=== PATIENT | male | born 1950 | race Caucasian/White ===

== ENCOUNTER → 2018-01-25 06:07 | Outpatient (CLI) | payer OTHER, SELFPAY ==
--- NOTE | 2018-01-25 10:02 | STRESSREP ---
Stress Test Report Exercise myocardial perfusion stress test. 67-year-old man with a history of chest pain. Stress protocol: Resting EKG demonstrates normal sinus rhythm with a rate of 65 bpm normal intervals and noted resting blood pressure is 128/86 mmHg. The patient exercised according to regular Jimmy protocol for a total duration of 9 minutes completing stage III of the Jimmy protocol. The maximum heart rate attained was 146 bpm which was 96% of maximum predicted heart rate the maximum workload attained was 10.1 metabolic equivalents. At rest there were no ST or T-wave changes noted suggest ischemia at peak exercise upsloping ST changes only were noted with no meet the criteria for ischemia. Resting blood pressure is 128/86 with a peak blood pressure 150/84 rate pressure product was 21,000. No clinical angina was noted occasional premature ventricular complexes only were noted. Myocardial perfusion protocol. 12.0 mCi of technetium 99m sestamibi was injected at rest. The patient exercised according to regular Jimmy protocol for 9 minutes attaining 96% maximum predicted heart rate at peak exercise 34.9 mCi of technetium 99m sestamibi was injected stress images were obtained stress and rest images were reconstructed and compared in the short axis vertical long and horizontal long axis. Gated images were also obtained. Perfusion SPECT analysis: Review of the stress images demonstrate normal uptake of tracer noted in all areas of the myocardium. The resting images similarly demonstrate normal uptake of tracer noted in all areas of myocardium no evidence of infarct is noted no ischemia is present. Gated SPECT analysis: The gated ejection fraction is 60%. Conclusion: Normal exercise myocardial perfusion stress test with no evidence of ischemia at a high workload. No clinical angina noted. Preserved ejection fraction.
== END ==
PROVIDERS: Family Provider Family Medicine; PCP Family Medicine; Visit Provider Family Medicine
DX: Z82.49 Family history of ischemic heart disease and other diseases of the circulatory system (principal)
CPT/HCPCS: 78452; 93017; A9500; A4216

== ENCOUNTER 2024-12-15 10:00 | Outpatient (RCR) | payer MEDICARE, BC, SELFPAY ==
--- NOTE | 2024-10-30 14:26 | HP.PTEVAL ---
Patient's Visit Information Visit Information Visit Information: ES GILMAN is a 73 year old M referred to Physical Therapy by HELIO CORTEZ with a diagnosis of NONTRAUMATIC TEAR OF R ROTATOR CUFF, UNSPECIFIED TEAR EXTENT. Date of Evaluation: 10/30/24 Physical Therapist: Rosalinda Kinsey PT, Cert MDT Visit Plan Frequency: 2-3x /Week Duration: 4-6 Months Plan: R SHLD STRENGTHENING FOCUSING ON SCAPULAR STABILIZERS AND STARTING WITH ROTATOR CUFF STRENGTHENING WITH ELBOW AT SIDE (DO NOT CAUSE PAIN) SUPINE WAND FLEXION STRETCH AND R SDLY SLEEPER STRETCH FOR IR ROM. R SHLD US AT 1.5 W/CM2 X 8 MIN X 6-8 VISITS. 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 Present symptoms: R NECK AND POSTERIOR SHLD PAIN. DENIES R UE NUMBNESS AND TINGLING. Present since: ABOUT 3 YEARS AGO. R BICEP TORE THIS FALL WHEN HAND CUTTING AN OAK LIMB WHILE ON A LADDER - A LOT OF SHLD PAIN. Getting Better, Getting Worse or Staying the Same: STAYING THE SAME Pain Scale: Worst - 6/10 Least - 1/10 Currently: /10 Commenced as a result of: NO APPARENT REASON Symptoms at onset: Worse: FLY MACHINE, CURLS, BENCH PRESS, INCLINE PRESS, WORK IN GENERAL Better: HEAT, COLD, RESTING IT, ALEVE, Excedrin Disturbed sleep: YES - DIFFICULTY FALLING ASLEEP BUT DOES NOT WAKE HIM UP. Previous history/Previous treatment: SX ON L WRIST A MONTH AGO. CHRIS JIMENEZ HAS DONE MULTIPLE SHOTS IN R SHLD WITH THE LAST ONE BEING ABOUT A YEAR AGO. Dizziness: NO Tinnitus: YES Nausea: NO Shortness of Breath: A LITTLE Difficulty Swallowing: NO Imaging: NONE RECENT PMH/Recent major surgery: ROXI THR'S, L TKR, R WRIST ORIF, L CTR SEP 2024 OTHER: PATIENT DENIES ANY PHYSICIAN RESTRICTIONS. Objective Objective: Posture: FH. RShld's. Sensory deficit: R SHLD LIGHT TOUCH SENSATION INTACT. ROM deficit: R SHLD FLEX 153 DEG COMPARED TO L SHLD 170 DEG IN SUPINE AND R SHLD PAIN WITH MVMT AND ERP. R SHLD FULL ABD AND ER TO 90 DEG WITH 80 DEG ABD. IR TO 60 DEG WITH 80 DEG ABD AND PATIENT DENIES PAIN WITH IR AND ER ROM TESTING. Motor deficit: R SHLD FLEX 4/5, ABD 4/5, IR 5/5, ER 4/5, ELBOW 5/5 ENROLLMENT MANAGEMENT VICE PRESIDENT 65 LBS. L SHLD 5/5, ELBOW 5/5 ENROLLMENT MANAGEMENT VICE PRESIDENT 65 LBS (L CTR 1 MONTH AGO). NEURO INTACT. Palpation: R BICEPS BULGE. PATIENT DENIES TENDERNESS WITH R UE PALPATION. Special Tests R Shoulder External Rotation Lag Test - RC Tear: Negative R Shoulder Drop Sign - IS Test: Negative R Shoulder Empty Can - SS: Negative R Shoulder Apprehension Test - Anterior Instability: Negative Balance/Special Test Scores Quick DASH Score: 27.5000 Goals Goal 1:: DECREASE C/O R SHLD PAIN BY AT LEAST 50% WITH WORK AND ADL FUNCTION Goal Time Frame: 4-6 Weeks Goal 2:: INCREASE R SHLD AROM TO SYMMETRICAL TO L. Goal Time Frame: 4-6 Weeks Goal 3:: INCREASE R SHLD STRENGTH TO SYMMETRICAL TO L Goal Time Frame: 4-6 Weeks Goal 4:: IMPROVE QUICK DASH SCORE BY AT LEAST 5 POINTS. Goal Time Frame: 4-6 Weeks Goal 5:: INDEP GYM EX PROGRAM THAT DOES NOT CAUSE INCREASED R SHLD PAIN Goal Time Frame: 4-6 Weeks Rehabilitation Potential Physical Therapy Diagnosis: R SHLD PAIN AND WEAKNESS. RUPTURE OF LONG HEAD OF BICEPS. Rehabilitation Potential: Good Anticipated Interventions Patient/Client Instruction: Educate patient on: Condition, Plan of Care and Risk Factors For the Purpose of:: To improve self management Therapeutic Exercise to Include: Strength training, Postural training, Neuromotor development, Passive ROM and Active ROM For the Purpose of:: To decrease pain, To increase ROM, To improve muscle performance and motor function, To improve ability to perform ADL's, To increase tolerance to activity/condition/position, To improve performance and independence with ADL's, To improve ability of physical actions for home/community/work/leisure, To decrease soft tissue restriction, To increase flexibility/ROM and To improve self management Manual Therapy Techniques to Include: Scar massage, Mobilization, Passive ROM and Soft tissue mobilization For the Purpose of:: To decrease pain, To decrease swelling/inflammation, To increase ROM, To improve nutrient delivery to tissue, To decrease soft tissue restriction and To increase flexibility/ROM Cryotherapy (ice pack, ice massage): Yes Thermo therapy (hot pack): Yes For the Purpose of:: To decrease pain and To decrease swelling/inflammation Text: Thank you for the opportunity to evaluate your patient. For Medicare and Medicare HMO plans, please review the plan of care and approve it. It will need to be FAXED BACK to us at [phone] for Medicare purposes. For Medicare only, by signing this I certify the plan of care. Please let me know if there are questions or concerns regarding this plan of care. Physician Signature: Date:
--- NOTE | 2024-11-27 11:42 | HP.PTREVAL ---
Re-Evaluation Intro: HELIO CORTEZ, It has been my pleasure to treat ES GILMAN over the last 8 visits for NONTRAUMATIC TEAR OF R ROTATOR CUFF, UNSPECIFIED TEAR EXTENT. Please see the progress note below for an update on the physical therapy plan of care! Subjective Subjective: PATIENT REPORTS ABOUT 20% IMPROVEMENT IN HIS R SHLD PAIN AND ABOUT 10% IMPROVEMENT IN HIS STRENGTH SINCE STARTING PHYSICAL THERAPY. HE REPORTS HE ENJOYS THE THERAPY AND WOULD LIKE TO CONTINUE UNTIL HE SEES THE DOCTOR AGAIN. HE REPORTS DIFFICULTY REACHING UP TO USE THE NAIL GUN, SWINGING THE SLEDGE HAMMER, TAKING THE LADDER TO THE BASEMENT AND PUTTING IT UP TO STORE IT. HE STATES HE BOUGHT THE LIGHTEST NAIL GUN AND LADDER HE COULD AND IT IS STILL DIFFICULT TO USE AND MOVE THEM. HE ALSO REPORTS CONSTANT R SHLD PAIN 2-10 AND STATES HE DOESN'T WANT TO KEEP DEALING WITH THE 7/10 PAIN BUT HE DOESN'T REALLY WANT TO HAVE SURGERY EITHER. Objective Objective/Function: PATIENT WAS SEEN TODAY FOR RE-ASSESSMENT OF PROGRESS TOWARD THE SET PT GOALS AND THE NEED FOR FURTHER PHYSICAL THERAPY VS READINESS FOR DISCHARGE. THIS PATIENT IS PROGRESSING SLOWLY WITH PROGRESSIVE RESISTIVE EX'S AND IS REPORTING LESS PAIN OVER-ALL. R SHLD ACTIVE ELEVATION 158 DEG. HE IS A GOOD CANDIDATE TO CONTINUE PT BASED ON PROGRESS MADE AND ROOM FOR FURHTER IMPROVEMENT HOWEVER HE ALSO APPEARS TO BE A GOOD CANDIDATE FOR MRI. R SHLD ABD IS STILL SIGNIFICANTLY WEAK WELL OVER-HEAD REACH. PATIENT AGREEABLE. Plan Plan Plan: CONTINUE PER POC 2X'S A WK X 4 WKS: R SHLD STRENGTHENING FOCUSING ON SCAPULAR STABILIZERS AND STARTING WITH ROTATOR CUFF STRENGTHENING WITH ELBOW AT SIDE (DO NOT CAUSE PAIN) SUPINE WAND FLEXION STRETCH AND R SDLY SLEEPER STRETCH FOR IR ROM. R SHLD US AT 1.5 W/CM2 X 8 MIN X 6-8 VISITS. TENS WITH MH OR CP TO R SHLD IN LYING WITH LEGS ELEVATED (NC) Balance/Gait/Functional tests Balance/Special Test Scores Quick DASH Score: 27.2725 Goals Goals Goal 1:: DECREASE C/O R SHLD PAIN BY AT LEAST 50% WITH WORK AND ADL FUNCTION Goal Time Frame: 4-6 Weeks Goal Progress: Progressing Goal 2:: INCREASE R SHLD AROM TO SYMMETRICAL TO L. Goal Time Frame: 4-6 Weeks Goal Progress: Progressing Goal 3:: INCREASE R SHLD STRENGTH TO SYMMETRICAL TO L Goal Time Frame: 4-6 Weeks Goal Progress: Progressing Goal 4:: IMPROVE QUICK DASH SCORE BY AT LEAST 5 POINTS. Goal Time Frame: 4-6 Weeks Goal 5:: INDEP GYM EX PROGRAM THAT DOES NOT CAUSE INCREASED R SHLD PAIN Goal Time Frame: 4-6 Weeks Goal Progress: Progressing Anticipated Interventions Anticipated Interventions Patient/Client Instruction: Educate patient on: Condition, Plan of Care and Risk Factors For the Purpose of:: To improve self management Therapeutic Exercise to Include: Strength training, Postural training, Neuromotor development, Passive ROM and Active ROM For the Purpose of:: To decrease pain, To increase ROM, To improve muscle performance and motor function, To improve ability to perform ADL's, To increase tolerance to activity/condition/position, To improve performance and independence with ADL's, To improve ability of physical actions for home/community/work/leisure, To decrease soft tissue restriction, To increase flexibility/ROM and To improve self management Manual Therapy Techniques to Include: Scar massage, Mobilization, Passive ROM and Soft tissue mobilization For the Purpose of:: To decrease pain, To decrease swelling/inflammation, To increase ROM, To improve nutrient delivery to tissue, To decrease soft tissue restriction and To increase flexibility/ROM Cryotherapy (ice pack, ice massage): Yes Thermo therapy (hot pack): Yes For the Purpose of:: To decrease pain and To decrease swelling/inflammation Re-Evaluation Ending Re-evaluation ending: Please do not hesitate to contact me at [phone] by phone or if you have questions or concerns regarding this new plan of care! Sincerely, Rosalinda Kinsey, PT, Cert MDT
--- NOTE | 2024-12-15 10:55 | HP.PTDCSUM ---
Discharge Summary D/C summary: It has been my pleasure to treat ES GILMAN referred by HELIO CORTEZ, with the diagnosis of NONTRAUMATIC TEAR OF R ROTATOR CUFF, UNSPECIFIED TEAR EXTENT for a total of 13 visit(s). Discharge Date: 12/15/24 Please see the following information for a summary of their discharge status. Subjective Subjective: I THINK WE'RE AT A [facility]. PATIENT REPORTS HE IS GOING TO KEEP WORKING OUT AND HE HAS PHYSICIAN FOLLOW UP TOMORROW. Pain R shoulder: Pain Intensity (Out of 10): 2 Overall Improvement % Improvement: 40 Objective Objective/Function: PATIENT WAS SEEN TODAY FOR RE-ASSESSMENT OF PROGRESS TOWARD THE SET PT GOALS AND THE NEED FOR FURTHER PHYSICAL THERAPY VS READINESS FOR DISCHARGE. PATIENT REPORTS HE HAS ENJOYED THE THERAPY BUT AT THIS POINT PATIENT'S SYMPTOMS ARE PLATEAUING AND HE IS APPROPRIATE FOR DISCHARGE TO PHYSICIAN FOLLOW UP. HE IS AGREEABLE. HE HAS PHYSICIAN RE-CHECK SCHEDULED TOMORROW. HE APPEARS TO BE A GOOD CANDIDATE FOR MRI. R SHLD ABD IS STILL SIGNIFICANTLY WEAK WELL OVER-HEAD REACH. UPON EXAM TODAY: R SHLD ACTIVE ELEVATION TO 155 DEG AND ABD TO 133 DEG (FULL SCAPTION AROM THOUGH). STRENGTH: SHLD FLEX: R 22.0, L 39.0 LBS SHLD ABD: R 17.5, L 34.6 LBS SHLD IR: R 24.4, L 25.8 LBS SHLD ER: R 18.8, L 25.3 LBS ELBOW FLEX: R 41.7, L 43.4 LBS ELBOW EXT: R 30.7, L 31.6 LBS. Goals Goal 1:: DECREASE C/O R SHLD PAIN BY AT LEAST 50% WITH WORK AND ADL FUNCTION Goal Progress: Not cont. to progress Goal 2:: INCREASE R SHLD AROM TO SYMMETRICAL TO L. Goal Progress: Not cont. to progress Goal 3:: INCREASE R SHLD STRENGTH TO SYMMETRICAL TO L Goal Progress: Not Met Goal 4:: IMPROVE QUICK DASH SCORE BY AT LEAST 5 POINTS. Goal Progress: Not Met Goal 5:: INDEP GYM EX PROGRAM THAT DOES NOT CAUSE INCREASED R SHLD PAIN Goal Progress: Goal Met Plan Plan: D/C TO INDEP EX AND PHYSICIAN FOLLOW UP. PATIENT AGREEABLE. D/C Information d/c sentence: If there are questions or concerns regarding this patient's physical therapy, please feel free to call me at [phone]. Thank you for the referral of this patient. Sincerely, Rosalinda Kinsey PT, Cert MDT Balance/Gait/Functional tests Balance/Special Test Scores Quick DASH Score: 25.0000 Improvement % Improvement: 40
== END 2024-12-15 19:00 | disposition home or self-care (01) ==
LOC: PT 10:00
DX: M75.101 Unspecified rotator cuff tear or rupture of right shoulder, not specified as traumatic (principal)
CPT/HCPCS: 97014; 97035; 97110; 97162; 97530; G0283

== ENCOUNTER 2025-07-11 13:05 | Inpatient (IN) | payer MEDICARE, BC, SELFPAY ==
[2025-07-11 13:06] VITALS: BP 117/80; PULSE 77; RESP 16; TEMP 36.8; O2SAT 98
[2025-07-11 13:07] VITALS: BMI 30.7
--- NOTE | 2025-07-11 13:57 | RAD_ITS ---
PROCEDURE: HIP, UNI W/ PELVIS 2-3 VIEWS 07/11/2025 REASON FOR EXAM: TRAUMA TECHNIQUE: Procedure Code: [facility] Modality: DX Procedure: HIP, UNI W/ PELVIS 2-3 VIEWS COMPARISON: None. FINDINGS: There are fractures of the left superior and inferior pubic ramus. Suspect a vertical fracture of the left sacral ala. There is degenerative spurring of both SI joints. There is degenerative disc disease, L2-3 through L5-S1. There are bilateral hip arthroplasties. There is no evidence of acute fracture or dislocation. There are no soft tissue abnormalities. RAD/HIP, UNI W/ Pelvis 2-3 Views IMPRESSION: 1. Fractures of the left superior and inferior pubic rami. 2. Suspect a fracture of the left sacral ala. 3. Other findings as noted. Reading Location: [id number]
--- NOTE | 2025-07-11 13:57 | RAD_ITS ---
PROCEDURE: SHOULDER MIN 2 VIEWS 07/11/2025 REASON FOR EXAM: TRAUMA TECHNIQUE: Procedure Code: [facility] Modality: DX Procedure: SHOULDER MIN 2 VIEWS COMPARISON: None. FINDINGS: There is no evidence of acute fracture or dislocation. 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 There is mild arthritis of the acromioclavicular and glenohumeral joints. There is cranial migration of the humeral head consistent with rotator cuff arthropathy. There is chronic interstitial lung disease of the left lung noted. RAD/Shoulder min 2 Views IMPRESSION: 1. No evidence of acute fracture or dislocation. 2. 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 3. Arthritis of the acromioclavicular and glenohumeral joints and rotator cuff arthropathy. Reading Location: [id number]
--- NOTE | 2025-07-11 13:58 | ED.VIS.LOWEX ---
HPI History of Present Illness Chief Complaint: Lower Extremity Injury Narrative Narrative: 74-year-old male past medical history of bilateral CATRACHITA's, right shoulder rotator cuff surgery presents with injury to his left hip, and also to his left shoulder that he sustained as he was standing on a bench and the bench flipped over. He states he was at home repairing some drywall, and the bench started to slide. He fell onto his left side. He denies hitting his head or loss of consciousness, no neck pain. However, he is mainly having problems with his left hip. He states that he has pain when he moves his leg and that he is unable to pick it up. He also has pain in his left shoulder/proximal humerus and states he is unable to raise his left arm independently. He presents because he states that his neighbor is a primary care provider for [facility]. He was the one that brought him to the hospital. He had to lay on the floor and sit up for a bit, got a wheelchair from his sister, and his neighbor helped pick him up, put him in a wheelchair, got him into the car and drove him to the emergency department. [facility] Medical History Encounter for screening for COVID-19 Allergy/AdvReac Type Severity Reaction Status Date / Time latex Allergy Intermediate . Verified 07/11/25 13:07 Social History Smoking Status: Never smoker ROS ROS ED ROS Narrative Review of systems positive for left shoulder pain and left hip pain, unable to filler picker the leg off bed secondary to hip pain, states also unable to move left shoulder secondary to shoulder pain. Right hand dominant. No hitting of head, no loss of consciousness, no neck pain, no other injury. EXAM Physical Exam Narrative Exam Narrative: GCS 15. ABCs are intact. Cardiovascular examination reveals a regular rate and rhythm. Lungs are clear to auscultation bilaterally. Abdomen is soft nontender with positive bowel sounds. Diffuse tenderness to palpation left shoulder but no clinical dislocation. Unable to hold up left arm at shoulder joint. Strong radial pulse, left. Diffuse tenderness palpation left hip. Able to slight, flex and extend knee but unable to filler picker leg directly off bed. Appears neurovascular tact distally as well. Const Vital Signs: 07/11/25 13:06 07/11/25 15:06 Temperature 98.3 F Temperature Source Oral Pulse Rate 77 76 Respiratory Rate 16 16 Blood Pressure 117/80 135/78 H Blood Pressure Mean 92 97 Pulse Ox 98 97 Oxygen Delivery Method Room Air Room Air MDM MDM MDM Narrative Medical decision making narrative: Differential diagnosis includes but not limited to shoulder contusion versus dislocation versus fracture of the proximal humerus versus ligamentous problem. Additionally he may have a periprosthetic fracture versus a pubic ramus fracture of the left hip. Patient given a [place] tablet for analgesia and x-rays obtained of the left shoulder as well as the left hip and pelvis. On my independent interpretation of the left hip x-ray, there is no periprosthetic fracture, no dislocation of the left hip, however he has both inferior and superior pubic ramus fractures and possible sacral fracture. I reviewed the radiology report which confirms my independent interpretation. 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 Once again I reviewed the radiology report which confirms my independent interpretation. At this point in time, attempt was made to ambulate the patient even with a walker, but he was unable to do so and he is unable to bear weight on his left lower extremity. This was even after [place] orally which would been have been written for him. As he is unable to ambulate and lives alone, I obtain basic laboratory work. I do feel that he needs admission for PT/OT and probable rehab placement. I reviewed his laboratory work and he has an elevated white count of 16.4 which I think is nonspecific, hemoglobin 15.0, BMP is remarkable for CO2 of 20.7 and a glucose of 109 with a normal anion gap of 11. I discussed patient with Dr. Aguila for admission to the general medical floor. Disposition is admit in stable condition. History & Record Review Discussion w/independent historian: Patient Additional record(s) reviewed:: No prior records (No prior ED visits) Lab Data Attestation: I reviewed the patient's lab results. Labs: Laboratory Results - last 24 hr 07/11/25 15:48 WBC 16.4 H RBC 5.23 Hgb 15.0 Hct 44.9 MCV 85.9 MCH 28.7 MCHC 33.4 RDW Std Deviation 41.6 RDW Coeff of Petr 13.2 Plt Count 238 MPV 10.3 Immature Gran % (Auto) 0.900 Neut % (Auto) 82.5 H Lymph % (Auto) 8.8 L Taney % (Auto) 6.7 Eos % (Auto) 0.7 Baso % (Auto) 0.4 Absolute Neuts (auto) 13.6 H Absolute Lymphs (auto) 1.45 Nucleated RBC % 0 Sodium 138 Potassium 4.2 Chloride 106 Carbon Dioxide 20.7 L Anion Gap 11 BUN 19 Creatinine 0.73 Estim Creat Clear Calc 96.12 Est GFR (MDRD) Non-Af 95 BUN/Creatinine Ratio 25.5 H Glucose 109 H Calcium 9.2 Radiography Diagnostic Testing: Clinical Impression(s) from Imaging Studies Hip/Pelvis X-Ray 07/11/25 13:57 IMPRESSION: 1. Fractures of the left superior and inferior pubic rami. 2. Suspect a fracture of the left sacral ala. 3. Other findings as noted. Reading Location: [facility] Shoulder X-Ray 07/11/25 13:57 IMPRESSION: 1. No evidence of acute fracture or dislocation. 2. 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 3. Arthritis of the acromioclavicular and glenohumeral joints and rotator cuff arthropathy. Reading Location: [facility] Discharge Plan Dx/Rx/DC Orders Clinical Impression: Inability to ambulate due to hip, Closed fracture of pubic ramus, Sacral fracture, Fall, Contusion of left shoulder Disposition Disposition: Acute Care Hospital [facility]
--- OUTSIDE RECORDS SUMMARY | 2025-07-11 14:09 | XMS RPT_ITS | CCD ---
Author Organization [facility] Care Team Providers Care Lobster Fisherman Name Role Phone PARMINDER CROUCH Unavailable Unavailable Pinky VACA, Wei Munroe Unavailable Vinay Dunbar DO, Dennis Primary Care Provider Jensen Elizabeth MD Unavailable Parminder Crouch MD Unavailable [phone] Avis Milton PT Unavailable Luis Holliday MD Unavailable Vinay Dunbar DO, Dennis Primary Care Provider Jensen Elizabeth MD Unavailable Avis Milton PT Unavailable [phone] Luis Holliday MD Unavailable Vinay Dunbar DO Giovanni Primary Care Provider LUIS RIDER Referring Unavailable LUIS RIDER Attending Unavailable Care Physician, No Primary Primary Care Unava ilable STEPHAN YUN Attending Unavailabl e VINAY, GIOVANNI Primary Care Unavailable VINAY, GIOVANNI Referring Unavailable STEPHAN YUN Attending Unavailabl e VINAY, GIOVANNI Primary Care Unavailable STEPHAN YUN Admitting Unavailabl e SELF Referring Unavailable VINAY, GIOVANNI Primary Care Unavailable HELIO CORTEZ Attending Unavailable VINAY, GIOVANNI Primary Care Unavailable HELIO CORTEZ Attending Unavailable SURESH SOTO Attending Unavailable VINAY, GIOVANNI Primary Care Unavailable HELIO CORTEZ Referring Unavailable VINAY, GIOVANNI Primary Care Unavailable HELIO CORTEZ Referring Unavailable SURESH SOTO Attending Unavailable VINAY, GIOVANNI Primary Care Unavailable HELIO CORTEZ Referring Unavailable VINAY, GIOVANNI Primary Care Unavailable HELIO CORTEZ Attending Unavailable VINAY, GIOVANNI Primary Care Unavailable CORTEZHELIO Stewart Attending Unavailable VINAY, GIOVANNI Primary Care Unavailable HELIO CORTEZ Attending Unavailable VINAY, GIOVANNI Primary Care Unavailable HELIO CORTEZ Attending Unavailable KAT PALOMO Attending Unavailable VINAY, GIOVANNI Primary Care Unavailable VINAY, GIOVANNI Primary Care Unavailable HELIO CORTEZ Admitting Unavailable CORTEZ, HELIO Magdaleno Attending Unavailable DANA, HELIO A Referring Unavailable VINAY, GIOVANNI Primary Care Unavailable VINAY, GIOVANNI Referring Unavailable VINAY, GIOVANNI Primary Care Unavailable CORTEZ, HELIO A Referring Unavailable VINAY, GIOVANNI Primary Care Unavailable SURESH SOTO Referring Unavailable VINAY, GIOVANNI Primary Care Unavailable JUAN LAFLEUR Attending Unavailable DANA, HELIO Magdaleno Referring Unavailable VINAY, GIOVANNI Primary Care Unavailable JUAN LAFLEUR Attending Unavailable CORTEZ, HELIO Magdaleno Referring Unavailable VINAY, GIOVANNI Primary Care Unavailable JUAN LAFLEUR Attending Unavailable DANA, HELIO Magdaleno Referring Unavailable VINAY, GIOVANNI Primary Care Unavailable CORTEZ, HELIO A Referring Unavailable VINAY, GIOVANNI Primary Care Unavailable JUAN LAFLEUR Attending Unavailable CORTEZ, HELIO Magdaleno Referring Unavailable VINAY, GIOVANNI Primary Care Unavailable Allergies Allergy Classification Reported Allergen(s) Allergy Type Date of Onset Reaction(s) Facility (20 sources) Latex; Translations: [LATEX] Propensity to adverse reactions to drug (disorder) 1 Rash [facility] Repository Medications Current Medications Medication Drug Class(es) Dates Sig (Normalized) Sig (Original) acetaminophen 325 mg oral tablet (20 sources) Start: 04-20-2025 take 2 tablets by mouth every six hours as needed acetaminophen (TYLENOL) 325 mg tablet Take 2 tablets by mouth every 6 hours as needed for pain. 60 tablet 1 04/20/2025 Active Start: 03-16-2022 take 2 tablets by mo uth every eight hours as needed acetaminophen (TYLENOL EXTRA STRENGTH) 500 mg tablet Take 2 tablets by mouth every 8 hours as needed for pain. 60 tablet 03/17/2022 12:35 PM EDT 03/16/2022 Active Comment on above: Take 2 tablets by mo uth every 8 hours as needed for pain. azithromycin 250 mg oral tablet (1 source) Macrolide Antimicrobial Start: 09-30-20 End: 10-05-20 24 take 2 tablets by mouth once daily, then take 1 tablet by mouth once daily azithromycin (ZITHROMAX) 250 mg tablet Take 2 tablets by mouth once daily for 1 day, THEN 1 tablet once daily for 4 days. 6 tablet 09/30/2024 10/05/2024 Active Calcium Carbonate / vitamin D3 (20 sources) calcium carbonate/vitamin D3 (CALCIUM 500 + D ORAL) Indications: Preoperative examination , Primary osteoarthritis of right hip Take by mouth. Active calcium carbonat e/vitamin D3 (CALCIUM 500 + D ORAL) Indications: Preoperative examination , Primary osteoarthritis of right hip Take by mouth. 0 Active Comment on above: Take by mouth. ibuprofen 800 mg oral tablet (7 sources) Nonsteroidal Anti-inflammatory Drug Start: take 1 tablet by mouth every eight hours as needed ibuprofen (MOTRIN) 800 mg tablet Take 1 tablet by mouth every 8 hours as needed for pain. 30 tablet 1 04/20/2025 Active multivitamin tablet (20 sources) take 1 tablet by mouth once daily multivitamin tablet Take 1 tablet by mouth once daily. Active take 1 tablet by mouth once loraine y multivitamin tablet Take 1 tablet by mouth once daily. 0 Active Comment on above: Take 1 tablet by maria th once daily. Completed/Discontinued Medications Medication Drug Class(es) Dates Sig (Normalized) Sig (Original) aspirin 81 mg delayed release oral tablet (20 sources) Platelet Aggregation Inhibitor, Nonsteroidal Anti-inflammatory Drug Start: 03-16-2022 End: 03-27-2025 take 1 tablet by mouth twice daily aspirin, enteric coated (ECOTRIN LOW STRENGTH) 81 mg EC tablet Take 1 tablet by mouth twice daily for 28 days. 56 tablet 03/17/2022 12:35 PM EDT 03/16/2022 03/27/2025 Discontinued Start: 10-27-2019 ASPIRIN 81 MG TBEC One tablet daily ASPIRIN [id number] Wei Vance MD Comment on above: Take 81 mg by mouth once daily. Take 1 tablet by maria th twice daily for 28 days. betamethasone 3 mg/ml / betamethasone acetate 3 mg/ml injectable suspension (2 sources) Corticosteroid Start: End: betamethasone acetate-betamethason e sodium phosphate 6 mg injection Signed by JUAN LAFLEUR PT on 06/02/2025 at 8:29 AM * * * This document replaces document [id number] * * * Document text: Program_ID:[id number] Access Code: [email or web address] URL: [email or web address]/ Date: 06-02-2025 Prepared By: Juan Lafleur Program Notes Exercises - Seated Scapular Retraction - 1 x daily - 7 x weekly - 4 sets - 10 reps - Towel Roll Squeeze - 1 x daily - 7 x weekly - 4 sets - 10 reps - Standing Shoulder Extension with Dowel - 1 x daily - 7 x weekly - 4 sets - 10 reps - Standing Shoulder Abduction AAROM with Dowel - 1 x daily - 7 x weekly - 4 sets - 10 reps - Standing Shoulder Row with Anchored Resistance - 1 x daily - 7 x weekly - 4 sets - 10 reps - Standing Shoulder External and Internal Rotation AROM - 1 x daily - 7 x weekly - 4 sets - 10 reps - Seated Shoulder Flexion AAROM with Dowel - 1 x daily - 7 x weekly - 4 sets - 10 reps ----- [facility] THERAPY NTon 06-02-2025 THERAPY NT HNO ID: [id number] Author: JUAN LAFLEUR PT Service: ? Author Type: Physical Therapist Type: Therapy (PT/OT/Speech/Resp) Filed: 06/02/2025 08:29 Note Text: Program_ID:[id number] Access Code: [email or web address] URL: [email or web address] Date: 06-02-2025 Prepared By: Juan Lafleur Program Notes Exercises - Seated Scapular Retraction - 1 x daily - 7 x weekly - 4 sets - 10 reps - Towel Roll Squeeze - 1 x daily - 7 x weekly - 4 sets - 10 reps - Standing Shoulder Extension with Dowel - 1 x daily - 7 x weekly - 4 sets - 10 reps - Standing Shoulder Abduction AAROM with Dowel - 1 x daily - 7 x weekly - 4 sets - 10 reps - Standing Shoulder Row with Anchored Resistance - 1 x daily - 7 x weekly - 4 sets - 10 reps - Standing Shoulder External and Internal Rotation AROM - 1 x daily - 7 x weekly - 4 sets - 10 reps - Seated Shoulder Flexion AAROM with Dowel - 1 x daily - 7 x weekly - 4 sets - 10 reps [facility] [id number] 05-25-2025 [id number] HNO ID: [id number] Author: JUAN LAFLEUR PT Service: ? Author Type: Physical Therapist Type: [id number] Filed: 05/25/2025 12:12 Note Text: [facility] Therapy Physical Therapy Plan of Care Certification Patient Name: Shimon Amato : 1950 [facility] #: [id number] Date: 05/25/2025 To: Helio Cortez MD From Therapist: Juan Lafleur PT RE: Patient Certification/ Recertification Your review, approval and electronic signature are required in order to comply with Payor: MEDICARE / Plan: MEDICARE A AND B / Product Type: Medicare / regulations. The identified Physical Therapy PLAN OF CARE for the patient is as follows: M75.101 Nontraumatic tear of right rotator cuff, unspecified tear extent PLAN OF CARE: Assessment: Shimon Amato presents with diagnosis of RCR repair on 04/20/2025 that interferes with reaching behind back, reaching overhead, carrying, lifting . The patient presents with impairments in ADL's, independence in exercise, overall function, range of motion, and strength. PROMIS? (Patient-Reported Outcomes Measurement Information System) scores were reviewed and identified as a rehabilitation concern. Prognosis for therapy is Good due to: current objective clinical presentation . The patient will benefit from skilled therapy services to meet the goals established for this plan of care as noted below. Goals for Episode of Care: established 05/25/25 [place] in home exercise program. Patient will decrease pain rating by 2 points to meet minimal clinical important difference for numeric pain rating scale. Perform work duties without pain. Increase ROM of the RUE to WNL for ease of dressing, grooming, and reaching overhead into cabinets Increased strength of RUE to 5/5 for return to PLOF and lifting heavier objects Patient Goals: Return to PLOF Time Frame for Goals and Treatment : 09/14/25 Planned Interventions, Frequency, and Duration: Current Frequency: 1x/week Duration: 4 weeks Total Number of Visits Planned: 4 Planned Treatment Interventions: Therapeutic exercise (91355), Neuromuscular re-education (28928), Manual therapy (26979), Therapeutic activities (79949), Self-fci management (12746), Gait Training (14508), [facility] Education PLAN FOR NEXT VISIT: RCR protocol Patient demonstrates good understanding of plan of care and treatment. The above goals and plan of care were discussed and agreed upon by patient/family. For further details regarding this patient refer to the Physical Therapy electronically documented visit dated 05/25/2025. Provider Attestation I have reviewed the treatment plan for Shimon Bernard Lm, CCF# [id number] for the period of 05/25/25 -- 07/20/25, established on 05/25/2025. Signature certifies the need for therapy services. [facility] CNTHERAPYon 05-25-2025 CNTHERAPY OT/PT/Speech Visit (PTWS) SAMREEN AMATOIAN MARCO ANTONIO ([id number]) 1950 M Date Time Provider Department 05/25/25 11:30 AM JUAN LAFLEUR PTGERMÁN Date Time Provider Department [place] 05/25/2025 11:30 AM [id number], COREY PTWS Ilia Rodas Reason for Visit: PT Eval [747] Visit Diagnosis:Nontraumati c tear of right rotator cuff, unspecified tear extent [M75.101] Allergies As of Date: 05/25/2025 Noted Allergy Reaction LATEX 02/09/2011 2 - Rash Date Reviewed: 05/05/2025 Reviewed by: Helio Cortez MD - Fully Assessed Prescriptions as of 05/25/2025 - ibuprofen (MOTRIN) 800 mg tablet Take 1 tablet by mouth every 8 hours as needed for pain. - acetaminophen (TYLENOL) 325 mg tablet Take 2 tablets by mouth every 6 hours as needed for pain. - acetaminophen (TYLENOL EXTRA STRENGTH) 500 mg tablet Take 2 tablets by mouth every 8 hours as needed for pain. - aspirin, enteric coated (ASPIRIN, ENTERIC COATED) 81 mg EC tablet Take 81 mg by mouth once daily. - calcium carbonate/vitamin D3 (CALCIUM 500 + D ORAL) Take by mouth. - multivitamin tablet Take 1 tablet by mouth once daily. 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 (PT/OT/Speech/Resp) ID: [id number] 05/25/2025 11:54 AM Author: JUAN LAFLEUR Signed by JUAN LAFLEUR PT on 05/25/2025 at 11:54 AM Document text: Program_ID:[id number] Access Code: [email or web address] URL: [email or web address]/ Date: 05-25-2025 Prepared By: Juan Lafleur Program Notes Exercises - Supine Shoulder Flexion Extension AAROM with Dowel - 1 x daily - 6 x weekly - 4 sets - 10 reps - Supine Shoulder External Rotation with Dowel - 1 x daily - 7 x weekly - 4 sets - 10 reps - Seated Scapular Retraction - 1 x daily - 7 x weekly - 4 sets - 10 reps - Towel Roll Squeeze - 1 x daily - 7 x weekly - 4 sets - 10 reps ----- [facility] THERAPY NTon 05-25-2025 THERAPY NT HNO ID: [id number] Author: JUAN LAFLEUR PT Service: ? Author Type: Physical Therapist Type: Therapy (PT/OT/Speech/Resp) Filed: 05/25/2025 11:54 Note Text: Program_ID:[id number] Access Code: [email or web address] URL: [email or web address]/ Date: 05-25-2025 Prepared By: Juan Lafleur Program Notes Exercises - Supine Shoulder Flexion Extension AAROM with Dowel - 1 x daily - 6 x weekly - 4 sets - 10 reps - Supine Shoulder External Rotation with Dowel - 1 x daily - 7 x weekly - 4 sets - 10 reps - Seated Scapular Retraction - 1 x daily - 7 x weekly - 4 sets - 10 reps - Towel Roll Squeeze - 1 x daily - 7 x weekly - 4 sets - 10 reps [facility] CNOVon 05-05-2025 CNOV Office Visit (AGHWG1 ) SHIMON AMATO ([id number]) 1950 M Date Time Provider Department 05/05/25 11:00 AM HELIO CORTEZ AGHWG1 During your visit today, we recorded the following information about you: Respiration Weight Height 18/minute 97.5 kg 1.854 m Helio Cortez MD 05/05/2025 11:35 AM Signed Reason for Visit/Chief Complaint: Routine Post-Op Visit Date of Surgery: 04/20/25 Surgery Performed: Right shoulder arthroscopic rotator cuff repair, debridement biceps tendon rupture and superior labrum History of Present Illness: Patient is status post above-stated procedure. Overall doing well. Denies any sensorimotor changes or wound issues. Pain controlled. Patient is compliant with sling. Has not begun physical therapy per instruction. No other complaints at this time Physical Exam Right Shoulder No gross swelling or epitrochlear lymphadenopathy appreciated Sensation grossly intact to all dermatomal distributions Radial pulse palpable Incisions healing well with no redness, drainage or signs of infection. Steri-strips in place Range of motion deferred at this time. Fires deltoid No neurological deficits appreciated Imaging: None Assessment: S/p above stated procedure, doing well Plan: 1) Pain control- Continue pain medications as prescribed. Risks of medications discussed 2) PT- None at this time per our instruction. Ok to begin at 4 weeks. 3) Immobilization- Continue sling at all times. May remove for hygiene, elbow, wrist, and finger motion . Ok to remove at 6 weeks. 4) Weight-bearing- NWB 5) Follow-up- Patient to follow up in 4 weeks. Helio Cortez MD 05/05/2025 11:19 AM Allergies As of Date: 05/05/2025 Noted Allergy Reaction LATEX 02/09/2011 2 - Rash Date Reviewed: 05/05/2025 Reviewed by: Helio Cortez MD - Fully Assessed Reason for Visit: Post Op [174] Primary Visit Diagnosis:Tear of right rotator cuff, unspecified tear extent, unspecified whether traumatic [M75.101] Order(s):CONSULT TO PHYSICAL THERAPY [9032] Order #: [id number]: 1 FUTURE Prescriptions as of 05/05/2025 - ibuprofen (MOTRIN) 800 mg tablet Take 1 tablet by mouth every 8 hours as needed for pain. - acetaminophen (TYLENOL) 325 mg tablet Take 2 tablets by mouth every 6 hours as needed for pain. - acetaminophen (TYLENOL EXTRA STRENGTH) 500 mg tablet Take 2 tablets by mouth every 8 hours as needed for pain. - aspirin, enteric coated (ASPIRIN, ENTERIC COATED) 81 mg EC tablet Take 81 mg by mouth once daily. - calcium carbonate/vitamin D3 (CALCIUM 500 + D ORAL) Take by mouth. - multivitamin tablet Take 1 tablet by mouth once daily. 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] 12/18/2006 Pain in joint, pelvic region and thigh [M25.559]05/22/2011 Urinary incontinence [R32] 09/15/2015 Benign non-nodular prostatic hyperplasia with l*09/15/2015 Primary osteoarthritis of right hip [M16.11] 07/16/2018 Hip osteoarthritis [M16.9] 08/13/2018 Status post bilateral hip replacements [Z96.643]09/24/2018 Post-traumatic osteoarthritis, right wrist [M19*04/26/2020 MYLENE (obstructive sleep apnea) [G47.33] 04/26/2020 Hypertension, essential [I10] 08/03/2021 Osteoarthritis of left knee [M17.12] 02/22/2022 S/P total knee arthroplasty, left [Z96.652] 03/16/2022 Obesity, Class I, BMI 30-34.9 [E66.811] 03/16/2022 Status post left knee replacement [Z96.652] 04/05/2022 06/02/2022 Preop examination [Z01.818] 04/10/2025 Traumatic complete tear of right rotator cuff [*04/10/2025 Rupture of right proximal biceps tendon [S46.21*04/10/2025 H/O echocardiogram [Z92.89] 04/13/2025 Disposition: Return in about 4 weeks (around 06/02/2025). Follow-up and Disposition History for Encounter Date Provider Department Center 05/05/2025 [id number] CORTEZ AGHWG1 [facility] Encounter Status:Closed by HELIO CORTEZ on 05/05/25 [facility] ANES POSTPROC EVALon 025 ANES POSTPROC EVAL HNO ID: [id number] Author: LINCOLN ALFONSO MD Service: Anesthesiology Author Type: Anesthesiologist Type: Anesthesia Postprocedure Evaluation Filed: 04/20/2025 12:38 Note Text: POST ANESTHESIA EVALUATION NOTE : 1950 Procedure Summary Date: 04/20/25 Room / Location: [address] Anesthesia Start: 1019 Anesthesia Stop: 1213 Procedures: ARTHROSCOPY SHOULDER ROTATOR CUFF (rotator cuff repair right shoulder)--Right shoulder arthroscopic rotator cuff repair, possible biceps tenodesis (Right: Shoulder) ARTHROSCOPY SHOULDER BICEPS TENODESIS (possible biceps tenodesis) (Right: Shoulder) Diagnosis: Traumatic complete tear of right rotator cuff, subsequent encounter Rupture of right proximal biceps tendon, initial encounter (Traumatic complete tear of right rotator cuff, subsequent encounter [S46.011D]) (Rupture of right proximal biceps tendon, initial encounter [S46.211A]) Surgeons: Helio Cortez MD Responsible Provider: Lincoln Alfonso MD Anesthesia Type: general ASA Status: 2 Anesthesia Type: general Airway Type: ETT Last Vitals Vitals Value Taken Time BP 111/72 04/20/25 1231 Temp 36 ?C (96.8 ?F) 04/20/25 1211 Pulse 69 04/20/25 1237 Resp 18 04/20/25 1237 SpO2 93 % 04/20/25 1237 Vitals shown include unfiled device data. Post Anesthesia Patient Status Patient Evaluation: PACU. PACU/ICU Patient Condition: stable. Anticipated Disposition: phase 2 then home. Neurological Status: sleepy but arousable. Pulmonary Status: breathing comfortably on room air Airway Control: returned to baseline unsupported. Cardiovascular Status: stable. Pain Management: clinically adequate Postoperative Hydration: acceptable. Intraoperative Events: no significant anesthesia events Post Operative Nausea/Vomiting Status: no significant post operative nausea or vomiting Recommendation: further care per PACU/ICU/floor team. Anesthesia Observations No Documentation SIGNATURE: Lincoln Alfonso MD PATIENT NAME: Shimon Amato DATE: April 20, 2025 TIME: 12:38 PM CSN: [id number] [facility] ANES PRE-OPon 04-20-2025 ANES PRE-OP HNO ID: [id number] Author: PRIETO DURANT MD Service: Anesthesiology Author Type: Anesthesiologist Type: Anesthesia Preprocedure Evaluation Filed: 04/20/2025 09:01 Note Text: ANESTHESIOLOGY DAY OF SURGERY NOTE : 1950 Procedure Information Date/Time: 04/20/25929 Procedures: ARTHROSCOPY SHOULDER ROTATOR CUFF (rotator cuff repair right shoulder)--Right shoulder arthroscopic rotator cuff repair, possible biceps tenodesis (Right: Shoulder) - GENERAL + BLOCK ARTHROSCOPY SHOULDER BICEPS TENODESIS (possible biceps tenodesis) (Right: Shoulder) Location: [place] [address] / [facility] Surgeons: Helio Cortez MD Estimated body mass index is 28.37 kg/m? as calculated from the following: Height as of this encounter: 185.4 cm (6' 1). Weight as of this encounter: 97.5 kg (215 lb). Most recent hematocrit and potassium results: Hematocrit 48.3 09/27/2023 Potassium 4.3 09/27/2023 Relevant Problems ANESTHESIA (+) MYLENE (obstructive sleep apnea) CARDIO (+) Hypertension, essential PULMONARY (+) MYLENE (obstructive sleep apnea) Other (+) Hip osteoarthritis (+) Osteoarthritis of left knee (+) Primary osteoarthritis of right hip Cervical stenosis without paresthesias. Normal ROM Patient consents to nerve block I - PHYSICAL EVALUATION AIRWAY Patient intubated: No. Tracheostomy tube not present Mallampati: III. TM distance: >3 FB. Neck ROM: full ROM without neurological symptoms. Mouth opening: adequate. Short neck: no. Thick neck: no DENTAL Dental findings: teeth intact. Additional exam findings: yes. CARDIOVASCULAR Additional comments: No results found for this or any previous visit (from the past 4464 hours). . II - ANESTHESIA PLAN ASA Score: 2 Anesthetic Plan: general Airway type: ETT The patient is not a current smoker. NPO Status: adequate Beta Ann Monitoring Plan Monitoring plan: standard ASA. Post Procedure Analgesic Plan Postoperative analgesic plan: multimodal analgesia and peripheral nerve block. Informed Consent Anesthetic risks, benefits, alternatives, personnel and consent discussed: yes. Patient / Responsible Libertarian agrees to proceed: yes Patient / Surrogate agrees to blood products: Yes Potential Anesthesia issues that may suggest increased risk of complications or contraindication to planned procedure: none. Vitals Value Taken Time BP 129/86 04/20/25 0759 Pulse 65 04/20/25 0759 Resp 16 04/20/25 0759 Temp 36.2 ?C (97.2 ?F) 04/20/25 0759 SpO2 95 % 04/20/25 0759 Facility-Administered Medications as of 04/20/2025 Medication Dose Route Frequency ceFAZolin iv piggyback 2 g in D5W (iso-osmotic) 100 mL (ANCEF) 2 g INTRAVENOUS ONCE Outpatient Medications as of 04/20/2025 Medication Sig acetaminophen (TYLENOL EXTRA STRENGTH) 500 mg tablet Take 2 tablets by mouth every 8 hours as needed for pain. aspirin, enteric coated (ASPIRIN, ENTERIC COATED) 81 mg EC tablet Take 81 mg by mouth once daily. calcium carbonate/vitamin D3 (CALCIUM 500 + D ORAL) Take by mouth. multivitamin tablet Take 1 tablet by mouth once daily. I have interviewed and examined the patient. I have reviewed the medical record and/or the pre-anesthesia evaluation, pertinent labs, and test results. This contains updated information obtained within 48 hours of Surgery/Procedure. SIGNATURE: Prieto Durant MD PATIENT NAME: Shimon Amato DATE: April 20, 2025 TIME: 8:57 AM CSN: [id number] Normal [facility] HISTORY PHYSICALon HISTORY PHYSICAL HNO ID: [id number] Author: HELIO CORTEZ MD Service: Orthopaedic Surgery Author Type: Physician Type: H&P Filed: 04/20/2025 09:42 Note Text: UPDATED HISTORY AND PHYSICAL EXAMINATION SERVICE DATE: 04/20/2025 SERVICE TIME: 9:42 AM PHYSICAL EXAM MUST BE COMPLETED ON ADMISSION The History and Physical (completed in the past 30 days) has been reviewed and the patient has been examined. The contents accurately reflect the patient's condition with the following additions or revisions since the HANDP was completed. Examination indicates no changes. This HANDP can be found in the Electronic Medical Record dated 04/13/25. Heart RRR Lungs NLB SIGNATURE: Helio Cortez MD PATIENT NAME: Shimon Amato DATE: 04/20/2025 TIME: 9:42 AM 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): Surgeons and Role: * Helio Cortez MD - Primary No Additional Staff PRE-OPERATIVE DIAGNOSIS: Right shoulder full-thickness rotator cuff tear, full-thickness biceps tendon rupture POST-OPERATIVE DIAGNOSIS: Same SURGICAL PROCEDURE(S): Right shoulder arthroscopic rotator cuff repair, debridement biceps tendon rupture and superior labrum Anesthesia: General Implantable Devices: Arthrex 4.75 mm swivel lock anchor x 2, knotless fiber tack anchor x 2 Complications: None Specimens: None Estimated Blood Loss: 10 mls OPERATIVE INDICATIONS: Patient is a 74-year-old male with continued right shoulder pain despite conservative treatment. An MRI was obtained demonstrating a full-thickness tear of the rotator cuff and full-thickness biceps tendon rupture. Discussed the risk of the above procedure with the patient including bleeding, infection, stiffness, retear, damage to structures, anesthetic complications, the patient elected to proceed. OPERATIVE PROCEDURE: The patient was met in the preoperative holding area where preoperative huddle was performed. His right shoulder was marked and blocked. He was taken the operative room suite and transferred to the operative room table in the supine position. He was placed in the beachchair position. All bony prominences were well-padded. The right shoulder was prepped and draped in standard fashion. A preoperative timeout was performed. I began by performing a diagnostic arthroscopy through a standard posterior portal. The patient had no articular cartilage wear of his glenoid or humeral head. His subscapularis had a small partial-thickness tear. His biceps tendon was completely ruptured and the biceps tendon stump was partially torn. The supraspinatus tendon was completely torn visualized intra-articularly. At this time, I established an anterior portal under direct visualization with use of a spinal needle. I performed a debridement of the superior labrum and the biceps tendon stump. Final intra-articular images were obtained. Next, I entered the subacromial space with use of a blunt trocar. An accessory lateral portal was established under direct visualization with use of a spinal needle. I performed a bursectomy for better visualization. The patient did have a full-thickness tear of the anterior aspect of the supraspinatus tendon. There was a delaminated component. This time, decision was made to perform a double row repair. I first placed 2 knotless fiber tack anchors just off the articular surface medially. I used the repair stitch to repair the delaminated portion down to the medial aspect of the greater tuberosity. The knotless mechanism was used to shuttle the repair stitch and reduced the tendon down nicely. Next, I took the tape sutures from each knotless fiber tack anchor as well as luggage tag sutures and placed a total of 4 sutures in the supraspinatus and infraspinatus tear. The most anterior sutures from each anchor and the anterior luggage tag suture was taken into an anterior lateral row anchor. The same steps were repeated for the posterior lateral row anchor in the posterior sutures. Appropriate tension was placed on each suture and this reduced the tendon nicely down to the greater tuberosity footprint. Suture ends were cut and final images were obtained demonstrating a well reduced the rotator cuff over the greater tuberosity footprint. The camera was removed. Portal sites were closed with buried 3-0 Monocryl suture. Steri-Strips and a sterile dressing was applied. The patient was placed in a sling and awoken from anesthesia and transferred to recovery in stable condition I/primary surgeon/proceduralist performed the procedure with assistance. SIGNATURE: Helio Cortez MD DATE: April 20, 2025 TIME: 11:48 AM Normal [facility] CNPNon 04-16-2025 CNPN Telephone (AGPOB1) LMSHIMON BERNARD ([id number]) 1950 M Date Time Provider Department 04/16/25 HELIO CORTEZ AGPOB1 During your visit today, we recorded the following information about you: Mariely Orient Santana Witt 04/16/2025 4:10 PM Signed Just spoke to patient and advised him to arrive to our outpatient surgery center on SundayApril 20 by 7:30 am. He has address and [address] number. I reminded him not to eat or drink after midnight Sunday night or for 8 hours prior to surgery. Allergies As of Date: 04/16/2025 Noted Allergy Reaction LATEX 02/09/2011 2 - Rash Date Reviewed: 04/13/2025 Reviewed by: Sen López Tech - Fully Assessed Reason for Visit: Preparations For Surgery [898] Cmt: Arrival time confirmation Prescriptions as of 04/16/2025 - acetaminophen (TYLENOL EXTRA STRENGTH) 500 mg tablet Take 2 tablets by mouth every 8 hours as needed for pain. - aspirin, enteric coated (ASPIRIN, ENTERIC COATED) 81 mg EC tablet Take 81 mg by mouth once daily. - calcium carbonate/vitamin D3 (CALCIUM 500 + D ORAL) Take by mouth. - multivitamin tablet Take 1 tablet by mouth once daily. Problem List As Of Date 04/16/2025 Noted Resolved DISC DEGENERATION NOS [HZF4201] 12/18/2006 Pain in joint, pelvic region and thigh [M25.559]05/22/2011 Urinary incontinence [R32] 09/15/2015 Benign non-nodular prostatic hyperplasia with l*09/15/2015 Primary osteoarthritis of right hip [M16.11] 07/16/2018 Hip osteoarthritis [M16.9] 08/13/2018 Status post bilateral hip replacements [Z96.643]09/24/2018 Post-traumatic osteoarthritis, right wrist [M19*04/26/2020 MYLENE (obstructive sleep apnea) [G47.33] 04/26/2020 Hypertension, essential [I10] 08/03/2021 Osteoarthritis of left knee [M17.12] 02/22/2022 S/P total knee arthroplasty, left [Z96.652] 03/16/2022 Obesity, Class I, BMI 30-34.9 [E66.811] 03/16/2022 Status post left knee replacement [Z96.652] 04/05/2022 06/02/2022 Preop examination [Z01.818] 04/10/2025 Traumatic complete tear of right rotator cuff [*04/10/2025 Rupture of right proximal biceps tendon [S46.21*04/10/2025 H/O echocardiogram [Z92.89] 04/13/2025 Encounter Status:Closed by MARIELY CURTAIN FRAMER SANTANA WITT on 04/16/25 [facility] CNOVon 04-13-2025 CN Office Visit (AGHWN) SHIMON AMATO ([id number]) 1950 M Date Time Provider Department 04/13/25 2:15 PM SURESH SOTO [facility] During your visit today, we recorded the following information about you: Respiration Weight Height 18/minute 97.5 kg 1.803 m Suresh Soto MD 04/13/2025 2:05 PM Signed SPINE SURGERY ESTABLISHED PATIENT DATE OF SERVICE: 04/13/2025 Patient Name: Mr.Brian Marco Antonio Amato Date of : 1950 Current Age: [age] year old Sex: male Subjective Chief Complaint: History of Present Illness: Mr.Brian Marco Antonio Amato has a past medical history of hypertension, overactive bladder and sleep apnea. Patient was seen by Dr. Cortez on 03/24/2025 for a 6 year history of atraumatic right shoulder pain that had worsened. MRI demonstrated full-thickness tear of the supraspinatus tendon with some retraction. He complained of right sided neck pain that radiated to trapezius region as well as pain and weakness to right shoulder. He wished to proceed with right shoulder arthroscopic rotator cuff repair with possible biceps tenodesis scheduled for 04/20/2025. He was recommended to follow-up with myself for evaluation of his cervical spine prior to undergoing surgery. He was last seen in the office on 03/27/2025 and reported right sided neck pain that radiated to back of right shoulder for 3 years. He noted occasional paresthesia in the right middle and ring fingers. He had a history of multiple surgeries, including procedures on both wrists, with plates inserted in the right wrist, leading to decreased dexterity and worsening handwriting. He had transient balance issues that had resolved. Denied any falls. His symptoms were exacerbated with overhead activities. X-rays showed arthritic changes and slight vertebral misalignment, but no significant instability. I recommended patient to follow-up after obtaining MRI of cervical spine prior to undergoing his shoulder surgery, prompting visit today. Marco Antonio is a 74-year-old male presenting for evaluation of cervical spine MRI findings and clearance for upcoming shoulder surgery. Marco Antonio reports chronic shoulder pain, which is manageable but exacerbates with certain movements, necessitating occasional manual assistance for arm elevation. He is scheduled for shoulder surgery next week to address this issue. He also experiences neck pain but denies any significant difficulty with reaching or performing activities of daily living. Recent cervical spine MRI revealed spinal cord and nerve root narrowing. Marco Antonio denies experiencing pain, numbness, or tingling radiating to his hands. He has a history of carpal tunnel syndrome, which previously caused numbness while riding a bike, but he notes improvement in these symptoms and denies current tingling. He reports occasional dropping of objects, though he does not consider this a significant issue. He denies any balance issues, though he does report a recent episode of dizziness and balance problems approximately 1-2 months ago. He attributes occasional feelings of imbalance to his age. Major Risk Factors Obesity Moderate Risk BMI: 30.44 kg/m2 High: BMI > 40 Moderate: BMI 30-40 Normal: BMI < 30 Diabetes normal High: A1C > 8 Moderate: A1C 7-8 Normal: A1C < 7 Hx of DVT / PE normal High: dx of DVT / PE Normal: no dx of DVT / PE Smoking normal Last Status: Never High: Current smoker Normal: Non smoker Narcotics Use normal High:NarxCare >=300 Moderate: 100-299 Normal: 0-99 Depression Unknown Risk High: PHQ-9 >14 Moderate: PHQ-9 5-14 Normal: PHQ-9 < 5 Data from F Epic on prior therapies: PREVIOUS CONSERVATIVE TREATMENT: 1) Medication: Tylenol, Advil 2) Physical therapy: No recent participation for neck. Did PT in November for shoulder. 3) Pain Management: No recent participation 4) Injections: No recent injections PREVIOUS SPINE SURGERY: Denies Surgical Risk Factors: Anticoagulants/antipl atelets: ASA 81mg Objective PHYSICAL EXAM There were no vitals taken for this visit. 5/5 motor strength in BUE and BLE SILT throughout extremities No UMN signs Able to perform tandem gait Results: MRI of cervical spine WO contrast from 03/31/2025: IMPRESSION: Multilevel degenerative changes of cervical spine, most pronounced at C5-C6 with moderate spinal canal stenosis and indentation of the ventral cord and moderate bilateral neural foraminal narrowing. Anatomic Variant: None. Assume 7 cervical vertebrae with counting from the craniocervical junction. Assessment/Plan 1. Cervical spondylosis with myelopathy (M47.12) Cervical spine MRI reveals multiple levels of spinal cord compression and narrowing due to arthritis. Patient experiences occasional balance issues and mild dexterity problems, but no significant pain, numbness, or tingling in the hands. No severe narrowing around the spinal cord ob (more content not included)... Normal [facility] HISTORY PHYSICALon HISTORY PHYSICAL HNO ID: [id number] Author: HAKEEM AGUDELO APRN.C++ QUANT DEVELOPER Service: ? Author Type: Nurse Practitioner Type: H&P Filed: 04/13/2025 11:45 Note Text: [facility] HISTORY AND PHYSICAL EXAMINATION SERVICE DATE: 04/13/2025 SERVICE TIME: 11:44 AM PRIMARY CARE PHYSICIAN: Giovanni Mclean DO Assessment Patient has the following medical conditions which may affect gregoria-operative course: Preop examination See note for medical conditions which may affect gregoria-operative course addressed in visit today. Traumatic complete tear of right rotator cuff See HPI, surgery scheduled 04/20/25 Rupture of right proximal biceps tendon See HPI, surgery scheduled 04/20/25 MYLENE (obstructive sleep apnea) S/p uvulectomy, no CPAP H/O echocardiogram Previous finding of EF = 49 ? 5%, aorta dilation 4.0cm Patient denies any chest pain, SOB, METs >8 No previous h/o cardiac disease, taking ASA 81mg for prevention ECHO 08/08/21 CONCLUSIONS: - Exam indication: SOB - The left ventricle is normal in size. Left ventricular systolic function is mildly decreased. EF = 49 ? 5% (2D biplane) Normal left ventricular diastolic function. - The right ventricle is normal in size. Right ventricular systolic function is normal. - The right atrial cavity is dilated. - The visualized aorta is borderline dilated with a maximal dimension of 4.0 cm. - The patient has not had a prior CC echocardiographic exam for comparison. Hypertension, essential BP elevated today, patient denies chest pain, SOB, ESCALANTE, dizziness, syncope. Patient states BP has been somewhat elevated, no current medication. Monitoring with PCP ANESTHESIA FINDINGS: Intubation History: No history of difficult intubation. No abnormal airway history Significant Anesthesia Considerations: none Airway History: No history of difficult airway No abnormal airway history Galaviz Activity Status Index: METS: Do heavy work around the house, such as scrubbing floors, lifting or moving heavy furniture (8.00 METs) DASI Score: 8 Patient denies any chest pain or undue shortness of breath with the above physical activity. Clinical Frailty Scale: 2. Well ARISCAT Score: Age: 51-80 Preoperative SpO2: >=96% Respiratory infection in the last month: No Preoperative anemia: No Surgical incision: peripheral Duration of surgery: <2 hrs Emergency procedure: No ARISCAT Score: 3 I - PHYSICAL EVALUATION AIRWAY Patient intubated: No. DENTAL Dental findings: teeth intact. II - ANESTHESIA PLAN Anesthetic Plan: regional and general Beta Ann Monitoring Plan Post Procedure Analgesic Plan Prepared for Surgery: . Patient has no pending optimization. CONSULTS: Planned Anesthetic: regional and general The Following Tests/Procedures Have Been Initiated: No orders of the defined types were placed in this encounter. None ordered per surgeon. Pt denies blood thinners. ARISCAT risk index interpretation 0 to 25 points: Low risk: 1.6% pulmonary complication rate 26 to 44 points: Intermediate risk: 13.3% pulmonary complication rate 45 to 123 points: High risk: 42.1% pulmonary complication rate Assessment/Plan Traumatic complete tear of right rotator cuff, subsequent encounter [S46.011D] Rupture of right proximal biceps tendon, initial encounter [S46.211A] PLAN Diagnosis: Planned Procedure: Procedure(s) with comments: ARTHROSCOPY SHOULDER ROTATOR CUFF (rotator cuff repair right shoulder)--Right shoulder arthroscopic rotator cuff repair, possible biceps tenodesis (Right) - GENERAL + BLOCK ARTHROSCOPY SHOULDER BICEPS TENODESIS (possible biceps tenodesis) (Right) I spent a total of 40 minutes on the date of the service which included preparing to see the patient, [id number] patient care, completing clinical documentation, obtaining and/or reviewing separately obtained history, performing a medically appropriate examination, and counseling and educating the patient/family/caregi jessica. REASON FOR VISIT: Shimon Amato is a 74 year old male who is scheduled for Procedure(s) with comments: ARTHROSCOPY SHOULDER ROTATOR CUFF (rotator cuff repair right shoulder)--Right shoulder arthroscopic rotator cuff repair, possible biceps tenodesis (Right) - GENERAL + BLOCK ARTHROSCOPY SHOULDER BICEPS TENODESIS (possible biceps tenodesis) (Right) at the request of Dr. Helio Cortez for routine HANDP. My final recommendation will be communicated back to the requesting physician by way of shared medical record or letter. Subjective The patient has the following: COVID-19 Immunization Status Current Care Gaps Covid-19 Vaccine ( season) Overdue since 01/28/2025 07/31/2024 Imm Admin: COVID-19 vaccine, age 12+ yr (MODERNA) 08/24/2023 Imm Admin: COVID-19 vaccine, age 12+ yr, 2022- season (PFIZER-BIONTECH) 06/22/2022 Imm Admin: COVID-19 original vaccine, full dose, monovalent (MODE (more content not included)... Normal [facility] MRI CERVICAL SPINE WO IVCONo n 03-31-2025 MRI CERVICAL SPINE WO IVCON * * *Final Report* * * DATE OF EXAM: Mar 31 2025 12:30PM WRM [id number] - MRI CERVICAL SPINE WO IVCON / PROCEDURE REASON: Spinal stenosis of cervical region * * * * Physician Interpretation * * * * EXAMINATION: MRI CERVICAL SPINE WO IVCON CLINICAL HISTORY: Spinal stenosis of cervical region TECHNIQUE: Routine cervical spine MR protocol without gadolinium. MQ: [id number] COMPARISON: Cervical spine radiograph 03/24/2024.. RESULT: Counting reference: Craniocervical junction. Anatomic Variants: None. Localizer images: No significant findings. Alignment: There is grade 1 anterolisthesis of C2 on C3. There is mild anterolisthesis of C3 on C4. There is grade 1 anterolisthesis of C6 on C7. There is moderate to severe severe degenerative loss of intervertebral disc space height at C3-C4, severe at C4-C5, C5-C6 and C6-C7. Craniocervical junction: Craniocervical junction is normal. Cord: The visualized cord is within normal limits of signal intensity and morphology. Bone marrow signal/fracture: There are Modic-type 1 changes at endplates of C3-C4, C4-C5 and C5-C6. No evidence of pathologic marrow infiltration. No evidence of prior fracture. Cervical soft tissues: The paraspinal soft tissues are within normal limits. C2-C3: There is mild bilateral facet arthropathy and disc osteophyte complex resulting in partial effacement of ventral thecal sac without cord impingement, mild spinal canal stenosis and moderate bilateral neural foraminal narrowing. C3-C4: There is mild bilateral facet arthropathy and disc osteophyte complex resulting in effacement of ventral thecal sac and mild indentation of the right ventral cord, moderate bilateral neural foraminal narrowing greater on the right. C4-C5: There is mild bilateral facet arthropathy and disc osteophyte complex resulting in partial effacement of ventral thecal sac without cord impingement and mild to moderate bilateral neural foraminal narrowing greater on the right. C5-C6: There is moderate bilateral facet arthropathy and disc osteophyte resulting in partial effacement of ventral dorsal thecal sac, moderate spinal canal stenosis and indentation of the ventral cord and moderate bilateral neural foraminal narrowing. C6-C7: There is mild bilateral facet arthropathy and posterior disc uncovering resulting in partial effacement of ventral thecal sac and minimal bilateral neural foraminal narrowing. C7-T1: There is mild bilateral facet arthropathy and disc osteophyte complex sac and ligamentum flavum thickening resulting in partial effacement of ventral dorsal thecal sac without cord impingement and at least mild bilateral neural foraminal narrowing. IMPRESSION: Multilevel degenerative changes of cervical spine, most pronounced at C5-C6 with moderate spinal canal stenosis and indentation of the ventral cord and moderate bilateral neural foraminal narrowing. Anatomic Variant: None. Assume 7 cervical vertebrae with counting from the craniocervical junction. Umbrella Mender: PSCB Transcribe Date/Time: Mar 31 2025 1:08P Dictated by : JAKE MENG MD This examination was interpreted and the report reviewed and electronically signed by: JAKE MENG MD on Mar 31 2025 1:16PM EST [id number] Normal [facility] CNOVon 03-27-2025 CNOV Office Visit (AGOCMR ) SHIMON AMATO ([id number]) 1950 M Date Time Provider Department 03/27/25 10:45 AM SURESH SOTO AGOR During your visit today, we recorded the following information about you: Pulse Blood pressure Weight Height 78/minute 139/80 99 kg 1.803 m Suresh Soto MD 03/27/2025 11:05 AM Signed SPINE SURGERY NEW PATIENT Date of visit: March 27, 2025 Patient Name: Mr.Brian Marco Antonio Amato Date of : 1950 Current Age: [age] year old Sex: male PCP: Giovanni Mclean DO REFERRING PROVIDER: Helio Cortez [address] [id number] Subjective Chief Complaint: History of Present Illness: Mr.Brian Marco Antonio Amato has a past medical history of hypertension, overactive bladder and sleep apnea. Patient presents to the office today as a new patient with radiographic imaging for evaluation of cervical spine. The patient is referred by Dr. Helio Cortez for orthopedic spine evaluation. Patient was seen by Dr. Cortez on 03/24/2025 for a 6 year history of atraumatic right shoulder pain that had worsened. MRI demonstrated full-thickness tear of the supraspinatus tendon with some retraction. He complained of right sided neck pain that radiated to trapezius region as well as pain and weakness to right shoulder. He wished to proceed with right shoulder arthroscopic rotator cuff repair with possible biceps tenodesis scheduled for 04/20/2025. He was recommended to follow-up with myself for evaluation of his cervical spine prior to undergoing surgery, prompting visit today. Marco Antonio is a 74-year-old male presenting for evaluation of neck pain prior to a scheduled right rotator cuff repair on April 20. Marco Antonio reports right-sided neck pain radiating to the shoulder, persisting for 3 years. The pain is described as hard and occasionally radiates from the back of the shoulder to the neck. He denies paresthesia or hypoesthesia in the neck, but experiences occasional paresthesia in the right middle and ring fingers. He has a history of multiple surgeries, including procedures on both wrists, with plates inserted in the right wrist, leading to decreased dexterity and worsening handwriting. He attributes these issues to the wrist surgery rather than the neck pain. He denies significant difficulties with hand function. A few weeks ago, Marco Antonio experienced transient balance issues, which have since resolved. He denies any falls. The most bothersome symptom is the pain in the right shoulder, which is exacerbated by overhead activities and may coincide with neck pain. He has been managing the pain with Tylenol and Advil and underwent physical therapy for the shoulder in November. He denies a history of spine surgery. Questionnaire Generated HPI Possible Spine-Related Symptoms: Pain;Numbness/tinglin g;Difficulty with hand coordination/fine motor movements Symptom Onset:1 to 5 years Symptom Location(s): Neck;Arm(s) Symptom Laterality: Right-sided Aggravating Factors: None of the above Alleviating Factors: Medications Non-Surgical Therapies Tried: NSAIDS Prior Spine Surgery(s): They report no history of prior spine surgery. Image annotated by patient with symptom distribution: Suresh Santo MD , have reviewed the above patient-reported information and have reviewed it with the patient. Major Risk Factors Notable surgical risk factors: Smoking status: Never BMI:30.44 kg/m2. Patient's BMI would meet criteria for obesity given BMI >= 30 Current Anticoagulation/Antip latelet Use: Aspirin Obesity Moderate Risk BMI: 30.44 kg/m2 High: BMI > 40 Moderate: BMI 30-40 Normal: BMI < 30 Diabetes normal High: A1C > 8 Moderate: A1C 7-8 Normal: A1C < 7 Hx of DVT / PE normal High: dx of DVT / PE Normal: no dx of DVT / PE Smoking normal Last Status: Never High: Current smoker Normal: Non smoker Narcotics Use normal High:NarxCare >=300 Moderate: 100-299 Normal: 0-99 Depression Unknown Risk High: PHQ-9 >14 Moderate: PHQ-9 5-14 Normal: PHQ-9 < 5 Data from [facility] Epic on prior therapies: PREVIOUS CONSERVATIVE TREATMENT: 1) Medication: Tylenol, Advil 2) Physical therapy: No recent participation for neck. Did PT in November for shoulder. 3) Pain Management: No recent participation 4) Injections: No recent injections PREVIOUS SPINE SURGERY: Denies Surgical Risk Factors: Anticoagulants/antipl atelets: ASA 81mg Objective PHYSICAL EXAM BP 139/80 (BP Site: Left Arm, BP Position: Sitting, BP Cuff Size: Large Adult) Pulse 78 Ht 5' 11 (1.803 m) Wt 218 lb 4.1 oz (99 kg) SpO2 96% BMI 30.44 kg/m? 5/5 motor strength in BUE and BLE SILT throughout extremities No UMN signs Able to perform tandem gait Results: XR of cervical spine from 03/24/2025: 4 view cervical spine ordered, obtained, reviewed in office today demonstrating multilevel degenerative disc disease includi (more content not included)... Normal [facility] SHIMON AMATO ([id number]) 1950 M Date Time Provider Department 03/25/25 [facility] During your visit today, we recorded the following information about you: Sarah Kat 03/25/2025 8:35 AM Signed Attempted to contact patient to schedule appointment with Dr Soto at request of Dr Cortez. Per Dr Soto, ok to double book on Sunday, 03/27. Left message with office call back information and my extension. Allergies As of Date: 03/25/2025 Noted Allergy Reaction LATEX 02/09/2011 2 - Rash Date Reviewed: 03/24/2025 Reviewed by: Helio Cortez MD - Fully Assessed Reason for Visit: Appointment [186] Prescriptions as of 03/25/2025 - acetaminophen (TYLENOL EXTRA STRENGTH) 500 mg tablet Take 2 tablets by mouth every 8 hours as needed for pain. - docusate sodium (COLACE) 100 mg capsule Take 1 capsule by mouth twice daily. - aspirin, enteric coated (ECOTRIN LOW STRENGTH) 81 mg EC tablet Take 1 tablet by mouth twice daily for 28 days. - aspirin, enteric coated (ASPIRIN, ENTERIC COATED) 81 mg EC tablet Take 81 mg by mouth once daily. - calcium carbonate/vitamin D3 (CALCIUM 500 + D ORAL) Take by mouth. - multivitamin tablet Take 1 tablet by mouth once daily. Problem List As Of Date 03/25/2025 Noted Resolved DISC DEGENERATION NOS [PRT8055] 12/18/2006 Pain in joint, pelvic region and thigh [M25.559]05/22/2011 Urinary incontinence [R32] 09/15/2015 Benign non-nodular prostatic hyperplasia with l*09/15/2015 Primary osteoarthritis of right hip [M16.11] 07/16/2018 Hip osteoarthritis [M16.9] 08/13/2018 Status post bilateral hip replacements [Z96.643]09/24/2018 Post-traumatic osteoarthritis, right wrist [M19*04/26/2020 MYLENE (obstructive sleep apnea) [G47.33] 04/26/2020 Hypertension, essential [I10] 08/03/2021 Osteoarthritis of left knee [M17.12] 02/22/2022 S/P total knee arthroplasty, left [Z96.652] 03/16/2022 Obesity, Class I, BMI 30-34.9 [E66.811] 03/16/2022 Status post left knee replacement [Z96.652] 04/05/2022 06/02/2022 Encounter Status:Closed by SARAH KAT on 03/25/25 [facility] CNOVon 03-24-2025 CN Office Visit (AGHWG1 ) SHIMON AMATO ([id number]) 1950 M Date Time Provider Department 03/24/25 1:15 PM HELIO CORTEZ AGHWG1 During your visit today, we recorded the following information about you: Respiration Weight Height 18/minute 98 kg 1.803 m Helio Cortez MD 03/24/2025 3:56 PM Signed Helio Cortez MD Orthopedic Sports Medicine Surgery [address] [place] [address] [place] [address] NAME: Shimon Amato : 1950 DATE: 03/24/2025 Reason for Visit/Chief Complaint: Right shoulder pain History of present illness: Marco Antonio is a 74 year old male who presents for follow up evaluation of 6-year history of atraumatic right shoulder pain which has worsened recently. At the patient's last visit, we did review her MRI findings demonstrating a full-thickness tear of the supraspinatus tendon with some retraction. At that time, he elected to proceed with conservative treatment. He continues to have pain and weakness in his right shoulder and presents to discuss surgical intervention. He also has right-sided neck pain which radiates into his trapezius region. I have reviewed and updated the patient's past medical history, past surgical history, social history, and family history. This is located both in the patient's note and their intake form that has been scanned into the medical record for today's visit. 14 point review of systems was reviewed per signed intake sheet and is otherwise negative except as noted above. Objective: Constitutional: Well developed, well nourished, no acute distress HEENT: mucous membranes moist, normocephalic atraumatic Psychologic: appropriate mood and affect Chest: bilateral chest elevations, symmetric Cardiovascular: pink extremities, peripheral perfusion intact Respiratory: no respiratory distress, nonlabored on room air Abdomen: soft, nontender Neurologic: orientation to person, place and time Right SHOULDER EXAM There is right sided cervical tenderness and positive Spurling's. No obvious atrophy or deformity. No scapular dyskinesia. Patient has tenderness about the anterolateral shoulder. Active elevation is 170?, external rotation at the side 60?, internal rotation to T10. There is full passive range of motion. There is pain with elevation and resisted strength testing. There is pain with resisted external rotation. There is moderate weakness to supraspinatus testing, mild weakness to external rotation. Lift-off test is normal. The patient has a painful arc of abduction and positive impingement signs. There is a negative speed's test and negative Yergason's test. There is no significant pain with cross-arm adduction. No signs of instability or apprehension. Distal neurovascular exam is normal. The patient has a warm and well-perfused upper extremity with capillary refill less than 2 seconds. Sensation is intact to light touch in terminal nerve distributions. The patient has no palpable epitrochlear lymphadenopathy. Imaging: X-Rays: 3 views right shoulder personally reviewed demonstrating no acute abnormalities. Well-maintained glenohumeral joint space with no superior migration of the humeral head. MRI right shoulder personally reviewed and reviewed with patient demonstrating a full-thickness tear of the anterior supraspinatus tendon with chronic edges of the tear. There is no significant muscular atrophy. 4 view cervical spine ordered, obtained, reviewed in office today demonstrating multilevel degenerative disc disease including significant joint space narrowing at C4-5 and spondylolisthesis at C6-7 Assessment/Plan 74-year-old male with acute on chronic right shoulder pain, with full-thickness atraumatic right rotator cuff tear -I discussed treatment options with the patient. He continues to have pain despite physical therapy. He has a full-thickness rotator cuff tear with retraction to the mid humeral head. I discussed the risks of right shoulder arthroscopic rotator cuff repair with possible biceps tenodesis including bleeding, infection, retear, stiffness, anesthetic complications, the patient elected to proceed. His consent was obtained in office today. We will plan on surgery at his earliest convenience. I also will refer him to Dr. Soto for further evaluation of his cervical spine prior to surgery. All questions were answered at today's visit Will continue to monitor patient for Radiculopathy, cervical (primary encounter diagnosis) Traumatic complete tear of right rotator cuff, subsequent encounter Rupture of right proximal biceps tendon, initial encounter, patient to schedule visit as per follow up discussed. We have made the decision to move forward with a major orthopaedic surgery today, and this represents (more content not included)... Normal [facility] XR CERV OTHER 4V AP/LAT/FLX/ EXTon 03-24-2025 4 view cervical spin e ordered, obtained, reviewed in office today demonstrating multilevel degenerative disc disease including significant joint space narrowing at C4-5 and spondylolisthesis at C6-[address] [facility] Radiology Study observation (narrative) [facility] Christen 03-12-2025 CNPN Telephone (AGPOB1) SHIMON AMATO ([id number]) 1950 M Date Time Provider Department 03/12/25 HELIO CORTEZ POB1 During your visit today, we recorded the following information about you: Mariely Orient GrazynaSantana 03/12/2025 2:46 PM Signed I got a message this morning from Dr. Cortez that Chris Mclean' neighbor wants to see Dr. Cortez again for his shoulder. I just called, but had to leave a message as no one answered. I left my direct number and the appt line number to call back to schedule. Allergies As of Date: 03/12/2025 Noted Allergy Reaction LATEX 02/09/2011 2 - Rash Date Reviewed: 2024 Reviewed by: Helio Cortez MD - Fully Assessed Reason for Visit: Appointment [186] Prescriptions as of 03/12/2025 - acetaminophen (TYLENOL EXTRA STRENGTH) 500 mg tablet Take 2 tablets by mouth every 8 hours as needed for pain. - docusate sodium (COLACE) 100 mg capsule Take 1 capsule by mouth twice daily. - aspirin, enteric coated (ECOTRIN LOW STRENGTH) 81 mg EC tablet Take 1 tablet by mouth twice daily for 28 days. - Cholecalciferol, Vitamin D3, (VITAMIN D) 25 mcg (1,000 unit) cap Take 1,000 Units by mouth once daily. - aspirin, enteric coated (ASPIRIN, ENTERIC COATED) 81 mg EC tablet Take 81 mg by mouth once daily. - calcium carbonate/vitamin D3 (CALCIUM 500 + D ORAL) Take by mouth. - multivitamin tablet Take 1 tablet by mouth once daily. Problem List As Of Date 03/12/2025 Noted Resolved DISC DEGENERATION NOS [[id number]] 12/18/2006 Pain in joint, pelvic region and thigh [M25.559]05/22/2011 Urinary incontinence [R32] 09/15/2015 Benign non-nodular prostatic hyperplasia with l*09/15/2015 Primary osteoarthritis of right hip [M16.11] 07/16/2018 Hip osteoarthritis [M16.9] 08/13/2018 Status post bilateral hip replacements [Z96.643]09/24/2018 Post-traumatic osteoarthritis, right wrist [M19*04/26/2020 MYLENE (obstructive sleep apnea) [G47.33] 04/26/2020 Hypertension, essential [I10] 08/03/2021 Osteoarthritis of left knee [M17.12] 02/22/2022 S/P total knee arthroplasty, left [Z96.652] 03/16/2022 Obesity, Class I, BMI 30-34.9 [E66.811] 03/16/2022 Status post left knee replacement [Z96.652] 04/05/2022 06/02/2022 Encounter Status:Closed by MARIELY CURTAIN FRAMER SANTANA WITT on 03/12/25 [facility] Ree 2024 CNOV Office Visit (AGHWG1 ) BAXSTROM,SHIMON MARCO ANTONIO ([id number]) 1950 M Date Time Provider Department 12/23/24 1:15 PM HELIO CORTEZ AGHWG1 During your visit today, we recorded the following information about you: Respiration Weight Height 16/minute 97.5 kg 1.803 m Helio Cortez MD 2024 3:27 PM Signed Helio Cortez MD Orthopedic Sports Medicine Surgery [address] [place] [address] [address], [facility] [address] [facility] [place] [address] [address] , [facility] [address], [place] [address] NAME: Shimon Amato : 1950 DATE: 2024 Reason for Visit/Chief Complaint: Right shoulder pain History of present illness: Marco Antonio is a 74 year old male who presents for follow up evaluation of 6-year history of atraumatic right shoulder pain which has worsened recently. The patient had failed conservative treatment and therefore at his last visit, I ordered an MRI. He is here for follow-up. He continues to have pain that is about 2 out of 10 on a daily basis. He states the worst the pain gets is 5 out of 10. He has trouble sleeping on his right side occasionally and has difficulty with overhead activities. 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 I have reviewed and updated the patient's past medical history, past surgical history, social history, and family history. This is located both in the patient's note and their intake form that has been scanned into the medical record for today's visit. 14 point review of systems was reviewed per signed intake sheet and is otherwise negative except as noted above. Objective: Constitutional: Well developed, well nourished, no acute distress HEENT: mucous membranes moist, normocephalic atraumatic Psychologic: appropriate mood and affect Chest: bilateral chest elevations, symmetric Cardiovascular: pink extremities, peripheral perfusion intact Respiratory: no respiratory distress, nonlabored on room air Abdomen: soft, nontender Neurologic: orientation to person, place and time Right SHOULDER EXAM There is no cervical tenderness and negative Spurling's. No obvious atrophy or deformity. No scapular dyskinesia. Patient has tenderness about the anterolateral shoulder. Active elevation is 170?, external rotation at the side 60?, internal rotation to T10. There is full passive range of motion. There is pain with elevation and resisted strength testing. There is pain with resisted external rotation. There is moderate weakness to supraspinatus testing, mild weakness to external rotation. Lift-off test is normal. The patient has a painful arc of abduction and positive impingement signs. There is a negative speed's test and negative Yergason's test. There is no significant pain with cross-arm adduction. No signs of instability or apprehension. Distal neurovascular exam is normal. The patient has a warm and well-perfused upper extremity with capillary refill less than 2 seconds. Sensation is intact to light touch in terminal nerve distributions. The patient has no palpable epitrochlear lymphadenopathy. Imaging: X-Rays: 3 views right shoulder personally reviewed demonstrating no acute abnormalities. Well-maintained glenohumeral joint space with no superior migration of the humeral head. MRI right shoulder personally reviewed and reviewed with patient demonstrating a full-thickness tear of the anterior supraspinatus tendon with chronic edges of the tear. There is no significant muscular atrophy. Assessment/Plan 74-year-old male with acute on chronic right shoulder pain, with full-thickness atraumatic right rotator cuff tear -I discussed treatment options with the patient. I did discuss surgical and nonsurgical options. Did discuss a rotator cuff repair at length with the patient. I also discussed options such as a subacromial injection. After discussing all options with the patient, he elected to proceed with conservative treatment. He will continue to focus on rotator cuff strengthening exercises. I did explain that he could return to my office at any time to get a subacromial injection. I am happy to see him in the future if he would like to talk about surgical intervention. All questions were answered at today's visit. Helio Cortez MD 2024 3:27 PM Allergies As of Date: 2024 Noted Allergy Reaction LATEX 02/09/2011 2 - Rash Date Reviewed: 2024 Reviewed by: Helio Cortez MD - Fully Assessed Reason for Visit: Established Patient [175] Follow Up [171] Pain [78] Results - Mri [3561] Primary Visit Diagnosis:Nontraumati c tear of right rotator cuff, unspecified tear extent [M75.101] Other Visit Diagnosis:Rupture of right proximal biceps tendon, initial encounter [S46.211A] Prescriptions as of 2024 - acetaminophen (TYLENOL EXTRA STRENGTH) 500 mg tablet Take 2 tablets by (more content not included)... Normal [facility] MR Shoulder - right WO contr anny 12-17-2024 IMPRESSION: Rotator cuff tendinosis with full-thickness tear and retraction of the anterior supraspinatus tendon. No associated muscle atrophy. 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 Umbrella Mender: [facility] Transcribe Date/Time: Dec 17 2024 11:08A Dictated by : ARUN TRINH MD This examination was interpreted and the report reviewed and electronically signed by: ARUN TRINH MD on Dec 17 2024 11:29AM [facility] DIVISION OF RADIOLOGY * * *Final Report* * * DATE OF EXAM: Dec 17 2024 9:40AM [facility] 0240 - MRI SHOULDER WO IVCON RT / PROCEDURE REASON: multiple diagnoses * * * * Physician Interpretation * * * * EXAMINATION: MRI SHOULDER WO IVCON RT HISTORY: Chronic shoulder pain TECHNIQUE: Routine non-contrast MRI of the shoulder. MQ: MRS_1A COMPARISON: 04/11/2024 radiograph's RESULT: TENDONS: Rotator cuff tendons: -Supraspinatus: Full thickness tear involving the anterior two thirds of the tendon measuring about 1.5 cm in AP dimension (4:24). There is associated retraction to the level of the humeral head. Few bursal sided fibers appear to remain intact posteriorly. -Infraspinatus: Intact with severe tendinosis and fraying -Subscapularis: Intact with mild tendinosis -Teres Minor: Intact tendon Biceps (Long head) Tendon: Severely diminutive in appearance likely related to chronic high-grade partial thickness tear with retraction. MUSCLES: Rotator cuff muscles: -Supraspinatus: Preserved bulk and no fatty changes. -Infraspinatus: Preserved bulk and no fatty changes. -Subscapularis: Preserved bulk and no fatty changes. -Teres Minor: Preserved bulk and no fatty changes. Other muscles: Preserved signal and bulk in the deltoid. JOINTS: Glenohumeral Joint: -Labrum: Degeneration and tearing in the superior and posterior labrum -Cartilage: Mild cartilage loss/fissuring -Joint Fluid: Small effusion . No synovitis. Moderate fluid distention of the subcoracoid bursa. Acromioclavicular Joint: Mild hypertrophic degenerative changes BONES AND MARROW: No evidence of fracture or suspicious bone marrow replacing process . Reactive subcortical cystic changes at the greater tuberosity. OTHER: Subdeltoid/Subacromia l Bursa: Mild to moderate bursal distention relating to rotator cuff tearing Other: No other significant findings. Localizer images: No additional findings. DIVISION OF RADIOLOGY Provider, [facility] - 12/17/2024 * * *Final Report* * * DATE OF EXAM: Dec 17 2024 9:40AM [facility] 0240 - MRI SHOULDER WO IVCON RT / PROCEDURE REASON: multiple diagnoses * * * * Physician Interpretation * * * * EXAMINATION: MRI SHOULDER WO IVCON RT HISTORY: Chronic shoulder pain TECHNIQUE: Routine non-contrast MRI of the shoulder. MQ: MRS_1A COMPARISON: 04/11/2024 radiograph's RESULT: TENDONS: Rotator cuff tendons: -Supraspinatus: Full thickness tear involving the anterior two thirds of the tendon measuring about 1.5 cm in AP dimension (4:24). There is associated retraction to the level of the humeral head. Few bursal sided fibers appear to remain intact posteriorly. -Infraspinatus: Intact with severe tendinosis and fraying -Subscapularis: Intact with mild tendinosis -Teres Minor: Intact tendon Biceps (Long head) Tendon: Severely diminutive in appearance likely related to chronic high-grade partial thickness tear with retraction. MUSCLES: Rotator cuff muscles: -Supraspinatus: Preserved bulk and no fatty changes. -Infraspinatus: Preserved bulk and no fatty changes. -Subscapularis: Preserved bulk and no fatty changes. -Teres Minor: Preserved bulk and no fatty changes. Other muscles: Preserved signal and bulk in the deltoid. JOINTS: Glenohumeral Joint: -Labrum: Degeneration and tearing in the superior and posterior labrum -Cartilage: Mild cartilage loss/fissuring -Joint Fluid: Small effusion . No synovitis. Moderate fluid distention of the subcoracoid bursa. Acromioclavicular Joint: Mild hypertrophic degenerative changes BONES AND MARROW: No evidence of fracture or suspicious bone marrow replacing process . Reactive subcortical cystic changes at the greater tuberosity. OTHER: Subdeltoid/Subacromia l Bursa: Mild to moderate bursal distention relating to rotator cuff tearing Other: No other significant findings. Localizer images: No additional findings. IMPRESSION IMPRESSION: Rotator cuff tendinosis with full-thickness tear and retraction of the anterior supraspinatus tendon. No associated muscle atrophy. 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 Umbrella Mender: [facility] Transcribe Date/Time: Dec 17 2024 11:08A Dictated by : ARUN TRINH MD This examination was interpreted and the report reviewed and electronically signed by: ARUN TRINH MD on Dec 17 2024 11:29AM EST [facility] Radiology Study observation (narrative) [facility] MR Shoulder - right WO contr astOrdered By: [facility] Provider on 12-17-2024 [facility] MRI SHOULDER WO IVCON RTon 0 12-17-2024 MRI SHOULDER WO IVCON RT * * *Final Report* * * DATE OF EXAM: Dec 17 2024 9:40AM [facility] 0240 - MRI SHOULDER WO IVCON RT / PROCEDURE REASON: multiple diagnoses * * * * Physician Interpretation * * * * EXAMINATION: MRI SHOULDER WO IVCON RT HISTORY: Chronic shoulder pain TECHNIQUE: Routine non-contrast MRI of the shoulder. MQ: MRS_1A COMPARISON: 04/11/2024 radiograph's RESULT: TENDONS: Rotator cuff tendons: -Supraspinatus: Full thickness tear involving the anterior two thirds of the tendon measuring about 1.5 cm in AP dimension (4:24). There is associated retraction to the level of the humeral head. Few bursal sided fibers appear to remain intact posteriorly. -Infraspinatus: Intact with severe tendinosis and fraying -Subscapularis: Intact with mild tendinosis -Teres Minor: Intact tendon Biceps (Long head) Tendon: Severely diminutive in appearance likely related to chronic high-grade partial thickness tear with retraction. MUSCLES: Rotator cuff muscles: -Supraspinatus: Preserved bulk and no fatty changes. -Infraspinatus: Preserved bulk and no fatty changes. -Subscapularis: Preserved bulk and no fatty changes. -Teres Minor: Preserved bulk and no fatty changes. Other muscles: Preserved signal and bulk in the deltoid. JOINTS: Glenohumeral Joint: -Labrum: Degeneration and tearing in the superior and posterior labrum -Cartilage: Mild cartilage loss/fissuring -Joint Fluid: Small effusion . No synovitis. Moderate fluid distention of the subcoracoid bursa. Acromioclavicular Joint: Mild hypertrophic degenerative changes BONES AND MARROW: No evidence of fracture or suspicious bone marrow replacing process . Reactive subcortical cystic changes at the greater tuberosity. OTHER: Subdeltoid/Subacromia l Bursa: Mild to moderate bursal distention relating to rotator cuff tearing Other: No other significant findings. Localizer images: No additional findings. IMPRESSION: Rotator cuff tendinosis with full-thickness tear and retraction of the anterior supraspinatus tendon. No associated muscle atrophy. 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 Umbrella Mender: [facility] Transcribe Date/Time: Dec 17 2024 11:08A Dictated by : ARUN TRINH MD This examination was interpreted and the report reviewed and electronically signed by: ARUN TRINH MD on Dec 17 2024 11:29AM EST [id number] Normal [facility] CNOVon 12-16-2024 CNOV Office Visit (AGHWG1 ) SHIMON AMATO ([id number]) 1950 M Date Time Provider Department 12/16/24 1:15 PM HELIO CORTEZ AGHWG1 During your visit today, we recorded the following information about you: Respiration Weight Height 18/minute 97.5 kg 1.803 m Helio Cortez MD 12/16/2024 2:02 PM Signed Helio Cortez MD Orthopedic Sports Medicine Surgery [address] [place], [place] [id number] [place], [place] [address], [place] [address], [place] [address] NAME: Shimon Amato : 1950 DATE: 12/16/2024 Reason for Visit/Chief Complaint: Right shoulder pain History of present illness: Marco Antonio is a 73 year old male who presents for follow up evaluation of 6-year history of atraumatic right shoulder pain which has worsened recently. At the patient's last visit, I sent him to formal physical therapy. He just completed a course of physical therapy and states that his pain has slowly been improving. He still notices weakness with certain motions of his right shoulder and still has daily pain. Most of his pain is over his lateral shoulder as well as over the scapula. He has undergone a corticosteroid injection with minimal relief. I have reviewed and updated the patient's past medical history, past surgical history, social history, and family history. This is located both in the patient's note and their intake form that has been scanned into the medical record for today's visit. 14 point review of systems was reviewed per signed intake sheet and is otherwise negative except as noted above. Objective: Constitutional: Well developed, well nourished, no acute distress HEENT: mucous membranes moist, normocephalic atraumatic Psychologic: appropriate mood and affect Chest: bilateral chest elevations, symmetric Cardiovascular: pink extremities, peripheral perfusion intact Respiratory: no respiratory distress, nonlabored on room air Abdomen: soft, nontender Neurologic: orientation to person, place and time Right SHOULDER EXAM There is no cervical tenderness and negative Spurling's. No obvious atrophy or deformity. No scapular dyskinesia. Patient has tenderness about the anterolateral shoulder. Active elevation is 170?, external rotation at the side 60?, internal rotation to T10. There is full passive range of motion. There is pain with elevation and resisted strength testing. There is pain with resisted external rotation. There is moderate weakness to supraspinatus testing, mild weakness to external rotation. Lift-off test is normal. The patient has a painful arc of abduction and positive impingement signs. There is a negative speed's test and negative Yergason's test. There is no significant pain with cross-arm adduction. No signs of instability or apprehension. Distal neurovascular exam is normal. The patient has a warm and well-perfused upper extremity with capillary refill less than 2 seconds. Sensation is intact to light touch in terminal nerve distributions. The patient has no palpable epitrochlear lymphadenopathy. Imaging: X-Rays: 3 views right shoulder personally reviewed demonstrating no acute abnormalities. Well-maintained glenohumeral joint space with no superior migration of the humeral head. Assessment/Plan 73-year-old male with right shoulder pain concerning for atraumatic complete rotator cuff tear -I discussed treatment options with the patient. He continues to have pain and weakness despite physical therapy and has physical exam findings concerning for a rotator cuff tear. At this time, I will order an MRI of his right shoulder. He will follow-up after the MRI to update the treatment plan. All questions were answered at today's visit. Will continue to monitor patient for Nontraumatic tear of right rotator cuff, unspecified tear extent (primary encounter diagnosis) Rupture of right proximal biceps tendon, initial encounter, patient to schedule visit as per follow up discussed. Helio Cortez MD 12/16/2024 2:01 PM Allergies As of Date: 12/16/2024 Noted Allergy Reaction LATEX 02/09/2011 2 - Rash Date Reviewed: 12/16/2024 Reviewed by: Helio Cortez MD - Fully Assessed Reason for Visit: Established Patient [175] Pain [78] Primary Visit Diagnosis:Nontraumati c tear of right rotator cuff, unspecified tear extent [M75.101] Other Visit Diagnosis:Rupture of right proximal biceps tendon, initial encounter [S46.211A] Order(s):MRI SHOULDER WO IVCON RIGHT [[id number]] Order #: [id number] FUTURE Prescriptions as of 12/16/2024 - acetaminophen (TYLENOL EXTRA STRENGTH) 500 mg tablet Take 2 tablets by mouth every 8 hours as needed for pain. - docusate sodium (COLACE) 100 mg capsule Take 1 capsule by mouth twice daily. - aspirin, enteric coated (ECOTRIN LOW STRENGTH) 81 mg EC tablet Take 1 tablet by mouth twice daily f (more content not included)... Normal [facility] PT D/C Summary (1)on 025 PT D/C Summary (1) [facility] [address] [place] [address]. [address] [place] [address] / REHABILITATION SERVICES DISCHARGE SUMMARY MR#: [id number] Acct: [id number] Name: SHIMON AMATO Rep #: [id number] : 1950 73 From: Rosalinda Kinsey PT, Cert. MDT Referring Dr.: OUT OF [facility] DOCTOR Status: REG R CR Insurance: MEDICARE PART A B ANTHEM Discharge Summary D/C summary: It has been my pleasure to treat SHIMON AMATO referred by HELIO CORTEZ, with the diagnosis of NONTRAUMATIC TEAR OF R ROTATOR CUFF, UNSPECIFIED TEAR EXTENT for a total of 13 visit(s). Discharge Date: 12/15/24 Please see the following information for a summary of their discharge status. Subjective Subjective: I THINK WE'RE AT A PLEATEAU. PATIENT REPORTS HE IS GOING TO KEEP WORKING OUT AND HE HAS PHYSICIAN FOLLOW UP TOMORROW. Pain R shoulder: Pain Intensity (Out of 10): 2 Overall Improvement % Improvement: 40 Objective Objective/Function: PATIENT WAS SEEN TODAY FOR RE-ASSESSMENT OF PROGRESS TOWARD THE SET PT GOALS AND THE NEED FOR FURTHER PHYSICAL THERAPY VS READINESS FOR DISCHARGE. PATIENT REPORTS HE HAS ENJOYED THE THERAPY BUT AT THIS POINT PATIENT'S SYMPTOMS ARE PLATEAUING AND HE IS APPROPRIATE FOR DISCHARGE TO PHYSICIAN FOLLOW UP. HE IS AGREEABLE. HE HAS PHYSICIAN RE-CHECK SCHEDULED TOMORROW. HE APPEARS TO BE A GOOD CANDIDATE FOR MRI. R SHLD ABD IS STILL SIGNIFICANTLY WEAK WELL OVER-HEAD REACH. UPON EXAM TODAY: R SHLD ACTIVE ELEVATION TO 155 DEG AND ABD TO 133 DEG (FULL SCAPTION AROM THOUGH). STRENGTH: SHLD FLEX: R 22.0, L 39.0 LBS SHLD ABD: R 17.5, L 34.6 LBS SHLD IR: R 24.4, L 25.8 LBS SHLD ER: R 18.8, L 25.3 LBS ELBOW FLEX: R 41.7, L 43.4 LBS ELBOW EXT: R 30.7, L 31.6 LBS. Goals Goal 1:: DECREASE C/O R SHLD PAIN BY AT LEAST 50% WITH WORK AND ADL FUNCTION Goal Progress: Not cont. to progress Goal 2:: INCREASE R SHLD AROM TO SYMMETRICAL TO L. Goal Progress: Not cont. to progress Goal 3:: INCREASE R SHLD STRENGTH TO SYMMETRICAL TO L Goal Progress: Not Met Goal 4:: IMPROVE QUICK DASH SCORE BY AT LEAST 5 POINTS. Goal Progress: Not Met Goal 5:: INDEP GYM EX PROGRAM THAT DOES NOT CAUSE INCREASED R SHLD PAIN Goal Progress: Goal Met Plan Plan: D/C TO INDEP EX AND PHYSICIAN FOLLOW UP. PATIENT AGREEABLE. D/C Information d/c sentence: If there are questions or concerns regarding this patient's physical therapy, please feel free to call me at [phone]. Thank you for the referral of this patient. Sincerely, Rosalinda Kinsey, PT, Cert MDT Balance/Gait/Function al tests Balance/Special Test Scores Quick DASH Score: 25.0000 Improvement % Improvement: 40 12/15/24 1055 CC: No Primary Care Physician; HELIO CORTEZ PIO Signed Normal [facility] Re-Evaluation - PT (1)on Re-Evaluation - PT (1) [facility] [address] [place] [address] [address] [place] [address] / REEVALUATION / MEDICARE RECERTIFICATION PHYSICAL THERAPY MR#: [id number] Acct: [id number] Name: SHIMON AMATO Rep #: [id number] : 1950 73 From: Rosalinda Kinsey PT, Cert. MDT Referring Dr.: OUT OF TOWN DOCTOR Status:REG RCR Insurance: MEDICARE PART A B ANTHEM Re-Evaluation Intro: HELIO CORTEZ, It has been my pleasure to treat SHIMON AMATO over the last 8 visits for NONTRAUMATIC TEAR OF R ROTATOR CUFF, UNSPECIFIED TEAR EXTENT. Please see the progress note below for an update on the physical therapy plan of care! Subjective Subjective: PATIENT REPORTS ABOUT 20% IMPROVEMENT IN HIS R SHLD PAIN AND ABOUT 10% IMPROVEMENT IN HIS STRENGTH SINCE STARTING PHYSICAL THERAPY. HE REPORTS HE ENJOYS THE THERAPY AND WOULD LIKE TO CONTINUE UNTIL HE SEES THE DOCTOR AGAIN. HE REPORTS DIFFICULTY REACHING UP TO USE THE NAIL GUN, SWINGING THE SLEDGE HAMMER, TAKING THE LADDER TO THE BASEMENT AND PUTTING IT UP TO STORE IT. HE STATES HE BOUGHT THE LIGHTEST NAIL GUN AND LADDER HE COULD AND IT IS STILL DIFFICULT TO USE AND MOVE THEM. HE ALSO REPORTS CONSTANT R SHLD PAIN 2-05/21 AND STATES HE DOESN'T WANT TO KEEP DEALING WITH THE 710 PAIN BUT HE DOESN'T REALLY WANT TO HAVE SURGERY EITHER. Objective Objective/Function: PATIENT WAS SEEN TODAY FOR RE-ASSESSMENT OF PROGRESS TOWARD THE SET PT GOALS AND THE NEED FOR FURTHER PHYSICAL THERAPY VS READINESS FOR DISCHARGE. THIS PATIENT IS PROGRESSING SLOWLY WITH PROGRESSIVE RESISTIVE EX'S AND IS REPORTING LESS PAIN OVER-ALL. R SHLD ACTIVE ELEVATION 158 DEG. HE IS A GOOD CANDIDATE TO CONTINUE PT BASED ON PROGRESS MADE AND ROOM FOR FURHTER IMPROVEMENT HOWEVER HE ALSO APPEARS TO BE A GOOD CANDIDATE FOR MRI. R SHLD ABD IS STILL SIGNIFICANTLY WEAK WELL OVER-HEAD REACH. PATIENT AGREEABLE. Plan Plan Plan: CONTINUE PER POC 2X'S A WK X 4 WKS: R SHLD STRENGTHENING FOCUSING ON SCAPULAR STABILIZERS AND STARTING WITH ROTATOR CUFF STRENGTHENING WITH ELBOW AT SIDE (DO NOT CAUSE PAIN) SUPINE WAND FLEXION STRETCH AND R SDLY SLEEPER STRETCH FOR IR ROM. R SHLD US AT 1.5 W/CM2 X 8 MIN X 6-8 VISITS. TENS WITH MH OR CP TO R SHLD IN LYING WITH LEGS ELEVATED (NC) Balance/Gait/Function al tests Balance/Special Test Scores Quick DASH Score: 27.2725 Goals Goals Goal 1:: DECREASE C/O R SHLD PAIN BY AT LEAST 50% WITH WORK AND ADL FUNCTION Goal Time Frame: 4-6 Weeks Goal Progress: Progressing Goal 2:: INCREASE R SHLD AROM TO SYMMETRICAL TO L. Goal Time Frame: 4-6 Weeks Goal Progress: Progressing Goal 3:: INCREASE R SHLD STRENGTH TO SYMMETRICAL TO L Goal Time Frame: 4-6 Weeks Goal Progress: Progressing Goal 4:: IMPROVE QUICK DASH SCORE BY AT LEAST 5 POINTS. Goal Time Frame: 4-6 Weeks Goal 5:: INDEP GYM EX PROGRAM THAT DOES NOT CAUSE INCREASED R SHLD PAIN Goal Time Frame: 4-6 Weeks Goal Progress: Progressing Anticipated Interventions Anticipated Interventions Patient/Client Instruction: Educate patient on: Condition, Plan of Care and Risk Factors For the Purpose of:: To improve self management Therapeutic Exercise to Include: Strength training, Postural training, Neuromotor development, Passive ROM and Active ROM For the Purpose of:: To decrease pain, To increase ROM, To improve muscle performance and motor function, To improve ability to perform ADL's, To increase tolerance to activity/condition/po sition, To improve performance and independence with ADL's, To improve ability of physical actions for home/community/work/l eisure, To decrease soft tissue restriction, To increase flexibility/ROM and To improve self management Manual Therapy Techniques to Include: Scar massage, Mobilization, Passive ROM and Soft tissue mobilization For the Purpose of:: To decrease pain, To decrease swelling/inflammation , To increase ROM, To improve nutrient delivery to tissue, To decrease soft tissue restriction and To increase flexibility/ROM Cryotherapy (ice pack, ice massage): Yes Thermo therapy (hot pack): Yes For the Purpose of:: To decrease pain and To decrease swelling/inflammation Re-Evaluation Ending Re-evaluation ending: Please do not hesitate to contact me at [phone] by phone or if you have questions or concerns regarding this new plan of care! Sincerely, Rosalinda Kinsey, PT, Cert MDT 11/27/24 1142 CC: No Primary Care Physician; HELIO CORTEZ PIO Signed For Medicare only, by signing this I certify the plan of care. Physicians Signature Date Normal [facility] Inital Evaluation (1) - PTon 10-30-2024 Inital Evaluation (1) - PT [facility] [address] [place] [address] / REHABILITATION SERVICES INITIAL EVALUATION MR#: [id number] Acct: [id number] Name: SHIMON AMATO Rep #: [id number] : 1950 73 From: Rosalinda Kinsey PT, Cert. MDT Referring Dr.: HELIO CORTEZ Status: REG RCR Insurance: MEDICARE PART A B ANTHEM Patient's Visit Information Visit Information Visit Information: SHIMON AMATO is a 73 year old M referred to Physical Therapy by HELIO CORTEZ with a diagnosis of NONTRAUMATIC TEAR OF R ROTATOR CUFF, UNSPECIFIED TEAR EXTENT. Date of Evaluation: 10/30/24 Physical Therapist: Rosalinda Kinsey, PT, Cert MDT Visit Plan Frequency: 2-3x /Week Duration: 4-6 Months Plan: R SHLD STRENGTHENING FOCUSING ON SCAPULAR STABILIZERS AND STARTING WITH ROTATOR CUFF STRENGTHENING WITH ELBOW AT SIDE (DO NOT CAUSE PAIN) SUPINE WAND FLEXION STRETCH AND R SDLY SLEEPER STRETCH FOR IR ROM. R SHLD US AT 1.5 W/CM2 X 8 MIN X 6-8 VISITS. 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 Present symptoms: R NECK AND POSTERIOR SHLD PAIN. DENIES R UE NUMBNESS AND TINGLING. Present since: ABOUT 3 YEARS AGO. R BICEP TORE THIS FALL WHEN HAND CUTTING AN OAK LIMB WHILE ON A LADDER - A LOT OF SHLD PAIN. Getting Better, Getting Worse or Staying the Same: STAYING THE SAME Pain Scale: Worst - 6/10 Least - 1/10 Currently: 11/21 Commenced as a result of: NO APPARENT REASON Symptoms at onset: Worse: FLY MACHINE, CURLS, BENCH PRESS, INCLINE PRESS, WORK IN GENERAL Better: HEAT, COLD, RESTING IT, ALEVE, Excedrin Disturbed sleep: YES - DIFFICULTY FALLING ASLEEP BUT DOES NOT WAKE HIM UP. Previous history/Previous treatment: SX ON L WRIST A MONTH AGO. CHRIS MCLEAN HAS DONE MULTIPLE SHOTS IN R SHLD WITH THE LAST ONE BEING ABOUT A YEAR AGO. Dizziness: NO Tinnitus: YES Nausea: NO Shortness of Breath: A LITTLE Difficulty Swallowing: NO Imaging: NONE RECENT PMH/Recent major surgery: LUMA THR'S, L TKR, R WRIST ORIF, L CTR SEP 2024 OTHER: PATIENT DENIES ANY PHYSICIAN RESTRICTIONS. Objective Objective: Posture: FH. RShld's. Sensory deficit: R SHLD LIGHT TOUCH SENSATION INTACT. ROM deficit: R SHLD FLEX 153 DEG COMPARED TO L SHLD 170 DEG IN SUPINE AND R SHLD PAIN WITH MVMT AND ERP. R SHLD FULL ABD AND ER TO 90 DEG WITH 80 DEG ABD. IR TO 60 DEG WITH 80 DEG ABD AND PATIENT DENIES PAIN WITH IR AND ER ROM TESTING. Motor deficit: R SHLD FLEX 4/5, ABD 4/5, IR 5/5, ER 4/5, ELBOW 5/5 HEAD BONE GRINDER 65 LBS. L SHLD 5/5, ELBOW 5/5 HEAD BONE GRINDER 65 LBS (L CTR 1 MONTH AGO). NEURO INTACT. Palpation: R BICEPS BULGE. PATIENT DENIES TENDERNESS WITH R UE PALPATION. Special Tests R Shoulder External Rotation Lag Test - RC Tear: Negative R Shoulder Drop Sign - IS Test: Negative R Shoulder Empty Can - SS: Negative R Shoulder Apprehension Test - Anterior Instability: Negative Balance/Special Test Scores Quick DASH Score: 27.5000 Goals Goal 1:: DECREASE C/O R SHLD PAIN BY AT LEAST 50% WITH WORK AND ADL FUNCTION Goal Time Frame: 4-6 Weeks Goal 2:: INCREASE R SHLD AROM TO SYMMETRICAL TO L. Goal Time Frame: 4-6 Weeks Goal 3:: INCREASE R SHLD STRENGTH TO SYMMETRICAL TO L Goal Time Frame: 4-6 Weeks Goal 4:: IMPROVE QUICK DASH SCORE BY AT LEAST 5 POINTS. Goal Time Frame: 4-6 Weeks Goal 5:: INDEP GYM EX PROGRAM THAT DOES NOT CAUSE INCREASED R SHLD PAIN Goal Time Frame: 4-6 Weeks Rehabilitation Potential Physical Therapy Diagnosis: R SHLD PAIN AND WEAKNESS. RUPTURE OF LONG HEAD OF BICEPS. Rehabilitation Potential: Good Anticipated Interventions Patient/Client Instruction: Educate patient on: Condition, Plan of Care and Risk Factors For the Purpose of:: To improve self management Therapeutic Exercise to Include: Strength training, Postural training, Neuromotor development, Passive ROM and Active ROM For the Purpose of:: To decrease pain, To increase ROM, To improve muscle performance and motor function, To improve ability to perform ADL's, To increase tolerance to activity/condition/po sition, To improve performance and independence with ADL's, To improve ability of physical actions for home/community/work/l eisure, To decrease soft tissue restriction, To increase flexibility/ROM and To improve self management Manual Therapy Techniques to Include: Scar massage, Mobilization, Passive ROM and Soft tissue mobilization For the Purpose of:: To decrease pain, To decrease swelling/inflammation , To increase ROM, To improve nutrient delivery to tissue, To decrease soft tissue restriction and To increase flexibility/ROM Cryotherapy (ice pack, ice massage): Yes Thermo therapy (hot pack): Yes For the Purpose of:: To decrease pain and To decrease swelling/inflammation T (more content not included)... Normal [facility] CNOVon 10-23-2024 CNOV Office Visit (AGPOB1 ) SHIMON AMATO ([id number]) 1950 M Date Time Provider Department 10/23/24 10:30 AM HELIO CORTEZ AGPOB1 During your visit today, we recorded the following information about you: Respiration Weight Height 20/minute 97.5 kg 1.803 m Helio Cortez MD 10/23/2024 12:45 PM Signed Helio Cortez MD Orthopedic Sports Medicine Surgery [address] [place] [address] [place] [address] NAME: Shimon Amato : 1950 DATE: 10/23/2024 Reason for Visit/Chief Complaint: Right shoulder pain History of present illness: Marco Antonio is a 73 year old male who presents for evaluation of 6-year history of atraumatic right shoulder pain which has worsened recently. The patient denies any specific injury that he remembers to his right shoulder. He started to develop pain over his right trapezius region, scapular region and lateral shoulder. He also noticed associated weakness. His primary care physician has performed a few subacromial injections which she states helped his pain for maybe 4 to 6 weeks. He denies any numbness. 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 I have reviewed and updated the patient's past medical history, past surgical history, social history, and family history. This is located both in the patient's note and their intake form that has been scanned into the medical record for today's visit. 14 point review of systems was reviewed per signed intake sheet and is otherwise negative except as noted above. Objective: Constitutional: Well developed, well nourished, no acute distress HEENT: mucous membranes moist, normocephalic atraumatic Psychologic: appropriate mood and affect Chest: bilateral chest elevations, symmetric Cardiovascular: pink extremities, peripheral perfusion intact Respiratory: no respiratory distress, nonlabored on room air Abdomen: soft, nontender Neurologic: orientation to person, place and time Right SHOULDER EXAM There is no cervical tenderness and negative Spurling's. No obvious atrophy or deformity. No scapular dyskinesia. Patient has tenderness about the anterolateral shoulder. Active elevation is 170?, external rotation at the side 60?, internal rotation to T10. There is full passive range of motion. There is pain with elevation and resisted strength testing. There is pain with resisted external rotation. There is moderate weakness to supraspinatus testing, mild weakness to external rotation. Lift-off test is normal. The patient has a painful arc of abduction and positive impingement signs. There is a negative speed's test and negative Yergason's test. There is no significant pain with cross-arm adduction. No signs of instability or apprehension. Distal neurovascular exam is normal. The patient has a warm and well-perfused upper extremity with capillary refill less than 2 seconds. Sensation is intact to light touch in terminal nerve distributions. The patient has no palpable epitrochlear lymphadenopathy. Imaging: X-Rays: 3 views right shoulder personally reviewed demonstrating no acute abnormalities. Well-maintained glenohumeral joint space with no superior migration of the humeral head. Assessment/Plan 73-year-old male with right shoulder pain concerning for atraumatic complete rotator cuff tear -I discussed treatment options with the patient. Do think he would benefit from physical therapy. I placed an order and they will work on therapy and strengthening and range of motion exercises. I will see him back in 6 to 8 weeks for repeat evaluation. If he continues to have pain despite physical therapy, I will order an MRI. All questions were answered at today's visit. Will continue to monitor patient for Rupture of right proximal biceps tendon, initial encounter (primary encounter diagnosis) Nontraumatic tear of right rotator cuff, unspecified tear extent, patient to schedule visit as per follow up discussed. Helio Cortez MD 10/23/2024 Referring Provider: SELF [200] Allergies As of Date: 10/23/2024 Noted Allergy Reaction LATEX 02/09/2011 2 - Rash Date Reviewed: 10/23/2024 Reviewed by: Helio Cortez MD - Fully Assessed Reason for Visit: New [964081] Pain [78] Primary Visit Diagnosis:Rupture of right proximal biceps tendon, initial encounter [S46.211A] Other Visit Diagnosis:Nontraumati c tear of right rotator cuff, unspecified tear extent [M75.101] Order(s):CONSULT TO PHYSICAL THERAPY [9032] Order #: [id number]: 1 FUTURE Prescriptions as of 10/23/2024 - acetaminophen (TYLENOL EXTRA STRENGTH) 500 mg tablet Take 2 tablets by mouth every 8 hours as needed for pain. - docusate sodium (COLACE) 100 mg capsule Take 1 capsule by mouth twice daily. - aspirin, enteric coated (ECOTRIN (more content not included)... Normal [facility] CNOVon 09-26-2024 CNOV Office Visit (AGHWW1 ) SHIMON AMATO ([id number]) 1950 M Date Time Provider Department 09/26/24 10:45 AM [facility] During your visit today, we recorded the following information about you: Respiration Weight Height 20/minute 97.5 kg 1.803 m Kat Palomo PA-C 09/26/2024 11:16 AM Signed HAND SURGERY POST-OP NOTE Surgical Hx: 1999 R CTR at [facility] c/b neuroma excision 04/2020 R wrist arthrodesis w/ Dr Lacy Taylor CTS EMG-L severe CTS, L C5/6 radic w/o denervation 09/09/2024 left carpal tunnel release Interval Hx: Patient is 16 days post op. He is doing well, mentions his numbness and tingling he had prior to her surgery have fully resolved. No new concerns today. Exam: Left hand Incision is healing well with no signs of infection, sutures are intact. Sensation on the ulnar, median, radial nerve distributions are intact. AIN, PIN, ulnar motor intact. Able to make a full fist. Negative Pillar pain. APB strength 5 out of 5. Radial pulse 2+. Assessment/Plan: No diagnosis found. Sutures were removed today, patient tolerated well. May wash the incision with warm soapy water but may not submerge or soak it until fully healed which may take 3-5 days. Do not apply any lotions, creams or ointments until fully healed. Once incision is fully healed, may start applying lotion with vitamin E, Vaseline, Eudora butter, etc to help with scar healing. Educated on deep tissue massaging, scar modalities as well as desensitization exercises. Patient may start using the extremity as tolerated, advise to slowly wean back to regular use. Watch for any signs or symptoms of infection, let us know immediately if notices any of these, patient understood. As for his C5-C6 radiculopathy, we will recast for him to Dr. Winston. He agreed. Follow-up in the future as needed. Patient was also evaluated by Dr Stephan Palomo PA-C Hand Surgery The above reflects my independent exam and review. I saw and examined the patient myself personally. Parts of the HPI, ROS, exam and impression/plan may have been copied from my personal previous clinical note and remain pertinent. Current changes have been made and documented today. Other parts or date were deleted if not relevant for today. Plan as outlined. *This note was produced using speech recognition software and may contain errors related to that system including but not limited to punctuation, spelling, grammar, gender, and words or phrases that may be inappropriate. Allergies As of Date: 09/26/2024 Noted Allergy Reaction LATEX 02/09/2011 2 - Rash Date Reviewed: 09/26/2024 Reviewed by: Anahi Mauro LPN - Fully Assessed Reason for Visit: Post Op [174] Cmt: Denies pain Primary Visit Diagnosis:History of carpal tunnel surgery of left wrist [Z98.890] Other Visit Diagnosis:Radiculopat hy, cervical [M54.12] Order(s):[facility] [20000211] Order #: [id number]: 1 FUTURE Prescriptions as of 09/26/2024 - acetaminophen (TYLENOL EXTRA STRENGTH) 500 mg tablet Take 2 tablets by mouth every 8 hours as needed for pain. - docusate sodium (COLACE) 100 mg capsule Take 1 capsule by mouth twice daily. - aspirin, enteric coated (ECOTRIN LOW STRENGTH) 81 mg EC tablet Take 1 tablet by mouth twice daily for 28 days. - Cholecalciferol, Vitamin D3, (VITAMIN D) 25 mcg (1,000 unit) cap Take 1,000 Units by mouth once daily. - aspirin, enteric coated (ASPIRIN, ENTERIC COATED) 81 mg EC tablet Take 81 mg by mouth once daily. - calcium carbonate/vitamin D3 (CALCIUM 500 + D ORAL) Take by mouth. - multivitamin tablet Take 1 tablet by mouth once daily. 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] 12/18/2006 Pain in joint, pelvic region and thigh [M25.559]05/22/2011 Urinary incontinence [R32] 09/15/2015 Benign non-nodular prostatic hyperplasia with l*09/15/2015 Primary osteoarthritis of right hip [M16.11] 07/16/2018 Hip osteoarthritis [M16.9] 08/13/2018 Status post bilateral hip replacements [Z96.643]09/24/2018 Post-traumatic osteoarthritis, right wrist [M19*04/26/2020 MYLENE (obstructive sleep apnea) [G47.33] 04/26/2020 Hypertension, essential [I10] 08/03/2021 Osteoarthritis of left knee [M17.12] 02/22/2022 S/P total knee arthroplasty, left [Z96.652] 03/16/2022 Obesity, Class I, BMI 30-34.9 [E66.811] 03/16/2022 Status post left knee replacement [Z96.652] 04/05/2022 06/02/2022 Encounter Status:Closed by KAT PALOMO on 09/26/24 [facility] ANES POSTPROC EVALon 024 ANES POSTPROC EVAL HNO ID: [id number] Author: KINGA EMANUEL MD Service: Anesthesiology Author Type: Anesthesiologist Type: Anesthesia Postprocedure Evaluation Filed: 09/09/2024 14:26 Note Text: POST ANESTHESIA EVALUATION NOTE : 1950 Procedure Summary Date: 09/09/24 Room / Location: [facility] Anesthesia Start: 1345 Anesthesia Stop: 1416 Procedure: DECOMPRESSION NERVE MEDIAN CARPAL TUNNEL (Left: Wrist) Diagnosis: Left carpal tunnel syndrome (Left carpal tunnel syndrome [G56.02]) Surgeons: Stephan Yun MD Responsible Provider: Kinga Emanuel MD Anesthesia Type: MAC ASA Status: 2 Anesthesia Type: MAC Last Vitals Vitals Value Taken Time BP 123/84 09/09/24 1416 Temp 36 ?C (96.8 ?F) 09/09/24 1416 Pulse 74 09/09/24 1416 Resp 16 09/09/24 1416 SpO2 93 % 09/09/24 1425 Vitals shown include unfiled device data. Post Anesthesia Patient Status Patient Evaluation: PACU. PACU/ICU Patient Condition: stable. Anticipated Disposition: phase 2 then home. Neurological Status: aware and responsive. Pulmonary Status: breathing comfortably on supplemental oxygen Airway Control: returned to baseline unsupported. Cardiovascular Status: stable. Pain Management: clinically adequate Postoperative Hydration: acceptable. Intraoperative Events: no significant anesthesia events Post Operative Nausea/Vomiting Status: no significant post operative nausea or vomiting Recommendation: continue current plan of care. Anesthesia Observations No Documentation SIGNATURE: Kinga Emanuel MD PATIENT NAME: Shimon Amato DATE: September 09, 2024 TIME: 2:26 PM CSN: [id number] Normal [facility] ANES PRE-OPon 09-09-2024 ANES PRE-OP HNO ID: [id number] Author: KINGA EMANUEL MD Service: Anesthesiology Author Type: Anesthesiologist Type: Anesthesia Preprocedure Evaluation Filed: 09/09/2024 13:14 Note Text: ANESTHESIOLOGY DAY OF SURGERY NOTE Left carpal tunnel Aspirin Multivitamin Echo 2023 EF = 49% : 1950 Procedure Information Date/Time: 09/09/241399 Procedure: DECOMPRESSION NERVE MEDIAN CARPAL TUNNEL (Left: Wrist) Location: [facility] [place] [facility] Surgeons: Stephan Yun MD Estimated body mass index is 29.99 kg/m? as calculated from the following: Height as of this encounter: 180.3 cm (5' 11). Weight as of this encounter: 97.5 kg (215 lb). Most recent hematocrit and potassium results: Hematocrit 48.3 09/27/2023 Potassium 4.3 09/27/2023 Relevant Problems ANESTHESIA (+) MYLENE (obstructive sleep apnea) CARDIO (+) Hypertension, essential PULMONARY (+) MYLENE (obstructive sleep apnea) I - PHYSICAL EVALUATION AIRWAY Patient intubated: No. Tracheostomy tube not present Mallampati: II. TM distance: >3 FB. Neck ROM: full ROM without neurological symptoms. Mouth opening: adequate. Short neck: no. Thick neck: no DENTAL Dental findings: teeth intact. II - ANESTHESIA PLAN ASA Score: 2 Anesthetic Plan: MAC NPO Status: adequate Beta Ann Monitoring Plan Monitoring plan: standard ASA. Post Procedure Analgesic Plan Postoperative analgesic plan: multimodal analgesia. Informed Consent Anesthetic risks, benefits, alternatives, personnel and consent discussed: yes. Patient / Responsible Libertarian agrees to proceed: yes Patient / Surrogate agrees to blood products: blood products not planned Potential Anesthesia issues that may suggest increased risk of complications or contraindication to planned procedure: none. No vitals data found for the desired time range. No current facility-administered medications on file as of 09/09/2024. Outpatient Medications as of 09/09/2024 Medication Sig acetaminophen (TYLENOL EXTRA STRENGTH) 500 mg tablet Take 2 tablets by mouth every 8 hours as needed for pain. aspirin, enteric coated (ASPIRIN, ENTERIC COATED) 81 mg EC tablet Take 81 mg by mouth once daily. calcium carbonate/vitamin D3 (CALCIUM 500 + D ORAL) Take by mouth. multivitamin tablet Take 1 tablet by mouth once daily. docusate sodium (COLACE) 100 mg capsule Take 1 capsule by mouth twice daily. (Patient not taking: Reported on 12/08/2022) aspirin, enteric coated (ECOTRIN LOW STRENGTH) 81 mg EC tablet Take 1 tablet by mouth twice daily for 28 days. Cholecalciferol, Vitamin D3, (VITAMIN D) 25 mcg (1,000 unit) cap Take 1,000 Units by mouth once daily. (Patient not taking: Reported on 02/22/2022 ) I have interviewed and examined the patient. I have reviewed the medical record and/or the pre-anesthesia evaluation, pertinent labs, and test results. This contains updated information obtained within 48 hours of Surgery/Procedure. SIGNATURE: Kinga Emanuel MD PATIENT NAME: Shimon Amato DATE: September 09, 2024 TIME: 12:34 PM CSN: [id number] Normal [facility] HISTORY PHYSICALon HISTORY PHYSICAL HNO ID: [id number] Author: WILFREDO SERRANO APRN.CNP Service: Anesthesiology Author Type: Nurse Practitioner Type: H&P Filed: 09/09/2024 13:40 Note Text: HISTORY AND PHYSICAL EXAMINATION SERVICE DATE: 09/09/2024 SERVICE TIME: 1:18 PM PRIMARY CARE PHYSICIAN: Giovanni Mclean DO Shimon Amato 1950 [id number] REASON FOR VISIT: Shimon Amato is a 73 year old male who is scheduled for....... Procedure(s): DECOMPRESSION NERVE MEDIAN CARPAL TUNNEL (Left) at the request of for routine HANDP. The patient has the following: ACTIVE PROBLEM LIST Degeneration of Intervertebral Disc, Site Unspecified Pain in Joint, Pelvic Region and Thigh Urinary Incontinence Benign Non-Nodular Prostatic Hyperplasia With Lower Urinary Tract Symptoms Primary Osteoarthritis of Right Hip Hip Osteoarthritis Status Post Bilateral Hip Replacements Post-Traumatic Osteoarthritis, Right Wrist Mylene (Obstructive Sleep Apnea) Hypertension, Essential Osteoarthritis of Left Knee S/P Total Knee Arthroplasty, Left Obesity, Class I, Bmi 30-34.9 Subjective CHIEF COMPLAINT: I'm having my carpal tunnel fixed HPI: Patient is a 73 year old year old male with a PMH significant for OAB, BPH, MYLENE who presents today for the above procedure. He states that he has had carpal tunnel in his left hand for several years and states that he has never had injections or other treatments for it. He states that his current pain in that wrist is 5/10. He has no questions or concerns at this time and his spouse is at the bedside. PAST MEDICAL HISTORY Diagnosis Date Benign non-nodular prostatic hyperplasia with lower urinary tract symptoms 09/15/2015 Hypertension OAB (overactive bladder) Sleep apnea pt denies/pt states sleep study about 20 yrs ago/ states they told him no sleep apnea PAST SURGICAL HISTORY Procedure Laterality Date APPENDECTOMY 1976 APPENDECTOMY HX ARTHROSCOPY KNEE DIAGNOSTIC W/WO SYNOVIAL BX SPX Left Arthroscopy, knee COLONOSCOPY 12/19/2021 repeat in 10 years JOINT REPLACEMENT HX NEUROPLASTY AND/TRANSPOS MEDIAN NRV CARPAL TUNNE Right Carpal tunnel decomp PAST SURGICAL HISTORY OF neuroma right hand PAST SURGICAL HISTORY OF Left 10/15/2014 Arthroplasty left -[facility] PAST SURGICAL HISTORY OF Right 2000 wrist fusion PAST SURGICAL HISTORY OF uvulectomy PAST SURGICAL HISTORY OF Bilateral 08/2018 and 10/2014 CATRACHITA TONSILLECTOMY HX FAMILY HISTORY Problem Relation Age of Onset Stroke Mother other (Other) Father hip fracture/blood clot, was on AC prior to that for ? heart Arthritis Sister No Known Problems Brother Cancer Brother SOCIAL HISTORY: Social History Tobacco Use Smoking status: Never Smokeless tobacco: Never Vaping Use Vaping status: Never Used Substance Use Topics Alcohol use: Yes Alcohol/week: 2.0 standard drinks of alcohol Types: 2 Glasses of Wine (5oz) per week Comment: few times a month Drug use: No Prior to Admission medications as of 09/09/24 1328 Medication Sig Last Dose Taking acetaminophen (TYLENOL EXTRA STRENGTH) 500 mg tablet Take 2 tablets by mouth every 8 hours as needed for pain. Yes aspirin, enteric coated (ASPIRIN, ENTERIC COATED) 81 mg EC tablet Take 81 mg by mouth once daily. 09/08/2024 Yes calcium carbonate/vitamin D3 (CALCIUM 500 + D ORAL) Take by mouth. 09/08/2024 Yes multivitamin tablet Take 1 tablet by mouth once daily. 09/08/2024 Yes docusate sodium (COLACE) 100 mg capsule Take 1 capsule by mouth twice daily. Patient not taking: Reported on 12/08/2022 aspirin, enteric coated (ECOTRIN LOW STRENGTH) 81 mg EC tablet Take 1 tablet by mouth twice daily for 28 days. Cholecalciferol, Vitamin D3, (VITAMIN D) 25 mcg (1,000 unit) cap Take 1,000 Units by mouth once daily. Patient not taking: Reported on 02/22/2022 No medication comments found. ALLERGIES Allergen Reactions Latex Rash REVIEW OF SYSTEMS: PAIN ASSESSMENT: Pain Pain Level: 5 Acceptable level: 7 Pain Location: Hand-Left Pain Assessment: Assessment Description: Tingling Duration: Continuous Intervention/Comfort measure: Reposition, Relaxation Tool: Verbal (Numeric Rating or Visual Analog Scale) General: Denies fever, chills, and unexpected weight change. Neuro: Denies dizziness and headaches. Respiratory: Denies SOB or cough Cardiovascular: Denies CP and palpitations. GI: Denies abd pain and N/V/D. : Denies dysuria. Endocrine: No history of diabetes or thyroid disease Hematology: Denies history of bleeding or clotting disorder. Psych: Denies anxiety/depression. Musculoskeletal: See HPI Skin: Denies open sores and rashes. Objective PHYSICAL EXAM: VITALS: 09/03/24 1212 09/09/24 1245 BP: 141/84 Pulse: 69 Resp: 18 Temp: 36.2 ?C (97.2 ?F) TempSrc: Temporal SpO2: 95% Weight: 97.5 kg (215 lb) 97.5 kg (215 lb) Height: 180.3 cm (5' 11) 180.3 cm (5' 11) BP 141/84 Pulse 69 Temp (Sr (more content not included)... Normal [facility] NURSING PROGon 09-09-2024 NURSING PROG HNO ID: [id number] Author: TIAGO MCKEON RN Service: Nursing Author Type: Registered Nurse Type: Nursing Progress Note Filed: 09/09/2024 12:56 Note Text: Dr Yun notified of splinter wound on operative side; Dr Yun in to see patient and okay to proceed as scheduled Normal [facility] OPERATIVE NOon 09-09-2024 OPERATIVE NO HNO ID: [id number] Author: STEPHAN YUN MD Service: Orthopaedic Surgery Author Type: Physician Type: Operative Report Filed: 09/09/2024 14:21 Note Text: Hand Surgery Operative Note PATIENT: Shimon Amato [id number] DATE OF SURGERY: 09/09/2024 PREOPERATIVE DIAGNOSES: Left carpal tunnel syndrome POSTOPERATIVE DIAGNOSES: Same OPERATION: Neuroplasty and/or transposition; median nerve at carpal tunnel - carpal tunnel open release Nerve block of the median nerve at the wrist ANESTHESIA: Local and MAC ATTENDING SURGEON: Stephan Yun MD AGRICULTURE INTERNSHIP SURGEON: There were no qualified residents available to assist in the case Kat Palomo PA-C was the respiratory equipment assistant Under the supervision of the attending surgeon, they assisted during the entire operation and their involvement included: positioning the patient, prepping the surgical site, draping the surgical field, retraction during the approach, assistance during the critical steps of the procedure, wound closure, and application of the dressing. START/END TIMES: Incision/Procedure Start Time: 1:59 PM Incision Close/Procedure End Time: 2:12 PM TOURNIQUET TIME: 15 min EBL: Minimal SPECIMENS: None IMPLANTS: None COMPLICATIONS: None COUNTS: All counts were noted to be correct prior to skin closure. DISPOSITION: To PACU and then home CLINICAL INDICATIONS: See office notes for complete details. The alternatives, risks, benefits and indications of surgery were discussed with the patient. The patient verbalized understanding of the risks as well as the alternatives to surgery. The patient wished to proceed with operative intervention. A signed and witnessed informed consent was confirmed to be completed. The site was marked by the surgical team and confirmed by the patient. FINDINGS: Complete release of the transverse carpal ligament under direct visualization. DESCRIPTION OF PROCEDURE: Local and MAC The patient was placed in the supine position on a regular operating table with a hand table. All body parts were well padded and protected to make sure there were no pressure points. A timeout was performed confirming the patient, the laterality, and the procedure being performed. Antibiotics were administered. MAC anesthesia was given. Local anesthesia w/ a total of 10 cc?s of 1% lidocaine w/ 1:100,000 epi was administered to the surgical site. The surgical site was prepped and draped with sterile technique. Carpal tunnel release Esmark was applied and tourniquet was raised. An approximately 4 cm longitudinal incision was centered over the carpal tunnel in line w/ the RF extending from Pope's cardinal line to the distal wrist crease. The incision was carried through skin and subcutaneous tissue. Dissection continued sharply through the palmar aponeurosis with a scalpel. The transverse carpal ligament was identified. A longitudinal incision was made in the transverse carpal ligament. The distal extent of the transverse carpal ligament was identified and overlying tissue was exposed with scissors. The ligament was released with knife and the yellow out pooching fat was seen. Spreading w/ scissors confirmed complete distal release Next, the superficial and deep aspects of the proximal extent of the ligament were developed with scissors. The ligament was first incised w/ a scalpel. The ligament was then released 3 cm proximal across the wrist crease with scissors. Examination of the carpal tunnel demonstrated complete release of the transverse carpal ligament thru the entire surgical field. There was excellent decompression, there was no obvious tenosynovitis of the flexor tendons, there was no obvious mass in the carpal tunnel. The median nerve was left protected under the radial leaflet of the released transverse carpal ligament. The incision was thoroughly irrigated. Wound was closed w/ nylon sutures on the skin. At the conclusion of the procedure the incision was dressed with baci, adaptic, Kerlix, and coban. Tourniquet was dropped. The patient was transferred to the PACU in stable condition. POST-OP: Protected WBing x2-4 wks Start finger AROM immediately Dressing down POD7 SURGICAL ATTENDANCE: I, the attending surgeon was present/available throughout the entire procedure. Normal [facility] CNOVon 08-22-2024 CNOV Office Visit ([id number] ) SHIMON AMATO ([id number]) 1950 M Date Time Provider Department 08/22/24 11:00 AM STEPHAN YUN [id number] During your visit today, we recorded the following information about you: Temperature Weight Height 98.3 degrees 95.3 kg 1.803 m Zen Burgess Tech 08/22/2024 12:39 PM Signed REVIEW OF SYSTEMS: GENERAL: Well developed, well nourished. No acute distress PAIN: Negative for pain, history of chronic pain or current treatment for chronic pain conditions CARDIOVASCULAR: Negative for chest pain, leg swelling and palpations. MSK: Negative for joint swelling SKIN: Negative for lesions, rash, itching, metal sensitivity NEURO: Numbness/tingling of extremties ENDOCRINE: Negative for diabetic associated symptoms HEMATOLOGY: Negative for excessive bleeding, clots, bleeding disorders. 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 R CTR at [employer] c/b neuroma excision 04/2020 R wrist arthrodesis w/ Dr Lacy L CTS EMG-L severe CTS, L C5/6 radic w/o denervation Years of left hand numbness and aching pain that is gotten worse Currently the radial digits are numb all the time PMH: PAST MEDICAL HISTORY Diagnosis Date Benign non-nodular prostatic hyperplasia with lower urinary tract symptoms 09/15/2015 Hypertension OAB (overactive bladder) Sleep apnea ALLERGIES Allergen Reactions Latex Rash Social History Tobacco Use Smoking status: Never Smokeless tobacco: Never Vaping Use Vaping status: Never Used Substance Use Topics Alcohol use: Yes Alcohol/week: 2.0 standard drinks of alcohol Types: 2 Glasses of Wine (5oz) per week Comment: few times a month Drug use: No Review of Systems: 12 point review of systems was performed and found to be non-contributory Exam: Left hand Skin intact, no obvious swelling Full finger flexion/extension, FPL/EPL intact Fingers wwp SILT radial, decree sensation radial digits Positive Tinel's at the wrist over the carpal tunnel, positive flexion/compression, mild thenar atrophy, APB 4+/5 strength Negative Tinel's at the wrist over Guyon's, negative Tinel's at the elbow, no 1st ESTIVEN atrophy, IO 5/5 strength 2PD not tested Imaging: XR 3 views left hand Severe first CMC degen and moderate radiocarpal degen Assessment/Plan: (G56.02) Carpal tunnel syndrome of left wrist (primary encounter diagnosis) New and/or prior imaging was reviewed with the pt Patient has classic carpal tunnel symptoms Reviewed his EMG which showed severe He has tried night splints which have not helped He like to have surgery rather than a steroid injection which I think is reasonable at this point with his significant symptoms I discussed with the patient that they have severe carpal tunnel syndrome. Thus the goal of the surgery is to prevent this from getting worse. I explained that there has been permanent irreversible damage done to the nerve and I will not be able to restore all of that function by doing a decompression. My hope is that their symptoms will get better, but I cannot guarantee that there will be a significant improvement from pre-op. The patient understood this and still wished to proceed with surgery. Consent signed Local and MAC I scheduled this postop for 17 days in [place] Non-operative and operative interventions were thoroughly discussed w/ the patient. After explaining the risks and benefits of each route, the patient elected to proceed w/ operative intervention. I explained the specific risks, benefits, and goals of the procedure. These risks include, but are not limited to: infection, wound healing problems, neurovascular injury, weakness, stiffness, scarring, Complex regional pain syndrome, and even loss of digit or limb. If hardware is used, there is a risk of hardware irritation or failure with possible need for revision. I stated the possibility of no improvement, worsening of the pre-op symptoms, and the need for further surgery. No guarantees were stated or implied. All the patient's questions were answered to their satisfaction. The patient expressed understanding of the risks, benefits, and possible outcomes. Medical Decision Making: Problems: Moderate: 1+ chronic illnesses with change Data: Unique test result(s) reviewed: 1 Unique test(s) ordered: 1 Risk: Moderate: Decision on minor surgery w/ risk factors Medical Decision Making Level: 4 - Moderate Stephan Yun MD Hand Surgery *The above reflects my independent exam and review. I saw and examined the patient myself personally. Parts of the HPI, ROS, exam and impression/plan may have been copied from my personal previous clinical note and remain pertinent. Current changes have been made and documented today. Other p (more content not included)... Normal [facility] EMG(NEURO/NI)on 08-18-2024 Results can be seen in attached scanned documents. If you are a patient reviewing this test result, call the doctor who ordered the test with any questions. [facility] Large Joint Arthro/Inj: R brand bacromial bursaon 04-11-2024 Giovanni Mclean V DO 04/11/2024 10:19 AM Large Joint Arthro/Inj: R subacromial bursa Informed Consent Consent Obtained: Verbal Mchenry Protocol A moment to CARE was completed. SIGN IN TIME OUT 04/11/2024 10:18 AM The procedure site was prepped in the usual sterile fashion. Site: R subacromial bursa Medications: 6 mg betamethasone acetate-betamethasone sodium phosphate 6 mg/mL Anesthetics: 4 mL lidocaine (PF) 10 mg/mL (1 %); 4 mL BUPivacaine (PF) 0.5 % (5 mg/mL) Outcome: Tolerated well, no immediate complications Post-injection instructions were reviewed with the patient and the patient voiced understanding of these instructions. [facility] XR KNEE POST OP 3V AP/LAT/ME RCHANT LEFTon 04-07-2022 [facility] Basic metabolic 2000 panelon 03-17-2022 Anion gap [Moles/Vol] 12 mmol/L Normal 9-18 [facility] Comment on above: Order Comment: Speci men Type: BLOOD SPECIMENOrdering Facility: [facility] Address: [address] [place] [address] Performed By: #### 2 4321-2 ####ISLAM LABORATORYCLIA [id number] [place] [id number] [place] Calcium [Mass/Vol] 8.8 mg/dL Normal 8.5-10.2 [facility] Comment on above: Order Comment: Speci men Type: BLOOD SPECIMENOrdering Facility: [facility] Address: [address] [place] [address] Performed By: #### 2 4321-2 ####ISLAM LABORATORYCLIA [id number] [place] [address] [place] Chloride [Moles/Vol] 107 mmol/L High 97-105 [facility] Comment on above: Order Comment: Speci men Type: BLOOD SPECIMENOrdering Facility: [facility] Address: [address] [place] [address] Performed By: #### 2 4321-2 ####ISLAM LABORATORYCLIA [id number] [place] [id number] [place] CO2 [Moles/Vol] 22 mmol/L Normal 22-30 [facility] Comment on above: Order Comment: Speci men Type: BLOOD SPECIMENOrdering Facility: [facility] Address: [address] [place], [place] [id number] Performed By: #### 2 4321-2 ####ISLAM LABORATORYCLIA [id number] [place] [id number] [place] Creatinine [Mass/Vol] 0.81 mg/dL Normal 0.73-1.22 [facility] Comment on above: Order Comment: Speci men Type: BLOOD SPECIMENOrdering Facility: [facility] Address: [address] [place] [address] Performed By: #### 2 4321-2 ####ISLAM LABORATORYCLIA [id number] [address] [place] ESTIMATED GLOMERULAR FILTRATION RATE 94 mL/min/1.73m??? Normal >=60 [facility] Comment on above: Order Comment: Andrea barriga Type: BLOOD SPECIMENOrdering Facility: [facility] Address: [address] [place] [address] Result Comment: Lavonne mated Glomerular Filtration Rate (eGFR) is calculated using the 2020 CKD-EPI creatinine equation. This equation utilizes serum creatinine, sex, and age as parameters. The creatinine assay has traceable calibration to isotope dilution-mass spectrometry. Refer to KDIGO guidelines for clinical interpretation. In patients with unstable renal function, e.g. those with acute kidney injury, the eGFR may not accurately reflect actual GFR. Performed By: #### 2 4321-2 ####ISLAM LABORATORYCLIA [id number] [place] [address] [place] Glucose [Mass/Vol] 111 mg/dL High 74-99 [facility] Comment on above: Order Comment: Andrea barriga Type: BLOOD SPECIMENOrdering Facility: [facility] Address: [address] [place] [address] Result Comment: The [place] Diabetes Association (ADA) provides guidance for cutoff values for fasting glucose and random glucose. The ADA defines fasting as no caloric intake for at least 8 hours. Fasting plasma glucose results between 100 to 125 mg/dL indicate increased risk for diabetes (prediabetes). Fasting plasma glucose results greater than or equal to 126 mg/dL meet the criteria for diagnosis of diabetes. In the absence of unequivocal hyperglycemia, results should be confirmed by repeat testing. In a patient with classic symptoms of hyperglycemia or hyperglycemic crisis, random plasma glucose results greater than or equal to 200 mg/dL meet the criteria for diagnosis of diabetes. Reference: Standards of Medical Care in Diabetes 2016, [place] [employer] Association. Diabetes Care. 2016.39(Suppl 1). Performed By: #### 2 4321-2 ####ISLAM LABORATORYCLIA [id number] [address] [place] Potassium [Moles/Vol] 3.8 mmol/L Normal 3.7-5.1 [facility] Comment on above: Order Comment: Speci men Type: BLOOD SPECIMENOrdering Facility: [facility] Address: [address] [place] [address] Performed By: #### 2 4321-2 ####ISLAM LABORATORYCLIA [id number] [address] [place] Sodium [Moles/Vol] 141 mmol/L Normal 136-144 [facility] Comment on above: Order Comment: Speci men Type: BLOOD SPECIMENOrdering Facility: [facility] Address: [address] [place] [address] Performed By: #### 2 4321-2 ####ISLAM LABORATORYCLIA [id number] [address] Urea nitrogen [Mass/Vol] 15 mg/dL Normal 9-24 [facility] Comment on above: Order Comment: Speci men Type: BLOOD SPECIMENOrdering Facility: [facility] Address: [address] [place] [address] Performed By: #### 2 4321-2 ####ISLAM LABORATORYCLIA [id number] [place] [address] [facility] CASE MANAGEMon 03-17-2022 CASE MANAGEM HNO ID: [id number] Author: Faina Dwyer RN Service: Care Management Author Type: Registered Nurse Type: Care Mgt Progress Note Filed: 03/17/2022 1:41 PM Note Text: CARE MANAGEMENT DISCHARGE NOTE SERVICE DATE: 03/17/2022 SERVICE TIME: 1257 LOS: 0 days Admission Date: 03/16/2022 DISCHARGE ARRANGEMENT (list agency and phone number) Discharge Arrangement: Home with Home Health Provider Name: [facility] Care CAREGIVER ASSESSMENT: Caregiver is ready, willing and able to meet the patient's needs as recommended by the inter-professional team:: Yes Does the patient have an acute stroke diagnosis, or has the patient had a stroke during this admission?: No Patient's transition needs and plan for meeting these needs: to go home once all goals have been met HANDOFF COMMUNICATION: Handoff to: Primary Care Physician TRANSPORTATION ARRANGEMENTS: Transportation Arrangements: Car ADDITIONAL CONTACT RESOURCES: summary of care Patient to discharge home with his providing transportation. He has all DME for home. Prescriptions delivered to the bedside. CC to provide home care. Summary of care sent to care team, PCP, C. SIGNATURE: Faina Dwyer RN PATIENT NAME: Shimon Amato DATE: March 17, 2022 TIME: 1:39 PM PAGER/CONTACT #: [phone] [facility] CBC panel Auto (Bld)on 03-17 Erythrocyte distribution width (RBC) [Ratio] 12.4 % Normal 11.5-15.0 [facility] Comment on above: Order Comment: Andrea barriga Type: BLOOD SPECIMENOrdering Facility: [facility] Address: [address] [place] [address] Performed By: #### 5 8410-2 ####ISLAM LABORATORYCLIA [id number] [place] [address] [place] [facility] Hematocrit (Bld) [Volume fraction] 42.1 % Normal 39.0-51.0 [facility] Comment on above: Order Comment: Andrea barriga Type: BLOOD SPECIMENOrdering Facility: [facility] Address: [address] [place] [address] Performed By: #### 5 8410-2 ####ISLAM LABORATORYCLIA [id number] [place] [id number] [place] Hemoglobin (Bld) [Mass/Vol] 13.6 g/dL Normal 13.0-17.0 [facility] Comment on above: Order Comment: Andrea barriga Type: BLOOD SPECIMENOrdering Facility: [facility] Address: [address] [place] [address] Performed By: #### 5 8410-2 ####ISLAM LABORATORYCLIA [id number] [address] [place] [address] [place] [facility] MCH (RBC) [Entitic mass] 29.4 pg Normal 26.0-34.0 [facility] Comment on above: Order Comment: Speci men Type: BLOOD SPECIMENOrdering Facility: [facility] Address: [address] [place] [address] Performed By: #### 5 8410-2 ####ISLAM LABORATORYCLIA [id number] [address] MCHC (RBC) [Mass/Vol] 32.3 g/dL Normal 30.5-36.0 [facility] Comment on above: Order Comment: Speci men Type: BLOOD SPECIMENOrdering Facility: [facility] Address: [address] [place] [address] Performed By: #### 5 8410-2 ####ISLAM LABORATORYCLIA [id number] [address] MCV (RBC) [Entitic vol] 91.1 fL Normal 80.0-100.0 [facility] Comment on above: Order Comment: Speci men Type: BLOOD SPECIMENOrdering Facility: [facility] Address: [address] [place] [address] Performed By: #### 5 8410-2 ####ISLAM LABORATORYCLIA [id number] [address] Nucleated RBC (Bld) [#/Vol] 10*3/uL Normal <0.01 [facility] Comment on above: Order Comment: Speci men Type: BLOOD SPECIMENOrdering Facility: [facility] Address: [address] [place] [address] Performed By: #### 5 8410-2 ####ISLAM LABORATORYCLIA [id number] [address] Platelet mean volume (Bld) [Entitic vol] 11.3 fL Normal 9.0-12.7 [facility] Comment on above: Order Comment: Speci men Type: BLOOD SPECIMENOrdering Facility: [facility] Address: [address] [place], [place] [address] Performed By: #### 5 8410-2 ####ISLAM LABORATORYCLIA [id number] [address] [place], [place] [id number] [place] [facility] Platelets (Bld) [#/Vol] 217 10*3/uL Normal 150-400 [facility] Comment on above: Order Comment: Speci men Type: BLOOD SPECIMENOrdering Facility: [facility] Address: [address] [place], [place] [address] Performed By: #### 5 8410-2 ####ISLAM LABORATORYCLIA [id number] [address] [place] [address] [place] [facility] RBC (Bld) [#/Vol] 4.62 10*6/uL Normal 4.20-6.00 [facility] Comment on above: Order Comment: Speci men Type: BLOOD SPECIMENOrdering Facility: [facility] Address: [address] [place], [place] [address] Performed By: #### 5 8410-2 ####ISLAM LABORATORYCLIA [id number] [address] [place] [address] WBC (Bld) [#/Vol] 12.52 10*3/uL High 3.70-11.00 [facility] Comment on above: Order Comment: Speci men Type: BLOOD SPECIMENOrdering Facility: [facility] Address: [address] [place], [place] [address] Performed By: #### 5 8410-2 ####ISLAM LABORATORYCLIA [id number] [place] [address] [facility] CONSULT PROGon 03-17-2022 CONSULT PROG HNO ID: [id number] Author: West Crane MD Service: General Internal Medicine Author Type: Physician Type: Consult Progress Note Filed: 03/17/2022 5:46 PM Note Text: CONSULT NOTE - INTERNAL MEDICINE PATIENT NAME: Shimon Amato SERVICE DATE: 03/17/2022 SERVICE TIME: 12:38 PM ADMITTING PHYSICIAN: Luis Holliday MD SUBJECTIVE: Patient denies any CP, SOB, Dizziness, Palpitations, Abdominal Pain, Nausea or Vomiting. He is passing flatus, denies any urinary problems His pain is controlled well OBJECTIVE PHYSICAL EXAM: Patient Vitals for the past 24 hrs: BP Temp Temp src Pulse Resp SpO2 03/17/22 1205 145/88 ? Oral 68 18 95 % 03/17/22 0854 140/79 36.5 ?C (97.7 ?F) Oral 73 18 97 % 03/17/22 0425 123/73 36.4 ?C (97.5 ?F) Oral 65 18 96 % 03/17/22 0036 125/69 36.5 ?C (97.7 ?F) Oral 71 18 96 % 03/16/22 2017 151/89 36.5 ?C (97.7 ?F) Oral 83 17 96 % 03/16/22 1558 132/82 36.7 ?C (98.1 ?F) Oral 67 17 95 % Body mass index is 30.14 kg/m?. GENERAL: no distress LUNGS: Lungs clear to auscultation, Fair air entry. CARDIAC: normal S1 and S2; no rubs or gallops ABDOMEN: Abdomen soft, non-tender. BS normal. EXTREMETIES: Normal ankle DF Bilateral Problem List ACTIVE PROBLEM LIST Degeneration of Intervertebral Disc, Site Unspecified Pain in Joint, Pelvic Region and Thigh Urinary Incontinence Benign Non-Nodular Prostatic Hyperplasia With Lower Urinary Tract Symptoms Primary Osteoarthritis of Right Hip Hip Osteoarthritis Status Post Bilateral Hip Replacements Post-Traumatic Osteoarthritis, Right Wrist Mylene (Obstructive Sleep Apnea) Hypertension, Essential Osteoarthritis of Left Knee S/P Total Knee Arthroplasty, Left Obesity, Class I, Bmi 30-34.9 DATA: Diagnostic tests reviewed for today's visit: Most recent labs: CBC, Coags, BMP, Mg, Phos Recent Labs 03/17/22 0320 WBC 12.52* HB 13.6 HCT 42.1 PLT 217 NA 141 K 3.8 CHLOR 107* CO2 22 BUN 15 CREAT 0.81 GLUC 111* CA 8.8 Assessment/Plan: 1. Status post left TKR: His pain is controlled well. He is comfortable with plans for discharge to home today. 2. Hypertension, essential: Blood pressure remains controlled with current medications. 3. Overactive bladder, BPH with LUTS: Remained stable, denies any new urinary symptoms. SIGNATURE: West Crane MD DATE: March 17, 2022 TIME: 12:38 PM This note was partially created using voice recognition software and is inherently subject to errors including those of syntax and sound-alike substitutions which may escape proofreading. In such instances, original meaning may be extrapolated by contextual derivation [facility] THERAPY NTon 03-17-2022 THERAPY NT HNO ID: [id number] Author: AWA Caicedo/Claudia Service: Occupational Therapy Author Type: Occupational Therapist Type: Therapy (PT/OT/Speech/Resp) Filed: 03/17/2022 10:41 AM Note Text: Occupational Therapy Evaluation SERVICE DATE: 03/17/2022 SERVICE TIME: 0954 to 1034 ROOM: [place] [address] Recommended Discharge Disposition: Home Anticipated Discharge Needs: Physical Assist at Home Physical Assist at Home for: Cleaning;Laundry;Meal s;Shopping;Transporta tion Recommended Discharge Equipment: No equipment needs anticipated OT 6 Clicks Score: 24 Precautions/Activity Restrictions: Total Knee Replacement;Weight Bearing Restrictions Extremity With Weight Bearing Restricted: Left Lower Extremity Left Lower Extremity Weight Bearing Status: WBAT Current Hospital Course: s/p left TKR 03/16/2022 Reason for Hospital Admission: s/p left TKR Relevant Past Medical History: bilateral BHR; HTN; OAB; sleep apnea Response to Therapy Interventions: Good participation in activities Pt demonstrated good safety awareness and able to maintain precautions throughout session. Pt is safe to d/c home via family car. OT is recommending home, no additional equipment is recommended at this time. Pt is safe to d/c from an OT perspective. Occupational Therapy Problem List: Impaired Self Care Treatment Interventions: Education;Self Care / Home Management;Functional Mobility Training Home Environment Patient Lives With: Spouse (and daughter) Assistance Available: 24 Hour Entry To Home: Stairs Number Of Stairs Into Home: 2 Number Of Stairs To Bed/Bath: 1 flight Stairs to Bed/Bath with: Unilateral Rail Tub/Shower Type: walk-in shower with built in seat Laundry: main level ( will assist with task) Equipment Owned: Elevated Toilet Seat Prior Functional Level: Within Functional Limits Prior Functional Level Comments: IND with I/ADL's, +driving Patient Report: How do you spell justin? CURRENT FUNCTIONAL STATUS: Most recent performance Current Activities of Daily Living Assist Level Additional Information Feeding Set Up Grooming Set Up Bathing Upper Body Supervision Bathing Lower Body Supervision Dressing Upper Body Set Up Dressing Lower Body Supervision Toileting Supervision Instrumental Activities of Daily Living Assist Level Additional Information Meal/Beverage Prep Cleaning Laundry Medication Management with Strategies Functional Mobility Assist Level Additional Information Rolling Supine to Sit Sit to Supine Scooting Sit to Stand Supervision Stand to Sit Supervision Bed to Chair Toilet/Commode Shower Functional Mobility Supervision Wheeled Walker Blank hernandez indicate activity not attempted Learning/Educational Needs: Discharge Plan;Equipment;Functi onal Activities/Mobility;P keren of Care;Precautions;Reha bilitation Techniques and Procedures;Safety;Mindy f Care Goals for Plan of Care: Patient /Caregiver Goals: Go Home Goals: Patient will demonstrate progress with self-care, cognitive and/or coping needs identified to allow safe discharge to home with available support and/or physical assistance. Rehab Potential: Excellent Patient will be discontinued from Occupational Therapy when no further skilled needs are identified in this setting. PLAN: OT Frequency: 1 time per week Plan of Care developed with: Patient TREATMENT INTERVENTIONS: Therapy Diagnosis: Decreased activities of daily living (ADL) Interventions Provided: Evaluation;Self [facility] Management (45211) $ Evaluation-Low (59308) Billed Units: 1 unit Self [facility] Management (85626) Treatment Minutes: 25 $ Self [facility] Management (40634) Billed Units: 2 units Training AND education provided in: Activity adaption / compensatory strategies, Adaptive equipment / DME, Discharge planning, Expected functional level, Functional mobility involving ADLs, Home set-up/modifications, IADLs / Home management, Lower extremity dressing, Positioning, Precautions/restricti ons, Role of Occupational Therapy, Transfer - Car, Transfer - Sit to stand, Upper extremity dressing The following therapeutic skills were used: Cues for sequencing/proper technique for activity Timed Code Treatment (minutes): 25 Skilled Treatment Time (minutes): 40 Please see discipline specific clinical documentation flowsheet for complete details for this therapy evaluation/treatment. SIGNATURE: Zuri Gencer, OTR/L PATIENT NAME: Shimon Amato DATE: March 17, 2022 TIME: 10:40 AM [facility] THERAPY NT HNO ID: [id number] Author: Tiago Kearns, PT Service: Physical Therapy Author Type: Physical Therapist Type: Therapy (PT/OT/Speech/Resp) Filed: 03/17/2022 9:00 AM Note Text: Physical Therapy Treatment SERVICE DATE: 03/17/2022 SERVICE TIME: 813 to 852 ROOM: [place] [address] Recommended Discharge Disposition: Home PT Recommended Discharge Equipment: No equipment needs anticipated PT 6 Clicks Score: 24 Patient is doing well with mobility and ROM. Small amount of drainage noted on dressing. Patient's nurse notified. Patient is cleared for discharge home from a PT standpoint. Precautions/Activity Restrictions: Total Knee Replacement;Weight Bearing Restrictions Extremity With Weight Bearing Restricted: Left Lower Extremity Left Lower Extremity Weight Bearing Status: WBAT Current Hospital Course: s/p left TKR 03/16/2022 Reason for Hospital Admission: s/p left TKR Relevant Past Medical History: bilateral BHR; HTN; OAB; sleep apnea Response to Therapy Interventions: Good participation in activities Physical Therapy Problem List: Decreased Range Of Motion;Decreased Strength;Functional Mobility Impairment Treatment Interventions: Education;Strengtheni ng;Joint Mobility;Functional Mobility Training Home Environment Patient Lives With: Spouse (and daughter) Assistance Available: 24 Hour Entry To Home: Stairs Number Of Stairs Into Home: 2 Number Of Stairs To Bed/Bath: 1 flight Stairs to Bed/Bath with: Unilateral Rail Equipment Owned: Wheeled Walker;Standard Walker;Crutch(es) Prior Functional Level: Within Functional Limits Prior Functional Level Comments: Ambulated without assistive device Patient Report: Pt plans to return home later today. CURRENT FUNCTIONAL STATUS: Most recent performance Current Functional Mobility Assist Level Additional Information Rolling Supine to Sit Independent Sit to Supine Supervision Scooting Sit to Stand Supervision Stand to Sit Supervision Bed to Chair Toilet/Commode Gait Supervision Gait Device: Wheeled Walker Gait Distance (feet): >300 feet Stairs Supervision;Additiona l Information Stairs Device: Crutch(es) Number of Stairs: 3 Also negotiated 3 stairs with rail, crutch and supervision Curb Step Car Transfer Blank hernandez indicate activity not attempted Gait Deviations Left Lower Extremity: Heel strike during initial stance decreased;Push off during terminal stance decreased General Deviations/Observatio ns: Step length decreased;Sammie decreased -HLM: 8: Walk 250 feet or more Learning/Educational Needs: Discharge Plan;Equipment;Functi onal Activities/Mobility;P keren of Care;Precautions Goals for Plan of Care: Patient /Caregiver Goals: Go Home Goals: Patient will demonstrate progress with functional mobility to allow safe discharge to home with available support and/or physical assistance. Progress Toward Goals: Progressing as expected Rehab Potential: Good Patient will be discontinued from Physical Therapy when no further skilled needs are identified in this setting. PLAN: PT Frequency: Once daily Plan of Care developed with: Patient TREATMENT INTERVENTIONS: Therapy Diagnosis: Reduced mobility-other Interventions Provided: Therapeutic Exercise (73775);Therapeutic Activity (55322);Gait Training (25561) Therapeutic Exercise (83051) Treatment Minutes: 15 $ Therapeutic Exercise (74708) Billed Units: 1 unit Therapeutic Activity (94927) Treatment Minutes: 10 $ Therapeutic Activity (06692) Billed Units: 1 unit Gait Training (84210) Treatment Minutes: 14 $ Gait Training (34423) Billed Units: 1 unit Training AND education provided in: Anatomy and impact on deficits, Assistive device use, Bed mobility, Benefits of in-hospital mobility, Discharge planning, Exercise program, Gait pattern, reduction of deviations, Modalities, Pain Neuroscience, Positioning, Precautions/restricti ons, Stair navigation The following therapeutic skills were used: Activity dosing, Cues for sequencing/proper technique for activity, Cuing verbal, Facilitation of joint range of motion, Teach-back for education Timed Code Treatment (minutes): 39 Skilled Treatment Time (minutes): 39 Please see discipline specific clinical documentation flowsheet for complete details for this therapy evaluation/treatment. SIGNATURE: Tiago Kearns PT PATIENT NAME: Shimon Amato DATE: March 17, 2022 TIME: 8:59 AM [facility] ANES POSTPROC EVALon 022 ANES POSTPROC EVAL HNO ID: [id number] Author: Xavier Keating MD Service: Anesthesiology Author Type: Anesthesiologist Type: Anesthesia Postprocedure Evaluation Filed: 03/16/2022 10:41 AM Note Text: POST ANESTHESIA EVALUATION NOTE : 1950 Procedure Summary Date: 03/16/22 Room / Location: [place] [address] / OR Anesthesia Start: 0750 Anesthesia Stop: 1014 Procedure: ROBOTIC ASSISTED TOTAL KNEE ARTHROPLASTY (Left Knee) Diagnosis: Primary osteoarthritis of left knee (Primary osteoarthritis of left knee [M17.12]) Surgeons: Luis Holliday MD Responsible Provider: Yon Abbott MD Anesthesia Type: spinal ASA Status: 2 Anesthesia Type: spinal Last Vitals Vitals Value Taken Time BP 134/68 03/16/22 1037 Temp 03/16/22 1041 Pulse 77 03/16/22 1041 Resp 18 03/16/22 1015 SpO2 95 % 03/16/22 1041 Vitals shown include unvalidated device data. Post Anesthesia Patient Status Patient Evaluation: PACU. PACU/ICU Patient Condition: stable. Anticipated Disposition: inpatient floor planned admission. Neurological Status: aware and responsive. Pulmonary Status: breathing comfortably on room air Airway Control: returned to baseline unsupported. Cardiovascular Status: stable. Pain Management: clinically adequate - multimodal analgesia pain management approach Postoperative Hydration: acceptable. Intraoperative Events: no significant anesthesia events Post Operative Nausea/Vomiting Status: no significant post operative nausea or vomiting Anesthetic Observations: Recommendation: continue current plan of care. Anesthesia Observations No Documentation SIGNATURE: Xavier Keating MD PATIENT NAME: Shimon Amato DATE: March 16, 2022 TIME: 10:41 AM CSN: [id number] [facility] ANES PRE-OPon 03-16-2022 ANES PRE-OP HNO ID: [id number] Author: Xavier Keating MD Service: Anesthesiology Author Type: Anesthesiologist Type: Anesthesia Preprocedure Evaluation Filed: 03/16/2022 7:10 AM Note Text: ANESTHESIOLOGY DAY OF SURGERY NOTE : 1950 Procedure Information Date/Time: 03/16/22 0745 Procedure: ROBOTIC ASSISTED TOTAL KNEE ARTHROPLASTY (Left Knee) - [facility] Location: [address] OR Surgeons: Luis Holliday MD Estimated body mass index is 30.14 kg/m? as calculated from the following: Height as of 02/22/22: 180.3 cm (5' 11). Weight as of 02/22/22: 98 kg (216 lb 1.6 oz). Most recent hematocrit and potassium results: Hematocrit 47.5 02/22/2022 Potassium 4.4 02/22/2022 Relevant Problems ANESTHESIA (+) MYLENE (obstructive sleep apnea) CARDIO (+) Hypertension, essential PULMONARY (+) MYLENE (obstructive sleep apnea) I - PHYSICAL EVALUATION AIRWAY Patient intubated: No. Tracheostomy tube not present Mallampati: II. TM distance: >3 FB. Neck ROM: full. Mouth opening: adequate. Short neck: no. Thick neck: no DENTAL Normal dental observations. Dental findings: teeth intact. Additional exam findings: yes. CARDIOVASCULAR Normal cardiovascular observations. Rhythm: regular Rate: normal PULMONARY Normal pulmonary observations. Breath sounds clear to auscultation. II - ANESTHESIA PLAN ASA Score: 2 Anesthetic Plan: spinal The patient is not a current smoker. NPO Status: adequate Monitoring plan: Standard ASA. Anesthetic plan additional comments: Saphenous nerve block, for postoperative pain control R/B/A D/W patient and agreed to have done. . Postoperative analgesic plan: multimodal analgesia and peripheral nerve block. Informed Consent Anesthetic risks, benefits, alternatives, personnel and consent discussed: yes. Patient / Responsible Libertarian agrees to proceed: yes Patient / Surrogate agrees to blood products: Yes Significant changes in the patient condition since the History and Physical, not otherwise documented in primary service progress note: no. Potential Anesthesia issues that may suggest increased risk of complications or contraindication to planned procedure: none. Vitals Value Taken Time BP 154/90 03/16/22 0651 Pulse Resp 17 03/16/22 0651 Temp 36.4 ?C (97.5 ?F) 03/16/22 0651 SpO2 96 % 03/16/22 0651 Facility-Administered Medications as of 03/16/2022 Medication Dose Route Frequency - lidocaine 10 mg/mL (1 %) 1-2 mg injection (XYLOCAINE) 0.1-0.2 mL INTRADERMAL PRN - lactated ringers iv infusion 5-30 mL/hr INTRAVENOUS CONTINUOUS - ceFAZolin iv piggyback 2 g in D5W (iso-osmotic) 100 mL (ANCEF) 2 g INTRAVENOUS ONCE - [COMPLETED] acetaminophen 1,000 mg tab(s) (TYLENOL) 1,000 mg ORAL ONCE - [COMPLETED] celecoxib 200 mg cap(s) (CeleBREX) 200 mg ORAL ONCE - tranexamic acid iv piggyback 1000 mg in NaCl 0.7% 100 mL (CYKLOKAPRON) 1,000 mg INTRAVENOUS ONCE - tranexamic acid iv piggyback 1000 mg in NaCl 0.7% 100 mL (CYKLOKAPRON) 1,000 mg INTRAVENOUS ONCE Outpatient Medications as of 03/16/2022 Medication Sig - Gatorade Sports Drink Use as directed for Miralax / Gatorade Bowel Prep Kit (Patient not taking: Reported on 02/22/2022 ) - Bisacodyl (DULCOLAX) 5 mg tab Use as directed for Miralax / Gatorade Bowel Prep Kit (Patient not taking: Reported on 02/22/2022 ) - losartan (COZAAR) 50 mg tablet Take 1 tablet by mouth twice daily. (Patient not taking: Reported on 11/21/2021 ) - Cholecalciferol, Vitamin D3, (VITAMIN D) 25 mcg (1,000 unit) cap Take 1,000 Units by mouth once daily. (Patient not taking: Reported on 02/22/2022 ) - aspirin, enteric coated (ASPIRIN, ENTERIC COATED) 81 mg EC tablet Take 81 mg by mouth once daily. - calcium carbonate/vitamin D3 (CALCIUM 500 + D ORAL) Take by mouth. - multivitamin tablet Take 1 tablet by mouth once daily. I have interviewed and examined the patient. I have reviewed the medical record and/or the pre-anesthesia evaluation, pertinent labs, and test results. This contains updated information obtained within 48 hours of Surgery/Procedure. SIGNATURE: Xavier Keating MD PATIENT NAME: Shimon Amato DATE: March 16, 2022 TIME: 7:09 AM CSN: [id number] [facility] BRIEF OP NOTon 03-16-2022 BRIEF OP NOT HNO ID: [id number] Author: Jensen Elizabeth MD Service: Orthopaedic Surgery Author Type: Physician Type: Brief Op Note Filed: 03/16/2022 10:05 AM Note Text: BRIEF OP NOTE LOG ID: [id number] Surgery/Procedure Date: 03/16/2022 Incision/Procedure Start Time: 8:24 AM Incision Close/Procedure End Time: 10:00 AM Surgeon(s)/Procedural ist(s) and [employer] Furnace Operator Helper(s): Surgeon(s) and Role: * Luis Holliday MD - Primary * Jensen Elizabeth MD - Fellow Procedure(s): Left TKA Anesthesia: Spinal Findings: Advanced knee DJD Estimated Blood Loss: 100 mls Specimens: * No specimens in log * Complications: None Pre-Op Diagnosis: Primary osteoarthritis of left knee [M17.12] Post-Op Diagnosis: Same Post-Operative Plan: - Weightbearing: WBAT - Range of Motion: AROM as tolerated - Dressing: silver dressing x 7 days post-op - Drains: n/a - Jaeger: Per nursing protocol - Diet: regular - HLIV when tolerating adequate PO - DVT Prophylaxis: Aspirin 81mg BID x 4 wks, SCDs - Antibiotics: ancef gregoria-op - Cultures: n/a - Consults: PT/OT, care management, appreciate recs Dispo: Pending PT/OT recs, anticipated discharge POD1-2 Jensen Elizabeth MD [facility] CASE MGT [facility] 2021 CASE MGT [facility] HNO ID: [id number] Author: Faina Dwyer RN Service: Care Management Author Type: Registered Nurse Type: Care Mgt Initial Assessment Filed: 03/16/2022 5:24 PM Note Text: CARE MANAGEMENT PROGRESS NOTE SERVICE DATE: 03/16/2022 SERVICE TIME: 1700 LOS: 0 days [place] [facility] [place] Given: Yes Level of Care Discussed: Home Care Financial Disclosure Provided: Yes Financial Disclosure Comments: [facility] affiliate Provider list within the patient's requested geographic area shared with the patient/family: No Quality and resource use metrics shared with the patient that are relevant to the patient's goals of care and treatment preferences:: Yes Metrics: Functional Status;Potentially Preventable 30-day Post Discharge Readmission Rates;[facility] Caregiver is ready, willing and able to meet the patient's needs as recommended by the inter-professional team:: Yes Does the patient have an acute stroke diagnosis, or has the patient had a stroke during this admission?: No Needs Prior to Discharge: OT/PT Evaluation;Home Care Order;Facility or Agency Choices;Discharge Prescriptions Current Advance Directive: Health Care Power of Customer Support Assistant In Chart: Yes Up To Date and Valid: Yes Patient lives with his . HE has DME(Walker w/wo wheels). Home health care referral placed with several options. No other needs at this time. CM will remain available for any further needs. SIGNATURE: Faina Dwyer RN PATIENT NAME: Shimon Amato DATE: March 16, 2022 TIME: 5:23 PM PAGER/CONTACT #: [phone] [facility] HNO ID: [id number] Author: Luis Holliday MD Service: Orthopaedic Surgery Author Type: Physician Type: Discharge Summary Filed: 05/08/2022 12:19 PM Note Text: DISCHARGE SUMMARY PATIENT NAME: Shimon Amato ADMISSION DATE: 03/16/2022 DISCHARGE DATE: 03/17/2022 Attending Physician: Luis Holliday MD Code Status: Not on file Highest Readmission Risk Score: 6 The 30 day readmissions risk score is derived from an internally validated risk model which evaluates patient level characteristics, utilization history, medication orders and lab results up until the day of discharge. Patients with a score of 40 or above are considered highest risk for readmission. Specific patient level drivers will be listed at the bottom of the summary. Reason for Hospitalization: Left TKA Admitting Diagnosis: Knee Advanced Degenerative Joint Disease Discharge Diagnosis: Same as admitting Operations During Hospitalization: Left TKA Consultations: Physical Therapy Case Management Hospital Course: Please see perioperative HANDP for complete pre-admission details. The patient arrived at [facility] on the above date and where they were taken to the operating room for the above procedure. Please see operative note from that date for complete procedure details. The procedure went without complication and the patient was taken from the OR to the PACU followed by the RNF in stable condition. Once on the floor, their vital signs, pain, medication administration, and activity were all closely monitored and well controlled. Physical therapy, occupational therapy, and case management were consulted for in-house therapy and discharge planning. The patient was seen and examined multiple times each day and continued to improve on a daily basis. The patient tolerated PO intake well. The patient's pain was well controlled on PO medications. The patient was prepared for discharge and this was arranged with case management. The patient was then discharged to Home with Home Health in stable condition. Discharge Antibiotics: Prior to surgery the patient was treated with antibiotics and continued with antibiotics postoperatively Transfers: PACU and then to the hospital surgical floor when PACU criteria was met. DVT Prophylaxis: ASA 81mg BID Pain Control: Oral narcotics Complications: Continued throughout the hospital course without complications. Patient Condition @ Discharge: Stable Discharge Disposition: Home with Home Health Information Provided to Patient: Discharge Instructions Activity: Weight Bearing As Tolerated Diet: Resume pre-hospital diet Wound/Surgical Site Care: Silver dressing x 7 days post-op ALLERGIES Allergen Reactions Latex Rash Discharge Medications: Current Discharge Medication List START taking these medications oxyCODONE IR (ROXICODONE) 5 mg Take 5 mg by mouth every 6 hours as needed for pain. Qty: 42 tablet Refills: 0 Associated Diagnoses:Status post total knee replacement, left acetaminophen (TYLENOL) 1,000 mg Take 1,000 mg by mouth every 8 hours as needed for pain. Qty: 60 tablet Refills: 0 docusate sodium (COLACE) 100 mg Take 100 mg by mouth twice daily. Qty: 15 capsule Refills: 0 !! aspirin, enteric coated (ASPIRIN, ENTERIC COATED) 81 mg Take 81 mg by mouth twice daily. Qty: 56 tablet Refills: 0 ondansetron (ZOFRAN) 4 mg Take 4 mg by mouth every 8 hours as needed for nausea/vomiting. Qty: 5 tablet Refills: 0 !! - Potential duplicate medications found. Please discuss with provider. CONTINUE these medications which have NOT CHANGED peg 3350-Electrolytes (GOLYTELY) 236-22.74-6.74 -5.86 gram suspension Refer to printed prep instructions from your provider. Qty: 4000 mL Refills: 0 Associated Diagnoses:Colon cancer screening Gatorade Sports Drink Use as directed for Miralax / Gatorade Bowel Prep Kit Associated Diagnoses:Screening for colon cancer Bisacodyl (DULCOLAX) 5 mg tab Use as directed for Miralax / Gatorade Bowel Prep Kit Qty: 4 tablet Refills: 0 Associated Diagnoses:Screening for colon cancer losartan (COZAAR) 50 mg Take 50 mg by mouth twice daily. Qty: 30 tablet Refills: 2 Associated Diagnoses:Hypertensio n, essential Cholecalciferol (Vitamin D3) 1,000 Units Take 1,000 Units by mouth once daily. !! aspirin, enteric coated (ASPIRIN, ENTERIC COATED) 81 mg Take 81 mg by mouth once daily. calcium carbonate/vitamin D3 (CALCIUM 500 + D ORAL) Take by mouth. Associated Diagnoses:Preoperativ e examination; Primary osteoarthritis of right hip multivitamin 1 tablet Take 1 tablet by mouth once daily. !! - Potential duplicate medications found. Please discuss with provider. Future Appointments: Future Appointments Date Time Provider Department Center 04/07/2022 2:15 PM XR ORTHO [facility]AV [facility] 04/07/2022 2:50 PM JUANITO Patel REJ 07/18/2022 1:45 PM Luis Holliday MD [facility] RE[facility] The p (more content not included)... [facility] CONSULTon 03-16-2022 CONSULT HNO ID: [id number] Author: West Crane MD Service: General Internal Medicine Author Type: Physician Type: Consults Filed: 03/16/2022 8:27 PM Note Text: CONSULT NOTE - INTERNAL MEDICINE PATIENT NAME: Shimon Amato SERVICE DATE: 03/16/2022 SERVICE TIME: 8:25 PM ADMITTING PHYSICIAN: Luis Holliday MD CC: Post operative medical management; pt is s/p left TKR HPI: His pain is controlled well; he has been out of bed, tolerated activity well. He denies any recent fever or chills, skin infections or any upper respiratory infections. He denies any postop nausea or vomiting. He has been able to urinate, feels flow of urine is at baseline. He does not smoke. Alcohol use is about once a month PAST MEDICAL HISTORY Diagnosis Date - Benign non-nodular prostatic hyperplasia with lower urinary tract symptoms 09/15/2015 - Hypertension - OAB (overactive bladder) - Sleep apnea PAST SURGICAL HISTORY Procedure Laterality Date - APPENDECTOMY 1976 - APPENDECTOMY HX - ARTHROSCOPY KNEE DIAGNOSTIC W/WO SYNOVIAL BX SPX Left Arthroscopy, knee - COLONOSCOPY 12/19/2021 repeat in 10 years - JOINT REPLACEMENT HX - NEUROPLASTY AND/TRANSPOS MEDIAN NRV CARPAL TUNNE Right Carpal tunnel decomp - PAST SURGICAL HISTORY OF neuroma right hand - PAST SURGICAL HISTORY OF Left 10/15/2014 Arthroplasty left -[place] - PAST SURGICAL HISTORY OF Right 2000 wrist fusion - PAST SURGICAL HISTORY OF uvulectomy - PAST SURGICAL HISTORY OF Bilateral 08/2018 and 10/2014 CATR[place]ITA - TONSILLECTOMY HX Current Facility-Administered Medications Medication Dose Route Frequency - [START ON 03/17/2022] aspirin, enteric coated 81 mg tab(s) 81 mg ORAL BID - sodium chloride 0.9 % (flush) 3-5 mL (BD POSIFLUSH) 3-5 mL INTRAVENOUS q 12 H - NaCl 0.9% iv flush bag 20 mL INTRAVENOUS PRN - NaCl 0.9% iv infusion 75 mL/hr INTRAVENOUS CONTINUOUS - sodium chloride 0.9 % (flush) 2-10 mL (BD POSIFLUSH) 2-10 mL INTRAVENOUS q 12 H - ceFAZolin iv piggyback 2 g in D5W (iso-osmotic) 100 mL (ANCEF) 2 g INTRAVENOUS q 8 HR - acetaminophen 1,000 mg tab(s) (TYLENOL) 1,000 mg ORAL q 8 H - keTORolac 15 mg injection (TORADOL) 15 mg INTRAVENOUS q 6 H - oxyCODONE IR 5-10 mg tab(s) (ROXICODONE) 5-10 mg ORAL q 4 H PRN - ondansetron 4 mg tab(s) (ZOFRAN) 4 mg ORAL q 6 H PRN Or - ondansetron (PF) 4 mg injection (ZOFRAN) 4 mg INTRAVENOUS q 6 H PRN - [START ON 03/17/2022] magnesium hydroxide 400 mg/5 mL 30 mL (MOM) 30 mL ORAL DAILY PRN - [START ON 03/18/2022] bisacodyl EC 10 mg tab(s) (DULCOLAX) 10 mg ORAL DAILY - aluminum-magnesium hydroxide-simethicone 200-200-20 mg/5 mL 30 mL (MAALOX,MYLANTA,MAG-A L PLUS) 30 mL ORAL q 2 H PRN - [START ON 03/17/2022] ascorbic acid (vitamin C) 500 mg tab(s) (VITAMIN C) 500 mg ORAL BID w MEALS - [START ON 03/17/2022] docusate sodium 100 mg cap(s) (COLACE) 100 mg ORAL BID - senna 17.2 mg tab(s) (SENOKOT) 17.2 mg ORAL AT BEDTIME Social History Tobacco Use - Smoking status: Never Smoker - Smokeless tobacco: Never Used Vaping Use - Vaping Use: Never used Substance Use Topics - Alcohol use: Yes Alcohol/week: 5.0 standard drinks Types: 2 Glasses of Wine (5oz) per week Comment: few times a month - Drug use: No ALLERGIES Allergen Reactions - Latex Rash Family History Problem Relation Age of Onset - Stroke Mother - other (Other) Father hip fracture/blood clot, was on AC prior to that for ? heart - Arthritis Sister - No Known Problems Brother - Cancer Brother ROS: Patient denies any recent ENT or eye complaints, CP, palpitation, cough, wheeze, dizziness, dyspnea, abdominal pain, nausea, vomiting, urinary or bowel changes, rash or increased ankle swelling. Rest of the review of system is negative except as noted. OBJECTIVE PHYSICAL EXAM: Patient Vitals for the past 24 hrs: BP Temp Temp src Pulse Resp SpO2 Height 03/16/222016 151/89 36.5 ?C (97.7 ?F) Oral 83 17 96 % ? 03/16/22 1558 132/82 36.7 ?C (98.1 ?F) Oral 67 17 95 % ? 03/16/22 1121 ? 180.3 cm (5' 11) 03/16/22 1104 119/93 37.1 ?C (98.7 ?F) Oral 74 18 96 % ? 03/16/22 1045 134/68 ? ? 79 18 99 % ? 03/16/22 1030 129/64 ? ? 82 18 94 % ? 03/16/22 1015 104/67 36.4 ?C (97.5 ?F) ? 84 18 91 % ? 03/16/22 0651 154/90 36.4 ?C (97.5 ?F) Temporal ? 17 96 % ? Body mass index is 30.14 kg/m?. GENERAL: no distress. AANDOX3 SKIN: normal turgor HEENT: conjunctiva is pink, no icterus; m/m moist, no sinus tenderness NECK: no LN LUNGS: Lungs clear to auscultation, Fair air entry. CARDIAC: normal S1 and S2; no rubs or gallops ABDOMEN: Abdomen soft, non-tender. BS normal. EXTREMETIES: Bilateral normal ankle DF Problem List ACTIVE PROBLEM LIST Degeneration of Intervertebral Disc, Site Unspecified Pain in Joint, Pelvic Region and Thigh Urinary Incontinence Benign Non-Nodular Prostatic Hyperplasia With Lower Urinary Tract Symptoms Primary Osteoarthritis of Right Hip Hip Osteoa (more content not included)... [facility] OPERATIVE NOon 03-16-2022 OPERATIVE NO HNO ID: [id number] Author: Luis Holliday MD Service: Orthopaedic Surgery Author Type: Physician Type: Operative Report Filed: 03/16/2022 9:52 AM Note Text: OPERATIVE NOTE PATIENT NAME: Shimon Amato LOG ID: [id number] Surgery Date: 03/16/2022 Surgeon(s) and Open H[employer] Furnace Operator Helper(s): Surgeon(s) and Role: * Luis Holliday MD - Primary * Jensen Elizabeth MD - Fellow Physician [employer] Furn[employer] Operator Helper: Marco Antonio Jang PA-C There were no qualified residents available for this procedure. Please bill for Cj Elizabeth as speech language pathology assistant BMI: Estimated body mass index is 30.14 kg/m? as calculated from the following: Height as of 02/22/22: 180.3 cm (5' 11). Weight as of 02/22/22: 98 kg (216 lb 1.6 oz). Procedure(s): Procedure(s) (LRB): ROBOTIC ASSISTED TOTAL KNEE ARTHROPLASTY (Left) Anesthesia: Spinal Incision Start: 8:24 AM Incision Stop: 10:05 AM Operative Time: Total operative time from wheels in to wheels out, including anesthesia time was * Missing case tracking time(s) * Attestation: Novelty Twister Tender closed, under direct supervision and the remainder of the procedure was performed by the primary surgeon/proceduralist with assistance. Preop Diagnosis: Pre-Op Diagnosis Codes: * Primary osteoarthritis of left knee [M17.12] Postop Diagnosis: Same as Pre-Op Diagnosis Codes: * Primary osteoarthritis of left knee [M17.12] Findings: OA EBL: 150 cc Implants: * No implants in log * Problem List: ACTIVE PROBLEM LIST Degeneration of Intervertebral Disc, Site Unspecified Pain in Joint, Pelvic Region and Thigh Urinary Incontinence Benign Non-Nodular Prostatic Hyperplasia With Lower Urinary Tract Symptoms Primary Osteoarthritis of Right Hip Hip Osteoarthritis Status Post Bilateral Hip Replacements Post-Traumatic Osteoarthritis, Right Wrist Mylene (Obstructive Sleep Apnea) Hypertension, Essential Osteoarthritis of Left Knee OPERATIVE INDICATIONS: The patient has a long history of progressive left knee pain, arthritis, and degeneration. They has developed deformity in the left knee from predominantly medial wear and bone loss. Non-operative treatment and Physical Therapy have been attempted on the left, but have not improved or controlled the symptoms and pain that occurs during normal daily activities. Knee motion has also become limited and is restricting the patient. Left total knee arthroplasty was recommended. The risks, benefits and potential complications of the arthroplasty surgery were discussed with the patient in detail. Specific details of the surgical procedure, hospitalization, recovery, rehabilitation, and long-term precautions were also presented. Pre-operative teaching was provided. Implant/prosthesis selection was outlined, and the many options available were explained; the final choice will be made at the time of the procedure to match the anatomy and condition of the bone, ligaments, tendons, and muscles. The patient was seen by [facility] Medicine for pre-operative optimization, and risk assessment. Gregoria-operative blood management and the potential for blood transfusion were discussed with risks and options clearly outlined. Understanding of all topics was conveyed to me by the patient pre-operatively, and patient consent was given to proceed with the left total knee replacement. OPERATIVE PROCEDURE: The patient was identified and brought into the Operating Room by the anesthesia and nursing teams. Anesthesia was successfully performed. The patient was then positioned supine on the operating room table, andall bony prominences were padded. Intravenous antibiotic prophylaxis dosing was confirmed. A tourniquet was applied to the left upper thigh. A full knee exam was done after anesthesia was in full effect. The left leg was prepped and draped in the usual sterile fashion. A surgical time-out was performed immediately preceding the incision with all personnel in the operating room; the patient identity was again confirmed, the left knee-surgical site and extremity were identified and confirmed, X-rays were reviewed, and availability of the appropriate surgical equipment was established. The left knee was exsanguinated and exposed using a limited anterior-midline skin incision. Dissection was carried down through skin and subcutaneous tissue to the extensor mechanism with a scalpel. A median para-patellar arthrotomy was made to enter the knee space sharply. A large amount of normal appearing joint fluid was encountered and suctioned. The synovium was thickened, hypertrophic, and inflamed. A partial synovectomy was performed for exposure, and the medial and lateral gutters were cleared of scar and synovial reflections. The superficial medial collateral ligament was carefully elevated off osteophytes which were then removed with a rongeur and osteotome. Degenerative meniscal remnants were excised medially and laterally. The patellar s (more content not included)... [facility] THERAPY [facility] 03-16-2022 THERAPY NT HNO ID: [id number] Author: Tiago Kearns PT Service: Physical Therapy Author Type: Physical Therapist Type: Therapy (PT/OT/Speech/Resp) Filed: 03/16/2022 2:25 PM Note Text: Physical Therapy Evaluation SERVICE DATE: 03/16/2022 SERVICE TIME: 1330 to 1417 ROOM: [place] [address] Recommended Discharge Disposition: Home PT Recommended Discharge Equipment: No equipment needs anticipated PT 6 Clicks Score: 24 Patient is doing well with mobility and ROM. Anticipate home tomorrow. Precautions/Activity Restrictions: Total Knee Replacement;Weight Bearing Restrictions Extremity With Weight Bearing Restricted: Left Lower Extremity Left Lower Extremity Weight Bearing Status: WBAT Current Hospital Course: s/p left TKR 03/16/2022 Reason for Hospital Admission: s/p left TKR Relevant Past Medical History: bilateral BHR; HTN; OAB; sleep apnea Response to Therapy Interventions: Good participation in activities Continue skilled needs due to: Functional mobility/skill impairments Physical Therapy Problem List: Decreased Range Of Motion;Decreased Strength;Functional Mobility Impairment Treatment Interventions: Education;Strengtheni ng;Joint Mobility;Functional Mobility Training Plan for next visit: Gait training, Exercise instruction/handout, Stairs training Home Environment Patient Lives With: Spouse (and daughter) Assistance Available: 24 Hour Entry To Home: Stairs Number Of Stairs Into Home: 2 Number Of Stairs To Bed/Bath: 1 flight Stairs to Bed/Bath with: Unilateral Rail Equipment Owned: Wheeled Walker;Standard Walker;Crutch(es) Prior Functional Level: Within Functional Limits Prior Functional Level Comments: Ambulated without assistive device Patient Report: Pt plans to return home tomorrow. CURRENT FUNCTIONAL STATUS: Most recent performance Current Functional Mobility Assist Level Additional Information Rolling Supine to Sit Supervision Sit to Supine Supervision Scooting Sit to Stand Supervision Stand to Sit Supervision Bed to Chair Toilet/Commode Gait Supervision Gait Device: Wheeled Walker Gait Distance (feet): 250 feet Stairs Curb Step Car Transfer Blank hernandez indicate activity not attempted General Deviations/Observatio ns: Sammie decreased JH-HLM: 8: Walk 250 feet or more Learning/Educational Needs: Discharge Plan;Equipment;Functi onal Activities/Mobility;P keren of Care;Precautions Goals for Plan of Care: Patient /Caregiver Goals: Go Home Goals: Patient will demonstrate progress with functional mobility to allow safe discharge to home with available support and/or physical assistance. Rehab Potential: Good Patient will be discontinued from Physical Therapy when no further skilled needs are identified in this setting. PLAN: PT Frequency: Once daily Plan of Care developed with: Patient TREATMENT INTERVENTIONS: Therapy Diagnosis: Reduced mobility-other Interventions Provided: Evaluation;Therapeuti c Exercise (68919);Gait Training (08518) $ Evaluation-Low (18930) Billed Units: 1 unit Therapeutic Exercise (89295) Treatment Minutes: 15 $ Therapeutic Exercise (52602) Billed Units: 1 unit Gait Training (73932) Treatment Minutes: 10 $ Gait Training (05672) Billed Units: 1 unit Training AND education provided in: Anatomy and impact on deficits, Assistive device use, Bed mobility, Benefits of in-hospital mobility, Discharge planning, Exercise program, Gait pattern, reduction of deviations, Handout issued, Modalities, Pain Neuroscience, Positioning, Precautions/restricti ons The following therapeutic skills were used: Activity dosing, Cues for sequencing/proper technique for activity, Cuing tactile, Cuing verbal, Cuing visual, Facilitation of joint range of motion, Teach-back for education Timed Code Treatment (minutes): 25 Skilled Treatment Time (minutes): 47 Please see discipline specific clinical documentation flowsheet for complete details for this therapy evaluation/treatment. SIGNATURE: Tiago Kearns, PT PATIENT NAME: Shimon Amato DATE: March 16, 2022 TIME: 2:24 PM [facility] CT KNEE WO IVCON LTon 2021 CT KNEE WO IVCON LT * * *Final Report* * * DATE OF EXAM: Feb 24 2022 9:06AM LOIDA 0083 - CT KNEE WO IVCON LT / PROCEDURE REASON: multiple diagnoses * * * * Physician Interpretation * * * * EXAMINATION: CT KNEE WO IVCON LT CLINICAL HISTORY: 71 years old Male with Primary osteoarthritis of left knee Arthritis of knee. Preop testing TECHNIQUE: CT LEFT knee without contrast Emeterio protocol, knee 1 mm axial slices, hip and ankle 3 mm axial slices obtained for the purposes of presurgical planning CT Radiation dose: Integrated Dose-length product (DLP) for this visit = 1788 mGy*cm. CT Dose Reduction Employed: Automated exposure control(AEC) and iterative recon COMPARISON: Radiographs 10/05/2021 RESULT: Limited CT images for the purposes of presurgical planning. Pelt Inspector: Bilateral resurfacing hip arthroplasties. Left hip: Resurfacing hip arthroplasty with associated streak artifact and small amount of heterotopic ossification. Fatty atrophy of the visualized anterior aspect LEFT gluteus medius muscle. Colonic diverticulosis. Fat-containing LEFT inguinal hernia. Left knee: Osteoarthritis, severe in the medial compartment with intra-articular bodies in the anterior and posterior intercondylar notch. Small joint effusion. Moderate size Macias's cyst with intra-articular bodies. Arterial atherosclerotic calcifications. Focal areas of fatty replacement within the proximal soleus muscle. Left ankle: No significant finding. IMPRESSION: Limited CT images for the purposes of presurgical planning. Umbrella Mender: PSCElisabeth Transcribe Date/Time: Feb 24 2022 9:18A Dictated by : ROSA DE LEON DO This examination was interpreted and the report reviewed and electronically signed by: ROSA DE LEON DO on Feb 24 2022 9:24AM EST [id number] [facility] No Panel Informationon 02-24 [facility] Bacteria Ur Culton 2 Bacteria identified Cx Nom (U) CULTURE, URINE: No growth (<1,000 CFU/ml) [facility] Comment on above: Performed By: #### 6 30-4 ####[facility] LABCLIA [id number] [address] [place] CBC W Auto Differential pane l (Bld)on 02-22-2022 Basophils (Bld) [#/Vol] 0.04 10*3/uL Normal <0.11 [facility] Comment on above: Order Comment: Speci men Type: BLOOD SPECIMENOrdering Facility: [facility] Address: [address] [address] Performed By: #### 5 7021-8 ####[facility]ATORY[facility] [id number] [address] [place] [address] [place] Basophils/100 WBC (Bld) 0.6 % [facility] Comment on above: Order Comment: Speci men Type: BLOOD SPECIMENOrdering Facility: [facility] Address: [address] [address] Performed By: #### 5 7021-8 ####[facility]ORATORYCLIA [id number] [address] [place], [place] [id number] [place] Differential cell count method Nom (Bld) Auto Normal [facility] Comment on above: Order Comment: Speci men Type: BLOOD SPECIMENOrdering Facility: [facility] Address: [address] [place] [address] Performed By: #### 5 7021-8 ####[facility]ATORYCLIA [id number] [address] [place] [address] [place] Eosinophils (Bld) [#/Vol] 0.11 10*3/uL Normal <0.46 [facility] Comment on above: Order Comment: Speci men Type: BLOOD SPECIMENOrdering Facility: [facility] Address: [address] [place] [address] Performed By: #### 5 7021-8 ####[facility]ATORYCLIA [id number] [address] [place] [address] [place] Eosinophils/100 WBC (Bld) 1.6 % Normal [facility] Comment on above: Order Comment: Speci men Type: BLOOD SPECIMENOrdering Facility: [facility] Address: [address] [place] [address] Performed By: #### 5 7021-8 ####[facility]ORYCLIA [id number] [address] [place] [address] [place] Erythrocyte distribution width (RBC) [Ratio] 12.9 % Normal 11.5-15.0 [facility] [facility] Comment on above: Order Comment: Speci men Type: BLOOD SPECIMENOrdering Facility: [facility] Address: [address] [place] [address] Performed By: #### 5 7021-8 ####ISLAM LABORATORYCLIA [id number] [address] [place], [place] [id number] [place] Hematocrit (Bld) [Volume fraction] 47.5 % Normal 39.0-51.0 [facility] Comment on above: Order Comment: Speci men Type: BLOOD SPECIMENOrdering Facility: [facility] Address: [address] [place] [address] Performed By: #### 5 7021-8 ####ISLAM LABORATORYCLIA [id number] [address] [place] [address] Hemoglobin (Bld) [Mass/Vol] 15.1 g/dL Normal 13.0-17.0 [facility] Comment on above: Order Comment: Speci men Type: BLOOD SPECIMENOrdering Facility: [facility] Address: [address] [place] [address] Performed By: #### 5 7021-8 ####ISLAM LABORATORYCLIA [id number] [address] IMMATURE GRAN % 0.3 % Normal [facility] Comment on above: Order Comment: Speci men Type: BLOOD SPECIMENOrdering Facility: [facility] Address: [address] [place] [address] Performed By: #### 5 7021-8 ####ISLAM LABORATORYCLIA [id number] [address] IMMATURE GRAN ABS <0.03 Normal <0.10 [facility] Comment on above: Order Comment: Speci men Type: BLOOD SPECIMENOrdering Facility: [facility] Address: [address] [place] [address] Performed By: #### 5 7021-8 ####ISLAM LABORATORYCLIA [id number] [place] [address] [place] Lymphocytes (Bld) [#/Vol] 1.72 10*3/uL Normal 1.00-4.00 [facility] Comment on above: Order Comment: Speci men Type: BLOOD SPECIMENOrdering Facility: [facility] Address: [address] [place] [address] Performed By: #### 5 7021-8 ####ISLAM LABORATORYCLIA [id number] [place] [address] [place] Lymphocytes/100 WBC (Bld) 25.2 % Normal [facility] Comment on above: Order Comment: Speci men Type: BLOOD SPECIMENOrdering Facility: [facility] Address: [address] [place] [address] Performed By: #### 5 7021-8 ####ISLAM LABORATORYCLIA [id number] [address] [place] MCH (RBC) [Entitic mass] 29.0 pg Normal 26.0-34.0 [facility] Comment on above: Order Comment: Speci men Type: BLOOD SPECIMENOrdering Facility: [facility] Address: [address] [place] [address] Performed By: #### 5 7021-8 ####ISLAM LABORATORYCLIA [id number] [address] STATES [facility] MCHC (RBC) [Mass/Vol] 31.8 g/dL Normal 30.5-36.0 [facility] Comment on above: Order Comment: Speci men Type: BLOOD SPECIMENOrdering Facility: [facility] Address: [address] [place] [address] Performed By: #### 5 7021-8 ####ISLAM LABORATORYCLIA [id number] [address] [place] MCV (RBC) [Entitic vol] 91.3 fL Normal 80.0-100.0 [facility] Comment on above: Order Comment: Speci men Type: BLOOD SPECIMENOrdering Facility: [facility] Address: [address] [place] [address] Performed By: #### 5 7021-8 ####ISLAM LABORATORYCLIA [id number] [place] [address] [place] Monocytes (Bld) [#/Vol] 0.76 10*3/uL Normal <0.87 [facility] Comment on above: Order Comment: Speci men Type: BLOOD SPECIMENOrdering Facility: [facility] Address: [facility]0 [address] Performed By: #### 5 7021-8 ####ISLAM LABORATORYCLIA [id number] [address] [place], [place] [address] [place] Monocytes/100 WBC (Bld) 11.1 % Normal [facility] Comment on above: Order Comment: Speci men Type: BLOOD SPECIMENOrdering Facility: [facility] Address: [address] [place], [place] [address] Performed By: #### 5 7021-8 ####ISLAM LABORATORYCLIA [id number] [place] [address] [place] Neutrophils (Bld) [#/Vol] 4.17 10*3/uL Normal 1.45-7.50 [facility] Comment on above: Order Comment: Speci men Type: BLOOD SPECIMENOrdering Facility: [facility] Address: [address] [place], [place] [address] Performed By: #### 5 7021-8 ####ISLAM LABORATORYCLIA [id number] [place] [address] [place] Neutrophils/100 WBC (Bld) 61.2 % Normal [facility] Comment on above: Order Comment: Speci men Type: BLOOD SPECIMENOrdering Facility: [facility] Address: [address] Performed By: #### 5 7021-8 ####ISLAM LABORATORYCLIA [id number] [place] [address] [place] Nucleated RBC (Bld) [#/Vol] 10*3/uL Normal <0.01 [facility] Comment on above: Order Comment: Speci men Type: BLOOD SPECIMENOrdering Facility: [facility] Address: [address] [place], [place] [address] Performed By: #### 5 7021-8 ####ISLAM LABORATORYCLIA [id number] [place] [address] [place] Nucleated RBC/100 WBC (Bld) [Ratio] 0.0 /100 WBC Normal [facility] Comment on above: Order Comment: Speci men Type: BLOOD SPECIMENOrdering Facility: [facility] Address: [address] [place] [address] Performed By: #### 5 7021-8 ####ISLAM LABORATORYCLIA [id number] [place] [address] [place] Platelet mean volume (Bld) [Entitic vol] 10.2 fL Normal 9.0-12.7 [facility] Comment on above: Order Comment: Speci men Type: BLOOD SPECIMENOrdering Facility: [facility] Address: [address] [place] [address] Performed By: #### 5 7021-8 ####ISLAM LABORATORYCLIA [id number] [address] [place] Platelets (Bld) [#/Vol] 250 10*3/uL Normal 150-400 [facility] Comment on above: Order Comment: Speci men Type: BLOOD SPECIMENOrdering Facility: [facility] Address: [address] [place] [address] Performed By: #### 5 7021-8 ####ISLAM LABORATORYCLIA [id number] [address] [place] RBC (Bld) [#/Vol] 5.20 10*6/uL Normal 4.20-6.00 [facility] Comment on above: Order Comment: Speci men Type: BLOOD SPECIMENOrdering Facility: [facility] Address: [address] [place] [address] Performed By: #### 5 7021-8 ####ISLAM LABORATORYCLIA [id number] [place] [address] [facility] [place] WBC (Bld) [#/Vol] 6.82 10*3/uL Normal 3.70-11.00 [facility] Comment on above: Order Comment: Speci men Type: BLOOD SPECIMENOrdering Facility: [facility] Address: [address] [place] [address] Performed By: #### 5 7021-8 ####ISLAM LABORATORYCLIA [id number] [address] Abs Immature Gran <0.03 <0.10 k/uL [facility] Basophils (Bld) [#/Vol] 0.04 10*3/uL <0.11 k/uL [facility] Basophils/100 WBC (Bld) 0.6 % [facility] Differential cell count method Nom (Bld) Auto [facility] Eosinophils (Bld) [#/Vol] 0.11 10*3/uL <0.46 k/uL [facility] Eosinophils/100 WBC (Bld) 1.6 % [facility] Erythrocyte distribution width (RBC) [Ratio] 12.9 % 11.5 - 15.0 % [facility] Hematocrit (Bld) [Volume fraction] 47.5 % 39.0 - 51.0 % [facility] ic Hemoglobin (Bld) [Mass/Vol] 15.1 g/dL 13.0 - 17.0 g/dL [facility] Immature Gran % 0.3 % [facility] Lymphocytes (Bld) [#/Vol] 1.72 10*3/uL 1.00 - 4.00 k/uL [facility] Lymphocytes/100 WBC (Bld) 25.2 % [facility] MCH (RBC) [Entitic mass] 29.0 pg 26.0 - 34.0 pg [facility] MCHC (RBC) [Mass/Vol] 31.8 g/dL 30.5 - 36.0 g/dL [facility] MCV (RBC) [Entitic vol] 91.3 fL 80.0 - 100.0 fL [facility] Monocytes (Bld) [#/Vol] 0.76 10*3/uL <0.87 k/uL [facility] Monocytes/100 WBC (Bld) 11.1 % [facility] Neutrophils (Bld) [#/Vol] 4.17 10*3/uL 1.45 - 7.50 k/uL [facility] Neutrophils/100 WBC (Bld) 61.2 % [facility] Nucleated RBC (Bld) [#/Vol] 10*3/uL <0.01 k/uL [facility] Nucleated RBC/100 WBC (Bld) [Ratio] 0.0 /[address] [facility] ic Platelet mean volume (Bld) [Entitic vol] 10.2 fL 9.0 - 12.7 [facility]L [facility] Platelets (Bld) [#/Vol] 250 10*3/uL 150 - 400 k/uL [facility] RBC (Bld) [#/Vol] 5.20 10*6/uL 4.20 - 6.0 0 m/uL [facility] WBC (Bld) [#/Vol] 6.82 10*3/uL 3.70 - 11. 00 k/uL [facility] Comprehensive metabolic 2000 panelon 02-22-2022 Albumin [Mass/Vol] 4.2 g/dL Normal 3.9-4.9 [facility] Comment on above: Order Comment: Speci men Type: BLOOD SPECIMENOrdering Facility: [facility] Address: [address] [place] [address] Performed By: #### 2 4323-8 ####ISLAM LABORATORYCLIA [id number] [address] ALP [Catalytic activity/Vol] 70 U/L Normal 38-113 [facility] Comment on above: Order Comment: Speci men Type: BLOOD SPECIMENOrdering Facility: [facility] Address: [address] [place] [address] Performed By: #### 2 4323-8 ####ISLAM LABORATORYCLIA [id number] [address] ALT [Catalytic activity/Vol] 24 U/L Normal 10-54 [facility] Comment on above: Order Comment: Speci men Type: BLOOD SPECIMENOrdering Facility: [facility] Address: [address] Performed By: #### 2 4323-8 ####ISLAM LABORATORYCLIA [id number] [address] [place] [address], [facility]13 [place] Anion gap [Moles/Vol] 10 mmol/L Normal 9-18 [facility] Comment on above: Order Comment: Speci men Type: BLOOD SPECIMENOrdering Facility: [facility] Address: [address] [place] [address] Performed By: #### 2 4323-8 ####ISLAM LABORATORYCLIA [id number] [address] [place] [address], [facility]13 [place] AST [Catalytic activity/Vol] 27 U/L Normal 14-40 [facility] Comment on above: Order Comment: Speci men Type: BLOOD SPECIMENOrdering Facility: [facility] Address: [address] [place] [address] Performed By: #### 2 4323-8 ####ISLAM LABORATORYCLIA [id number] [place] [id number] [place] Bilirubin [Mass/Vol] 0.6 mg/dL Normal 0.2-1.3 [facility] Comment on above: Order Comment: Speci men Type: BLOOD SPECIMENOrdering Facility: [facility] Address: [address] [place] [address] Performed By: #### 2 4323-8 ####ISLAM LABORATORYCLIA [id number] [place] [id number] [place] Calcium [Mass/Vol] 9.1 mg/dL Normal 8.5-10.2 [facility] Comment on above: Order Comment: Speci men Type: BLOOD SPECIMENOrdering Facility: [facility] Address: [address] [place] [address] Performed By: #### 2 4323-8 ####ISLAM LABORATORYCLIA [id number] [place] [id number] [place] Chloride [Moles/Vol] 105 mmol/L Normal 97-105 [facility] Comment on above: Order Comment: Speci men Type: BLOOD SPECIMENOrdering Facility: [facility] Address: [address] [place] [address] Performed By: #### 2 4323-8 ####ISLAM LABORATORYCLIA [id number] [place] [address] [place] CO2 [Moles/Vol] 24 mmol/L Normal 22-30 [facility] Comment on above: Order Comment: Speci men Type: BLOOD SPECIMENOrdering Facility: [facility] Address: [address] [place] [address] Performed By: #### 2 4323-8 ####ISLAM LABORATORYCLIA [id number] [address] STATES OF [facility] Creatinine [Mass/Vol] 0.82 mg/dL Normal 0.73-1.22 [facility] Comment on above: Order Comment: Speci men Type: BLOOD SPECIMENOrdering Facility: [facility] Address: [address] [place] [address] Performed By: #### 2 4323-8 ####ISLAM LABORATORYCLIA [id number] [address] ESTIMATED GLOMERULAR FILTRATION RATE 93 mL/min/1.73m??? Normal >=60 [facility] Comment on above: Order Comment: Speci men Type: BLOOD SPECIMENOrdering Facility: [facility] Address: [address] [place] [address] Result Comment: Lavonne mated Glomerular Filtration Rate (eGFR) is calculated using the 2020 CKD-EPI creatinine equation. This equation utilizes serum creatinine, sex, and age as parameters. The creatinine assay has traceable calibration to isotope dilution-mass spectrometry. Refer to KDIGO guidelines for clinical interpretation. In patients with unstable renal function, e.g. those with acute kidney injury, the eGFR may not accurately reflect actual GFR. Performed By: #### 2 4323-8 ####ISLAM LABORATORYCLIA [id number] [address] [place] [address] [place] Glucose [Mass/Vol] 110 mg/dL High 74-99 [facility] Comment on above: Order Comment: Speci men Type: BLOOD SPECIMENOrdering Facility: [facility] Address: [address] [place] [address] Result Comment: The [place] Diabetes Association (ADA) provides guidance for cutoff values for fasting glucose and random glucose. The ADA defines fasting as no caloric intake for at least 8 hours. Fasting plasma glucose results between 100 to 125 mg/dL indicate increased risk for diabetes (prediabetes). Fasting plasma glucose results greater than or equal to 126 mg/dL meet the criteria for diagnosis of diabetes. In the absence of unequivocal hyperglycemia, results should be confirmed by repeat testing. In a patient with classic symptoms of hyperglycemia or hyperglycemic crisis, random plasma glucose results greater than or equal to 200 mg/dL meet the criteria for diagnosis of diabetes. Reference: Standards of Medical Care in Diabetes 2016, [place] Diabetes Association. Diabetes Care. 2016.39(Suppl 1). Performed By: #### 2 4323-8 ####ISLAM LABORATORYCLIA [id number] [place] [id number] [place] Potassium [Moles/Vol] 4.4 mmol/L Normal 3.7-5.1 [facility] Comment on above: Order Comment: Speci men Type: BLOOD SPECIMENOrdering Facility: [facility] Address: [address] [place] [address] Performed By: #### 2 4323-8 ####ISLAM LABORATORYCLIA [id number] [place] [address] [place] Protein [Mass/Vol] 6.9 g/dL Normal 6.3-8.0 [facility] Comment on above: Order Comment: Speci men Type: BLOOD SPECIMENOrdering Facility: [facility] Address: [address] [place] [address] Performed By: #### 2 4323-8 ####ISLAM LABORATORYCLIA [id number] [place] [id number] [place] Sodium [Moles/Vol] 139 mmol/L Normal 136-144 [facility] Comment on above: Order Comment: Speci men Type: BLOOD SPECIMENOrdering Facility: [facility] Address: [facility] [place] [id number] Performed By: #### 2 4323-8 ####ISLAM LABORATORYCLIA [id number] [address] [place] Urea nitrogen [Mass/Vol] 19 mg/dL Normal 9-24 [facility] Comment on above: Order Comment: Speci men Type: BLOOD SPECIMENOrdering Facility: [facility] Address: [address] [place], [place] [address] [address] Performed By: #### 2 4323-8 ####ISLAM LABORATORYCLIA [id number] [address] Albumin [Mass/Vol] 4.2 g/dL 3.9 - 4.9 g/dL [facility] ALP [Catalytic activity/Vol] 70 U/L 38 - 113 U/L [facility] ALT [Catalytic activity/Vol] 24 U/L 10 - 54 U/L [facility] Anion gap [Moles/Vol] 10 mmol/L 9 - 18 mmol/L [facility] AST [Catalytic activity/Vol] 27 U/L 14 - 40 U/L [facility] Bilirubin [Mass/Vol] 0.6 mg/dL 0.2 - 1 .3 mg/dL [facility] Calcium [Mass/Vol] 9.1 mg/dL 8.5 - 10. 2 mg/dL [facility] Chloride [Moles/Vol] 105 mmol/L 97 - 10 5 mmol/L [facility] CO2 [Moles/Vol] 24 mmol/L 22 - 30 mmol/L [facility] Creatinine [Mass/Vol] 0.82 mg/dL 0.73 - 1.22 mg/dL [facility] Estimated Glomerular Filtration Rate 93 mL/min/1.73m >=60 mL/min/1.73m [facility] Glucose [Mass/Vol] 110 mg/dL High 74 - 99 mg/dL [facility] Potassium [Moles/Vol] 4.4 mmol/L 3.7 - 5.1 mmol/L [facility] Protein [Mass/Vol] 6.9 g/dL 6.3 - 8.0 g/dL [facility] Sodium [Moles/Vol] 139 mmol/L 136 - 144 mmol/L [facility] Urea nitrogen [Mass/Vol] 19 mg/dL 9 - 24 mg/dL [facility] TYPE AND SCREEN,30 DAYon ABO A [facility] HIstorical Ab Scr Status Negative [facility] Rh Nom (Bld) Positive [facility] ABO A [facility] Comment on above: Order Comment: Speci men Type: BLOOD SPECIMENOrdering Facility: [facility] Address: [address] [place] [address] Performed By: #### T SCR30 ####ISLAM BLOOD BANKCLIA [id number] [address] [place] [address] HISTORICAL AB SCR STATUS Negative [facility] Comment on above: Order Comment: Speci men Type: BLOOD SPECIMENOrdering Facility: [facility] Address: [address] [place] [address] Performed By: #### T SCR30 ####ISLAM BLOOD BANKCLIA [id number] [address] Rh Nom (Bld) Positive [facility] Comment on above: Order Comment: Speci men Type: BLOOD SPECIMENOrdering Facility: [facility] Address: [address] [place] [address] Performed By: #### T SCR30 ####ISLAM BLOOD BANKCLIA [id number] [address] Urinalysis complete panel (U )on 02-22-2022 Bilirubin Ql (U) Negative Normal [facility] Comment on above: Order Comment: Speci men Type: URINE SPECIMENOrdering Facility: [facility] Address: [address] [place] [address] Performed By: #### 2 4356-8 ####ISLAM LABORATORYCLIA [id number] [address] [place] [address], [place] [address] [place] Clarity (Unsp spec) Clear Normal Clear [facility] Comment on above: Order Comment: Speci men Type: URINE SPECIMENOrdering Facility: [facility] Address: [address] Performed By: #### 2 4356-8 ####ISLAM LABORATORYCLIA [id number] [address] [place], [place] [id number] [place] Color (U) Yellow Normal Yellow [facility] Comment on above: Order Comment: Speci men Type: URINE SPECIMENOrdering Facility: [facility] Address: [facility]0 [address] Performed By: #### 2 4356-8 ####ISLAM LABORATORYCLIA [id number] [address] [place], [place] [address] [place] Glucose Test strip (U) [Mass/Vol] Negative Normal Negative [facility] Comment on above: Order Comment: Speci men Type: URINE SPECIMENOrdering Facility: [facility] Address: [address] Performed By: #### 2 4356-8 ####ISLAM LABORATORYCLIA [id number] [address] [place], [place] [address] [place] Hemoglobin Ql (U) Negative Normal Negative [facility] Comment on above: Order Comment: Speci men Type: URINE SPECIMENOrdering Facility: [facility] Address: [address] [place] [address] Performed By: #### 2 4356-8 ####ISLAM LABORATORYCLIA [id number] [address] [place], [place] [address] [place] Ketones Ql (U) Negative Normal Negative [facility] Comment on above: Order Comment: Speci men Type: URINE SPECIMENOrdering Facility: [facility] Address: [facility]0 [address] Performed By: #### 2 4356-8 ####ISLAM LABORATORYCLIA [id number] [address] [place], [place] [id number] [place] Leukocyte esterase Test strip Ql (U) Negative Normal Negative [facility] Comment on above: Order Comment: Speci men Type: URINE SPECIMENOrdering Facility: [facility] Address: [address] [place] [address] Performed By: #### 2 4356-8 ####ISLAM LABORATORYCLIA [id number] [place] [id number] [place] Nitrite Ql (U) Negative Normal Negative [facility] Comment on above: Order Comment: Speci men Type: URINE SPECIMENOrdering Facility: [facility] Address: [address] [place] [address] Performed By: #### 2 4356-8 ####ISLAM LABORATORYCLIA [id number] [place] [address] [place] pH (U) 6.0 [pH] Normal 5.0-8.0 [facility] Comment on above: Order Comment: Speci men Type: URINE SPECIMENOrdering Facility: [facility] Address: [address] [place] [address] Performed By: #### 2 4356-8 ####ISLAM LABORATORYCLIA [id number] [address] [place] [address] [place] Protein (U) [Mass/Vol] Negative Normal Negative [facility] Comment on above: Order Comment: Speci men Type: URINE SPECIMENOrdering Facility: [facility] Address: [address] [place] [address] Performed By: #### 2 4356-8 ####ISLAM LABORATORYCLIA [id number] [place] [id number] [place] RBC LM.HPF (Urine sed) [#/Area] 0-3 /HPF Normal 0-3 /HPF [facility] Comment on above: Order Comment: Speci men Type: URINE SPECIMENOrdering Facility: [facility] Address: [address] [place] [address] Performed By: #### 2 4356-8 ####ISLAM LABORATORYCLIA [id number] [place] [address] [place] Specific gravity (U) [Rel density] 1.025 Normal 1.005-1.030 [facility] Comment on above: Order Comment: Speci men Type: URINE SPECIMENOrdering Facility: [facility] Address: [address] [place] [address] Performed By: #### 2 4356-8 ####ISLAM LABORATORYCLIA [id number] [place] [address] [place] Urobilinogen Ql (U) 0.2 EU/dL Normal 0.2-1.0 EU/dL [facility] Comment on above: Order Comment: Speci men Type: URINE SPECIMENOrdering Facility: [facility] Address: [address] [place] [address] Performed By: #### 2 4356-8 ####ISLAM LABORATORYCLIA [id number] [place] [address] [place] WBC LM.HPF (Urine sed) [#/Area] 0-5 /HPF Normal 0-5 /HPF [facility] Comment on above: Order Comment: Speci men Type: URINE SPECIMENOrdering Facility: [facility] Address: [address] [place] [address] Performed By: #### 2 4356-8 ####ISLAM LABORATORYCLIA [id number] [place] [address] [place] Bilirubin Ql (U) Negative Negative [facility] Clarity (Unsp spec) Clear Clear [facility] Color (U) Yellow Yellow [facility] ic Glucose Test strip (U) [Mass/Vol] Negative Negative [facility] Hemoglobin Ql (U) Negative Negative [facility] Ketones Ql (U) Negative Negative [facility] Leukocyte esterase Test strip Ql (U) Negative Negative [facility] ic Nitrite Ql (U) Negative Negative [facility] pH (U) 6.0 [pH] 5.0 - 8.[address] [facility] ic Protein (U) [Mass/Vol] Negative Negative [facility] RBC LM.HPF (Urine sed) [#/Area] 0-3 /HPF 0-3 /HPF [facility] Specific gravity (U) [Rel density] 1.025 1.005 - 1.030 [facility] Urobilinogen Ql (U) 0.2 EU/dL 0.2-1.0 EU/dL [facility] WBC LM.HPF (Urine sed) [#/Area] 0-5 /HPF 0-5 /HPF [facility] ANES Rosa 04-30-2020 ANES POST HNO ID: [id number] Author: Lorenzo Kauffman Service: Anesthesiology Author Type: Anesthesiologist Type: Anesthesia PostOp Filed: 04/30/2020 4:38 PM Note Text: POST ANESTHESIA EVALUATION NOTE SERVICE DATE: 04/30/2020 SERVICE TIME: 4:38 PM : 1950 Vitals: 04/30/20 1040 04/30/20 1509 04/30/20 1621 Temp: 36.1 ?C (97 ?F) 36.1 ?C (97 ?F) 36.1 ?C (97 ?F) 04/30/20 1540 04/30/20 1545 04/30/20 1600 04/30/20 1621 BP: 114/64 115/69 102/57 115/69 04/30/20 1540 04/30/20 1545 04/30/20 1600 04/30/20 1621 Pulse: 75 75 73 71 04/30/20 1540 04/30/20 1545 04/30/20 1600 04/30/20 1621 Resp: 12 17 13 16 04/30/20 1540 04/30/20 1545 04/30/20 1600 04/30/20 1621 SpO2: 94% 93% 95% 94% Validated Vital Signs: Yes POST ANES STATUS: No apparent anesthetic complications. The patient is appropriately hydrated with stable respiratory and cardiovascular status. Patient has safe and adequate airway control. The patient has appropriate pain relief and no significant post operative nausea or vomiting. The patient has achieved baseline mental status. Intra-Operative Events: No Significant Anesthesia Events Further assessment by Anesthesia Service: None Other Remarks: SIGNATURE: Lorenzo Kauffman MD PATIENT NAME: Shimon Amato DATE: April 30, 2020 TIME: 4:38 PM PAGER/CONTACT #: [phone] [facility] ANES PREOPon 04-30-2020 ANES PREOP HNO ID: [id number] Author: Derrick Wylie (Srna) Service: Anesthesiology Author Type: Student Type: Anesthesia PreOp Filed: 04/30/2020 10:47 AM Note Text: Attestation signed by Lorenzo Kauffman at 04/30/2020 12:19 PM agree [facility] DAY OF SURGERY NOTE PATIENT NAME: Shmion Amato : 1950 Procedure(s) (LRB): ARTHRODESIS WRIST (Right) Surgeon(s): Sam House Allergies: ALLERGIES Allergen Reactions - Latex Rash Vitals: There were no vitals filed for this visit. Estimated body mass index is 28.28 kg/m? as calculated from the following: Height as of 04/21/20: 180.3 cm (5' 11). Weight as of 04/21/20: 92 kg (202 lb 12.8 oz). ACTIVE PROBLEM LIST Degeneration of Intervertebral Disc, Site Unspecified Pain in Joint, Pelvic Region and Thigh Urinary Incontinence Benign Non-Nodular Prostatic Hyperplasia With Lower Urinary Tract Symptoms Primary Osteoarthritis of Right Hip Hip Osteoarthritis Status Post Bilateral Hip Replacements Post-Traumatic Osteoarthritis, Right Wrist Mylene (Obstructive Sleep Apnea) PAST MEDICAL HISTORY Diagnosis Date - Benign non-nodular prostatic hyperplasia with lower urinary tract symptoms 09/15/2015 - OAB (overactive bladder) PAST SURGICAL HISTORY Procedure Laterality Date - APPENDECTOMY 1976 - KNEE SCOPE,DIAGNOSTIC Left Arthroscopy, knee - PAST SURGICAL HISTORY OF neuroma right hand - PAST SURGICAL HISTORY OF Left 10/15/2014 Arthroplasty left -[place] - PAST SURGICAL HISTORY OF Right 2000 wrist fusion - PAST SURGICAL HISTORY OF uvulectomy - PAST SURGICAL HISTORY OF Bilateral 08/2018 and 10/2014 [facility] - [facility] N/CARPAL TUNNEL SURG Right Carpal tunnel decomp FAMILY HISTORY Problem Relation Age of Onset - Stroke Mother - other (Other) Father hip fracture/blood clot - Arthritis Sister - No Known Problems Brother - Cancer Brother Social History: Social History Tobacco Use - Smoking status: Never Smoker - Smokeless tobacco: Never Used Substance Use Topics - Alcohol use: Yes Alcohol/week: 5.0 standard drinks Types: 2 Glasses of Wine (5oz) per week Frequency: 2-3 times a week Drinks per session: 1 or 2 - Drug use: No Prior to Admission medications as of 04/21/20 0947 Medication Sig Last Dose Taking oxyCODONE-acetaminoph en (PERCOCET) 5-325 mg tablet Take 1-2 tablets by mouth every 4 hours as needed for up to 7 days. for pain. docusate sodium (COLACE) 100 mg capsule Take 1 capsule by mouth twice daily. Cholecalciferol, Vitamin D3, (VITAMIN D) 25 mcg (1,000 unit) cap Take 1,000 Units by mouth once daily. aspirin, enteric coated (ASPIRIN, ENTERIC COATED) 81 mg EC tablet Take 81 mg by mouth once daily. calcium carbonate/vitamin D3 (CALCIUM 500 + D ORAL) Take by mouth. multivitamin tablet Take 1 tablet by mouth once daily. Current Facility-Administered Medications Medication Dose Route Frequency Provider Last Rate Last Dose - lidocaine 10 mg/mL (1 %) 1-2 mg injection (XYLOCAINE) 0.1-0.2 mL INTRADERMAL PRN Dalton Ybarra (Pa) [place] - lactated ringers infusion 5-30 mL/hr INTRAVENOUS CONTINUOUS Dalton Ybarra (Pa) [place] - ceFAZolin iv piggyback 2 g in D5W (iso-osmotic) 100 mL (ANCEF) 2 g INTRAVENOUS Pre-Op Once Dalton R (Pa) [place] - midazolam (PF) 4 mg injection (VERSED) 4 mg INTRAVENOUS ONCE Lorenzo Kauffman Hemoglobin 15.3 04/21/2020 Hematocrit 46.7 04/21/2020 Platelet Count 225 04/21/2020 Glucose 114 04/21/2020 BUN 20 04/21/2020 Creatinine 0.80 04/21/2020 Sodium 138 04/21/2020 Potassium 4.2 04/21/2020 Chloride 107 04/21/2020 CO2 23 04/21/2020 Protein, Total 6.6 04/21/2020 Albumin 4.2 04/21/2020 Calcium 9.2 04/21/2020 Alkaline Phosphatase 65 04/21/2020 Bilirubin, Total 0.4 04/21/2020 AST 22 04/21/2020 ALT 23 04/21/2020 Adequate NPO status: Yes Anesthetic risks, benefits, alternatives, personnel and consent discussed: Yes Patient agrees to proceed: Yes Previous Anesthesia: No history of adverse event. Airway Assessment: MP 1; Neck ROM: Full ROM without neurologic symptoms; Airway Evaluation: No significant abnormalities Dentition: Teeth intact Symptoms of Sleep Apnea: MYLENE s/p uvulectomy Blood Products: Not anticipated for this procedure. Anesthetic Plan: PNB w/ MAC vs. General; Standard ASA Monitors Pain Management Plan: Parenteral or Oral and Peripheral Nerve Block ASA Class: 2 Other Medical Problems: None Chronic Beta Ann medication administered within 24 hours: N/A I have interviewed and examined the patient. I have reviewed the medical record and/or the pre-anesthesia evaluation, pertinent labs, and test results. Significant changes in the patient's condition since the History and Physical, not otherwise documented in primary service progress notes: No This contains updated information obtained within 48 hours of Surgery/Procedure. SIGNATURE: MELA Nobles DATE: April 30, 2020 TIME: 10:36 AM [facility] BRIEF OP NOTon 04-30-2020 BRIEF OP NOT HNO ID: [id number] Author: Stephan Mendez Service: Orthopaedic Surgery Author Type: Resident Type: Brief Op Note Filed: 04/30/2020 3:14 PM Note Text: BRIEF OP NOTE LOG ID: [id number] Surgery/Procedure Date: 04/30/2020 Incision/Procedure Start Time: 1:11 PM Incision Close/Procedure End Time: 2:58 PM Surgeon(s)/Procedural ist(s) and [employer] Operator Helper(s): Surgeon(s) and Role: * Sam House - Primary * Stephan Mendez - Resident - Assisting * Joel Lakhani MD (Fel) - Fellow Procedure(s): Right total wrist fusion Anesthesia: Monitored Anesthesia Care Findings: SLAC wrist with radiocarpal degenerative changes Estimated Blood Loss: 50 mls Specimens: None Complications: None Pre-Op/Pre-Procedure Diagnosis: SLAC wrist, post traumatic OA Post-Op/Post-Procedur e Diagnosis: SLAC wrist , post traumatic OA SIGNATURE: Stephan Mendez MD PATIENT NAME: Shimon Amato DATE: April 30, 2020 TIME: 3:13 PM PAGER/CONTACT #: [facility] NURSING PROGon 04-30-2020 NURSING PROG HNO ID: [id number] Author: Ashlie (Rn) ANTONIO Watson Service: ? Author Type: Registered Nurse Type: Nursing Progress Note Filed: 04/30/2020 3:40 PM Note Text: TLS drain intact. Suction maintained, draining small amount of serosanguinous drainage. [facility] OPERATIVE NOon 04-30-2020 OPERATIVE NO HNO ID: [id number] Author: Sam House Service: Orthopaedic Surgery Author Type: Physician Type: Operative Report Filed: 05/03/2020 12:45 PM Note Text: [facility] - Operative Report SHIMON AMATO : 1950 AGE: 69. SEX: M PATIENT TYPE: A HOSP SVC: OROR LOCATION: [facility]AM[facility] ATTENDING PHYSICIAN: JARAD NUMBER: [id number] DATE OF SURGERY/PROCEDURE: 04/30/2020 INCISION/PROCEDURE START TIME: 01:11 p.m. INCISION CLOSE/PROCEDURE END TIME: 02:58 p.m. PREOPERATIVE DIAGNOSIS: Right wrist osteoarthritis. POSTOPERATIVE DIAGNOSIS: Right wrist osteoarthritis. SURGEON: Sam House MD [employer]: 1. Joel Lakhani M.D. 2. Stephan Mendez M.D. SURGERY/PROCEDURE: Right total wrist fusion. ANESTHESIA: Block with sedation. LOCATION: [place]. OPERATIVE INDICATIONS: The patient is a 69-year-old gentleman with longstanding right wrist osteoarthritis and previous STT fusion. He has failed conservative measures. Therefore, the risks, benefits, alternatives, convalescence, and personnel of the above procedure were discussed in detail and he consents to proceed. DESCRIPTION OF PROCEDURE: The patient had a block in the preoperative area and brought to the operating room in excellent condition. He was placed supine on the operating table and sedation was placed. The right upper extremity was then prepped and draped in the usual sterile fashion. A surgical time-out was performed. The right wrist was identified as the correct operative site and marked in the preoperative area. Preoperative antibiotics were given within 1 hour and prior to incision. Right arm was exsanguinated and tourniquet was applied to right upper brachium and inflated to 250 mmHg for less than 2 hours throughout the case. We made a longitudinal incision over the dorsum of the right wrist, taken through skin and subcutaneous tissue with cauterization of all crossing vessels. Full-thickness radioulnar flaps were developed with careful dissection, retraction, and protection of the sensory nerve branches. The third compartment was opened. The second and fourth compartments elevated off the distal radius as well as the carpus and an inverted T capsular exposure was performed. It was noted that he had abundant synovitis as well as complete loss of the articular cartilage at both the radial lunate facet, lunate, scaphoid, and the head of the capitate. A microsagittal saw was utilized to remove the proximal half of the scaphoid and then the lunate and triquetrum were dissected and removed in their entirety. The cancellous bone was harvested from these bones for future bone grafting. Next, a rongeur and saline cold bur were utilized to remove any sclerotic bone from the capitate as well as the radius. He had a large cyst in the radius itself and we curetted out any soft tissue in this area and packed in the bone graft from his harvested carpal bones. After the preparation of bones, we confirmed that we could align the wrist nicely. A Synthes wrist fusion plate was chosen. We placed 3 screws into the third metacarpal, gaining excellent fixation of the plate. We packed the remaining bone graft mixed with DBX bone graft into the joints to be fused and then placed 2 screws into the shaft of the radius in compression mode, gaining excellent compression and stability to the fusion site and then placed the remaining locking screws. Clinically, the wrist had excellent posture with approximately 10-15 degrees of wrist extension and slight ulnar deviation. Fluoroscopy showed excellent position of the arthrodesis and well-positioned hardware and appropriate screw lengths. The capsule was closed [id number] using 2-0 Vicryl suture. The EPL was left transposed. The extensor retinaculum was closed with 2-0 Vicryl suture. A TLS drain was placed and the subcutaneous tissue was closed with 3-0 Monocryl. Prior to this, the wound again had been thoroughly irrigated and the skin was closed with running 4-0 nylon. A bulky sterile dressing was applied as well as a volar splint. Tourniquet was deflated. Brisk cap refill returned. The patient will follow up in 5-7 days for an individualized program. I was scrubbed in for the entire procedure minus the skin closure. I performed the procedure assisted by Dr. Stephan Mendez and Dr. Joel Lakhani. COUNTS: The sponge, needle, and instrument count was correct. COMPLICATIONS: None. ESTIMATED BLOOD LOSS: 10 mL. SPECIMENS: The removed carpal bones. Sam House MD SDM:[id number] /[id number] cc: [facility] PT EDon 04-30-2020 PT ED HNO ID: [id number] Author: Pricilla Mclean RN Service: Nursing Author Type: Registered Nurse Type: Patient Education Filed: 04/30/2020 10:24 AM Note Text: PRE OP LEARNING ASSESSMENT PROCEDURE/SURGERY: SURGERY: ARTHRODESIS WRIST - Right READINESS TO LEARN COGNITIVE ABILITY: Alert and oriented MOTIVATION TO LEARN: Eager Interested FAMILY SUPPORT: Unable to assess - Family not present PATIENT LEARNS BEST BY: Multiple Methods FACTORS AFFECTING LEARNING: None PHYSICAL LIMITATIONS AFFECTING LEARNING: None Electronically Signed By: Pricilla Mclean RN In Department: [facility] SURGICAL SERVICES [facility] NURSING PROGon 04-26-2020 NURSING PROG HNO ID: [id number] Author: Luis GonzalezRnYonatan Collier RN Service: ? Author Type: Registered Nurse Type: Nursing Progress Note Filed: 04/27/2020 7:14 AM Note Text: PACC Nurse Progress Note History AND Physical: PACC Visit Date: 04/21/2020 Original HANDP Date: 04/21/2020 ED visit Date: N/A Outside HANDP Scanned Date: N/A Labs Within Last 6 Months: CBC: Date 04/21/2020 WNL BMP/CMP: Date 04/21/2020 Glucose 114, Chloride 107 Covid scheduled 04/27/2020 review in [facility] Imaging Within Last 12 Months: X-ray Wrist right 10/27/2019 see [facility] Cardiac Testing: Exercise Nuclear Stress Test Date: 01/25/2018 , Comment: No ischemia, preserved EF see Care everywhere and also scanned in [facility] BMI Percentile (PEDS): N/A Risk Assessment: N/A Anesthesia Review: s/p uvulectomy Narrative: N/A Pre-op Considerations: Benign non-nodular prostatic hyperplasia with lower urinary tract symptoms: no rx MYLENE: s/p uvulectomy, no CPAP Chart Check: COMPLETE-Covid scheduled 04/27/2020 review in [facility] Luis Collier RN April 27, 2020 7:14 AM [facility] HOSPon 03-31-2020 HOSP Patient:Michelle Amato MRN: Height:5' 11(1.803 m) Weight:202 lb 12.8 oz (91.989 kg) Outpatient Medications as of 04/30/20: oxyCODONE-acetaminoph en (PERCOCET) 5-325 mg tablet docusate sodium (COLACE) 100 mg capsule Cholecalciferol, Vitamin D3, (VITAMIN D) 25 mcg (1,000 unit) cap aspirin, enteric coated (ASPIRIN, ENTERIC COATED) 81 mg EC tablet calcium carbonate/vitamin D3 (CALCIUM 500 + D ORAL) multivitamin tablet Admission/Clinic Administered Medications as of 04/30/20: lidocaine 10 mg/mL (1 %) 1-2 mg injection (XYLOCAINE) lactated ringers infusion ceFAZolin iv piggyback 2 g in D5W (iso-osmotic) 100 mL (ANCEF) Problem List: Degeneration of intervertebral disc, site unspecified [DYP5558] Pain in joint, pelvic region and thigh [M25.559] Urinary incontinence [R32] Benign non-nodular prostatic hyperplasia with lower urinary tract symptoms [N40.1] Primary osteoarthritis of right hip [M16.11] Hip osteoarthritis [M16.9] Status post bilateral hip replacements [Z96.643] Post-traumatic osteoarthritis, right wrist [M19.131] MYLENE (obstructive sleep apnea) [G47.33] Allergies: Latex Date Verified: 04/30/20 Lab Values Lab Value Units Date High Low POTA* 4.2 mmol/L 04/21/2020 5.1 3.7 DOYLE* 46.7 % 04/21/2020 51.0 39.0 Progress Notes (ORTH REPLACED BY [facility]): Sam House MD 04/19/2020 2:24 PM Signed Follow up: R wrist HPI: Mr. Amato is following up for R SLAC wrist. Last visit we provided education on wrist fusion. The current symptoms are severe pain and very limited motion. PAST MEDICAL HISTORY Diagnosis Date - Benign non-nodular prostatic hyperplasia with lower urinary tract symptoms 09/15/2015 - OAB (overactive bladder) Current Outpatient Medications Medication Sig Dispense Refill - Cholecalciferol, Vitamin D3, (VITAMIN D) 25 mcg (1,000 unit) cap Take 1,000 Units by mouth once daily. - aspirin, enteric coated (ASPIRIN, ENTERIC COATED) 81 mg EC tablet Take 81 mg by mouth once daily. - meloxicam (MOBIC) 15 mg tablet Take 1 tablet by mouth once daily. With food. 30 tablet 2 - bisacodyl EC (DULCOLAX) 5 mg EC tablet Take 2 tablets by mouth once daily. - docusate sodium (COLACE) 100 mg capsule Take 1 capsule by mouth twice daily. - baclofen (LIORESAL) 10 mg tablet Take 1 tablet by mouth three times daily as needed (spasms). 30 tablet 0 - calcium carbonate/vitamin D3 (CALCIUM 500 + D ORAL) Take by mouth. - multivitamin tablet Take 1 tablet by mouth once daily. - aspirin, enteric coated (ASPIRIN, ENTERIC COATED) 325 mg EC tablet Take 1 tablet by mouth twice daily. 68 tablet 0 - pantoprazole DR (PROTONIX) 40 mg tablet Take 1 tablet by mouth DAILY (6 AM). (Patient not taking: Reported on 12/12/2019 ) 30 tablet 0 No current facility-administered medications for this visit. ALLERGIES Allergen Reactions - Latex Rash All medical history, medications and allergies have been discussed with the patient today. ROS: REVIEW OF SYMPTOMS: Constitutional: patient denies any recent fever or significant change in weight Gastrointestinal: patient denies any current abdominal discomfort Musculoskeletal: as noted in the HPI Neurologic: as noted in the HPI SOCIAL HISTORY: Tobacco Use: Never Patient reports no change in past medical AND surgical history, medications, allergies, social history, family history and review of systems since last visit. Physical Examination: Mr.. Amato is a healthy appearing male in no acute distress. Bilateral upper limbs have equal and intact peripheral pulses. Skin does not demonstrate any rashes or lesions. +swelling and TTP dorsum R wrist. 20 degree painful f/e arc R wrist - near full pronosupination, no TTP DRUJ. Sensation decreased median nerve dist from previous CTR and nerve injury. Assessment: Post-traumatic osteoarthritis of right wrist (primary encounter diagnosis) Plan: I discussed with Mr.. Amato the diagnosis and different treatment options. He elects for wrist fusion. The risks, benefits, alternatives, convalescence and personnel of a R total wrist fusion were discussed with the patient in detail. All questions were answered in detail and the patient consents and wishes to proceed. The patient was offered a surgery/procedure at a [facility] facility. The surgeon/proceduralist and patient have discussed in detail the risk of exposure to and/or potential harm posed by the COVID-19 virus with having a surgery/procedure at this time versus the risk of delaying the surgery/procedure. It is not possible to know either the risk of delaying the surgery or procedure or chance of getting an infection with perfect accuracy, but a joint decision was made between the patient and the surgeon/proceduralist to proceed at this time with the scheduled surgery/procedure as indicated on the consent form. Sam House MD April 19, 2020 2:22 PM [facility] Clinical Summary: HMSPatient IDon 10-27-2019 [facility] Work Phone: Office Visit: New - visi t with practice, Rm: 5on 10-27-2019 NEGATED: Highlighted rowTobacco smoking status NHIS Tobacco smoking status VTIS [facility] Work Phone: US DVT LOWER BILon 8 US DVT LOWER LUMA * * *Final Report* * *DATE OF EXAM: Aug 27 2018 8:49AM MDU 1005 - US DVT LOWER LUMA / REASON: M79.89-Leg swelling * * * * Physician Interpretation * * * * Examination: US DVT LOWER BILHistory: Leg swelling . Right hip surgeryPlease fax to [phone] : US DVT LOWER BILComparison: NoneRESULTHigh resolution duplex sonographic images of the venous structures of the right and left lower extremity are obtained from the level of the inguinal ligament to the level of the ankle.The common femoral, greater saphenous, superficial femoral, and popliteal veins are well visualized bilaterally and easily compressible throughout with good color flow. Augmentation is normal at both the popliteal and common femoral vein levels.Posterior tibial and peroneal veins are well segmentally visualized and appear patent.Popliteal fossa cysts on the left are seen which measure 6.8 x 1.7 x 4.1 cm, and 2 x 0.5 x 0.7 cm.Some venous stasis is noted within the right popliteal veinIMPRESSION: No evidence for DVT identified in either lower extremity. Segmental visualization below the knee.Left popliteal fossa cysts.Venous stasis right popliteal vein.Umbrella Mender : PSCB Transcribe Date/Time: Aug 27 2018 1:31PDictated by : YOEL GALLARDO MDThis examination was interpreted and the report reviewed and electronically signed by: YOEL GALLARDO MD on Aug 27 2018 1:34PM [id number] [facility] Vital Signs Date Time Vital Sign Value Performing Clinician Facility 06-04-2025 10:30-0400 Body height 180.3 cm Helio Cortez MD Work Phone: [facility] 06-04-2025 10:30-0400 Body mass index (BMI) [Ratio] 29.99 kg/m2 Helio Cortez MD Work Phone: [facility] 06-04-2025 10:30-0400 Body weight 97.52 kg Helio Cortez MD Work Phone: [facility] 06-04-2025 10:30-0400 Respiratory rate 18 /min Helio Coretz MD Work Phone: [facility] 05-05-2025 11:18-0400 Body height 185.4 cm Helio Cortez MD Work Phone: [facility] 05-05-2025 11:18-0400 Body mass index (BMI) [Ratio] 28.37 kg/m2 Helio Cortez MD Work Phone: [facility] 05-05-2025 11:18-0400 Body weight 97.52 kg Helio Cortez MD Work Phone: [facility] 05-05-2025 11:18-0400 Respiratory rate 18 /min Helio Cortez MD Work Phone: [facility] 04-13-2025 13:23-0400 Body height 180.3 cm Suresh Soto MD Work Phone: [facility] 04-13-2025 13:23-0400 Body mass index (BMI) [Ratio] 29.99 kg/m2 Suresh Soto MD Work Phone: [facility] 04-13-2025 13:23-0400 Body weight 97.52 kg Suresh Soto MD Work Phone: [facility] 04-13-2025 13:23-0400 Respiratory rate 18 /min Suresh Soto MD Work Phone: [facility] 04-13-2025 11:25-0400 Body height 180.3 cm Pst 1 [facility] 04-13-2025 11:25-0400 Body mass index (BMI) [Ratio] 29.71 kg/m2 Pst 1 [facility] 04-13-2025 11:25-0400 Body temperature 97.3 [degF] Pst 1 [facility] 04-13-2025 11:25-0400 Body weight 96.62 kg Pst 1 [facility] 04-13-2025 11:25-0400 Diastolic blood pressure 89 mm[Hg] Pst 1 [facility] 04-13-2025 11:25-0400 Heart rate 75 /min Pst 1 [facility] 04-13-2025 11:25-0400 Respiratory rate 16 /min Pst [address] [place] [address] 04-13-2025 11:25-0400 SaO2% (BldA) [Mass fraction] 96 % Pst 1 [facility] 04-13-2025 11:25-0400 Systolic blood pressure 159 mm[Hg] Pst 1 [facility] 03-27-2025 10:39-0400 Body height 180.3 cm Suresh Soto MD Work Phone: [facility] 03-27-2025 10:39-0400 Body mass index (BMI) [Ratio] 30.44 kg/m2 Suresh Soto MD Work Phone: [facility] 03-27-2025 10:39-0400 Body weight 99 kg Suresh Soto MD Work Phone: [facility] [facility] 03-27-2025 10:39-0400 Diastolic blood pressure 80 mm[Hg] Suresh Soto MD Work Phone: [facility] 03-27-2025 10:39-0400 Heart rate 78 /min Suresh Soto MD Work Phone: [facility] 03-27-2025 10:39-0400 SaO2% (BldA) [Mass fraction] 96 % Suresh Soto MD Work Phone: [facility] 03-27-2025 10:39-0400 Systolic blood pressure 139 mm[Hg] Suresh Soto MD Work Phone: [facility] 03-24-2025 13:14-0400 Body height 180.3 cm Helio Cortez MD Work Phone: [facility] 03-24-2025 13:14-0400 Body mass index (BMI) [Ratio] 30.13 kg/m2 Helio Cortez MD Work Phone: [facility] 03-24-2025 13:14-0400 Body weight 97.98 kg Helio Cortez MD Work Phone: [facility] 03-24-2025 13:14-0400 Respiratory rate 18 /min Helio Cortez MD Work Phone: [facility] 2024 13:13-0500 Body height 180.3 cm Helio Cortez MD Work Phone: [facility] 2024 13:13-0500 Body mass index (BMI) [Ratio] 29.99 kg/m2 Helio Cortez MD Work Phone: [facility] 2024 13:13-0500 Body weight 97.52 kg Helio Cortez MD Work Phone: [facility] 2024 13:13-0500 Respiratory rate 16 /min Helio Cortez MD Work Phone: [facility] 12-16-2024 13:36-0500 Body height 180.3 cm Helio Cortez MD Work Phone: [facility] 12-16-2024 13:36-0500 Body mass index (BMI) [Ratio] 29.99 kg/m2 Helio Cortez MD Work Phone: [facility] 12-16-2024 13:36-0500 Body weight 97.52 kg Helio Cortez MD Work Phone: [facility] 12-16-2024 13:36-0500 Respiratory rate 18 /min Helio Cortez MD Work Phone: [facility] 10-23-2024 10:49-0500 Body height 180.3 cm Helio Cortez MD Work Phone: [facility] 10-23-2024 10:49-0500 Body mass index (BMI) [Ratio] 29.99 kg/m2 Helio Cortez MD Work Phone: [facility] 10-23-2024 10:49-0500 Body weight 97.52 kg Helio Cortez MD Work Phone: [facility] 10-23-2024 10:49-0500 Respiratory rate 20 /min Helio Cortez MD Work Phone: [facility] 09-26-2024 10:52-0500 Body height 180.3 cm Kat Palomo PA-C Work Phone: [facility] 09-26-2024 10:52-0500 Body mass index (BMI) [Ratio] 29.99 kg/m2 Kat Palomo PA-C Work Phone: [facility] 09-26-2024 10:52-0500 Body weight 97.52 kg Kat ELIAS-C Work Phone: [facility] 09-26-2024 10:52-0500 Respiratory rate 20 /min Kat ELIAS-C Work Phone: [facility] 08-22-2024 10:41-0400 Body height 180.3 cm Stephan Yun MD Work Phone: [facility] 08-22-2024 10:41-0400 Body mass index (BMI) [Ratio] 29.29 kg/m2 Stephan Yun MD Work Phone: [facility] 08-22-2024 10:41-0400 Body temperature 98.29 [degF] Stephan Yun MD Work Phone: [facility] 08-22-2024 10:41-0400 Body weight 95.25 kg Stephan Yun MD Work Phone: [facility] 10-10-2023 14:38-0500 Body height 180.3 cm Giovanni Mclean V, DO Work Phone: [facility] 10-10-2023 14:38-0500 Body temperature 97.59 [degF] Giovanni Mclean V, DO Work Phone: [facility] 10-10-2023 14:38-0500 Body weight 101.06 kg Giovanni Mclean V, DO Work Phone: [facility] 10-10-2023 14:38-0500 Diastolic blood pressure 87 mm[Hg] Giovanni Mclean V, DO Work Phone: [facility] 10-10-2023 14:38-0500 Heart rate 88 /min Giovanni Mclean V, DO Work Phone: [facility] 10-10-2023 14:38-0500 Respiratory rate 18 /min Giovanni Mclean V, DO Work Phone: [facility] 10-10-2023 14:38-0500 SaO2% (BldA) [Mass fraction] 96 % Giovanni Mclean V, DO Work Phone: [facility] 10-10-2023 14:38-0500 Systolic blood pressure 145 mm[Hg] Giovanni Mclean V, DO Work Phone: [facility] 04-03-2022 10:04-0400 Body temperature 98.4 [degF] Avis Marin-Kervin PT Work Phone: [facility] 04-03-2022 10:04-0400 Diastolic blood pressure 78 mm[Hg] Avis Leederman-Galeana PT Work Phone: [facility] 04-03-2022 10:04-0400 Heart rate 89 /min Avis Marin-Galeana PT Work Phone: [facility] 04-03-2022 10:04-0400 Respiratory rate 17 /min Avis Marin-Galeana PT Work Phone: [facility] 04-03-2022 10:04-0400 SaO2% (BldA) [Mass fraction] 96 % Avis Jesusderman-Galeana PT Work Phone: [facility] 04-03-2022 10:04-0400 Systolic blood pressure 122 mm[Hg] Avis Halderman-Galeana PT Work Phone: [facility] 03-31-2022 10:23-0400 Body temperature 98.01 [degF] Laly Lincoln CELL CHANGER Work Phone: [facility] 03-31-2022 10:23-0400 Diastolic blood pressure 82 mm[Hg] Laly Lincoln CELL CHANGER Work Phone: [facility] 03-31-2022 10:23-0400 Heart rate 100 /min Laly Lincoln CELL CHANGER Work Phone: [facility] 03-31-2022 10:23-0400 Respiratory rate 18 /min Laly Lincoln CELL CHANGER Work Phone: [facility] 05-20-2022 10:23-0400 SaO2% (BldA) [Mass fraction] 97 % Laly Lincoln CELL CHANGER Work Phone: [facility] 03-31-2022 10:23-0400 Systolic blood pressure 124 mm[Hg] Laly Lincoln CELL CHANGER Work Phone: [facility] 03-30-2022 13:12-0400 Body temperature 98.01 [degF] Laly Lincoln CELL CHANGER Work Phone: [facility] 03-30-2022 13:12-0400 Diastolic blood pressure 84 mm[Hg] Laly Lincoln CELL CHANGER Work Phone: [facility] 03-30-2022 13:12-0400 Heart rate 100 /min Laly Lincoln CELL CHANGER Work Phone: [facility] 03-30-2022 13:12-0400 Respiratory rate 18 /min Laly Lincoln CELL CHANGER Work Phone: [facility] 03-30-2022 13:12-0400 SaO2% (BldA) [Mass fraction] 95 % Laly Lincoln CELL CHANGER Work Phone: [facility] 03-30-2022 13:12-0400 Systolic blood pressure 122 mm[Hg] Laly Lincoln CELL CHANGER Work Phone: [facility] 03-28-2022 09:09-0400 Body temperature 97.39 [degF] Laly Lincoln CELL CHANGER Work Phone: [facility] 03-28-2022 09:09-0400 Diastolic blood pressure 86 mm[Hg] Laly Lincoln CELL CHANGER Work Phone: [facility] 03-28-2022 09:09-0400 Heart rate 101 /min Laly Lincoln CELL CHANGER Work Phone: [facility] 03-28-2022 09:09-0400 Respiratory rate 18 /min Laly Lincoln CELL CHANGER Work Phone: [facility] 03-28-2022 09:09-0400 SaO2% (BldA) [Mass fraction] 95 % Laly Lincoln CELL CHANGER Work Phone: [facility] 03-28-2022 09:09-0400 Systolic blood pressure 140 mm[Hg] Laly Lincoln CELL CHANGER Work Phone: [facility] 03-23-2022 09:49-0400 Diastolic blood pressure 68 mm[Hg] Laly Lincoln CELL CHANGER Work Phone: [facility] 03-23-2022 09:49-0400 Heart rate 92 /min Laly Lincoln CELL CHANGER Work Phone: [facility] 03-23-2022 09:49-0400 SaO2% (BldA) [Mass fraction] 97 % Laly Lincoln CELL CHANGER Work Phone: [facility] 03-23-2022 09:49-0400 Systolic blood pressure 110 mm[Hg] Laly Lincoln CELL CHANGER Work Phone: [facility] 03-23-2022 09:00-0400 Body temperature 97.81 [degF] Laly Lincoln CELL CHANGER Work Phone: [facility] 03-22-2022 12:40-0400 Body temperature 97.7 [degF] Laly Lincoln CELL CHANGER Work Phone: [facility] 03-22-2022 12:40-0400 Diastolic blood pressure 78 mm[Hg] Laly Lincoln CELL CHANGER Work Phone: [facility] 03-22-2022 12:40-0400 Heart rate 101 /min Laly Lincoln CELL CHANGER Work Phone: [facility] 03-22-2022 12:40-0400 Respiratory rate 18 /min Laly Lincoln CELL CHANGER Work Phone: [facility] 03-22-2022 12:40-0400 SaO2% (BldA) [Mass fraction] 96 % Laly Lincoln CELL CHANGER Work Phone: [facility] 03-22-2022 12:40-0400 Systolic blood pressure 118 mm[Hg] Laly Lincoln CELL CHANGER Work Phone: [facility] 03-20-2022 15:35-0400 Body temperature 97.7 [degF] Avis Marin-Galeana PT Work Phone: [facility] 03-20-2022 15:35-0400 Diastolic blood pressure 82 mm[Hg] Avis Hurtman-Galeana PT Work Phone: [facility] 03-20-2022 15:35-0400 Heart rate 96 /min Avis Marin-Galeana PT Work Phone: [facility] 03-20-2022 15:35-0400 Respiratory rate 18 /min Avis Marin-Galeana PT Work Phone: [facility] 03-20-2022 15:35-0400 SaO2% (BldA) [Mass fraction] 96 % Avis Marin-Galeana PT Work Phone: [facility] 03-20-2022 15:35-0400 Systolic blood pressure 130 mm[Hg] Avis Marin-Galeana PT Work Phone: [facility] 03-18-2022 12:14-0400 Body temperature 97.2 [degF] William Knupp PT Work Phone: [facility] 03-18-2022 12:14-0400 Diastolic blood pressure 80 mm[Hg] William Knupp PT Work Phone: [facility] 03-18-2022 12:14-0400 Heart rate 91 /min William Knupp PT Work Phone: [facility] 03-18-2022 12:14-0400 Respiratory rate 18 /min William Knupp PT Work Phone: [facility] 03-18-2022 12:14-0400 SaO2% (BldA) [Mass fraction] 97 % William Knupp PT Work Phone: [facility] 03-18-2022 12:14-0400 Systolic blood pressure 142 mm[Hg] William Knupp PT Work Phone: [facility] 02-22-2022 10:12-0400 Body height 180.3 cm Pacc 2 Work Phone: [facility] 02-22-2022 10:12-0400 Body temperature 97.59 [degF] Pacc 2 Work Phone: [facility] 02-22-2022 10:12-0400 Body weight 98.02 kg Pacc 2 Work Phone: [facility] 02-22-2022 10:12-0400 Diastolic blood pressure 75 mm[Hg] Pacc 2 Work Phone: [facility] 02-22-2022 10:12-0400 Heart rate 73 /min Pacc 2 Work Phone: [facility] 02-22-2022 10:12-0400 Respiratory rate 18 /min Pacc 2 Work Phone: [facility] 02-22-2022 10:12-0400 Systolic blood pressure 130 mm[Hg] Pacc 2 Work Phone: [facility] NEGATED: Highlighted [id number] 10:04-0500 BMI (Body Mass Index) 29.67 kg/m2 Gisell Degarmo RT [facility] Work Phone: NEGATED: Highlighted [id number] 10:04-0500 Body weight 94.8 kg Gisell Degarmo RT [facility] Work Phone: NEGATED: Highlighted [id number] 10:04-0500 Body weight 95 kg Gisell Degarmo RT [facility] Work Phone: NEGATED: Highlighted [id number] 10:04-0500 BP Diastolic 82 mm[Hg] Gisell Degarmo RT [facility] Work Phone: NEGATED: Highlighted [id number] 10:04-0500 BP Systolic 120 mm[Hg] Gisell Degarmo RT [facility] Work Phone: NEGATED: Highlighted [id number] 10:04-0500 Height 179.07 cm Gisell Degarmo RT [facility] Work Phone: NEGATED: Highlighted [id number] 10:04-0500 Height 179 cm Gisell Degarmo RT [facility] Work Phone: NEGATED: Highlighted [id number] 10:04-0500 Pulse (Heart Rate) 67 /min Gisell Degarmo RT [facility] Work Phone: Encounters Encounter Date Encounter Type Care Provider Facility Start: 07-06-2025 End: 07-06-2025 ambulatory Cherie Sen CELL CHANGER Work Phone: [facility] Comment on above: Nontraumatic tear of right rotator cuff, unspecified tear extent (Primary Dx) Start: 06-23-2025 End: 06-23-2025 ambulatory Juan Lafleur PT Work Phone: [facility] Comment on above: Nontraumatic tear of right rotator cuff, unspecified tear extent (Primary Dx) Start: 06-16-2025 End: 06-16-2025 ambulatory HELIO CORTEZ Facility:[facility] Start: 06-09-2025 End: 06-09-2025 ambulatory Juan Lafleur PT Work Phone: [facility] Comment on above: Nontraumatic tear of right rotator cuff, unspecified tear extent (Primary Dx) Start: 06-04-2025 End: 06-04-2025 Patient encounter procedure Helio Cortez MD Work Phone: [facility] Comment on above: Tear of right rotato r cuff, unspecified tear extent, unspecified whether traumatic (Primary Dx) Start: 06-04-2025 End: 06-04-2025 ambulatory SELF Facility:[facility] Start: 06-02-2025 End: 06-02-2025 ambulatory Juan Lafleur PT Work Phone: [facility] Comment on above: Nontraumatic tear of right rotator cuff, unspecified tear extent (Primary Dx) Start: 05-25-2025 End: 05-25-2025 ambulatory Juan Lafleur PT Work Phone: [facility] Comment on above: Nontraumatic tear of right rotator cuff, unspecified tear extent Start: 05-05-2025 End: 05-05-2025 Patient encounter procedure Helio Cortez MD Work Phone: [facility] Comment on above: Tear of right rotato r cuff, unspecified tear extent, unspecified whether traumatic (Primary Dx) Start: 05-05-2025 End: 05-05-2025 ambulatory GIOVANNI MCLEAN [facility] Start: 04-20-2025 End: 04-20-2025 [facility] GIOVANNI MCLEAN Facility[facility] Start: 04-16-2025 End: 04-16-2025 Telephone encounter Helio Cortez MD Work Phone: [facility] Comment on above: Preparations For Rebel bala (Arrival time confirmation) Start: 04-13-2025 End: 04-13-2025 Office outpatient visit 25 minutes Suresh Soto MD Work Phone: [facility] Comment on above: Cervical spondylosis with myelopathy Start: 04-13-2025 End: 04-13-2025 ambulatory SURESH SOTO Facility[facility] Start: 04-13-2025 End: 04-13-2025 Admission to [facility] 1 Pre Surgical Testing Start: 04-13-2025 End: 04-13-2025 Preprocedural examination done [address] Work Phone: Start: 04-13-2025 End: 04-13-2025 ambulatory GIOVANNI MCLEAN Pre Surgical Testing Comment on above: Preop examination (P rimary Dx); Traumatic complete tear of right rotator cuff, subsequent encounter; Rupture of right proximal biceps tendon, initial encounter; MYLENE (obstructive sleep apnea); H/O echocardiogram; Hypertension, essential Start: 04-10-2025 Encounter for other preprocedural examination STEPHAN YUN [facility] Start: 04-10-2025 Preprocedural examin ation done Pst 1 [facility] Start: 03-31-2025 ambulatory SURESH SOTO Facili ty:[facility] Start: 03-27-2025 End: 03-27-2025 Office outpatient new 30 minutes Suresh Soto MD Work Phone: [facility] Comment on above: Spinal stenosis of c ervical region (Primary Dx); Tear of right rotator cuff, unspecified tear extent, unspecified whether traumatic Start: 03-27-2025 End: 03-27-2025 ambulatory SURESH SOTO Facility:[facility] Start: 03-25-2025 End: 03-25-2025 Telephone encounter Suresh Soto MD Work Phone: [facility] Comment on above: Appointment Traumatic complete t ear of right rotator cuff, subsequent encounter (Primary Dx); Rupture of right proximal biceps tendon, initial encounter Start: 03-24-2025 End: 03-24-2025 Patient encounter procedure Helio Cortez MD Work Phone: [employer] Comment on above: Radiculopathy, cervi jean (Primary Dx); Traumatic complete tear of right rotator cuff, subsequent encounter; Rupture of right proximal biceps tendon, initial encounter Start: 03-24-2025 End: 03-24-2025 ambulatory GIOVANNI MCLEAN [facility] Start: 03-12-2025 End: 03-12-2025 Telephone encounter Helio Cortez MD Work Phone: [facility] Comment on above: Appointment Start: 2024 End: 2024 Patient encounter procedure Helio Cortez MD Work Phone: [employer] Comment on above: Nontraumatic tear of right rotator cuff, unspecified tear extent (Primary Dx); Rupture of right proximal biceps tendon, initial encounter Start: 2024 End: 2024 ambulatory GIOVANNI MCLEAN [facility] Start: 12-17-2024 End: 12-17-2024 ambulatory HELIO CORTEZ Facility:[facility] Start: 12-17-2024 End: 12-17-2024 Subsequent hospital visit by physician [employer] [facility] (I-Stat/1.5t) Work Phone: Radiology Comment on above: Nontraumatic tear of right rotator cuff, unspecified tear extent [M75.101] Start: 12-16-2024 End: 12-16-2024 Patient encounter procedure Helio Cortez MD Work Phone: [facility] Comment on above: Nontraumatic tear of right rotator cuff, unspecified tear extent (Primary Dx); Rupture of right proximal biceps tendon, initial encounter Start: 12-16-2024 End: 12-16-2024 ambulatory GIOVANNI VINAY Facility:[facility] Start: 12-15-2024 End: 12-15-2024 ambulatory [facility] Facility:[facility] Start: 10-23-2024 End: 10-23-2024 ambulatory GIOVANNI VINAY [facility] Start: 10-23-2024 End: 10-23-2024 Patient encounter procedure Helio Cortez MD Work Phone: [facility] Comment on above: Rupture of right pro ximal biceps tendon, initial encounter (Primary Dx); Nontraumatic tear of right rotator cuff, unspecified tear extent Start: 09-30-2024 End: 09-30-2024 Orders Only Giovanni Mclean DO Work Phone: Orthopaedics Comment on above: Cough productive of purulent sputum (Primary Dx) Start: 09-26-2024 End: 09-26-2024 Patient encounter procedure Kat Palomo PA-C Work Phone: [facility] Comment on above: History of carpal tu nnel surgery of left wrist (Primary Dx); Radiculopathy, cervical Start: 09-26-2024 End: 09-26-2024 ambulatory KAT PALOMO [facility] Start: 09-09-2024 ambulatory STEPHAN YUN Fa cility[facility] Start: 08-22-2024 End: 08-22-2024 Patient encounter procedure Stephan Yun MD Work Phone: [facility] Comment on above: Carpal tunnel syndro me of left wrist (Primary Dx) Left carpal tunnel s yndrome (Primary Dx) Start: 08-22-2024 End: 08-22-2024 ambulatory STEPHAN YUN Facility:[facility] Start: 08-18-2024 End: 08-18-2024 ambulatory GIOVANNI MCLEAN Neurology Start: 08-18-2024 End: 08-18-2024 Patient encounter procedure Emg 1 Neur Tennga Mc (Max Weight: 850) Neurology Start: 07-22-2024 End: 07-22-2024 Orders Only Giovanni Mclean DO Work Phone: Orthopaedics Comment on above: Paresthesias in left hand (Primary Dx) Start: 05-21-2024 Telephone encounter Giovanni morgan DO Work Phone: Orthopaedics Comment on above: Appointment Start: 04-11-2024 End: 04-11-2024 Patient encounter procedure Giovanni Mclean DO Work Phone: [facility] Medicine [facility] Comment on above: Rotator cuff disorde r, right (Primary Dx) Start: 04-11-2024 End: 04-11-2024 Subsequent hospital visit by physician [facility] Weldon Work Phone: Radiology Comment on above: Right shoulder pain, unspecified chronicity [M25.511] Start: 04-10-2024 Orders Only Giovanni Valencia O Work Phone: Orthopaedics Comment on above: Right shoulder pain, unspecified chronicity (Primary Dx) Start: 10-10-2023 End: 10-10-2023 Patient encounter procedure Giovanni Mclean DO Work Phone: [facility] Comment on above: Hypertension, essent ial (Primary Dx); Mixed hyperlipidemia; Benign prostatic hyperplasia without lower urinary tract symptoms Start: 09-26-2023 Orders Only Giovanni Mclean D O Work Phone: Orthopaedics Comment on above: Hypertension, essent ial (Primary Dx); Screening for prostate cancer Start: 06-02-2022 End: 06-02-2022 ambulatory Deborah Lima PT Work Phone: [facility] Comment on above: Status post left kne e replacement (Primary Dx) Start: 05-29-2022 End: 05-29-2022 ambulatory Marsha Lance CELL CHANGER Work Phone: [facility] Comment on above: Status post left kne e replacement (Primary Dx) Start: 05-25-2022 End: 05-25-2022 ambulatory Marsha Lance CELL CHANGER Work Phone: [facility] Comment on above: Status post left kne e replacement (Primary Dx) Start: 05-22-2022 End: 05-22-2022 ambulatory Marsha Lance CELL CHANGER Work Phone: [facility] Comment on above: Status post left kne e replacement (Primary Dx) Start: 05-17-2022 End: 05-17-2022 ambulatory Marsha Lance CELL CHANGER Work Phone: [facility] Comment on above: Status post left kne e replacement (Primary Dx) Start: 05-11-2022 End: 05-11-2022 ambulatory Deborah Lima PT Work Phone: [facility] Comment on above: Status post left kne e replacement (Primary Dx) Start: 05-08-2022 End: 05-08-2022 ambulatory Marsha Lance CELL CHANGER Work Phone: [facility] Comment on above: Status post left kne e replacement (Primary Dx) Start: 05-03-2022 End: 05-03-2022 ambulatory Deborah Lima PT Work Phone: [facility] Comment on above: Status post left kne e replacement (Primary Dx) Start: 05-01-2022 End: 05-01-2022 ambulatory Marsha Lance CELL CHANGER Work Phone: [facility] Comment on above: Status post left kne e replacement (Primary Dx) Start: 04-26-2022 End: 04-26-2022 ambulatory Deborah Lima PT Work Phone: [facility] Comment on above: Status post left kne e replacement (Primary Dx) Start: 04-17-2022 End: 04-17-2022 ambulatory Deborah Lima PT Work Phone: [facility] Comment on above: Status post left kne e replacement (Primary Dx) Start: 04-13-2022 End: 04-13-2022 ambulatory Deborah Lima PT Work Phone: [facility] Comment on above: Status post left kne e replacement (Primary Dx) Start: 04-07-2022 End: 04-07-2022 Patient encounter procedure Castillo Allen PA-C Work Phone: Orthopaedics Comment on above: Status post left kne e replacement (Primary Dx); Status post unilateral knee replacement, left Start: 04-07-2022 End: 04-07-2022 Subsequent hospital visit by physician [facility] Rej Work Phone: Radiology Comment on above: Primary osteoarthrit is of left knee [M17.12] Start: 04-07-2022 End: 04-07-2022 ambulatory Deborah Lima PT Work Phone: [facility] Comment on above: Status post left kne e replacement (Primary Dx) Start: 04-05-2022 End: 04-05-2022 ambulatory Deborah Lima PT Work Phone: [facility] Comment on above: Status post left kne e replacement Start: 04-03-2022 Telephone encounter Avis Milton PT Work Phone: [facility] Comment on above: Home Care (agency d/ c) Start: 04-03-2022 End: 04-03-2022 Home visit Avis Milton PT Work Phone: [facility] Comment on above: PT AGENCY DC W VISIT Start: 03-31-2022 End: 03-31-2022 Home visit Laly Stark CELL CHANGER Work Phone: [facility] Comment on above: CELL CHANGER ROUTINE Start: 03-30-2022 End: 03-30-2022 Home visit Laly Stark CELL CHANGER Work Phone: [facility] Comment on above: CELL CHANGER ROUTINE Start: 03-28-2022 End: 03-28-2022 Home visit Laly Stark CELL CHANGER Work Phone: [facility] Comment on above: CELL CHANGER ROUTINE Start: 03-27-2022 Refill Luis ferreira MD Work Phone: Orthopaedics Comment on above: Refill Request Start: 03-23-2022 End: 03-23-2022 Home visit Laly Stark CELL CHANGER Work Phone: [facility] Comment on above: CELL CHANGER ROUTINE Start: 03-22-2022 End: 03-22-2022 Home visit Laly Stark CELL CHANGER Work Phone: [facility] Comment on above: CELL CHANGER ROUTINE Start: 03-20-2022 End: 03-20-2022 Home visit Avis Milton PT Work Phone: [facility] Comment on above: PT CASE MANAGEMENT V ISIT Start: 03-18-2022 End: 03-18-2022 Home visit William Cason PT Work Phone: [facility] Comment on above: PT SOC Start: 03-17-[address] [facility] Comment on above: Home Care Start: 02-24-2022 End: 02-24-2022 Orders Only Castillo Allen PA-C Work Phone: Orthopaedics Comment on above: Primary osteoarthrit is of left knee (Primary Dx) Primary osteoarthrit is of left knee [M17.12] Start: 02-24-2022 End: 02-24-[address] [facility] Start: 02-23-2022 Orders Only Luis ferreira MD Work Phone: Orthopaedics Comment on above: Pre-op testing (Prim rizwana Dx) Start: 02-23-2022 Patient encounter status Pantera Holliday MD Work Phone: Orthopaedics Start: 02-22-2022 End: 02-22-2022 Admission to establishment Pac Jew 2 Work Phone: [facility] Start: 02-22-2022 End: 02-22-2022 ambulatory Pacc Jew 2 Work Phone: Pre Anesthesia Comment on above: Pre-operative examin ation (Primary Dx); Osteoarthritis of left knee, unspecified osteoarthritis type; Hypertension, essential; Benign non-nodular prostatic hyperplasia with lower urinary tract symptoms; Urinary frequency; Snores Start: 02-22-2022 End: 02-22-2022 Preprocedural examination done Pac Jew 2 Work Phone: Pre Anesthesia Start: 08-05-2021 Telephone encounter Giovanni morgan DO Work Phone: Orthopaedics Comment on above: Orders Start: 10-27-2019 End: 10-27-2019 Patient encounter procedure Wei Vance MD Work Phone: [facility] Work Phone: Start: 08-27-2018 Patient encounter PARMINDER V[facility] Procedures Date Procedure Procedure Detail Performing Clinician Start: 03-24-2025 Radex spine cervical 4 or 5 views Helio Cortez MD Work Phone: Start: 12-17-2024 Mri any jt upper ext remity w/o contrast matrl Helio Cortez MD Work Phone: Start: 08-22-2024 Follow-up visit Follow Up YUMIKO YUN Start: 08-18-2024 Nerve conduction christi dies 5-6 studies Giovanni Mclean DO Work Phone: Start: 04-11-2024 Arthrocentesis aspir &/inj major jt/bursa w/o us Giovanni Mclean DO Work Phone: Start: 09-27-2023 Lipid 1996 panel - S shivani or Plasma Giovanni Mclean V DO Work Phone: Start: 04-07-2022 Radiologic examinati on knee 3 views Castillo Allen PA-C Work Phone: Start: 02-24-2022 Ct lower extremity w /o contrast material Castillo Allen PA-C Work Phone: Start: 02-22-2022 End: 02-22-2022 Antibody screen Pacc 2 Work Phone: Comment on above: Order Comment: Speci men Type: BLOOD SPECIMENOrdering Facility: [facility] Address: [address] [place], [place] [id number] Performed By: #### T [id number] ####ISLAM BLOOD BANKCLIA [id number] [address] [place] [address] Start: 12-19-2021 Colonoscopy Giovanni Panchal is V, DO Work Phone: Start: 08-03-2021 Lipid 1996 panel - S shivani or Plasma Xr Rej Work Phone: Start: 10-27-2019 End: 10-27-2019 Blood pressure within normal parameters - no follow-up required Wei Vance MD Work Phone: Start: 10-27-2019 End: 10-27-2019 BMI documented as above normal parameters - follow-up documented Wei Vance MD Work Phone: Start: 10-27-2019 End: 10-27-2019 Documentation of current medications Wei Vance MD Work Phone: Start: 10-27-2019 End: 10-27-2019 Pain assessment documented as positive - follow-up documented Wei Vance MD Work Phone: Start: 10-27-2019 End: 10-27-2019 Radex wrist complete minimum 3 views Wei Vance MD Work Phone: Start: 10-27-2019 End: 10-27-2019 Tobacco non-user Wei Vance MD Work Phone: History of decompres louis of median nerve History of carpal tunnel surgery of left wrist Kat Palomo PA-C Work Phone: NEGATED: Highlighted rowStart: 10-27-2019 End: 10-27-2019 Documentation of current medications Gisell Ozuna RT Plan of Treatment Date Care Activity Detail Author Start: 12-19-2031 Colonoscopy COLONOSCOPY [facility] Start: 12-19-2031 COLORECTAL CANCER SCREENING COLORECTAL CANCER SCREENING [facility] Start: 12-19-2031 Screening for malign ant neoplasm of colon [facility] Start: 09-27-2028 Lipid 1996 panel - Serum or Plasma Lipid Screening [facility] Start: 09-27-2028 Lipid panel Lipid Screening [facility] Start: 09-07-2027 Urine microalbumin profile DTaP,Tdap,Td Vaccine (7 - Tdap) [facility] Start: 09-27-2026 Diabetes Screening Diabetes Screenin g [facility] Start: 08-03-2026 Lipid 1996 panel - Serum or Plasma Lipid Screening [facility] Start: 08-03-2026 LIPID SCREEN LIPID SCREEN [facility] Start: 10-12-2025 End: 10-12-2025 Patient encounter procedure 10/12/2025 9:15 AM EST Office Visit [facility] [address] [place] [address] Suresh Soto MD [address] [facility] [place] [phone] CERVICAL SPINE FU [facility] Comment on above: CERVICAL SPINE FU Start: 08-06-2025 End: 08-06-2025 Patient encounter procedure 08/06/2025 10:15 AM EDT Office Visit [facility] [address] [place] [address] Helio Cortez MD [address] [place] [address] RIGHT SHOULDER SX 04-20-25 [facility] Comment on above: RIGHT SHOULDER SX 04-20-25 Start: 07-27-2025 End: 07-27-2025 ambulatory 07/27/2025 8:45 AM EDT OT/PT/Speech Visit [facility] [address] [place] [address] Cherie Sen, CELL CHANGER [address] [place] [address] M75.101 (ICD-10-CM) - Nontraumatic tear of right rotator cuff, unspecified tear extent [facility] Comment on above: M75.101 (ICD-10-CM) - Nontraumatic tear of right rotator cuff, unspecified tear extent Start: 07-21-2025 End: 07-21-2025 ambulatory 07/21/2025 11:45 AM EDT OT/PT/Speech Visit [facility] [address] [place] [address] Cherie Sen, CELL CHANGER [address] [place] [address] M75.101 (ICD-10-CM) - Nontraumatic tear of right rotator cuff, unspecified tear extent [facility] Comment on above: M75.101 (ICD-10-CM) - Nontraumatic tear of right rotator cuff, unspecified tear extent Start: 07-17-2025 End: 07-17-2025 ambulatory 07/17/2025 9:30 AM EDT OT/PT/Speech Visit [facility] [address] [place] [address] Juan Lafleur, PT [address] [place], [place] [address] M75.101 (ICD-10-CM) - Nontraumatic tear of right rotator cuff, unspecified tear extent [facility] Comment on above: M75.101 (ICD-10-CM) - Nontraumatic tear of right rotator cuff, unspecified tear extent Start: 07-13-2025 Influenza vaccination Influenza Vacc ine (#1) [facility] Start: 07-06-2025 End: 07-06-2025 ambulatory 07/06/2025 2:45 PM EDT OT/PT/Speech Visit [facility] [address] [place] [address] Cherie Sen, CELL CHANGER [address] [place] [address] M75.101 (ICD-10-CM) - Nontraumatic tear of right rotator cuff, unspecified tear extent [facility] Comment on above: M75.101 (ICD-10-CM) - Nontraumatic tear of right rotator cuff, unspecified tear extent Start: 06-23-2025 End: 06-23-2025 ambulatory 06/23/2025 9:30 AM EDT OT/PT/Speech Visit [facility] [address] [place] [address] Juan Lafleur, PT [address] [facility] [address] M75.101 (ICD-10-CM) - Nontraumatic tear of right rotator cuff, unspecified tear extent [facility] Comment on above: M75.101 (ICD-10-CM) - Nontraumatic tear of right rotator cuff, unspecified tear extent Start: 06-16-2025 End: 06-16-2025 ambulatory 06/16/2025 10:15 AM EDT OT/PT/Speech Visit [facility] [address] [place] [address] Cherie Sen, CELL CHANGER [address] [place] [address] M75.101 (ICD-10-CM) - Nontraumatic tear of right rotator cuff, unspecified tear extent [facility] Comment on above: M75.101 (ICD-10-CM) - Nontraumatic tear of right rotator cuff, unspecified tear extent Start: 06-09-2025 End: 06-09-2025 ambulatory 06/09/2025 11:00 AM EDT OT/PT/Speech Visit [facility] [address] [place] [address] Juan Lafleur, PT [address] [facility] [place] [address] M75.101 (ICD-10-CM) - Nontraumatic tear of right rotator cuff, unspecified tear extent [facility] Comment on above: M75.101 (ICD-10-CM) - Nontraumatic tear of right rotator cuff, unspecified tear extent Start: 06-04-2025 End: 06-04-2025 Patient encounter procedure 06/04/2025 10:45 AM EDT Office Visit [facility] [address] [place] [address] Helio Cortez MD [address] [place] [address] RIGHT SHOULDER SX 04-20-25 [facility] Comment on above: RIGHT SHOULDER SX 04-20-25 Start: 06-02-2025 End: 06-02-2025 ambulatory 06/02/2025 2:00 PM EDT OT/PT/Speech Visit [facility] [address] [place] [address] Cherie Sen, CELL CHANGER [address] [place] [address] M75.101 (ICD-10-CM) - Nontraumatic tear of right rotator cuff, unspecified tear extent [facility] Comment on above: M75.101 (ICD-10-CM) - Nontraumatic tear of right rotator cuff, unspecified tear extent Start: 06-02-2025 End: 06-02-2025 Patient encounter procedure 06/02/2025 8:45 AM EDT Office Visit [facility] [address] [place] [address] Helio Cortez MD [address] [place] [address] RIGHT SHOULDER SX 04-20-25 [facility] Comment on above: RIGHT SHOULDER SX 04-20-25 Start: 05-05-2025 End: 05-05-2025 Patient encounter procedure 05/05/2025 11:00 AM EDT Office Visit [facility] [address] [place] [address] Helio Cortez MD [address] [place] [address] po rt shoulder sx 04/20 [facility] Comment on above: po rt shoulder sx 04/20 Start: 05-04-2025 End: 05-04-2025 Patient encounter procedure 05/04/2025 10:45 AM EDT Office Visit [facility] [address] [place] [address] Suresh Soto MD [address] [facility] [place] [phone] follow up after mri done 03/31 [facility] Comment on above: follow up after mri done 03/31 Start: 04-20-2025 End: 04-20-2025 Admission to same day surgery center 04/20/2025 9:30 AM EDT - 04/20/2025 11:00 AM EDT Surgery [facility] [address] [place] [address] Helio Cortez MD [address] [place] [address] ARTHROSCOPY SHOULDER ROTATOR CUFF (rotator cuff repair right shoulder)--Right shoulder arthroscopic rotator cuff repair, possible biceps tenodesis [facility] Comment on above: ARTHROSCOPY SHOULDER ROTATOR CUFF (rotator cuff repair right shoulder)--Right shoulder arthroscopic rotator cuff repair, possible biceps tenodesis Start: 04-20-2025 End: 04-20-2025 Arthroscopy shoulder biceps tenodesis ARTHROSCOPY SHOULDER BICEPS TENODESIS Traumatic complete tear of right rotator cuff, subsequent encounter Rupture of right proximal biceps tendon, initial encounter 04/20/2025 9:30 AM EDT [facility] Start: 04-20-2025 End: 04-20-2025 Arthroscopy shoulder rotator cuff repair ARTHROSCOPY SHOULDER ROTATOR CUFF Traumatic complete tear of right rotator cuff, subsequent encounter Rupture of right proximal biceps tendon, initial encounter 04/20/2025 9:30 AM EDT [facility] Start: 04-20-2025 Subsequent hospital visit by physician 04/20/2025 9:30 AM EDT [facility] [address] [place] [address] Helio Cortez MD [address] [place] [address] Traumatic complete tear of right rotator cuff, subsequent encounter [S46.011D], Rupture of right proximal biceps tendon, initial encounter [S46.211A] [facility] Comment on above: Traumatic complete t ear of right rotator cuff, subsequent encounter [S46.011D], Rupture of right proximal biceps tendon, initial encounter [S46.211A] Start: 04-13-2025 End: 04-13-2025 ambulatory 04/13/2025 11:20 AM EDT PAT Pre Surgical Testing [address] [place], [place] [id number] 1. ARTHROSCOPY SHOULDER ROTATOR CUFF (rotator cuff repair right shoulder)--Right shoulder arthroscopic rotator cuff repair, possible biceps tenodesis [facility] Comment on above: 1. ARTHROSCOPY SHOUL JAIME ROTATOR CUFF (rotator cuff repair right shoulder)--Right shoulder arthroscopic rotator cuff repair, possible biceps tenodesis Start: 03-31-2025 End: 03-31-2025 Patient encounter procedure 03/31/2025 12:00 PM EDT Appointment Radiology [address] [place] [address] MRI CERVICAL SPINE WO IVCON Radiology Comment on above: MRI CERVICAL SPINE W O IVCON Start: 03-24-2025 End: 03-24-2025 Patient encounter procedure 03/24/2025 1:15 PM EDT Office Visit [facility] [address] [place], [place] [address] Helio Cortez MD [address] [place] [address] F/u right shoulder- discuss surgery [facility] Comment on above: F/u right shoulder- discuss surgery Start: 03-17-2025 DIABETES SCREEN DIABETES SCREEN [facility] Start: 03-17-2025 Diabetes Screening Diabetes Screenin g [facility] Start: 02-22-2025 DIABETES SCREEN DIABETES SCREEN [facility] Start: 01-28-2025 Covid-19 Vaccine () Covid-19 Vaccine () [facility] Start: 2024 End: 2024 Patient encounter procedure 2024 1:15 PM EST Office Visit [facility] [address] [place], [place] [id number] Helio Cortez MD [address] [place] [phone] MRI Rt Shoulder [facility] Comment on above: MRI Rt Shoulder Start: 12-17-2024 End: 12-17-2024 Patient encounter procedure 12/17/2024 9:30 AM EST Appointment Radiology [address] [place], [place] [phone] MRI Shoulder WO IVCON Right Radiology Comment on above: MRI Shoulder WO IVCO N Right Start: 12-16-2024 End: 12-16-2024 Patient encounter procedure 12/16/2024 1:15 PM EST Office Visit [facility] [address] [place], [place] [phone] Helio Cortez MD [address] [place] [phone] R shoulder [facility] Comment on above: R shoulder Start: 11-19-2024 End: 11-19-2024 ambulatory 11/19/2024 8:30 AM EST OT/PT/Speech Visit [facility] [address] [facility] [address] [place], [place] [phone] Jose Restrepo, PT [address] [place] [address] Nontraumatic tear of right rotator cuff, unspecified tear extent [M75.101] [facility] Comment on above: Nontraumatic tear of right rotator cuff, unspecified tear extent [M75.101] Start: 11-12-2024 Advance Directive Discussion Advance Directive Discussion [facility] Start: 10-23-2024 End: 10-23-2024 Patient encounter procedure 10/23/2024 10:30 AM EST Office Visit [facility] [address] [place] [address] Helio Cortez MD [address] [place] [address] rt shoulder ref kat abarca [facility] Comment on above: rt shoulder ref kat etienne Start: 09-26-2024 End: 09-26-2024 Patient encounter procedure 09/26/2024 10:45 AM EST Office Visit [facility] [address] [place] [address] Stephan Yun MD [address] [place] [address] LEFT WRIST SX 09/09 [facility] Comment on above: LEFT WRIST SX 09/09 Start: 09-09-2024 End: 09-09-2024 Admission to same day surgery center 09/09/2024 2:00 PM EDT - 09/09/2024 3:00 PM EDT Surgery [facility] [address] [place] [address] Stephan Yun MD [address] [place] [address] DECOMPRESSION NERVE MEDIAN CARPAL TUNNEL [facility] Comment on above: DECOMPRESSION NERVE MEDIAN CARPAL TUNNEL Start: 09-09-2024 End: 09-09-2024 Neuroplasty &/transpos median nrv carpal tunne DECOMPRESSION NERVE MEDIAN CARPAL TUNNEL Left carpal tunnel syndrome 09/09/2024 2:00 PM EDT [facility] Start: 09-09-2024 Subsequent hospital visit by physician 09/09/2024 2:00 PM EDT Hospital Encounter [facility] [address] [facility] [address] [place] [address] Stephan Yun MD [address] [place], [place] [phone] Left carpal tunnel syndrome [G56.02] [facility] Comment on above: Left carpal tunnel s yndrome [G56.02] Start: 09-01-2024 End: 09-01-2024 Patient encounter procedure 09/01/2024 1:00 PM EDT Office Visit Orthopaedics [address] [place] [address] Tianna Gutierres PA-C [address] [place] [address] Left Carpal Tunnel Syndrome. Referred by Dr. Mclean. Orthopaedics Comment on above: Left Carpal Tunnel S yndrome. Referred by Dr. Mclean. Start: 08-22-2024 End: 08-22-2024 Patient encounter procedure 08/22/2024 11:00 AM EDT Office Visit [facility] [address] [place] [address] Stephan Yun MD [address] [place], [place] [phone] L CARPAL TUNNEL - EMG 08/18/24 [facility] Comment on above: L CARPAL TUNNEL - EM G 08/18/24 Start: 08-03-2024 DIABETES SCREEN DIABETES SCREEN [facility] Start: 07-13-2024 Covid-19 Vaccine ( season) Covid-19 Vaccine ( season) [facility] Start: 07-13-2024 Influenza vaccination Influenza Vacc ine (#1) [facility] Start: 04-11-2024 End: 04-11-2024 Patient encounter procedure 04/11/2024 10:00 AM EDT Office Visit [facility] [place] [address] [place], [place] [address] Giovanni Mclean V, DO [address] [place] [address] Right shoulder injury Family [facility] [place] Comment on above: Right shoulder injur y Start: 12-25-2023 Covid-19 Vaccine () Covid-19 Vaccine () [facility] Start: 11-12-2023 Advance Directive Discussion Advance Directive Discussion [facility] Start: 11-12-2023 Behavioral Health Screening Behavioral Health Screening [facility] Start: 09-26-2023 End: 12-26-2023 CBC W Auto Differential panel - Blood CBC + DIFF Lab Routine Hypertension, essential Expected: 09/26/2023, Expires: 12/26/2023 [facility] Work Phone: Comment on above: Expected: 09/26/2023 , Expires: 12/26/2023 Start: 09-26-2023 End: 12-26-2023 Comprehensive metabolic 2000 panel - Serum or Plasma COMP METABOLIC PANEL Lab Routine Hypertension, essential Expected: 09/26/2023, Expires: 12/26/2023 [facility] Work Phone: Comment on above: Expected: 09/26/2023 , Expires: 12/26/2023 Start: 09-26-2023 End: 12-26-2023 LIPID PANEL, NONFASTING LIPID PANEL, NONFASTING Lab Routine Hypertension, essential Expected: 09/26/2023, Expires: 12/26/2023 [facility] Work Phone: Comment on above: Expected: 09/26/2023 , Expires: 12/26/2023 Start: 09-26-2023 End: 12-26-2023 PSA/PROSTSPECAG SCRN PSA/PROSTSPECAG SCRN Lab Routine Screening for prostate cancer Expected: 09/26/2023, Expires: 12/26/2023 [facility] Work Phone: Comment on above: Expected: 09/26/2023 , Expires: 12/26/2023 Start: 07-13-2023 Covid-19 Vaccine ( season) Covid-19 Vaccine ( season) [facility] Start: 07-13-2023 Influenza vaccination Influenza Vacc ine (#1) [facility] Start: 04-03-2023 BP CONTROLLED (<130/80) BP CONTROLLE D (<130/80) [facility] Start: 03-23-2023 BP CONTROLLED (<130/80) BP CONTROLLE D (<130/80) [facility] Start: 11-12-2022 Advance Directive Discussion Advance Directive Discussion [facility] Start: 11-12-2022 Depression Assessment Depression Ass essment [facility] Start: 07-13-2022 Influenza vaccination INFLUENZA (#1) [facility] Start: 02-22-2022 End: 04-24-2022 Bacteria identified in Urine by Culture [facility] Work Phone: Comment on above: Expected: 02/22/2022 , Expires: 04/24/2022 Start: 01-25-2022 COVID-19 VACCINE (4 - Booster for Moderna series) COVID-19 VACCINE (4 - Booster for Moderna series) [facility] Start: 11-12-2021 ADVANCE DIRECTIVE DISCUSSION ADVANCE DIRECTIVE DISCUSSION [facility] Start: 11-12-2019 Medicare Annual Wellness Visit Medicare Annual Wellness Visit [facility] Start: 10-27-2019 End: 10-27-2019 Appointment Appointment [facility] Work Phone: Start: 2014 Pneumococcal Vaccine : 65+ (1 - PCV) Pneumococcal Vaccine: 65+ (1 - PCV) [facility] Start: 2014 Pneumococcal Vaccine : 65+ (1 of 1 - PCV) Pneumococcal Vaccine: 65+ (1 of 1 - PCV) [facility] Start: 2014 PNEUMOCOCCAL: 65+ (1 - PCV) PNEUMOCOCCAL: 65+ (1 - PCV) [facility] Start: 2014 PNEUMOVAX AGE 65 AND OVER WITH 5YR LOOKBACK (#1) PNEUMOVAX AGE 65 AND OVER WITH 5YR LOOKBACK (#1) [facility] Start: 2009 RSV Vaccine (1 - 1-d ose 60+ series) RSV Vaccine (1 - 1-dose 60+ series) [facility] Start: 1999 Pneumococcal Vaccine : 50+ (1 of 1 - PCV) Pneumococcal Vaccine: 50+ (1 of 1 - PCV) [facility] Start: 1999 SHINGRIX VACCINE (1 of 2) SHINGRIX VACCINE (1 of 2) [facility] Start: 1994 COLOGUARD (FIT-DNA) COLOGUARD (FIT-D NA) [facility] Start: [address] COLONOGRAPHY [facility] Start: 1994 FECAL OCCULT BLOOD FECAL OCCULT BLOO D [facility] Start: 1994 Screening for malign ant neoplasm of colon [facility] Start: 1994 SIGMOIDOSCOPY SIGMOIDOSCOPY [facility] Start: 09-25-1990 Urine microalbumin profile [facility] Start: 1967 ANNUAL PCP TEAM BALL WINDER GEREMIAS DISEASE VISIT ANNUAL PCP TEAM CHRONIC DISEASE VISIT [facility] Start: 1967 Anxiety Screening Anxiety Screening [facility] Start: 1967 BP CONTROLLED (<130/80) BP CONTROLLE D (<130/80) [facility] Start: 1967 Depression Screening Depression Scre ening [facility] Start: 1967 HEPATITIS C SCREENING HEPATITIS C [facility] Start: 1967 Hepatitis C screening Hepatitis C [facility] Start: 1961 Adult depression screening assessment DEPRESSION SCREENING [facility] End: 02-22-2023 ECG COMPLETE ECG COMPLETE ECG Routine Pre-operative examination Hypertension, essential Osteoarthritis of left knee, unspecified osteoarthritis type Benign non-nodular prostatic hyperplasia with lower urinary tract symptoms Urinary frequency 1 Occurrences starting 02/22/2022 until 02/22/2023 [facility] Work Phone: Comment on above: 1 Occurrences starti ng 02/22/2022 until 02/22/2023 End: 07-22-2025 EMG(NEURO/NI) EMG(NEURO/NI) EMG Routine Paresthesias in left hand 1 Occurrences starting 07/22/2024 until 07/22/2025 [facility] Work Phone: Comment on above: 1 Occurrences starti ng 07/22/2024 until 07/22/2025 H&P for surgery H&P FOR SURGERY Procedures Routine Traumatic complete tear of right rotator cuff, subsequent encounter Rupture of right proximal biceps tendon, initial encounter Ordered: 03/25/2025 [facility] Work Phone: Comment on above: Ordered: 03/25/2025 End: 04-26-2026 MR Cervical spine WO contrast MRI CERVICAL SPINE WO IVCON Radiology Routine Spinal stenosis of cervical region 1 Occurrences starting 03/27/2025 until 04/26/2026 [facility] Work Phone: Comment on above: 1 Occurrences starti ng 03/27/2025 until 04/26/2026 End: 01-15-2026 MR Shoulder - right WO contrast MRI SHOULDER WO IVCON RIGHT Radiology Routine Nontraumatic tear of right rotator cuff, unspecified tear extent Rupture of right proximal biceps tendon, initial encounter 1 Occurrences starting 12/16/2024 until 01/15/2026 [facility] Work Phone: Comment on above: 1 Occurrences starti ng 12/16/2024 until 01/15/2026 PT PLAN OF CARE CERTIFICATION PT PLAN OF CARE CERTIFICATION Procedures Routine Status post left knee replacement Ordered: 04/06/2022 [facility] Work Phone: Comment on above: Ordered: 04/06/2022 PT PLAN OF CARE CERTIFICATION PT PLAN OF CARE CERTIFICATION Procedures Routine Status post left knee replacement Ordered: 05/04/2022 [facility] Work Phone: Comment on above: Ordered: 05/04/2022 SARS-CoV-2 (COVID-19 ) RNA [Presence] in Respiratory specimen by STANISLAV with probe detection SELF CHECK COVID Microbiology Routine Pre-op testing Ordered: 02/23/2022 [facility] Work Phone: Comment on above: Ordered: 02/23/2022 SARS-CoV-2 (COVID-19 ) RNA [Presence] in Respiratory specimen by STANISLAV with probe detection SELF CHECK COVID Microbiology Routine Primary osteoarthritis of left knee Ordered: 02/24/2022 [facility] Work Phone: Comment on above: Ordered: 02/24/2022 End: 05-10-2025 XR Shoulder - right 3 Views XR SHOULDER GENERAL 3V OR MORE AP/TRUE AP/OTHER RIGHT Radiology Routine Right shoulder pain, unspecified chronicity 1 Occurrences starting 04/10/2024 until 05/10/2025 [facility] Work Phone: Comment on above: 1 Occurrences starti ng 04/10/2024 until 05/10/2025 XR Shoulder - right 3 Views XR SHOULDER GENERAL 3V OR MORE AP/TRUE AP/OTHER RIGHT Radiology Routine Right shoulder pain, unspecified chronicity 04/11/2024 9:50 AM EDT [facility] Work Phone: XR Wrist - left PA a nd Lateral and Oblique XR WRIST GENERAL 3V PA/LAT/OBL LEFT Radiology Routine Carpal tunnel syndrome of left wrist Ordered: 08/22/2024 [facility] Work Phone: Comment on above: Ordered: 08/22/2024 [facility] Immunizations Immunization Date Immunization Notes Care Provider Alexi [facility] 07-31-2024 influenza virus vaccine, unspecified formulation Juan Lafleur PT Work Phone: [facility] 08-24-2023 influenza virus vaccine, unspecified formulation Giovanni Mclean V, DO Work Phone: [facility] 06-22-2022 influenza virus vaccine, unspecified formulation Xr Rej Work Phone: [facility] 08-14-2020 influenza, high-dose , quadrivalent vaccine (FLUZONE HIGH DOSE QUADRIVALENT) Giovanni Mclean V, DO Work Phone: [facility] 07-25-2018 influenza, high dose seasonal, preservative-free Giovanni Mclean V, DO Work Phone: [facility] Work Phone: 05-03-2018 hepatitis A vaccine, adult dosage Giovanni Mclean V, DO Work Phone: [facility] 08-12-2014 influenza virus vaccine, whole virus Giovanni Mclean V, DO Work Phone: [facility] 09-08-2009 influenza virus vaccine, unspecified formulation Giovanni Vinay V, DO Work Phone: [facility] Work Phone: 09-25-2007 influenza virus vaccine, unspecified formulation Giovanni Vinay V, DO Work Phone: [facility] Work Phone: 09-21-2005 influenza virus vaccine, unspecified formulation Giovanni Vinay V, DO Work Phone: [facility] Work Phone: 09-25-1980 diphtheria and tetan us toxoids, adsorbed for pediatric use Giovanni Vinay V, DO Work Phone: [facility] Work Phone: 01-01-1968 trivalent poliovirus vaccine, live, oral Giovanni Vinay V, DO Work Phone: [facility] Work Phone: 08-23-1967 diphtheria and tetan us toxoids, adsorbed for pediatric use Giovanni Vinay V, DO Work Phone: [facility] Work Phone: 04-26-1966 diphtheria and tetan us toxoids, adsorbed for pediatric use Giovanni Vinay V, DO Work Phone: [facility] Work Phone: 07-30-1961 diphtheria and tetan us toxoids, adsorbed for pediatric use Giovanni Vinay V, DO Work Phone: [facility] Work Phone: 09-22-1959 diphtheria and tetan us toxoids, adsorbed for pediatric use Giovanni Vinay V, DO Work Phone: [facility] Work Phone: 09-22-1959 vaccinia (smallpox) vaccine, diluted Giovanni Vinay V, DO Work Phone: [facility] Work Phone: 02-24-1959 trivalent poliovirus vaccine, live, oral Giovanni Vinay V, DO Work Phone: [facility] Work Phone: 06-28-1956 trivalent poliovirus vaccine, live, oral Giovanni Vinay V, DO Work Phone: [facility] Work Phone: 10-10-1955 trivalent poliovirus vaccine, live, oral Giovanni Vinay V, DO Work Phone: [facility] Work Phone: 09-11-1955 trivalent poliovirus vaccine, live, oral Giovanni Vinay V, DO Work Phone: [facility] Work Phone: Payers Date Payer Category Payer Self-pay 2019 [facility] [place] [id number] 2019 Medicare MEDICARE MEDICAR E A AND B [id number] 2019-Present [phone] [place] [address] Medicare [id number] 2019 Medicare [id number] 2019 Unknown [place] SU[place]LE[place] [id number] 2019-Present [phone] [address] [place] [address] Indemnity [id number] 2019 Unknown [place] DIC[place] SUPPLEMENT [id number] 2019-Present [phone] [address] [place] [address] [employer] [id number] 2019 Unknown [id number] 2015 Medicare [id number] Unknown [id number] Social History Date Type Detail Facility Start: 07-09-2013 End: 10-10-2023 Tobacco smoking status NHIS Never smoked tobacco [facility] Start: 08-03-2021 End: 06-04-2025 Alcohol intake Current drinker of alcohol (finding) [facility] Start: 08-03-2021 End: 10-10-2023 Alcohol intake [facility] Work Phone: Start: 11-24-2019 History SDOH Alcohol Frequency 4 [facility] Start: 11-24-2019 History SDOH Alcohol Std Drinks 1 [facility] Start: 1950 Sex Assigned At Not on file [facility] Start: 11-19-2021 End: 12-19-2021 Exposure to SARS-CoV-2 (event) Yes [facility] Start: 02-22-2022 History SDOH Alcohol Comment few times a month [facility] Start: 02-12-2022 End: 03-17-2022 Exposure to SARS-CoV-2 (event) Not sure [facility] Start: 07-09-2013 End: 10-10-2023 Tobacco use and exposure Smokeless tobacco non-user [facility] Start: 11-24-2019 End: 10-10-2023 Alcohol Use Disorder Identification Test - Consumption [AUDIT-C] [facility] Work Phone: How often to you hav e a drink containing alcohol? 2-3 time sa week [facility] Work Phone: How many standard dr inks containing alcohol do you have on a typical day? 1 or 2 [facility] Work Phone: Start: 10-13-2012 Frequency of Binge Drinking Not on file [facility] Start: 09-27-2023 Gender identity Identifies as male gender (finding) [facility] Start: 09-27-2023 Sexual orientation Bisexual (finding ) [facility] NEGATED: Highlighted rowStart: 10-27-2019 End: 10-27-2019 Alcohol use Alcohol use [facility] Work Phone: NEGATED: Highlighted rowStart: 10-27-2019 End: 10-27-2019 Employment detail Employment detail [facility] Work Phone: NEGATED: Highlighted rowStart: 10-27-2019 End: 10-27-2019 How many days of moderate to strenuous exercise, like a brisk walk, did you do in the last 7 days? How many days of moderate to strenuous exercise, like a brisk walk, did you do in the last 7 days? [facility] Work Phone: NEGATED: Highlighted rowStart: 10-27-2019 End: 10-27-2019 Assertion Never smoker [facility] Work Phone: Medical Equipment Procedure Code Equipment Code Equipment Origin al Text Equipment Identifier Dates Graft Dbx Bone V oid Allograft Freeze Dried Putty 2.5ml - [id number] Start: 04-30-2020 Esteban Bn Smpx P To bra Fd - [id number] Start: 10-15-2014 Cement Simplex P Tobramycin Bone Full Dose Radiopaque Preblend Sterile - [id number] Start: 08-13-2018 Head Fem 52mm Hi p Resurf Bhr - [id number] Start: 10-15-2014 Cup Actb 58mm 52 mm Bhr Hbrd - [id number] Start: 10-15-2014 Cup Bhr 58mm 52m m Acetabular Hybrid Fixation Hip - [id number] Start: 08-13-2018 Head Bhr 52mm Fe moral Resurfacing - [id number] Start: 08-13-2018 Plate Lcp Short Bend Stainless Steel 118mm Bone Fusion 2.7/3.5mm Screw - [id number] Start: 04-30-2020 Screw Lcp 3.5mm Full Thread Stainless Steel 16mm Bone Stardrive Recess Self - [id number] Start: 04-30-2020 Screw Lcp 3.5mm 6mm Full Thread T15 Stainless Steel 18mm Bone Self Tap Low - [id number] Start: 04-30-2020 Screw Lcp 2.7mm T8 Stainless Steel 16mm Bone Self Tap Self Retaining - [id number] Start: 04-30-2020 Screw Lcp 2.7mm T8 Stainless Steel 22mm Bone Stardrive Self Tap Modular - [id number] Start: 04-30-2020 Screw Lcp 2.7mm T8 Stainless Steel 14mm Bone Self Tap Self Retaining - [id number] Start: 04-30-2020 Screw Lcp 3.5mm T15 Full Thread Cone Low Profile Stainless Steel 22mm Bone - [id number] Start: 04-30-2020 Cement Simplex P Bone Radiopaque Full Dose Sterile - [id number] Start: 03-16-2022 Component Triath rosy 6 Femoral Cruciate Retain Cemented Knee Left - [id number] Start: 03-16-2022 Insert Triathlon 6 9mm Tibial Bearing Condylar Stabilize Sterile Knee - [id number] Start: 03-16-2022 Component Triath rosy 38mm 11mm Patellar Asymmetric - [id number] Start: 03-16-2022 Baseplate Triath rosy 6 Tibial Primary Cement Knee - [id number] Start: 03-16-2022 Functional Status Date Assessment Result Facility 03-17-2022 Are you deaf, or do you have serious difficulty hearing No [facility] 03-17-2022 Are you blind, or do you have serious difficulty seeing, even when wearing glasses No [facility] 03-17-2022 Do you have serious difficulty walking or climbing stairs No [facility] 03-17-2022 Do you have difficulty dressing or bathin g No [facility] 03-17-2022 Because of a physica l, mental, or emotional condition, do you have difficulty doing errands alone such as visiting a physician's office or shopping No [facility] Mental Status Date Assessment Result Facility 03-17-2022 Because of a physica l, mental, or emotional condition, do you have serious difficulty concentrating, remembering, or making decisions No [facility] Clinical Notes 08-05-2021 to 07-06-2025 Juan Lafleur, PT - 07/06/2025 2:59 PM Juan Puentes, PT - 06/23/2025 9:54 AM Juan Puentes, PT - 06/23/2025 9:30 AM Juan Puentes PT - 06/09/2025 11:33 AM EDTPatient Instructions Note Date & Type Note Facility 07-06-2025 Note HNO ID: [id number] Author: JUAN LAFLEUR PT Service: ? Author Type: Physical Therapist Type: Progress Notes Filed: 07/07/2025 13:02 Note Text: Episode Visit Count: 6 Therapist That Will Accept/Oversee The Plan Of Care: Juan Lafleur PT Start of Care Date: 05/25/25 Onset Date: 05/25/22 Plan of Care Certification Date: 05/25/25 Next Certification Due Date: 07/20/25 Patient Identified by Name and Date of : Yes REHABILITATION AND SPORTS THERAPY PHYSICAL THERAPY TREATMENT NOTE ASSESSMENT: Shimon Amato tolerated the session with fatigue and expected muscle soreness. He demonstrated improvements in tolerance to R shoulder strengthening with weight. The patient will continue to benefit from ongoing skilled physical therapy . to progress toward set goals PLAN FOR NEXT VISIT: Continue with R shoulder strengthening and stability. There may be a delay in seeing the pt if he decides to goto [place] for 2 weeks. SUBJECTIVE: Pt reports that his shoulder is feeling good. Pain: Pain Pain Level: 0 Pain Location: Shoulder - Right OBJECTIVE MEASURES WITH LEVEL OF FUNCTION: R shoulder abduction ROM WNL without pain. TREATMENT: Therapeutic Exercise: 1: UBE 3 minutes forwards, 3 minutes backwards (1:1 throughout. DIscussed current HEP and pt provided update on condition.) 2: *Standing scaption with 1# DB 3x10 3: IR with PiTB x 10 4: IR with GTB 2x10 (GTB issued for HEP) 5: ER with GTB 3x10 6: *Shoulder abduction with 1# DB 3x10 7: *Shouler flexion with 1# DB 3x10 Skilled Intervention: Patient was educated in proper exercise technique and purpose for exercises. Reviewed and educated patient on additions/changes for home exercise program as above (*). Skilled judgment was used in selection of appropriate interventions. Correct performance of therapeutic exercises was facilitated with verbal and visual cuing. Billing Therapeutic Exercise Treatment Minutes: 32 Skilled Treatment Time Minutes (timed and untimed codes): 32 Total Session Time (minutes): 32 Session Start Time : 1455 Session Stop Time : 1527 Cherie Sen, ANNE-MARIE Lafleur, PT [facility] 07-06-2025 History of Presen t illness Narrative Episode Visit Count: 6 Therapist That Will Accept/Oversee The Plan Of Care: Juan Lafleur PT Start of Care Date: 05/25/25 Onset Date: 05/25/22 Plan of Care Certification Date: 05/25/25 Next Certification Due Date: 07/20/25 Patient Identified by Name and Date of : Yes REHABILITATION AND SPORTS THERAPY PHYSICAL THERAPY TREATMENT NOTE ASSESSMENT: Shimon Amato tolerated the session with fatigue and expected muscle soreness. He demonstrated improvements in tolerance to R shoulder strengthening with weight. The patient will continue to benefit from ongoing skilled physical therapy . to progress toward set goals PLAN FOR NEXT VISIT: Continue with R shoulder strengthening and stability. There may be a delay in seeing the pt if he decides to goto [place] for 2 weeks. SUBJECTIVE: Pt reports that his shoulder is feeling good. Pain: Pain Pain Level: 0 Pain Location: Shoulder - Right OBJECTIVE MEASURES WITH LEVEL OF FUNCTION: R shoulder abduction ROM WNL without pain. TREATMENT: Therapeutic Exercise: 1: UBE 3 minutes forwards, 3 minutes backwards (1:1 throughout. DIscussed current HEP and pt provided update on condition.) 2: *Standing scaption with 1# DB 3x10 3: IR with PiTB x 10 4: IR with GTB 2x10 (GTB issued for HEP) 5: ER with GTB 3x10 6: *Shoulder abduction with 1# DB 3x10 7: *Shouler flexion with 1# DB 3x10 Skilled Intervention: Patient was educated in proper exercise technique and purpose for exercises. Reviewed and educated patient on additions/changes for home exercise program as above (*). Skilled judgment was used in selection of appropriate interventions. Correct performance of therapeutic exercises was facilitated with verbal and visual cuing. Billing Therapeutic Exercise Treatment Minutes: 32 Skilled Treatment Time Minutes (timed and untimed codes): 32 Total Session Time (minutes): 32 Session Start Time : 1455 Session Stop Time : 1527 ANNE-MARIE De La Rosa PT documented in this encounter [facility] 06-23-2025 History of Presen t illness Narrative Program_ID:[id number] Access Code: [email or web address] URL: [email or web address] Date: 06-23-2025 Prepared By: Juan Lafleur Program Notes Exercises - Seated Scapular Retraction - 1 x daily - 7 x weekly - 4 sets - 10 reps - Towel Roll Squeeze - 1 x daily - 7 x weekly - 4 sets - 10 reps - Standing Shoulder Extension with Dowel - 1 x daily - 7 x weekly - 4 sets - 10 reps - Standing Shoulder Abduction AAROM with Dowel - 1 x daily - 7 x weekly - 4 sets - 10 reps - Standing Shoulder Row with Anchored Resistance - 1 x daily - 7 x weekly - 4 sets - 10 reps - Standing Shoulder External and Internal Rotation AROM - 1 x daily - 7 x weekly - 4 sets - 10 reps - Seated Shoulder Flexion AAROM with Dowel - 1 x daily - 7 x weekly - 4 sets - 10 reps - Isometric Shoulder Abduction at Wall - 1 x daily - 7 x weekly - 4 sets - 10 reps - Standing Isometric Shoulder External Rotation with Doorway - 1 x daily - 7 x weekly - 4 sets - 10 reps - Single Arm Scaption with Resistance - 1 x daily - 7 x weekly - 4 sets - 10 reps Images from the original note were not included. Episode Visit Count: 5 Therapist That Will Accept/Oversee The Plan Of Care: Juan Lafleur PT Start of Care Date: 05/25/25 Onset Date: 05/25/22 Plan of Care Certification Date: 05/25/25 Next Certification Due Date: 07/20/25 Patient Identified by Name and Date of : Yes REHABILITATION AND SPORTS THERAPY PHYSICAL THERAPY PROGRESS REPORT PLAN OF CARE UPDATE: Assessment: Shimon Amato demonstrates difficulty with R shoulder weakness and improvements in shoulder AROM, pain intensity, and level of strength in the RTC's. The patient has progressed toward goals. Patient continues to present with impairments in independence in exercise, overall function, and strength that interfere with reaching behind back, reaching overhead, carrying, lifting . Current prognosis is Good due to: current objective clinical presentation . The patient will benefit from continued skilled therapy services to meet the updated goals for this plan of care as noted below. Updated 06/23/25 Goals for Episode of Care: established 05/25/25 [place] in home exercise program.- met Patient will decrease pain rating by 2 points to meet minimal clinical important difference for numeric pain rating scale. - met Perform work duties without pain. - not met Increase ROM of the RUE to WNL for ease of dressing, grooming, and reaching overhead into cabinets - met Increased strength of RUE to 5/5 for return to PLOF and lifting heavier Objects - Progressing Patient Goals: Return to PLOF Time Frame for Goals and Treatment : 09/14/25 Patient Goals: Return to PLOF Planned Interventions, Frequency, and Duration: 1x/week, 4 weeks Total Number of Visits Planned: 4 Patient to be seen for Therapeutic exercise (94923), Neuromuscular re-education (45618), Manual therapy (00439), Therapeutic activities (93274), Self-fci management (78640), Gait Training (08530), Patient/Family/Caregiver Education PLAN FOR NEXT VISIT: Loading of the RTCs SUBJECTIVE: Accidentally lifted the bike into the car and his shoulder felt a little pain from this. No popping or clicking. No lingering pain. Patient Goals: Return to PLOF Functional Limitations: reaching behind back, reaching overhead, carrying, lifting Prior Level of Function: Independent without limitations Intake Information: Prescription present Previous Treatment: Surgery Pain: Pain Pain Level: 1 Pain Location: Shoulder - Right PROMIS Scales 05/25/2025 Higher is Better Phys Func - T Score 43 (mild dysfunction) Phys Func - Percentile 24 Self-Eff Symptom - T Score 53 (Average) Self-Eff Symptom - Percentile 62 T-Score and Percentile Interpretation T-scores: mean of general population = 50. 5 points is clinically meaningfully difference Percentiles provide an indication of how the patient's score ranks in relation to the general population. Higher percentile rankings indicate better function/quality of life. 50th percentile is the average of the general population and indicates half of respondents had a worse score. OBJECTIVE MEASURES WITH LEVEL OF FUNCTION: UE AROM R UE AROM: WNL L UE AROM: WNL R Shoulder ABduction: (Some pain around 90 degrees) R Shoulder Internal Rotation (Functional): thumb to T10 L Shoulder Internal Rotation (Functional): Thumb to T7 UE and Cervical Strength Strength Tested: Shoulder All L UE Strength: Grossly 5/5 R Shoulder Flexion: 3+/5 R Shoulder Abduction (C5): 3+/5 R Shoulder Internal Rotation: 4+/5 R Shoulder External Rotation: 4+/5 TREATMENT: Therapeutic Exercise: 1: All objective measures taken 2: UBE 2 min F and 2 min B (1:1 time spent and subjective taken) 3: Standing scaption lvl 1 band 3 x 8 4: Standing shoulder ER lvl 2 band x 12 5: Standing shoulder IR lvl 2 band x 12 Skilled Intervention: Patient was educated in proper exercise technique and purpose for exercises. Provided written instruction for home exercise program to facilitate proper performance and compliance. Correct performance of therapeutic exercises was facilitated with verbal cuing. Billing Therapeutic Exercise Treatment Minutes: 40 Skilled Treatment Time Minutes (timed and untimed codes): 40 Total Session Time (minutes): 40 Session Start Time : 929 Session Stop Time : 1010 Juan Lafleur PT documented in this encounter [facility] 06-23-2025 Note HNO ID: [id number] Author: JUAN LAFLEUR PT Service: ? Author Type: Physical Therapist Type: Progress Notes Filed: 06/23/2025 10:12 Note Text: Episode Visit Count: 5 Therapist That Will Accept/Oversee The Plan Of Care: Juan Lafleur PT Start of Care Date: 05/25/25 Onset Date: 05/25/22 Plan of Care Certification Date: 05/25/25 Next Certification Due Date: 07/20/25 Patient Identified by Name and Date of : Yes REHABILITATION AND SPORTS THERAPY PHYSICAL THERAPY PROGRESS REPORT PLAN OF CARE UPDATE: Assessment: Shimon Amato demonstrates difficulty with R shoulder weakness and improvements in shoulder AROM, pain intensity, and level of strength in the RTC's. The patient has progressed toward goals. Patient continues to present with impairments in independence in exercise, overall function, and strength that interfere with reaching behind back, reaching overhead, carrying, lifting . Current prognosis is Good due to: current objective clinical presentation . The patient will benefit from continued skilled therapy services to meet the updated goals for this plan of care as noted below. Updated 06/23/25 Goals for Episode of Care: established 05/25/25 [place] in home exercise program.- met Patient will decrease pain rating by 2 points to meet minimal clinical important difference for numeric pain rating scale. - met Perform work duties without pain. - not met Increase ROM of the RUE to WNL for ease of dressing, grooming, and reaching overhead into cabinets - met Increased strength of RUE to 5/5 for return to PLOF and lifting heavier Objects - Progressing Patient Goals: Return to PLOF Time Frame for Goals and Treatment : 09/14/25 Patient Goals: Return to PLOF Planned Interventions, Frequency, and Duration: 1x/week, 4 weeks Total Number of Visits Planned: 4 Patient to be seen for Therapeutic exercise (15599), Neuromuscular re-education (99281), Manual therapy (70247), Therapeutic activities (20691), Self-fci management (18741), Gait Training (46959), Patient/Family/Caregiver Education PLAN FOR NEXT VISIT: Loading of the RTCs SUBJECTIVE: Accidentally lifted the bike into the car and his shoulder felt a little pain from this. No popping or clicking. No lingering pain. Patient Goals: Return to PLOF Functional Limitations: reaching behind back, reaching overhead, carrying, lifting Prior Level of Function: Independent without limitations Intake Information: Prescription present Previous Treatment: Surgery Pain: Pain Pain Level: 1 Pain Location: Shoulder - Right PROMIS Scales 05/25/2025 Higher is Better Phys Func - T Score 43 (mild dysfunction) Phys Func - Percentile 24 Self-Eff Symptom - T Score 53 (Average) Self-Eff Symptom - Percentile 62 T-Score and Percentile Interpretation T-scores: mean of general population = 50. 5 points is clinically meaningfully difference Percentiles provide an indication of how the patient's score ranks in relation to the general population. Higher percentile rankings indicate better function/quality of life. 50th percentile is the average of the general population and indicates half of respondents had a worse score. OBJECTIVE MEASURES WITH LEVEL OF FUNCTION: UE AROM R UE AROM: WNL L UE AROM: WNL R Shoulder ABduction: (Some pain around 90 degrees) R Shoulder Internal Rotation (Functional): thumb to T10 L Shoulder Internal Rotation (Functional): Thumb to T7 UE and Cervical Strength Strength Tested: Shoulder All L UE Strength: Grossly 5/5 R Shoulder Flexion: 3+/5 R Shoulder Abduction (C5): 3+/5 R Shoulder Internal Rotation: 4+/5 R Shoulder External Rotation: 4+/5 TREATMENT: Therapeutic Exercise: 1: All objective measures taken 2: UBE 2 min F and 2 min B (1:1 time spent and subjective taken) 3: Standing scaption lvl 1 band 3 x 8 4: Standing shoulder ER lvl 2 band x 12 5: Standing shoulder IR lvl 2 band x 12 Skilled Intervention: Patient was educated in proper exercise technique and purpose for exercises. Provided written instruction for home exercise program to facilitate proper performance and compliance. Correct performance of therapeutic exercises was facilitated with verbal cuing. Billing Therapeutic Exercise Treatment Minutes: 40 Skilled Treatment Time Minutes (timed and untimed codes): 40 Total Session Time (minutes): 40 Session Start Time : 929 Session Stop Time : 1010 Juan Lafleur PT [facility] 06-16-2025 Note HNO ID: [id number] Author: JUAN LAFLEUR PT Service: ? Author Type: Physical Therapist Type: Progress Notes Filed: 06/16/2025 10:58 Note Text: Episode Visit Count: 4 Therapist That Will Accept/Oversee The Plan Of Care: Juan Lafleur PT Start of Care Date: 05/25/25 Onset Date: 05/25/22 Plan of Care Certification Date: 05/25/25 Next Certification Due Date: 07/20/25 Patient Identified by Name and Date of : Yes REHABILITATION AND SPORTS THERAPY PHYSICAL THERAPY TREATMENT NOTE ASSESSMENT: Shimon Amato tolerated the session with fatigue and expected muscle soreness. He demonstrated improvements in tolerance to banded exercises. The patient will continue to benefit from ongoing skilled physical therapy to progress toward set goals. PLAN FOR NEXT VISIT: Asses response with PiTB strengthening. Give banded exercsies for HEP. SUBJECTIVE: Pt reports that his HEP is going well. Pain: Pain Pain Level: 2 Pain Location: Shoulder - Right Post Treatment Pain Post Treatment Pain Level: No Change OBJECTIVE MEASURES WITH LEVEL OF FUNCTION: R AROM flexion WNL. TREATMENT: Therapeutic Exercise: 1: Seated AROM shoulder flexion 2x10 2: Seated AROM abduction x10 (some mild pain at 90 degrees, but then would go away once above that range) 3: PiTB IR 2x10 4: PiTB ER 2x10 5: PiTB extension 2x10 6: Standing abduction iso at wall with ball 2x10 with 5 second holds Skilled Intervention: Patient was educated in proper exercise technique and purpose for exercises. Skilled judgment was used in selection of appropriate interventions. Correct performance of therapeutic exercises was facilitated with verbal and visual cuing. Billing Therapeutic Exercise Treatment Minutes: 30 Skilled Treatment Time Minutes (timed and untimed codes): 30 Total Session Time (minutes): 30 Session Start Time : 1015 Session Stop Time : 1045 Cherie Sen, CELL CHANGER Juan Lafleur, PT [facility] 06-09-2025 History of Presen t illness Narrative Program_ID:[id number] Access Code: [email or web address] URL: [email or web address] Date: 06-09-2025 Prepared By: Juan Lafleur Program Notes Exercises - Seated Scapular Retraction - 1 x daily - 7 x weekly - 4 sets - 10 reps - Towel Roll Squeeze - 1 x daily - 7 x weekly - 4 sets - 10 reps - Standing Shoulder Extension with Dowel - 1 x daily - 7 x weekly - 4 sets - 10 reps - Standing Shoulder Abduction AAROM with Dowel - 1 x daily - 7 x weekly - 4 sets - 10 reps - Standing Shoulder Row with Anchored Resistance - 1 x daily - 7 x weekly - 4 sets - 10 reps - Standing Shoulder External and Internal Rotation AROM - 1 x daily - 7 x weekly - 4 sets - 10 reps - Seated Shoulder Flexion AAROM with Dowel - 1 x daily - 7 x weekly - 4 sets - 10 reps - Isometric Shoulder Abduction at Wall - 1 x daily - 7 x weekly - 4 sets - 10 reps - Standing Isometric Shoulder External Rotation with Doorway - 1 x daily - 7 x weekly - 4 sets - 10 reps Episode Visit Count: 3 Therapist That Will Accept/Oversee The Plan Of Care: Juan Lafleur PT Start of Care Date: 05/25/25 Onset Date: 05/25/22 Plan of Care Certification Date: 05/25/25 Next Certification Due Date: 07/20/25 Patient Identified by Name and Date of : Yes REHABILITATION AND SPORTS THERAPY PHYSICAL THERAPY TREATMENT NOTE ASSESSMENT: Shimon Amato tolerated the session with expected muscle soreness. He demonstrated improved shoulder AAROM. The patient will continue to benefit from ongoing skilled physical therapy to progress toward set goals. PLAN FOR NEXT VISIT: Continue following RCR rehab protocol SUBJECTIVE: Minimal pain today. Exercises are going pretty good. Pain: Pain Pain Level: 1 Pain Location: Shoulder - Right OBJECTIVE MEASURES WITH LEVEL OF FUNCTION: R shoulder AAROM abduction is 130 degrees TREATMENT: Therapeutic Exercise: 1: Seated shoulder flexion AAROM x 10 flexion then x 10 abd 2: Shoulder flexion AAROM wand 2 x 10 3: Shoulder abd AAROM wand 2 x 10 4: Shoulder extension AAROM wand 2 x 10 5: Shoulder ER AROM seated 2 x 10 RUE 7: Shoulder abd iso 2 x 10 holding 3 sec 8: Shoulder ER iso at wall 2 x 10 Skilled Intervention: Patient was educated in proper exercise technique and purpose for exercises. Correct performance of therapeutic exercises was facilitated with verbal cuing. Billing Therapeutic Exercise Treatment Minutes: 42 Skilled Treatment Time Minutes (timed and untimed codes): 42 Total Session Time (minutes): 42 Session Start Time : 1058 Session Stop Time : 1140 Juan Lafleur PT documented in this encounter [facility] 06-09-2025 Note HNO ID: [id number] Author: JUAN LAFLEUR PT Service: ? Author Type: Physical Therapist Type: Progress Notes Filed: 06/09/2025 12:38 Note Text: Episode Visit Count: 3 Therapist That Will Accept/Oversee The Plan Of Care: Juan Lafleur PT Start of Care Date: 05/25/25 Onset Date: 05/25/22 Plan of Care Certification Date: 05/25/25 Next Certification Due Date: 07/20/25 Patient Identified by Name and Date of : Yes REHABILITATION AND SPORTS THERAPY PHYSICAL THERAPY TREATMENT NOTE ASSESSMENT: Shimon Amaot tolerated the session with expected muscle soreness. He demonstrated improved shoulder AAROM. The patient will continue to benefit from ongoing skilled physical therapy to progress toward set goals. PLAN FOR NEXT VISIT: Continue following RCR rehab protocol SUBJECTIVE: Minimal pain today. Exercises are going pretty good. Pain: Pain Pain Level: 1 Pain Location: Shoulder - Right OBJECTIVE MEASURES WITH LEVEL OF FUNCTION: R shoulder AAROM abduction is 130 degrees TREATMENT: Therapeutic Exercise: 1: Seated shoulder flexion AAROM x 10 flexion then x 10 abd 2: Shoulder flexion AAROM wand 2 x 10 3: Shoulder abd AAROM wand 2 x 10 4: Shoulder extension AAROM wand 2 x 10 5: Shoulder ER AROM seated 2 x 10 RUE 7: Shoulder abd iso 2 x 10 holding 3 sec 8: Shoulder ER iso at wall 2 x 10 Skilled Intervention: Patient was educated in proper exercise technique and purpose for exercises. Correct performance of therapeutic exercises was facilitated with verbal cuing. Billing Therapeutic Exercise Treatment Minutes: 42 Skilled Treatment Time Minutes (timed and untimed codes): 42 Total Session Time (minutes): 42 Session Start Time : 1058 Session Stop Time : 1140 Juan Lafleur PT [facility] 06-04-2025 Note HNO ID: [id number] Author: HELIO CORTEZ MD Service: ? Author Type: Physician Type: Progress Notes Filed: 06/04/2025 10:45 Note Text: Reason for Visit/Chief Complaint: Routine Post-Op Visit Date of Surgery: 04/20/25 Surgery Performed: Right shoulder arthroscopic rotator cuff repair, debridement biceps tendon rupture and superior labrum History of Present Illness: He states overall he continues to do very well. He presents in his sling. He has had 2 physical therapy visits. Patient presents 7 weeks status post the above procedure. His pain is overall very controlled. Physical Exam Right Shoulder Incisions well-healed with no signs of erythema or drainage. Passive forward elevation 160 degrees. External rotation 50 degrees. Internal rotation L5. Imaging: None Assessment: S/p above stated procedure, doing well Plan: 1) Pain control-Tylenol/ibuprofen as needed 2) PT-continue physical therapy focused on passive range of motion and then transitioning to active range of motion 3) Immobilization-okay to discontinue sling. 4) Usuqeb-tpfeojq-jz lifting more than 5 pounds 5) Follow-up- Patient to follow up in 6 weeks Helio Cortez MD 06/04/2025 10:45 AM [facility] 06-04-2025 History of Presen t illness Narrative Reason for Visit/Chief Complaint: Routine Post-Op Visit Date of Surgery: 04/20/25 Surgery Performed: Right shoulder arthroscopic rotator cuff repair, debridement biceps tendon rupture and superior labrum History of Present Illness: He states overall he continues to do very well. He presents in his sling. He has had 2 physical therapy visits. Patient presents 7 weeks status post the above procedure. His pain is overall very controlled. Physical Exam Right Shoulder Incisions well-healed with no signs of erythema or drainage. Passive forward elevation 160 degrees. External rotation 50 degrees. Internal rotation L5. Imaging: None Assessment: S/p above stated procedure, doing well Plan: 1) Pain control-Tylenol/ibuprofen as needed 2) PT-continue physical therapy focused on passive range of motion and then transitioning to active range of motion 3) Immobilization-okay to discontinue sling. 4) Ktlvei-yfimglk-uc lifting more than 5 pounds 5) Follow-up- Patient to follow up in 6 weeks Helio Cortez MD 06/04/2025 10:45 AM documented in this encounter [facility] 06-02-2025 History of Presen t illness Narrative Program_ID:[id number] Access Code: [email or web address] URL: [email or web address] Date: 06-02-2025 Prepared By: Juan Lafleur Program Notes Exercises - Seated Scapular Retraction - 1 x daily - 7 x weekly - 4 sets - 10 reps - Towel Roll Squeeze - 1 x daily - 7 x weekly - 4 sets - 10 reps - Standing Shoulder Extension with Dowel - 1 x daily - 7 x weekly - 4 sets - 10 reps - Standing Shoulder Abduction AAROM with Dowel - 1 x daily - 7 x weekly - 4 sets - 10 reps - Standing Shoulder Row with Anchored Resistance - 1 x daily - 7 x weekly - 4 sets - 10 reps - Standing Shoulder External and Internal Rotation AROM - 1 x daily - 7 x weekly - 4 sets - 10 reps - Seated Shoulder Flexion AAROM with Dowel - 1 x daily - 7 x weekly - 4 sets - 10 reps Episode Visit Count: 2 Therapist That Will Accept/Oversee The Plan Of Care: Juan Lafleur PT Start of Care Date: 05/25/25 Onset Date: 05/25/22 Plan of Care Certification Date: 05/25/25 Next Certification Due Date: 07/20/25 Patient Identified by Name and Date of : Yes REHABILITATION AND SPORTS THERAPY PHYSICAL THERAPY TREATMENT NOTE ASSESSMENT: Shimon Amato tolerated the session with expected muscle soreness. He demonstrated good form with all therapeutic exercises. The patient will continue to benefit from ongoing skilled physical therapy to progress toward set goals. PLAN FOR NEXT VISIT: Phase 2 of rehab protocol for RCR SUBJECTIVE: The shoulder is doing well. Pain: Pain Pain Location: Shoulder - Right OBJECTIVE MEASURES WITH LEVEL OF FUNCTION: UE PROM R Shoulder Flex: 155 Degrees R Shoulder ABduction: 130 Degrees (Pain occurs beyond 130) TREATMENT: Therapeutic Exercise: 1: Seated shoulder flexion AAROM x 10 flexion then x 10 abd 2: Shoulder flexion AAROM wand 2 x 10 3: Shoulder abd AAROM wand 2 x 10 4: Shoulder extension AAROM wand 2 x 10 5: Shoulder ER AROM seated 2 x 10 RUE 6: Standing row lvl 2 band 2 x 10 Skilled Intervention: Patient was educated in proper exercise technique and purpose for exercises. Correct performance of therapeutic exercises was facilitated with verbal cuing. Billing Therapeutic Exercise Treatment Minutes: 41 Skilled Treatment Time Minutes (timed and untimed codes): 41 Total Session Time (minutes): 41 Session Start Time : 748 Session Stop Time : 829 Juan aLfleur PT documented in this encounter [facility] 06-02-2025 Note HNO ID: [id number] Author: JUAN LAFLEUR PT Service: ? Author Type: Physical Therapist Type: Progress Notes Filed: 06/02/2025 08:31 Note Text: Episode Visit Count: 2 Therapist That Will Accept/Oversee The Plan Of Care: Juan Lafleur PT Start of Care Date: 05/25/25 Onset Date: 05/25/22 Plan of Care Certification Date: 05/25/25 Next Certification Due Date: 07/20/25 Patient Identified by Name and Date of : Yes REHABILITATION AND SPORTS THERAPY PHYSICAL THERAPY TREATMENT NOTE ASSESSMENT: Shimon Amato tolerated the session with expected muscle soreness. He demonstrated good form with all therapeutic exercises. The patient will continue to benefit from ongoing skilled physical therapy to progress toward set goals. PLAN FOR NEXT VISIT: Phase 2 of rehab protocol for RCR SUBJECTIVE: The shoulder is doing well. Pain: Pain Pain Location: Shoulder - Right OBJECTIVE MEASURES WITH LEVEL OF FUNCTION: UE PROM R Shoulder Flex: 155 Degrees R Shoulder ABduction: 130 Degrees (Pain occurs beyond 130) TREATMENT: Therapeutic Exercise: 1: Seated shoulder flexion AAROM x 10 flexion then x 10 abd 2: Shoulder flexion AAROM wand 2 x 10 3: Shoulder abd AAROM wand 2 x 10 4: Shoulder extension AAROM wand 2 x 10 5: Shoulder ER AROM seated 2 x 10 RUE 6: Standing row lvl 2 band 2 x 10 Skilled Intervention: Patient was educated in proper exercise technique and purpose for exercises. Correct performance of therapeutic exercises was facilitated with verbal cuing. Billing Therapeutic Exercise Treatment Minutes: 41 Skilled Treatment Time Minutes (timed and untimed codes): 41 Total Session Time (minutes): 41 Session Start Time : 748 Session Stop Time : 829 Juan Lafleur PT [facility] 05-25-2025 History of Presen t illness Narrative Program_ID:[id number] Access Code: [email or web address] URL: [email or web address] Date: 05-25-2025 Prepared By: Juan Lafleur Program Notes Exercises - Supine Shoulder Flexion Extension AAROM with Dowel - 1 x daily - 6 x weekly - 4 sets - 10 reps - Supine Shoulder External Rotation with Dowel - 1 x daily - 7 x weekly - 4 sets - 10 reps - Seated Scapular Retraction - 1 x daily - 7 x weekly - 4 sets - 10 reps - Towel Roll Squeeze - 1 x daily - 7 x weekly - 4 sets - 10 reps Images from the original note were not included. Episode Visit Count: 1 Therapist That Will Accept/Oversee The Plan Of Care: Juan Lafleur PT Start of Care Date: 05/25/25 Onset Date: 05/25/22 Plan of Care Certification Date: 05/25/25 Next Certification Due Date: 07/20/25 Patient Identified by Name and Date of : Yes REHABILITATION AND SPORTS THERAPY PHYSICAL THERAPY EVALUATION PLAN OF CARE: Assessment: Shimon Amato presents with diagnosis of RCR repair on 04/20/2025 that interferes with reaching behind back, reaching overhead, carrying, lifting . The patient presents with impairments in ADL's, independence in exercise, overall function, range of motion, and strength. PROMIS (Patient-Reported Outcomes Measurement Information System) scores were reviewed and identified as a rehabilitation concern. Prognosis for therapy is Good due to: current objective clinical presentation . The patient will benefit from skilled therapy services to meet the goals established for this plan of care as noted below. Goals for Episode of Care: established 05/25/25 [place] in home exercise program. Patient will decrease pain rating by 2 points to meet minimal clinical important difference for numeric pain rating scale. Perform work duties without pain. Increase ROM of the RUE to WNL for ease of dressing, grooming, and reaching overhead into cabinets Increased strength of RUE to 5/5 for return to PLOF and lifting heavier objects Patient Goals: Return to PLOF Time Frame for Goals and Treatment : 09/14/25 Planned Interventions, Frequency, and Duration: Current Frequency: 1x/week Duration: 4 weeks Total Number of Visits Planned: 4 Planned Treatment Interventions: Therapeutic exercise (24269), Neuromuscular re-education (54923), Manual therapy (09578), Therapeutic activities (02482), Self-fci management (54527), Gait Training (76545), Patient/Family/Caregiver Education PLAN FOR NEXT VISIT: RCR protocol Patient demonstrates good understanding of plan of care and treatment. The above goals and plan of care were discussed and agreed upon by patient/family. SUBJECTIVE: The sleep is not great. RTC repair on 04/20. Patient Goals: Return to PLOF Functional Limitations: reaching behind back, reaching overhead, carrying, lifting Prior Level of Function: Independent without limitations Intake Information: Prescription present Previous Treatment: Surgery Pain: Pain Pain Level: 2 Pain Location: Shoulder - Right Description: Dull PROMIS Scales 05/25/2025 Higher is Better Phys Func - T Score 43 (mild dysfunction) Phys Func - Percentile 24 Self-Eff Symptom - T Score 53 (Average) Self-Eff Symptom - Percentile 62 T-scores: mean of general population = 50. 5 points is clinically meaningfully difference Percentiles provide an indication of how the patient's score ranks in relation to the general population. Higher percentile rankings indicate better function/quality of life. 50th percentile is the average of the general population and indicates half of respondents had a worse score. OBJECTIVE MEASURES WITH LEVEL OF FUNCTION: Cervical Spine ROM Cervical ROM : (WFL) UE AROM R Shoulder Flex: 100 Degrees (some pain with this) R Shoulder External Rotation: 45 Degrees (arm at side) UE PROM R Shoulder Flex: 130 Degrees UE and Cervical Strength R UE Strength: Deferred due to post op status L UE Strength: Grossly 5/5 Education: Education Learning Preferences: Demonstration, Explanation, Performance, Printed Materials Barriers: None Learning/educational needs: Home exercise program, Plan of Care, Changes in Plan of Care Education Provided: Yes, see treatment interventions for education provided Education Provided To: Patient Education Mode/Type: Demonstration, Explanation/Discussion, Literature/Printed Materials, Performance Response to Education/Teach Back: States/Identifies, Return Demonstration TREATMENT: PT Treatment Interventions: Therapeutic Exercise, Self-[facility] Management Evaluation Therapeutic Exercise: 1: Discussed exam findings, purpose of the HEP and the HEP handout was provided to the pt. HEP discussed in detail with how to safely and properly perform each therapeutic exercise. 2: Supine wand flexion AAROM x 10 3: Supine wand Er AAROM x 10 4: Seated scapular retractions x 10 5: Hand squeezes into towel x 10 Skilled Intervention: Patient was educated in proper exercise technique and purpose for exercises. Correct performance of therapeutic exercises was facilitated with verbal and visual cuing. Self-[facility] Management: 1: DIscussed proper use of sling for the post-operative limb. Discussed wearing sling at all times unless directed otherwise by the surgeon. Explained that the sling may be removed to complete physical therapy exercises at the clinic as well as at home. Discussed avoiding AROM of the post-operative shoulder and explained what PROM is and how this will be the focus of phase 1 of the surgeons rehab protocol. No lifting unless directed otherwise by the surgeon. Skilled Intervention: Skilled judgment in the selection of proper modification for activity of daily living/home management based on clinical presentation, deficits, and needs. Activity progression based on professional judgement. Billing * Evaluation Low Complexity: 1 Unit Therapeutic Exercise Treatment Minutes: 16 Self-Care/Home Management Treatment Minutes: 4 Skilled Treatment Time Minutes (timed and untimed codes): 37 Total Session Time (minutes): 37 Session Start Time : 1129 Session Stop Time : 1206 Juan Lafleur PT documented in this encounter [facility] 05-25-2025 Note HNO ID: [id number] Author: JUAN LAFLEUR PT Service: ? Author Type: Physical Therapist Type: Progress Notes Filed: 05/25/2025 12:12 Note Text: Episode Visit Count: 1 Therapist That Will Accept/Oversee The Plan Of Care: Juan Lafleur PT Start of Care Date: 05/25/25 Onset Date: 05/25/22 Plan of Care Certification Date: 05/25/25 Next Certification Due Date: 07/20/25 Patient Identified by Name and Date of : Yes REHABILITATION AND SPORTS THERAPY PHYSICAL THERAPY EVALUATION PLAN OF CARE: Assessment: Shimon Amato presents with diagnosis of RCR repair on 04/20/2025 that interferes with reaching behind back, reaching overhead, carrying, lifting . The patient presents with impairments in ADL's, independence in exercise, overall function, range of motion, and strength. PROMIS? (Patient-Reported Outcomes Measurement Information System) scores were reviewed and identified as a rehabilitation concern. Prognosis for therapy is Good due to: current objective clinical presentation . The patient will benefit from skilled therapy services to meet the goals established for this plan of care as noted below. Goals for Episode of Care: established 05/25/25 [place] in home exercise program. Patient will decrease pain rating by 2 points to meet minimal clinical important difference for numeric pain rating scale. Perform work duties without pain. Increase ROM of the RUE to WNL for ease of dressing, grooming, and reaching overhead into cabinets Increased strength of RUE to 5/5 for return to PLOF and lifting heavier objects Patient Goals: Return to PLOF Time Frame for Goals and Treatment : 09/14/25 Planned Interventions, Frequency, and Duration: Current Frequency: 1x/week Duration: 4 weeks Total Number of Visits Planned: 4 Planned Treatment Interventions: Therapeutic exercise (93369), Neuromuscular re-education (15831), Manual therapy (63128), Therapeutic activities (66587), Self-fci management (16985), Gait Training (20140), Patient/Family/Caregiver Education PLAN FOR NEXT VISIT: RCR protocol Patient demonstrates good understanding of plan of care and treatment. The above goals and plan of care were discussed and agreed upon by patient/family. SUBJECTIVE: The sleep is not great. RTC repair on 04/20. Patient Goals: Return to PLOF Functional Limitations: reaching behind back, reaching overhead, carrying, lifting Prior Level of Function: Independent without limitations Intake Information: Prescription present Previous Treatment: Surgery Pain: Pain Pain Level: 2 Pain Location: Shoulder - Right Description: Dull PROMIS Scales 05/25/2025 Higher is Better Phys Func - T Score 43 (mild dysfunction) Phys Func - Percentile 24 Self-Eff Symptom - T Score 53 (Average) Self-Eff Symptom - Percentile 62 T-scores: mean of general population = 50. 5 points is clinically meaningfully difference Percentiles provide an indication of how the patient's score ranks in relation to the general population. Higher percentile rankings indicate better function/quality of life. 50th percentile is the average of the general population and indicates half of respondents had a worse score. OBJECTIVE MEASURES WITH LEVEL OF FUNCTION: Cervical Spine ROM Cervical ROM : (WFL) UE AROM R Shoulder Flex: 100 Degrees (some pain with this) R Shoulder External Rotation: 45 Degrees (arm at side) UE PROM R Shoulder Flex: 130 Degrees UE and Cervical Strength R UE Strength: Deferred due to post op status L UE Strength: Grossly 5/5 Education: Education Learning Preferences: Demonstration, Explanation, Performance, Printed Materials Barriers: None Learning/educational needs: Home exercise program, Plan of Care, Changes in Plan of Care Education Provided: Yes, see treatment interventions for education provided Education Provided To: Patient Education Mode/Type: Demonstration, Explanation/Discussion, Literature/Printed Materials, Performance Response to Education/Teach Back: States/Identifies, Return Demonstration TREATMENT: PT Treatment Interventions: Therapeutic Exercise, [facility] Management Evaluation Therapeutic Exercise: 1: Discussed exam findings, purpose of the HEP and the HEP handout was provided to the pt. HEP discussed in detail with how to safely and properly perform each therapeutic exercise. 2: Supine wand flexion AAROM x 10 3: Supine wand Er AAROM x 10 4: Seated scapular retractions x 10 5: Hand squeezes into towel x 10 Skilled Intervention: Patient was educated in proper exercise technique and purpose for exercises. Correct performance of therapeutic exercises was facilitated with verbal and visual cuing. [facility] Management: 1: DIscussed proper use of sling for the post-operative limb. Discussed wearing sling at all times unless directed otherwise by the surgeon. Explained that the sling may be removed to complete physica (more content not included)... [facility] 05-05-2025 Note HNO ID: [id number] Author: HELIO CORTEZ MD Service: ? Author Type: Physician Type: Progress Notes Filed: 05/05/2025 11:35 Note Text: Reason for Visit/Chief Complaint: Routine Post-Op Visit Date of Surgery: 04/20/25 Surgery Performed: Right shoulder arthroscopic rotator cuff repair, debridement biceps tendon rupture and superior labrum History of Present Illness: Patient is status post above-stated procedure. Overall doing well. Denies any sensorimotor changes or wound issues. Pain controlled. Patient is compliant with sling. Has not begun physical therapy per instruction. No other complaints at this time Physical Exam Right Shoulder No gross swelling or epitrochlear lymphadenopathy appreciated Sensation grossly intact to all dermatomal distributions Radial pulse palpable Incisions healing well with no redness, drainage or signs of infection. Steri-strips in place Range of motion deferred at this time. Fires deltoid No neurological deficits appreciated Imaging: None Assessment: S/p above stated procedure, doing well Plan: 1) Pain control- Continue pain medications as prescribed. Risks of medications discussed 2) PT- None at this time per our instruction. Ok to begin at 4 weeks. 3) Immobilization- Continue sling at all times. May remove for hygiene, elbow, wrist, and finger motion . Ok to remove at 6 weeks. 4) Weight-bearing- NWB 5) Follow-up- Patient to follow up in 4 weeks. Helio Cortez MD 05/05/2025 11:19 AM [facility] 05-05-2025 History of Presen t illness Narrative Reason for Visit/Chief Complaint: Routine Post-Op Visit Date of Surgery: 04/20/25 Surgery Performed: Right shoulder arthroscopic rotator cuff repair, debridement biceps tendon rupture and superior labrum History of Present Illness: Patient is status post above-stated procedure. Overall doing well. Denies any sensorimotor changes or wound issues. Pain controlled. Patient is compliant with sling. Has not begun physical therapy per instruction. No other complaints at this time Physical Exam Right Shoulder No gross swelling or epitrochlear lymphadenopathy appreciated Sensation grossly intact to all dermatomal distributions Radial pulse palpable Incisions healing well with no redness, drainage or signs of infection. Steri-strips in place Range of motion deferred at this time. Fires deltoid No neurological deficits appreciated Imaging: None Assessment: S/p above stated procedure, doing well Plan: 1) Pain control- Continue pain medications as prescribed. Risks of medications discussed 2) PT- None at this time per our instruction. Ok to begin at 4 weeks. 3) Immobilization- Continue sling at all times. May remove for hygiene, elbow, wrist, and finger motion . Ok to remove at 6 weeks. 4) Weight-bearing- NWB 5) Follow-up- Patient to follow up in 4 weeks. Helio Cortez MD 05/05/2025 11:19 AM documented in this encounter [facility] 04-20-2025 Note HNO ID: [id number] Author: SINGH FINCH APRN.VEGETABLE SCULLION Service: Anesthesiology Author Type: Nurse Pinion Sorter Type: Anesthesia Procedure Notes Filed: 04/20/2025 10:40 Note Text: ANESTHESIOLOGY PROCEDURE NOTE Airway General Information Procedure Start Time/Medication Administration: 04/20/2025 10:24 AM Procedure End Time: 04/20/2025 10:24 AM Patient location during procedure: OR Timeout Performed Pre-procedure: timeout performed Consent Obtained: Yes Patient identity confirmed: arm band Staffing VEGETABLE SCULLION: Singh Finch APRN.VEGETABLE SCULLION Performed by: JESU Indications and Patient Condition Indications for airway management: anesthesia Preoxygenated: yes anesthesia circuit Method: asleep Cricoid Pressure: No Manual In-Line Stabilization: No Difficult Mask: No Final Airway Details Final airway type: endotracheal airway Final Endotracheal Airway: ETT Cuffed: yes Successful intubation technique: video laryngoscopy Devices used: Martin and intubating stylet Endotracheal tube insertion site: oral Blade: Javier Blade size: #4 ETT size (mm): 8.0 Measurement (cm): 24 Placement verified by: capnometry Cormack-Lehane Classification: grade I - full view of glottis Number of attempts at approach: 1 Failed airway: no Unrecognized esophageal intubation: no Airway not difficult SIGNATURE: Singh Finch APRN.VEGETABLE SCULLION PATIENT NAME: Shimon Amato DATE: April 20, 2025 TIME: 10:39 AM CSN: [id number] [facility] 04-20-2025 Note HNO ID: [id number] Author: PRIETO DURANT MD Service: Anesthesiology Author Type: Anesthesiologist Type: Anesthesia Procedure Notes Filed: 04/20/2025 09:06 Note Text: ANESTHESIOLOGY PROCEDURE NOTE Peripheral Nerve Block General Information Procedure Start Time/Medication Administration: 04/20/2025 8:49 AM Procedure End time: 04/20/2025 8:55 AM Patient location during procedure: pre-op Patient identity confirmed: arm band and patient Reason for block: post-op pain management/at surgeon's request Staffing Anesthesiologist: Prieto Durant MD Performed by: anesthesiologist Preparation Sterility Preparation: hand hygiene performed prior to procedure, surgical cap used, mask used, skin prep agent completely dried prior to procedure Site Prep: Chloraprep Pre-Procedure Neuro Exam Location: RUE Sensory: intact Motor: intact Procedure Details Patient Position: supine Monitoring: Pulse OX, EKG and NIBP Block Type Upper Extremity: brachial plexus Approach: interscalene Laterality: right Injection Technique: single-shot Ultrasound Guided: Yes Image in Chart: No Local Infiltration: Yes Needle Needle Type: echogenic Needle Gauge: 21 G Needle Length: 5 cm Needle Localization: ultrasound Assessment Injection assessment: negative aspiration, local visualized surrounding nerve on ultrasound and no paresthesia on injection Paresthesia: none Medications Administered ropivacaine (PF) 5 mg/mL (0.5 %) injection (NAROPIN) - peripheral nerve block 20 mL - 04/20/2025 8:49:00 AM dexamethasone sodium phosphate injection (DECADRON) - peripheral nerve block 4 mg - 04/20/2025 8:49:00 AM midazolam (PF) injection (VERSED) - INTRAVENOUS 2 mg - 04/20/2025 8:49:00 AM Comments Risks, benefits, and alternatives to block discussed prior to start of block procedure. Patient agreed to proceed. Patient is communicating. Procedure is well tolerated. Extended block is expected up to 24 hours post-block. Patient can be discharged to floor/home with the block intact. ASA monitors were used. Vital signs were stable throughout. SIGNATURE: Prieto Durant MD PATIENT NAME: Shimon Amato DATE: April 20, 2025 TIME: 9:03 AM CSN: [id number] [facility] 04-16-2025 Telephone encounter Note Just spoke to patient and advised him to arrive to our outpatient surgery center on SundayApril 20 by 7:30 am. He has address and [address]. I reminded him not to eat or drink after midnight Sunday night or for 8 hours prior to surgery. [facility] 04-16-2025 Miscellaneous Notes Just spoke to patient and advised him to arrive to our outpatient surgery center on SundayApril 20 by 7:30 am. He has address and suite number. I reminded him not to eat or drink after midnight Sunday night or for 8 hours prior to surgery. documented in this encounter [facility] 04-13-2025 History of Presen t illness Narrative Images from the original note were not included. SPINE SURGERY ESTABLISHED PATIENT DATE OF SERVICE: 04/13/2025 Patient Name: Mr.Brian Marco Antonio Amato Date of : 1950 Current Age: [age] year old Sex: male Subjective Chief Complaint: History of Present Illness: Mr.Brian Marco Antonio Amato has a past medical history of hypertension, overactive bladder and sleep apnea. Patient was seen by Dr. Cortez on 03/24/2025 for a 6 year history of atraumatic right shoulder pain that had worsened. MRI demonstrated full-thickness tear of the supraspinatus tendon with some retraction. He complained of right sided neck pain that radiated to trapezius region as well as pain and weakness to right shoulder. He wished to proceed with right shoulder arthroscopic rotator cuff repair with possible biceps tenodesis scheduled for 04/20/2025. He was recommended to follow-up with myself for evaluation of his cervical spine prior to undergoing surgery. He was last seen in the office on 03/27/2025 and reported right sided neck pain that radiated to back of right shoulder for 3 years. He noted occasional paresthesia in the right middle and ring fingers. He had a history of multiple surgeries, including procedures on both wrists, with plates inserted in the right wrist, leading to decreased dexterity and worsening handwriting. He had transient balance issues that had resolved. Denied any falls. His symptoms were exacerbated with overhead activities. X-rays showed arthritic changes and slight vertebral misalignment, but no significant instability. I recommended patient to follow-up after obtaining MRI of cervical spine prior to undergoing his shoulder surgery, prompting visit today. Marco Antonio is a 74-year-old male presenting for evaluation of cervical spine MRI findings and clearance for upcoming shoulder surgery. Marco Antonio reports chronic shoulder pain, which is manageable but exacerbates with certain movements, necessitating occasional manual assistance for arm elevation. He is scheduled for shoulder surgery next week to address this issue. He also experiences neck pain but denies any significant difficulty with reaching or performing activities of daily living. Recent cervical spine MRI revealed spinal cord and nerve root narrowing. Marco Antonio denies experiencing pain, numbness, or tingling radiating to his hands. He has a history of carpal tunnel syndrome, which previously caused numbness while riding a bike, but he notes improvement in these symptoms and denies current tingling. He reports occasional dropping of objects, though he does not consider this a significant issue. He denies any balance issues, though he does report a recent episode of dizziness and balance problems approximately 1-2 months ago. He attributes occasional feelings of imbalance to his age. Major Risk Factors Obesity Moderate Risk BMI: 30.44 kg/m2 High: BMI > 40 Moderate: BMI 30-40 Normal: BMI < 30 Diabetes normal High: A1C > 8 Moderate: A1C 7-8 Normal: A1C < 7 Hx of DVT / PE normal High: dx of DVT / PE Normal: no dx of DVT / PE Smoking normal Last Status: Never High: Current smoker Normal: Non smoker Narcotics Use normal High:NarxCare >=300 Moderate: 100-299 Normal: 0-99 Depression Unknown Risk High: PHQ-9 >14 Moderate: PHQ-9 5-14 Normal: PHQ-9 < 5 Data from [facility] Epic on prior therapies: PREVIOUS CONSERVATIVE TREATMENT: 1) Medication: Tylenol, Advil 2) Physical therapy: No recent participation for neck. Did PT in November for shoulder. 3) Pain Management: No recent participation 4) Injections: No recent injections PREVIOUS SPINE SURGERY: Denies Surgical Risk Factors: Anticoagulants/antiplatelets: ASA 81mg Objective PHYSICAL EXAM There were no vitals taken for this visit. 5/5 motor strength in BUE and BLE SILT throughout extremities No UMN signs Able to perform tandem gait Results: MRI of cervical spine WO contrast from 03/31/2025: IMPRESSION: Multilevel degenerative changes of cervical spine, most pronounced at C5-C6 with moderate spinal canal stenosis and indentation of the ventral cord and moderate bilateral neural foraminal narrowing. Anatomic Variant: None. Assume 7 cervical vertebrae with counting from the craniocervical junction. Assessment/Plan 1. Cervical spondylosis with myelopathy (M47.12) Cervical spine MRI reveals multiple levels of spinal cord compression and narrowing due to arthritis. Patient experiences occasional balance issues and mild dexterity problems, but no significant pain, numbness, or tingling in the hands. No severe narrowing around the spinal cord observed. - Patient has moderate stenosis with mild ventral cord compression without cord signal change; anesthesiologist to exercise caution during intubation and positioning to avoid exacerbating cervical stenosis. Recommend neutral positioning of cervical spine for surgical procedures. - Patient educated on the progressive nature of the condition and the possibility of surgery if symptoms worsen. - Scheduled follow-up in 6 months to monitor symptoms; advised to report any worsening hand numbness, dexterity issues, or balance problems sooner. The following portions of the patient's history were reviewed, confirmed, and updated as necessary: allergies, current medications, past family history, past medical history, past social history, past surgical history, problem list, HPI, and ROS obtained by others.The following information can be found in electronic health record. Some elements may be copied from a previous office note and have been reviewed/updated where appropriate. All portions reflect current medical decision making from today. The clinical and radiographic findings as well as the risks, benefits and alternatives of treatment have been reviewed in detail with the patient. Advised to call the office if symptoms worsen or new symptoms develop.Patient expressed understanding and is in agreement with plan. Suresh Soto MD Department of Orthopaedics [facility] Recording using instruMagic software for draft documentation of the visit was discussed with the patient/authorized leasing representative; all questions welcomed and answered. Patient/authorized leasing representative agreed to proceed documented in this encounter [facility] 04-13-2025 Note HNO ID: [id number] Author: SURESH SOTO MD Service: ? Author Type: Physician Type: Progress Notes Filed: 04/13/2025 14:05 Note Text: SPINE SURGERY ESTABLISHED PATIENT DATE OF SERVICE: 04/13/2025 Patient Name: Mr.Brian Marco Antonio Amato Date of : 1950 Current Age: [age] year old Sex: male Subjective Chief Complaint: History of Present Illness: Mr.Brian Marco Antonio Amato has a past medical history of hypertension, overactive bladder and sleep apnea. Patient was seen by Dr. Cortez on 03/24/2025 for a 6 year history of atraumatic right shoulder pain that had worsened. MRI demonstrated full-thickness tear of the supraspinatus tendon with some retraction. He complained of right sided neck pain that radiated to trapezius region as well as pain and weakness to right shoulder. He wished to proceed with right shoulder arthroscopic rotator cuff repair with possible biceps tenodesis scheduled for 04/20/2025. He was recommended to follow-up with myself for evaluation of his cervical spine prior to undergoing surgery. He was last seen in the office on 03/27/2025 and reported right sided neck pain that radiated to back of right shoulder for 3 years. He noted occasional paresthesia in the right middle and ring fingers. He had a history of multiple surgeries, including procedures on both wrists, with plates inserted in the right wrist, leading to decreased dexterity and worsening handwriting. He had transient balance issues that had resolved. Denied any falls. His symptoms were exacerbated with overhead activities. X-rays showed arthritic changes and slight vertebral misalignment, but no significant instability. I recommended patient to follow-up after obtaining MRI of cervical spine prior to undergoing his shoulder surgery, prompting visit today. Marco Antonio is a 74-year-old male presenting for evaluation of cervical spine MRI findings and clearance for upcoming shoulder surgery. Marco Antonio reports chronic shoulder pain, which is manageable but exacerbates with certain movements, necessitating occasional manual assistance for arm elevation. He is scheduled for shoulder surgery next week to address this issue. He also experiences neck pain but denies any significant difficulty with reaching or performing activities of daily living. Recent cervical spine MRI revealed spinal cord and nerve root narrowing. Marco Antonio denies experiencing pain, numbness, or tingling radiating to his hands. He has a history of carpal tunnel syndrome, which previously caused numbness while riding a bike, but he notes improvement in these symptoms and denies current tingling. He reports occasional dropping of objects, though he does not consider this a significant issue. He denies any balance issues, though he does report a recent episode of dizziness and balance problems approximately 1-2 months ago. He attributes occasional feelings of imbalance to his age. Major Risk Factors Obesity Moderate Risk BMI: 30.44 kg/m2 High: BMI > 40 Moderate: BMI 30-40 Normal: BMI < 30 Diabetes normal High: A1C > 8 Moderate: A1C 7-8 Normal: A1C < 7 Hx of DVT / PE normal High: dx of DVT / PE Normal: no dx of DVT / PE Smoking normal Last Status: Never High: Current smoker Normal: Non smoker Narcotics Use normal High:NarxCare >=300 Moderate: 100-299 Normal: 0-99 Depression Unknown Risk High: PHQ-9 >14 Moderate: PHQ-9 5-14 Normal: PHQ-9 < 5 Data from [facility] Epic on prior therapies: PREVIOUS CONSERVATIVE TREATMENT: 1) Medication: Tylenol, Advil 2) Physical therapy: No recent participation for neck. Did PT in November for shoulder. 3) Pain Management: No recent participation 4) Injections: No recent injections PREVIOUS SPINE SURGERY: Denies Surgical Risk Factors: Anticoagulants/antiplatelets: ASA 81mg Objective PHYSICAL EXAM There were no vitals taken for this visit. 5/5 motor strength in BUE and BLE SILT throughout extremities No UMN signs Able to perform tandem gait Results: MRI of cervical spine WO contrast from 03/31/2025: IMPRESSION: Multilevel degenerative changes of cervical spine, most pronounced at C5-C6 with moderate spinal canal stenosis and indentation of the ventral cord and moderate bilateral neural foraminal narrowing. Anatomic Variant: None. Assume 7 cervical vertebrae with counting from the craniocervical junction. Assessment/Plan 1. Cervical spondylosis with myelopathy (M47.12) Cervical spine MRI reveals multiple levels of spinal cord compression and narrowing due to arthritis. Patient experiences occasional balance issues and mild dexterity problems, but no significant pain, numbness, or tingling in the hands. No severe narrowing around the spinal cord observed. - Patient has moderate stenosis with mild ventral cord compression without cord signal change; anesthesiologist to exercise caution during intubation and positioning to avoid exacerbating cervical stenosis. Recommend neutral positioning (more content not included)... [facility] 04-13-2025 Note HNO ID: [id number] Author: KAYY HANSON APRN.C++ QUANT DEVELOPER Service: Anesthesiology Author Type: Nurse Practitioner Type: Progress Notes Filed: 04/13/2025 11:54 Note Text: PAT HANDP reviewed. No ASC or anesthesia concerns at this time. No pending optimizations. Will proceed with procedure as planned at [facility]. [facility] 04-13-2025 History and physical note Images from the original note were not included. [facility] HISTORY AND PHYSICAL EXAMINATION SERVICE DATE: 04/13/2025 SERVICE TIME: 11:44 AM PRIMARY CARE PHYSICIAN: Giovanni Mclean DO Assessment Patient has the following medical conditions which may affect gregoria-operative course: Preop examination See note for medical conditions which may affect gregoria-operative course addressed in visit today. Traumatic complete tear of right rotator cuff See HPI, surgery scheduled 04/20/25 Rupture of right proximal biceps tendon See HPI, surgery scheduled 04/20/25 MYLENE (obstructive sleep apnea) S/p uvulectomy, no CPAP H/O echocardiogram Previous finding of EF = 49 5%, aorta dilation 4.0cm Patient denies any chest pain, SOB, METs >8 No previous h/o cardiac disease, taking ASA 81mg for prevention ECHO 08/08/21 CONCLUSIONS: - Exam indication: SOB - The left ventricle is normal in size. Left ventricular systolic function is mildly decreased. EF = 49 5% (2D biplane) Normal left ventricular diastolic function. - The right ventricle is normal in size. Right ventricular systolic function is normal. - The right atrial cavity is dilated. - The visualized aorta is borderline dilated with a maximal dimension of 4.0 cm. - The patient has not had a prior CC echocardiographic exam for comparison. Hypertension, essential BP elevated today, patient denies chest pain, SOB, ESCALANTE, dizziness, syncope. Patient states BP has been somewhat elevated, no current medication. Monitoring with PCP ANESTHESIA FINDINGS: Intubation History: No history of difficult intubation. No abnormal airway history Significant Anesthesia Considerations: none Airway History: No history of difficult airway No abnormal airway history [place] Activity Status Index: METS: Do heavy work around the house, such as scrubbing floors, lifting or moving heavy furniture (8.00 METs) DASI Score: 8 Patient denies any chest pain or undue shortness of breath with the above physical activity. Clinical Frailty Scale: 2. Well ARISCAT Score: Age: 51-80 Preoperative SpO2: >=96% Respiratory infection in the last month: No Preoperative anemia: No Surgical incision: peripheral Duration of surgery: <2 hrs Emergency procedure: No ARISCAT Score: 3 I - PHYSICAL EVALUATION AIRWAY Patient intubated: No. DENTAL Dental findings: teeth intact. II - ANESTHESIA PLAN Anesthetic Plan: regional and general Beta Ann Monitoring Plan Post Procedure Analgesic Plan Prepared for Surgery: . Patient has no pending optimization. CONSULTS: Planned Anesthetic: regional and general The Following Tests/Procedures Have Been Initiated: No orders of the defined types were placed in this encounter. None ordered per surgeon. Pt denies blood thinners. ARISCAT risk index interpretation 0 to 25 points: Low risk: 1.6% pulmonary complication rate 26 to 44 points: Intermediate risk: 13.3% pulmonary complication rate 45 to 123 points: High risk: 42.1% pulmonary complication rate Assessment/Plan Traumatic complete tear of right rotator cuff, subsequent encounter [S47.011D] Rupture of right proximal biceps tendon, initial encounter [S46.211A] PLAN Diagnosis: Planned Procedure: Procedure(s) with comments: ARTHROSCOPY SHOULDER ROTATOR CUFF (rotator cuff repair right shoulder)--Right shoulder arthroscopic rotator cuff repair, possible biceps tenodesis (Right) - GENERAL + BLOCK ARTHROSCOPY SHOULDER BICEPS TENODESIS (possible biceps tenodesis) (Right) I spent a total of 40 minutes on the date of the service which included preparing to see the patient, [id number] patient care, completing clinical documentation, obtaining and/or reviewing separately obtained history, performing a medically appropriate examination, and counseling and educating the patient/family/caregiver. REASON FOR VISIT: Shimon Amato is a 74 year old male who is scheduled for Procedure(s) with comments: ARTHROSCOPY SHOULDER ROTATOR CUFF (rotator cuff repair right shoulder)--Right shoulder arthroscopic rotator cuff repair, possible biceps tenodesis (Right) - GENERAL + BLOCK ARTHROSCOPY SHOULDER BICEPS TENODESIS (possible biceps tenodesis) (Right) at the request of Dr. Helio Cortez for routine H&P. My final recommendation will be communicated back to the requesting physician by way of shared medical record or letter. Subjective The patient has the following: COVID-19 Immunization Status Current Care Gaps Covid-19 Vaccine (2023- season) Overdue since 01/28/2025 07/31/2024 Imm Admin: COVID-19 vaccine, age 12+ yr (MODERNA) 08/24/2023 Imm Admin: COVID-19 vaccine, age 12+ yr, season ([employer]) 06/22/2022 Imm Admin: COVID-19 original vaccine, full dose, monovalent (MODERNA) Only the first 3 history entries have been loaded, but more history exists. CHIEF COMPLAINT: The reason for this visit is to perform a comprehensive review of the patient's past medical history, assess their current health status and obtain any additional testing required based on anesthesia guidelines. We will also identify any potential anesthesia problems or contraindications to the planned procedure. HPI: Shimon Amato is a 74 year old male who presents to [facility] for the above procedure. Patient c/o right shoulder pain for about 3 years, has had steriod injections 2-3 times. 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 He reports constant pain about 3.5/10 today. He denies any numbness or tingling. After discussing with surgeon, patient agrees to surgical intervention. Risk and benefits discussed by surgeon. Patient denies any other problems or concerns at this time. REVIEW OF SYSTEMS: General: Negative for: fever. Neurological: Negative for: delirium, dementia, seizures, TIA and strokes. Respiratory: Negative for: asthma, COPD, pneumonia within 6 weeks, URI < 2 weeks and obstructive sleep apnea. Cardiovascular: Positive for: CHF Negative for: atrial fibrillation, CAD, chest pain, DVT/PE and recent MT. GI: Negative for: abdominal pain, dysphagia, hepatitis, nausea, vomiting and ETOH >2 drinks/day. : Negative for: dysuria, hematuria, urinary incontinence and renal failure. Endocrine: No history of diabetes. Has not taken steroids within the past 30 days. No history of endocrinological symptoms or problems. Hematology: Positive for: chronic anti-coagulation/platelet meds. Patient is on anti-coagulation/platelet medication(s): Aspirin. Negative for: anemia, factor V Leiden, hemophilia and von Willebrand disease. Oncology: No history of CA metastasis, chemo within 30 days, or radiotherapy within 90 days. No history of oncological symptoms or problems. Psych: No history of psychiatric symptoms or problems. Musculoskeletal: See HPI. Skin: Negative for lesions, rash and itching. Implanted Devices: Has implanted device Implants: metal in right wrist, bilateral CATRACHITA, left knee. PAST MEDICAL HISTORY Diagnosis Date Benign non-nodular prostatic hyperplasia with lower urinary tract symptoms 09/15/2015 Hypertension OAB (overactive bladder) Sleep apnea pt denies/pt states sleep study about 20 yrs ago/ states they told him no sleep apnea PAST SURGICAL HISTORY Procedure Laterality Date APPENDECTOMY 1976 APPENDECTOMY HX ARTHROSCOPY KNEE DIAGNOSTIC W/WO SYNOVIAL BX SPX Left Arthroscopy, knee COLONOSCOPY 12/19/2021 repeat in 10 years JOINT REPLACEMENT HX NEUROPLASTY &/TRANSPOS MEDIAN NRV CARPAL TUNNE Right Carpal tunnel decomp PAST SURGICAL HISTORY OF neuroma right hand PAST SURGICAL HISTORY OF Left 10/15/2014 Arthroplasty left -[facility] PAST SURGICAL HISTORY OF Right 2000 wrist fusion PAST SURGICAL HISTORY OF uvulectomy PAST SURGICAL HISTORY OF Bilateral 08/2018 and 10/2014 CATRACHITA TONSILLECTOMY HX FAMILY HISTORY Problem Relation Age of Onset Stroke Mother other (Other) Father hip fracture/blood clot, was on AC prior to that for ? heart Arthritis Sister No Known Problems Brother Cancer Brother Social History Tobacco Use Smoking status: Never Smokeless tobacco: Never Vaping Use Vaping status: Never Used Substance Use Topics Alcohol use: Yes Alcohol/week: 2.0 standard drinks of alcohol Types: 2 Glasses of Wine (5oz) per week Comment: few times a month Drug use: No Prior to Admission medications as of 04/13/25 1115 Medication Sig Last Dose Taking acetaminophen (TYLENOL EXTRA STRENGTH) 500 mg tablet Take 2 tablets by mouth every 8 hours as needed for pain. Yes aspirin, enteric coated (ASPIRIN, ENTERIC COATED) 81 mg EC tablet Take 81 mg by mouth once daily. Yes calcium carbonate/vitamin D3 (CALCIUM 500 + D ORAL) Take by mouth. Yes multivitamin tablet Take 1 tablet by mouth once daily. Yes No medication comments found. ALLERGIES Allergen Reactions Latex Rash Objective PHYSICAL EXAM: General: alert and oriented and healthy appearance. Pertinent negatives noted - not distressed. Skin: normal color, no rash or lesions. HEENT: EOM intact and pupils equal round. No additional findings for patient's neck. Cardiovascular: regular rate and rhythm, normal S1 and S2, no rub, murmurs, or gallop. Respiratory: normal breath sounds, no wheezes or crackles. No chest wall deformity or tenderness. Abdomen: bowel sounds present and soft. Pertinent negatives noted - not tender. Extremities: no deformity, no edema or tenderness, no joint swelling or clubbing. Neurological: normal cognition and motor skills. Gait normal. No weakness or sensory deficit. PAIN ASSESSMENT: Pain Pain Level: 4 Pain Location: Shoulder-Right Frequency: Continuous VITALS: BP 159/89 Pulse 75 Temp 97.3 Resp 16 Ht 5' 11 (1.80m) Wt 213 lb (96.6kg) SpO2 96% BMI 29.72 kg/(m^2). Diagnostic tests reviewed for today's visit: Lab Value Units Date High Low HB No results within date range. HCT No results within date range. WBC No results within date range. PLT No results within date range. NA No results within date range. K No results within date range. GLUC No results within date range. BUN No results within date range. CREAT No results within date range. PTSEC No results within date range. INR No results within date range. APTT No results within date range. ALT No results within date range. AST No results within date range. TBILI No results within date range. TSH No results within date range. Lab Value Units Date High Low HCGQT No results within date range. UHCG No results within date range. HCG, BODY* No results within date range. Lab Value Units Date High Low ABORHD No results within date range. ABSCREEN No results within date range. No results found for: HBA1C No results found for this or any previous visit (from the past 8760 hours). No results found for this or any previous visit (from the past 92224 hours). Instructions Given to Patient: Instructions located in the after visit summary. Patient given verbal and written preop instructions and voices comprehension and compliance. SIGNATURE: Hakeem Agudelo APRN.CNP PATIENT NAME: Shimon Amato DATE: April 13, 2025 TIME: 3:28 PM PAGER/CONTACT #: [facility] 04-13-2025 History and physical note Images from the original note were not included. [facility] HISTORY AND PHYSICAL EXAMINATION SERVICE DATE: 04/13/2025 SERVICE TIME: 11:44 AM PRIMARY CARE PHYSICIAN: Giovanni Mclean, DO Assessment Patient has the following medical conditions which may affect gregoria-operative course: Preop examination See note for medical conditions which may affect gregoria-operative course addressed in visit today. Traumatic complete tear of right rotator cuff See HPI, surgery scheduled 04/20/25 Rupture of right proximal biceps tendon See HPI, surgery scheduled 04/20/25 MYLENE (obstructive sleep apnea) S/p uvulectomy, no CPAP H/O echocardiogram Previous finding of EF = 49 5%, aorta dilation 4.0cm Patient denies any chest pain, SOB, METs >8 No previous h/o cardiac disease, taking ASA 81mg for prevention ECHO 08/08/21 CONCLUSIONS: - Exam indication: SOB - The left ventricle is normal in size. Left ventricular systolic function is mildly decreased. EF = 49 5% (2D biplane) Normal left ventricular diastolic function. - The right ventricle is normal in size. Right ventricular systolic function is normal. - The right atrial cavity is dilated. - The visualized aorta is borderline dilated with a maximal dimension of 4.0 cm. - The patient has not had a prior CC echocardiographic exam for comparison. Hypertension, essential BP elevated today, patient denies chest pain, SOB, ESCALANTE, dizziness, syncope. Patient states BP has been somewhat elevated, no current medication. Monitoring with PCP ANESTHESIA FINDINGS: Intubation History: No history of difficult intubation. No abnormal airway history Significant Anesthesia Considerations: none Airway History: No history of difficult airway No abnormal airway history Gal[place]iz Activity Status Index: METS: Do heavy work around the house, such as scrubbing floors, lifting or moving heavy furniture (8.00 METs) DASI Score: 8 Patient denies any chest pain or undue shortness of breath with the above physical activity. Clinical Frailty Scale: 2. Well ARISCAT Score: Age: 51-80 Preoperative SpO2: >=96% Respiratory infection in the last month: No Preoperative anemia: No Surgical incision: peripheral Duration of surgery: <2 hrs Emergency procedure: No ARISCAT Score: 3 I - PHYSICAL EVALUATION AIRWAY Patient intubated: No. DENTAL Dental findings: teeth intact. II - ANESTHESIA PLAN Anesthetic Plan: regional and general Beta Ann Monitoring Plan Post Procedure Analgesic Plan Prepared for Surgery: . Patient has no pending optimization. CONSULTS: Planned Anesthetic: regional and general The Following Tests/Procedures Have Been Initiated: No orders of the defined types were placed in this encounter. None ordered per surgeon. Pt denies blood thinners. ARISCAT risk index interpretation 0 to 25 points: Low risk: 1.6% pulmonary complication rate 26 to 44 points: Intermediate risk: 13.3% pulmonary complication rate 45 to 123 points: High risk: 42.1% pulmonary complication rate Assessment/Plan Traumatic complete tear of right rotator cuff, subsequent encounter [S46.011D] Rupture of right proximal biceps tendon, initial encounter [S46.211A] PLAN Diagnosis: Planned Procedure: Procedure(s) with comments: ARTHROSCOPY SHOULDER ROTATOR CUFF (rotator cuff repair right shoulder)--Right shoulder arthroscopic rotator cuff repair, possible biceps tenodesis (Right) - GENERAL + BLOCK ARTHROSCOPY SHOULDER BICEPS TENODESIS (possible biceps tenodesis) (Right) I spent a total of 40 minutes on the date of the service which included preparing to see the patient, [id number] patient care, completing clinical documentation, obtaining and/or reviewing separately obtained history, performing a medically appropriate examination, and counseling and educating the patient/family/caregiver. REASON FOR VISIT: Shimon Amato is a 74 year old male who is scheduled for Procedure(s) with comments: ARTHROSCOPY SHOULDER ROTATOR CUFF (rotator cuff repair right shoulder)--Right shoulder arthroscopic rotator cuff repair, possible biceps tenodesis (Right) - GENERAL + BLOCK ARTHROSCOPY SHOULDER BICEPS TENODESIS (possible biceps tenodesis) (Right) at the request of Dr. Helio Cortez for routine H&P. My final recommendation will be communicated back to the requesting physician by way of shared medical record or letter. Subjective The patient has the following: COVID-19 Immunization Status Current Care Gaps Covid-19 Vaccine (2023- season) Overdue since 01/28/2025 07/31/2024 Imm Admin: COVID-19 vaccine, age 12+ yr (MODERNA) 08/24/2023 Imm Admin: COVID-19 vaccine, age 12+ yr, 2022- season ([employer]) 06/22/2022 Imm Admin: COVID-19 original vaccine, full dose, monovalent (MODERNA) Only the first 3 history entries have been loaded, but more history exists. CHIEF COMPLAINT: The reason for this visit is to perform a comprehensive review of the patient's past medical history, assess their current health status and obtain any additional testing required based on anesthesia guidelines. We will also identify any potential anesthesia problems or contraindications to the planned procedure. HPI: Shimon Amato is a 74 year old male who presents to [facility] for the above procedure. Patient c/o right shoulder pain for about 3 years, has had steriod injections 2-3 times. 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 He reports constant pain about 3.5/10 today. He denies any numbness or tingling. After discussing with surgeon, patient agrees to surgical intervention. Risk and benefits discussed by surgeon. Patient denies any other problems or concerns at this time. REVIEW OF SYSTEMS: General: Negative for: fever. Neurological: Negative for: delirium, dementia, seizures, TIA and strokes. Respiratory: Negative for: asthma, COPD, pneumonia within 6 weeks, URI < 2 weeks and obstructive sleep apnea. Cardiovascular: Positive for: CHF Negative for: atrial fibrillation, CAD, chest pain, DVT/PE and recent MT. GI: Negative for: abdominal pain, dysphagia, hepatitis, nausea, vomiting and ETOH >2 drinks/day. : Negative for: dysuria, hematuria, urinary incontinence and renal failure. Endocrine: No history of diabetes. Has not taken steroids within the past 30 days. No history of endocrinological symptoms or problems. Hematology: Positive for: chronic anti-coagulation/platelet meds. Patient is on anti-coagulation/platelet medication(s): Aspirin. Negative for: anemia, factor V Leiden, hemophilia and von Willebrand disease. Oncology: No history of CA metastasis, chemo within 30 days, or radiotherapy within 90 days. No history of oncological symptoms or problems. Psych: No history of psychiatric symptoms or problems. Musculoskeletal: See HPI. Skin: Negative for lesions, rash and itching. Implanted Devices: Has implanted device Implants: metal in right wrist, bilateral CATRACHITA, left knee. PAST MEDICAL HISTORY Diagnosis Date Benign non-nodular prostatic hyperplasia with lower urinary tract symptoms 09/15/2015 Hypertension OAB (overactive bladder) Sleep apnea pt denies/pt states sleep study about 20 yrs ago/ states they told him no sleep apnea PAST SURGICAL HISTORY Procedure Laterality Date APPENDECTOMY 1976 APPENDECTOMY HX ARTHROSCOPY KNEE DIAGNOSTIC W/WO SYNOVIAL BX SPX Left Arthroscopy, knee COLONOSCOPY 12/19/2021 repeat in 10 years JOINT REPLACEMENT HX NEUROPLASTY &/TRANSPOS MEDIAN NRV CARPAL TUNNE Right Carpal tunnel decomp PAST SURGICAL HISTORY OF neuroma right hand PAST SURGICAL HISTORY OF Left 10/15/2014 Arthroplasty left -[place] PAST SURGICAL HISTORY OF Right 2000 wrist fusion PAST SURGICAL HISTORY OF uvulectomy PAST SURGICAL HISTORY OF Bilateral 08/2018 and 10/2014 CATRACHITA TONSILLECTOMY HX FAMILY HISTORY Problem Relation Age of Onset Stroke Mother other (Other) Father hip fracture/blood clot, was on AC prior to that for ? heart Arthritis Sister No Known Problems Brother Cancer Brother Social History Tobacco Use Smoking status: Never Smokeless tobacco: Never Vaping Use Vaping status: Never Used Substance Use Topics Alcohol use: Yes Alcohol/week: 2.0 standard drinks of alcohol Types: 2 Glasses of Wine (5oz) per week Comment: few times a month Drug use: No Prior to Admission medications as of 04/13/25 1115 Medication Sig Last Dose Taking acetaminophen (TYLENOL EXTRA STRENGTH) 500 mg tablet Take 2 tablets by mouth every 8 hours as needed for pain. Yes aspirin, enteric coated (ASPIRIN, ENTERIC COATED) 81 mg EC tablet Take 81 mg by mouth once daily. Yes calcium carbonate/vitamin D3 (CALCIUM 500 + D ORAL) Take by mouth. Yes multivitamin tablet Take 1 tablet by mouth once daily. Yes No medication comments found. ALLERGIES Allergen Reactions Latex Rash Objective PHYSICAL EXAM: General: alert and oriented and healthy appearance. Pertinent negatives noted - not distressed. Skin: normal color, no rash or lesions. HEENT: EOM intact and pupils equal round. No additional findings for patient's neck. Cardiovascular: regular rate and rhythm, normal S1 and S2, no rub, murmurs, or gallop. Respiratory: normal breath sounds, no wheezes or crackles. No chest wall deformity or tenderness. Abdomen: bowel sounds present and soft. Pertinent negatives noted - not tender. Extremities: no deformity, no edema or tenderness, no joint swelling or clubbing. Neurological: normal cognition and motor skills. Gait normal. No weakness or sensory deficit. PAIN ASSESSMENT: Pain Pain Level: 4 Pain Location: Shoulder-Right Frequency: Continuous VITALS: BP 159/89 Pulse 75 Temp 97.3 Resp 16 Ht 5' 11 (1.80m) Wt 213 lb (96.6kg) SpO2 96% BMI 29.72 kg/(m^2). Diagnostic tests reviewed for today's visit: Lab Value Units Date High Low HB No results within date range. HCT No results within date range. WBC No results within date range. PLT No results within date range. NA No results within date range. K No results within date range. GLUC No results within date range. BUN No results within date range. CREAT No results within date range. PTSEC No results within date range. INR No results within date range. APTT No results within date range. ALT No results within date range. AST No results within date range. TBILI No results within date range. TSH No results within date range. Lab Value Units Date High Low HCGQT No results within date range. UHCG No results within date range. HCG, BODY* No results within date range. Lab Value Units Date High Low ABORHD No results within date range. ABSCREEN No results within date range. No results found for: HBA1C No results found for this or any previous visit (from the past 8760 hours). No results found for this or any previous visit (from the past 69445 hours). Instructions Given to Patient: Instructions located in the after visit summary. Patient given verbal and written preop instructions and voices comprehension and compliance. SIGNATURE: Hakeem Agudelo APRN.CNP PATIENT NAME: Shimon Amato DATE: April 13, 2025 TIME: 3:28 PM PAGER/CONTACT #: documented in this encounter [facility] 04-10-2025 Instructions Hakeem Agudelo APRN.CNP - 04/10/2025 3:27 PM EDT PATIENT PREOPERATIVE INSTRUCTIONS Your surgeon has scheduled for your procedure at this surgery center: [facility]: [phone], [address] [place] [address] Please read below carefully for your personalized instructions. Surgery Date: 04/20/25 Your surgeon's office will provide you with your ARRIVAL TIME for surgery. - If you have not received an arrival time by the afternoon before your surgery date, please follow up with your surgeon's office. - If you are scheduled for Sunday surgery, please make sure you have your arrival time by Sunday afternoon. - Please be aware that emergency situations arise, which may delay or change your surgical time. If this happens, your surgeon's office will notify you as soon as possible and regret any inconvenience. Dietary Restrictions: - Nothing to eat or drink after midnight except for a sip of water with approved medications. This is important because otherwise your surgery may have to be cancelled. Blood Thinning Medications: - Stop NSAIDS (Ibuprofen, Advil, Aleve, Motrin, Celebrex, Mobic, etc.) 7 days before surgery, or as directed by your surgeon. You may take Tylenol (Acetaminophen) or any of your pain medications that do not contain aspirin or NSAIDS as needed. IF YOU TAKE ANY OF THE FOLLOWING BLOOD THINNERS, PLEASE CONTACT YOUR SURGEON AND THE PHYSICIAN WHO PRESCRIBES IT FOR YOU IN ORDER TO GET PERIOPERATIVE INSTRUCTIONS SOON POSSIBLE. BLOOD THINNERS: Aspirin , Coumadin, Plavix, Eliquis, Pradaxa, Xarelto, Lovenox, Brilinta, Effient, Savaysa, Arixtra, etc - Stop Vitamin E, fish oil, multivitamins, Marijuana, CBD oil and other over the counter herbals and dietary supplements 7 days before surgery. - This would not apply to cancer patients who are prescribed Marinol or any other prescription form on marijuana or CBD. Medications: Approved medications to take the morning of surgery with a sip of water: BP, Heart, seizure, thyroid, psych and pain medications. Use inhalers as prescribed. Please bring inhalers. HOLD - CATHERINE inhibitors (Angiotensin-converting enzyme inhibitors) and ARBs (Angiotensin II receptor blockers) Day of surgery. Use inhalers as prescribed. Please bring inhalers. Refer to surgeon and prescribing provider regarding Vivitrol/Naltrexone management prior to surgery. Vivitrol: Must be discontinued 30 days prior to elective surgery. Naltrexone: If bridging from Vivitrol, it should be stopped 3 days prior to surgery if opioids are expected post-operatively. If you start any new medications after today's visit, please contact the surgeon's office. Important Reminders: - If you have a stimulator, implant or pump that requires a remote, please bring the remote with you day of surgery. - If you use CPAP/BIPAP, bring the machine with you to the surgery center. - If you are prescribed inhalers for breathing, continue using them AND bring them to the surgery center. - Candy, mints, gum and tobacco products are NOT permitted the morning of surgery. - Hearing aids, dentures and glasses may be worn the morning of surgery. - NO jewelry, body piercings, makeup, hairpins or contacts are to be worn the day of surgery. - Oral hygiene and a shower or bath is required the evening before or the morning of surgery. - NO lotion, creams, powders or deodorants on the skin the day of surgery. - Wear loose, comfortable clothing that will accommodate bandages. - Your length of stay will be determined by your surgeon. - You will need to have someone else (Family or friend) to drive you home once discharged from the hospital. You cannot drive yourself home after surgery. - YOU MUST HAVE A RESPONSIBLE AIRCRAFT MAGNETO MECHANIC TAKE YOU HOME. A EDGE GLUER, CAB OR UBER AIRCRAFT MAGNETO MECHANIC CANNOT BE MADE A RESPONSIBLE AIRCRAFT MAGNETO MECHANIC. - If you are undergoing an outpatient procedure you must have someone drive you home and stay with you for the first 24 hours. Your ride home must be at least 18 years old or older. Your surgery may be cancelled if you do not have someone to drive you home or take care of you. - You cannot stay in a hotel alone after an outpatient surgery. - It is recommended patients have a 72-hour period between getting their vaccine and the date of surgery. Visitation: Visitors to any [facility] facility: Any individual who is sick should not visit. Visitors to patients with COVID-19 must follow these guidelines, which include wearing a mask, eye protection, gown and gloves. [facility] [place] Visitation hours: 7 AM to 9 PM. Pre-Surgery Unit - Patients may have up to 2 visitors at a time. PACU recovery Unit - Patients may have up to 1-2 visitors at a time. [facility] [place] Pre-Surgery area - 1 visitor at a time due to limited space. PACU recovery area - No visitors due to limited space unless patient is a minor due to limited space. If you develop symptoms such as a fever, cold, or flu, or have other changes to your health within TWO DAYS of scheduled surgery or the morning of surgery, please contact the surgeon's office. Personal Belongings: - Leave ALL valuables and money at home or with family members. - You will need a form of ID and insurance card to check in the morning of surgery. - If you already have an Advance Directive, please fax a copy to [phone] or Bridget TELLEZ at [phone] or email to for it to be added to your chart. If you do not have an Advance Directive, you can find the appropriate form and more information at [email or web address]. We recommend that you complete the Advance Directive form found on the website and bring it with you the day of your surgery. It can be witnessed and scanned into your chart that day. Hakeem Agudelo APRN.CNP 04/10/25 documented in this encounter [facility] 03-31-2025 Note HNO ID: [id number] Author: [place] RT(R) Service: ? Author Type: Technologist Type: Progress Notes Filed: 03/31/2025 12:21 Note Text: Radiology Service Progress Note PATIENT NAME: Shimon Amato DATE OF SERVICE: March 31, 2025 TIME: 12:20 PM PATIENT IDENTITY VERIFICATION COMPLETED USING TWO (2) IDENTIFIERS: Name and Date of confirmed by patient verbally. FALL SCREENING: Has the patient had 2 falls in the last year or 1 fall with injury or currently using an Ambulatory Assistive Device (Walker, Cane, Wheelchair, Crutches, etc.)? No PATIENT GENDER DATA: Assigned male at PATIENT RELEVANT IMPLANT DATA REVIEWED: Yes PATIENT PRESENTS WITH AN IMPLANTABLE OR ATTACHED PARACHUTE MANUFACTURING SUPERVISOR: No RADIOLOGY DEPARTMENT: MR; Exam(s) Completed: Spine: Cervical spine. Lavender Administered: No PERIPHERAL IV DATA: Not applicable SIGNED BY: RT Alexa(R) March 31, 2025 12:20 PM [facility] 03-27-2025 History of Presen t illness Narrative Images from the original note were not included. SPINE SURGERY NEW PATIENT Date of visit: March 27, 2025 Patient Name: Mr.Brian Marco Antonio Amato Date of : 1950 Current Age: [age] year old Sex: male PCP: Giovanni Mclean DO REFERRING PROVIDER: Helio Cortez [address] [address] Subjective Chief Complaint: History of Present Illness: Mr.Brian Marco Antonio Amato has a past medical history of hypertension, overactive bladder and sleep apnea. Patient presents to the office today as a new patient with radiographic imaging for evaluation of cervical spine. The patient is referred by Dr. Helio Cortez for orthopedic spine evaluation. Patient was seen by Dr. Cortez on 03/24/2025 for a 6 year history of atraumatic right shoulder pain that had worsened. MRI demonstrated full-thickness tear of the supraspinatus tendon with some retraction. He complained of right sided neck pain that radiated to trapezius region as well as pain and weakness to right shoulder. He wished to proceed with right shoulder arthroscopic rotator cuff repair with possible biceps tenodesis scheduled for 04/20/2025. He was recommended to follow-up with myself for evaluation of his cervical spine prior to undergoing surgery, prompting visit today. Marco Antonio is a 74-year-old male presenting for evaluation of neck pain prior to a scheduled right rotator cuff repair on April 20. Marco Antonio reports right-sided neck pain radiating to the shoulder, persisting for 3 years. The pain is described as hard and occasionally radiates from the back of the shoulder to the neck. He denies paresthesia or hypoesthesia in the neck, but experiences occasional paresthesia in the right middle and ring fingers. He has a history of multiple surgeries, including procedures on both wrists, with plates inserted in the right wrist, leading to decreased dexterity and worsening handwriting. He attributes these issues to the wrist surgery rather than the neck pain. He denies significant difficulties with hand function. A few weeks ago, Marco Antonio experienced transient balance issues, which have since resolved. He denies any falls. The most bothersome symptom is the pain in the right shoulder, which is exacerbated by overhead activities and may coincide with neck pain. He has been managing the pain with Tylenol and Advil and underwent physical therapy for the shoulder in November. He denies a history of spine surgery. Questionnaire Generated HPI Possible Spine-Related Symptoms: Pain;Numbness/tingling;Difficult y with hand coordination/fine motor movements Symptom Onset:1 to 5 years Symptom Location(s): Neck;Arm(s) Symptom Laterality: Right-sided Aggravating Factors: None of the above Alleviating Factors: Medications Non-Surgical Therapies Tried: NSAIDS Prior Spine Surgery(s): They report no history of prior spine surgery. Image annotated by patient with symptom distribution: ISuresh MD , have reviewed the above patient-reported information and have reviewed it with the patient. Major Risk Factors Notable surgical risk factors: Smoking status: Never BMI:30.44 kg/m2. Patient's BMI would meet criteria for obesity given BMI >= 30 Current Anticoagulation/Antiplatelet Use: Aspirin Obesity Moderate Risk BMI: 30.44 kg/m2 High: BMI > 40 Moderate: BMI 30-40 Normal: BMI < 30 Diabetes normal High: A1C > 8 Moderate: A1C 7-8 Normal: A1C < 7 Hx of DVT / PE normal High: dx of DVT / PE Normal: no dx of DVT / PE Smoking normal Last Status: Never High: Current smoker Normal: Non smoker Narcotics Use normal High:NarxCare >=300 Moderate: 100-299 Normal: 0-99 Depression Unknown Risk High: PHQ-9 >14 Moderate: PHQ-9 5-14 Normal: PHQ-9 < 5 Data from [facility] Epic on prior therapies: PREVIOUS CONSERVATIVE TREATMENT: 1) Medication: Tylenol, Advil 2) Physical therapy: No recent participation for neck. Did PT in November for shoulder. 3) Pain Management: No recent participation 4) Injections: No recent injections PREVIOUS SPINE SURGERY: Denies Surgical Risk Factors: Anticoagulants/antiplatelets: ASA 81mg Objective PHYSICAL EXAM BP 139/80 (BP Site: Left Arm, BP Position: Sitting, BP Cuff Size: Large Adult) Pulse 78 Ht 5' 11 (1.803 m) Wt 218 lb 4.1 oz (99 kg) SpO2 96% BMI 30.44 kg/m 5/5 motor strength in BUE and BLE SILT throughout extremities No UMN signs Able to perform tandem gait Results: XR of cervical spine from 03/24/2025: 4 view cervical spine ordered, obtained, reviewed in office today demonstrating multilevel degenerative disc disease including significant joint space narrowing at C4-5 and spondylolisthesis at C6-7 Assessment/Plan (M48.02) Spinal stenosis of cervical region (primary encounter diagnosis) 1. Spinal stenosis of cervical region (M48.02) Patient reports chronic neck pain radiating to the shoulder with occasional paresthesia in the right middle and ring fingers. X-rays show arthritic changes and slight vertebral misalignment, but no significant instability. Symptoms are not highly suggestive of nerve compression, but further evaluation is necessary to rule out spinal stenosis or spinal cord compression. - Ordered MRI of the cervical spine to be completed prior to scheduled right rotator cuff repair on April 20. - Follow-up appointment to discuss MRI results. 2. Tear of right rotator cuff, unspecified tear extent, unspecified whether traumatic (M75.101) Patient experiences significant pain in the right shoulder, exacerbated by overhead activities. Scheduled for right rotator cuff repair on April 20. - Proceed with scheduled right rotator cuff repair on April 20. I agree with the operative note independently gathered by the clinical work station support specialist and the remaining scribed note accurately describes my personal service to the patient. documented in this encounter [facility] 03-27-2025 Note HNO ID: [id number] Author: SURESH SOTO MD Service: ? Author Type: Physician Type: Progress Notes Filed: 03/27/2025 11:05 Note Text: SPINE SURGERY NEW PATIENT Date of visit: March 27, 2025 Patient Name: Mr.Brian Marco Antonio Amato Date of : 1950 Current Age: [age] year old Sex: male PCP: Giovanni Mclean DO REFERRING PROVIDER: Helio Cortez [address] [facility] [address] [facility] [address] Subjective Chief Complaint: History of Present Illness: Mr.Brian Marco Antonio Amato has a past medical history of hypertension, overactive bladder and sleep apnea. Patient presents to the office today as a new patient with radiographic imaging for evaluation of cervical spine. The patient is referred by Dr. Helio Cortez for orthopedic spine evaluation. Patient was seen by Dr. Cortez on 03/24/2025 for a 6 year history of atraumatic right shoulder pain that had worsened. MRI demonstrated full-thickness tear of the supraspinatus tendon with some retraction. He complained of right sided neck pain that radiated to trapezius region as well as pain and weakness to right shoulder. He wished to proceed with right shoulder arthroscopic rotator cuff repair with possible biceps tenodesis scheduled for 04/20/2025. He was recommended to follow-up with myself for evaluation of his cervical spine prior to undergoing surgery, prompting visit today. Marco Antonio is a 74-year-old male presenting for evaluation of neck pain prior to a scheduled right rotator cuff repair on April 20. Marco Antonio reports right-sided neck pain radiating to the shoulder, persisting for 3 years. The pain is described as hard and occasionally radiates from the back of the shoulder to the neck. He denies paresthesia or hypoesthesia in the neck, but experiences occasional paresthesia in the right middle and ring fingers. He has a history of multiple surgeries, including procedures on both wrists, with plates inserted in the right wrist, leading to decreased dexterity and worsening handwriting. He attributes these issues to the wrist surgery rather than the neck pain. He denies significant difficulties with hand function. A few weeks ago, Marco Antonio experienced transient balance issues, which have since resolved. He denies any falls. The most bothersome symptom is the pain in the right shoulder, which is exacerbated by overhead activities and may coincide with neck pain. He has been managing the pain with Tylenol and Advil and underwent physical therapy for the shoulder in November. He denies a history of spine surgery. Questionnaire Generated HPI Possible Spine-Related Symptoms: Pain;Numbness/tingling;Difficult y with hand coordination/fine motor movements Symptom Onset:1 to 5 years Symptom Location(s): Neck;Arm(s) Symptom Laterality: Right-sided Aggravating Factors: None of the above Alleviating Factors: Medications Non-Surgical Therapies Tried: NSAIDS Prior Spine Surgery(s): They report no history of prior spine surgery. Image annotated by patient with symptom distribution: ISuresh MD , have reviewed the above patient-reported information and have reviewed it with the patient. Major Risk Factors Notable surgical risk factors: Smoking status: Never BMI:30.44 kg/m2. Patient's BMI would meet criteria for obesity given BMI >= 30 Current Anticoagulation/Antiplatelet Use: Aspirin Obesity Moderate Risk BMI: 30.44 kg/m2 High: BMI > 40 Moderate: BMI 30-40 Normal: BMI < 30 Diabetes normal High: A1C > 8 Moderate: A1C 7-8 Normal: A1C < 7 Hx of DVT / PE normal High: dx of DVT / PE Normal: no dx of DVT / PE Smoking normal Last Status: Never High: Current smoker Normal: Non smoker Narcotics Use normal High:NarxCare >=300 Moderate: 100-299 Normal: 0-99 Depression Unknown Risk High: PHQ-9 >14 Moderate: PHQ-9 5-14 Normal: PHQ-9 < 5 Data from [facility] Epic on prior therapies: PREVIOUS CONSERVATIVE TREATMENT: 1) Medication: Tylenol, Advil 2) Physical therapy: No recent participation for neck. Did PT in November for shoulder. 3) Pain Management: No recent participation 4) Injections: No recent injections PREVIOUS SPINE SURGERY: Denies Surgical Risk Factors: Anticoagulants/antiplatelets: ASA 81mg Objective PHYSICAL EXAM BP 139/80 (BP Site: Left Arm, BP Position: Sitting, BP Cuff Size: Large Adult) Pulse 78 Ht 5' 11 (1.803 m) Wt 218 lb 4.1 oz (99 kg) SpO2 96% BMI 30.44 kg/m? 5/5 motor strength in BUE and BLE SILT throughout extremities No UMN signs Able to perform tandem gait Results: XR of cervical spine from 03/24/2025: 4 view cervical spine ordered, obtained, reviewed in office today demonstrating multilevel degenerative disc disease including significant joint space narrowing at C4-5 and spondylolisthesis at C6-7 Assessment/Plan (M48.02) Spinal stenosis of cervical region (primary encounter diagnosis) 1. Spinal stenosis of cervical region (M48.02) Patient reports chronic neck pain radiating to the (more content not included)... [facility] 03-25-2025 Telephone encounter Note Attempted to contact patient to schedule appointment with Dr Soto at request of Dr Cortez. Per velasquez Gilbert to double book on Sunday, 03/27. Left message with office call back information and my extension. [facility] 03-25-2025 Miscellaneous Notes Attempted to contact patient to schedule appointment with Dr Soto at request of Dr Cortez. Per velasquez Gilbert to double book on 03/27. Left message with office call back information and my extension. documented in this encounter [facility] 03-24-2025 Note HNO ID: [id number] Author: HELIO CORTEZ MD Service: ? Author Type: Physician Type: Progress Notes Filed: 03/24/2025 15:56 Note Text: [facility]ative Scheduling Details Diagnosis: (M54.12) Radiculopathy, cervical (primary encounter diagnosis) (S46.011D) Traumatic complete tear of right rotator cuff, subsequent encounter (S46.211A) Rupture of right proximal biceps tendon, initial encounter Procedure: Right shoulder arthroscopic rotator cuff repair, possible biceps tenodesis OR Time Needed: 1.5 hours Location: [] [facility] [x] [facility] [] [facility] Equipment Request: Arthrex, beachchair [] Mini-C-arm [] Large C-arm Anesthesia: General with block Post op appointment: 2 weeks Inpatient stay: No Pre Testing Needed: Yes Physical Therapy: No Time Frame for scheduling: elective [facility] 03-24-2025 History of Presen t illness Narrative [facility] Scheduling Details Diagnosis: (M54.12) Radiculopathy, cervical (primary encounter diagnosis) (S46.011D) Traumatic complete tear of right rotator cuff, subsequent encounter (S46.211A) Rupture of right proximal biceps tendon, initial encounter Procedure: Right shoulder arthroscopic rotator cuff repair, possible biceps tenodesis OR Time Needed: 1.5 hours Location: [] [facility] [x] [facility] [] [facility] Equipment Request: Arthrex, beachchair [] Mini-C-arm [] Large C-arm Anesthesia: General with block Post op appointment: 2 weeks Inpatient stay: No Pre Testing Needed: Yes Physical Therapy: No Time Frame for scheduling: elective Images from the original note were not included. Helio Cortez MD Orthopedic Sports Medicine Surgery [address] [place] [address] [facility] [address] [place] [address] Mariah Lemos , [facility] [address] [id number] NAME: Shimon Amato : 1950 DATE: 03/24/2025 Reason for Visit/Chief Complaint: Right shoulder pain History of present illness: Marco Antonio is a 74 year old male who presents for follow up evaluation of 6-year history of atraumatic right shoulder pain which has worsened recently. At the patient's last visit, we did review her MRI findings demonstrating a full-thickness tear of the supraspinatus tendon with some retraction. At that time, he elected to proceed with conservative treatment. He continues to have pain and weakness in his right shoulder and presents to discuss surgical intervention. He also has right-sided neck pain which radiates into his trapezius region. I have reviewed and updated the patient's past medical history, past surgical history, social history, and family history. This is located both in the patient's note and their intake form that has been scanned into the medical record for today's visit. 14 point review of systems was reviewed per signed intake sheet and is otherwise negative except as noted above. Objective: Constitutional: Well developed, well nourished, no acute distress HEENT: mucous membranes moist, normocephalic atraumatic Psychologic: appropriate mood and affect Chest: bilateral chest elevations, symmetric Cardiovascular: pink extremities, peripheral perfusion intact Respiratory: no respiratory distress, nonlabored on room air Abdomen: soft, nontender Neurologic: orientation to person, place and time Right SHOULDER EXAM There is right sided cervical tenderness and positive Spurling's. No obvious atrophy or deformity. No scapular dyskinesia. Patient has tenderness about the anterolateral shoulder. Active elevation is 170 , external rotation at the side 60 , internal rotation to T10. There is full passive range of motion. There is pain with elevation and resisted strength testing. There is pain with resisted external rotation. There is moderate weakness to supraspinatus testing, mild weakness to external rotation. Lift-off test is normal. The patient has a painful arc of abduction and positive impingement signs. There is a negative speed's test and negative Yergason's test. There is no significant pain with cross-arm adduction. No signs of instability or apprehension. Distal neurovascular exam is normal. The patient has a warm and well-perfused upper extremity with capillary refill less than 2 seconds. Sensation is intact to light touch in terminal nerve distributions. The patient has no palpable epitrochlear lymphadenopathy. Imaging: X-Rays: 3 views right shoulder personally reviewed demonstrating no acute abnormalities. Well-maintained glenohumeral joint space with no superior migration of the humeral head. MRI right shoulder personally reviewed and reviewed with patient demonstrating a full-thickness tear of the anterior supraspinatus tendon with chronic edges of the tear. There is no significant muscular atrophy. 4 view cervical spine ordered, obtained, reviewed in office today demonstrating multilevel degenerative disc disease including significant joint space narrowing at C4-5 and spondylolisthesis at C6-7 Assessment/Plan 74-year-old male with acute on chronic right shoulder pain, with full-thickness atraumatic right rotator cuff tear -I discussed treatment options with the patient. He continues to have pain despite physical therapy. He has a full-thickness rotator cuff tear with retraction to the mid humeral head. I discussed the risks of right shoulder arthroscopic rotator cuff repair with possible biceps tenodesis including bleeding, infection, retear, stiffness, anesthetic complications, the patient elected to proceed. His consent was obtained in office today. We will plan on surgery at his earliest convenience. I also will refer him to Dr. Soto for further evaluation of his cervical spine prior to surgery. All questions were answered at today's visit Will continue to monitor patient for Radiculopathy, cervical (primary encounter diagnosis) Traumatic complete tear of right rotator cuff, subsequent encounter Rupture of right proximal biceps tendon, initial encounter, patient to schedule visit as per follow up discussed. We have made the decision to move forward with a major orthopaedic surgery today, and this represents the highest form of medical decision-making complexity. The patient's diagnosis of Radiculopathy, cervical (primary encounter diagnosis) Traumatic complete tear of right rotator cuff, subsequent encounter Rupture of right proximal biceps tendon, initial encounter represents a chronic pathology/diagnosis/injury that represents a current or possible direct threat to bodily function. Helio Cortez MD 03/24/2025 3:55 PM documented in this encounter [facility] 03-24-2025 Note HNO ID: [id number] Author: HELIO CORTEZ MD Service: ? Author Type: Physician Type: Progress Notes Filed: 03/24/2025 15:56 Note Text: Helio Cortez MD Orthopedic Sports Medicine Surgery [address] [place] [address] [place] [address] NAME: Shimon Amato : 1950 DATE: 03/24/2025 Reason for Visit/Chief Complaint: Right shoulder pain History of present illness: Marco Antonio is a 74 year old male who presents for follow up evaluation of 6-year history of atraumatic right shoulder pain which has worsened recently. At the patient's last visit, we did review her MRI findings demonstrating a full-thickness tear of the supraspinatus tendon with some retraction. At that time, he elected to proceed with conservative treatment. He continues to have pain and weakness in his right shoulder and presents to discuss surgical intervention. He also has right-sided neck pain which radiates into his trapezius region. I have reviewed and updated the patient's past medical history, past surgical history, social history, and family history. This is located both in the patient's note and their intake form that has been scanned into the medical record for today's visit. 14 point review of systems was reviewed per signed intake sheet and is otherwise negative except as noted above. Objective: Constitutional: Well developed, well nourished, no acute distress HEENT: mucous membranes moist, normocephalic atraumatic Psychologic: appropriate mood and affect Chest: bilateral chest elevations, symmetric Cardiovascular: pink extremities, peripheral perfusion intact Respiratory: no respiratory distress, nonlabored on room air Abdomen: soft, nontender Neurologic: orientation to person, place and time Right SHOULDER EXAM There is right sided cervical tenderness and positive Spurling's. No obvious atrophy or deformity. No scapular dyskinesia. Patient has tenderness about the anterolateral shoulder. Active elevation is 170?, external rotation at the side 60?, internal rotation to T10. There is full passive range of motion. There is pain with elevation and resisted strength testing. There is pain with resisted external rotation. There is moderate weakness to supraspinatus testing, mild weakness to external rotation. Lift-off test is normal. The patient has a painful arc of abduction and positive impingement signs. There is a negative speed's test and negative Yergason's test. There is no significant pain with cross-arm adduction. No signs of instability or apprehension. Distal neurovascular exam is normal. The patient has a warm and well-perfused upper extremity with capillary refill less than 2 seconds. Sensation is intact to light touch in terminal nerve distributions. The patient has no palpable epitrochlear lymphadenopathy. Imaging: X-Rays: 3 views right shoulder personally reviewed demonstrating no acute abnormalities. Well-maintained glenohumeral joint space with no superior migration of the humeral head. MRI right shoulder personally reviewed and reviewed with patient demonstrating a full-thickness tear of the anterior supraspinatus tendon with chronic edges of the tear. There is no significant muscular atrophy. 4 view cervical spine ordered, obtained, reviewed in office today demonstrating multilevel degenerative disc disease including significant joint space narrowing at C4-5 and spondylolisthesis at C6-7 Assessment/Plan 74-year-old male with acute on chronic right shoulder pain, with full-thickness atraumatic right rotator cuff tear -I discussed treatment options with the patient. He continues to have pain despite physical therapy. He has a full-thickness rotator cuff tear with retraction to the mid humeral head. I discussed the risks of right shoulder arthroscopic rotator cuff repair with possible biceps tenodesis including bleeding, infection, retear, stiffness, anesthetic complications, the patient elected to proceed. His consent was obtained in office today. We will plan on surgery at his earliest convenience. I also will refer him to Dr. Soto for further evaluation of his cervical spine prior to surgery. All questions were answered at today's visit Will continue to monitor patient for Radiculopathy, cervical (primary encounter diagnosis) Traumatic complete tear of right rotator cuff, subsequent encounter Rupture of right proximal biceps tendon, initial encounter, patient to schedule visit as per follow up discussed. We have made the decision to move forward with a major orthopaedic surgery today, and this represents the highest form of medical decision-making complexity. The patient's diagnosis of Radiculopathy, cervical (primary encounter diagnosis) Traumatic complete tear of right rotator cuff, subsequent encounter Rupture of right proximal biceps tendon (more content not included)... [facility] 03-12-2025 Telephone encounter Note I got a message this morning from Dr. Cortez that Chris Mclean' neighbor wants to see Dr. Cortez again for his shoulder. I just called, but had to leave a message as no one answered. I left my direct number and the appt line number to call back to schedule. [facility] 03-12-2025 Miscellaneous Notes I got a message this morning from Dr. Cortez that Chris Mclean' neighbor wants to see Dr. Cortez again for his shoulder. I just called, but had to leave a message as no one answered. I left my direct number and the appt line number to call back to schedule. documented in this encounter [facility] 2024 Note HNO ID: [id number] Author: HELIO CORTEZ MD Service: ? Author Type: Physician Type: Progress Notes Filed: 2024 15:27 Note Text: Helio Cortez MD Orthopedic Sports Medicine Surgery [address] [facility], [place] [address] [address] [place] [address] [address], [facility] [address], [place] [address] NAME: Shimon Amato : 1950 DATE: 2024 Reason for Visit/Chief Complaint: Right shoulder pain History of present illness: Marco Antonio is a 74 year old male who presents for follow up evaluation of 6-year history of atraumatic right shoulder pain which has worsened recently. The patient had failed conservative treatment and therefore at his last visit, I ordered an MRI. He is here for follow-up. He continues to have pain that is about 2 out of 10 on a daily basis. He states the worst the pain gets is 5 out of 10. He has trouble sleeping on his right side occasionally and has difficulty with overhead activities. 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 I have reviewed and updated the patient's past medical history, past surgical history, social history, and family history. This is located both in the patient's note and their intake form that has been scanned into the medical record for today's visit. 14 point review of systems was reviewed per signed intake sheet and is otherwise negative except as noted above. Objective: Constitutional: Well developed, well nourished, no acute distress HEENT: mucous membranes moist, normocephalic atraumatic Psychologic: appropriate mood and affect Chest: bilateral chest elevations, symmetric Cardiovascular: pink extremities, peripheral perfusion intact Respiratory: no respiratory distress, nonlabored on room air Abdomen: soft, nontender Neurologic: orientation to person, place and time Right SHOULDER EXAM There is no cervical tenderness and negative Spurling's. No obvious atrophy or deformity. No scapular dyskinesia. Patient has tenderness about the anterolateral shoulder. Active elevation is 170?, external rotation at the side 60?, internal rotation to T10. There is full passive range of motion. There is pain with elevation and resisted strength testing. There is pain with resisted external rotation. There is moderate weakness to supraspinatus testing, mild weakness to external rotation. Lift-off test is normal. The patient has a painful arc of abduction and positive impingement signs. There is a negative speed's test and negative Yergason's test. There is no significant pain with cross-arm adduction. No signs of instability or apprehension. Distal neurovascular exam is normal. The patient has a warm and well-perfused upper extremity with capillary refill less than 2 seconds. Sensation is intact to light touch in terminal nerve distributions. The patient has no palpable epitrochlear lymphadenopathy. Imaging: X-Rays: 3 views right shoulder personally reviewed demonstrating no acute abnormalities. Well-maintained glenohumeral joint space with no superior migration of the humeral head. MRI right shoulder personally reviewed and reviewed with patient demonstrating a full-thickness tear of the anterior supraspinatus tendon with chronic edges of the tear. There is no significant muscular atrophy. Assessment/Plan 74-year-old male with acute on chronic right shoulder pain, with full-thickness atraumatic right rotator cuff tear -I discussed treatment options with the patient. I did discuss surgical and nonsurgical options. Did discuss a rotator cuff repair at length with the patient. I also discussed options such as a subacromial injection. After discussing all options with the patient, he elected to proceed with conservative treatment. He will continue to focus on rotator cuff strengthening exercises. I did explain that he could return to my office at any time to get a subacromial injection. I am happy to see him in the future if he would like to talk about surgical intervention. All questions were answered at today's visit. Helio Cortez MD 2024 3:27 PM [facility] 2024 History of Presen t illness Narrative Images from the original note were not included. Helio Cortez MD Orthopedic Sports Medicine Surgery [address] [facility] [place] [address] [address] [address] [place] [address] [address] [facility] , [facility] [address], [place] [address] NAME: Shimon Amato : 1950 DATE: 2024 Reason for Visit/Chief Complaint: Right shoulder pain History of present illness: Marco Antonio is a 74 year old male who presents for follow up evaluation of 6-year history of atraumatic right shoulder pain which has worsened recently. The patient had failed conservative treatment and therefore at his last visit, I ordered an MRI. He is here for follow-up. He continues to have pain that is about 2 out of 10 on a daily basis. He states the worst the pain gets is 5 out of 10. He has trouble sleeping on his right side occasionally and has difficulty with overhead activities. 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 I have reviewed and updated the patient's past medical history, past surgical history, social history, and family history. This is located both in the patient's note and their intake form that has been scanned into the medical record for today's visit. 14 point review of systems was reviewed per signed intake sheet and is otherwise negative except as noted above. Objective: Constitutional: Well developed, well nourished, no acute distress HEENT: mucous membranes moist, normocephalic atraumatic Psychologic: appropriate mood and affect Chest: bilateral chest elevations, symmetric Cardiovascular: pink extremities, peripheral perfusion intact Respiratory: no respiratory distress, nonlabored on room air Abdomen: soft, nontender Neurologic: orientation to person, place and time Right SHOULDER EXAM There is no cervical tenderness and negative Spurling's. No obvious atrophy or deformity. No scapular dyskinesia. Patient has tenderness about the anterolateral shoulder. Active elevation is 170 , external rotation at the side 60 , internal rotation to T10. There is full passive range of motion. There is pain with elevation and resisted strength testing. There is pain with resisted external rotation. There is moderate weakness to supraspinatus testing, mild weakness to external rotation. Lift-off test is normal. The patient has a painful arc of abduction and positive impingement signs. There is a negative speed's test and negative Yergason's test. There is no significant pain with cross-arm adduction. No signs of instability or apprehension. Distal neurovascular exam is normal. The patient has a warm and well-perfused upper extremity with capillary refill less than 2 seconds. Sensation is intact to light touch in terminal nerve distributions. The patient has no palpable epitrochlear lymphadenopathy. Imaging: X-Rays: 3 views right shoulder personally reviewed demonstrating no acute abnormalities. Well-maintained glenohumeral joint space with no superior migration of the humeral head. MRI right shoulder personally reviewed and reviewed with patient demonstrating a full-thickness tear of the anterior supraspinatus tendon with chronic edges of the tear. There is no significant muscular atrophy. Assessment/Plan 74-year-old male with acute on chronic right shoulder pain, with full-thickness atraumatic right rotator cuff tear -I discussed treatment options with the patient. I did discuss surgical and nonsurgical options. Did discuss a rotator cuff repair at length with the patient. I also discussed options such as a subacromial injection. After discussing all options with the patient, he elected to proceed with conservative treatment. He will continue to focus on rotator cuff strengthening exercises. I did explain that he could return to my office at any time to get a subacromial injection. I am happy to see him in the future if he would like to talk about surgical intervention. All questions were answered at today's visit. Helio Cortez MD 2024 3:27 PM documented in this encounter [facility] 12-17-2024 History of Presen t illness Narrative Radiology Service Progress Note PATIENT NAME: Shimon Amato DATE OF SERVICE: December 17, 2024 TIME: 9:28 AM PATIENT IDENTITY VERIFICATION COMPLETED USING TWO (2) IDENTIFIERS: Name and Date of confirmed by patient verbally. FALL SCREENING: Has the patient had 2 falls in the last year or 1 fall with injury or currently using an Ambulatory Assistive Device (Walker, Cane, Wheelchair, Crutches, etc.)? No PATIENT GENDER DATA: Assigned male at PATIENT RELEVANT IMPLANT DATA REVIEWED: Yes PATIENT PRESENTS WITH AN IMPLANTABLE OR ATTACHED PARACHUTE MANUFACTURING SUPERVISOR: No RADIOLOGY DEPARTMENT: MR; Exam(s) Completed: Upper MSK: Shoulder, right PERIPHERAL IV DATA: Not applicable SIGNED BY: MOISÉS Shetty) December 17, 2024 9:28 AM documented in this encounter [facility] 12-17-2024 Note HNO ID: [id number] Author: DEBORAH MCFARLANE RT(R) Service: ? Author Type: Technologist Type: Progress Notes Filed: 12/17/2024 09:28 Note Text: Radiology Service Progress Note PATIENT NAME: Shimon Amato DATE OF SERVICE: December 17, 2024 TIME: 9:28 AM PATIENT IDENTITY VERIFICATION COMPLETED USING TWO (2) IDENTIFIERS: Name and Date of confirmed by patient verbally. FALL SCREENING: Has the patient had 2 falls in the last year or 1 fall with injury or currently using an Ambulatory Assistive Device (Walker, Cane, Wheelchair, Crutches, etc.)? No PATIENT GENDER DATA: Assigned male at PATIENT RELEVANT IMPLANT DATA REVIEWED: Yes PATIENT PRESENTS WITH AN IMPLANTABLE OR ATTACHED PARACHUTE MANUFACTURING SUPERVISOR: No RADIOLOGY DEPARTMENT: MR; Exam(s) Completed: Upper MSK: Shoulder, right PERIPHERAL IV DATA: Not applicable SIGNED BY: RT Diogenes(R) December 17, 2024 9:28 AM [facility] 12-16-2024 Note HNO ID: [id number] Author: HELIO CORTEZ MD Service: ? Author Type: Physician Type: Progress Notes Filed: 12/16/2024 14:02 Note Text: Helio Cortez MD Orthopedic Sports Medicine Surgery [address] [place] [address] [address] [address] [place] [address] [address] [place] [address] [address] NAME: Shimon Amato : 1950 DATE: 12/16/2024 Reason for Visit/Chief Complaint: Right shoulder pain History of present illness: Marco Antonio is a 73 year old male who presents for follow up evaluation of 6-year history of atraumatic right shoulder pain which has worsened recently. At the patient's last visit, I sent him to formal physical therapy. He just completed a course of physical therapy and states that his pain has slowly been improving. He still notices weakness with certain motions of his right shoulder and still has daily pain. Most of his pain is over his lateral shoulder as well as over the scapula. He has undergone a corticosteroid injection with minimal relief. I have reviewed and updated the patient's past medical history, past surgical history, social history, and family history. This is located both in the patient's note and their intake form that has been scanned into the medical record for today's visit. 14 point review of systems was reviewed per signed intake sheet and is otherwise negative except as noted above. Objective: Constitutional: Well developed, well nourished, no acute distress HEENT: mucous membranes moist, normocephalic atraumatic Psychologic: appropriate mood and affect Chest: bilateral chest elevations, symmetric Cardiovascular: pink extremities, peripheral perfusion intact Respiratory: no respiratory distress, nonlabored on room air Abdomen: soft, nontender Neurologic: orientation to person, place and time Right SHOULDER EXAM There is no cervical tenderness and negative Spurling's. No obvious atrophy or deformity. No scapular dyskinesia. Patient has tenderness about the anterolateral shoulder. Active elevation is 170?, external rotation at the side 60?, internal rotation to T10. There is full passive range of motion. There is pain with elevation and resisted strength testing. There is pain with resisted external rotation. There is moderate weakness to supraspinatus testing, mild weakness to external rotation. Lift-off test is normal. The patient has a painful arc of abduction and positive impingement signs. There is a negative speed's test and negative Yergason's test. There is no significant pain with cross-arm adduction. No signs of instability or apprehension. Distal neurovascular exam is normal. The patient has a warm and well-perfused upper extremity with capillary refill less than 2 seconds. Sensation is intact to light touch in terminal nerve distributions. The patient has no palpable epitrochlear lymphadenopathy. Imaging: X-Rays: 3 views right shoulder personally reviewed demonstrating no acute abnormalities. Well-maintained glenohumeral joint space with no superior migration of the humeral head. Assessment/Plan 73-year-old male with right shoulder pain concerning for atraumatic complete rotator cuff tear -I discussed treatment options with the patient. He continues to have pain and weakness despite physical therapy and has physical exam findings concerning for a rotator cuff tear. At this time, I will order an MRI of his right shoulder. He will follow-up after the MRI to update the treatment plan. All questions were answered at today's visit. Will continue to monitor patient for Nontraumatic tear of right rotator cuff, unspecified tear extent (primary encounter diagnosis) Rupture of right proximal biceps tendon, initial encounter, patient to schedule visit as per follow up discussed. Helio Cortez MD 12/16/2024 2:01 PM [facility] 02-04-2025 History of Presen t illness Narrative Images from the original note were not included. Helio Cortez MD Orthopedic Sports Medicine Surgery [address] [facility], [facility] [address] [address] [place] [address] [facility] [address], [address], [place] [address] NAME: Shimon Amato : 1950 DATE: 12/16/2024 Reason for Visit/Chief Complaint: Right shoulder pain History of present illness: Marco Antonio is a 73 year old male who presents for follow up evaluation of 6-year history of atraumatic right shoulder pain which has worsened recently. At the patient's last visit, I sent him to formal physical therapy. He just completed a course of physical therapy and states that his pain has slowly been improving. He still notices weakness with certain motions of his right shoulder and still has daily pain. Most of his pain is over his lateral shoulder as well as over the scapula. He has undergone a corticosteroid injection with minimal relief. I have reviewed and updated the patient's past medical history, past surgical history, social history, and family history. This is located both in the patient's note and their intake form that has been scanned into the medical record for today's visit. 14 point review of systems was reviewed per signed intake sheet and is otherwise negative except as noted above. Objective: Constitutional: Well developed, well nourished, no acute distress HEENT: mucous membranes moist, normocephalic atraumatic Psychologic: appropriate mood and affect Chest: bilateral chest elevations, symmetric Cardiovascular: pink extremities, peripheral perfusion intact Respiratory: no respiratory distress, nonlabored on room air Abdomen: soft, nontender Neurologic: orientation to person, place and time Right SHOULDER EXAM There is no cervical tenderness and negative Spurling's. No obvious atrophy or deformity. No scapular dyskinesia. Patient has tenderness about the anterolateral shoulder. Active elevation is 170 , external rotation at the side 60 , internal rotation to T10. There is full passive range of motion. There is pain with elevation and resisted strength testing. There is pain with resisted external rotation. There is moderate weakness to supraspinatus testing, mild weakness to external rotation. Lift-off test is normal. The patient has a painful arc of abduction and positive impingement signs. There is a negative speed's test and negative Yergason's test. There is no significant pain with cross-arm adduction. No signs of instability or apprehension. Distal neurovascular exam is normal. The patient has a warm and well-perfused upper extremity with capillary refill less than 2 seconds. Sensation is intact to light touch in terminal nerve distributions. The patient has no palpable epitrochlear lymphadenopathy. Imaging: X-Rays: 3 views right shoulder personally reviewed demonstrating no acute abnormalities. Well-maintained glenohumeral joint space with no superior migration of the humeral head. Assessment/Plan 73-year-old male with right shoulder pain concerning for atraumatic complete rotator cuff tear -I discussed treatment options with the patient. He continues to have pain and weakness despite physical therapy and has physical exam findings concerning for a rotator cuff tear. At this time, I will order an MRI of his right shoulder. He will follow-up after the MRI to update the treatment plan. All questions were answered at today's visit. Will continue to monitor patient for Nontraumatic tear of right rotator cuff, unspecified tear extent (primary encounter diagnosis) Rupture of right proximal biceps tendon, initial encounter, patient to schedule visit as per follow up discussed. Helio Cortez MD 12/16/2024 2:01 PM documented in this encounter [facility] 10-23-2024 Note HNO ID: [id number] Author: HELIO CORTEZ MD Service: ? Author Type: Physician Type: Progress Notes Filed: 10/23/2024 12:45 Note Text: Helio Cortez MD Orthopedic Sports Medicine Surgery [address] [facility] [address], [facility] [address] [facility] [place] [address] [address] , [facility] [address], [place] [address] NAME: Shimon Amato : 1950 DATE: 10/23/2024 Reason for Visit/Chief Complaint: Right shoulder pain History of present illness: Marco Antonio is a 73 year old male who presents for evaluation of 6-year history of atraumatic right shoulder pain which has worsened recently. The patient denies any specific injury that he remembers to his right shoulder. He started to develop pain over his right trapezius region, scapular region and lateral shoulder. He also noticed associated weakness. His primary care physician has performed a few subacromial injections which she states helped his pain for maybe 4 to 6 weeks. He denies any numbness. 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 I have reviewed and updated the patient's past medical history, past surgical history, social history, and family history. This is located both in the patient's note and their intake form that has been scanned into the medical record for today's visit. 14 point review of systems was reviewed per signed intake sheet and is otherwise negative except as noted above. Objective: Constitutional: Well developed, well nourished, no acute distress HEENT: mucous membranes moist, normocephalic atraumatic Psychologic: appropriate mood and affect Chest: bilateral chest elevations, symmetric Cardiovascular: pink extremities, peripheral perfusion intact Respiratory: no respiratory distress, nonlabored on room air Abdomen: soft, nontender Neurologic: orientation to person, place and time Right SHOULDER EXAM There is no cervical tenderness and negative Spurling's. No obvious atrophy or deformity. No scapular dyskinesia. Patient has tenderness about the anterolateral shoulder. Active elevation is 170?, external rotation at the side 60?, internal rotation to T10. There is full passive range of motion. There is pain with elevation and resisted strength testing. There is pain with resisted external rotation. There is moderate weakness to supraspinatus testing, mild weakness to external rotation. Lift-off test is normal. The patient has a painful arc of abduction and positive impingement signs. There is a negative speed's test and negative Yergason's test. There is no significant pain with cross-arm adduction. No signs of instability or apprehension. Distal neurovascular exam is normal. The patient has a warm and well-perfused upper extremity with capillary refill less than 2 seconds. Sensation is intact to light touch in terminal nerve distributions. The patient has no palpable epitrochlear lymphadenopathy. Imaging: X-Rays: 3 views right shoulder personally reviewed demonstrating no acute abnormalities. Well-maintained glenohumeral joint space with no superior migration of the humeral head. Assessment/Plan 73-year-old male with right shoulder pain concerning for atraumatic complete rotator cuff tear -I discussed treatment options with the patient. Do think he would benefit from physical therapy. I placed an order and they will work on therapy and strengthening and range of motion exercises. I will see him back in 6 to 8 weeks for repeat evaluation. If he continues to have pain despite physical therapy, I will order an MRI. All questions were answered at today's visit. Will continue to monitor patient for Rupture of right proximal biceps tendon, initial encounter (primary encounter diagnosis) Nontraumatic tear of right rotator cuff, unspecified tear extent, patient to schedule visit as per follow up discussed. Helio Cortez MD 10/23/2024 [facility] 10-23-2024 History of Presen t illness Narrative Images from the original note were not included. Helio Cortez MD Orthopedic Sports Medicine Surgery [address] [place] [address] [address] [address] [place] [address] [facility] [address], [place] [address] NAME: Shimon Amato : 1950 DATE: 10/23/2024 Reason for Visit/Chief Complaint: Right shoulder pain History of present illness: Marco Antonio is a 73 year old male who presents for evaluation of 6-year history of atraumatic right shoulder pain which has worsened recently. The patient denies any specific injury that he remembers to his right shoulder. He started to develop pain over his right trapezius region, scapular region and lateral shoulder. He also noticed associated weakness. His primary care physician has performed a few subacromial injections which she states helped his pain for maybe 4 to 6 weeks. He denies any numbness. 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 I have reviewed and updated the patient's past medical history, past surgical history, social history, and family history. This is located both in the patient's note and their intake form that has been scanned into the medical record for today's visit. 14 point review of systems was reviewed per signed intake sheet and is otherwise negative except as noted above. Objective: Constitutional: Well developed, well nourished, no acute distress HEENT: mucous membranes moist, normocephalic atraumatic Psychologic: appropriate mood and affect Chest: bilateral chest elevations, symmetric Cardiovascular: pink extremities, peripheral perfusion intact Respiratory: no respiratory distress, nonlabored on room air Abdomen: soft, nontender Neurologic: orientation to person, place and time Right SHOULDER EXAM There is no cervical tenderness and negative Spurling's. No obvious atrophy or deformity. No scapular dyskinesia. Patient has tenderness about the anterolateral shoulder. Active elevation is 170 , external rotation at the side 60 , internal rotation to T10. There is full passive range of motion. There is pain with elevation and resisted strength testing. There is pain with resisted external rotation. There is moderate weakness to supraspinatus testing, mild weakness to external rotation. Lift-off test is normal. The patient has a painful arc of abduction and positive impingement signs. There is a negative speed's test and negative Yergason's test. There is no significant pain with cross-arm adduction. No signs of instability or apprehension. Distal neurovascular exam is normal. The patient has a warm and well-perfused upper extremity with capillary refill less than 2 seconds. Sensation is intact to light touch in terminal nerve distributions. The patient has no palpable epitrochlear lymphadenopathy. Imaging: X-Rays: 3 views right shoulder personally reviewed demonstrating no acute abnormalities. Well-maintained glenohumeral joint space with no superior migration of the humeral head. Assessment/Plan 73-year-old male with right shoulder pain concerning for atraumatic complete rotator cuff tear -I discussed treatment options with the patient. Do think he would benefit from physical therapy. I placed an order and they will work on therapy and strengthening and range of motion exercises. I will see him back in 6 to 8 weeks for repeat evaluation. If he continues to have pain despite physical therapy, I will order an MRI. All questions were answered at today's visit. Will continue to monitor patient for Rupture of right proximal biceps tendon, initial encounter (primary encounter diagnosis) Nontraumatic tear of right rotator cuff, unspecified tear extent, patient to schedule visit as per follow up discussed. Helio Cortez MD 10/23/2024 documented in this encounter [facility] 09-26-2024 Note HNO ID: [id number] Author: KAT PALOMO PA-C Service: ? 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 He is doing well, mentions his numbness and tingling he had prior to her surgery have fully resolved. No new concerns today. Exam: Left hand Incision is healing well with no signs of infection, sutures are intact. Sensation on the ulnar, median, radial nerve distributions are intact. AIN, PIN, ulnar motor intact. Able to make a full fist. Negative Pillar pain. APB strength 5 out of 5. Radial pulse 2+. Assessment/Plan: No diagnosis found. Sutures were removed today, patient tolerated well. May wash the incision with warm soapy water but may not submerge or soak it until fully healed which may take 3-5 days. Do not apply any lotions, creams or ointments until fully healed. Once incision is fully healed, may start applying lotion with vitamin E, Vaseline, Eudora butter, etc to help with scar healing. Educated on deep tissue massaging, scar modalities as well as desensitization exercises. Patient may start using the extremity as tolerated, advise to slowly wean back to regular use. Watch for any signs or symptoms of infection, let us know immediately if notices any of these, patient understood. As for his C5-C6 radiculopathy, we will recast for him to Dr. Winston. He agreed. Follow-up in the future as needed. Patient was also evaluated by Dr Stephan Palomo PA-C Hand Surgery The above reflects my independent exam and review. I saw and examined the patient myself personally. Parts of the HPI, ROS, exam and impression/plan may have been copied from my personal previous clinical note and remain pertinent. Current changes have been made and documented today. Other parts or date were deleted if not relevant for today. Plan as outlined. *This note was produced using speech recognition software and may contain errors related to that system including but not limited to punctuation, spelling, grammar, gender, and words or phrases that may be inappropriate. [facility] 09-26-2024 History of Presen t illness Narrative Images from the original note were not included. HAND SURGERY POST-OP NOTE Surgical Hx: 1999 R CTR at [facility] c/b neuroma excision 04/2020 R wrist arthrodesis w/ Dr Lacy Taylor CTS EMG-L severe CTS, L C5/6 radic w/o denervation 09/09/2024 left carpal tunnel release Interval Hx: Patient is 16 days post op. He is doing well, mentions his numbness and tingling he had prior to her surgery have fully resolved. No new concerns today. Exam: Left hand Incision is healing well with no signs of infection, sutures are intact. Sensation on the ulnar, median, radial nerve distributions are intact. AIN, PIN, ulnar motor intact. Able to make a full fist. Negative Pillar pain. APB strength 5 out of 5. Radial pulse 2+. Assessment/Plan: No diagnosis found. Sutures were removed today, patient tolerated well. May wash the incision with warm soapy water but may not submerge or soak it until fully healed which may take 3-5 days. Do not apply any lotions, creams or ointments until fully healed. Once incision is fully healed, may start applying lotion with vitamin E, Vaseline, Eudora butter, etc to help with scar healing. Educated on deep tissue massaging, scar modalities as well as desensitization exercises. Patient may start using the extremity as tolerated, advise to slowly wean back to regular use. Watch for any signs or symptoms of infection, let us know immediately if notices any of these, patient understood. As for his C5-C6 radiculopathy, we will recast for him to Dr. Winston. He agreed. Follow-up in the future as needed. Patient was also evaluated by Dr Stephan Palomo PA-C Hand Surgery The above reflects my independent exam and review. I saw and examined the patient myself personally. Parts of the HPI, ROS, exam and impression/plan may have been copied from my personal previous clinical note and remain pertinent. Current changes have been made and documented today. Other parts or date were deleted if not relevant for today. Plan as outlined. *This note was produced using speech recognition software and may contain errors related to that system including but not limited to punctuation, spelling, grammar, gender, and words or phrases that may be inappropriate. documented in this encounter [facility] 08-22-2024 Note HNO ID: [id number] Author: STEPHAN YUN MD Service: ? 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 [facility] c/b neuroma excision 04/2020 R wrist arthrodesis w/ Dr House L CTS EMG-L severe CTS, L C5/6 radic w/o denervation Years of left hand numbness and aching pain that is gotten worse Currently the radial digits are numb all the time PMH: PAST MEDICAL HISTORY Diagnosis Date Benign non-nodular prostatic hyperplasia with lower urinary tract symptoms 09/15/2015 Hypertension OAB (overactive bladder) Sleep apnea ALLERGIES Allergen Reactions Latex Rash Social History Tobacco Use Smoking status: Never Smokeless tobacco: Never Vaping Use Vaping status: Never Used Substance Use Topics Alcohol use: Yes Alcohol/week: 2.0 standard drinks of alcohol Types: 2 Glasses of Wine (5oz) per week Comment: few times a month Drug use: No Review of Systems: 12 point review of systems was performed and found to be non-contributory Exam: Left hand Skin intact, no obvious swelling Full finger flexion/extension, FPL/EPL intact Fingers wwp SILT radial, decree sensation radial digits Positive Tinel's at the wrist over the carpal tunnel, positive flexion/compression, mild thenar atrophy, APB 4+/5 strength Negative Tinel's at the wrist over Guyon's, negative Tinel's at the elbow, no 1st ESTIVEN atrophy, IO 5/5 strength 2PD not tested Imaging: XR 3 views left hand Severe first CMC degen and moderate radiocarpal degen Assessment/Plan: (G56.02) Carpal tunnel syndrome of left wrist (primary encounter diagnosis) New and/or prior imaging was reviewed with the pt Patient has classic carpal tunnel symptoms Reviewed his EMG which showed severe He has tried night splints which have not helped He like to have surgery rather than a steroid injection which I think is reasonable at this point with his significant symptoms I discussed with the patient that they have severe carpal tunnel syndrome. Thus the goal of the surgery is to prevent this from getting worse. I explained that there has been permanent irreversible damage done to the nerve and I will not be able to restore all of that function by doing a decompression. My hope is that their symptoms will get better, but I cannot guarantee that there will be a significant improvement from pre-op. The patient understood this and still wished to proceed with surgery. Consent signed Local and MAC I scheduled this postop for 17 days in [place] Non-operative and operative interventions were thoroughly discussed w/ the patient. After explaining the risks and benefits of each route, the patient elected to proceed w/ operative intervention. I explained the specific risks, benefits, and goals of the procedure. These risks include, but are not limited to: infection, wound healing problems, neurovascular injury, weakness, stiffness, scarring, Complex regional pain syndrome, and even loss of digit or limb. If hardware is used, there is a risk of hardware irritation or failure with possible need for revision. I stated the possibility of no improvement, worsening of the pre-op symptoms, and the need for further surgery. No guarantees were stated or implied. All the patient's questions were answered to their satisfaction. The patient expressed understanding of the risks, benefits, and possible outcomes. Medical Decision Making: Problems: Moderate: 1+ chronic illnesses with change Data: Unique test result(s) reviewed: 1 Unique test(s) ordered: 1 Risk: Moderate: Decision on minor surgery w/ risk factors Medical Decision Making Level: 4 - Moderate Stephan Yun MD Hand Surgery *The above reflects my independent exam and review. I saw and examined the patient myself personally. Parts of the HPI, ROS, exam and impression/plan may have been copied from my personal previous clinical note and remain pertinent. Current changes have been made and documented today. Other parts or date were deleted if not relevant for today. Plan as outlined.* *This note was produced using speech recognition software and may contain errors related to that system including but not limited to punctuation, spelling, grammar, gender, and words or phrases that may be inappropriate.* 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 [facility] c/b neuroma excision 04/2020 R wrist arthrodesis w/ Dr Lacy Taylor CTS EMG-L severe CTS, L C5/6 radic w/o denervation Years of left hand numbness and aching pain that is gotten worse Currently the radial digits are numb all the time PMH: PAST MEDICAL HISTORY Diagnosis Date Benign non-nodular prostatic hyperplasia with lower urinary tract symptoms 09/15/2015 Hypertension OAB (overactive bladder) Sleep apnea ALLERGIES Allergen Reactions Latex Rash Social History Tobacco Use Smoking status: Never Smokeless tobacco: Never Vaping Use Vaping status: Never Used Substance Use Topics Alcohol use: Yes Alcohol/week: 2.0 standard drinks of alcohol Types: 2 Glasses of Wine (5oz) per week Comment: few times a month Drug use: No Review of Systems: 12 point review of systems was performed and found to be non-contributory Exam: Left hand Skin intact, no obvious swelling Full finger flexion/extension, FPL/EPL intact Fingers wwp SILT radial, decree sensation radial digits Positive Tinel's at the wrist over the carpal tunnel, positive flexion/compression, mild thenar atrophy, APB 4+/5 strength Negative Tinel's at the wrist over Guyon's, negative Tinel's at the elbow, no 1st ESTIVEN atrophy, IO 5/5 strength 2PD not tested Imaging: XR 3 views left hand Severe first CMC degen and moderate radiocarpal degen Assessment/Plan: (G56.02) Carpal tunnel syndrome of left wrist (primary encounter diagnosis) New and/or prior imaging was reviewed with the pt Patient has classic carpal tunnel symptoms Reviewed his EMG which showed severe He has tried night splints which have not helped He like to have surgery rather than a steroid injection which I think is reasonable at this point with his significant symptoms I discussed with the patient that they have severe carpal tunnel syndrome. Thus the goal of the surgery is to prevent this from getting worse. I explained that there has been permanent irreversible damage done to the nerve and I will not be able to restore all of that function by doing a decompression. My hope is that their symptoms will get better, but I cannot guarantee that there will be a significant improvement from pre-op. The patient understood this and still wished to proceed with surgery. Consent signed Local and MAC I scheduled this postop for 17 days in [place] Non-operative and operative interventions were thoroughly discussed w/ the patient. After explaining the risks and benefits of each route, the patient elected to proceed w/ operative intervention. I explained the specific risks, benefits, and goals of the procedure. These risks include, but are not limited to: infection, wound healing problems, neurovascular injury, weakness, stiffness, scarring, Complex regional pain syndrome, and even loss of digit or limb. If hardware is used, there is a risk of hardware irritation or failure with possible need for revision. I stated the possibility of no improvement, worsening of the pre-op symptoms, and the need for further surgery. No guarantees were stated or implied. All the patient's questions were answered to their satisfaction. The patient expressed understanding of the risks, benefits, and possible outcomes. Medical Decision Making: Problems: Moderate: 1+ chronic illnesses with change Data: Unique test result(s) reviewed: 1 Unique test(s) ordered: 1 Risk: Moderate: Decision on minor surgery w/ risk factors Medical Decision Making Level: 4 - Moderate Stephan Yun MD Hand Surgery *The above reflects my independent exam and review. I saw and examined the patient myself personally. Parts of the HPI, ROS, exam and impression/plan may have been copied from my personal previous clinical note and remain pertinent. Current changes have been made and documented today. Other parts or date were deleted if not relevant for today. Plan as outlined.* *This note was produced using speech recognition software and may contain errors related to that system including but not limited to punctuation, spelling, grammar, gender, and words or phrases that may be inappropriate.* REVIEW OF SYSTEMS: GENERAL: Well developed, well nourished. No acute distress PAIN: Negative for pain, history of chronic pain or current treatment for chronic pain conditions CARDIOVASCULAR: Negative for chest pain, leg swelling and palpations. MSK: Negative for joint swelling SKIN: Negative for lesions, rash, itching, metal sensitivity NEURO: Numbness/tingling of extremties ENDOCRINE: Negative for diabetic associated symptoms HEMATOLOGY: Negative for excessive bleeding, clots, bleeding disorders. documented in this encounter [facility] 08-22-2024 Note HNO ID: [id number] Author: ZEN BURGESS Tech Service: ? 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 No acute distress PAIN: Negative for pain, history of chronic pain or current treatment for chronic pain conditions CARDIOVASCULAR: Negative for chest pain, leg swelling and palpations. MSK: Negative for joint swelling SKIN: Negative for lesions, rash, itching, metal sensitivity NEURO: Numbness/tingling of extremties ENDOCRINE: Negative for diabetic associated symptoms HEMATOLOGY: Negative for excessive bleeding, clots, bleeding disorders. [facility] 08-18-2024 Note HNO ID: [id number] Author: BRIANA GARNER MD Service: ? Author Type: Physician Type: Progress Notes Filed: 08/18/2024 09:44 Note Text: UNIVERSAL PROTOCOL / SAFETY CHECKLIST Procedure to be Performed: EMG Sign In: A Moment of CARE was completed. Personnel directly involved with the procedure wore the appropriate PPE (Personal Protective Equipment). Patient/Surrogate Stated/Verified: PATIENT VERIFIED(optional for EMERGENT procedures): Patient name, Date of , Relevant allergies, and The intended procedure Time Out Communication: Intended patient and procedure match the source documents. Correct side/site marked and visible. Sign Out: SIGN OUT (optional for EMERGENT procedures): Post-procedure follow-up management communicated and Plan of Care Visit completed when applicable. ROGERIO Goldman MD [facility] 08-18-2024 History of Presen t illness Narrative UNIVERSAL PROTOCOL / SAFETY CHECKLIST Procedure to be Performed: EMG Sign In: A Moment of CARE was completed. Personnel directly involved with the procedure wore the appropriate PPE (Personal Protective Equipment). Patient/Surrogate Stated/Verified: PATIENT VERIFIED(optional for EMERGENT procedures): Patient name, Date of , Relevant allergies, and The intended procedure Time Out Communication: Intended patient and procedure match the source documents. Correct side/site marked and visible. Sign Out: SIGN OUT (optional for EMERGENT procedures): Post-procedure follow-up management communicated and Plan of Care Visit completed when applicable. CLEVE Goldman.T Briana Garner MD documented in this encounter [facility] 05-21-2024 Telephone encounter Note Please contact patient and schedule an appointment with Dr. Trinh or Tianna Gutierres PA-C for Left Carpal Tunnel Syndrome. Referred by Dr. Mclean. Thank you! [facility] 05-21-2024 Miscellaneous Notes Please contact patient and schedule an appointment with Dr. Trinh or Tianna Gutierres PA-C for Left Carpal Tunnel Syndrome. Referred by Dr. Mclean. Thank you! documented in this encounter [facility] 04-11-2024 History of Presen t illness Narrative Associated Order(s): Large Joint Arthro/Inj: R subacromial bursa Post-Procedure Diagnose(s): Rotator cuff disorder, right Images from the original note were not included. SERVICE DATE: April 11, 2024 PCP: Giovanni Mclean, DO Subjective Patient ID: Marco Antonio is a 73 year old male. Chief Complaint: Patient presents with: right shoulder pain PAIN EVALUATION 04/11/2024 0949 Pain Level: 2 as high as 8 Pain Location: Shoulder-Right Description: Sharp;Aching electric shocks down to wrist Duration Amount of Time: -- ongoing Frequency: Continuous Intervention/Comfort measure: Medication HPI Marco Antonio states that he was carrying heavy doors up flights of stairs. No acute sharp pain but began developing significant discomfort the following day. He is having pain with raising the arm above elbow level, pain at night that keeps him awake. He takes [id number] NSAIDs with minimal improvement. 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, Right Wrist Mylene (Obstructive Sleep Apnea) Hypertension, Essential Osteoarthritis of Left Knee S/P Total Knee Arthroplasty, Left Obesity, Class I, Bmi 30-34.9 PAST MEDICAL HISTORY Diagnosis Date Benign non-nodular prostatic hyperplasia with lower urinary tract symptoms 09/15/2015 Hypertension OAB (overactive bladder) Sleep apnea PAST SURGICAL HISTORY Procedure Laterality Date APPENDECTOMY 1976 APPENDECTOMY HX ARTHROSCOPY KNEE DIAGNOSTIC W/WO SYNOVIAL BX SPX Left Arthroscopy, knee COLONOSCOPY 12/19/2021 repeat in 10 years JOINT REPLACEMENT HX NEUROPLASTY &/TRANSPOS MEDIAN NRV CARPAL TUNNE Right Carpal tunnel decomp PAST SURGICAL HISTORY OF neuroma right hand PAST SURGICAL HISTORY OF Left 10/15/2014 Arthroplasty left -[facility] PAST SURGICAL HISTORY OF Right 2000 wrist fusion PAST SURGICAL HISTORY OF uvulectomy PAST SURGICAL HISTORY OF Bilateral 08/2018 and 10/2014 CATRACHITA TONSILLECTOMY HX FAMILY HISTORY Problem Relation Age of Onset Stroke Mother other (Other) Father hip fracture/blood clot, was on AC prior to that for ? heart Arthritis Sister No Known Problems Brother Cancer Brother Social History Tobacco Use Smoking status: Never Smokeless tobacco: Never Vaping Use Vaping Use: Never used Substance Use Topics Alcohol use: Yes Alcohol/week: 2.0 standard drinks of alcohol Types: 2 Glasses of Wine (5oz) per week Comment: few times a month Drug use: No ALLERGIES Allergen Reactions Latex Rash MEDICATIONS: aspirin, enteric coated (ASPIRIN, ENTERIC COATED) 81 mg EC tablet Take 81 mg by mouth once daily. calcium carbonate/vitamin D3 (CALCIUM 500 + D ORAL) Take by mouth. multivitamin tablet Take 1 tablet by mouth once daily. acetaminophen (TYLENOL EXTRA STRENGTH) 500 mg tablet Take 2 tablets by mouth every 8 hours as needed for pain. docusate sodium (COLACE) 100 mg capsule Take 1 capsule by mouth twice daily. (Patient not taking: Reported on 12/08/2022) aspirin, enteric coated (ECOTRIN LOW STRENGTH) 81 mg EC tablet Take 1 tablet by mouth twice daily for 28 days. Cholecalciferol, Vitamin D3, (VITAMIN D) 25 mcg (1,000 unit) cap Take 1,000 Units by mouth once daily. (Patient not taking: Reported on 02/22/2022 ) Allergies, medications, past surgical history, family history and past medical history were reviewed per this encounter. Objective Ortho Exam 73-year-old male, no acute distress, pleasant and cooperative with examination. Evaluation of the right shoulder shows minimal point tenderness with palpation. Motion is restricted with abduction and external rotation at 90 degrees. Drop arm test reproduces pain. Rotator cuff strength is 4+ out of 5. There is a positive painful arc of motion between 90 and 120 degrees. Lemus test is positive. Assessment/Plan ASSESSMENT Diagnosis (M67.911) Rotator cuff disorder, right (primary encounter diagnosis) No orders found for this visit on 04/11/24. PLAN Large Joint Arthro/Inj: R subacromial bursa Informed Consent Consent Obtained: Verbal Mchenry Protocol A moment to CARE was completed. SIGN IN TIME OUT 04/11/2024 10:18 AM The procedure site was prepped in the usual sterile fashion. Site: R subacromial bursa Medications: 6 mg betamethasone acetate-betamethasone sodium phosphate 6 mg/mL Anesthetics: 4 mL lidocaine (PF) 10 mg/mL (1 %); 4 mL BUPivacaine (PF) 0.5 % (5 mg/mL) Outcome: Tolerated well, no immediate complications Post-injection instructions were reviewed with the patient and the patient voiced understanding of these instructions. FOLLOW-UP: No follow-ups on file. Begin range of motion exercises in 2 to 3 days followed by strengthening exercises in 1 week SIGNATURE: Giovanni Mclean DO PATIENT NAME: Shimon Amato DATE: April 11, 2024 TIME: 10:16 AM AMB ROOMING INTAKE FLOWSHEET DATA Risk Screening Do you have concerns about personal safety or safety in the home?: No Pain Pain Level: 2 (as high as 8) Pain Location: Shoulder-Right Description: Sharp, Aching (electric shocks down to wrist) Duration Amount of Time: (ongoing) Frequency: Continuous Intervention/Comfort measure: Medication documented in this encounter [facility] 04-11-2024 History of Presen t illness Narrative Radiology Service Progress Note PATIENT NAME: Shimon Amato DATE OF SERVICE: April 11, 2024 TIME: 9:41 AM PATIENT IDENTITY VERIFICATION COMPLETED USING TWO (2) IDENTIFIERS: Name and Date of confirmed by patient verbally. FALL SCREENING: Has the patient had 2 falls in the last year or 1 fall with injury or currently using an Ambulatory Assistive Device (Walker, Cane, Wheelchair, Crutches, etc.)? 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 Current Outpatient Medications on File Prior to Visit: acetaminophen (TYLENOL EXTRA STRENGTH) 500 mg tablet, Take 2 tablets by mouth every 8 hours as needed for pain. aspirin, enteric coated (ASPIRIN, ENTERIC COATED) 81 mg EC tablet, Take 81 mg by mouth once daily. calcium carbonate/vitamin D3 (CALCIUM 500 + D ORAL), Take by mouth. multivitamin tablet, Take 1 tablet by mouth once daily. docusate sodium (COLACE) 100 mg capsule, Take 1 capsule by mouth twice daily. (Patient not taking: Reported on 12/08/2022) aspirin, enteric coated (ECOTRIN LOW STRENGTH) 81 mg EC tablet, Take 1 tablet by mouth twice daily for 28 days. Cholecalciferol, Vitamin D3, (VITAMIN D) 25 mcg (1,000 unit) cap, Take 1,000 Units by mouth once daily. (Patient not taking: Reported on 02/22/2022) No current facility-administered medications on file prior to visit. PAST SURGICAL HISTORY Procedure Laterality Date APPENDECTOMY 1976 APPENDECTOMY HX ARTHROSCOPY KNEE DIAGNOSTIC W/WO SYNOVIAL BX SPX Left Arthroscopy, knee COLONOSCOPY 12/19/2021 repeat in 10 years JOINT REPLACEMENT HX NEUROPLASTY &/TRANSPOS MEDIAN NRV CARPAL TUNNE Right Carpal tunnel decomp PAST SURGICAL HISTORY OF neuroma right hand PAST SURGICAL HISTORY OF Left 10/15/2014 Arthroplasty left -[facility] PAST SURGICAL HISTORY OF Right 2000 wrist fusion PAST SURGICAL HISTORY OF uvulectomy PAST SURGICAL HISTORY OF Bilateral 08/2018 and 10/2014 CATRACHITA TONSILLECTOMY HX PAST MEDICAL HISTORY Diagnosis Date Benign non-nodular prostatic hyperplasia with lower urinary tract symptoms 09/15/2015 Hypertension OAB (overactive bladder) Sleep apnea Allergies: Latex ROS: No TIA's or unusual headaches, no dysphagia. No prolonged cough. No dyspnea or chest pain on exertion. No abdominal pain, change in bowel habits, black or bloody stools. No urinary tract symptoms. OBJECTIVE: Blood pressure 145/87, pulse 88, temperature 36.4 C (97.6 F), temperature source Oral, resp. rate 18, height 180.3 cm (5' 11), weight 101.1 kg (222 lb 12.8 oz), SpO2 96 %. HEAD AND NECK: Ears normal. Throat, oral cavity and tongue normal. Neck supple. No adenopathy or masses in the neck or supraclavicular regions. No carotid bruits. No thyromegaly. NEURO: Cranial nerves and fundi are normal. Neck supple. CHEST: Clear, good air entry, no wheezes, rhonci or rales. HEART: S1 and S2 normal, no murmurs, clicks, gallops or rubs. Regular rate and rhythm. No edema or JVD. SKIN: No rashes or suspicious skin lesions noted. ASSESSMENT: well adult exam hypertension hyperlipidemia PLAN: Reviewed lab results Total cholesterol and LDL are elevated at 237 and 177 respectively. HDL is 48 Discussed blood pressure regulation and lipid-lowering to reduce cardiovascular risk. Marco Antonio states that he would rather not start on medications at this time. He would like to try lifestyle modifications reduce sodium intake and closer monitoring of diet as well as increase cardiovascular fitness. PSA is 2.41-increased from 2.15 years ago. Recommend rechecking in 1 year Giovanni V Vinay, DO documented in this encounter [facility] 06-02-2022 History of Presen t illness Narrative Episode Visit Count: 17 Therapist That Will Oversee The Plan Of Care: Deborah Lima PT Start of Care Date: 04/05/22 Onset Date: 03/16/22 Plan of Care Certification Date: 05/03/22 Next Certification Due Date: 06/15/22 Patient Identified by Name and Date of : Yes REHABILITATION AND SPORTS THERAPY PHYSICAL THERAPY DISCONTINUANCE OF CARE PLAN OF CARE UPDATE: Assessment: Shimon Amato is discontinued from Physical Therapy services due to goal achievement and maximal benefit.. Patient was seen for 17 visits from Start of Care Date: 04/05/22 to 06/02/2022 and treatment included: Therapeutic exercise, Neuromuscular re-education, Gait training and Patient/Family/Caregiver Education. Goals for Episode of Care: created on 04/05/22 through 05/18/22 [place] in home exercise program./ achieved Patient will increase active ROM of left knee to 0-120 degrees to allow pt to to improve performance of ADLs and to improve gait mechanics / gait pattern ./ partially achieved progressing Patient will demonstrate increase in LE strength to 5/5 during manual muscle testing in order to improve function for prior functional tasks./ partially achieved progressing Normal gait/ partially achieved . Reciprocal stair negotiation./ partially achieved Patient Goals: Return to normal function SUBJECTIVE: Patient Reason for Visit: Pt reports that he rode his bike for about 2 miles last night after work. Notes that knee still gets swollen at times. Has home ex routine which he feels comfortable with. Pain: Pain Pain Level: 0 Pain Location: Knee - Left Frequency: Intermittent Post Treatment Pain Post Treatment Pain Level: 0 PROMIS Scales T-scores: mean of general population = 50. 5 points is clinically meaningfully difference Percentiles provide an indication of how the patient's score ranks in relation to the general population. Higher percentile rankings indicate better function/quality of life. 50th percentile is the average of the general population and indicates half of respondents had a worse score. T-scores: mean of general population = 50. 5 points is clinically meaningfully difference Percentiles provide an indication of how the patient's score ranks in relation to the general population. Higher percentile rankings indicate better function/quality of life. 50th percentile is the average of the general population and indicates half of respondents had a worse score. OBJECTIVE MEASURES WITH LEVEL OF FUNCTION: LE AROM L Knee Extension: 0 Degrees L Knee Flexion: 127 Degrees LE Strength R Hip Flexion (L2): 5/5 R Knee Extension (L3): 5/5 R Knee Flexion: 5/5 Functional Strength Functional Strength: no deficits noted Gait Gait Observation: no deviation TREATMENT: Therapeutic Exercise: 1: scifit stepper seat 14 7 min for ROM and discussed status and home exs. 2: heel slides with strap 5 sec hold 1x15 3: Physioball flexion and extension 5 second hold 1x15 4: passive knee extension supine pressure to tolerance 30 sec x3 5: Supine with left strap assist hamstring stretch 3x30 seconds 6: left quad set 5 second hold x 15 7: prone strap assist quad stretch 3x40 seconds 8: Forward step ups 2 blue 2x12 9: purple rep band TKE5 second hold 1x15 Skilled Intervention: Skilled judgment was provided in selection of appropriate interventions. Correct performance of therapeutic exercises was facilitated with verbal and visual cuing. Billing Therapeutic Exercise Treatment Minutes: 40 Total Treatment Time Minutes (timed/untimed): 40 Deborah Lima PT documented in this encounter [facility] 05-29-2022 History of Presen t illness Narrative Episode Visit Count: 16 Therapist That Will Oversee The Plan Of Care: Deborah Lima PT Start of Care Date: 04/05/22 Onset Date: 03/16/22 Plan of Care Certification Date: 05/03/22 Next Certification Due Date: 06/15/22 Patient Identified by Name and Date of : Yes REHABILITATION AND SPORTS THERAPY PHYSICAL THERAPY TREATMENT NOTE ASSESSMENT: Shimon Amato tolerated the session with no issues. He demonstrated improvements in everyday activities and tolerance for exercises.. The patient will continue to benefit from ongoing skilled physical therapy to progress toward set goals. PLAN FOR NEXT VISIT: try SLS left on level SUBJECTIVE: Patient Reason for Visit: Patient reports the kne is not bad today. He reports doing some steps at the [employer] and that created some stiffness. Pain: Pain Pain Level: 0 Pain Location: Knee - Left Frequency: Intermittent Post Treatment Pain Post Treatment Pain Level: 0 Post Treatment Symptoms: feels good OBJECTIVE MEASURES WITH LEVEL OF FUNCTION: LE AROM L Knee Extension: 2 Degrees L Knee Flexion: 127 Degrees Functional Performance Test Results 30 Second Chair Stand Test: 13 reps TREATMENT: Therapeutic Exercise: 1: Squats at // bars 2x10 2: heel slides with strap 5 sec hold 1x15 3: Physioball flexion and extension 5 second hold 1x15 4: passive knee extension supine pressure to tolerance 30 sec x3 5: Supine with left strap assist hamstring stretch 3x30 seconds 6: left quad set 5 second hold x 15 7: prone strap assist quad stretch 3x40 seconds 8: Forward step ups 2 blue 2x12 9: purple rep band TKE5 second hold 1x15 Skilled Intervention: Patient was educated in proper exercise technique and purpose for exercises. Skilled judgment was provided in selection of appropriate interventions. Correct performance of therapeutic exercises was facilitated with verbal cuing. Neuromuscular Re-Education: 1: BOSU forward aolt step ups 1x12 leading with each leg 2: BOSU lateral step up and over 1x12 each way 3: BOSU B stance on dome x 1 minute Skilled Intervention: Skilled judgment used to assess appropriate program for balance and coordination activity. Billing Therapeutic Exercise Treatment Minutes: 36 Neuromuscular Re-Education Treatment Minutes: 8 Total Treatment Time Minutes (timed/untimed): 44 Marsha Lance PTA/Deborah Lima PT documented in this encounter [facility] 05-25-2022 History of Presen t illness Narrative Episode Visit Count: 15 Therapist That Will Oversee The Plan Of Care: Deborah Lima PT Start of Care Date: 04/05/22 Onset Date: 03/16/22 Plan of Care Certification Date: 05/03/22 Next Certification Due Date: 06/15/22 Patient Identified by Name and Date of : Yes REHABILITATION AND SPORTS THERAPY PHYSICAL THERAPY TREATMENT NOTE ASSESSMENT: Shimon Amato tolerated the session with no issues. He demonstrated improvements in maintaining flexion and extension 2-127 degrees. Quad strength improving.. The patient will continue to benefit from ongoing skilled physical therapy to progress toward set goals. PLAN FOR NEXT VISIT: Add squats SUBJECTIVE: Patient Reason for Visit: Patient reports increase stiffness last evening after working a long day and elevated the leg and feels better this morning. Pain: Pain Pain Level: 0 Pain Location: Knee - Left Description: Stiffness Frequency: Continuous Post Treatment Pain Post Treatment Symptoms: feels looser with no pain OBJECTIVE MEASURES WITH LEVEL OF FUNCTION: LE AROM L Knee Extension: 1 Degrees L Knee Flexion: 127 Degrees TREATMENT: Therapeutic Exercise: 1: scifit stepper for knee ROM seat 14 resistiance 2.5 for 5 min. (subjective taken and discussed that it is normal to feel stiff at this time in recovery.) 2: heel slides with strap 5 sec hold 1x15 3: Physioball flexion and extension 5 second hold 1x15 4: passive knee extension supine pressure to tolerance 30 sec x3 5: long sitting gastroc stretch with strap and overpressure for knee extension 30 sec x3 6: left quad set 5 second hold x 15 7: prone strap assist quad stretch 3x30 seconds 8: Forward step ups blue and green step left 2x15 9: purple rep band TKE 3 second hold 2x15 Skilled Intervention: Patient was educated in proper exercise technique and purpose for exercises. Skilled judgment was provided in selection of appropriate interventions. Correct performance of therapeutic exercises was facilitated with verbal cuing. Neuromuscular Re-Education: 1: BOSU forward aolt step ups 1x12 leading with each leg 2: BOSU lateral step up and over 1x12 each way Skilled Intervention: Skilled judgment used to assess appropriate program for balance and coordination activity. Billing Therapeutic Exercise Treatment Minutes: 39 Neuromuscular Re-Education Treatment Minutes: 8 Total Treatment Time Minutes (timed/untimed): 47 ANNE-MARIE Chavez PT documented in this encounter [facility] 05-22-2022 History of Presen t illness Narrative Episode Visit Count: 14 Therapist That Will Oversee The Plan Of Care: Deborah Lima PT Start of Care Date: 04/05/22 Onset Date: 03/16/22 Plan of Care Certification Date: 05/03/22 Next Certification Due Date: 06/15/22 Patient Identified by Name and Date of : Yes REHABILITATION AND SPORTS THERAPY PHYSICAL THERAPY TREATMENT NOTE ASSESSMENT: Shimon Amato tolerated the session with no issues. He demonstrated improvements in AROM of left knee with no increase in pain.. The patient will continue to benefit from ongoing skilled physical therapy to progress toward set goals. PLAN FOR NEXT VISIT: progress uneven surface strengthening SUBJECTIVE: Patient Reason for Visit: Patient reports going on a 16 mile bike ride yesterday., He reports slight increase swelling which decreased by evening. Pain: Pain Pain Level: 0 Pain Location: Knee - Left Frequency: Continuous Post Treatment Pain Post Treatment Pain Level: No Change OBJECTIVE MEASURES WITH LEVEL OF FUNCTION: LE AROM L Knee Extension: 1 Degrees L Knee Flexion: 127 Degrees TREATMENT: Therapeutic Exercise: 1: scifit stepper for knee ROM seat 14 resistiance 2.5 for 5 min. (subjective taken) 2: heel slides with strap 5 sec hold 1x15 3: Physioball flexion and extension 5 second hold 1x15 4: passive knee extension supine pressure to tolerance 30 sec x3 5: Forward step ups blue and green step left 2x15 6: long sitting gastroc stretch with strap and overpressure for knee extension 30 sec x3 7: purple rep band TKE 3 second hold 2x15 8: left quad set 5 second hold x 15 9: prone strap assist quad stretch 3x30 seconds Skilled Intervention: Patient was educated in proper exercise technique and purpose for exercises. Skilled judgment was provided in selection of appropriate interventions. Correct performance of therapeutic exercises was facilitated with verbal cuing. Neuromuscular Re-Education: 1: BOSU forward aolt step ups 1x10 leading with each leg 2: BOSU lateral step up and over 1x10 [address] way Skilled Intervention: Skilled judgment used to assess appropriate program for balance and coordination activity. Billing Therapeutic Exercise Treatment Minutes: 40 Neuromuscular Re-Education Treatment Minutes: 5 Total Treatment Time Minutes (timed/untimed): 45 ANNE-MARIE hCavez PT documented in this encounter [facility] 05-17-2022 History of Presen t illness Narrative Episode Visit Count: 12 Therapist That Will Oversee The Plan Of Care: Deborah Lima PT Start of Care Date: 04/05/22 Onset Date: 03/16/22 Plan of Care Certification Date: 05/03/22 Next Certification Due Date: 06/15/22 Patient Identified by Name and Date of : Yes REHABILITATION AND SPORTS THERAPY PHYSICAL THERAPY TREATMENT NOTE ASSESSMENT: Shimon Amato tolerated the session with no issues. He demonstrated improvements in extension AROM today to 0 degrees. . The patient will continue to benefit from ongoing skilled physical therapy to progress toward set goals. PLAN FOR NEXT VISIT: TKE with blue or purple band SUBJECTIVE: Patient Reason for Visit: Paatient reports no left knee pain currently. He reports earlier in the day having some medial knee pain. Pain: Pain Pain Level: 0 Pain Location: Knee - Left Frequency: Continuous Post Treatment Pain Post Treatment Pain Level: No Change Post Treatment Symptoms: feels good with no pain. OBJECTIVE MEASURES WITH LEVEL OF FUNCTION: LE AROM L Knee Extension: 0 Degrees L Knee Flexion: 123 Degrees TREATMENT: Therapeutic Exercise: 1: scifit stepper for knee ROM seat 14 resistiance 2.5 for 5 min. (Subjective taken and discussed exercises) 2: Prone hamstring stretch with 4# weight x 4 minutes (foam roller over hamstring and posterior knee) 3: Physioball flexion and extension 5 second hold 1x15 4: long sitting left hamstring stretch x 30 sec overpressure above knee to tolerance x 4 5: gastroc stretch with strap in supine with overpressure for knee extension 30 sec x4 6: Strap assist heel slides 5 second hold x 15 7: Forward step ups blue and green step left 2x12 8: Forward step up left and down and over with right 2 blue steps back and forth x [address] Skilled Intervention: Patient was educated in proper exercise technique and purpose for exercises. Skilled judgment was provided in selection of appropriate interventions. Correct performance of therapeutic exercises was facilitated with verbal cuing. Billing Therapeutic Exercise Treatment Minutes: 43 Total Treatment Time Minutes (timed/untimed): 43 Marsha Lance PTA/Deborah Lima PT documented in this encounter [facility] 05-11-2022 History of Presen t illness Narrative Episode Visit Count: 11 Therapist That Will Oversee The Plan Of Care: Deborah Lima PT Start of Care Date: 04/05/22 Onset Date: 03/16/22 Plan of Care Certification Date: 05/03/22 Next Certification Due Date: 06/15/22 Patient Identified by Name and Date of : Yes REHABILITATION AND SPORTS THERAPY PHYSICAL THERAPY TREATMENT NOTE ASSESSMENT: Shimon Amato tolerated the session with no issues. He demonstrated improvements in end feel stretching for extension with good tolerance. . The patient will continue to benefit from ongoing skilled physical therapy to progress toward set goals. PLAN FOR NEXT VISIT: Consider use of hamstring curl for extension stretch ? SUBJECTIVE: Patient Reason for Visit: Pt reports just a little bit of extra soreness from stretching extension last session. States that he has had his assist with this as well . Today knee does not feel to bad Pain: Pain Pain Level: 0 Pain Location: Knee - Left Description: Stiffness Frequency: Continuous Post Treatment Pain Post Treatment Pain Level: No Change Post Treatment Pain Location: Knee - Left Post Treatment Pain Description: Sore OBJECTIVE MEASURES WITH LEVEL OF FUNCTION: LE AROM L Knee Extension: -2 Degrees L Knee Flexion: 123 Degrees TREATMENT: Therapeutic Exercise: 1: scifit stepper for knee ROM seat 14 for 5 min. (Subjective taken) 2: Passive left hamstring stretch x 3 minutes static hold 3: heel slides with board and strap 5 second hold 1x15 4: gastroc stretch with strap in supine with overpressure for knee extension 40 sec x4 5: quad sets 2x15 with wedge under heel 5 sec hold and 5# weight. 6: Physioball flexion and extension 1x15 7: long sitting left hamstring stretch x 30 sec overpressure above knee to tolerance 8: Forward step ups blue nd green step left 2x10 Skilled Intervention: Patient was educated in proper exercise technique and purpose for exercises. Skilled judgment was provided in selection of appropriate interventions. Correct performance of therapeutic exercises was facilitated with verbal and visual cuing. Billing Therapeutic Exercise Treatment Minutes: 40 Total Treatment Time Minutes (timed/untimed): 40 Deborah Lima PT documented in this encounter [facility] 05-08-2022 History of Presen t illness Narrative Episode Visit Count: 10 Therapist That Will Oversee The Plan Of Care: Deborah Lima PT Start of Care Date: 04/05/22 Onset Date: 03/16/22 Plan of Care Certification Date: 05/03/22 Next Certification Due Date: 06/15/22 Patient Identified by Name and Date of : Yes REHABILITATION AND SPORTS THERAPY PHYSICAL THERAPY TREATMENT NOTE ASSESSMENT: Shimon Amato tolerated the session with no issues. He demonstrated improvements in AROM left knee extension. . The patient will continue to benefit from ongoing skilled physical therapy to progress toward set goals. PLAN FOR NEXT VISIT: Progress quad strength and passive stretching of left hamstring SUBJECTIVE: Patient Reason for Visit: Patient reports he fell on Sunday carrying trash out for pickup. He reports landing on left shoulder, hip and knee. He reports some increase swelling and discomfort into the next day. He reports yesterday feeling better and has no pain today. Pain: Pain Pain Level: 0 Pain Location: Knee - Left Description: Stiffness Frequency: Continuous Post Treatment Pain Post Treatment Pain Level: No Change OBJECTIVE MEASURES WITH LEVEL OF FUNCTION: LE AROM L Knee Extension: -2 Degrees L Knee Flexion: 122 Degrees TREATMENT: Therapeutic Exercise: 1: scifit stepper for knee ROM seat 14 for 5 min. (Subjective taken) 2: Passive left hamstring stretch x 3 minutes static hold 3: heel slides with board and strap 5 second hold 1x15 4: gastroc stretch with strap in supine with overpressure for knee extension 40 sec x4 5: quad sets 1x15 with wedge under heel 5 sec hold and 5# weight. 6: Physioball flexion and extension 1x15 7: Passive left hamstring stretch x 3 minutes static hold 8: Forward step ups blue nd green step left 2x10 Skilled Intervention: Patient was educated in proper exercise technique and purpose for exercises. Skilled judgment was provided in selection of appropriate interventions. Correct performance of therapeutic exercises was facilitated with verbal cuing. Billing Therapeutic Exercise Treatment Minutes: 45 Total Treatment Time Minutes (timed/untimed): 45 Marsha Lance PTA/Deborah Lima PT documented in this encounter [facility] 05-04-2022 History of Presen t illness Narrative Episode Visit Count: 9 Therapist That Will Oversee The Plan Of Care: Deborah Lima PT Start of Care Date: 04/05/22 Onset Date: 03/16/22 Plan of Care Certification Date: 05/03/22 Next Certification Due Date: 06/15/22 Patient Identified by Name and Date of : Yes REHABILITATION AND SPORTS THERAPY PHYSICAL THERAPY PROGRESS REPORT PLAN OF CARE UPDATE: Assessment: Shimon Amato demonstrates significant improvement in ROM strength and physical activities . He hasprogressed toward goals. Patient continues to present with impairments in gait, joint mobility, range of motion and strength that interfere with . Current prognosis is . He will benefit from continued skilled therapy services to meet the updated goals for this plan of care as noted below. Goals for Episode of Care: created on 04/05/22 through 05/18/22 [place] in home exercise program./ achieved Patient will increase active ROM of left knee to 0-120 degrees to allow pt to to improve performance of ADLs and to improve gait mechanics / gait pattern ./ partially achieved progressing Patient will demonstrate increase in LE strength to 5/5 during manual muscle testing in order to improve function for prior functional tasks./ partially achieved progressing Normal gait/ partially achieved . Reciprocal stair negotiation./ partially achieved Patient Goals: Return to normal function Planned Interventions, Frequency, and Duration: 2x/week, 4 weeks Total Number of Visits Planned: 8 Patient to be seen for Therapeutic exercise (85964);Neuromuscular re-education ([id number]);Manual therapy ([id number]);Self-fci management ([id number]);Patient/Family/Caregiver Education;Gait Training ([id number]) PLAN FOR NEXT VISIT: Will use therapist assist extension in supine 2-3 times in session rather that patient assist SUBJECTIVE: Patient Reason for Visit: Pt reports that he rode his bike a little bit last night and worked a little on extension. Notes that he feels that therapy is beneficial. Pain: Pain Pain Level: 1 Pain Location: Knee - Left Description: Stiffness Frequency: Continuous Post Treatment Pain Post Treatment Pain Level: No Change Post Treatment Pain Location: Knee - Left PROMIS Scales T-scores: mean of general population = 50. 5 points is clinically meaningfully difference Percentiles provide an indication of how the patient's score ranks in relation to the general population. Higher percentile rankings indicate better function/quality of life. 50th percentile is the average of the general population and indicates half of respondents had a worse score. T-scores: mean of general population = 50. 5 points is clinically meaningfully difference Percentiles provide an indication of how the patient's score ranks in relation to the general population. Higher percentile rankings indicate better function/quality of life. 50th percentile is the average of the general population and indicates half of respondents had a worse score. OBJECTIVE MEASURES WITH LEVEL OF FUNCTION: Knee Observations L Knee Presents with: Incision L Incision: clear scar, heeling well. glue now gone LE AROM L Knee Extension: -3 Degrees (with assist) L Knee Flexion: 124 Degrees LE Flexibility L Hamstring Flexibility: moderate tightness LE Strength L Knee Extension (L3): 4/5 L Knee Flexion: 5/5 Gait Weight Bearing Status: FWB Gait: Independent Gait Deviations Left Lower Extremity: Heel strike during initial stance decreased;Knee flexion during stance increased TREATMENT: Therapeutic Exercise: 1: scifit stepper for knee ROM seat 14 for 5 min. (Subjective taken and discussed progress) 2: Supine with right leg on wedge bolster 3# weight x 4 monutes 3: heel slides with board and strap 5 second hold 1x15 4: gastroc stretch with strap in supine with overpressure for knee extension 30 sec x4 5: quad sets 1x15 with wedge under heel 5 sec hold and 5# weight. 6: Physioball flexion and extension 1x15 7: purple rep band TKE 5 sec hold 2x15 8: 2 green step left forward step ups 2x15 9: Lrft long sitting hamstring stretch left with hand assist pushing down 3x30 seconds. Skilled Intervention: Skilled judgment was provided in selection of appropriate interventions. Correct performance of therapeutic exercises was facilitated with verbal and visual cuing. Home Exercise Program Assigned: 1: continue to encourage stretching in extension Billing Therapeutic Exercise Treatment Minutes: 45 Total Treatment Time Minutes (timed/untimed): 45 Deborah Lima PT documented in this encounter [facility] 05-01-2022 History of Presen t illness Narrative Episode Visit Count: 8 Therapist That Will Oversee The Plan Of Care: Deborah Lima PT Start of Care Date: 04/05/22 Onset Date: 03/16/22 Plan of Care Certification Date: 04/06/22 Next Certification Due Date: 05/18/22 Patient Identified by Name and Date of : Yes REHABILITATION AND SPORTS THERAPY PHYSICAL THERAPY TREATMENT NOTE ASSESSMENT: Shimon Amato tolerated the session with expected muscle soreness. He demonstrated difficulty with full left knee extension and improved gait and increased AROM left knee extension.. The patient will continue to benefit from ongoing skilled physical therapy for reassessment by supervising therapist. PLAN FOR NEXT VISIT: POC update SUBJECTIVE: Patient Reason for Visit: Patient reports his knee feels stiff today. He reports he was able to ride his bicycle for a short distance outside yesterday. Pain: Pain Pain Level: 1 Pain Location: Knee - Left Description: Stiffness Frequency: Continuous Post Treatment Pain Post Treatment Pain Level: 1 Post Treatment Pain Location: Knee - Left Post Treatment Symptoms: looser and better OBJECTIVE MEASURES WITH LEVEL OF FUNCTION: LE AROM L Knee Extension: -3 Degrees L Knee Flexion: 121 Degrees TREATMENT: Therapeutic Exercise: 1: scifit stepper for knee ROM seat 14 for 5 min. (Subjective taken and discussed progress) 2: Supine with right leg on wedge bolster 3# weight x 4 monutes 3: heel slides with board and strap 5 second hold 1x15 and 1x10 4: gastroc stretch with strap in supine with overpressure for knee extension 30 sec x4 5: quad sets 1x15 with wedge under heel 5 sec hold and 3# weight. 6: Physioball flexion and extension 1x10 7: purple rep band TKE 5 sec hold 2x15 8: 2 green step left forward step ups 2x15 9: Lrft long sitting hamstring stretch left with hand assist pushing down 3x30 seconds. Skilled Intervention: Patient was educated in proper exercise technique and purpose for exercises. Skilled judgment was provided in selection of appropriate interventions. Correct performance of therapeutic exercises was facilitated with verbal and visual cuing. Billing Therapeutic Exercise Treatment Minutes: 47 Total Treatment Time Minutes (timed/untimed): 47 Marsha Lance PTA/Deborah Lima PT documented in this encounter [facility] 04-26-2022 History of Presen t illness Narrative Episode Visit Count: 7 Therapist That Will Oversee The Plan Of Care: Deborah Lima PT Start of Care Date: 04/05/22 Onset Date: 03/16/22 Plan of Care Certification Date: 04/06/22 Next Certification Due Date: 05/18/22 Patient Identified by Name and Date of : Yes REHABILITATION AND SPORTS THERAPY PHYSICAL THERAPY TREATMENT NOTE ASSESSMENT: Shimon Amato tolerated the session with no issues. He demonstrated difficulty with relaxation of hamstrings with prone lying extension stretch. Will work on weighted extension stretch in supine instead . The patient will continue to benefit from ongoing skilled physical therapy to progress toward set goals. PLAN FOR NEXT VISIT: increase weight to proximal knee supine with foam wedge under ankle for extension stretch SUBJECTIVE: Patient Reason for Visit: Pt notes that his knee really hurt after painting for 5 hours yesterday but better after ice and rest. Today it just feels stiff Pain: Pain Pain Level: 1 Pain Location: Knee - Left Description: Stiffness Frequency: Continuous Post Treatment Pain Post Treatment Pain Level: No Change Post Treatment Pain Location: Knee - Left OBJECTIVE MEASURES WITH LEVEL OF FUNCTION: LE AROM L Knee Extension: -3 Degrees L Knee Flexion: 124 Degrees TREATMENT: Therapeutic Exercise: 1: scifit stepper for knee ROM seat 14 for 5 min. (Subjective taken and discussed progress) 2: prone lying stretch for extension with 2 # with foam roller to hamstrings x4 min. 3: heel slides with board and strap 5 second hold 1x15 and 1x10 4: gastroc stretch with strap in supine with overpressure for knee extension 30 sec x3 5: quad sets 1x15 with wedge under heel 5 sec hold and 2# weight. 6: Physioball flexion and extension 1x10 7: purple rep band TKE 5 sec hold 2x15 8: 2 green step left forward step ups 2x15 Skilled Intervention: Patient was educated in proper exercise technique and purpose for exercises. Skilled judgment was provided in selection of appropriate interventions. Correct performance of therapeutic exercises was facilitated with verbal and visual cuing. Billing Therapeutic Exercise Treatment Minutes: 45 Total Treatment Time Minutes (timed/untimed): 45 Deborah Lima PT documented in this encounter [facility] 04-17-2022 History of Presen t illness Narrative Episode Visit Count: 4 Therapist That Will Oversee The Plan Of Care: Deborah Lima PT Start of Care Date: 04/05/22 Onset Date: 03/16/22 Plan of Care Certification Date: 04/06/22 Next Certification Due Date: 05/18/22 Patient Identified by Name and Date of : Yes REHABILITATION AND SPORTS THERAPY PHYSICAL THERAPY TREATMENT NOTE ASSESSMENT: Shimon Amato tolerated the session with no issues. He demonstrated improvements in flexion ROM. Still lacks few degrees of extension. The patient will continue to benefit from ongoing skilled physical therapy to progress toward set goals. PLAN FOR NEXT VISIT: continue to work on extension SUBJECTIVE: Patient Reason for Visit: Pt reports that he continues to use ice and work on exs. Feels his leg is getting stronger Pain: Pain Pain Level: (not quantified) Pain Location: Knee - Left Description: Stiffness Frequency: Continuous Post Treatment Pain Post Treatment Pain Level: No Change Post Treatment Pain Location: Knee - Left OBJECTIVE MEASURES WITH LEVEL OF FUNCTION: LE AROM L Knee Extension: -3 Degrees (with hand overpressure) L Knee Flexion: 122 Degrees TREATMENT: Therapeutic Exercise: 1: quad sets 1x15 with wedge under heel 5 sec hold 2: prone lying stretch for extension with 2 # with foam roller to hamstrings 1 min x4 min. 4: heel slides with board and strap 2x15 5: purple rep band TKE 5 sec hold 2x15 6: scifit stepper for knee ROM seat 14 for 5 min. 7: seated hamstring stretch with hand proximal knee for overpressure 30 sec x3 8: blue step ups no hands 2x12 9: gastroc stretch with strap in long sitting with overpressure for knee extension 30 sec x3 Skilled Intervention: Patient was educated in proper exercise technique and purpose for exercises. Skilled judgment was provided in selection of appropriate interventions. Correct performance of therapeutic exercises was facilitated with verbal and visual cuing. Billing Therapeutic Exercise Treatment Minutes: 40 Total Treatment Time Minutes (timed/untimed): 40 Deborah Lima PT documented in this encounter [facility] 04-13-2022 History of Presen t illness Narrative Episode Visit Count: 3 Therapist That Will Oversee The Plan Of Care: Deborah Lima PT Start of Care Date: 04/05/22 Onset Date: 03/16/22 Plan of Care Certification Date: 04/06/22 Next Certification Due Date: 05/18/22 Patient Identified by Name and Date of : Yes REHABILITATION AND SPORTS THERAPY PHYSICAL THERAPY TREATMENT NOTE ASSESSMENT: Shimon Amato tolerated the session with expected muscle soreness. He demonstrated improvements in knee flexion and extension ROM. The patient will continue to benefit from ongoing skilled physical therapy to progress toward set goals. PLAN FOR NEXT VISIT: continue work on gait, strength and ROM especially extension SUBJECTIVE: Patient Reason for Visit: Pt notes that he still has stiffness. Sleeping a couple hours at a time before needing to switch positions . Pain: Pain Pain Level: 1 Pain Location: Knee - Left Description: Stiffness Frequency: Continuous Post Treatment Pain Post Treatment Pain Level: Better Post Treatment Symptoms: feels great OBJECTIVE MEASURES WITH LEVEL OF FUNCTION: LE AROM L Knee Extension: -3 Degrees (with hand assist long sitting) L Knee Flexion: 120 Degrees TREATMENT: Therapeutic Exercise: 1: quad sets 1x15 with wedge under heel 5 sec hold 2: prone lying stretch for extension with 2 # with foam roller to hamstrings 1 min x3 min. 4: heel slides with board and strap 1x15 5: purple rep band TKE 5 sec hold 2x15 6: scifit stepper for knee ROM seat 14 for 5 min. 7: seated hamstring stretch with hand proximal knee for overpressure 30 sec x3 8: blue step ups no hands 2x10 9: gastroc stretch with strap in long sitting with overpressure for knee extension 30 sec x3 Skilled Intervention: Patient was educated in proper exercise technique and purpose for exercises. Skilled judgment was provided in selection of appropriate interventions. Correct performance of therapeutic exercises was facilitated with verbal and visual cuing. Billing Therapeutic Exercise Treatment Minutes: 39 Total Treatment Time Minutes (timed/untimed): 39 Deborah Lima PT documented in this encounter [facility] 04-07-2022 History of Presen t illness Narrative Images from the original note were not included. Ortho Knee Follow Up Note Narrative Referring Provider: SELF PCP: Giovanni Mclean, DO IMPRESSION/PLAN: 71 year old s/p EMETERIO Left Total Knee Replacement completed on 03/16/2022. Orthopaedic Surgeries 03/16/2022 (3w, 1d) ROBOTIC ASSISTED TOTAL KNEE ARTHROPLASTY (Left) Luis Holliday MD; Jensen Elizabeth MD - Posted 04/30/2020 (1yr, 11mo) FUSION WRIST WITH AUTOGRAFT (Right) Sam Houes MD; Joel Lakhani MD (Fel); Stephan Mendez MD - Posted 08/13/2018 (3yr) ARTHROPLASTY HIP (Right) Parminder Crouch MD; Solomon (Jayne Dietrich - Posted 10/15/2014 (7yr) ARTHROPLASTY HIP (Left) Parminder Crouch MD; Fransisco Jain MD, PhD - Posted PAIN EVALUATION 04/07/2022 1439 Pain Level: 2 Pain Location: Knee-Left Description: Aching;Sore Duration Units: Weeks Intervention/Comfort measure: Reposition;Relaxation;Cold;Medic ation IMPRESSION: Excellent early outcome PLAN: No new treatment indicated: Routine follow-up with x-rays. Patient Reassurance: Normal post-operative course discussed with patient. Follow up 3 months No X-Rays Needed Shimon Amato presents today for a a routine 1st post-op visit ACTIVE PROBLEM LIST Degeneration of Intervertebral Disc, Site Unspecified Pain in Joint, Pelvic Region and Thigh Urinary Incontinence Benign Non-Nodular Prostatic Hyperplasia With Lower Urinary Tract Symptoms Primary Osteoarthritis of Right Hip Hip Osteoarthritis Status Post Bilateral Hip Replacements Post-Traumatic Osteoarthritis, Right Wrist Mylene (Obstructive Sleep Apnea) Hypertension, Essential Osteoarthritis of Left Knee S/P Total Knee Arthroplasty, Left Obesity, Class I, Bmi 30-34.9 Status Post Left Knee Replacement Status post op: BMI: There is no height or weight on file to calculate BMI. Post-operative recovery was complicated by uneventful/none. Readmission(s) since surgery (90 days post)? No ED Visits & Hospitalizations - Last 180 days 03/16/22 Luis Holliday MD, LU5D Status post total knee replacement, left, Admission (Discharged) Patient rates their condition as improving. Post Op discharge patient location: in home. Functional Assessment is as follows: is ready to begin outpatient PT. Functional difficulties: None. Pain Medication: Narcotic Current Opioids Analgesic Opioid Agonists Start End oxyCODONE IR (ROXICODONE) 5 mg immediate release tablet 03/28/2022 Sig: Take 1 or 2 tablets by mouth every 6-8 hours as needed for pain PATIENT IS SP MAJOR JOINT REPLACEMENT Earliest Fill Date: 03/28/2022 Currently Ambulating with: crutches Physical Therapy Data 04/05/2022 04/07/2022 Surgical procedure date 03/16/2022 - Weight bearing status WBAT WBAT AROM L knee extension -13 - AROM L knee flexion 109 115 Therapist that will oversee plan of care Deborah Lima PT Prognosis Excellent - Frequency 2x/week - Duration 4 weeks - Total number of visits 8 - Planned treatment interventions Therapeutic exercise (52222);Neuromuscular re-education (57451);Manual therapy (73926);Self-fci management (61323);Gait Training (62322);Patient/Family/Caregiver Education - Plan for next visit trial of prone lying for knee extension and supine extension with wedge under heel and weight proximal knee continue with stretching for both flexion and extension = EXAM: POST OP KNEE = Left Post-Operative Knee Ambulates with a: limp favoring the left. SKIN: Appropriate postop appearance. Range of motion is lacking a few degrees secondary to tight hamstrings degrees in extension and 95 degrees of flexion. Extension La degrees Pain with ROM:Yes There is Moderate effusion. Mal-alignment: No Tender to the palpation of Medial femoral condyle and Medial joint line Neurovascular Status: Sensation Intact and Moves foot and ankle up & down Stability:Anterior/Posterior- Yes, stable and Varus/Valgus- Yes, stable Quad strength: improving Imagin. There is no evidence of loosening. Provider: Castillo Allen PA-C Completed by: Castillo Allen PA-C documented in this encounter [facility] 04-07-2022 Instructions Timothy Graham RN - 04/07/2022 2:40 PM EDT Images from the original note were not included. Please focus on gaining full extension of your leg as soon as possible. There is a finite window of time after your procedure / injury to regain full joint mobility in your knee. This window closes at 6-8 weeks post operatively. I do not recommend sitting in a recliner as that will promote bending of the knee. Your knee needs to achieve full extension/ straight leg as soon as possible. Please focus on supporting your leg at the heel/ calf. Do Not place any pillows/ support under your thigh. The best way to decrease knee pain is to decrease knee swelling. This is accomplished by Elevating your knee. Elevation is only achieved when your knee is Higher than your heart. Again, when elevating your knee, place all support/ pillows under your calf/ heel. At times it may be difficult / impractical to lay down and elevate your knee. The best alternative is to sit in a chair and place your heel in a chair across from you. While this is not elevating your knee, it does promote extension/ straightening your leg. Please do not hesitate to reach out to your surgeon's office or your physical therapist for assistance and/ or clarification. documented in this encounter [facility] 04-07-2022 History of Presen t illness Narrative Radiology Service Progress Note PATIENT NAME: Shimon Amato DATE OF SERVICE: April 07, 2022 TIME: 2:07 PM PATIENT IDENTITY VERIFICATION COMPLETED USING TWO (2) IDENTIFIERS: Name and Date of confirmed by patient verbally and Name and Date of confirmed by identification band. FALL SCREENING: Has the patient had 2 falls in the last year or 1 fall with injury or currently using an Ambulatory Assistive Device (Walker, Cane, Wheelchair, Crutches, etc.)? No PATIENT GENDER DATA: Male PATIENT RELEVANT IMPLANT DATA REVIEWED: Not Applicable RADIOLOGY DEPARTMENT: General X-ray: Exam(s) Completed: Lower Extremity X-Ray(s): Knee, AP / Lat / Merchant Left and Wt. Bearing PERIPHERAL IV DATA: Not applicable SIGNED BY: CHARISSE CHASE RT(R) documented in this encounter [facility] 04-07-2022 History of Presen t illness Narrative Episode Visit Count: 2 Therapist That Will Oversee The Plan Of Care: Deborah Lima PT Start of Care Date: 04/05/22 Onset Date: 03/16/22 Plan of Care Certification Date: 04/06/22 Next Certification Due Date: 05/18/22 Patient Identified by Name and Date of : Yes REHABILITATION AND SPORTS THERAPY PHYSICAL THERAPY TREATMENT NOTE ASSESSMENT: Shimon Amato tolerated the session with no issues. He demonstrated improvements in flexion and extension stretching. The patient will continue to benefit from ongoing skilled physical therapy to progress toward set goals. PLAN FOR NEXT VISIT: continue with stretching for both flexion and extension SUBJECTIVE: Patient Reason for Visit: Pt notes that he went up 14 steps yesterday reciprocally . Has been working on extension stretch. Pain: Pain Pain Level: 1 Pain Location: Knee - Left Description: Sore Frequency: Continuous Post Treatment Pain Post Treatment Pain Level: No Change OBJECTIVE MEASURES WITH LEVEL OF FUNCTION: LE AROM L Knee Flexion: 115 Degrees (with strap) TREATMENT: Therapeutic Exercise: 1: quad sets 1x10 with wedge under heel 5 sec hold 2: prone lying stretch for extension with foam roller to hamstrings x3 min. 3: heel slides with board and towel 1x10 4: heel slides with board and strap 1x15 5: blue rep band TKE 5 sec hold 2x10 6: scifit stepper for knee ROM seat 14 for 5 min. 7: seated hamstring stretch with hand proximal knee for overpressure 30 sec x3 8: green step ups no hands 2x10 9: gastroc stretch with strap in long sitting with overpressure for knee extension 30 sec x3 Skilled Intervention: Patient was educated in proper exercise technique and purpose for exercises. Reviewed and educated patient on additions/changes for home exercise program . Skilled judgment was provided in selection of appropriate interventions. Correct performance of therapeutic exercises was facilitated with verbal and visual cuing. Gait Trainin: 40'x2 with cues for proper form Skilled Intervention: Patient was provided supervision during pre-gait/gait training to prevent falls and insure safety. Facilitated proper gait cycle with the use of verbal and visual cues for correction of gait deviations identified in the objective section above. Home Exercise Program Assigned: 1: try prone lying as able Billing Therapeutic Exercise Treatment Minutes: 40 Gait Training Treatment Minutes: 5 Total Treatment Time Minutes (timed/untimed): 45 Deborah Lima PT documented in this encounter [facility] 04-06-2022 History of Presen t illness Narrative Episode Visit Count: 1 Therapist That Will Oversee The Plan Of Care: Deborah Lima PT Start of Care Date: 04/05/22 Onset Date: 03/16/22 Plan of Care Certification Date: 04/06/22 Next Certification Due Date: 05/18/22 Patient Identified by Name and Date of : Yes REHABILITATION AND SPORTS THERAPY PHYSICAL THERAPY EVALUATION PLAN OF CARE: Assessment: Shimon Amato presents with diagnosis of s/p left TKA that interferes with walking in the community;stair negotiation;physical activities;recreational activities . He presents with impairments in gait, independence in exercise, overall function, range of motion and strength . . Prognosis for therapy is Excellent due to: current objective clinical presentation . ROM did improve by end of session He will benefit from skilled therapy services to meet the goals established for this plan of care as noted below. Goals for Episode of Care: created on 04/05/22 through 05/18/22 [place] in home exercise program. Patient will increase active ROM of left knee to 0-120 degrees to allow pt to to improve performance of ADLs and to improve gait mechanics / gait pattern . Patient will demonstrate increase in LE strength to 5/5 during manual muscle testing in order to improve function for prior functional tasks. Normal gait. Reciprocal stair negotiation. Patient Goals: Return to normal function Planned Interventions, Frequency, and Duration: Current Frequency: 2x/week Duration: 4 weeks Total Number of Visits Planned: 8 Planned Treatment Interventions: Therapeutic exercise (99839);Neuromuscular re-education (48143);Manual therapy (28959);Self-fci management (95956);Gait Training (03460);Patient/Family/Caregiver Education PLAN FOR NEXT VISIT: trial of prone lying for knee extension and supine extension with wedge under heel and weight proximal knee Patient demonstrates good understanding of plan of care and treatment. The above goals and plan of care were discussed and agreed upon by patient/family. SUBJECTIVE: Shimon Amato is a 71 year old male seen today for Pt notes that he varies 2 and one crutch , used walker for 3 days. Had home therapy until . Pain usually at low level . 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 5 points is clinically meaningfully difference Percentiles provide an indication of how the patient's score ranks in relation to the general population. Higher percentile rankings indicate better function/quality of life. 50th percentile is the average of the general population and indicates half of respondents had a worse score. T-scores: mean of general population = 50. 5 points is clinically meaningfully difference Percentiles provide an indication of how the patient's score ranks in relation to the general population. Higher percentile rankings indicate better function/quality of life. 50th percentile is the average of the general population and indicates half of respondents had a worse score. OBJECTIVE MEASURES WITH LEVEL OF FUNCTION: Knee Observations L Knee Presents with: Incision;Swelling L Swelling: generalized as expected L Incision: healing incision with glue remnants LE AROM L Knee Extension: -13 Degrees (supine) L Knee Flexion: 109 Degrees LE PROM L Knee Flexion: 113 Degrees LE Flexibility Flexibility: Hamstring Flexibility L Hamstring Flexibility: moderate tightness LE Strength Trunk Strength: 4+/5 R LE Strength: 5/5 L Hip Flexion (L2): 4/5 L Knee Extension (L3): 3/5 L Knee Flexion: 4/5 L Ankle Dorsiflexion (L4): 5/5 Functional Strength Functional Strength: difficulty with stairs Gait Weight Bearing Status: WBAT Gait: Independent Gait Device: Crutches (one) Gait Deviations: Left Lower Extremity Gait Deviations Left Lower Extremity: Heel strike during initial stance decreased;Knee flexion during stance increased;Lacks full knee extension during terminal swing;Stance time decreased;Push off during terminal stance decreased Education: Education Learning Preferences: Demonstration;Explanation;Perfor adryan;Printed Materials Barriers: None Learning/educational needs: Home exercise program;Plan of Care Education Provided: Yes, see treatment interventions for education provided Education Provided To: Patient Education Mode/Type: Demonstration;Explanation/Discus louis;Literature/Printed Materials;Performance Response to Education/Teach Back: States/Identifies;Return Demonstration TREATMENT: PT Treatment Interventions: Therapeutic Exercise;Gait Training Evaluation Therapeutic Exercise: 1: quad sets 1x10 2: SLR 1x10 3: heel slides with board and towel 1x10 4: heel slides with board and strap 1x10 6: scifit stepper for knee ROM seat 14 for 4 min. 7: seated hamstring stretch with hand proximal knee for overpressure Skilled Intervention: Patient was educated in proper exercise technique and purpose for exercises. Reviewed and educated patient on additions/changes for home exercise program . Skilled judgment was provided in selection of appropriate interventions. Provided written instruction for home exercise program to facilitate proper performance and compliance. Correct performance of therapeutic exercises was facilitated with verbal and visual cuing. Patient education as noted. Gait Trainin: on level surface with one crutch emphasis on heel toe pattern, Demonstration and verbal cues provided Skilled Intervention: Patient was provided supervision during pre-gait/gait training to prevent falls and insure safety. Facilitated proper gait cycle with the use of verbal and visual cues for correction of gait deviations identified in the objective section above. Home Exercise Program Assigned: 1: add hamstring stretch Billing * Evaluation Low Complexity: 1 Unit Therapeutic Exercise Treatment Minutes: 25 Gait Training Treatment Minutes: 5 Total Treatment Time Minutes (timed/untimed): 45 Deborah Lima PT documented in this encounter [facility] 04-05-2022 History of Past i llness Narrative Problem Noted Date Resolved Date Status post left knee replacement 04/05/2022 06/02/2022 documented as of this encounter (statuses as of 06/02/2022) [facility]05-25[facility] History of Past illness Narrative* Problem Noted Date Diagnosed Date Resolved Date Status post left knee replacement 04/05/2022 06/02/2022 documented as of this encounter (statuses as of 09/15/2023) [facility]05-25[facility] History of Past illness Narrative* Problem Noted Date Diagnosed Date Resolved Date Status post left knee replacement 04/05/2022 06/02/2022 documented as of this encounter (statuses as of 09/26/2023) [facility] History of Past illness Narrative* Problem Noted Date Diagnosed Date Resolved Date Status post left knee replacement 04/05/2022 06/02/2022 documented as of this encounter (statuses as of 10/11/2023) [facility]05[facility] Miscellaneous Notes* Telephone Encounter - Avis Milton, PT - 04/03/2022 4:57 PM EDT D/c home PT 04/03 Goals met Starts OP PT 04/05 [facility] Miscellaneous Notes* PT DISCHARGE - Avis Milton, PT - 04/03/2022 9:01 AM EDT SITUATION: spouse present during today's visit. patient reports the following since the last homecare visit: medications/allergies--no changes, no falls patient reports swelling is better and knee isfeeling better BACKGROUND: Diagnoses (reason for Home Care): LTKR Weight Bearing/Precaution Changes: no changes ASSESSMENT: Focus of visit: reassessment /discharge Physical therapy discharged: goals achieved. Functional performance at discharge - bed mobility independent, transfers independent, ambulation independent and stairs independent. Plan of care, goals, and discharge reviewed and agreed upon with patient and/or caregiver. RECOMMENDATION: Patient discharged from home health services. Instructions to include:begin outpatient therapy on 04/05/22 See intervention summary for intervention/education details. [facility] Miscellaneous Notes* PT ROUTINE/REASSESSMENT/RECERT/CASE MGMT - Laly Stark PTA - 03/31/2022 10:20 AM EDT SITUATION: spouse present during today's visit. patient reports the following since the last homecare visit: medications/allergies--no changes, no falls patient reports swelling is better and knee is feeling better BACKGROUND: Diagnoses (reason for Home Care): LTKR Weight Bearing/Precaution Changes: no changes ASSESSMENT: Focus of visit progression of HEP, ROM and gait training. Prep for DC Plan of care, goals, and visit frequency reviewed and agreed upon with patient and/or caregiver. Current Discharge Plan: outpatient rehab Anticipate discharge by 04/03/22 RECOMMENDATION: Next visit to focus on PT to see for DC See intervention summary for intervention/education details. [facility] Miscellaneous Notes* PT ROUTINE/REASSESSMENT/RECERT/CASE MGMT - Laly Stark PTA - 03/28/2022 9:01 AM EDT SITUATION: daughter present during today's visit. patient reports the following since the last homecare visit:medications/allergies--no changes, no fall. patient reports he had increased swelling over the wekend and knee is pretty stiff. BACKGROUND: Diagnoses (reason for Home Care): LTKR Weight Bearing/Precaution Changes: no changes ASSESSMENT: Focus of visit ROM, gait training with 1 crutch and progression of HEP including luma standing exercises scheduled OP PT to begin 04/05/22 Plan of care, goals, and visit frequency reviewed and agreed upon with patient and/or caregiver. Current Discharge Plan: outpatient rehab Anticipate discharge by 04/03/22 RECOMMENDATION: Next visit to focus on add mini sits See intervention summary for intervention/education details. [facility] Miscellaneous Notes* PT ROUTINE/REASSESSMENT/RECERT/CASE MGMT - Laly Lincoln, CELL CHANGER - 03/23/2022 8:58 AM EDT SITUATION: spouse present during today's visit. patient reports the following since the last homecare visit: medications/allergies--no changes, no fall. patient reports he did not sleep well last night because of knee. Feeling better this am. . BACKGROUND: Diagnoses (reason for Home Care): LTKA Weight Bearing/Precaution Changes: no changes ASSESSMENT: Focus of visit bandage removal. no concerns with incision healing. Plan of care, goals, and visit frequency reviewed and agreed upon with patient and/or caregiver. Current Discharge Plan: outpatient rehab Anticipate discharge by 04/03/22 RECOMMENDATION: Next visit to focus on 1 crutch training including steps to exit home See intervention summary for intervention/education details. documented in this encounterAd[facility] Miscellaneous Notes* PT ROUTINE/REASSESSMENT/RECERT/CASE [facility] - Laly Stark, CELL CHANGER - 03/22/2022 12:35 PM EDT SITUATION: spouse present during today's visit. patient reports the following since the last homecare visit: medications/allergies--no changes, no fall. patient reports he did not sleep well last night. BACKGROUND: Diagnoses (reason for Home Care): L TKA Weight Bearing/Precaution Changes: no changes ASSESSMENT: Focus of visit ROM, Strength exercises and gait training Plan of care, goals, and visit frequency reviewed and agreed upon with patient and/or caregiver. Current Discharge Plan: outpatient rehab Anticipate discharge by 04/08/22 RECOMMENDATION: Next visit to focus on bandage removal See intervention summary for intervention/education details. documented in this [facility]Ad[facility] Miscellaneous Notes* PT ROUTINE/REASSESSMENT/RECERT/CASE [facility] - Avis Milton, PT - 03/20/2022 3:01 PM EDT SITUATION: spouse present during today's visit. patient reports he is tired and sore following L TKA. BACKGROUND: Diagnoses (reason for Home Care): L TKA Past Medical History: Degeneration of Intervertebral Disc, Site Unspecified Pain in Joint, Pelvic Region and Thigh Urinary Incontinence Benign Non-Nodular Prostatic Hyperplasia With Lower Urinary Tract Symptoms Primary Osteoarthritis of Right Hip Hip Osteoarthritis Status Post Bilateral Hip Replacements Post- Traumatic Osteoarthritis, Right Wrist Mylene (O bstructive Sleep Apnea) Hypertension, Essential Osteoarthritis of Left Knee S/P Total Knee Arthroplasty, Left Obesity, Class I, Bmi 30-34.9 Weight Bearing or Surgical Precautions: WBAT ASSESSMENT: Focus of visit completed KTR protocol in its entirety, initiated steps so he could complete the ex's lying down Plan of care, goals, and visit frequency reviewed and agreed upon with patient and/or caregiver. Current Discharge Plan: outpatient rehab Anticipate discharge by 04/08/22 RECOMMENDATION: Next visit to focus on ther ex, gait,development See intervention summary for intervention/education details. documented in this [facility]Ad[facility] Miscellaneous Notes* PT SOC/OMARI/FOLLOW UP/OTHER - William Cason, PT - 03/18/2022 12:01 PM EDT SITUATION: spouse present during today's visit. patient reports he is tired and sore following L TKA. BACKGROUND: Diagnoses (reason for Home Care): L TKA Past Medical History: Degeneration of Intervertebral Disc, Site Unspecified Pain in Joint, Pelvic Region and Thigh Urinary Incontinence Benign Non-Nodular Prostatic Hyperplasia With Lower Urinary Tract Symptoms Primary Osteoarthritis of Right Hip Hip Osteoarthritis Status Post Bilateral Hip Replacements Post-Traumatic Osteoarthritis, Right Wrist Mylene (O bstructive Sleep Apnea) Hypertension, Essential Osteoarthritis of Left Knee S/P Total Knee Arthroplasty, Left Obesity, Class I, Bmi 30-34.9 Weight Bearing or Surgical Precautions: WBAT ASSESSMENT: Patient evaluated by [facility]. Reviewed and explained homecare services. Plan of care, goals, and visit frequency developed, reviewed, and agreed upon with patient and/or caregiver. Patient Goal: is to get stronger Patient will benefit from continued physical therapy to address the following deficits: strength, balance, gait, endurance, L knee joint ROM, transfers, stair negotiation, aerobic capacity and bed mobility. Current Discharge Plan: independent with home exercise program. Anticipate discharge by 04/08/22. RECOMMENDATION: Next visit to focus on standing tolerance, ambulation distance, seated HEP Agreeable to PT See intervention summary for intervention/education details. documented in this encounterAd[facility] Miscellaneous Notes* Telephone Encounter - Jailene Dorantes - 03/17/2022 3:06 PM EDT 03/17/2022 @ 3:06 PM Patient contacted in regards to SOC. Patient/caregiver agreeable to therapist on 03/18/2022. Jailene/Domestic Laundry Worker documented in this encounterAd[facility]05-[facility]22 NoteHNO ID: [id number] Author: Stephan Mendez MD Service: Orthopaedic Surgery Author Type: Resident Type: Progress Notes Filed: 03/17/2022 6:35 AM Note Text: ORTHOPAEDIC SURGERY PROGRESS NOTE PATIENT NAME: Shimon Amato A/P: 71 year old yo male POD1 s/p L TKA - Activity: WBAT LLE - Wound: Dressing change today to home going dressing - Antibiotics: Completing 24 hours of perioperative Ancef then DC - Imaging: none - Pain - PO and IV breakthrough - DVT prophylaxis - SCDs, ASA 81 BID - HLIV when tolerating sufficient PO - Jaeger: none Acute blood loss anemia hgb13 * Discharge planning - Await PT recs --> consults today - Case Management --> assessment today - Dispo: DC home today S: Doing well, pain well controlled, denies n/v/cp/sob VITALS: 03/16/22 1558 03/16/22 2017 03/17/22 0036 03/17/22 0425 BP: 132/82 151/89 125/69 123/73 Pulse: 67 83 71 65 Resp: 17 17 18 18 Temp: 36.7 ?C (98.1 ?F) 36.5 ?C (97.7 ?F) 36.5 ?C (97.7 ?F) 36.4 ?C (97.5 ?F) TempSrc: Oral Oral Oral Oral SpO2: 95% 96% 96% 96% Height: Intake/Output Summary (Last 24 hours) at 03/17/2022 0634 Last data filed at 03/16/2022 2344 Gross per 24 hour Intake 1340 ml Output 975 ml Net 365 ml Physical Exam: * Gen: awake, alert, converses appropriately, NAD * Resp: Unlabored on RA, no wheeze * LLE: - dressing c,d,i - 03/16 PF, DF, EHL - SILT sural saphenous, tibial, and peroneals - 2+ PT pulse, toes wwp Labs: CBC: Recent Labs 03/17/22 0320 WBC 12.52* HB 13.6 HCT 42.1 PLT 217 MCV 91.1 RDWCV 12.4 COAG: No results for input(s): APTT, INR in the last 168 hours. BMP: No results for input(s): GLUC, NA, K, CHLOR, CO2, ANION, BUN, CREAT in the last 168 hours. CHEM: No results for input(s): ALB, TPROT, CA, MG in the last 168 hours. URINALYSIS:No results for input(s): PH, SPGR, UGLUC, UBILI, UKET, UHB, UPROT, UROBIL, UWBC, SSA in the last 168 hours. Invalid input(s): GILLIAN Mendez MD Orthopaedic Surgery PGY-4 Pager: [phone] [id number] NoteHNO ID: [id number] Author: Xavier Keating MD Service: Anesthesiology Author Type: Anesthesiologist Type: Anesthesia Procedure Notes Filed: 03/16/2022 10:40 AM Note Text: ANESTHESIOLOGY PROCEDURE NOTE Peripheral Nerve Block General Information Procedure Start Time/Medication Administration: 03/16/2022 10:30 AM Procedure End time: 03/16/2022 10:36 AM Patient location during procedure: PACU Timeout Performed Pre-procedure: timeout performed Consent Obtained: Yes Patient identity confirmed: arm band Reason for block: post-op pain management/at surgeon's request Staffing Anesthesiologist: Xavier Keating MD Performed by: anesthesiologist Preparation Sterility Preparation: hand hygiene performed prior to procedure, sterile gloves, drapes, and procedure tray, surgical cap used, mask used, sterile drape used during line insertion, skin prep agent completely dried prior to procedure Sterility Technique Not Completely Performed Due to Extreme Emergency: No Site Prep: Chloraprep Pre-Procedure Neuro Exam Location: LLE Sensory: sensory deficit Motor: pre-existing condition Procedure Details Patient Position: supine Monitoring: Pulse OX, EKG and NIBP Block Type Lower Extremity: distal femoral (adductor canal) Laterality: left Injection Technique: single-shot Ultrasound Guided: Yes Image in Chart: yes Needle Needle Type: blunt and echogenic Needle Gauge: 21 G Needle Length: 100 mm Needle Insertion Depth: 6 cm Assessment Injection assessment: negative aspiration, no paresthesia on injection, incremental injection and local visualized surrounding nerve on ultrasound Paresthesia: none Post-Procedure Neuro Exam Expected Regional Anesthesia: Yes Medications Administered Dexamethasone sodium phosphate injection (DECADRON), 4 mg ropivacaine (PF) 10 mg/mL (1 %) injection (NAROPIN), 10 mL Comments 20 cc NS added to ropicavaine to make concentration 0.33% SIGNATURE: Xavier Keating MD PATIENT NAME: Shimon Amato DATE: March 16, 2022 TIME: 10:38 AM CSN: [id number] NoteHNO ID: [id number] Author: NEAL Forrester Service: Anesthesiology Author Type: Seasonal Clerk Type: Anesthesia Procedure Notes Filed: 03/16/2022 8:10 AM Note Text: ANESTHESIOLOGY PROCEDURE NOTE Spinal Block General Information Procedure Start Time/Medication Administration: 03/16/2022 7:57 AM Procedure End time: 03/16/2022 8:02 AM Patient location during procedure: OR Timeout Performed Pre-procedure: timeout performed Consent Obtained: Yes Patient identity confirmed: arm band and patient Reason for Block: primary surgical anesthetic Staffing CAA: NEAL Forrester Performed by: CAA and anesthesiologist Preparation Sterility Preparation: hand hygiene performed prior to procedure, sterile gloves, drapes, and procedure tray, surgical cap used, mask used, sterile drape used during line insertion, skin prep agent completely dried prior to procedure Site Prep: Duraprep Procedure Details Patient Position: sitting Ultrasound Guided: No Monitoring: EKG, Pulse Ox and NIBP Approach: Midline Location: L2-3 Injection Technique: single-shot Needle Needle Type: pencil-tip Needle Gauge: 25 G Needle Length: 3.5 in Assessment Events: tolerated well Medications Administered Bupivacaine-dextrose 0.75 % (7.5 mg/mL) injection (SENSORCAINE MPF SPINAL), 2 mL SIGNATURE: NEAL Forrester PATIENT NAME: Shimon Amato DATE: March 16, 2022 TIME: 8:09 AM CSN: [id number] NoteHNO ID: [id number] Author: TAVARES Huerta Service: Radiology Author Type: Garment Fitter Type: Progress Notes Filed: 02/24/2022 9:06 AM Note Text: Radiology Service Progress Note PATIENT NAME: Shimon Amato DATE OF SERVICE: February 24, 2022 TIME: 8:59 AM PATIENT IDENTITY VERIFICATION COMPLETED USING TWO (2) IDENTIFIERS: Name and Date of confirmed by patient verbally. FALL SCREENING: Has the patient had 2 falls in the last year or 1 fall with injury or currently using an Ambulatory Assistive Device (Walker, Cane, Wheelchair, Crutches, etc.)? No PATIENT GENDER DATA: Male PATIENT RELEVANT IMPLANT DATA REVIEWED: Not Applicable RADIOLOGY DEPARTMENT: CT; Exam(s) Completed: Lower extremity LT Emeterio Knee PERIPHERAL IV DATA: Not applicable SIGNED BY: TAVARES Huerta February 24, 2022 8:[address]04-15-2022 History of Present illness Narrative* TAVARES Huerta - 02/24/2022 9:00 AM EDT Radiology Service Progress Note PATIENT NAME: Shimon Amato DATE OF SERVICE: February 24, 2022 TIME: 8:59 AM PATIENT IDENTITY VERIFICATION COMPLETED USING TWO (2) IDENTIFIERS: Name and Date of confirmedby patient verbally. FALL SCREENING: Has the patient had 2 falls in the last year or 1 fall with injury or currently using an Ambulatory Assistive Device (Walker, Cane, Wheelchair, Crutches, etc.)? No PATIENT GENDER DATA: Male PATIENT RELEVANT IMPLANT DATA REVIEWED: Not Applicable RADIOLOGY DEPARTMENT: CT; Exam(s) Completed: Lower extremity LT Emeterio Knee PERIPHERAL IV DATA: Not applicable SIGNED BY: TAVARES Huerta February 24, 2022 8:59 AM [email or web address] documented in this encounterAd[facility]04[facility] History and physical note * Desirae Ibrahim PA-C - 02/22/2022 10:43 AM EDT HISTORY AND PHYSICAL EXAMINATION SERVICE DATE: 02/22/2022 SERVICE TIME: 10:43 AM PRIMARY CARE PHYSICIAN: Giovanni Mclean DO REASON FOR VISIT: Shimon Amato is a 71 year old male who is scheduled for left robotic hip replacement at the request of Dr. Luis Holliday for consultation. My final recommendation will be communicated back to the requesting physician by way of shared medical record or letter. The patient has the following: ACTIVE PROBLEM LIST Degeneration of Intervertebral Disc, Site Unspecified Pain in Joint, Pelvic Region and Thigh Urinary Incontinence Benign Non-Nodular Prostatic Hyperplasia With Lower Urinary Tract Symptoms Primary Osteoarthritis of Right Hip Hip Osteoarthritis Status Post Bilateral Hip Replacements Post-Traumatic Osteoarthritis, Right Wrist Mylene (Obstructive Sleep Apnea) Hypertension, Essential Osteoarthritis of Left Knee Subjective CHIEF COMPLAINT: PACC HPI: 71 YO WM is here for PACC. He has chronic left knee pain for several years causing difficulty walking, taking stairs, being active. Symptoms are progressive. He's had both hips replacement without complications. PAST MEDICAL HISTORY Diagnosis Date Benign non-nodular prostatic hyperplasia with lower urinary tract symptoms 09/15/2015 Hypertension OAB (overactive bladder) Sleep apnea PAST SURGICAL HISTORY Procedure Laterality Date APPENDECTOMY 1976 APPENDECTOMY HX ARTHROSCOPY KNEE DIAGNOSTIC W/WO SYNOVIAL BX SPX Left Arthroscopy, knee COLONOSCOPY 12/19/2021 repeat in 10 years JOINT REPLACEMENT HX NEUROPLASTY &/TRANSPOS MEDIAN NRV CARPAL TUNNE Right Carpal tunnel decomp PAST SURGICAL HISTORY OF neuroma right hand PAST SURGICAL HISTORY OF Left 10/15/2014 Arthroplasty left -[facility] PAST SURGICAL HISTORY OF Right 1999 wrist fusion PAST SURGICAL HISTORY OF uvulectomy PAST SURGICAL HISTORY OF Bilateral 08/2018 and 10/2014 CATRACHITA TONSILLECTOMY HX FAMILY HISTORY Problem Relation Age of Onset Stroke Mother other (Other) Father hip fracture/blood clot, was on AC prior to that for ? heart Arthritis Sister No Known Problems Brother Cancer Brother SOCIAL HISTORY: Social History Tobacco Use Smoking status: Never Smoker Smokeless tobacco: Never Used Vaping Use Vaping Use: Never used Substance Use Topics Alcohol use: Yes Alcohol/week: 5.0 standard drinks Types: 2 Glasses of Wine (5oz) per week Comment: few times a month Drug use: No MEDICATIONS: Prior to Admission medications as of 02/22/22 1011 Medication Sig Last Dose Taking aspirin, enteric coated (ASPIRIN, ENTERIC COATED) 81 mg EC tablet Take 81 mg by mouth once daily. Taking Yes calcium carbonate/vitamin D3 (CALCIUM 500 + D ORAL) Take by mouth. Taking Yes multivitamin tablet Take 1 tablet by mouth once daily. Taking Yes peg 3350-Electrolytes (GOLYTELY) 236-22.74-6.74 -5.86 gram suspension Refer to printed prep instructions from your provider. Gatorade Sports Drink Use as directed for Miralax / Gatorade Bowel Prep Kit Patient not taking: Reported on 02/22/2022 Not Taking Bisacodyl (DULCOLAX) 5 mg tab Use as directed for Miralax / Gatorade Bowel Prep Kit Patient not taking: Reported on 02/22/2022 Not Taking losartan (COZAAR) 50 mg tablet Take 1 tablet by mouth twice daily. Patient not taking: Reported on 11/21/2021 Not Taking Cholecalciferol, Vitamin D3, (VITAMIN D) 25 mcg (1,000 unit) cap Take 1,000 Units by mouth once daily. Patient not taking: Reported on 02/22/2022 Not Taking No medication comments found. CURRENT ALLERGIES: ALLERGIES Allergen Reactions Latex Rash COVID VACCINATION STATUS: Fully vaccinated REVIEW OF SYSTEMS: PAIN ASSESSMENT: General: No weight loss, malaise or fevers. Neuro: No history of TIA's, stroke, RESEARCH AND EVALUATION MANAGER tumor, impaired sensorium, hemiplegia, paraplegia or quadraplegia. No neurological symptoms or problems. Respiratory: No history of current cough or dyspnea, or pneumonia in the past 6 weeks. No history of respiratory/pulmonary symptoms or problems. Cardiovascular: HTN, no longer needs meds; Denies all cardiac symptoms otherwise. GI: No history of GI symptoms or problems. No history of esophageal varices, recent ascites, or ETOH greater than 2 drinks per day. : BPH with chronic mild frequency, stable; no dysuria, hematuria, KD Endocrine: No history of diabetes. Has not taken steroids within the past 30 days. No history of endocrinological symptoms or problems. Hematology: Chronic anti-coagulation / platelet meds (Aspirin) preventatively; no clot/bleeding hx or sx Oncology: No history of CA metastasis, chemo within 30 days, or radiotherapy within 90 days. Has not lost 10% of body wt in 6 months. No history of oncological symptoms or problems. Psych: No history of psychiatric symptoms or problems. Musculoskeletal: See HPI Skin: Negative for lesions, rash and itching. Objective PHYSICAL EXAM: VITALS: BP 130/75 Pulse 73 Temp (Src) 97.6 (Temporal) Resp 18 Ht 5' 11 (1.80m) Wt 216 lb 1.6 oz (98.0kg) BMI 30.15 kg/(m^2). General: Alert and oriented, No acute distress, Healthy appearance Skin: Normal color, no rash, no lesions. HEENT: EOM, pupils equal, round and reactive. No URI sx Cardiovascular: Normal S1 & S2, no rubs, murmurs or gallops. No JVD. Pulse regular. Lungs: Normal breath sounds, no wheezes or crackles. Abdomen: ND Extremities: No c/c/e/e Left knee in brace. Neurological: CN II-XII grossly intact Pulses: pedal and radial pulses normal +2 Diagnostic tests reviewed for today's visit: Lab Value Units Date High Low HB No results within date range. HCT No results within date range. WBC No results within date range. PLT No results within date range. NA No results within date range. K No results within date range. GLUC No results within date range. BUN No results within date range. CREAT No results within date range. PTSEC No results within date range. INR No results within date range. APTT No results within date range. ALT No results within date range. AST No results within date range. TBILI No results within date range. TSH No results within date range. Lab Value Units Date High Low HCGQT No results within date range. UHCG No results within date range. HCG, BODY* No results within date range. Lab Value Units Date High Low ABORHD No results within date range. ABSCREEN No results within date range. No results found for: HBA1C Most recent labs Most recent EKG: Most recent Echo Impression CONCLUSIONS: - Exam indication: SOB - The left ventricle is normal in size. Left ventricular systolic function is mildly decreased. EF = 49 5% (2D biplane) Normal left ventricular diastolic function. - The right ventricle is normal in size. Right ventricular systolic function is normal. - The right atrial cavity is dilated. - The visualized aorta is borderline dilated with a maximal dimension of 4.0 cm. - The patient has not had a prior [facility] echocardiographic exam for comparison. Assessment/Plan (Z01.818) Pre-operative examination (primary encounter diagnosis) (M17.12) Osteoarthritis of left knee, unspecified osteoarthritis type (I10) Hypertension, essential Now on lifestyle modification for control, 130/75 today. ECG NSR, borderline LAD. Acceptable for surgery. (N40.1) Benign non-nodular prostatic hyperplasia with lower urinary tract symptoms Mild chronic sx. (R35.0) Urinary frequency (R06.83) Snores Reports he was tested for MYLENE but tested negative. Had uvulectomy. METS: Do heavy work around the house, such as scrubbing floors, lifting or moving heavy furniture (8.00 METs) Patient denies any chest pain or undue shortness of breath with the above physical activity. DASI Score: ASA Class: 2 ANESTHESIA FINDINGS: Intubation History: No history of difficult intubation Significant Anesthesia Considerations: None Airway Exam: General: Normal appearance Mallampati Score is CLASS III ULBT: Class I - Lower incisors can bite the upper lip above the dayron line Neck: short appearance and Normal function, Distance from hyoid to mentum during neck extension is at least 3 finger breaths Mouth: Normal tongue size and Mouth opening greater than 2 finger breaths Dentition: Caps/crowns Airway History: No abnormal airway history STOP BANG Score: Criteria: Snoring Hypertension Age over 50 (71 year old) Neck circumference > 15.75 inches Male gender Score = 5 PLAN This patient is optimally prepared for surgery pending LABS. CONSULTS: Patient does not require consults for optimization at this time. The Following Tests/Procedures Have Been Initiated: Orders Placed This Encounter CBC with Differential Standing Status: Future Standing Expiration Date: 04/24/2022 COMP METABOLIC PANEL Standing Status: Future Standing Expiration Date: 04/24/2022 Urinalysis with Microscopic Standing Status: Future Standing Expiration Date: 04/24/2022 Type and Screen, 30 day Standing Status: Future Standing Expiration Date: 04/24/2022 URINE CULTURE Standing Status: Future Standing Expiration Date: 04/24/2022 Order Specific Question: Source Answer: URINE-MIDSTREAM CLEAN CATCH ECG COMPLETE Standing Status: Future Standing Expiration Date: 02/22/2023 Planned Anesthetic: Per anesthesia choice Instructions Given to Patient: Instructions located in the after visit summary. Patient given verbal and written preop instructions and voices comprehension and compliance. SIGNATURE: Desirae Ibrahim PA-C PATIENT NAME: Shimon Amato DATE: February 22, 2022 TIME: 10:43 AM [facility] Instructions* Patient Instructions* Desirae Ibrahim PA-C - 02/22/2022 10:32 AM EDT PATIENT PREOPERATIVE INSTRUCTIONS Luis Holliday MD has scheduled you for your procedure at this surgery center: [facility]: [phone] --[address] [place] [address]. On your scheduled day of surgery, please report to Patient Registration, ground floor Please read below carefully for your personalized instructions. Dietary Restrictions: - No solid food after midnight. - You may have 12 ounces of clear liquids (water, clear juices such as apple juice or gatorade, carbonated beverages, clear tea, black coffee, jello) until 2 hours before scheduled arrival at facility. Medications: Unless instructed differently below, stay on all of your medications until your surgery. Approved medications to take the morning of surgery with a sip of water: none If you take any medications for erectile dysfunction-Cialis (Tadalafil), Levitra, Staxyn (Vardenafil) Viagra (Sildenenafil please do not take these for 48 hours before surgery. If you start any new medications after today's visit, please contact the surgeon's office. Blood Thinning Medications: - Stop NSAIDS (Ibuprofen, Advil, Aleve, Motrin, Celebrex, Mobic, etc.) 7 days before surgery, as directed by your surgeon. - Stop Aspirin 7 days before surgery, as directed by your surgeon. - Stop Vitamin E, ALL multi-vitamins, herbals and dietary supplements 14 days before surgery. - You may take Tylenol (Acetaminophen) or any of your pain medications that do not contain aspirin or NSAIDS as needed. Important Reminders: - If you use CPAP/BIPAP, bring the machine with you to the surgery center. - If you are prescribed inhalers for breathing, continue using them. You MUST have COVID 19 testing within 3 days of your surgery. If you haven't received a call for testing yet, please call your surgeon's office to arrange. Your surgery will be cancelled if this is not completed. - Candy, mints, and tobacco products are NOT permitted the morning of surgery. - Hearing aids, dentures and glasses may be worn the morning of surgery. - NO jewelry, body piercings, makeup, hairpins or contacts are to be worn the day of surgery. If you develop symptoms such as a fever, cold, or flu, or have other changes to your health within TWO DAYS of scheduled surgery or the morning of surgery, please contact the surgery center above. Personal Belongings: -Please have photo ID and insurance cards. -If you do not have a copy of advance directives on file with us, please bring a copy with you on the day of surgery. - Leave ALL valuables and money at home or with family members. For Outpatient Procedures: - YOU MUST HAVE A RESPONSIBLE AIRCRAFT MAGNETO MECHANIC TAKE YOU HOME. A EDGE GLUER OR GAMBRELER CANNOT BE MADE A RESPONSIBLE AIRCRAFT MAGNETO MECHANIC. - We recommend that a responsible person stays with you overnight to take care of you. - You cannot stay in a hotel alone after outpatient surgery. You will not be permitted to have yoursurgery, if you do not have someone to take care of you. Arrival Time for Surgery: - The Surgery Center or hospital where you are having surgery will call the afternoon before surgery (or Sunday for Sunday surgery) with a scheduled arrival time. - If you have not heard by 4 pm, please contact the surgery center above. Please be aware that emergency situations arise, which may delay or change your surgical time. If this happens, we will notify you as soon as possible and regret any inconvenience. If you already have an Advance Directive, please fax a copy to [phone] or email to for it to be added to your chart. If you do not have an Advance Directive, you can find the appropriate form and more information at [email or web address]. We recommend that youcomplete the Advance Directive form found on the website and bring it with you the day of your surgery. It can be witnessed and scanned into your chart that day. Desirae Ibrahim PA-C documented in this encounterAd[facility]04-13-[facility] Nurse Note* Ivelisse Orozco - 02/22/2022 10:11 AM EDT Advance Directives discussed with patient: AD in chart and current. . Ivelisse Orozco February 22, 2022 10:12 AM documented in this encounterAd[facility] Miscellaneous Notes* Telephone Encounter - Charmaine Kuhn RN - 08/05/2021 10:50 AM EDT Scheduling center called office to report that order for echo was cancelled. Patient scheduled for echo on 08/08 at [facility]. Please file new order so appt does not get cancelled. [facility] Diagnosis Primary hypertension- Primary Unspecified essential hypertension SUGGS (dyspnea on exertion) Other dyspnea and respiratory abnormality [facility] Diagnosis Pre-operative examination- Primary Preoperative examination, unspecified Osteoarthritis of left knee, unspecified osteoarthritis type Hypertension, essential Unspecified essential hypertension Benign non-nodular prostatic hyperplasia with lower urinary tract symptoms Urinary frequency Snores Other dyspnea and respiratory abnormality Primary osteoarthritis of left knee Primary localized osteoarthrosis, lower leg [facility]* Diagnosis Pre-op testing- Primary Preoperative examination, unspecified Primary osteoarthritis of left knee Primary localized osteoarthrosis, lower leg [facility]* Diagnosis Primary osteoarthritis of left knee- Primary Primary localized osteoarthrosis, lower leg Primary osteoarthritis of left knee Primary localized osteoarthrosis, lower leg documented in [facility]* Diagnosis Primary osteoarthritis of left knee Primary localized osteoarthrosis, lower leg Arthritis of knee Unspecified arthropathy, lower leg Preop testing Preoperative examination, unspecified Primary osteoarthritis of left knee Primary localized osteoarthrosis, lower leg [facility]* Diagnosis Status post left knee replacement- Primary documented in this [facility]* Diagnosis Status post left knee replacement documented in this encounter [facility]* Diagnosis Status post left knee replacement- Primary documented in this [facility]* Diagnosis Status post left knee replacement- Primary Status post unilateral knee replacement, left [facility]* Diagnosis Status post left knee replacement- Primary documented in this encounter [facility]* Diagnosis Status post left knee replacement- Primary [facility]* Diagnosis Status post left knee replacement- Primary documented in this encounter [facility]* Diagnosis Status post left knee replacement- Primary documented in this encounter [facility] note* Diagnosis Status post left knee replacement- Primary [facility]* Diagnosis Status post left knee replacement- Primary [facility] Diagnosis Status post left knee replacement- Primary documented in this encounter [facility]* Diagnosis Status post left knee replacement- Primary [facility]* Diagnosis Primary osteoarthritis of left knee Primary localized osteoarthrosis, lower leg Arthritis of knee Unspecified arthropathy, lower leg documented in this [facility]* Diagnosis Hypertension, essential- Primary Unspecified essential hypertension Screening for prostate cancer Special screening for malignant neoplasm of prostate documented [facility]* Diagnosis Hypertension, essential- Primary Unspecified essential hypertension Mixed hyperlipidemia Benign prostatic hyperplasia without lower urinary tract symptoms documented in this encounter [facility]* Diagnosis Right shoulder pain, unspecified chronicity- Primary [facility]* Diagnosis Rotator cuff disorder, right- Primary [facility]* Diagnosis Right shoulder pain, unspecified chronicity documented in this encounter [facility] note* Diagnosis Pre-operative examination- Primary Preoperative examination, unspecified Post-traumatic osteoarthritis, right wrist MYLENE (obstructive sleep apnea) Obstructive sleep apnea (adult) (pediatric) Status post bilateral hip replacements Hip joint replacement by other means Benign non-nodular prostatic hyperplasia with lower urinary tract symptoms Paresthesias in left hand- Primary Disturbance of skin sensation documented [facility] this encounter [facility] Diagnosis Pre-operative examination- Primary Preoperative examination, unspecified Post-traumatic osteoarthritis, right wrist MYLENE (obstructive sleep apnea) Obstructive sleep apnea (adult) (pediatric) Status post bilateral hip replacements Hip joint replacement by other means Benign non-nodular prostatic hyperplasia with lower urinary tract symptoms Paresthesias in left hand Disturbance of skin sensation [facility] this encounter [facility] Diagnosis Pre-operative examination- Primary Preoperative examination, unspecified Post-traumatic osteoarthritis, right wrist MYLENE (obstructive sleep apnea) Obstructive sleep apnea (adult) (pediatric) Status post bilateral hip replacements Hip joint replacement by other means Benign non-nodular prostatic hyperplasia with lower urinary tract symptoms Carpal tunnel syndrome of left wrist- Primary Carpal tunnel syndrome Left carpal tunnel syndrome Carpal tunnel syndrome [facility] encounter [facility] Diagnosis Pre-operative examination- Primary Preoperative examination, unspecified Post-traumatic osteoarthritis, right wrist MYLENE (obstructive sleep apnea) Obstructive sleep apnea (adult) (pediatric) Status post bilateral hip replacements Hip joint replacement by other means Benign non-nodular prostatic hyperplasia with lower urinary tract symptoms Left carpal tunnel syndrome- Primary Carpal tunnel syndrome Left carpal tunnel syndrome Carpal tunnel syndrome documented [facility] this encounter [facility] Diagnosis Pre-operative examination- Primary Preoperative examination, unspecified Post-traumatic osteoarthritis, right wrist MYLENE (obstructive sleep apnea) Obstructive sleep apnea (adult) (pediatric) Status post bilateral hip replacements Hip joint replacement by other means Benign non-nodular prostatic hyperplasia with lower urinary tract symptoms History of carpal tunnel surgery of left wrist- Primary Radiculopathy, cervical Brachial neuritis or radiculitis nos documented [facility] this encounter [facility]* Diagnosis Pre-operative examination- Primary Preoperative examination, unspecified Post-traumatic osteoarthritis, right wrist MYLENE (obstructive sleep apnea) Obstructive sleep apnea (adult) (pediatric) Status post bilateral hip replacements Hip joint replacement by other means Benign non-nodular prostatic hyperplasia with lower urinary tract symptoms Cough productive of purulent sputum- Primary Cough [facility] Diagnosis Pre-operative examination- Primary Preoperative examination, unspecified Post-traumatic osteoarthritis, right wrist MYLENE (obstructive sleep apnea) Obstructive sleep apnea (adult) (pediatric) Status post bilateral hip replacements Hip joint replacement by other means Benign non-nodular prostatic hyperplasia with lower urinary tract symptoms Rupture of right proximal biceps tendon, initial encounter- Primary Nontraumatic tear of right rotator cuff, unspecified tear extent [facility]* Diagnosis Pre-operative examination- Primary Preoperative examination, unspecified Post-traumatic osteoarthritis, right wrist MYLENE (obstructive sleep apnea) Obstructive sleep apnea (adult) (pediatric) Status post bilateral hip replacements Hip joint replacement by other means Benign non-nodular prostatic hyperplasia with lower urinary tract symptoms Nontraumatic tear of right rotator cuff, unspecified tear extent- Primary Rupture of right proximal biceps tendon, initial encounter [facility]* Diagnosis Pre-operative examination- Primary Preoperative examination, unspecified Post-traumatic osteoarthritis, right wrist MYLENE (obstructive sleep apnea) Obstructive sleep apnea (adult) (pediatric) Status post bilateral hip replacements Hip joint replacement by other means Benign non-nodular prostatic hyperplasia with lower urinary tract symptoms Nontraumatic tear of right rotator cuff, unspecified tear extent Rupture of right proximal biceps tendon, initial encounter documented [facility] this [facility]* Diagnosis Pre-operative examination- Primary Preoperative examination, unspecified Post-traumatic osteoarthritis, right wrist MYLENE (obstructive sleep apnea) Obstructive sleep apnea (adult) (pediatric) Status post bilateral hip replacements Hip joint replacement by other means Benign non-nodular prostatic hyperplasia with lower urinary tract symptoms Nontraumatic tear of right rotator cuff, unspecified tear extent- Primary Rupture of right proximal biceps tendon, initial encounter [facility]* Diagnosis Pre-operative examination- Primary Preoperative examination, unspecified Post-traumatic osteoarthritis, right wrist MYLENE (obstructive sleep apnea) Obstructive sleep apnea (adult) (pediatric) Status post bilateral hip replacements Hip joint replacement by other means Benign non-nodular prostatic hyperplasia with lower urinary tract symptoms Radiculopathy, cervical- Primary Brachial neuritis or radiculitis nos Traumatic complete tear of right rotator cuff, subsequent encounter Rupture of right proximal biceps tendon, initial encounter [facility] this [facility]* Diagnosis Pre-operative examination- Primary Preoperative examination, unspecified Post-traumatic osteoarthritis, right wrist MYLENE (obstructive sleep apnea) Obstructive sleep apnea (adult) (pediatric) Status post bilateral hip replacements Hip joint replacement by other means Benign non-nodular prostatic hyperplasia with lower urinary tract symptoms Traumatic complete tear of right rotator cuff, subsequent encounter- Primary Rupture of right proximal biceps tendon, initial encounter Traumatic complete tear of right rotator cuff, subsequent encounter Rupture of right proximal biceps tendon, initial encounter documented [facility] encounter [facility]* Diagnosis Pre-operative examination- Primary Preoperative examination, unspecified Post-traumatic osteoarthritis, right wrist MYLENE (obstructive sleep apnea) Obstructive sleep apnea (adult) (pediatric) Status post bilateral hip replacements Hip joint replacement by other means Benign non-nodular prostatic hyperplasia with lower urinary tract symptoms Traumatic complete tear of right rotator cuff, subsequent encounter- Primary Rupture of right proximal biceps tendon, initial encounter Traumatic complete tear of right rotator cuff, subsequent encounter Rupture of right proximal biceps tendon, initial encounter documented in this encounter [facility]* Diagnosis Pre-operative examination- Primary Preoperative examination, unspecified Post-traumatic osteoarthritis, right wrist MYLENE (obstructive sleep apnea) Obstructive sleep apnea (adult) (pediatric) Status post bilateral hip replacements Hip joint replacement by other means Benign non-nodular prostatic hyperplasia with lower urinary tract symptoms Spinal stenosis of cervical region- Primary Spinal stenosis in cervical region Tear of right rotator cuff, unspecified tear extent, unspecified whether traumatic Traumatic complete tear of right rotator cuff, subsequent encounter Rupture of right proximal biceps tendon, initial encounter documented [facility]* Diagnosis Pre-operative examination- Primary Preoperative examination, unspecified Post-traumatic osteoarthritis, right wrist MYLENE (obstructive sleep apnea) Obstructive sleep apnea (adult) (pediatric) Status post bilateral hip replacements Hip joint replacement by other means Benign non-nodular prostatic hyperplasia with lower urinary tract symptoms Preop examination- Primary Preoperative examination, unspecified Traumatic complete tear of right rotator cuff, subsequent encounter Rupture of right proximal biceps tendon, initial encounter MYLENE (obstructive sleep apnea) Obstructive sleep apnea (adult) (pediatric) H/O echocardiogram Other specified personal history presenting hazards to health Hypertension, essential Unspecified essential hypertension Traumatic complete tear of right rotator cuff, subsequent encounter Rupture of right proximal biceps tendon, initial encounter * Assessment & Plan Note - Hakeem Agudelo APRN.C++ QUANT DEVELOPER - 04/13/2025 11:44 AM EDT Associated Problem(s): Hypertension, essential BP elevated today, patient denies chest pain, SOB, ESCALANTE, dizziness, syncope. Patient states BP has been somewhat elevated, no current medication. Follow PCP. * Assessment & Plan Note - Hakeem Agudelo APRN.CNP - 04/13/2025 11:43 AM EDT Associated Problem(s): H/O echocardiogram Previous finding of EF = 49 5%, aorta dilation 4.0cm Patient denies any chest pain, SOB, METs >8 No previous h/o cardiac disease, taking ASA 81mg for prevention ECHO 08/08/21 CONCLUSIONS: - Exam indication: SOB - The left ventricle is normal in size. Left ventricular systolic function is mildly decreased. EF = 49 5% (2D biplane) Normal left ventricular diastolic function. - The right ventricle is normal in size. Right ventricular systolic function is normal. - The right atrial cavity is dilated. - The visualized aorta is borderline dilated with a maximal dimension of 4.0 cm. - The patient has not had a prior [facility] echocardiographic exam for comparison. * Assessment & Plan Note - Hakeem Agudelo APRN.CNP - 04/10/2025 3:32 PM EDT Associated Problem(s): MYLENE (obstructive sleep apnea) S/p uvulectomy, no CPAP * Assessment & Plan Note - Hakeem Agudelo APRN.CNP - 04/10/2025 3:31 PM EDT Associated Problem(s): Rupture of right proximal biceps tendon See HPI, surgery scheduled 04/20/25 * Assessment & Plan Note - Hakeem Agudelo APRN.CNP - 04/10/2025 3:31 PM EDT Associated Problem(s): Traumatic complete tear of right rotator cuff See HPI, surgery scheduled 04/20/25 * Assessment & Plan Note - Hakeem Agudelo APRN.CNP - 04/10/2025 3:31 PM EDT Associated Problem(s): Preop examination See note for medical conditions which may affect gregoria-operative course addressed in visit today. documented [facility] hospital note* Diagnosis Pre-operative examination- Primary Preoperative examination, unspecified Post-traumatic osteoarthritis, right wrist MYLENE (obstructive sleep apnea) Obstructive sleep apnea (adult) (pediatric) Status post bilateral hip replacements Hip joint replacement by other means Benign non-nodular prostatic hyperplasia with lower urinary tract symptoms Preop examination- Primary Preoperative examination, unspecified Traumatic complete tear of right rotator cuff, subsequent encounter Rupture of right proximal biceps tendon, initial encounter MYLENE (obstructive sleep apnea) Obstructive sleep apnea (adult) (pediatric) H/O echocardiogram Other specified personal history presenting hazards to health Hypertension, essential Unspecified essential hypertension Cervical spondylosis with myelopathy Traumatic complete tear of right rotator cuff, subsequent encounter Rupture of right proximal biceps tendon, initial encounter [facility] Pre-operative examination- Primary Preoperative examination, unspecified Post-traumatic osteoarthritis, right wrist MYLENE (obstructive sleep apnea) Obstructive sleep apnea (adult) (pediatric) Status post bilateral hip replacements Hip joint replacement by other means Benign non-nodular prostatic hyperplasia with lower urinary tract symptoms Preop examination- Primary Preoperative examination, unspecified Traumatic complete tear of right rotator cuff, subsequent encounter Rupture of right proximal biceps tendon, initial encounter MYLENE (obstructive sleep apnea) Obstructive sleep apnea (adult) (pediatric) H/O echocardiogram Other specified personal history presenting hazards to health Hypertension, essential Unspecified essential hypertension Tear of right rotator cuff, unspecified tear extent, unspecified whether traumatic- Primary [facility] Diagnosis Pre-operative examination- Primary Preoperative examination, unspecified Post-traumatic osteoarthritis, right wrist MYLENE (obstructive sleep apnea) Obstructive sleep apnea (adult) (pediatric) Status post bilateral hip replacements Hip joint replacement by other means Benign non-nodular prostatic hyperplasia with lower urinary tract symptoms Preop examination- Primary Preoperative examination, unspecified Traumatic complete tear of right rotator cuff, subsequent encounter Rupture of right proximal biceps tendon, initial encounter MYLENE (obstructive sleep apnea) Obstructive sleep apnea (adult) (pediatric) H/O echocardiogram Other specified personal history presenting hazards to health Hypertension, essential Unspecified essential hypertension Nontraumatic tear of right rotator cuff, unspecified tear extent [facility] Diagnosis Pre-operative examination- Primary Preoperative examination, unspecified Post-traumatic osteoarthritis, right wrist MYLENE (obstructive sleep apnea) Obstructive sleep apnea (adult) (pediatric) Status post bilateral hip replacements Hip joint replacement by other means Benign non-nodular prostatic hyperplasia with lower urinary tract symptoms Preop examination- Primary Preoperative examination, unspecified Traumatic complete tear of right rotator cuff, subsequent encounter Rupture of right proximal biceps tendon, initial encounter MYLENE (obstructive sleep apnea) Obstructive sleep apnea (adult) (pediatric) H/O echocardiogram Other specified personal history presenting hazards to health Hypertension, essential Unspecified essential hypertension Nontraumatic tear of right rotator cuff, unspecified tear extent- Primary [facility] Pre-operative examination- Primary Preoperative examination, unspecified Post-traumatic osteoarthritis, right wrist MYLENE (obstructive sleep apnea) Obstructive sleep apnea (adult) (pediatric) Status post bilateral hip replacements Hip joint replacement by other means Benign non-nodular prostatic hyperplasia with lower urinary tract symptoms Preop examination- Primary Preoperative examination, unspecified Traumatic complete tear of right rotator cuff, subsequent encounter Rupture of right proximal biceps tendon, initial encounter MYLENE (obstructive sleep apnea) Obstructive sleep apnea (adult) (pediatric) H/O echocardiogram Other specified personal history presenting hazards to health Hypertension, essential Unspecified essential hypertension Tear of right rotator cuff, unspecified tear extent, unspecified whether traumatic- Primary [facility] Diagnosis Pre-operative examination- Primary Preoperative examination, unspecified Post-traumatic osteoarthritis, right wrist MYLENE (obstructive sleep apnea) Obstructive sleep apnea (adult) (pediatric) Status post bilateral hip replacements Hip joint replacement by other means Benign non-nodular prostatic hyperplasia with lower urinary tract symptoms Preop examination- Primary Preoperative examination, unspecified Traumatic complete tear of right rotator cuff, subsequent encounter Rupture of right proximal biceps tendon, initial encounter MYLENE (obstructive sleep apnea) Obstructive sleep apnea (adult) (pediatric) H/O echocardiogram Other specified personal history presenting hazards to health Hypertension, essential Unspecified essential hypertension Nontraumatic tear of right rotator cuff, unspecified tear extent- Primary documented in this encounter [facility] home Plan of care note* Visit Details Visit Type -PT SOC Discipline -Physical Therapy Problems Problem Description Start Date Status Goals Interve ntions Medication Education Disciplines: Skilled Services 03/18/2022 Active 1 goal linked to scheduled/document ed intervention 1 goal intervention scheduled/document ed in this visit Sepsis Disciplines: Skilled Services 03/18/2022 Active 1 goal linked to scheduled/document ed intervention 1 goal intervention scheduled/document ed in this visit Physician Specific Parameters Disciplines: Skilled Services 03/18/2022 Active 1 goal linked to scheduled/document ed intervention 1 goal intervention scheduled/document ed in this visit Risk for Falls Disciplines: Skilled Services 03/18/2022 Active 1 goal linked to scheduled/document ed intervention 1 goal intervention scheduled/document ed in this visit Pain Disciplines: Skilled Services 03/18/2022 Active 1 goal linked to scheduled/document ed intervention 1 goal intervention scheduled/document ed in this visit High Risk Medications Disciplines: Skilled Services 03/18/2022 Active 1 goal linked to scheduled/document ed intervention 1 goal intervention scheduled/document ed in this visit Discharge Disciplines: Skilled Services 03/18/2022 Active 1 goal linked to scheduled/document ed intervention 1 goal intervention scheduled/document ed in this visit Advance Directives Disciplines: Skilled Services 03/18/2022 Resolved on 03/18/2022 1 goal linked to scheduled/document ed intervention 1 goal intervention scheduled/document ed in this visit PT Impaired Aerobic Capacity Disciplines: PT 03/18/2022 Active 1 goal linked to scheduled/document ed intervention 1 goal intervention scheduled/document ed in this visit PT Impaired muscle performance and/or ROM Disciplines: PT 03/18/2022 Active 1 goal linked to scheduled/document ed intervention 1 goal intervention scheduled/document ed in this visit PT Impaired mobility Disciplines: PT 03/18/2022 Active 2 goals linked to scheduled/document ed interventions 2 goal interventions scheduled/document ed in this visit PT Impaired gait Disciplines: PT 03/18/2022 Active 1 goal linked to scheduled/document ed intervention 1 goal intervention scheduled/document ed in this visit PT Impaired balance Disciplines: PT 03/18/2022 Active 1 goal linked to scheduled/document ed intervention 1 goal intervention scheduled/document ed in this visit PT Orthopedic Condition Disciplines: PT 03/18/2022 Active 1 goal linked to scheduled/document ed intervention 4 goal interventions scheduled/document ed in this visit PT Learning Assessment Disciplines: PT 03/18/2022 Active 1 goal linked to scheduled/document ed intervention 1 goal intervention scheduled/document ed in this visit Goals Goal Associated Problem Outcome Goal Met? Visit Notes Patient/caregiver will demonstrate ability to obtain, store, identify and administer ordered medications, keep accurate medication list in home, and adhere to medication schedule Medication Education No Patient/caregiver will be able to identify signs/symptoms of sepsis infection and will verbalize actions to take if suspected Sepsis No Patient to maintain parameters within physician-specified ranges Physician Specific Parameters No Manage Risk for falls Description: Patient/caregiver will verbalize knowledge of individualized fall prevention strategies by 04/08/22. Risk for Falls No Manage Pain Description: Patient/caregiver will verbalize knowledge and understanding of appropriate techniques to control pain, including non-pharmacological techniques. Patient will verbalize or demonstrate an acceptable level of pain as evidenced by a pain score of 0-2/10 and improvement in ability to perform activities of daily living to be achieved by 04/08/22. Pain No Patient/caregiver will teach back high risk medication side effect and precaution education High Risk Medications No Manage discharge planning Description: Patient/caregiver will verbalize understanding of ongoing discharge plan provided related to disease management, arrangements for outpatient and/or community services, obtaining medications, supplies, and DME, as needed. Discharge No Patient/caregiver will make healthcare providers aware of Advance Directives Advance Directives Completed Yes Goal Met Improved Aerobic Capacity Description: LTG: Patient will demonstrate improved aerobic capacity to meet functional goals as evidenced by Rate of Percieved Exertion (RPE) of 0-2/10 during knee ROM activity, to be achieved by 04/08/22. PT Impaired Aerobic Capacity No Improved Muscle Performance and/or ROM Description: LTG: Patient will demonstrate improved muscle performance to meet functional goals as evidenced by ability to tolerate 8 mins of standing activity, to be achieved by 04/08/22. LTG: Patient and/or caregiver will verbalize/demonstrate independence with home exercise program, to improve functional mobility, to be achieved by 04/08/22. LTG: Patient will demonstrate improved left knee passive range of motion to 0-110 degrees, to meet functional goals, to be achieved by 04/08/22. PT Impaired muscle performance and/or ROM No Improved Transfers Description: LTG: Patient will demonstrate safe transfers to/from bed, chair and toilet independently with AD, to be achieved by 04/08/22. PT Impaired mobility No Improved Bed Mobility Description: STG: Patient will demonstrate improved bed mobility and ability to position self independently to be achieved by 04/01/22. PT Impaired mobility No Improved Gait Description: LTG: Patient will demonstrate improved gait ability as evidenced by ambulation 200 feet with single point cane independently with AD, to return to safe household ambulation, in order to reach car in the driveway, to be achieved by 04/08/22. PT Impaired gait No Improved Balance Description: LTG: Patient will demonstrate improved standing balance to meet functional goals as evidenced by TUG score of 22 to be achieved by 04/08/22. PT Impaired balance No Manage Orthopedic Condition Description: Improve patient and/or caregiver understanding of post surgical and/or non-surgical orthopedic intervention management as evidenced by patient and/or caregiver able to verbalize, demonstrate, and teach back instruction, to be achieved by 04/08/22. PT Orthopedic Condition No Demonstrate understanding of education Description: Patient and/or caregiver will understand educational instruction to be achieved by 04/08/22. PT Learning Assessment No Interventions Intervention Associated Problem/Goal Status Variance Visit Notes Medication Education Description: Evaluate/instruct patient/caregiver on obtaining, storing, identifying and administering ordered medications as well as keeping accurate medication list in the home and adhereing to medication schedule Problem:Medication Education Goal:Patient/caregive r will demonstrate ability to obtain, store, identify and administer ordered medications, keep accurate medication list in home, and adhere to medication schedule Completed Patient instructed on importance of keeping accurate medication list in home and adhering to medication schedule. Risk of Sepsis Description: Patient is at risk for sepsis. Monitor closely for s/s of sepsis. Problem:Sepsis Goal:Patient/caregive r will be able to identify signs/symptoms of sepsis infection and will verbalize actions to take if suspected Completed SPO2 Description: Notify Dr. Holliday if pulse ox is <92% at rest. Problem:Physician Specific Parameters Goal:Patient to maintain parameters within physician-specified ranges Completed Instruct on individual fall risk factors and strategies to prevent falls and injuries caused by falls. Problem:Risk for Falls Goal:Manage Risk for falls Completed PT: Patient instructed on Managing Impaired Functional Mobility: Use assistive device(s): Walker Managing Pain Instruct on pain and instruct on strategies to control pain Problem:Pain Goal:Manage Pain Completed patient instructed on techniques to control pain including Non-Pharmacological measures; rest, positioning/elevation and mobility/therapeutic exercise. Opioids- Instruct on high risk medication Problem:High Risk Medications Goal:Patient/caregive r will teach back high risk medication side effect and precaution education Completed patient instructed on the following: Possible side effects of opioid medication including sedation, decreased rate of breathing, and constipation. Instructed on reporting over sedation to prescribing physician, practice deep breathing techniques every hour while awake, and prevention of constipation by increasing water and fiber intake, increase activity as tolerated, and use stool softener as prescribed. Only take opioids as prescribed, do not share your medications, and take proper precautions in storing and properly disposing of opioids once no longer needed. Follow providers guidelines for driving and weaning from prescribed opioid. Instruct on final discharge plan and deliver discharge instructions Problem:Discharge Goal:Manage discharge planning Completed Delivered Discharge plan: Discharge plan discussed with patient for plan for transition to: outpatient therapy Determine patient's Advance Directive Status Description: Patient does have advance directives. Patient's Advance Directives determined to be available in Home Healthcare DPOA and Living Will. Problem:Advance Directives Goal:Patient/caregive r will make healthcare providers aware of Advance Directives Completed Discussed Advance Directives with Patient and/or Caregiver. Referred patient to Home Care handbook for further information on Healthcare DPOA & Living Will. Physical Therapy Aerobic Capacity Training Problem:PT Impaired Aerobic Capacity Goal:Improved Aerobic Capacity Completed patient instructed on utilization of the Rate of Percieved Exertion (RPE) scale, to not exceed 3-6/10 indicating moderate to heavy intensity of activity. Developed, implemented, and instructed patient on physical therapy interventions completing 3 minutes of continuous activity. Physical Therapy Therapeutic Exercises Problem:PT Impaired muscle performance and/or ROM Goal:Improved Muscle Performance and/or ROM Completed patient instructed on strengthening and range of motion exercises including ankle pumps, quad sets, glut sets, slf, heel slides, seated chair scoots with verbal cues for sequence. patient instructed to perform home exercise program twice a day Physical Therapy Transfer Training Problem:PT Impaired mobility Goal:Improved Transfers Completed Transfer training and instruction to patient on safe transfers to and from bed, chair and toilet with supervision and verbal cues for sequence. Physical Therapy Bed Mobility Training Problem:PT Impaired mobility Goal:Improved Bed Mobility Completed Bed mobility training and instruction to patient, including rolling, supine<>sit and repositioning self with supervision and verbal cues for sequence. Physical Therapy Gait Training Problem:PT Impaired gait Goal:Improved Gait Completed Gait training and instruction to patient on safe ambulation with front wheeled walker for 50 feet with supervision, with verbal cues for corrections of gait deviations including sequence. Physical Therapy Balance Training Problem:PT Impaired balance Goal:Improved Balance Completed Developed, implemented, and instructed patient on standing balance exercises including ambulation with fww. Instruct on orthopedic precautions and weight bearing restrictions Description: Orthopedic precautions including left total knee: no knee flexed over pillow at rest and no kneeling. Weight bearing restrictions include: WBAT of involved extremity. Problem:PT Orthopedic Condition Goal:Manage Orthopedic Condition Completed patient instructed on orthopedic precautions and weight bearing restrictions. Instruct on management of edema Problem:PT Orthopedic Condition Goal:Manage Orthopedic Condition Completed Instruct patient on management of edema including elevation of left knee above the level of the heart. Physical therapy to perform surgical incision/wound management Description: Removal of post-op dressing on 03/23/22. If no drainage is present, leave open to air; if drainage is present, cover with clean dressing and contact provider and PT bilingual case manager. Problem:PT Orthopedic Condition Goal:Manage Orthopedic Condition Completed Intervention completed this date. Instruct on self-management of post surgical and/or non-surgical orthopedic intervention Problem:PT Orthopedic Condition Goal:Manage Orthopedic Condition Completed patient instructed on managagement of orthopedic condition. Instruct and educate on knowledge deficits Problem:PT Learning Assessment Goal:Demonstrate understanding of education Completed patient verbalize and/or demonstrate understanding of physical therapy education including home exercise program, pain management, fall prevention strategies, home safety and functional activity. Education methods include: verbal cues. Further education required to improve knowledge and compliance with home exercise program, orthopedic condition management, fall prevention strategies, home safety and functional activity. [facility] Visit Details Visit Type -PT CASE MANAGEME NT VISIT Discipline -Physical Therapy Problems Problem Description Start Date Status Goals Interve ntions Medication Education Disciplines: Skilled Services 03/18/2022 Active 1 goal linked to scheduled/document ed intervention 1 goal intervention scheduled/document ed in this visit Sepsis Disciplines: Skilled Services 03/18/2022 Active 1 goal linked to scheduled/document ed intervention 1 goal intervention scheduled/document ed in this visit Physician Specific Parameters Disciplines: Skilled Services 03/18/2022 Active 1 goal linked to scheduled/document ed intervention 1 goal intervention scheduled/document ed in this visit Risk for Falls Disciplines: Skilled Services 03/18/2022 Active 1 goal linked to scheduled/document ed intervention 1 goal intervention scheduled/document ed in this visit Pain Disciplines: Skilled Services 03/18/2022 Active 1 goal linked to scheduled/document ed intervention 1 goal intervention scheduled/document ed in this visit High Risk Medications Disciplines: Skilled Services 03/18/2022 Active 1 goal linked to scheduled/document ed intervention 1 goal intervention scheduled/document ed in this visit PT Impaired muscle performance and/or ROM Disciplines: PT 03/18/2022 Active 1 goal linked to scheduled/document ed intervention 1 goal intervention scheduled/document ed in this visit PT Impaired mobility Disciplines: PT 03/18/2022 Active 2 goals linked to scheduled/document ed interventions 2 goal interventions scheduled/document ed in this visit PT Impaired gait Disciplines: PT 03/18/2022 Active 2 goals linked to scheduled/document ed interventions 2 goal interventions scheduled/document ed in this visit PT Orthopedic Condition Disciplines: PT 03/18/2022 Active 1 goal linked to scheduled/document ed intervention 3 goal interventions scheduled/document ed in this visit PT Learning Assessment Disciplines: PT 03/18/2022 Active 1 goal linked to scheduled/document ed intervention 1 goal intervention scheduled/document ed in this visit Goals Goal Associated Problem Outcome Goal Met? Visit Notes Patient/caregiver will demonstrate ability to obtain, store, identify and administer ordered medications, keep accurate medication list in home, and adhere to medication schedule Medication Education No Patient/caregiver will be able to identify signs/symptoms of sepsis infection and will verbalize actions to take if suspected Sepsis No Patient to maintain parameters within physician-specified ranges Physician Specific Parameters No Manage Risk for falls Description: Patient/caregiver will verbalize knowledge of individualized fall prevention strategies by 04/08/22. Risk for Falls No Manage Pain Description: Patient/caregiver will verbalize knowledge and understanding of appropriate techniques to control pain, including non-pharmacological techniques. Patient will verbalize or demonstrate an acceptable level of pain as evidenced by a pain score of 0-2/10 and improvement in ability to perform activities of daily living to be achieved by 04/08/22. Pain No Patient/caregiver will teach back high risk medication side effect and precaution education High Risk Medications No Improved Muscle Performance and/or ROM Description: LTG: Patient will demonstrate improved muscle performance to meet functional goals as evidenced by ability to tolerate 8 mins of standing activity, to be achieved by 04/08/22. LTG: Patient and/or caregiver will verbalize/demonstrate independence with home exercise program, to improve functional mobility, to be achieved by 04/08/22. LTG: Patient will demonstrate improved left knee passive range of motion to 0-110 degrees, to meet functional goals, to be achieved by 04/08/22. PT Impaired muscle performance and/or ROM No Improved Transfers Description: LTG: Patient will demonstrate safe transfers to/from bed, chair and toilet independently with AD, to be achieved by 04/08/22. PT Impaired mobility No Improved Bed Mobility Description: STG: Patient will demonstrate improved bed mobility and ability to position self independently to be achieved by 04/01/22. PT Impaired mobility No Improved Stair Climbing Description: LTG: Patient will demonstrate improved stair negotiation as evidenced by ascend/descend 14 steps with railing independently, to safely access all areas of the home, to be achieved by 04/08/22. PT Impaired gait No Improved Gait Description: LTG: Patient will demonstrate improved gait ability as evidenced by ambulation 200 feet with single point cane independently with AD, to return to safe household ambulation, in order to reach car in the driveway, to be achieved by 04/08/22. PT Impaired gait No Manage Orthopedic Condition Description: Improve patient and/or caregiver understanding of post surgical and/or non-surgical orthopedic intervention management as evidenced by patient and/or caregiver able to verbalize, demonstrate, and teach back instruction, to be achieved by 04/08/22. PT Orthopedic Condition No Demonstrate understanding of education Description: Patient and/or caregiver will understand educational instruction to be achieved by 04/08/22. PT Learning Assessment No Interventions Intervention Associated Problem/Goal Status Variance Visit Notes Medication Education Description: Evaluate/instruct patient/caregiver on obtaining, storing, identifying and administering ordered medications as well as keeping accurate medication list in the home and adhereing to medication schedule Problem:Medication Education Goal:Patient/caregive r will demonstrate ability to obtain, store, identify and administer ordered medications, keep accurate medication list in home, and adhere to medication schedule Completed Patient instructed on importance of keeping accurate medication list in home and adhering to medication schedule. Risk of Sepsis Description: Patient is at risk for sepsis. Monitor closely for s/s of sepsis. Problem:Sepsis Goal:Patient/caregive r will be able to identify signs/symptoms of sepsis infection and will verbalize actions to take if suspected Completed SPO2 Description: Notify Dr. Holliday if pulse ox is <92% at rest. Problem:Physician Specific Parameters Goal:Patient to maintain parameters within physician-specified ranges Completed Instruct on individual fall risk factors and strategies to prevent falls and injuries caused by falls. Problem:Risk for Falls Goal:Manage Risk for falls Completed PT: Patient instructed on Eliminating Environmental Hazards: Keep pathways clear, Keep pets out of pathways and Remove unsafe rugs Managing Impaired Functional Mobility: Use assistive device(s): Walker and crutches and Caregiver to provide assist with: ADL/IADLs Managing Pain Instruct on pain and instruct on strategies to control pain Problem:Pain Goal:Manage Pain Completed patient instructed on techniques to control pain including Pharmacological measures and Non-Pharmacological measures; rest and positioning/elevation. Opioids- Instruct on high risk medication Problem:High Risk Medications Goal:Patient/caregive r will teach back high risk medication side effect and precaution education Completed patient instructed on the following: Possible side effects of opioid medication including sedation, decreased rate of breathing, and constipation. Instructed on reporting over sedation to prescribing physician, practice deep breathing techniques every hour while awake, and prevention of constipation by increasing water and fiber intake, increase activity as tolerated, and use stool softener as prescribed. Only take opioids as prescribed, do not share your medications, and take proper precautions in storing and properly disposing of opioids once no longer needed. Follow providers guidelines for driving and weaning from prescribed opioid. Physical Therapy Therapeutic Exercises Problem:PT Impaired muscle performance and/or ROM Goal:Improved Muscle Performance and/or ROM Completed patient instructed on strengthening and range of motion exercises including Supine : GS,QS,HS, HIPADD, HIP BD, HEEL SLIDES, SAQ, X 10 reps supine passive knee ext x 5 min seated knee flexion to 99* with verbal cues for technique . patient instructed to perform home exercise program twice a day which included hourly ambulation . Physical Therapy Transfer Training Problem:PT Impaired mobility Goal:Improved Transfers Completed Transfer training and instruction to patient on safe transfers to and from chair with stand by assist and verbal cues for beter management of the leg rest- making sure it is locked down prior to getting up. Physical Therapy Bed Mobility Training Problem:PT Impaired mobility Goal:Improved Bed Mobility Completed Bed mobility training and instruction to patient, including supine<>sit with stand by assist and verbal cues for techniques for lifting leg in to the bed Physical Therapy Stair Training Problem:PT Impaired gait Goal:Improved Stair Climbing Completed Stair training and instruction to patient on safe stair climbing, ascend/descend 16 steps, with railing and with single crutch with stand by assist and verbal and tactile cues for technique . Physical Therapy Gait Training Problem:PT Impaired gait Goal:Improved Gait Completed Gait training and instruction to caregiver on safe ambulation with crutches for 100 feet with stand by assist, with verbal and tactile cues for corrections of gait deviations including developing heel toe sequence . Instruct on orthopedic precautions and weight bearing restrictions Description: Orthopedic precautions including left total knee: no knee flexed over pillow at rest and no kneeling. Weight bearing restrictions include: WBAT of involved extremity. Problem:PT Orthopedic Condition Goal:Manage Orthopedic Condition Completed patient instructed on orthopedic precautions and weight bearing restrictions. Instruct on management of edema Problem:PT Orthopedic Condition Goal:Manage Orthopedic Condition Completed Instruct patient on management of edema including elevation of LLE above the level of the heart and ice. Instruct on self-management of post surgical and/or non-surgical orthopedic intervention Problem:PT Orthopedic Condition Goal:Manage Orthopedic Condition Completed patient instructed on managagement of orthopedic condition, signs and symptoms of infection, signs and symptoms of DVT/PE, follow provider guidance for showering and instructed on when to call provider. Instruct and educate on knowledge deficits Problem:PT Learning Assessment Goal:Demonstrate understanding of education Completed patient verbalize and/or demonstrate understanding of physical therapy education including home exercise program, surgical precautions, pain management, home safety and functional activity. Education methods include: verbal cues. Further education required to improve knowledge and compliance with home exercise program, surgical precautions, pain management, fall prevention strategies and functional activity. 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 CHANGER ROUTINE Discipline -Physical Therapy Problems Problem Description Start Date Status Goals Interve ntions Medication Education Disciplines: Skilled Services 03/18/2022 Active 1 goal linked to scheduled/document ed intervention 1 goal intervention scheduled/document ed in this visit Sepsis Disciplines: Skilled Services 03/18/2022 Active 1 goal linked to scheduled/document ed intervention 1 goal intervention scheduled/document ed in this visit Physician Specific Parameters Disciplines: Skilled Services 03/18/2022 Active 1 goal linked to scheduled/document ed intervention 1 goal intervention scheduled/document ed in this visit Risk for Falls Disciplines: Skilled Services 03/18/2022 Active 1 goal linked to scheduled/document ed intervention 1 goal intervention scheduled/document ed in this visit Pain Disciplines: Skilled Services 03/18/2022 Active 1 goal linked to scheduled/document ed intervention 1 goal intervention scheduled/document ed in this visit Discharge Disciplines: Skilled Services 03/18/2022 Active 1 goal linked to scheduled/document ed intervention 1 goal intervention scheduled/document ed in this visit PT Impaired Aerobic Capacity Disciplines: PT 03/18/2022 Active 1 goal linked to scheduled/document ed intervention 1 goal intervention scheduled/document ed in this visit PT Impaired muscle performance and/or ROM Disciplines: PT 03/18/2022 Active 1 goal linked to scheduled/document ed intervention 1 goal intervention scheduled/document ed in this visit PT Impaired mobility Disciplines: PT 03/18/2022 Active 1 goal linked to scheduled/document ed intervention 1 goal intervention scheduled/document ed in this visit PT Impaired gait Disciplines: PT 03/18/2022 Active 1 goal linked to scheduled/document ed intervention 1 goal intervention scheduled/document ed in this visit PT Impaired balance Disciplines: PT 03/18/2022 Active 1 goal linked to scheduled/document ed intervention 1 goal intervention scheduled/document ed in this visit PT Orthopedic Condition Disciplines: PT 03/18/2022 Active 1 goal linked to scheduled/document ed intervention 4 goal interventions scheduled/document ed in this visit PT Learning Assessment Disciplines: PT 03/18/2022 Active 1 goal linked to scheduled/document ed intervention 1 goal intervention scheduled/document ed in this visit Goals Goal Associated Problem Outcome Goal Met? Visit Notes Patient/caregiver will demonstrate ability to obtain, store, identify and administer ordered medications, keep accurate medication list in home, and adhere to medication schedule Medication Education No Patient/caregiver will be able to identify signs/symptoms of sepsis infection and will verbalize actions to take if suspected Sepsis No Patient to maintain parameters within physician-specified ranges Physician Specific Parameters No Manage Risk for falls Description: Patient/caregiver will verbalize knowledge of individualized fall prevention strategies by 04/08/22. Risk for Falls No Manage Pain Description: Patient/caregiver will verbalize knowledge and understanding of appropriate techniques to control pain, including non-pharmacological techniques. Patient will verbalize or demonstrate an acceptable level of pain as evidenced by a pain score of 0-2/10 and improvement in ability to perform activities of daily living to be achieved by 04/08/22. Pain No Manage discharge planning Description: Patient/caregiver will verbalize understanding of ongoing discharge plan provided related to disease management, arrangements for outpatient and/or community services, obtaining medications, supplies, and DME, as needed. Discharge No Improved Aerobic Capacity Description: LTG: Patient will demonstrate improved aerobic capacity to meet functional goals as evidenced by Rate of Percieved Exertion (RPE) of 0-2/10 during knee ROM activity, to be achieved by 04/08/22. PT Impaired Aerobic Capacity No Improved Muscle Performance and/or ROM Description: LTG: Patient will demonstrate improved muscle performance to meet functional goals as evidenced by ability to tolerate 8 mins of standing activity, to be achieved by 04/08/22. LTG: Patient and/or caregiver will verbalize/demonstrate independence with home exercise program, to improve functional mobility, to be achieved by 04/08/22. LTG: Patient will demonstrate improved left knee passive range of motion to 0-110 degrees, to meet functional goals, to be achieved by 04/08/22. PT Impaired muscle performance and/or ROM No Improved Transfers Description: LTG: Patient will demonstrate safe transfers to/from bed, chair and toilet independently with AD, to be achieved by 04/08/22. PT Impaired mobility No Improved Gait Description: LTG: Patient will demonstrate improved gait ability as evidenced by ambulation 200 feet with single point cane independently with AD, to return to safe household ambulation, in order to reach car in the driveway, to be achieved by 04/08/22. PT Impaired gait No Improved Balance Description: LTG: Patient will demonstrate improved standing balance to meet functional goals as evidenced by TUG score of 22 to be achieved by 04/08/22. PT Impaired balance No Manage Orthopedic Condition Description: Improve patient and/or caregiver understanding of post surgical and/or non-surgical orthopedic intervention management as evidenced by patient and/or caregiver able to verbalize, demonstrate, and teach back instruction, to be achieved by 04/08/22. PT Orthopedic Condition No Demonstrate understanding of education Description: Patient and/or caregiver will understand educational instruction to be achieved by 04/08/22. PT Learning Assessment No Interventions Intervention Associated Problem/Goal Status Variance Visit Notes Medication Education Description: Evaluate/instruct patient/caregiver on obtaining, storing, identifying and administering ordered medications as well as keeping accurate medication list in the home and adhereing to medication schedule Problem:Medication Education Goal:Patient/caregive r will demonstrate ability to obtain, store, identify and administer ordered medications, keep accurate medication list in home, and adhere to medication schedule Completed Patient instructed on importance of keeping accurate medication list in home, adhering to medication schedule and how to order refills. Risk of Sepsis Description: Patient is at risk for sepsis. Monitor closely for s/s of sepsis. Problem:Sepsis Goal:Patient/caregive r will be able to identify signs/symptoms of sepsis infection and will verbalize actions to take if suspected Completed SPO2 Description: Notify Dr. Holliday if pulse ox is <92% at rest. Problem:Physician Specific Parameters Goal:Patient to maintain parameters within physician-specified ranges Completed Instruct on individual fall risk factors and strategies to prevent falls and injuries caused by falls. Problem:Risk for Falls Goal:Manage Risk for falls Completed PT: Patient instructed on Managing Impaired Functional Mobility: Use assistive device(s): crutches Instruct on pain and instruct on strategies to control pain Problem:Pain Goal:Manage Pain Completed patient instructed on techniques to control pain including Pharmacological measures and Non-Pharmacological measures; positioning/elevation and use of thermal modalities, apply ice to affected area for the following prescribed frequency: several times/day. Instruct on ongoing discharge plan Problem:Discharge Goal:Manage discharge planning Completed Ongoing Discharge plan: Discharge plan discussed with patient including frequency and duration for home PT and plan for transition to: outpatient therapy. Physical Therapy Aerobic Capacity Training Problem:PT Impaired Aerobic Capacity Goal:Improved Aerobic Capacity Completed patient instructed on utilization of the Rate of Percieved Exertion (RPE) scale, to not exceed 3-6/10 indicating moderate to heavy intensity of activity. Developed, implemented, and instructed patient on physical therapy interventions completing 3-5 minutes of continuous activity. Physical Therapy Therapeutic Exercises Problem:PT Impaired muscle performance and/or ROM Goal:Improved Muscle Performance and/or ROM Completed patient instructed on strengthening and range of motion exercises including ankle pumps, quad and glut sets, hip abd and adduction, saq and heel slides x's 10 each. seated heel slides and step flexion stretch x's 10 with 5sec hold. supine extension hang x's 5min . Standing: calf raises and hamstring curls x's 10 each with verbal and visual cues for correct form. patient instructed to perform home exercise program twice a day which included step flexion stretch. Physical Therapy Transfer Training Problem:PT Impaired mobility Goal:Improved Transfers Completed Transfer training and instruction to patient on safe transfers to and from bed and chair with supervision and verbal cues for safety. Physical Therapy Gait Training Problem:PT Impaired gait Goal:Improved Gait Completed Gait training and instruction to patient on safe ambulation with crutches for 2x's 80 feet with supervision, with verbal cues for corrections of gait deviations including increased WB on LLE and for heel to toe pattern. Physical Therapy Balance Training Problem:PT Impaired balance Goal:Improved Balance Completed Developed, implemented, and instructed patient on standing balance exercises including standing exercises and crutch training. Instruct on orthopedic precautions and weight bearing restrictions Description: Orthopedic precautions including left total knee: no knee flexed over pillow at rest and no kneeling. Weight bearing restrictions include: WBAT of involved extremity. Problem:PT Orthopedic Condition Goal:Manage Orthopedic Condition Completed patient instructed on orthopedic precautions. Instruct on management of edema Problem:PT Orthopedic Condition Goal:Manage Orthopedic Condition Completed Instruct patient on management of edema including elevation of LLE above the level of the heart and ice. Physical therapy to perform surgical incision/wound management Description: Removal of post-op dressing on 03/23/22. If no drainage is present, leave open to air; if drainage is present, cover with clean dressing and contact provider and PT bilingual case manager. Problem:PT Orthopedic Condition Goal:Manage Orthopedic Condition Completed Intervention completed this date.. With patients consent, picture obtained and uploaded to chart. No concerns Instruct on self-management of post surgical and/or non-surgical orthopedic intervention Problem:PT Orthopedic Condition Goal:Manage Orthopedic Condition Completed patient instructed on incision care: no lotions/creams or rubbing, signs and symptoms of infection, signs and symptoms of DVT/PE, follow provider guidance for showering , instructed on when to call provider and instructed on when to call 911. Instruct and educate on knowledge deficits Problem:PT Learning Assessment Goal:Demonstrate understanding of education Completed patient verbalize and/or demonstrate understanding of physical therapy education including home exercise program and pain management. Education methods include: verbal cues. Further education required to improve knowledge and compliance with home exercise program. 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 CHANGER ROUTINE Discipline -Physical Therapy Problems Problem Description Start Date Status Goals Interve ntions Medication Education Disciplines: Skilled Services 03/18/2022 Active 1 goal linked to scheduled/document ed intervention 1 goal intervention scheduled/document ed in this visit Sepsis Disciplines: Skilled Services 03/18/2022 Active 1 goal linked to scheduled/document ed intervention 1 goal intervention scheduled/document ed in this visit Physician Specific Parameters Disciplines: Skilled Services 03/18/2022 Active 1 goal linked to scheduled/document ed intervention 1 goal intervention scheduled/document ed in this visit Risk for Falls Disciplines: Skilled Services 03/18/2022 Active 1 goal linked to scheduled/document ed intervention 1 goal intervention scheduled/document ed in this visit Pain Disciplines: Skilled Services 03/18/2022 Active 1 goal linked to scheduled/document ed intervention 1 goal intervention scheduled/document ed in this visit High Risk Medications Disciplines: Skilled Services 03/18/2022 Active 1 goal linked to scheduled/document ed intervention 1 goal intervention scheduled/document ed in this visit Discharge Disciplines: Skilled Services 03/18/2022 Active 1 goal linked to scheduled/document ed intervention 1 goal intervention scheduled/document ed in this visit PT Impaired muscle performance and/or ROM Disciplines: PT 03/18/2022 Active 1 goal linked to scheduled/document ed intervention 1 goal intervention scheduled/document ed in this visit PT Impaired gait Disciplines: PT 03/18/2022 Active 2 goals linked to scheduled/document ed interventions 2 goal interventions scheduled/document ed in this visit PT Impaired balance Disciplines: PT 03/18/2022 Active 1 goal linked to scheduled/document ed intervention 1 goal intervention scheduled/document ed in this visit PT Orthopedic Condition Disciplines: PT 03/18/2022 Active 1 goal linked to scheduled/document ed intervention 3 goal interventions scheduled/document ed in this visit PT Learning Assessment Disciplines: PT 03/18/2022 Active 1 goal linked to scheduled/document ed intervention 1 goal intervention scheduled/document ed in this visit Goals Goal Associated Problem Outcome Goal Met? Visit Notes Patient/caregiver will demonstrate ability to obtain, store, identify and administer ordered medications, keep accurate medication list in home, and adhere to medication schedule Medication Education No Patient/caregiver will be able to identify signs/symptoms of sepsis infection and will verbalize actions to take if suspected Sepsis No Patient to maintain parameters within physician-specified ranges Physician Specific Parameters No Manage Risk for falls Description: Patient/caregiver will verbalize knowledge of individualized fall prevention strategies by 04/08/22. Risk for Falls No Manage Pain Description: Patient/caregiver will verbalize knowledge and understanding of appropriate techniques to control pain, including non-pharmacological techniques. Patient will verbalize or demonstrate an acceptable level of pain as evidenced by a pain score of 0-2/10 and improvement in ability to perform activities of daily living to be achieved by 04/08/22. Pain No Patient/caregiver will teach back high risk medication side effect and precaution education High Risk Medications No Manage discharge planning Description: Patient/caregiver will verbalize understanding of ongoing discharge plan provided related to disease management, arrangements for outpatient and/or community services, obtaining medications, supplies, and DME, as needed. Discharge No Improved Muscle Performance and/or ROM Description: LTG: Patient will demonstrate improved muscle performance to meet functional goals as evidenced by ability to tolerate 8 mins of standing activity, to be achieved by 04/08/22. LTG: Patient and/or caregiver will verbalize/demonstrate independence with home exercise program, to improve functional mobility, to be achieved by 04/08/22. LTG: Patient will demonstrate improved left knee passive range of motion to 0-110 degrees, to meet functional goals, to be achieved by 04/08/22. PT Impaired muscle performance and/or ROM No Improved Stair Climbing Description: LTG: Patient will demonstrate improved stair negotiation as evidenced by ascend/descend 14 steps with railing independently, to safely access all areas of the home, to be achieved by 04/08/22. PT Impaired gait No Improved Gait Description: LTG: Patient will demonstrate improved gait ability as evidenced by ambulation 200 feet with single point cane independently with AD, to return to safe household ambulation, in order to reach car in the driveway, to be achieved by 04/08/22. PT Impaired gait No Improved Balance Description: LTG: Patient will demonstrate improved standing balance to meet functional goals as evidenced by TUG score of 22 to be achieved by 04/08/22. PT Impaired balance No Manage Orthopedic Condition Description: Improve patient and/or caregiver understanding of post surgical and/or non-surgical orthopedic intervention management as evidenced by patient and/or caregiver able to verbalize, demonstrate, and teach back instruction, to be achieved by 04/08/22. PT Orthopedic Condition No Demonstrate understanding of education Description: Patient and/or caregiver will understand educational instruction to be achieved by 04/08/22. PT Learning Assessment No Interventions Intervention Associated Problem/Goal Status Variance Visit Notes Medication Education Description: Evaluate/instruct patient/caregiver on obtaining, storing, identifying and administering ordered medications as well as keeping accurate medication list in the home and adhereing to medication schedule Problem:Medication Education Goal:Patient/caregive r will demonstrate ability to obtain, store, identify and administer ordered medications, keep accurate medication list in home, and adhere to medication schedule Completed Patient instructed on importance of keeping accurate medication list in home. Risk of Sepsis Description: Patient is at risk for sepsis. Monitor closely for s/s of sepsis. Problem:Sepsis Goal:Patient/caregive r will be able to identify signs/symptoms of sepsis infection and will verbalize actions to take if suspected Completed SPO2 Description: Notify Dr. Holliday if pulse ox is <92% at rest. Problem:Physician Specific Parameters Goal:Patient to maintain parameters within physician-specified ranges Completed Instruct on individual fall risk factors and strategies to prevent falls and injuries caused by falls. Problem:Risk for Falls Goal:Manage Risk for falls Completed PT: Patient instructed on Eliminating Environmental Hazards: Keep pathways clear Instruct on pain and instruct on strategies to control pain Problem:Pain Goal:Manage Pain Completed patient instructed on techniques to control pain including Pharmacological measures and Non-Pharmacological measures; positioning/elevation and use of thermal modalities, apply ice to affected area for the following prescribed frequency: several times/day. Opioids- Instruct on high risk medication Problem:High Risk Medications Goal:Patient/caregive r will teach back high risk medication side effect and precaution education Completed patient instructed on the following: Possible side effects of opioid medication including sedation, decreased rate of breathing, and constipation. Instructed on reporting over sedation to prescribing physician, practice deep breathing techniques every hour while awake, and prevention of constipation by increasing water and fiber intake, increase activity as tolerated, and use stool softener as prescribed. Only take opioids as prescribed, do not share your medications, and take proper precautions in storing and properly disposing of opioids once no longer needed. Follow providers guidelines for driving and weaning from prescribed opioid. Instruct on ongoing discharge plan Problem:Discharge Goal:Manage discharge planning Completed Ongoing Discharge plan: Discharge plan discussed with patient including frequency and duration for home PT and plan for transition to: outpatient therapy. Physical Therapy Therapeutic Exercises Problem:PT Impaired muscle performance and/or ROM Goal:Improved Muscle Performance and/or ROM Completed patient instructed on strengthening and range of motion exercises including anklepumps, quad and glut sets, hip abd and add, saq, heel slides x's 15 each. supine extension hang x's 5min. standing: calf raises, luma hamsgtring curls and hip/knee flexion x's 10 each. step flexion stretch x's 10 and seated heel slides x's 10 with verbal and visual cues for correct form and pace. patient instructed to perform home exercise program twice a day which included above exercises. Physical Therapy Stair Training Problem:PT Impaired gait Goal:Improved Stair Climbing Completed Stair training and instruction to patient on safe stair climbing, ascend/descend 2 steps, with railing and with crutch with supervision and verbal cues for safety. Physical Therapy Gait Training Problem:PT Impaired gait Goal:Improved Gait Completed Gait training and instruction to patient on safe ambulation with crutch for 2x's 80 feet with supervision, with verbal cues for corrections of gait deviations including heel to toe pattern and increasing weight shift to LLE. Physical Therapy Balance Training Problem:PT Impaired balance Goal:Improved Balance Completed Developed, implemented, and instructed patient on standing balance exercises including standing exercises and 1 crutch training. Instruct on orthopedic precautions and weight bearing restrictions Description: Orthopedic precautions including left total knee: no knee flexed over pillow at rest and no kneeling. Weight bearing restrictions include: WBAT of involved extremity. Problem:PT Orthopedic Condition Goal:Manage Orthopedic Condition Completed patient instructed on orthopedic precautions. Instruct on management of edema Problem:PT Orthopedic Condition Goal:Manage Orthopedic Condition Completed Instruct patient on management of edema including ice Instruct on self-management of post surgical and/or non-surgical orthopedic intervention Problem:PT Orthopedic Condition Goal:Manage Orthopedic Condition Completed patient instructed on signs and symptoms of infection, signs and symptoms of DVT/PE, instructed on when to call provider and instructed on when to call 911. Instruct and educate on knowledge deficits Problem:PT Learning Assessment Goal:Demonstrate understanding of education Completed patient verbalize and/or demonstrate understanding of physical therapy education including home exercise program. Education methods include: verbal cues. Further education required to improve knowledge and compliance with home exercise program. 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 CHANGER ROUTINE Discipline -Physical Therapy Problems Problem Description Start Date Status Goals Interve ntions Medication Education Disciplines: Skilled Services 03/18/2022 Active 1 goal linked to scheduled/document ed intervention 1 goal intervention scheduled/document ed in this visit Sepsis Disciplines: Skilled Services 03/18/2022 Active 1 goal linked to scheduled/document ed intervention 1 goal intervention scheduled/document ed in this visit Physician Specific Parameters Disciplines: Skilled Services 03/18/2022 Active 1 goal linked to scheduled/document ed intervention 1 goal intervention scheduled/document ed in this visit Risk for Falls Disciplines: Skilled Services 03/18/2022 Active 1 goal linked to scheduled/document ed intervention 1 goal intervention scheduled/document ed in this visit Pain Disciplines: Skilled Services 03/18/2022 Active 1 goal linked to scheduled/document ed intervention 1 goal intervention scheduled/document ed in this visit Discharge Disciplines: Skilled Services 03/18/2022 Active 1 goal linked to scheduled/document ed intervention 2 goal interventions scheduled/document ed in this visit PT Impaired Aerobic Capacity Disciplines: PT 03/18/2022 Active 1 goal linked to scheduled/document ed intervention 1 goal intervention scheduled/document ed in this visit PT Impaired muscle performance and/or ROM Disciplines: PT 03/18/2022 Active 1 goal linked to scheduled/document ed intervention 1 goal intervention scheduled/document ed in this visit PT Impaired gait Disciplines: PT 03/18/2022 Active 1 goal linked to scheduled/document ed intervention 1 goal intervention scheduled/document ed in this visit PT Impaired balance Disciplines: PT 03/18/2022 Active 1 goal linked to scheduled/document ed intervention 1 goal intervention scheduled/document ed in this visit PT Orthopedic Condition Disciplines: PT 03/18/2022 Active 1 goal linked to scheduled/document ed intervention 2 goal interventions scheduled/document ed in this visit PT Learning Assessment Disciplines: PT 03/18/2022 Active 1 goal linked to scheduled/document ed intervention 1 goal intervention scheduled/document ed in this visit Goals Goal Associated Problem Outcome Goal Met? Visit Notes Patient/caregiver will demonstrate ability to obtain, store, identify and administer ordered medications, keep accurate medication list in home, and adhere to medication schedule Medication Education No Patient/caregiver will be able to identify signs/symptoms of sepsis infection and will verbalize actions to take if suspected Sepsis No Patient to maintain parameters within physician-specified ranges Physician Specific Parameters No Manage Risk for falls Description: Patient/caregiver will verbalize knowledge of individualized fall prevention strategies by 04/08/22. Risk for Falls No Manage Pain Description: Patient/caregiver will verbalize knowledge and understanding of appropriate techniques to control pain, including non-pharmacological techniques. Patient will verbalize or demonstrate an acceptable level of pain as evidenced by a pain score of 0-2/10 and improvement in ability to perform activities of daily living to be achieved by 04/08/22. Pain No Manage discharge planning Description: Patient/caregiver will verbalize understanding of ongoing discharge plan provided related to disease management, arrangements for outpatient and/or community services, obtaining medications, supplies, and DME, as needed. Discharge No Improved Aerobic Capacity Description: LTG: Patient will demonstrate improved aerobic capacity to meet functional goals as evidenced by Rate of Percieved Exertion (RPE) of 0-2/10 during knee ROM activity, to be achieved by 04/08/22. PT Impaired Aerobic Capacity No Improved Muscle Performance and/or ROM Description: LTG: Patient will demonstrate improved muscle performance to meet functional goals as evidenced by ability to tolerate 8 mins of standing activity, to be achieved by 04/08/22. LTG: Patient and/or caregiver will verbalize/demonstrate independence with home exercise program, to improve functional mobility, to be achieved by 04/08/22. LTG: Patient will demonstrate improved left knee passive range of motion to 0-110 degrees, to meet functional goals, to be achieved by 04/08/22. PT Impaired muscle performance and/or ROM No Improved Gait Description: LTG: Patient will demonstrate improved gait ability as evidenced by ambulation 200 feet with single point cane independently with AD, to return to safe household ambulation, in order to reach car in the driveway, to be achieved by 04/08/22. PT Impaired gait No Improved Balance Description: LTG: Patient will demonstrate improved standing balance to meet functional goals as evidenced by TUG score of 22 to be achieved by 04/08/22. PT Impaired balance No Manage Orthopedic Condition Description: Improve patient and/or caregiver understanding of post surgical and/or non-surgical orthopedic intervention management as evidenced by patient and/or caregiver able to verbalize, demonstrate, and teach back instruction, to be achieved by 04/08/22. PT Orthopedic Condition No Demonstrate understanding of education Description: Patient and/or caregiver will understand educational instruction to be achieved by 04/08/22. PT Learning Assessment No Interventions Intervention Associated Problem/Goal Status Variance Visit Notes Medication Education Description: Evaluate/instruct patient/caregiver on obtaining, storing, identifying and administering ordered medications as well as keeping accurate medication list in the home and adhereing to medication schedule Problem:Medication Education Goal:Patient/caregive r will demonstrate ability to obtain, store, identify and administer ordered medications, keep accurate medication list in home, and adhere to medication schedule Completed Patient instructed on importance of keeping accurate medication list in home. Risk of Sepsis Description: Patient is at risk for sepsis. Monitor closely for s/s of sepsis. Problem:Sepsis Goal:Patient/caregive r will be able to identify signs/symptoms of sepsis infection and will verbalize actions to take if suspected Completed SPO2 Description: Notify Dr. Holliday if pulse ox is <92% at rest. Problem:Physician Specific Parameters Goal:Patient to maintain parameters within physician-specified ranges Completed Instruct on individual fall risk factors and strategies to prevent falls and injuries caused by falls. Problem:Risk for Falls Goal:Manage Risk for falls Completed PT: Patient instructed on Managing Impaired Functional Mobility: Use assistive device(s): Cane or crutch Instruct on pain and instruct on strategies to control pain Problem:Pain Goal:Manage Pain Completed patient instructed on techniques to control pain including Pharmacological measures and Non-Pharmacological measures; use of thermal modalities, apply ice to affected area for the following prescribed frequency: several times/day. Deliver [facility] Problem:Discharge Goal:Manage discharge planning Completed Delivered [facility] on 03/30/22 for discharge date of 04/03/22. Instruct on ongoing discharge plan Problem:Discharge Goal:Manage discharge planning Completed Ongoing Discharge plan: Discharge plan discussed with patient including frequency and duration for home PT and plan for transition to: outpatient therapy. Physical Therapy Aerobic Capacity Training Problem:PT Impaired Aerobic Capacity Goal:Improved Aerobic Capacity Completed patient instructed on utilization of the Rate of Percieved Exertion (RPE) scale, to not exceed 3-6/10 indicating moderate to heavy intensity of activity. Developed, implemented, and instructed patient on physical therapy interventions completing 5 minutes of continuous activity. Physical Therapy Therapeutic Exercises Problem:PT Impaired muscle performance and/or ROM Goal:Improved Muscle Performance and/or ROM Completed patient instructed on strengthening and range of motion exercises including standing: luma calf raises, hamstring curls, hip flexion and abduction and mini sits x's 15 each. seated extension hang x's 5 min, seated heelslides x's 10 and step flexion stretch x's 10 with 10sec hold with verbal and visual cues for correct form. patient instructed to perform home exercise program twice a day which included above exercises. Physical Therapy Gait Training Problem:PT Impaired gait Goal:Improved Gait Completed Gait training and instruction to patient on safe ambulation with crutch for 2x's 80 feet with stand by assist, with verbal cues for corrections of gait deviations including heel to toe pattern and to avoid ER of LLE. Physical Therapy Balance Training Problem:PT Impaired balance Goal:Improved Balance Completed Developed, implemented, and instructed patient on standing balance exercises including luma standing exercises. Instruct on management of edema Problem:PT Orthopedic Condition Goal:Manage Orthopedic Condition Completed Instruct patient on management of edema including elevation of LLE above the level of the heart and ice. Instruct on self-management of post surgical and/or non-surgical orthopedic intervention Problem:PT Orthopedic Condition Goal:Manage Orthopedic Condition Completed patient instructed on signs and symptoms of infection, signs and symptoms of DVT/PE, instructed on when to call provider and instructed on when to call 911. Instruct and educate on knowledge deficits Problem:PT Learning Assessment Goal:Demonstrate understanding of education Completed patient verbalize and/or demonstrate understanding of physical therapy education including home exercise program. Education methods include: verbal cues. Further education required to improve knowledge and compliance with home exercise program. 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 CHANGER ROUTINE Discipline -Physical Therapy Problems Problem Description Start Date Status Goals Interve ntions Medication Education Disciplines: Skilled Services 03/18/2022 Active 1 goal linked to scheduled/document ed intervention 1 goal intervention scheduled/document ed in this visit Sepsis Disciplines: Skilled Services 03/18/2022 Active 1 goal linked to scheduled/document ed intervention 1 goal intervention scheduled/document ed in this visit Physician Specific Parameters Disciplines: Skilled Services 03/18/2022 Active 1 goal linked to scheduled/document ed intervention 1 goal intervention scheduled/document ed in this visit Risk for Falls Disciplines: Skilled Services 03/18/2022 Active 1 goal linked to scheduled/document ed intervention 1 goal intervention scheduled/document ed in this visit Pain Disciplines: Skilled Services 03/18/2022 Active 1 goal linked to scheduled/document ed intervention 1 goal intervention scheduled/document ed in this visit Discharge Disciplines: Skilled Services 03/18/2022 Active 1 goal linked to scheduled/document ed intervention 1 goal intervention scheduled/document ed in this visit PT Impaired Aerobic Capacity Disciplines: PT 03/18/2022 Active 1 goal linked to scheduled/document ed intervention 1 goal intervention scheduled/document ed in this visit PT Impaired muscle performance and/or ROM Disciplines: PT 03/18/2022 Active 1 goal linked to scheduled/document ed intervention 1 goal intervention scheduled/document ed in this visit PT Impaired mobility Disciplines: PT 03/18/2022 Active 1 goal linked to scheduled/document ed intervention 1 goal intervention scheduled/document ed in this visit PT Impaired gait Disciplines: PT 03/18/2022 Active 2 goals linked to scheduled/document ed interventions 2 goal interventions scheduled/document ed in this visit PT Impaired balance Disciplines: PT 03/18/2022 Active 1 goal linked to scheduled/document ed intervention 1 goal intervention scheduled/document ed in this visit PT Orthopedic Condition Disciplines: PT 03/18/2022 Active 1 goal linked to scheduled/document ed intervention 2 goal interventions scheduled/document ed in this visit PT Learning Assessment Disciplines: PT 03/18/2022 Active 1 goal linked to scheduled/document ed intervention 1 goal intervention scheduled/document ed in this visit Goals Goal Associated Problem Outcome Goal Met? Visit Notes Patient/caregiver will demonstrate ability to obtain, store, identify and administer ordered medications, keep accurate medication list in home, and adhere to medication schedule Medication Education No Patient/caregiver will be able to identify signs/symptoms of sepsis infection and will verbalize actions to take if suspected Sepsis No Patient to maintain parameters within physician-specified ranges Physician Specific Parameters No Manage Risk for falls Description: Patient/caregiver will verbalize knowledge of individualized fall prevention strategies by 04/08/22. Risk for Falls No Manage Pain Description: Patient/caregiver will verbalize knowledge and understanding of appropriate techniques to control pain, including non-pharmacological techniques. Patient will verbalize or demonstrate an acceptable level of pain as evidenced by a pain score of 0-2/10 and improvement in ability to perform activities of daily living to be achieved by 04/08/22. Pain No Manage discharge planning Description: Patient/caregiver will verbalize understanding of ongoing discharge plan provided related to disease management, arrangements for outpatient and/or community services, obtaining medications, supplies, and DME, as needed. Discharge No Improved Aerobic Capacity Description: LTG: Patient will demonstrate improved aerobic capacity to meet functional goals as evidenced by Rate of Percieved Exertion (RPE) of 0-2/10 during knee ROM activity, to be achieved by 04/08/22. PT Impaired Aerobic Capacity No Improved Muscle Performance and/or ROM Description: LTG: Patient will demonstrate improved muscle performance to meet functional goals as evidenced by ability to tolerate 8 mins of standing activity, to be achieved by 04/08/22. LTG: Patient and/or caregiver will verbalize/demonstrate independence with home exercise program, to improve functional mobility, to be achieved by 04/08/22. LTG: Patient will demonstrate improved left knee passive range of motion to 0-110 degrees, to meet functional goals, to be achieved by 04/08/22. PT Impaired muscle performance and/or ROM No Improved Transfers Description: LTG: Patient will demonstrate safe transfers to/from bed, chair and toilet independently with AD, to be achieved by 04/08/22. PT Impaired mobility No Improved Stair Climbing Description: LTG: Patient will demonstrate improved stair negotiation as evidenced by ascend/descend 14 steps with railing independently, to safely access all areas of the home, to be achieved by 04/08/22. PT Impaired gait No Improved Gait Description: LTG: Patient will demonstrate improved gait ability as evidenced by ambulation 200 feet with single point cane independently with AD, to return to safe household ambulation, in order to reach car in the driveway, to be achieved by 04/08/22. PT Impaired gait No Improved Balance Description: LTG: Patient will demonstrate improved standing balance to meet functional goals as evidenced by TUG score of 22 to be achieved by 04/08/22. PT Impaired balance No Manage Orthopedic Condition Description: Improve patient and/or caregiver understanding of post surgical and/or non-surgical orthopedic intervention management as evidenced by patient and/or caregiver able to verbalize, demonstrate, and teach back instruction, to be achieved by 04/08/22. PT Orthopedic Condition No Demonstrate understanding of education Description: Patient and/or caregiver will understand educational instruction to be achieved by 04/08/22. PT Learning Assessment No Interventions Intervention Associated Problem/Goal Status Variance Visit Notes Medication Education Description: Evaluate/instruct patient/caregiver on obtaining, storing, identifying and administering ordered medications as well as keeping accurate medication list in the home and adhereing to medication schedule Problem:Medication Education Goal:Patient/caregive r will demonstrate ability to obtain, store, identify and administer ordered medications, keep accurate medication list in home, and adhere to medication schedule Completed Patient instructed on importance of keeping accurate medication list in home. Risk of Sepsis Description: Patient is at risk for sepsis. Monitor closely for s/s of sepsis. Problem:Sepsis Goal:Patient/caregive r will be able to identify signs/symptoms of sepsis infection and will verbalize actions to take if suspected Completed SPO2 Description: Notify Dr. Holliday if pulse ox is <92% at rest. Problem:Physician Specific Parameters Goal:Patient to maintain parameters within physician-specified ranges Completed Instruct on individual fall risk factors and strategies to prevent falls and injuries caused by falls. Problem:Risk for Falls Goal:Manage Risk for falls Completed PT: Patient instructed on Managing Impaired Functional Mobility: Use assistive device(s): Cane or crutch Instruct on pain and instruct on strategies to control pain Problem:Pain Goal:Manage Pain Completed patient instructed on techniques to control pain including Pharmacological measures and Non-Pharmacological measures; positioning/elevation and ice several times/day. Instruct on ongoing discharge plan Problem:Discharge Goal:Manage discharge planning Completed Ongoing Discharge plan: Discharge plan discussed with patient including frequency and duration for home PT and plan for transition to: outpatient therapy. Physical Therapy Aerobic Capacity Training Problem:PT Impaired Aerobic Capacity Goal:Improved Aerobic Capacity Completed patient instructed on utilization of the Rate of Percieved Exertion (RPE) scale, to not exceed 3-6/10 indicating moderate to heavy intensity of activity. Developed, implemented, and instructed patient on physical therapy interventions completing 5-6 minutes of continuous activity. Physical Therapy Therapeutic Exercises Problem:PT Impaired muscle performance and/or ROM Goal:Improved Muscle Performance and/or ROM Completed patient instructed on strengthening and range of motion exercises including luma standing: calf raises, hip extension,abd, flexion, hamstring curls, mini sits x's 15 each. supine extension hang x's 5min, step flexion stretch and seated heel slides x's 10 each with hold with verbal cues for slower pace .Stat bike 1/2 revolutions x's 5min patient instructed to perform home exercise program twice a day which included all above exercises. Physical Therapy Transfer Training Problem:PT Impaired mobility Goal:Improved Transfers Completed Transfer training and instruction to patient on safe transfers to and from chair with independent a Physical Therapy Stair Training Problem:PT Impaired gait Goal:Improved Stair Climbing Completed Stair training and instruction to patient on safe stair climbing, ascend/descend 2 steps, without railing and with cane with supervision and verbal cues for safety. Physical Therapy Gait Training Problem:PT Impaired gait Goal:Improved Gait Completed Gait training and instruction to patient on safe ambulation with crutch for 2x's 100 feet with supervision, with verbal cues for corrections of gait deviations including heel to toe to encourage end range extension and knee flexion. Physical Therapy Balance Training Problem:PT Impaired balance Goal:Improved Balance Completed Developed, implemented, and instructed patient on standing balance exercises including luma standing exercises and c1 crutch gait training. Instruct on management of edema Problem:PT Orthopedic Condition Goal:Manage Orthopedic Condition Completed Instruct patient on management of edema including elevation of LLE above the level of the heart and ice. Instruct on self-management of post surgical and/or non-surgical orthopedic intervention Problem:PT Orthopedic Condition Goal:Manage Orthopedic Condition Completed patient instructed on signs and symptoms of infection, signs and symptoms of DVT/PE, instructed on when to call provider and instructed on when to call 911. Instruct and educate on knowledge deficits Problem:PT Learning Assessment Goal:Demonstrate understanding of education Completed patient verbalize and/or demonstrate understanding of physical therapy education including home exercise program and pain management. Education methods include: verbal cues. Further education required to improve knowledge and compliance with home exercise program. [facility] Visit Details Visit Type -PT AGENCY DC W V ISIT Discipline -Physical Therapy Problems Problem Description Start Date Status Goals Interve ntions Medication Education Disciplines: Skilled Services 03/18/2022 Resolved on 04/03/2022 1 goal linked to scheduled/document ed intervention 1 goal intervention scheduled/document ed in this visit Sepsis Disciplines: Skilled Services 03/18/2022 Resolved on 04/03/2022 1 goal linked to scheduled/document ed intervention 1 goal intervention scheduled/document ed in this visit Physician Specific Parameters Disciplines: Skilled Services 03/18/2022 Resolved on 04/03/2022 1 goal linked to scheduled/document ed intervention 1 goal intervention scheduled/document ed in this visit Risk for Falls Disciplines: Skilled Services 03/18/2022 Resolved on 04/03/2022 1 goal linked to scheduled/document ed intervention 1 goal intervention scheduled/document ed in this visit Pain Disciplines: Skilled Services 03/18/2022 Resolved on 04/03/2022 1 goal linked to scheduled/document ed intervention 1 goal intervention scheduled/document ed in this visit High Risk Medications Disciplines: Skilled Services 03/18/2022 Resolved on 04/03/2022 1 goal linked to scheduled/document ed intervention 1 goal intervention scheduled/document ed in this visit Discharge Disciplines: Skilled Services 03/18/2022 Resolved on 04/03/2022 1 goal linked to scheduled/document ed intervention 1 goal intervention scheduled/document ed in this visit PT Impaired Aerobic Capacity Disciplines: PT 03/18/2022 Resolved on 04/03/2022 1 goal linked to scheduled/document ed intervention PT Impaired muscle performance and/or ROM Disciplines: PT 03/18/2022 Resolved on 04/03/2022 1 goal linked to scheduled/document ed intervention 1 goal intervention scheduled/document ed in this visit PT Impaired mobility Disciplines: PT 03/18/2022 Resolved on 04/03/2022 2 goals linked to scheduled/document ed interventions 2 goal interventions scheduled/document ed in this visit PT Impaired gait Disciplines: PT 03/18/2022 Resolved on 04/03/2022 2 goals linked to scheduled/document ed interventions 2 goal interventions scheduled/document ed in this visit PT Impaired balance Disciplines: PT 03/18/2022 Resolved on 04/03/2022 1 goal linked to scheduled/document ed intervention 1 goal intervention scheduled/document ed in this visit PT Orthopedic Condition Disciplines: PT 03/18/2022 Resolved on 04/03/2022 1 goal linked to scheduled/document ed intervention 3 goal interventions scheduled/document ed in this visit PT Learning Assessment Disciplines: PT 03/18/2022 Resolved on 04/03/2022 1 goal linked to scheduled/document ed intervention 1 goal intervention scheduled/document ed in this visit Goals Goal Associated Problem Outcome Goal Met? Visit Notes Patient/caregiver will demonstrate ability to obtain, store, identify and administer ordered medications, keep accurate medication list in home, and adhere to medication schedule Medication Education Completed Yes Patient/caregiver will be able to identify signs/symptoms of sepsis infection and will verbalize actions to take if suspected Sepsis Completed Yes Patient to maintain parameters within physician-specified ranges Physician Specific Parameters Completed Yes Manage Risk for falls Description: Patient/caregiver will verbalize knowledge of individualized fall prevention strategies by 04/08/22. Risk for Falls Completed Yes Manage Pain Description: Patient/caregiver will verbalize knowledge and understanding of appropriate techniques to control pain, including non-pharmacological techniques. Patient will verbalize or demonstrate an acceptable level of pain as evidenced by a pain score of 0-2/10 and improvement in ability to perform activities of daily living to be achieved by 04/08/22. Pain Completed Yes Patient/caregiver will teach back high risk medication side effect and precaution education High Risk Medications Completed Yes Manage discharge planning Description: Patient/caregiver will verbalize understanding of ongoing discharge plan provided related to disease management, arrangements for outpatient and/or community services, obtaining medications, supplies, and DME, as needed. Discharge Completed Yes Improved Aerobic Capacity Description: LTG: Patient will demonstrate improved aerobic capacity to meet functional goals as evidenced by Rate of Percieved Exertion (RPE) of 0-2/10 during knee ROM activity, to be achieved by 04/08/22. PT Impaired Aerobic Capacity Completed Yes Improved Muscle Performance and/or ROM Description: LTG: Patient will demonstrate improved muscle performance to meet functional goals as evidenced by ability to tolerate 8 mins of standing activity, to be achieved by 04/08/22. LTG: Patient and/or caregiver will verbalize/demonstrate independence with home exercise program, to improve functional mobility, to be achieved by 04/08/22. LTG: Patient will demonstrate improved left knee passive range of motion to 0-110 degrees, to meet functional goals, to be achieved by 04/08/22. PT Impaired muscle performance and/or ROM Completed Yes Improved Transfers Description: LTG: Patient will demonstrate safe transfers to/from bed, chair and toilet independently with AD, to be achieved by 04/08/22. PT Impaired mobility Completed Yes Improved Bed Mobility Description: STG: Patient will demonstrate improved bed mobility and ability to position self independently to be achieved by 04/01/22. PT Impaired mobility Completed Yes Improved Stair Climbing Description: LTG: Patient will demonstrate improved stair negotiation as evidenced by ascend/descend 14 steps with railing independently, to safely access all areas of the home, to be achieved by 04/08/22. PT Impaired gait Completed Yes Improved Gait Description: LTG: Patient will demonstrate improved gait ability as evidenced by ambulation 200 feet with single point cane independently with AD, to return to safe household ambulation, in order to reach car in the driveway, to be achieved by 04/08/22. PT Impaired gait Completed Yes Improved Balance Description: LTG: Patient will demonstrate improved standing balance to meet functional goals as evidenced by TUG score of 22 to be achieved by 04/08/22. PT Impaired balance Completed Yes Manage Orthopedic Condition Description: Improve patient and/or caregiver understanding of post surgical and/or non-surgical orthopedic intervention management as evidenced by patient and/or caregiver able to verbalize, demonstrate, and teach back instruction, to be achieved by 04/08/22. PT Orthopedic Condition Completed Yes Demonstrate understanding of education Description: Patient and/or caregiver will understand educational instruction to be achieved by 04/08/22. PT Learning Assessment Completed Yes Interventions Intervention Associated Problem/Goal Status Variance Visit Notes Medication Education Description: Evaluate/instruct patient/caregiver on obtaining, storing, identifying and administering ordered medications as well as keeping accurate medication list in the home and adhereing to medication schedule Problem:Medication Education Goal:Patient/caregive r will demonstrate ability to obtain, store, identify and administer ordered medications, keep accurate medication list in home, and adhere to medication schedule Completed Patient instructed on importance of keeping accurate medication list in home and adhering to medication schedule. Risk of Sepsis Description: Patient is at risk for sepsis. Monitor closely for s/s of sepsis. Problem:Sepsis Goal:Patient/caregive r will be able to identify signs/symptoms of sepsis infection and will verbalize actions to take if suspected Completed SPO2 Description: Notify Dr. Holliday if pulse ox is <92% at rest. Problem:Physician Specific Parameters Goal:Patient to maintain parameters within physician-specified ranges Completed Instruct on individual fall risk factors and strategies to prevent falls and injuries caused by falls. Problem:Risk for Falls Goal:Manage Risk for falls Completed PT: Patient instructed on Eliminating Environmental Hazards: Keep pathways clear and Remove unsafe rugs Managing Impaired Functional Mobility: Use assistive device(s): Cane and crutch Instruct on pain and instruct on strategies to control pain Problem:Pain Goal:Manage Pain Completed patient instructed on techniques to control pain including Pharmacological measures and Non-Pharmacological measures; rest, positioning/elevation and use of thermal modalities, apply ice to affected area Opioids- Instruct on high risk medication Problem:High Risk Medications Goal:Patient/caregive r will teach back high risk medication side effect and precaution education Completed patient instructed on the following: Possible side effects of opioid medication including sedation, decreased rate of breathing, and constipation. Instructed on reporting over sedation to prescribing physician, practice deep breathing techniques every hour while awake, and prevention of constipation by increasing water and fiber intake, increase activity as tolerated, and use stool softener as prescribed. Only take opioids as prescribed, do not share your medications, and take proper precautions in storing and properly disposing of opioids once no longer needed. Follow providers guidelines for driving and weaning from prescribed opioid. Instruct on final discharge plan and deliver discharge instructions Problem:Discharge Goal:Manage discharge planning Completed Delivered Discharge plan: Discharge plan discussed with patient for plan for transition to: outpatient therapy Physical Therapy Therapeutic Exercises Problem:PT Impaired muscle performance and/or ROM Goal:Improved Muscle Performance and/or ROM Completed patient instructed on strengthening and range of motion exercises including STANDING : HEEL RAISES, TOE RAISES , KNEE FLEX, HIP EXT, HIP FLEX, HIP ABD X 15 supine passive knee xt x 5 in -10 * seated knee [id number] with verbal cues for technique . patient instructed to perform home exercise program twice a day . Physical Therapy Transfer Training Problem:PT Impaired mobility Goal:Improved Transfers Completed ISAIAH transfers with safe/proper technique Physical Therapy Bed Mobility Training Problem:PT Impaired mobility Goal:Improved Bed Mobility Completed ISAIAH bed mobility Physical Therapy Stair Training Problem:PT Impaired gait Goal:Improved Stair Climbing Completed up and down 12 steps with rail + crutch and step together sequence Physical Therapy Gait Training Problem:PT Impaired gait Goal:Improved Gait Completed Indep amb with single crutch an dsteady recip pattern x 300 Physical Therapy Balance Training Problem:PT Impaired balance Goal:Improved Balance Completed pt demonstrates improved dynamic standing balance as evidenced by a TUG <15 Instruct on orthopedic precautions and weight bearing restrictions Description: Orthopedic precautions including left total knee: no knee flexed over pillow at rest and no kneeling. Weight bearing restrictions include: WBAT of involved extremity. Problem:PT Orthopedic Condition Goal:Manage Orthopedic Condition Completed patient instructed on orthopedic precautions and weight bearing restrictions. Instruct on management of edema Problem:PT Orthopedic Condition Goal:Manage Orthopedic Condition Completed Instruct patient on management of edema including elevation of LLE above the level of the heart and ice. Instruct on self-management of post surgical and/or non-surgical orthopedic intervention Problem:PT Orthopedic Condition Goal:Manage Orthopedic Condition Completed patient instructed on managagement of orthopedic condition, signs and symptoms of infection, signs and symptoms of DVT/PE and instructed on when to call provider. Instruct and educate on knowledge deficits Problem:PT Learning Assessment Goal:Demonstrate understanding of education Completed patient verbalize and/or demonstrate understanding of physical therapy education including home exercise program, orthopedic condition management, surgical precautions and pain management. Education methods include: verbal cues. documented in this encounter [facility] for referral (narrative)* Outpatient Procedure (Routine) - Pending Review Specialty Diagnoses / Procedures Referred By Carly castro Referred [facility] Diagnoses Pre-operative examination MYLENE (obstructive sleep apnea) Hypertension, essential Osteoarthritis of left knee, unspecified osteoarthritis type Benign non-nodular prostatic hyperplasia with lower urinary tract symptoms Urinary frequency Procedures ECG COMPLETE ECG ROUTINE ECG W/LEAST 12 LDS W/I&R Desirae Ibrahim PA-C [address] [place] [address] [facility] [address] [place] [address] Referral ID Status Reason Start Date Expiration Date Visits Requested Visits Authorized [id number] Pending Review Auto-Generat ed Referral 02/22/2022 02/22/2023 1 1 [facility] for referral (narrative)* Diagnostic Procedure Only (Routine) - Closed Specialty Diagnoses / Procedures Referred By Contac t Referred To Contact XR IMAGING Diagnoses Primary osteoarthritis of left knee Arthritis of knee Procedures XR KNEE POST OP 3V AP/LAT/MERCHANT LEFT X-RAY KNEE 3+ VW Castillo Allen PA-C [address] [place] [address] [facility] Referral ID Status Reason Start Date Expiration Date V isits Requested Visits Authorized [id number] Closed Auto-Generate d Referral 10/07/2021 11/06/2022 1 1 T [facility] for referral (narrative)* Diagnostic Procedure Only (Routine) - Pending Review Specialty Diagnoses / Procedures Referred By Contac t Referred To Contact XR IMAGING Diagnoses Right shoulder pain, unspecified chronicity Procedures XR SHOULDER GENERAL 3V OR MORE AP/TRUE AP/OTHER RIGHT RADEX SHOULDER COMPLETE MINIMUM 2 VIEWS Giovanni Mclean V, DO [address] [place] [address] [place] [address] Referral ID Status Reason Start Date Expiration Date Visits Requested Visits Authorized [id number] Pending Review Auto-Generat ed Referral 04/10/2024 05/10/2025 1 1 [facility] for referral (narrative)* Outpatient Procedure (Routine) - New Request Specialty Diagnoses / Procedures Referred By Contac t Referred To Contact [facility] Diagnoses Paresthesias in left hand Procedures EMG(NEURO/NI) NERVE CONDUCTION STUDIES 9-10 STUDIES Giovanni Mclean V, DO [address] [place] [address] [facility] [address] [place] [address] Referral ID Status Reason Start Date Expiration Date Visits Requested Visits Authorized [id number] New Request Auto-Generat ed Referral 07/22/2024 07/22/2025 1 1 [facility] for referral (narrative)* Diagnostic Procedure Only (Routine) - New Request Specialty Diagnoses / Procedures Referred By Contac t Referred To Contact XR IMAGING Diagnoses Carpal tunnel syndrome of left wrist Procedures XR WRIST GENERAL 3V PA/LAT/OBL LEFT RADEX WRIST COMPLETE MINIMUM 3 VIEWS Stephan Yun MD [address] [facility] Referral ID Status Reason Start Date Expiration Date Visits Requested Visits Authorized [id number] New Request Auto-Generat ed Referral 09/21/2025 1 1 [facility] for visit Narrative* Diagnostic Procedure Only (Routine) - Closed Specialty Diagnoses / Procedures Referred By Contac t Referred To Contact XR IMAGING Diagnoses Primary osteoarthritis of left knee Arthritis of knee Procedures XR KNEE POST OP 3V AP/LAT/MERCHANT LEFT X-RAY KNEE 3+ VW Castillo Allen, PA-C [address] [place] [address] [facility] Referral ID Status Reason Start Date Expiration Date V isits Requested Visits Authorized [id number] Closed Auto-Generate d Referral 10/07/2021 11/06/2022 1 1 [facility] for visit Narrative* Diagnostic Procedure Only (Routine) - Closed Specialty Diagnoses / Procedures Referred By Contac t Referred To Contact XR IMAGING Diagnoses Right shoulder pain, unspecified chronicity Procedures XR SHOULDER GENERAL 3V OR MORE AP/TRUE AP/OTHER RIGHT RADEX SHOULDER COMPLETE MINIMUM 2 VIEWS Giovanni Mclean V, DO [address] [place] [address] [place] [address] Referral ID Status Reason Start Date Expiration Date V isits Requested Visits Authorized [id number] Closed Auto-Generate d Referral 04/10/2024 05/10/2025 1 1 [facility] for visit Narrative* Outpatient Procedure (Routine) - Closed Specialty Diagnoses / Procedures Referred By Carly castro Referred To Contact [facility] Diagnoses Paresthesias in left hand Procedures EMG(NEURO/NI) NERVE CONDUCTION STUDIES 9-10 STUDIES Giovanni Mclean V, DO [address] [place] [address] [facility] [address] [place] [address] Referral ID Status Reason Start Date Expiration Date V isits Requested Visits Authorized [id number] Closed Auto-Generate d Referral 07/22/2024 07/22/2025 1 1 [facility] Summary Purpose Family History No Family History Records FoundThere may be information available, but it has not been provided by the sender.No Family History Records FoundNo Family History Records FoundNo Family History Records FoundNo Family History Records FoundNo Family History Records Found Advance Directives No Advanced Directives Records FoundDocuments on File Type Date Recorded Patient Occupational Therapist'S Assistant Expl anation Advance Directive(s) 08/13/2018 9:33 AM Date Activated Date Inactivated Comments 03/18/2022 10:37 PM Documents on File Type Date Recorded Patient Occupational Therapist'S Assistant Expl anation Advance Directive(s) 12/19/2021 8:26 AM Advance Directive(s) 12/09/2021 2:01 PM Advance Directive(s) 04/30/2020 10:34 AM Advance Directive(s) 04/19/2020 2:26 PM Advance Directive(s) 08/13/2018 9:33 AM Documents on File Type Date Recorded Patient Occupational Therapist'S Assistant Expl anation Advance Directive(s) 02/22/2022 10:59 AM Advance Directive(s) 02/17/2022 5:19 PM Advance Directive(s) 12/19/2021 8:26 AM Advance Directive(s) 12/09/2021 2:01 PM Advance Directive(s) 04/30/2020 10:34 AM Advance Directive(s) 04/19/2020 2:26 PM Advance Directive(s) 08/13/2018 9:33 AM Documents on File Type Date Recorded Patient Occupational Therapist'S Assistant Expl anation Advance Directive(s) 02/22/2022 10:59 AM Advance Directive(s) 02/17/2022 5:19 PM Advance Directive(s) 12/19/2021 8:26 AM Advance Directive(s) 12/09/2021 2:01 PM Advance Directive(s) 04/30/2020 10:34 AM Advance Directive(s) 04/19/2020 2:26 PM Advance Directive(s) 08/13/2018 9:33 AM Documents on File Type Date Recorded Patient Occupational Therapist'S Assistant Expl anation Advance Directive(s) 03/16/2022 5:59 AM Advance Directive(s) 02/22/2022 10:59 AM Advance Directive(s) 02/17/2022 5:19 PM Advance Directive(s) 12/19/2021 8:26 AM Advance Directive(s) 12/09/2021 2:01 PM Advance Directive(s) 04/30/2020 10:34 AM Advance Directive(s) 04/19/2020 2:26 PM Advance Directive(s) 08/13/2018 9:33 AM Latest Code Status on File Code Status Date Activated Date Inactivated Comments Full Code 03/18/2022 10:37 PM Latest Code Status on File Code Status Date Activated Date Inactivated Comments Full Code 03/18/2022 10:37 PM Documents on File Type Date Recorded Patient Occupational Therapist'S Assistant Expl anation Advance Directive(s) 08/13/2018 9:33 AM Latest Code Status on File Code Status Date Activated Date Inactivated Comments Full Code 03/18/2022 10:37 PM Date Activated Date Inactivated Comments 03/18/2022 10:37 PM Date Activated Date Inactivated Comments 03/18/2022 10:37 PM 09/09/2024 12:18 PM Date Activated Date Inactivated Comments 03/18/2022 10:37 PM 09/09/2024 12:18 PM Chief Complaint Chief Complaint Description Start Date right wrist Preliminary chief co mplaint data, not yet signed by the author as of Instructions Instruction Description Start Date Patient advised to follow-up with Primary Care Physician for BMI management. Assessments There may be information available, but it has not been provided by the sender. Review of System There may be information available, but it has not been provided by the sender. History of Present Illness There may be information available, but it has not been provided by the sender. Health Concerns Infection Onset Date Last Indicated Resolved Time COVID-19 Rule-Out 10/08/2021 10/07/2021 10/28/2021 8:51 PM EST Reason for Referral Specialty Diagnoses / Procedures Referred By Contac t Referred To Contact CT IMAGING Diagnoses Primary osteoarthritis of left knee Arthritis of knee Preop testing Procedures CT KNEE WO IVCON LT CT SCAN OF LEG Castillo Allen PA-C [address] [place] [address] Ct Imaging Referral ID Status Reason Start Date Expiration Date V isits Requested Visits Authorized [id number] Closed Auto-Generate d Referral 10/07/2021 11/06/2022 1 1 Specialty Diagnoses / Procedures Referred By Contac t Referred To Contact [facility] Diagnoses Radiculopathy, cervical Procedures [facility] Kat Palomo PA-C [address] [place] [address] Referral ID Status Reason Start Date Expiration Date Visits Requested Visits Authorized [id number] Ref Not Required PCP Requested Referral 4 09/26/2025 1 1 Specialty Diagnoses / Procedures Referred By Contac t Referred To Contact [facility] Diagnoses Nontraumatic tear of right rotator cuff, unspecified tear extent Procedures CONSULT TO PHYSICAL THERAPY PHYSICAL THERAPY EVALUATION HIGH COMPLEX 45 MINS Helio Cortez MD [address] [address] [facility] [address] [place] [id number] Referral ID Status Reason Start Date Expiration Date Visits Requested Visits Authorized [id number] Authorized PCP Requested Referral Auto-Generate d Referral 4 10/23/2025 99 99 Specialty Diagnoses / Procedures Referred By Contac t Referred To Contact MR IMAGING Diagnoses Nontraumatic tear of right rotator cuff, unspecified tear extent Rupture of right proximal biceps tendon, initial encounter Procedures MRI SHOULDER WO IVCON RIGHT MRI ANY JT UPPER EXTREMITY W/O CONTRAST MATRL Helio Cortez MD [address] [place] [address] [place] [address] Referral ID Status Reason Start Date Expiration Date Visits Requested Visits Authorized [id number] Authorized Auto-Generat ed Referral 12/16/2024 01/15/2026 1 1 Referral ID Status Reason Start Date Expiration Date V isits Requested Visits Authorized [id number] Closed Auto-Generate d Referral 12/16/2024 01/15/2026 1 1 Additional Source Comments (unrecognized sect ion and content) No Status Records FoundNo Status Records FoundNo Status Records FoundNo Status Records FoundNo Status Records FoundNo Status Records Found INFORMATION SOURCE (unrecogn ized section and content) DATE CREATED AUTHOR 09/29/2018 [facility] DATE CREATED AUTHOR AUTHOR'S ORGANIZ ATION 05/28/2020 [facility] DATE CREATED AUTHOR AUTHOR'S ORGANIZ ATION 05/09/2022 [facility] DATE CREATED AUTHOR AUTHOR'S ORGANIZ ATION 12/16/2024 [facility] DATE CREATED AUTHOR AUTHOR'S ORGANIZ ATION 06/05/2025 [facility] DATE CREATED AUTHOR AUTHOR'S ORGANIZ ATION 07/08/2025 [facility] Reason for Visit (unrecogniz ed section and content) Reason Comments PT Progress Note Specialty Diagnoses / Procedures Referred By Carly castro Referred To Contact [facility] Diagnoses Nontraumatic tear of right rotator cuff, unspecified tear extent Procedures PHYSICAL THERAPY EVALUATION HIGH COMPLEX 45 MINS Helio Cortez MD [address] [place] [address] [id number] Phone: tel: fax: [facility] [address] [place] [address] Referral ID Status Reason Start Date Expiration Date Visits Requested Visits Authorized [id number] Authorized PCP Requested Referral Auto-Generate d Referral 10/23/2025 99 99 Reason Comments Physical Therapy Specialty Diagnoses / Procedures Referred By Contac t Referred To Contact [facility] Diagnoses Nontraumatic tear of right rotator cuff, unspecified tear extent Procedures CONSULT TO PHYSICAL THERAPY PHYSICAL THERAPY EVALUATION HIGH COMPLEX 45 MINS Helio Cortez MD [address] [address] Phone: tel: fax: [facility] [address] [place] [address] Reason Comments PT Discharge Specialty Diagnoses / Procedures Referred By Gillianac t Referred To Contact Physical Therapy Diagnoses Status post left knee replacement Procedures CONSULT TO PHYSICAL THERAPY Castillo Allen PA-C [address] [place] [address] Referral ID Status Reason Start Date Expiration Date V isits Requested Visits Authorized [id number] Authorized 03/21/2022 06/19/2022 99 99 Reason For Visit Description Start Date New - 1st visit with practice Preliminary reason f or visit data, not yet signed by the author as of right wrist Reason Comments Orders Reason Comments Pre-Op Visit Specialty Diagnoses / Procedures Referred By Carly castro Referred To Contact CT IMAGING Diagnoses Primary osteoarthritis of left knee Arthritis of knee Preop testing Procedures CT KNEE WO IVCON LT CT SCAN OF LEG Castillo Allen PA-C [address] [place] [address] Ct Imaging Referral ID Status Reason Start Date Expiration Date V isits Requested Visits Authorized [id number] Closed Auto-Generate d Referral 10/07/2021 11/06/2022 1 1 Reason Comments Home Care Reason Onset Date Comments Refill Request 03/27/2022 Reason Comments Home Care agency d/c Reason Comments PT Eval Patient Education Reason Comments Post Op Reason Comments Annual Physical Reason Comments right shoulder pain Reason Comments Appointment Reason Comments Follow Up Pain Reason Comments Post Op Denies pain Reason Comments New Pain Reason Comments Established Patient Pain Specialty Diagnoses / Procedures Referred By Carly t Referred To Contact [facility] IMAGING Diagnoses Nontraumatic tear of right rotator cuff, unspecified tear extent Rupture of right proximal biceps tendon, initial encounter Procedures MRI SHOULDER WO IVCON RIGHT MRI ANY JT UPPER EXTREMITY W/O CONTRAST MATRL Cortez, Helio A, MD [address] [place] [address] [place] [address] Referral ID Status Reason Start Date Expiration Date V isits Requested Visits Authorized [id number] Closed Auto-Generate d Referral 12/16/2024 01/15/2026 1 1 Reason Comments Established Patient Follow Up Pain Results - Mri Reason Comments Established Patient Started about 3 year s ago 12/22 pain (ache) is worse at night Denies any new injuries/ falls Follow Up Started about 3 year s ago 12/22 pain (ache) is worse at night Denies any new injuries/ falls Pain Started about 3 year s ago 12/22 pain (ache) is worse at night Denies any new injuries/ falls Reason Comments New Patient Reason Comments Follow Up Reason Comments Preparations For Surgery Arrival time co nfirmation Reason Comments Post Op Reason Comments PT Eval Reason Comments Post Op Follow Up Pain Source Comments (unrecognize d section and content) In the event this informatio n is protected by the Federal Confidentiality of Alcohol and Drug Abuse Patient Records regulations: The Federal rules restrict any use of the information to criminally investigate or prosecute any alcohol or drug abuse patient.[facility] Center[facility] the event this information is protected by the Federal Confidentiality of Alcohol and Drug Abuse Patient Records regulations: The Federal rules restrict any use of the information to criminally investigate or prosecute any alcohol or drug abuse patient.[facility] CenterIn the event this information is protected by the Federal Confidentiality of Alcohol and Drug Abuse Patient Records regulations: The Federal rules restrict any use of the information to criminally investigate or prosecute any alcohol or drug abuse patient.[facility] the event this information is protected by the Federal Confidentiality of Alcohol and Drug Abuse Patient Records regulations: The Federal rules restrict any use of the information to criminally investigate or prosecute any alcohol or drug abuse patient.[facility] CenterIn the event this information is protected by the Federal Confidentiality of Alcohol and Drug Abuse Patient Records regulations: The Federal rules restrict any use of the information to criminally investigate or prosecute any alcohol or drug abuse patient.[facility] CenterIn the event this information is protected by the Federal Confidentiality of Alcohol and Drug Abuse Patient Records regulations: The Federal rules restrict any use of the information to criminally investigate or prosecute any alcohol or drug abuse patient.[facility] the event this information is protected by the Federal Confidentiality of Alcohol and Drug Abuse Patient Records regulations: The Federal rules restrict any use of the information to criminally investigate or prosecute any alcohol or drug abuse patient.[facility] CenterIn the event this information is protected by the Federal Confidentiality of Alcohol and Drug Abuse Patient Records regulations: The Federal rules restrict any use of the information to criminally investigate or prosecute any alcohol or drug abuse patient.[facility] CenterIn the event this information is protected by the Federal Confidentiality of Alcohol and Drug Abuse Patient Records regulations: The Federal rules restrict any use of the information to criminally investigate or prosecute any alcohol or drug abuse patient.[facility] CenterIn the event this information is protected by the Federal Confidentiality of Alcohol and Drug Abuse Patient Records regulations: The Federal rules restrict any use of the information to criminally investigate or prosecute any alcohol or drug abuse patient.[facility] CenterIn the event this information is protected by the Federal Confidentiality of Alcohol and Drug Abuse Patient Records regulations: The Federal rules restrict any use of the information to criminally investigate or prosecute any alcohol or drug abuse patient.[facility] CenterIn the event this information is protected by the Federal Confidentiality of Alcohol and Drug Abuse Patient Records regulations: The Federal rules restrict any use of the information to criminally investigate or prosecute any alcohol or drug abuse patient.[facility] CenterIn the event this information is protected by the Federal Confidentiality of Alcohol and Drug Abuse Patient Records regulations: The Federal rules restrict any use of the information to criminally investigate or prosecute any alcohol or drug abuse patient.[facility] CenterIn the event this information is protected by the Federal Confidentiality of Alcohol and Drug Abuse Patient Records regulations: The Federal rules restrict any use of the information to criminally investigate or prosecute any alcohol or drug abuse patient.[facility] CenterIn the event this information is protected by the Federal Confidentiality of Alcohol and Drug Abuse Patient Records regulations: The Federal rules restrict any use of the information to criminally investigate or prosecute any alcohol or drug abuse patient.[facility] CenterIn the event this information is protected by the Federal Confidentiality of Alcohol and Drug Abuse Patient Records regulations: The Federal rules restrict any use of the information to criminally investigate or prosecute any alcohol or drug abuse patient.[facility] CenterIn the event this information is protected by the Federal Confidentiality of Alcohol and Drug Abuse Patient Records regulations: The Federal rules restrict any use of the information to criminally investigate or prosecute any alcohol or drug abuse patient.[facility] CenterIn the event this information is protected by the Federal Confidentiality of Alcohol and Drug Abuse Patient Records regulations: The Federal rules restrict any use of the information to criminally investigate or prosecute any alcohol or drug abuse patient.[facility] CenterIn the event this information is protected by the Federal Confidentiality of Alcohol and Drug Abuse Patient Records regulations: The Federal rules restrict any use of the information to criminally investigate or prosecute any alcohol or drug abuse patient.[facility] CenterIn the event this information is protected by the Federal Confidentiality of Alcohol and Drug Abuse Patient Records regulations: The Federal rules restrict any use of the information to criminally investigate or prosecute any alcohol or drug abuse patient.[facility] CenterIn the event this information is protected by the Federal Confidentiality of Alcohol and Drug Abuse Patient Records regulations: The Federal rules restrict any use of the information to criminally investigate or prosecute any alcohol or drug abuse patient.[facility] CenterIn the event this information is protected by the Federal Confidentiality of Alcohol and Drug Abuse Patient Records regulations: The Federal rules restrict any use of the information to criminally investigate or prosecute any alcohol or drug abuse patient.[facility] CenterIn the event this information is protected by the Federal Confidentiality of Alcohol and Drug Abuse Patient Records regulations: The Federal rules restrict any use of the information to criminally investigate or prosecute any alcohol or drug abuse patient.[facility] CenterIn the event this information is protected by the Federal Confidentiality of Alcohol and Drug Abuse Patient Records regulations: The Federal rules restrict any use of the information to criminally investigate or prosecute any alcohol or drug abuse patient.[facility] CenterIn the event this information is protected by the Federal Confidentiality of Alcohol and Drug Abuse Patient Records regulations: The Federal rules restrict any use of the information to criminally investigate or prosecute any alcohol or drug abuse patient.[facility] CenterIn the event this information is protected by the Federal Confidentiality of Alcohol and Drug Abuse Patient Records regulations: The Federal rules restrict any use of the information to criminally investigate or prosecute any alcohol or drug abuse patient.[facility] CenterIn the event this information is protected by the Federal Confidentiality of Alcohol and Drug Abuse Patient Records regulations: The Federal rules restrict any use of the information to criminally investigate or prosecute any alcohol or drug abuse patient.[facility] CenterIn the event this information is protected by the Federal Confidentiality of Alcohol and Drug Abuse Patient Records regulations: The Federal rules restrict any use of the information to criminally investigate or prosecute any alcohol or drug abuse patient.[facility] CenterIn the event this information is protected by the Federal Confidentiality of Alcohol and Drug Abuse Patient Records regulations: The Federal rules restrict any use of the information to criminally investigate or prosecute any alcohol or drug abuse patient.[facility] CenterIn the event this information is protected by the Federal Confidentiality of Alcohol and Drug Abuse Patient Records regulations: The Federal rules restrict any use of the information to criminally investigate or prosecute any alcohol or drug abuse patient.[facility] CenterIn the event this information is protected by the Federal Confidentiality of Alcohol and Drug Abuse Patient Records regulations: The Federal rules restrict any use of the information to criminally investigate or prosecute any alcohol or drug abuse patient.[facility] CenterIn the event this information is protected by the Federal Confidentiality of Alcohol and Drug Abuse Patient Records regulations: The Federal rules restrict any use of the information to criminally investigate or prosecute any alcohol or drug abuse patient.[facility] CenterIn the event this information is protected by the Federal Confidentiality of Alcohol and Drug Abuse Patient Records regulations: The Federal rules restrict any use of the information to criminally investigate or prosecute any alcohol or drug abuse patient.[facility] CenterIn the event this information is protected by the Federal Confidentiality of Alcohol and Drug Abuse Patient Records regulations: The Federal rules restrict any use of the information to criminally investigate or prosecute any alcohol or drug abuse patient.[facility] CenterIn the event this information is protected by the Federal Confidentiality of Alcohol and Drug Abuse Patient Records regulations: The Federal rules restrict any use of the information to criminally investigate or prosecute any alcohol or drug abuse patient.[facility] CenterIn the event this information is protected by the Federal Confidentiality of Alcohol and Drug Abuse Patient Records regulations: The Federal rules restrict any use of the information to criminally investigate or prosecute any alcohol or drug abuse patient.[facility] CenterIn the event this information is protected by the Federal Confidentiality of Alcohol and Drug Abuse Patient Records regulations: The Federal rules restrict any use of the information to criminally investigate or prosecute any alcohol or drug abuse patient.[facility] CenterIn the event this information is protected by the Federal Confidentiality of Alcohol and Drug Abuse Patient Records regulations: The Federal rules restrict any use of the information to criminally investigate or prosecute any alcohol or drug abuse patient.[facility] CenterIn the event this information is protected by the Federal Confidentiality of Alcohol and Drug Abuse Patient Records regulations: The Federal rules restrict any use of the information to criminally investigate or prosecute any alcohol or drug abuse patient.[facility] CenterIn the event this information is protected by the Federal Confidentiality of Alcohol and Drug Abuse Patient Records regulations: The Federal rules restrict any use of the information to criminally investigate or prosecute any alcohol or drug abuse patient.[facility] CenterIn the event this information is protected by the Federal Confidentiality of Alcohol and Drug Abuse Patient Records regulations: The Federal rules restrict any use of the information to criminally investigate or prosecute any alcohol or drug abuse patient.[facility] CenterIn the event this information is protected by the Federal Confidentiality of Alcohol and Drug Abuse Patient Records regulations: The Federal rules restrict any use of the information to criminally investigate or prosecute any alcohol or drug abuse patient.[facility] CenterIn the event this information is protected by the Federal Confidentiality of Alcohol and Drug Abuse Patient Records regulations: The Federal rules restrict any use of the information to criminally investigate or prosecute any alcohol or drug abuse patient.[facility] CenterIn the event this information is protected by the Federal Confidentiality of Alcohol and Drug Abuse Patient Records regulations: The Federal rules restrict any use of the information to criminally investigate or prosecute any alcohol or drug abuse patient.[facility] CenterIn the event this information is protected by the Federal Confidentiality of Alcohol and Drug Abuse Patient Records regulations: The Federal rules restrict any use of the information to criminally investigate or prosecute any alcohol or drug abuse patient.[facility] CenterIn the event this information is protected by the Federal Confidentiality of Alcohol and Drug Abuse Patient Records regulations: The Federal rules restrict any use of the information to criminally investigate or prosecute any alcohol or drug abuse patient.[facility] CenterIn the event this information is protected by the Federal Confidentiality of Alcohol and Drug Abuse Patient Records regulations: The Federal rules restrict any use of the information to criminally investigate or prosecute any alcohol or drug abuse patient.[facility] CenterIn the event this information is protected by the Federal Confidentiality of Alcohol and Drug Abuse Patient Records regulations: The Federal rules restrict any use of the information to criminally investigate or prosecute any alcohol or drug abuse patient.[facility] CenterIn the event this information is protected by the Federal Confidentiality of Alcohol and Drug Abuse Patient Records regulations: The Federal rules restrict any use of the information to criminally investigate or prosecute any alcohol or drug abuse patient.[facility] CenterIn the event this information is protected by the Federal Confidentiality of Alcohol and Drug Abuse Patient Records regulations: The Federal rules restrict any use of the information to criminally investigate or prosecute any alcohol or drug abuse patient.[facility] CenterIn the event this information is protected by the Federal Confidentiality of Alcohol and Drug Abuse Patient Records regulations: The Federal rules restrict any use of the information to criminally investigate or prosecute any alcohol or drug abuse patient.[facility] CenterIn the event this information is protected by the Federal Confidentiality of Alcohol and Drug Abuse Patient Records regulations: The Federal rules restrict any use of the information to criminally investigate or prosecute any alcohol or drug abuse patient.[facility] CenterIn the event this information is protected by the Federal Confidentiality of Alcohol and Drug Abuse Patient Records regulations: The Federal rules restrict any use of the information to criminally investigate or prosecute any alcohol or drug abuse patient.[facility] the event this information is protected by the Federal Confidentiality of Alcohol and Drug Abuse Patient Records regulations: The Federal rules restrict any use of the information to criminally investigate or prosecute any alcohol or drug abuse patient.[facility] CenterIn the event this information is protected by the Federal Confidentiality of Alcohol and Drug Abuse Patient Records regulations: The Federal rules restrict any use of the information to criminally investigate or prosecute any alcohol or drug abuse patient.[facility] CenterIn the event this information is protected by the Federal Confidentiality of Alcohol and Drug Abuse Patient Records regulations: The Federal rules restrict any use of the information to criminally investigate or prosecute any alcohol or drug abuse patient.[facility]In the event this information is protected by the Federal Confidentiality of Alcohol and Drug Abuse Patient Records regulations: The Federal rules restrict any use of the information to criminally investigate or prosecute any alcohol or drug abuse patient.[facility] CenterIn the event this information is protected by the Federal Confidentiality of Alcohol and Drug Abuse Patient Records regulations: The Federal rules restrict any use of the information to criminally investigate or prosecute any alcohol or drug abuse patient.[facility] CenterIn the event this information is protected by the Federal Confidentiality of Alcohol and Drug Abuse Patient Records regulations: The Federal rules restrict any use of the information to criminally investigate or prosecute any alcohol or drug abuse patient.[facility] CenterIn the event this information is protected by the Federal Confidentiality of Alcohol and Drug Abuse Patient Records regulations: The Federal rules restrict any use of the information to criminally investigate or prosecute any alcohol or drug abuse patient.[facility] CenterIn the event this information is protected by the Federal Confidentiality of Alcohol and Drug Abuse Patient Records regulations: The Federal rules restrict any use of the information to criminally investigate or prosecute any alcohol or drug abuse patient.[facility] CenterIn the event this information is protected by the Federal Confidentiality of Alcohol and Drug Abuse Patient Records regulations: The Federal rules restrict any use of the information to criminally investigate or prosecute any alcohol or drug abuse patient.[facility] CenterIn the event this information is protected by the Federal Confidentiality of Alcohol and Drug Abuse Patient Records regulations: The Federal rules restrict any use of the information to criminally investigate or prosecute any alcohol or drug abuse patient.[facility] CenterIn the event this information is protected by the Federal Confidentiality of Alcohol and Drug Abuse Patient Records regulations: The Federal rules restrict any use of the information to criminally investigate or prosecute any alcohol or drug abuse patient.[facility] CenterIn the event this information is protected by the Federal Confidentiality of Alcohol and Drug Abuse Patient Records regulations: The Federal rules restrict any use of the information to criminally investigate or prosecute any alcohol or drug abuse patient.[facility] Care Teams (unrecognized sec tion and content) Lobster Fisherman Relationship Specialty Start Date End Date Giovanni Mclean V, DO [address] [place] [address] PCP - General 12/20/06 Lobster Fisherman Relationship Specialty Start Date End Date Giovanni Mclean V, DO [address] [place] [address] PCP - General 12/20/06 Lobster Fisherman Relationship Specialty Start Date End Date Giovanni Mclean V, DO [address] [facility] [place] [address] PCP - General 12/20/06 Lobster Fisherman Relationship Specialty Start Date End Date Giovanni Mclean V, DO [address] [facility] [place] [address] PCP - General 12/20/06 Lobster Fisherman Relationship Specialty Start Date End Date Giovanni Mclean V, DO [address] [facility] [place] [address] PCP - General 12/20/06 Lobster Fisherman Relationship Specialty Start Date End Date Giovanni Mclean V, DO [address] [place] [address] PCP - General 12/20/06 Jensen Elizabeth MD [address] [place] [address] Referring Orthopedics 03/17/22 aPrminder Crouch MD [address] [place] [address] Home Care Physician Orthopedics 03/17/22 Avis Milton, PT [address] [place] [address] Molded Goods Operator Post Acute Care 03/17/22 Lobster Fisherman Relationship Specialty Start Date End Date Giovanni Mclean V, DO [address] [place] [address] PCP - General 12/20/06 Jensen Elizabeth MD [address] [place] [address] Referring Orthopedics 03/17/22 Parminder Crouch MD [address] [place] [address] Home Care Physician Orthopedics 03/17/22 Avis Milton, PT [address] [place] [address] Molded Goods Operator Post Acute Care 03/17/22 Lobster Fisherman Relationship Specialty Start Date End Date Giovanni Mclean V, DO [address] [place] [address] PCP - General 12/20/06 Jensen Elizabeth MD [address] [place] [address] Referring Orthopedics 03/17/22 Avis Milton, PT [address] [place] [address] Molded Goods Operator Post Acute Care 03/17/22 Luis Holliday MD [address] [place] [address] Home Care Physician Orthopedics 03/19/22 Lobster Fisherman Relationship Specialty Start Date End Date Giovanni Mclean V, DO [address] [place] [address] PCP - General 12/20/06 Jensen Elizabeth MD [address] [place] [address] Referring Orthopedics 03/17/22 Avis Milton, PT [address] [place] [address] Molded Goods Operator Post Acute Care 03/17/22 Luis Holliday MD [address] [place] [address]60 Home Care Physician Orthopedics 03/19/22 Lobster Fisherman Relationship Specialty Start Date End Date Giovanni Mclean V, DO [address] [place] [address] PCP - General 12/20/06 Jensen Elizabeth MD [address] [place] [address] Referring Orthopedics 03/17/22 Avis Milton, PT [address] [place] [address] Molded Goods Operator Post Acute Care 03/17/22 Luis Holliday MD [address] [place] [address]50 Home Care Physician Orthopedics 03/19/22 Lobster Fisherman Relationship Specialty Start Date End Date Giovanni Mclean V, DO [address] [place] [address] PCP - General 12/20/06 Jensen Elizabeth MD [address] [place] [address] Referring Orthopedics 03/17/22 Avis Milton, PT [address] [place] [address] Molded Goods Operator Post Acute Care 03/17/22 Luis Holliday MD [address] [place] [address] Home Care Physician Orthopedics 03/19/22 Lobster Fisherman Relationship Specialty Start Date End Date Giovanni Mclean V, DO [address] [place] [address] PCP - General 12/20/06 Jensen Elizabeth MD [address] [place] [address] Referring Orthopedics 03/17/22 Avis Milton, PT [address] [place] [address] Molded Goods Operator Post Acute Care 03/17/22 Luis Holliday MD [address] [place] [address] Home Care Physician Orthopedics 03/19/22 Lobster Fisherman Relationship Specialty Start Date End Date Giovanni Mclean V, DO [address] [place] [address] PCP - General 12/20/06 Jensen Elizabeth MD [address] [place] [address] Referring Orthopedics 03/17/22 Avis Milton, PT [address] [place] [address] Molded Goods Operator Post Acute Care 03/17/22 Luis Holliday MD [address] [place] [address] Home Care Physician Orthopedics 03/19/22 Lobster Fisherman Relationship Specialty Start Date End Date Giovanni Mclean V, DO [address] [place] [address] PCP - General 12/20/06 Jensen Elizabeth MD [address] [place] [address] Referring Orthopedics 03/17/22 Avis Milton, PT [address] [place] [address] Molded Goods Operator Post Acute Care 03/17/22 Luis Holliday MD [address] [place] [address] 31158 Home Care Physician Orthopedics 03/19/22 Lobster Fisherman Relationship Specialty Start Date End Date Giovanni Mclean V, DO [address] [place] [address] PCP - General 12/20/06 Jensen Elizabeth MD [address] [place] [address] Referring Orthopedics 03/17/22 Avis Milton, PT [address] [place] [address] Molded Goods Operator Post Acute Care 03/17/22 Luis Holliday MD [address] [place] [address] 93475 Home Care Physician Orthopedics 03/19/22 Lobster Fisherman Relationship Specialty Start Date End Date Giovanni Mclean V, DO [address] [place] [address] PCP - General 12/20/06 Jensen Elizabeth MD [address] [place] [address] Referring Orthopedics 03/17/22 Avis Milton, PT [address] [place] [address] Molded Goods Operator Post Acute Care 03/17/22 Luis Holliday MD [address] [place] [address] 47[address] Home Care Physician Orthopedics 03/19/22 Lobster Fisherman Relationship Specialty Start Date End Date Giovanni Mclean V, DO [address] [place] [address] PCP - General 12/20/06 Jensen Elizabeth MD [address] [place] [address] Referring Orthopedics 03/17/22 Avis Milton, PT [address] [place] [address] Molded Goods Operator Post Acute Care 03/17/22 Luis Holliday MD [address] [place] [address] 25476 Home Care Physician Orthopedics 03/19/22 Lobster Fisherman Relationship Specialty Start Date End Date Giovanni Mclean V DO [address] [place] [address] PCP - General 12/20/06 Jensen Elizabeth MD [address] [place] [address] Referring Orthopedics 03/17/22 Avis Milton, PT [address] [place] [address] Molded Goods Operator Post Acute Care 03/17/22 Luis Holliday MD [address] [place] [address] 9[address]50 Home Care Physician Orthopedics 03/19/22 Lobster Fisherman Relationship Specialty Start Date End Date Giovanni Mclean V, DO [address] [place] [address] PCP - General 12/20/06 Jensen Elizabeth MD [address] [place] [address] Referring Orthopedics 03/17/22 Avis Milton, PT [address] [place] [address] Molded Goods Operator Post Acute Care 03/17/22 Luis Holliday MD [address] [place] [address]85 Home Care Provider Orthopedics 03/19/22 Lobster Fisherman Relationship Specialty Start Date End Date Giovanni Mclean V, DO [address] [place] [address] PCP - General 12/20/06 Jensen Elizabeth MD [address] [place] [address] Referring Orthopedics 03/17/22 Avis Milton, PT [address] [place] [address] Molded Goods Operator Post Acute Care 03/17/22 Luis Holliday MD [address] [place] [address] 83178 Home Care Provider Orthopedics 03/19/22 Lobster Fisherman Relationship Specialty Start Date End Date Giovanni Mclean V, DO [address] [place] [address] PCP - General 12/20/06 Jensen Elizabeth MD [address] [place] [address] Referring Orthopedics 03/17/22 Luis Holliday MD [address] [place] [address]995 Home Care Provider Orthopedics 03/19/22 Lobster Fisherman Relationship Specialty Start Date End Date Giovanni Mclean V, DO [address] [place] [address] PCP - General 12/20/06 Jensen Elizabeth MD [address] [place] [address] Referring Orthopedics 03/17/22 Luis Holliday MD [address] [place] [address] 10321 Home Care Provider Orthopedics 03/19/22 Lobster Fisherman Relationship Specialty Start Date End Date Giovanni Mclean V, DO [address] [place] [address] PCP - General 12/20/06 Jensen Elizabeth MD [address] [place] [address] Referring Orthopedics 03/17/22 Luis Holliday MD [address] [place] [address] 89733 Home Care Provider Orthopedics 03/19/22 Lobster Fisherman Relationship Specialty Start Date End Date Giovanni Mclean V, DO [address] [place] [address] PCP - General 12/20/06 Jensen Elizabeth MD [address] [place] [address] Referring Orthopedics 03/17/22 Luis Holliday MD [address] [place] [address] Home Care Provider Orthopedics 03/19/22 Lobster Fisherman Relationship Specialty Start Date End Date Giovanni Mclean V, DO [address] [place] [address] PCP - General 12/20/06 Jensen Elizabeth MD [address] [place] [address] Referring Orthopedics 03/17/22 Luis Holliday MD [address] [place] [address] 59275 Home Care Provider Orthopedics 03/19/22 Lobster Fisherman Relationship Specialty Start Date End Date Giovanni Mclean V, DO [address] [place] [address] PCP - General 12/20/06 Jensen Elizabeth MD [address] [place] [address] Referring Orthopedics 03/17/22 Luis Holliday MD [address] [place] [address] 32400 Home Care Provider Orthopedics 03/19/22 Lobster Fisherman Relationship Specialty Start Date End Date Giovanni Mclean V, DO [address] [place] [address] PCP - General 12/20/06 Jensen Elizabeth MD [address] [place] [address] Referring Orthopedics 03/17/22 Luis Holliday MD [address] [place] [address] 79673 Home Care Provider Orthopedics 03/19/22 Lobster Fisherman Relationship Specialty Start Date End Date Giovanni Mclean V, DO [address] [place] [address] PCP - General 12/20/06 Jensen Elizabeth MD [address] [place] [address] Referring Orthopedics 03/17/22 Luis Holliday MD [address] [place] [address] 30121 Home Care Provider Orthopedics 03/19/22 Lobster Fisherman Relationship Specialty Start Date End Date Giovanin Mclean V, DO [address] [place] [address] PCP - General 12/20/06 Jensen Elizabeth MD [address] [place] [address] Referring Orthopedics 03/17/22 Luis Holliday MD [address] [place] [address] 04474 Home Care Provider Orthopedics 03/19/22 Lobster Fisherman Relationship Specialty Start Date End Date Giovanni Mclean V, DO [address] [place] [address] PCP - General 12/20/06 Jensen Elizabeth MD [address] [place] [address] Referring Orthopedics 03/17/22 Luis Holliday MD [address] [place] [address] 44820 Home Care Provider Orthopedics 03/19/22 Lobster Fisherman Relationship Specialty Start Date End Date Giovanni Mclean V, DO [address] [place] [address] PCP - General 12/20/06 Jensen Elizabeth MD [address] [place] [address] Referring Orthopedics 03/17/22 Luis Holliday MD [address] [place] [address] 01023 Home Care Provider Orthopedics 03/19/22 Lobster Fisherman Relationship Specialty Start Date End Date Giovanni Mclean V, DO [address] [place] [address] PCP - General 12/20/06 Jensen Elizabeth MD [address] [place] [address] Referring Orthopedics 03/17/22 Luis Holliday MD [address] [place] [address] 57608 Home Care Provider Orthopedics 03/19/22 Lobster Fisherman Relationship Specialty Start Date End Date Giovanni Mclean V, DO [address] [place] [address] PCP - General 12/20/06 Jensen Elizabeth MD [address] [place] [address] Referring Orthopedics 03/17/22 Luis Holliday MD [address] [place] [address] 78681 Home Care Provider Orthopedics 03/19/22 Lobster Fisherman Relationship Specialty Start Date End Date Giovanni Mclean V, DO [address] [place] [address] PCP - General 12/20/06 Jensen Elizabeth MD [address] [place] [address] Referring Orthopedics 03/17/22 Luis Holliday MD [address] [place] [address] 14413 Home Care Provider Orthopedics 03/19/22 Lobster Fisherman Relationship Specialty Start Date End Date Giovanni Mclean V, DO [address] [place] [address] PCP - General 12/20/06 Jensen Elizabeth MD [address] [place] [address] Referring Orthopedics 03/17/22 Luis Holliday MD [address] [place] [address] 79381 Home Care Provider Orthopedics 03/19/22 Lobster Fisherman Relationship Specialty Start Date End Date Giovanni Mclean V, DO [address] [place] [address] PCP - General 12/20/06 Jensen Elizabeth MD [address] [place] [address] Referring Orthopedics 03/17/22 Luis Holliday MD [address] [place] [address] 69103 Home Care Provider Orthopedics 03/19/22 Lobster Fisherman Relationship Specialty Start Date End Date Giovanni Mclean V, DO [address] [place] [address] PCP - General 12/20/06 Jensen Elizabeth MD [address] [place] [address] Referring Orthopedics 03/17/22 Luis Holliday MD [address] [place] [address] 28200 Home Care Provider Orthopedics 03/19/22 Lobster Fisherman Relationship Specialty Start Date End Date Giovanni Mclean V, DO [address] [place] [address] PCP - General 12/20/06 Jensen Elizabeth MD [address] [place] [address] Referring Orthopedics 03/17/22 Luis Holliday MD [address] [place] [address] 48476 Home Care Provider Orthopedics 03/19/22 Lobster Fisherman Relationship Specialty Start Date End Date Giovanni Mclean V, DO [address] [place] [address] PCP - General 12/20/06 Jensen Elizabeth MD [address] [place] [address] Referring Orthopedics 03/17/22 Luis Holliday MD [address] [place] [address] 04570 Home Care Provider Orthopedics 03/19/22 Lobster Fisherman Relationship Specialty Start Date End Date Giovanni Mclean V, DO [address] [place] [address] PCP - General 12/20/06 Jensen Elizabeth MD [address] [place] [address] Referring Orthopedics 03/17/22 Luis Holliday MD [address] [place] [address] 32987 Home Care Provider Orthopedics 03/19/22 Lobster Fisherman Relationship Specialty Start Date End Date Giovanni Mclean V, DO [address] [place] [address] PCP - General 12/20/06 Jensen Elizabeth MD [address] [place] [address] Referring Orthopedics 03/17/22 Luis Holliday MD [address] [place] [address] 48065 Home Care Provider Orthopedics 03/19/22 Lobster Fisherman Relationship Specialty Start Date End Date Giovanni Mclean V DO [address] [place] [address] PCP - General 12/20/06 Jensen Elizabeth MD [address] [place] [address] Referring Orthopedics 03/17/22 Luis Holliday MD [address] [place] [address] 04591 Home Care Provider Orthopedics 03/19/22 Lobster Fisherman Relationship Specialty Start Date End Date Giovanni Mclean V, DO [address] [place] [address] PCP - General 12/20/06 Jensen Elizabeth MD [address] [place] [address] Referring Orthopedics 03/17/22 Luis Holliday MD [address] [place] [address] 10978 Home Care Provider Orthopedics 03/19/22 Lobster Fisherman Relationship Specialty Start Date End Date Giovanni Mclean V, DO [address] [place] [address] PCP - General 12/20/06 Jensen Elizabeth MD [address] [place] [address] Referring Orthopedics 03/17/22 Luis Holliday MD [address] [place] [address] 40690 Home Care Provider Orthopedics 03/19/22 Lobster Fisherman Relationship Specialty Start Date End Date Giovanni Mclean V, DO [address] [place] [address] PCP - General 12/20/06 Jensen Elizabeth MD [address] [place], [place] [id number] Referring Orthopedics 03/17/22 Luis Holliday MD [address] [address] Home Care Provider Orthopedics 03/19/22 FOR RECORDS PERTAINING TO PATIENTS WHO ARE OR HAVE BEEN ENROLLED IN A CHEMICAL DEPENDENCY/SUBSTANCEABUSE PROGRAM, SOME INFORMATION MAY BE OMITTED. This clinical summary was aggregated from multiple sources. Caution should be exercised in using it in the provision of clinical care. This summary normalizes information from multiple sources, and as a consequence, information in this document may materially change the coding, format and clinical context of patient data. In addition, data may be omitted in some cases. CLINICAL DECISIONS SHOULD BE BASED ON THE PRIMARY CLINICAL RECORDS. [facility] [employer] [facility]. provides no warranty or guarantee of the accuracy or completeness of information in this document.
[2025-07-11] MEDS: HYDROcodone Bitartrate/Apap 5/325 Tablet PO (14:28)
[2025-07-11 15:06] VITALS: BP 135/78; PULSE 76; RESP 16; O2SAT 97
[2025-07-11 15:58] LABS: Hematocrit 44.9 % (40-54); Hemoglobin 15.0 g/dL (13.0-16.5); Immature Granulocytes Count 0.140 X10^3/uL (0.0-0.0); Mean Corp Hgb Conc 33.4 g/dL (32-36); Mean Corpuscular Volume 85.9 fL (80-94); Mean Platelet Vol. 10.3 fl (6.2-12.0); NRBC Flagged by Analyzer 0 % (0-5); Platelet Count 238 K/mm3 (150-450); RBC Distribution Width CV 13.2 % (11.6-14.6); RBC Distribution Width SD 41.6 fl (35.1-43.9); Red Blood Count 5.23 M/mm3 (4.6-6.2); White Blood Count 16.4 K/mm3 (4.4-11.0)
[2025-07-11 16:14] LABS: Anion Gap 11 (5-15); BUN 19 mg/dL (4-19); BUN/Creat Ratio 25.5 RATIO (10-20); Calcium,Total 9.2 mg/dL (7.6-11.0); Carbon Dioxide 20.7 mmol/L (21.0-32.0); Chloride 106 mmol/L (98-108); Estimated Creatinine Clearance 96.12 ml/min (50-250); Glucose 109 mg/dL (70-99); Potassium 4.2 mmol/L (3.3-5.1)
[2025-07-11 16:28] VITALS: BP 135/78; PULSE 76; RESP 16; TEMP 36.6; O2SAT 97
--- OUTSIDE RECORDS SUMMARY | 2025-07-11 16:51 | XMS RPT_ITS | CCD ---
Author Organization [facility] Care Team Providers Care Deoiling Machine Operator Name Role Phone PARMINDER CROUCH Unavailable Unavailable Pinky VACA, Wei Munroe Unavailable Vinay Dunbar DO, Dennis Primary Care Provider Jensen Elizabeth MD Unavailable Parminder Crouch MD Unavailable [phone] Avis Milton PT Unavailable Luis Holliday MD Unavailable Vinay Dunbar DO, Dennis Primary Care Provider Jensen Elizabeth MD Unavailable Avis Milton PT Unavailable Luis Holliday MD Unavailable Vinay Dunbar DO [...] adverse reactions to drug (disorder) 1 Rash [facility] Repository Medications Current Medications Medication Drug [...] 81 MG TBEC One tablet daily ASPIRIN [id number] Wei Vance MD Comment on above: Take 81 mg by mouth once daily. Take 1 tablet by maria th twice daily for 28 days. betamethasone 3 mg/ml / betamethasone acetate 3 mg/ml injectable suspension (2 sources) Corticosteroid Start: End: betamethasone acetate-betamethason e sodium phosphate 6 mg injection (CELESTONE) bisacodyl 5 mg delayed release oral tablet (20 sources) Stimulant Laxative Start: End: Bisacodyl (DULCOLAX) 5 mg tab Indications: Screening for colon cancer Use as directed for Miralax / Gatorade Bowel Prep Kit 4 tablet 0 08/03/2021 12/08/2022 Discontinued (Course of therapy completed) Comment on above: Use as directed for Miralax / Gatorade Bowel Prep Kit 30 ml bupivacaine hydrochloride 5 mg/ml injection (2 sources) Amide Local Anesthetic Start: End: BUPivacaine (PF) 0.5 % (5 mg/mL) 4 mL injection cholecalciferol 0.025 mg oral capsule (20 sources) Vitamin D End: Cholecalciferol, Vitamin D3, (VITAMIN D) 25 mcg (1,000 unit) cap Take 1,000 Units by mouth once daily. 03/24/2025 Discontinued Comment on above: Take 1,000 Units by mouth once daily. docusate sodium 100 mg oral capsule (20 sources) Start: End: take 1 capsule by mouth twice daily docusate sodium (COLACE) 100 mg capsule Take 1 capsule by mouth twice daily. 15 capsule 03/17/2022 12:35 PM EDT 03/16/2022 03/27/2025 Discontinued Comment on above: Take 1 capsule by mo uth twice daily. Gatorade Sports Drink (20 sources) Start: End: Gatorade Sports Drink Indications: Screening for colon cancer Use as directed for Miralax / Gatorade Bowel Prep Kit 0 08/26/2021 12/08/2022 Discontinued (Course of therapy completed) Start: 08-26-2021 Gatorade Sport s Drink Indications: Screening for colon cancer Use as directed for Miralax / Gatorade Bowel Prep Kit 0 08/26/2021 Active Start: 08-03-2021 End: 08-26-2021 Gatorade Sports Drink Indica tions: Screening for colon cancer Use as directed for Miralax / Gatorade Bowel Prep Kit 0 08/03/2021 08/26/2021 Discontinued (Duplicate Entry) Comment on above: Use as directed for Miralax / Gatorade Bowel Prep Kit 10 ml lidocaine hydrochloride 10 mg/ml injection (2 sources) Antiarrhythmic, Amide Local Anesthetic Start: 4 End: 4 lidocaine (PF) 10 mg/mL (1 %) 4 mL injection (XYLOCAINE) losartan potassium 50 mg oral tablet (20 sources) Angiotensin 2 Receptor Ann Start: 1 End: 3 take 1 tablet by mouth twice daily losartan (COZAAR) 50 mg tablet Indications: Hypertension, essential Take 1 tablet by mouth twice daily. 30 tablet 2 08/03/2021 12/08/2022 Discontinued (Course of therapy completed) Comment on above: Take 1 tablet by maria th twice daily. ondansetron 4 mg oral tablet (20 sources) Serotonin-3 Receptor Antagonist Start: 2 End: 3 take 1 tablet by mouth every eight hours as needed ondansetron (ZOFRAN) 4 mg tablet Take 1 tablet by mouth every 8 hours as needed for nausea/vomiting. 5 tablet 0 03/16/2022 12/08/2022 Discontinued (Course of therapy completed) Comment on above: Take 1 tablet by maria th every 8 hours as needed for nausea/vomiting. oxyCODONE hydrochloride 5 mg oral tablet (20 sources) Opioid Agonist Start: 2 End: 3 oxyCODONE IR (ROXICODONE) 5 mg immediate release tablet Indications: Status post left knee replacement Take 1 or 2 tablets by mouth every 6-8 hours as needed for pain PATIENT IS SP MAJOR JOINT REPLACEMENT 60 tablet 0 03/28/2022 12/08/2022 Discontinued (Course of therapy completed) Comment on above: Take 1 tablet by maria th every 6 hours as needed for pain. Take 1 or 2 tablets by mouth every 6-8 hours as needed for pain PATIENT IS SP MAJOR JOINT REPLACEMENT perflutren lipid microspheres 1.3 mL in NaCl (PF) 0.9% 10 mL injection (DEFINITY) (20 sources) Start: 1 End: 2 perflutren lipid microspheres 1.3 mL in NaCl (PF) 0.9% 10 mL injection (DEFINITY) Start: 08-03-2021 End: 11-02-2022 perflutren lipid microsphere s 1.3 mL in NaCl (PF) 0.9% 10 mL injection (DEFINITY) polyethylene glycol 3350 01668 mg powder for oral solution (1 source) Osmotic Laxative Start: 08-03-2021 End: 11-21-2021 polyethylene glycol 3350 (MIRALAX, GLYCOLAX) 17 gram/dose powder Indications: Screening for colon cancer Use as directed for Miralax / Gatorade Bowel Prep Kit 238 g 0 08/03/2021 11/21/2021 Discontinued (Course of therapy completed) Comment on above: Use as directed for Miralax / Gatorade Bowel Prep Kit polyethylene glycol 3350 001066 mg / potassium chloride 2970 mg / sodium bicarbonate 6740 mg / sodium chloride 5860 mg / sodium sulfate 65857 mg powder for oral solution (20 sources) Osmotic Laxative Start: 11-21-2021 End: 12-08-2022 peg 3350-Electrolytes (GOLYTELY) 236-22.74-6.74 -5.86 gram suspension Indications: Colon cancer screening Refer to printed prep instructions from your provider. 4000 mL 0 11/21/2021 12/08/2022 Discontinued (Course of therapy completed) Comment on above: Refer to printed pre p instructions from your provider. 125 ml sodium chloride 9 mg/ml prefilled syringe (20 sources) Start: 08-03-2021 End: 11-05-2022 sodium chloride 0.9 % (flush) 10 mL (BD POSIFLUSH) Problems Active Problems Problem Classification Problem Date Documented Date Episodic/Chronic Disorders of lipid metabolism (1 source) Mixed hyperlipidemia; Translations: [Mixed hyperlipidemia] 10-10-2023 Chronic Essential hypertension (20 sources) Essential hypertension; Translations: [Essential (primary) hypertension] Onset: 08-03-2021 Chronic Genitourinary symptoms and ill-defined conditions (20 sources) Urinary incontinence; Translations: [Unspecified urinary incontinence] Onset: 09-15-2015 09-15-2015 Chronic Genitourinary symptoms and ill-defined conditions (1 source) Increased frequency of urination; Translations: [Frequency of micturition] Episodic Hyperplasia of prostate (20 sources) Benign prostatic hyperplasia; Translations: [Benign prostatic hyperplasia with lower urinary tract symptoms] Onset: 09-15-2015 09-15-2015 Chronic Osteoarthritis (20 sources) Osteoarthritis of right hip joint; Translations: [Unilateral primary osteoarthritis, right hip] Onset: 07-16-2018 07-16-2018 Chronic Other connective tissue disease (20 sources) History of repair of hip joint; Translations: [Presence of artificial hip joint, bilateral] Onset: 09-24-2018 04-26-2020 Chronic Other connective tissue disease (20 sources) History of total knee arthroplasty; Translations: [Presence of left artificial knee joint] Onset: 03-16-2022 Resolved: 06-02-2022 03-16-2022 Chronic Other connective tissue disease (1 source) Other specified soft tissue disorders; Translations: [Other specified soft tissue disorders] Onset: 08-27-2018 Episodic Other connective tissue disease (1 source) Disorder of rotator cuff; Translations: [Unspecified disorder of synovium and tendon, right shoulder] 04-11-2024 Episodic Other connective tissue disease (15 sources) Nontraumatic rotator cuff tear; Translations: [Unspecified rotator cuff tear or rupture of right shoulder, not specified as traumatic] Onset: 05-25-2025 10-23-2024 Episodic Other connective tissue disease (4 sources) Unspecified rotator cuff tear or rupture of right shoulder, not specified as traumatic; Translations: [Unspecified rotator cuff tear or rupture of right shoulder, not specified as traumatic] Onset: 12-16-2024 Episodic Other connective tissue disease (4 sources) Tear of right rotator cuff; Translations: [Unspecified rotator cuff tear or rupture of right shoulder, not specified as traumatic] 03-27-2025 Episodic Other lower respiratory disease (1 source) Dyspnea on exertion; Translations: [Dyspnea, unspecified] Episodic Other lower respiratory disease (1 source) Snoring; Translations: [Snoring] Episodic Other lower respiratory disease (1 source) Productive cough ; Translations: [Cough productive of purulent sputum] 09-30-2024 Episodic Other nervous system disorders (1 source) Partial thenar atrophy; Translations: [Carpal tunnel syndrome, unspecified upper limb] Onset: 10-27-2019 10-27-2019 Chronic Other nervous system disorders (2 sources) Carpal tunnel syndrome of left wrist; Translations: [Carpal tunnel syndrome, left upper limb] 08-22-2024 Chronic Other nervous system disorders (1 source) Carpal tunnel syndrome, left upper limb; Translations: [Left carpal tunnel syndrome] Onset: 09-09-2024 Chronic Other nervous system disorders (2 sources) Paresthesia of hand ; Translations: [Paresthesia of skin] 07-22-2024 Episodic Other non-traumatic joint disorders (2 sources) Pain in right shoulder; Translations: [Pain in joint, shoulder region] 04-10-2024 Episodic Other non-traumatic joint disorders (1 source) Arthritis of right wrist; Translations: [Primary osteoarthritis, right wrist] Onset: 10-27-2019 10-27-2019 Other nutritional; endocrine; and metabolic disorders (20 sources) Obese class I; Translations: [Obesity, unspecified] Onset: 03-16-2022 03-16-2022 Chronic Other screening for suspected conditions (not mental disorders or infectious disease) (1 source) Patient encounter status; Translations: [Encounter for screening for malignant neoplasm of prostate] 09-26-2023 Episodic Residual codes; unclassified (20 sources) Obstructive sleep apnea syndrome; Translations: [Obstructive sleep apnea (adult) (pediatric)] Onset: 04-26-2020 04-26-2020 Chronic Residual codes; unclassified (1 source) Obstructive sleep apnea (adult) (pediatric); Translations: [MYLENE (obstructive sleep apnea)] Onset: 03-16-2022 Chronic Residual codes; unclassified (11 sources) Past history of procedure; Translations: [Personal history of other medical treatment] Onset: 04-13-2025 04-13-2025 Episodic Residual codes; unclassified (1 source) Personal history of other medical treatment; Translations: [H/O echocardiogram] Onset: 04-13-2025 Episodic Spondylosis; intervertebral disc disorders; other back problems (20 sources) Degeneration of intervertebral disc; Translations: [Degeneration of intervertebral disc, site unspecified] Onset: 12-18-2006 12-18-2006 Chronic Unclassified (1 source) Physical Therapy Onset: 06-09-2025 Past or Other Problems Problem Classification Problem Date Documented Date Episodic/Chronic Other nervous system disorders (1 source) Paresthesia of skin; Translations: [Paresthesias in left hand] Onset: 08-18-2024 Episodic Other non-traumatic joint disorders (20 sources) Arthralgia of the pelvic region and thigh; Translations: [Pain in unspecified hip] Onset: 05-22-2011 05-22-2011 Episodic Residual codes; unclassified (1 source) Other specified postprocedural states; Translations: [History of carpal tunnel surgery of left wrist] Onset: 09-26-2024 Episodic Spondylosis; intervertebral disc disorders; other back problems (8 sources) Cervical radiculopathy; Translations: [Radiculopathy, cervical region] Onset: 03-24-2025 09-26-2024 Episodic Sprains and strains (20 sources) Rupture of tendon of biceps; Translations: [Strain of muscle, fascia and tendon of other parts of biceps, right arm, initial encounter] Onset: 12-17-2024 10-23-2024 Episodic Unclassified (1 source) Problem Results Test Name Value Interpretation Reference Range Facility CNTHERAPY 07-06-2025 CNTHERAPY OT/PT/Speech Visit (PTWS) SHIMON AMATO ([id number]) 1950 M Date Time Provider Department 07/06/25 2:45 PM CHERIE RESTREPO PTGERMÁN Date Time Provider Department Cody 07/06/2025 2:45 PM [id number], MARIAH PTWS Ilia Rodas Reason for Visit: Physical Therapy [503] Primary Visit Diagnosis:Nontraumati c tear of right rotator cuff, unspecified tear extent [M75.101] Allergies As of Date: 07/06/2025 Noted Allergy Reaction LATEX 02/09/2011 2 - Rash Date Reviewed: 06/04/2025 Reviewed by: Helio Cortez MD - Fully Assessed Prescriptions as of 07/07/2025 - ibuprofen (MOTRIN) 800 mg tablet Take [...] Take 1 tablet by mouth once daily. Normal [facility] CNTHERAPYon 06-23-2025 CNTHERAPY OT/PT/Speech Visit (PTWS) SAMREEN AMATOGERSON BERNARD ([id number]) 1950 M Date Time Provider Department 06/23/25 9:30 AM JUAN LAFLEUR PTWS Date Time Provider Department Center 06/23/2025 9:30 AM [id number], COREY PTWS Ilia Rodas Reason for Visit: PT Progress Note [1596] Primary Visit Diagnosis:Nontraumati c tear of right rotator cuff, unspecified tear extent [M75.101] Allergies As of Date: 06/23/2025 Noted Allergy Reaction LATEX 02/09/2011 2 - Rash Date Reviewed: 06/04/2025 Reviewed by: Helio Cortez MD - Fully Assessed Prescriptions as of 06/23/2025 - ibuprofen (MOTRIN) 800 mg tablet Take [...] Take 1 tablet by mouth once daily. Sap Data Architect: Addendum Therapy (PT/OT/Speech/Resp) ID: [id number] 06/23/2025 9:54 AM Author: JUAN LAFLEUR Signed by JUAN LAFLEUR PT on 06/23/2025 at 9:54 AM * * * This document replaces document [id number] * * * Document text: Program_ID:[id number] Access Code: [email or web address] URL: [email or web address]/ Date: 06-23-2025 Prepared By: Juan Lafleur Program [...] 4 sets - 10 reps ----- Normal [facility] THERAPY NTon 06-23-2025 THERAPY NT HNO ID: [id number] Author: JUAN LAFLEUR, SALVADOR Service: ? Author Type: Physical Therapist Type: Therapy (PT/OT/Speech/Resp) Filed: 06/23/2025 09:54 Note Text: Program_ID:[id number] Access Code: [email or web address] URL: [email or web address]/ Date: 06-23-2025 Prepared By: Juan Lafleur Program [...] - 4 sets - 10 reps Normal [facility] CNTHERAPYon 06-16-2025 CNTHERAPY OT/PT/Speech Visit (PTWS) SHIMON AMATO ([id number]) 1950 M Date Time Provider Department 06/16/25 10:15 AM CHERIE RESTREPO PTGERMÁN Date Time Provider Department Center 06/16/2025 10:15 AM [id number], MARIAH PTWS Ilia Rodas Reason for Visit: Physical Therapy [503] Primary Visit Diagnosis:Nontraumati c tear of right rotator cuff, unspecified tear extent [M75.101] Allergies As of Date: 06/16/2025 Noted Allergy Reaction LATEX 02/09/2011 2 - Rash Date Reviewed: 06/04/2025 Reviewed by: Helio Cortez MD - Fully Assessed Prescriptions as of 06/16/2025 - ibuprofen (MOTRIN) 800 mg tablet Take [...] Take 1 tablet by mouth once daily. Normal [facility] CNTHERAPYon 06-09-2025 CNTHERAPY OT/PT/Speech Visit (PTWS) SHIMON AMATO ([id number]) 1950 M Date Time Provider Department 06/09/25 11:00 AM JUAN LAFLEUR PTGERMÁN Date Time Provider Department [place] 06/09/2025 11:00 AM [id number], COREY PTWS Ilia Rodas Reason for Visit: Physical Therapy [503] Primary Visit Diagnosis:Nontraumati c tear of right rotator cuff, unspecified tear extent [M75.101] Allergies As of Date: 06/09/2025 Noted Allergy Reaction LATEX 02/09/2011 2 - Rash Date Reviewed: 06/04/2025 Reviewed by: Helio Cortez MD - Fully Assessed Prescriptions as of 06/09/2025 - ibuprofen (MOTRIN) 800 mg tablet Take [...] Take 1 tablet by mouth once daily. Sap Data Architect: Therapy (PT/OT/Speech/Resp) ID: [id number] 06/09/2025 11:33 AM Author: JUAN LAFLEUR Signed by JUAN LAFLEUR PT on 06/09/2025 at 11:33 AM Document text: Program_ID:[id number] Access Code: [email or web address] URL: [email or web address]/ Date: 06-09-2025 Prepared By: Juan Lafleur Program [...] 4 sets - 10 reps ----- Normal [facility] THERAPY NTon 06-09-2025 THERAPY NT HNO ID: [id number] Author: JUAN LAFLEUR PT Service: ? Author Type: Physical Therapist Type: Therapy (PT/OT/Speech/Resp) Filed: 06/09/2025 11:33 Note Text: Program_ID:[id number] Access Code: [email or web address] URL: [email or web address]/ Date: 06-09-2025 Prepared By: Juan Lafleur Program [...] - 4 sets - 10 reps Normal [facility] CNOVon 06-04-2025 CN Office Visit (AGPOB1 ) SHIMON AMATO ([id number]) 1950 M Date Time Provider Department 06/04/25 10:45 AM [facility] During your visit today, we recorded the following information about you: Respiration Weight Height 18/minute 97.5 kg 1.803 m Helio Cortez MD 06/04/2025 10:45 AM Signed Reason for Visit/Chief Complaint: Routine [...] stated procedure, doing well Plan: 1) Pain control-Tylenol/ibupr ofen as needed 2) PT-continue physical therapy focused on passive range of motion and then transitioning to active range of motion 3) Immobilization-okay to discontinue sling. 4) Ucjkir-nvzsvbp-yv lifting more than 5 pounds 5) Follow-up- Patient to follow up in 6 weeks Helio Cortez MD 06/04/2025 10:45 AM Referring Provider: SELF [200] Allergies As of Date: 06/04/2025 Noted Allergy Reaction LATEX 02/09/2011 2 - Rash Date Reviewed: 06/04/2025 Reviewed by: Helio Cortez MD - Fully Assessed Reason for Visit: Post Op [174] Follow Up [171] Pain [78] Primary Visit Diagnosis:Tear of right rotator cuff, unspecified tear extent, unspecified whether traumatic [M75.101] Prescriptions as of 06/04/2025 - ibuprofen (MOTRIN) 800 mg tablet Take [...] once daily. Problem List As Of Date 06/04/2025 Noted Resolved DISC DEGENERATION NOS [[id number]] 12/18/2006 Pain in joint, pelvic region and [...] biceps tendon [S46.21*04/10/2025 H/O echocardiogram [Z92.89] 04/13/2025 Nontraumatic tear of right rotator cuff [M75.10*05/25/2025 Disposition: Return in about 6 weeks (around 07/16/2025). Follow-up and Disposition History for Encounter Date Provider Department Center 06/04/2025 [id number] CORTEZ AGPOB1 [facility] Encounter Status:Closed by HELIO CORTEZ on 06/04/25 [facility] CNTHERAPYon 06-02-2025 CNTHERAPY OT/PT/Speech Visit (PTWS) SHIMON AMATO ([id number]) 1950 M Date Time Provider Department 06/02/25 7:45 AM JUAN LAFLEUR PTWS Date Time Provider Department Center 06/02/2025 7:45 AM [id number], COREY PTWS Ilia Rodas Reason for Visit: Physical Therapy [503] Primary Visit Diagnosis:Nontraumati c tear of right rotator cuff, unspecified tear extent [M75.101] Allergies As of Date: 06/02/2025 Noted Allergy Reaction LATEX 02/09/2011 2 - Rash Date Reviewed: 05/05/2025 Reviewed by: Helio Cortez MD - Fully Assessed Prescriptions as of 06/02/2025 - ibuprofen (MOTRIN) 800 mg tablet Take [...] Take 1 tablet by mouth once daily. Sap Data Architect: Addendum Therapy (PT/OT/Speech/Resp) ID: [id number] 06/02/2025 8:29 AM Author: JUAN LAFLEUR Signed by JUAN LAFLEUR PT on 06/02/2025 at 8:29 AM * * * This document replaces document [id number] * * * Document text: Program_ID:[id number] Access Code: [email or web address] URL: [email or web address] Date: 06-02-2025 Prepared By: Juan Lafleur Program [...] 4 sets - 10 reps ----- Normal [facility] THERAPY NTon 06-02-2025 THERAPY NT HNO ID: [id number] Author: JUAN LAFLEUR PT Service: ? Author Type: Physical Therapist Type: Therapy (PT/OT/Speech/Resp) Filed: 06/02/2025 08:29 Note Text: Program_ID:[id number] Access Code: [email or web address] URL: [email or web address] Date: 06-02-2025 Prepared By: Juan Lafleur Program [...] - 4 sets - 10 reps Normal [facility] [id number] 05-25-2025 [id number] HNO ID: [id number] Author: JUAN LAFLEUR PT Service: ? Author Type: Physical Therapist Type: [id number] Filed: 05/25/2025 12:12 Note Text: [facility] Physical Therapy Plan of Care Certification Patient Name: Shimon Amato : 1950 [facility] #: [id number] Date: 05/25/2025 To: Helio Cortez MD From [...] Goals for Episode of Care: established 05/25/25 [place] in home exercise program. Patient will decrease [...] Planned: 4 Planned Treatment Interventions: Therapeutic exercise (58887), Neuromuscular re-education (72052), Manual therapy (29146), Therapeutic activities (24511), Self-usp management (96237), Gait Training (08395), Patient/Family/Healthsource [place] jessica Education PLAN FOR NEXT VISIT: RCR protocol Patient demonstrates good understanding of plan of care and treatment. The above goals and plan of care were discussed and agreed upon by patient/family. For further details regarding this patient refer to the Physical Therapy electronically documented visit dated 05/25/2025. Provider Attestation I have reviewed the treatment plan for Shimon Amato, [facility]# [id number] for the period of 05/25/25 -- 07/20/25, established on 05/25/2025. Signature certifies the need for therapy services. Normal [facility] CNTHERAPYon 05-25-2025 CNTHERAPY OT/PT/Speech Visit (PTWS) LMSHIMON ([id number]) 1950 M Date Time Provider Department 05/25/25 11:30 AM JUAN LAFLEUR PTWS Date Time Provider Department Center 05/25/2025 11:30 AM [id number], COREY PTWS Ilia Rodas Reason for Visit: PT Kirstie [747] Visit Diagnosis:Nontraumati c tear of right [...] Take 1 tablet by mouth once daily. Sap Data Architect: Therapy (PT/OT/Speech/Resp) ID: [id number] 05/25/2025 11:54 AM Author: JUAN LAFLEUR Signed by JUAN LAFLEUR PT on 05/25/2025 at 11:54 AM Document text: Program_ID:[id number] Access Code: [email or web address] URL: [email or web address] Date: 05-25-2025 Prepared By: Juan Lafleur Program [...] 4 sets - 10 reps ----- Normal [facility] THERAPY NTon 05-25-2025 THERAPY NT HNO ID: [id number] Author: JUAN LAFLEUR PT Service: ? Author Type: Physical Therapist Type: Therapy (PT/OT/Speech/Resp) Filed: 05/25/2025 11:54 Note Text: Program_ID:[id number] Access Code: [email or web address] URL: [email or web address] Date: 05-25-2025 Prepared By: Juan Lafleur Program [...] - 4 sets - 10 reps Normal [facility] CNOVon 05-05-2025 CNOV Office Visit (AGHWG1 ) SHIMON AMATO ([id number]) 1950 M Date Time Provider Department 05/05/25 [...] Order(s):CONSULT TO PHYSICAL THERAPY [9032] Order #: [id number]: 1 FUTURE Prescriptions as of 05/05/2025 - [...] Date 05/05/2025 Noted Resolved DISC DEGENERATION NOS [[id number]] 12/18/2006 Pain in joint, pelvic region and [...] for Encounter Date Provider Department Center 05/05/2025 [id number] CORTEZ [facility]WG1 [facility] Encounter Status:Closed by HELIO CORTEZ on 05/05/25 [facility] ANES POSTPROC EVALon 025 ANES POSTPROC EVAL HNO ID: [id number] Author: LINCOLN ALFONSO MD Service: Anesthesiology Author Type: Anesthesiologist Type: Anesthesia Postprocedure Evaluation Filed: 04/20/2025 12:38 Note Text: POST ANESTHESIA EVALUATION NOTE : 1950 Procedure Summary Date: 04/20/25 Room / Location: [address] Anesthesia Start: 1019 Anesthesia Stop: 1213 [...] April 20, 2025 TIME: 12:38 PM CSN: [id number] Normal [facility] ANES PRE-OPon 04-20-2025 ANES PRE-OP HNO ID: [id number] Author: PRIETO DURANT MD Service: Anesthesiology Author Type: Anesthesiologist Type: Anesthesia Preprocedure Evaluation Filed: 04/20/2025 09:01 Note Text: ANESTHESIOLOGY DAY OF SURGERY NOTE : 1950 Procedure Information Date/Time: 04/20/25929 Procedures: ARTHROSCOPY SHOULDER ROTATOR CUFF (rotator cuff repair right shoulder)--Right shoulder arthroscopic rotator cuff repair, possible biceps tenodesis (Right: Shoulder) - GENERAL + BLOCK ARTHROSCOPY SHOULDER BICEPS TENODESIS (possible biceps tenodesis) (Right: Shoulder) Location: [place] [address] / [facility] Surgeons: Helio Cortez MD Estimated body mass [...] (97.2 ?F) 04/20/25 0759 SpO2 95 % 06/09/25 0759 Facility-Administered Medications as of 04/20/2025 Medication [...] April 20, 2025 TIME: 8:57 AM CSN: [id number] [facility] HISTORY PHYSICALon HISTORY PHYSICAL HNO ID: [id number] Author: HELIO CORTEZ MD Service: Orthopaedic Surgery [...] Shimon Amato DATE: 04/20/2025 TIME: 9:42 AM [facility] OPERATIVE NOon 04-20-2025 OPERATIVE NO HNO ID: [id number] Author: HELIO CORTEZ MD Service: Orthopaedic Surgery Author Type: Physician Type: Operative Report Filed: 04/20/2025 11:52 Note Text: ORTHOPAEDIC OPERATIVE REPORT PATIENT NAME: Shimon Amato Surgery/Procedure Date: 04/20/2025 Incision/Procedure Start Time: 10:38 AM Incision Close/Procedure End Time: 11:48 AM Surgeon(s) and [place] Hand(s): Surgeons and Role: * Helio Cortez MD [...] DATE: April 20, 2025 TIME: 11:48 AM [facility] 04-16-2025 [facility] Telephone (AGPOB1) SHIMON AMATO ([id number]) 1950 M Date Time Provider Department 04/16/25 HELIO CORTEZ AGNEOB1 During your visit today, we recorded the following information about you: Mariely Wilmot GrazynaSantana 04/16/2025 4:10 PM Signed Just spoke to [...] Date 04/16/2025 Noted Resolved DISC DEGENERATION NOS [[id number]] 12/18/2006 Pain in joint, pelvic region and [...] echocardiogram [Z92.89] 04/13/2025 Encounter Status:Closed by MARIELY ACREAGE REPORTER SANTANA WITT on 04/16/25 [facility] CNOVon 04-13-2025 CNOV Office Visit (AGHWN) SHIMON AMATO ([id number]) 1950 M Date Time Provider Department 04/13/25 2:15 PM SURESH SOTO AGHWN During your visit today, we recorded the [...] 5-14 Normal: PHQ-9 < 5 Data from [facility] Epic on prior therapies: PREVIOUS CONSERVATIVE TREATMENT: [...] (more content not included)... Normal [facility] HISTORY PHYSICALon HISTORY PHYSICAL HNO ID: [id number] Author: HAKEEM AGUDELO APRN.FILTER PRESS TENDER Service: ? Author Type: Nurse Practitioner Type: [...] which included preparing to see the patient, sggr-qt-nqph patient care, completing clinical documentation, obtaining and/or [...] Admin: COVID-19 vaccine, age 12+ yr, season (PFIZER-BIONTECH) 06/22/2022 Imm Admin: COVID-19 original vaccine, full dose, monovalent (MODE (more content not included)... Normal [facility] MRI CERVICAL SPINE WO IVCONo n [...] vertebrae with counting from the craniocervical junction. Zone Manager: [facility] Transcribe Date/Time: Mar 31 2025 1:08P Dictated by : JAKE MENG MD This examination was interpreted and the report reviewed and electronically signed by: JAKE MENG MD on Mar 31 2025 1:16PM EST [id number] Normal [facility] CNOVon 03-27-2025 CNOV Office Visit (AGOR ) BAXSTROM,SHIMON MARCO ANTONIO ([id number]) 1950 M Date Time Provider Department 03/27/25 10:45 AM SURESH SOTOAmada During your visit today, we recorded the [...] DO REFERRING PROVIDER: Helio Cortez [address] [facility] [address] [facility] [address] Subjective Chief Complaint: History of Present Illness: Mr.Brian Marco Antonio Aamto has a past medical history of hypertension, [...] 5-14 Normal: PHQ-9 < 5 Data from [facility] Epic on prior therapies: PREVIOUS CONSERVATIVE TREATMENT: [...] (99 kg) SpO2 96% BMI 30.44 kg/m? 03/16 motor strength in BUE and BLE SILT throughout extremities No [facility] signs Able to perform tandem gait Results: XR of cervical spine from 03/24/2025: 4 view cervical spine ordered, obtained, reviewed in office today demonstrating multilevel degenerative disc disease includi (more content not included)... Normal [facility] CNPNon 03-25-2025 CNPN Telephone (AGOR) SHIMON AMATO ([id number]) 1950 M Date Time Provider Department 03/25/25 SURESH SOTO [facility] During your visit today, we recorded the [...] Date 03/25/2025 Noted Resolved DISC DEGENERATION NOS [[id number]] 12/18/2006 Pain in joint, pelvic region and [...] Encounter Status:Closed by SARAH KAT on 03/25/25 [facility] Office Visit (AGHWG1 ) SHIMON AMATO ([id number]) 1950 M Date Time Provider Department 03/24/25 1:15 PM HELIO CORTEZ AGHWG1 During your visit today, we recorded the following information about you: Respiration Weight Height 18/minute 98 kg 1.803 m Helio Cortez MD 03/24/2025 3:56 PM Signed Helio Cortez MD Orthopedic Sports Medicine Surgery [address] [place] [address] [address] [address] [facility] [place] [address] [address] , [facility] [address], [place] [address] NAME: Shimon Amato : 1950 DATE: 03/24/2025 [...] (more content not included)... Normal [facility] XR CERV OTHER 4V AP/LAT/FLX/ EXTon 03-24-2025 4 view cervical spin e ordered, obtained, reviewed in office today demonstrating multilevel degenerative disc disease including significant joint space narrowing at C4-5 and spondylolisthesis at C6-7 [facility] RADIOLOG[facility] Radiology Study observation (narrative) [facility] Christen 03-12-2025 HAYES Telephone (AGPOB1) KESHASHIMON BAUTISTA ([id number]) 1950 M Date Time Provider Department 03/12/25 HELIO CORTEZ AGPOB1 During your visit today, we recorded the following information about you: Mariely Station Supervisor Santana Witt 03/12/2025 2:46 PM Signed I got a [...] Date 03/12/2025 Noted Resolved DISC DEGENERATION NOS [[id number]] 12/18/2006 Pain in joint, pelvic region and [...] [Z96.652] 04/05/2022 06/02/2022 Encounter Status:Closed by MARIELY ACREAGE REPORTER SANTANA WITT on 03/12/25 [facility] CNOVon 2024 CN Office Visit (AGHWG1 ) LMSHIMON ([id number]) 1950 M Date Time Provider Department 12/23/24 1:15 PM HELIO CORTEZ AGHWG1 During your visit today, we recorded the following information about you: Respiration Weight Height 16/minute 97.5 kg 1.803 m Helio Cortez MD 2024 3:27 PM Signed Helio Cortez MD Orthopedic Sports Medicine Surgery [address] [place] [address] [facility] [address] [place] [address] [place] [address] [place] [address] NAME: Shimon Amato : 1950 DATE: 2024 [...] (more content not included)... Normal [facility] MR Shoulder - right WO contr anny 12-17-2024 IMPRESSION: Rotator cuff tendinosis with full-thickness tear and retraction of the anterior supraspinatus tendon. No associated muscle atrophy. 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 [facility] Transcribe Date/Time: Dec 17 2024 11:08A Dictated by : ARUN TRINH MD This examination was interpreted and the report reviewed and electronically signed by: ARUN TRINH MD on Dec 17 2024 11:29AM [facility] DIVISION OF RADIOLOGY * * *Final Report* * * DATE OF EXAM: Dec 17 2024 9:40AM [facility] 0240 - MRI SHOULDER WO IVCON RT [...] No additional findings. DIVISION OF RADIOLOGY Provider, [facility] - 12/17/2024 * * *Final Report* * [...] tear of the long head biceps tendon. Zone Manager: [facility] Transcribe Date/Time: Dec 17 2024 11:08A Dictated by : ARUN TRINH MD This examination was interpreted and the report reviewed and electronically signed by: ARUN TRINH MD on Dec 17 2024 11:29AM EST [facility] Radiology Study observation (narrative) [facility] MR Shoulder - right WO contr astOrdered By: Ccf Provider on 12-17-2024 [facility] MRI SHOULDER WO IVCON RTon 0 12-17-2024 MRI SHOULDER WO IVCON RT * * *Final Report* * * DATE OF EXAM: Dec 17 2024 9:40AM [facility] 0240 - MRI SHOULDER WO IVCON RT [...] tear of the long head biceps tendon. Zone Manager: BILLY Transcribe Date/Time: Dec 17 2024 11:08A Dictated by : ARUN TRINH MD This examination was interpreted and the report reviewed and electronically signed by: ARUN TRINH MD on Dec 17 2024 11:29AM EST [id number] Normal [facility] CNOVon 12-16-2024 CNOV Office Visit (AGHWG1 ) SHIMON AMATO ([id number]) 1950 M Date Time Provider Department 12/16/24 1:15 PM HELIO CORTEZ AGHWG1 During your visit today, we recorded the following information about you: Respiration Weight Height 18/minute 97.5 kg 1.803 m Helio Cortez MD 12/16/2024 2:02 PM Signed Helio Cortez MD Orthopedic Sports Medicine Surgery [address] [place] [address] [facility] [address] [address] NAME: Shimon Amato : 1950 DATE: 12/16/2024 [...] encounter [S46.211A] Order(s):MRI SHOULDER WO IVCON RIGHT [[id number]] Order #: [id number] FUTURE Prescriptions as of 12/16/2024 - acetaminophen [...] (more content not included)... Normal [facility] PT D/C Summary (1)on 025 PT D/C Summary (1) [facility] Physical Therapy [facility] [address] [place] [address] [address] [place] [address] / REHABILITATION SERVICES DISCHARGE SUMMARY MR#: [id number] Acct: [id number] Name: SHIMON AMATO Rep #: [id number] : 1950 73 From: Rosalinda Kinsey PT, Cert. MDT Referring Dr.: OUT [facility] DOCTOR Status: REG R CR Insurance: MEDICARE PART A B [facility] Discharge Summary D/C summary: It has been [...] please feel free to call me at [phone]. Thank you for the referral of this patient. Sincerely, Rosalinda Kinsey, PT, Cert MDT Balance/Gait/Function al tests Balance/Special Test Scores Quick DASH Score: 25.0000 Improvement % Improvement: 40 12/15/24 1055 CC: No Primary Care Physician; HELIO CORTEZ PIO Signed Normal [facility] Re-Evaluation - PT (1)on Re-Evaluation - PT (1) [facility] Physical Therapy [facility] [address] [place] [address] [address] [place] [address] / REEVALUATION / MEDICARE RECERTIFICATION PHYSICAL THERAPY MR#: [id number] Acct: [id number] Name: SHIMON AMATO Rep #: [id number] : 1950 73 From: Rosalinda Kinsey PT, Cert. MDT Referring : OUT OF TOWN DOCTOR Status:REG RCR Insurance: [...] HE ALSO REPORTS CONSTANT R SHLD PAIN 2-7/10 AND STATES HE DOESN'T WANT TO KEEP DEALING WITH THE 7/10 PAIN BUT HE DOESN'T REALLY WANT TO [...] do not hesitate to contact me at [phone] by phone or if you have questions or concerns regarding this new plan of care! Sincerely, Rosalinda Kinsey, PT, Cert MDT 11/27/24 1142 CC: No Primary Care Physician; HELIO CORTEZ PIO Signed For Medicare only, by signing this I certify the plan of care. Physicians Signature Date Normal [facility] Inital Evaluation (1) - PTon 10-30-2024 Inital Evaluation (1) - PT [facility] Physical Therapy [facility] [address] [place] [address] / REHABILITATION SERVICES INITIAL EVALUATION MR#: [id number] Acct: [id number] Name: SHIMON AMATO Rep #: [id number] : 1950 73 From: Rosalinda Kinsey PT, [...] 4/5, IR 5/5, ER 4/5, ELBOW 5/5 RECRUITMENT DIRECTOR 65 LBS. L SHLD 5/5, ELBOW 5/5 RECRUITMENT DIRECTOR 65 LBS (L CTR 1 MONTH AGO). [...] swelling/inflammation T (more content not included)... [facility] Office Visit (AGPOB1 ) SHIMON AMATO ([id number]) 1950 M Date Time Provider Department 10/23/24 10:30 AM HELIO CORTEZ AGPOB1 During your visit today, we recorded the following information about you: Respiration Weight Height 20/minute 97.5 kg 1.803 m Helio Cortez MD 10/23/2024 12:45 PM Signed Helio Cortez MD Orthopedic Sports Medicine Surgery [address] [facility] [address], [facility] [address] [facility] [place] [address] [address], [facility] [address], [place] [address] NAME: Shimongerson Bernard Lm : 1950 DATE: 10/23/2024 Reason for Visit/Chief [...] - Fully Assessed Reason for Visit: New [775336] Pain [78] Primary Visit Diagnosis:Rupture of right proximal biceps tendon, initial encounter [S46.211A] Other Visit Diagnosis:Nontraumati c tear of right rotator cuff, unspecified tear extent [M75.101] Order(s):CONSULT TO PHYSICAL THERAPY [9032] Order #: [id number]: 1 FUTURE Prescriptions as of 10/23/2024 - acetaminophen (TYLENOL EXTRA STRENGTH) 500 mg tablet Take 2 tablets by mouth every 8 hours as needed for pain. - docusate sodium (COLACE) 100 mg capsule Take 1 capsule by mouth twice daily. - aspirin, enteric coated (ECOTRIN (more content not included)... Normal [facility] CNOVon 09-26-2024 CNOV Office Visit (AGHWW1 ) BAXSHIMON BAUTISTA ([id number]) 1950 M Date Time Provider Department 09/26/24 10:45 AM STEPHAN YUN AGHWW1 During your visit [...] start applying lotion with vitamin E, Vaseline, [place] butter, etc to help with scar healing. [...] Visit Diagnosis:Radiculopat hy, cervical [M54.12] Order(s):CONSULT TO [facility] [20000211] Order #: [id number]: 1 FUTURE Prescriptions as of 09/26/2024 - [...] Date 09/26/2024 Noted Resolved DISC DEGENERATION NOS [SCB4429] 12/18/2006 Pain in joint, pelvic region and [...] Encounter Status:Closed by KAT PALOMO on 09/26/24 [facility] ANES POSTPROC EVALon 024 ANES POSTPROC EVAL HNO ID: [id number] Author: KINGA EMANUEL MD Service: Anesthesiology Author Type: Anesthesiologist Type: Anesthesia Postprocedure Evaluation Filed: 09/09/2024 14:26 Note Text: POST ANESTHESIA EVALUATION NOTE : 1950 Procedure Summary Date: 09/09/24 Room / Location: [address] Anesthesia Start: 1345 Anesthesia Stop: 1416 Procedure: [...] September 09, 2024 TIME: 2:26 PM CSN: [id number] Normal [facility] ANES PRE-OPon 09-09-2024 ANES PRE-OP HNO ID: [id number] Author: KINGA EMANUEL MD Service: Anesthesiology Author Type: Anesthesiologist Type: Anesthesia Preprocedure Evaluation Filed: 09/09/2024 13:14 Note Text: ANESTHESIOLOGY DAY OF SURGERY NOTE Left carpal tunnel Aspirin Multivitamin Echo 2023 EF = 49% : 1950 Procedure Information Date/Time: 09/09/241399 Procedure: DECOMPRESSION NERVE MEDIAN CARPAL TUNNEL (Left: Wrist) Location: [place] [address] / [facility] Surgeons: Stephan Yun MD Estimated body mass [...] September 09, 2024 TIME: 12:34 PM CSN: [id number] Normal [facility] HISTORY PHYSICALon HISTORY PHYSICAL HNO ID: [id number] Author: WILFREDO SERRANO APRN.CNP Service: Anesthesiology Author Type: Nurse Practitioner Type: H&P Filed: 09/09/2024 13:40 Note Text: HISTORY AND PHYSICAL EXAMINATION SERVICE DATE: 09/09/2024 SERVICE TIME: 1:18 PM PRIMARY CARE PHYSICIAN: Giovanni Mclean DO Shimon Amato 1950 [id number] REASON FOR VISIT: Shimon Amato is a [...] (more content not included)... Normal [facility] NURSING PROGon 09-09-2024 NURSING PROG HNO ID: [id number] Author: TIAGO MCKEON, RN Service: Nursing Author Type: Registered Nurse Type: Nursing Progress Note Filed: 09/09/2024 12:56 Note Text: Dr Yun notified of splinter wound on operative side; Dr Yun in to see patient and okay to proceed as scheduled Normal [facility] OPERATIVE NOon 09-09-2024 OPERATIVE NO HNO ID: [id number] Author: STEPHAN YUN MD Service: Orthopaedic Surgery Author Type: Physician Type: Operative Report Filed: 09/09/2024 14:21 Note Text: Hand Surgery Operative Note PATIENT: Shimon Amato [id number] DATE OF SURGERY: 09/09/2024 PREOPERATIVE DIAGNOSES: Left carpal tunnel syndrome POSTOPERATIVE DIAGNOSES: Same OPERATION: Neuroplasty and/or transposition; median nerve at carpal tunnel - carpal tunnel open release Nerve block of the median nerve at the wrist ANESTHESIA: Local and MAC ATTENDING SURGEON: Stephan Yun MD POST HOLE DIGGER SURGEON: There were no qualified residents available to assist in the case Kat Palomo PA-C was the certified surgical assistant Under the supervision of the attending [...] throughout the entire procedure. 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 Normal [facility] EMG(NEURO/NI)on 08-18-2024 Results can be seen in attached scanned documents. If you are a patient reviewing this test result, call the doctor who ordered the test with any questions. [facility] Large Joint Arthro/Inj: R brand bacromial bursaon 04-11-2024 Giovanni Mclean V, DO 04/11/2024 10:19 AM Large Joint Arthro/Inj: R subacromial bursa Informed Consent Consent Obtained: Verbal [place] Protocol A moment to CARE was completed. [...] the patient voiced understanding of these instructions. [facility] Clin ic XR KNEE POST OP 3V AP/LAT/ME RCHANT LEFTon 04-07-2022 [facility] ic Basic metabolic 2000 panelon 03-17-2022 Anion gap [Moles/Vol] 12 mmol/L Normal 9-18 [facility] Comment on above: Order Comment: Speci men Type: BLOOD SPECIMENOrdering Facility: [facility] Address: [address] [place] [address] Performed By: #### 2 4321-2 ####[facility] LABORATORYCLIA [id number] [place] [address] [place] Calcium [Mass/Vol] 8.8 mg/dL Normal 8.5-10.2 [facility] Comment on above: Order Comment: Speci men Type: BLOOD SPECIMENOrdering Facility: [facility] Address: [address] [place] [address] Performed By: #### 2 4321-2 ####SHINTO LABORATORYCLIA [id number] [place] [id number] [place] Chloride [Moles/Vol] 107 mmol/L High 97-105 [facility] Comment on above: Order Comment: Speci men Type: BLOOD SPECIMENOrdering Facility: [facility] Address: [address] [place] [address] Performed By: #### 2 4321-2 ####SHINTO LABORATORYCLIA [id number] [place] [id number] [place] CO2 [Moles/Vol] 22 mmol/L Normal 22-30 [facility] Comment on above: Order Comment: Speci men Type: BLOOD SPECIMENOrdering Facility: [facility] Address: [address] [place] [address] Performed By: #### 2 4321-2 ####SHINTO LABORATORYCLIA [id number] [address] Creatinine [Mass/Vol] 0.81 mg/dL Normal 0.73-1.22 [facility] Comment on above: Order Comment: Speci men Type: BLOOD SPECIMENOrdering Facility: [facility] Address: [address] [place] [address] Performed By: #### 2 4321-2 ####SHINTO LABORATORYCLIA [id number] [address] ESTIMATED GLOMERULAR FILTRATION RATE 94 mL/min/1.73m??? Normal >=60 [facility] Comment on above: Order Comment: Speci men Type: BLOOD SPECIMENOrdering Facility: [facility] Address: [address] [place] [address] Result Comment: Lavonne mated Glomerular Filtration Rate [...] actual GFR. Performed By: #### 2 4321-2 ####SHINTO LABORATORYCLIA [id number] [place] [id number] [place] Glucose [Mass/Vol] 111 mg/dL High 74-99 [facility] Comment on above: Order Comment: Speci men Type: BLOOD SPECIMENOrdering Facility: [facility] Address: [address] [place] [address] Result Comment: The [place] Diabetes Association (ADA) provides guidance for cutoff [...] Standards of Medical Care in Diabetes 2016, [place] [employer] Association. Diabetes Care. 2016.39(Suppl 1). Performed By: #### 2 4321-2 ####SHINTO LABORATORYCLIA [id number] [place] [address] [place] Potassium [Moles/Vol] 3.8 mmol/L Normal 3.7-5.1 [facility] Comment on above: Order Comment: Rogelioi nithya Type: BLOOD SPECIMENOrdering Facility: [facility] Address: [address] [place] [address] Performed By: #### 2 4321-2 ####SHINTO LABORATORYCLIA [id number] [place] [address] [place] Sodium [Moles/Vol] 141 mmol/L Normal 136-144 [facility] Comment on above: Order Comment: Speci men Type: BLOOD SPECIMENOrdering Facility: [facility] Address: [address] [place] [address] Performed By: #### 2 4321-2 ####SHINTO LABORATORYCLIA [id number] [place] [address] [place] Urea nitrogen [Mass/Vol] 15 mg/dL Normal 9-24 [facility] Comment on above: Order Comment: Speci men Type: BLOOD SPECIMENOrdering Facility: [facility] Address: [address] [place], [place] [address] Performed By: #### 2 4321-2 ####SHINTO LABORATORYCLIA [id number] [address] [place] [address] CASE MANAGEMon 03-17-2022 CASE MANAGEM HNO ID: [id number] Author: Faina Dwyer RN Service: Care Management Author Type: Registered Nurse Type: Care Mgt Progress Note Filed: 03/17/2022 1:41 PM Note Text: CARE MANAGEMENT DISCHARGE NOTE SERVICE DATE: 03/17/2022 SERVICE TIME: 1257 LOS: 0 days Admission Date: 03/16/2022 DISCHARGE ARRANGEMENT (list agency and phone number) Discharge Arrangement: Home with Home Health Provider Name: [facility] Home Care CAREGIVER ASSESSMENT: Caregiver is ready, willing [...] 17, 2022 TIME: 1:39 PM PAGER/CONTACT #: [phone] Normal [facility] CBC panel Auto (Bld)on 03-17 Erythrocyte distribution width (RBC) [Ratio] 12.4 % Normal 11.5-15.0 [facility] Comment on above: Order Comment: Speci men Type: BLOOD SPECIMENOrdering Facility: [facility] Address: [address] [place] [id number] Performed By: #### 5 8410-2 ####SHINTO LABORATORYCLIA [id number] [address] [place] [address] Hematocrit (Bld) [Volume fraction] 42.1 % Normal 39.0-51.0 [facility] Comment on above: Order Comment: Speci men Type: BLOOD SPECIMENOrdering Facility: [facility] Address: [address] [place] [address] Performed By: #### 5 8410-2 ####SHINTO LABORATORYCLIA [id number] [address] [place] [address] [place] Hemoglobin (Bld) [Mass/Vol] 13.6 g/dL Normal 13.0-17.0 [facility] Comment on above: Order Comment: Speci men Type: BLOOD SPECIMENOrdering Facility: [facility] Address: [address] [place] [address] Performed By: #### 5 8410-2 ####SHINTO LABORATORYCLIA [id number] [address] [place] MCH (RBC) [Entitic mass] 29.4 pg Normal 26.0-34.0 [facility] Comment on above: Order Comment: Speci men Type: BLOOD SPECIMENOrdering Facility: [facility] Address: [address] [place] [address] Performed By: #### 5 8410-2 ####SHINTO LABORATORYCLIA [id number] [place] [id number] [facility] MCHC (RBC) [Mass/Vol] 32.3 g/dL Normal 30.5-36.0 [facility] Comment on above: Order Comment: Speci men Type: BLOOD SPECIMENOrdering Facility: [facility] Address: [address] [place] [address] Performed By: #### 5 8410-2 ####SHINTO LABORATORYCLIA [id number] [address] MCV (RBC) [Entitic vol] 91.1 fL Normal 80.0-100.0 [facility] Comment on above: Order Comment: Speci men Type: BLOOD SPECIMENOrdering Facility: [facility] Address: [address] [place] [address] Performed By: #### 5 8410-2 ####SHINTO LABORATORYCLIA [id number] [place] [address] [place] Nucleated RBC (Bld) [#/Vol] 10*3/uL Normal <0.01 [facility] Comment on above: Order Comment: Speci men Type: BLOOD SPECIMENOrdering Facility: [facility] Address: [address] [place] [address] Performed By: #### 5 8410-2 ####SHINTO LABORATORYCLIA [id number] [address] [place] Platelet mean volume (Bld) [Entitic vol] 11.3 fL Normal 9.0-12.7 [facility] [facility] Comment on above: Order Comment: Speci men Type: BLOOD SPECIMENOrdering Facility: [facility] Address: [address] [place] [address] Performed By: #### 5 8410-2 ####SHINTO LABORATORYCLIA [id number] [place] [address] [place] Platelets (Bld) [#/Vol] 217 10*3/uL Normal 150-400 [facility] Comment on above: Order Comment: Speci men Type: BLOOD SPECIMENOrdering Facility: [facility] Address: [address] [place] [address] Performed By: #### 5 8410-2 ####SHINTO LABORATORYCLIA [id number] [place] [address] [place] RBC (Bld) [#/Vol] 4.62 10*6/uL Normal 4.20-6.[address] [facility] Comment on above: Order Comment: Speci men Type: BLOOD SPECIMENOrdering Facility: [facility] Address: [address] [place] [address] Performed By: #### 5 8410-2 ####SHINTO LABORATORYCLIA [id number] [place] [id number] [facility] WBC (Bld) [#/Vol] 12.52 10*3/uL High 3.70-11.00 [facility] Comment on above: Order Comment: Speci men Type: BLOOD SPECIMENOrdering Facility: [facility] Address: [address] [place] [address] Performed By: #### 5 8410-2 ####SHINTO LABORATORYCLIA [id number] [place] [id number] [facility] CONSULT PROGon 03-17-2022 CONSULT PROG HNO ID: [id number] Author: West Crane MD Service: General Internal [...] meaning may be extrapolated by contextual derivation [facility] THERAPY NTon 03-17-2022 THERAPY NT HNO ID: [id number] Author: Zuri Duarte, OTR/L Service: Occupational Therapy Author Type: Occupational Therapist Type: Therapy (PT/OT/Speech/Resp) Filed: 03/17/2022 10:41 AM Note Text: Occupational Therapy Evaluation SERVICE DATE: 03/17/2022 SERVICE TIME: 0954 to 1034 ROOM: [place] [address] Recommended Discharge Disposition: Home Anticipated Discharge Needs: [...] +driving Patient Report: How do you spell anneli? CURRENT FUNCTIONAL STATUS: Most recent performance Current [...] of daily living (ADL) Interventions Provided: Evaluation;Self Fpc Management (30282) $ Evaluation-Low (80346) Billed Units: 1 unit Self Fpc Management (75591) Treatment Minutes: 25 $ Self Fpc Management (97350) Billed Units: 2 units Training AND education [...] complete details for this therapy evaluation/treatment. SIGNATURE: AWA Caicedo/L PATIENT NAME: Shimon Amato DATE: March 17, 2022 TIME: 10:40 AM [facility] THERAPY NT HNO ID: [id number] Author: Tiago Kearns, PT Service: Physical Therapy Author Type: Physical Therapist Type: Therapy (PT/OT/Speech/Resp) Filed: 03/17/2022 9:00 AM Note Text: Physical Therapy Treatment SERVICE DATE: 03/17/2022 SERVICE TIME: 813 to 852 ROOM: [address]- Recommended Discharge Disposition: Home PT Recommended Discharge [...] General Deviations/Observatio ns: Step length decreased;Sammie decreased JH-HLM: 8: Walk 250 feet or [...] Diagnosis: Reduced mobility-other Interventions Provided: Therapeutic Exercise (03989);Therapeutic Activity (03074);Gait Training (94212) Therapeutic Exercise (46400) Treatment Minutes: 15 $ Therapeutic Exercise (40279) Billed Units: 1 unit Therapeutic Activity (45486) Treatment Minutes: 10 $ Therapeutic Activity (15342) Billed Units: 1 unit Gait Training (37193) Treatment Minutes: 14 $ Gait Training (25039) Billed Units: 1 unit Training AND education [...] DATE: March 17, 2022 TIME: 8:59 AM [facility] ANE POSTPROC EVALon 022 ANE POSTPROC EVAL HNO ID: [id number] Author: Xavier Keating MD Service: Anesthesiology Author Type: Anesthesiologist Type: Anesthesia Postprocedure Evaluation Filed: 03/16/2022 10:41 AM Note Text: POST ANESTHESIA EVALUATION NOTE : 1950 Procedure Summary Date: 03/16/22 Room / Location: OR / OR Anesthesia Start: 0750 Anesthesia Stop: [...] March 16, 2022 TIME: 10:41 AM CSN: [id number] [facility] ANES PRE-OPon 03-16-2022 ANES PRE-OP HNO ID: [id number] Author: Xavier Keating MD Service: Anesthesiology Author Type: Anesthesiologist Type: Anesthesia Preprocedure Evaluation Filed: 03/16/2022 7:10 AM Note Text: ANESTHESIOLOGY DAY OF SURGERY NOTE : 1950 Procedure Information Date/Time: 03/16/22 0745 Procedure: ROBOTIC ASSISTED TOTAL KNEE ARTHROPLASTY (Left Knee) - [facility] Location: [address] Surgeons: Luis Holliday MD Estimated body mass [...] none. Vitals Value Taken Time BP 154/90 03/16/22650 Pulse Resp 17 03/16/22650 Temp 36.4 ?C (97.5 ?F) 03/16/22650 SpO2 96 % 03/16/22650 Facility-Administered Medications as of 03/16/2022 Medication Dose [...] March 16, 2022 TIME: 7:09 AM CSN: [id number] [facility] BRIEF OP NOTon 03-16-2022 BRIEF OP NOT HNO ID: [id number] Author: Jensen Elizabeth MD Service: Orthopaedic Surgery Author Type: Physician Type: Brief Op Note Filed: 03/16/2022 10:05 AM Note Text: BRIEF OP NOTE LOG ID: [id number] Surgery/Procedure Date: 03/16/2022 Incision/Procedure Start Time: 8:24 AM Incision Close/Procedure End Time: 10:00 AM Surgeon(s)/Procedural ist(s) and Ferry Hand(s): Surgeon(s) and Role: * Luis Holliday MD [...] recs, anticipated discharge POD1-2 Jensen Elizabeth MD [facility] CASE MGT INIT ASSESon 2021 CASE MGT INIT [facility] HNO ID: [id number] Author: Faina Dwyer RN Service: Care Management Author Type: Registered Nurse Type: Care Mgt Initial Assessment Filed: 03/16/2022 5:24 PM Note Text: CARE MANAGEMENT PROGRESS NOTE SERVICE DATE: 03/16/2022 SERVICE TIME: 1700 LOS: 0 days [place] of Choice Given: Yes Level of Care Discussed: Home Care Financial Disclosure Provided: Yes Financial Disclosure Comments: [facility] Provider list within the patient's requested [...] Current Advance Directive: Health Care Power of Academic Affairs Vice President In Chart: Yes Up To Date and Valid: Yes Patient lives with his . HE has DME(Walker w/wo wheels). Home health care referral placed with several options. No other needs at this time. CM will remain available for any further needs. SIGNATURE: Faina Dwyer RN PATIENT NAME: Shimon Amato DATE: March 16, 2022 TIME: 5:23 PM PAGER/CONTACT #: [phone] [facility] 03-16-2022 [facility] ID: [id number] Author: Luis Holliday MD Service: Orthopaedic Surgery [...] pre-admission details. The patient arrived at [facility] on the above date and [...] Department Center 04/07/2022 2:15 PM XR ORTHO [facility] REJ RGORAV REJ 04/07/2022 2:50 PM JUANITO Patel 07/18/2022 1:45 PM MD DESIREE Newsome REJ The p (more content not included)... [facility] CONSULTon 03-16-2022 CONSULT HNO ID: [id number] Author: West Crane MD Service: General Internal [...] Temp Temp src Pulse Resp SpO2 Height 03/16/22 2017 151/89 36.5 ?C (97.7 ?F) Oral 83 17 96 % ? 03/16/22 1558 132/82 36.7 ?C (98.1 ?F) Oral 67 17 95 % ? 03/16/22 1121 ? 180.3 cm (5 11) 03/16/22 1104 119/93 37.1 ?C (98.7 [...] Hip Hip Osteoa (more content not included)... [facility] OPERATIVE NOon 03-16-2022 OPERATIVE NO HNO ID: [id number] Author: Luis Holliday MD Service: Orthopaedic Surgery Author Type: Physician Type: Operative Report Filed: 03/16/2022 9:52 AM Note Text: OPERATIVE NOTE PATIENT NAME: Shimon Amato LOG ID: [id number] Surgery Date: 03/16/2022 Surgeon(s) and Ferry Hand(s): Surgeon(s) and Role: * Luis Holliday MD - Primary * Jensen Elizabeth MD - Fellow Physician Ferry Hand: Marco Antonio Jang PA-C There were no qualified residents available for this procedure. Please bill for Cj Elizabeth as visitor services information assistant BMI: Estimated body mass index is [...] * Missing case tracking time(s) * Attestation: Quarrying Manager closed, under direct supervision and the remainder [...] The patellar s (more content not included)... [facility] THERAPY NTon 03-16-2022 THERAPY NT HNO ID: [id number] Author: Tiago Kearns, PT Service: Physical Therapy Author Type: Physical Therapist Type: Therapy (PT/OT/Speech/Resp) Filed: 03/16/2022 2:25 PM Note Text: Physical Therapy Evaluation SERVICE DATE: 03/16/2022 SERVICE TIME: 1330 to 1417 ROOM: [place] [address] Recommended Discharge Disposition: Home PT Recommended Discharge [...] Reduced mobility-other Interventions Provided: Evaluation;Therapeuti c Exercise (97756);Gait Training (22513) $ Evaluation-Low (17840) Billed Units: 1 unit Therapeutic Exercise (65863) Treatment Minutes: 15 $ Therapeutic Exercise (51193) Billed Units: 1 unit Gait Training (18551) Treatment Minutes: 10 $ Gait Training (42164) Billed Units: 1 unit Training AND education [...] DATE: March 16, 2022 TIME: 2:24 PM [facility] CT KNEE WO IVCON LTon 2021 [...] images for the purposes of presurgical planning. Show Jumping Instructor: Bilateral resurfacing hip arthroplasties. Left hip: Resurfacing [...] images for the purposes of presurgical planning. Zone Manager: IBLLY Transcribe Date/Time: Feb 24 2022 9:18A Dictated by : ROSA DE LEON DO This examination was interpreted and the report reviewed and electronically signed by: ROSA DE LEON DO on Feb 24 2022 9:24AM EST [id number] [facility] No Panel Informationon 02-24 Fine Clin ic Bacteria Ur Culton 2 Bacteria identified Cx Nom (U) CULTURE, URINE: No growth (<1,000 CFU/ml) [facility] Comment on above: Performed By: #### 6 30-4 ####[facility] LABCLIA [id number] [facility] [place] [address] [place] CBC W Auto Differential pane l (Bld)on 02-22-2022 Basophils (Bld) [#/Vol] 0.04 10*3/uL Normal <0.11 [facility] Comment on above: Order Comment: Speci men Type: BLOOD SPECIMENOrdering Facility: [facility] Address: [address] [place] [address] Performed By: #### 5 7021-8 ####SHINTO LABORATORYCLIA [id number] [address] [place] [address] [place] Basophils/100 WBC (Bld) 0.6 % Normal [facility] Comment on above: Order Comment: Speci men Type: BLOOD SPECIMENOrdering Facility: [facility] Address: [address] [place] [address] Performed By: #### 5 7021-8 ####SHINTO LABORATORYCLIA [id number] [address] [place] [address] [place] Differential cell count method Nom (Bld) Auto Normal [facility] Comment on above: Order Comment: Speci men Type: BLOOD SPECIMENOrdering Facility: [facility] Address: [address] [place] [address] Performed By: #### 5 7021-8 ####SHINTO LABORATORYCLIA [id number] [address] [place] [address] [place] Eosinophils (Bld) [#/Vol] 0.11 10*3/uL Normal <0.46 [facility] Comment on above: Order Comment: Speci men Type: BLOOD SPECIMENOrdering Facility: [facility] Address: [address] [place] [address] Performed By: #### 5 7021-8 ####SHINTO LABORATORYCLIA [id number] [address] [place] [address] [place] Eosinophils/100 WBC (Bld) 1.6 % Normal [facility] Comment on above: Order Comment: Speci men Type: BLOOD SPECIMENOrdering Facility: [facility] Address: [address] [place] [address] Performed By: #### 5 7021-8 ####SHINTO LABORATORYCLIA [id number] [place] [address] [place] Erythrocyte distribution width (RBC) [Ratio] 12.9 % Normal 11.5-15.0 [facility] Comment on above: Order Comment: Speci men Type: BLOOD SPECIMENOrdering Facility: [facility] Address: [address] [place] [address] Performed By: #### 5 7021-8 ####SHINTO LABORATORYCLIA [id number] [place] [address] [place] Hematocrit (Bld) [Volume fraction] 47.5 % Normal 39.0-51.0 [facility] Comment on above: Order Comment: Speci men Type: BLOOD SPECIMENOrdering Facility: [facility] Address: [address] [place] [address] Performed By: #### 5 7021-8 ####SHINTO LABORATORYCLIA [id number] [place] [address] [place] Hemoglobin (Bld) [Mass/Vol] 15.1 g/dL Normal 13.0-17.0 [facility] Comment on above: Order Comment: Speci men Type: BLOOD SPECIMENOrdering Facility: [facility] Address: [address] [place], [place] [address] Performed By: #### 5 7021-8 ####SHINTO LABORATORYCLIA [id number] [place] [address] [place] IMMATURE GRAN % 0.3 % Normal [facility] Comment on above: Order Comment: Speci men Type: BLOOD SPECIMENOrdering Facility: [facility] Address: [address] [place], [place] [address] Performed By: #### 5 7021-8 ####SHINTO LABORATORYCLIA [id number] [address] [facility] IMMATURE GRAN ABS <0.03 Normal <0.10 [facility] Comment on above: Order Comment: Speci men Type: BLOOD SPECIMENOrdering Facility: [facility] Address: [address] [place] [address] Performed By: #### 5 7021-8 ####SHINTO LABORATORYCLIA [id number] [address] Lymphocytes (Bld) [#/Vol] 1.72 10*3/uL Normal 1.00-4.00 [facility] Comment on above: Order Comment: Speci men Type: BLOOD SPECIMENOrdering Facility: [facility] Address: [address] [place] [address] Performed By: #### 5 7021-8 ####SHINTO LABORATORYCLIA [id number] [address] Lymphocytes/100 WBC (Bld) 25.2 % Normal [facility] Comment on above: Order Comment: Speci men Type: BLOOD SPECIMENOrdering Facility: [facility] Address: [address] [place] [address] Performed By: #### 5 7021-8 ####SHINTO LABORATORYCLIA [id number] [place] [id number] [place] [facility] MCH (RBC) [Entitic mass] 29.0 pg Normal 26.0-34.0 [facility] Comment on above: Order Comment: Speci men Type: BLOOD SPECIMENOrdering Facility: [facility] Address: [address] [place] [address] Performed By: #### 5 7021-8 ####SHINTO LABORATORYCLIA [id number] [address] [place] MCHC (RBC) [Mass/Vol] 31.8 g/dL Normal 30.5-36.0 [facility] Comment on above: Order Comment: Speci men Type: BLOOD SPECIMENOrdering Facility: [facility] Address: [address] [place] [address] Performed By: #### 5 7021-8 ####SHINTO LABORATORYCLIA [id number] [place] [address] [place] MCV (RBC) [Entitic vol] 91.3 fL Normal 80.0-100.0 [facility] Comment on above: Order Comment: Speci men Type: BLOOD SPECIMENOrdering Facility: [facility] Address: [address] [place] [address] Performed By: #### 5 7021-8 ####SHINTO LABORATORYCLIA [id number] [place] [address] [place] Monocytes (Bld) [#/Vol] 0.76 10*3/uL Normal <0.87 [facility] Comment on above: Order Comment: Speci men Type: BLOOD SPECIMENOrdering Facility: [facility] Address: [address] [place] [address] Performed By: #### 5 7021-8 ####SHINTO LABORATORYCLIA [id number] [place] [address] [place] Monocytes/100 WBC (Bld) 11.1 % Normal [facility] Comment on above: Order Comment: Speci men Type: BLOOD SPECIMENOrdering Facility: [facility] Address: [address] [place], [place] [address] Performed By: #### 5 7021-8 ####SHINTO LABORATORYCLIA [id number] [place] [address] [place] Neutrophils (Bld) [#/Vol] 4.17 10*3/uL Normal 1.45-7.50 [facility] Comment on above: Order Comment: Speci men Type: BLOOD SPECIMENOrdering Facility: [facility] Address: [address] Performed By: #### 5 7021-8 ####SHINTO LABORATORYCLIA [id number] [place] [id number] [place] [facility] Neutrophils/100 WBC (Bld) 61.2 % Normal [facility] Comment on above: Order Comment: Speci men Type: BLOOD SPECIMENOrdering Facility: [facility] Address: [address] [place], [place] [address] Performed By: #### 5 7021-8 ####SHINTO LABORATORYCLIA [id number] [address] [place] [address] [place] Nucleated RBC (Bld) [#/Vol] 10*3/uL Normal <0.01 [facility] Comment on above: Order Comment: Speci men Type: BLOOD SPECIMENOrdering Facility: [facility] Address: [address] [place], [place] [address] Performed By: #### 5 7021-8 ####SHINTO LABORATORYCLIA [id number] [address] [place], [place] [address] [place] Nucleated RBC/100 WBC (Bld) [Ratio] 0.0 /100 WBC Normal [facility] Comment on above: Order Comment: Speci men Type: BLOOD SPECIMENOrdering Facility: [facility] Address: [address] [place], [place] [address] Performed By: #### 5 7021-8 ####SHINTO LABORATORYCLIA [id number] [place] [id number] [place] Platelet mean volume (Bld) [Entitic vol] 10.2 fL Normal 9.0-12.7 [facility] Comment on above: Order Comment: Speci men Type: BLOOD SPECIMENOrdering Facility: [facility] Address: [address] [place], [place] [address] Performed By: #### 5 7021-8 ####SHINTO LABORATORYCLIA [id number] [address] Platelets (Bld) [#/Vol] 250 10*3/uL Normal 150-400 [facility] Comment on above: Order Comment: Speci men Type: BLOOD SPECIMENOrdering Facility: [facility] Address: [address] [place] [address] Performed By: #### 5 7021-8 ####SHINTO LABORATORYCLIA [id number] [address] RBC (Bld) [#/Vol] 5.20 10*6/uL Normal 4.20-6.[address] [facility] Comment on above: Order Comment: Speci men Type: BLOOD SPECIMENOrdering Facility: [facility] Address: [address] [place] [address] Performed By: #### 5 7021-8 ####SHINTO LABORATORYCLIA [id number] [address] WBC (Bld) [#/Vol] 6.82 10*3/uL Normal 3.70-11.[address] [facility] Comment on above: Order Comment: Speci men Type: BLOOD SPECIMENOrdering Facility: [facility] Address: [address] [place] [address] Performed By: #### 5 7021-8 ####SHINTO LABORATORYCLIA [id number] [place] [address] [place] [facility] Abs Immature Gran <0.03 <0.10 k/uL [facility] Basophils (Bld) [#/Vol] 0.04 10*3/uL <0.11 k/uL [facility] Basophils/100 WBC (Bld) 0.6 % [facility] Differential cell count method Nom (Bld) Auto [facility] Eosinophils (Bld) [#/Vol] 0.11 10*3/uL <0.46 k/uL [facility] Eosinophils/100 WBC (Bld) 1.6 % [facility] Erythrocyte distribution width (RBC) [Ratio] 12.9 % 11.5 - 15.0 % [facility] Hematocrit (Bld) [Volume fraction] 47.5 % 39.0 - 51.0 % [facility] ic Hemoglobin (Bld) [Mass/Vol] 15.1 g/dL 13.0 - 17.0 g/dL [facility] Immature Gran % 0.3 % [facility] Lymphocytes (Bld) [#/Vol] 1.72 10*3/uL 1.00 - 4.00 k/uL [facility] Lymphocytes/100 WBC (Bld) 25.2 % [facility] MCH (RBC) [Entitic mass] 29.0 pg 26.0 - 34.0 pg [facility] MCHC (RBC) [Mass/Vol] 31.8 g/dL 30.5 - 36.0 g/dL [facility] MCV (RBC) [Entitic vol] 91.3 fL 80.0 - 100.0 fL [facility] Monocytes (Bld) [#/Vol] 0.76 10*3/uL <0.87 k/uL [facility] Monocytes/100 WBC (Bld) 11.1 % [facility] Neutrophils (Bld) [#/Vol] 4.17 10*3/uL 1.45 - 7.50 k/uL [facility] Neutrophils/100 WBC (Bld) 61.2 % [facility] Nucleated RBC (Bld) [#/Vol] 10*3/uL <0.01 k/uL [facility] Nucleated RBC/100 WBC (Bld) [Ratio] 0.0 /100 WBC [facility] Platelet mean volume (Bld) [Entitic vol] 10.2 fL 9.0 - 12.7 fL [facility] inic Platelets (Bld) [#/Vol] 250 10*3/uL 150 - 400 k/uL [facility] RBC (Bld) [#/Vol] 5.20 10*6/uL 4.20 - 6.0 0 m/uL [facility] WBC (Bld) [#/Vol] 6.82 10*3/uL 3.70 - 11. 00 k/uL [facility] Comprehensive metabolic 2000 panelon 02-22-2022 Albumin [Mass/Vol] 4.2 g/dL Normal 3.9-4.9 [facility] Comment on above: Order Comment: Speci men Type: BLOOD SPECIMENOrdering Facility: [facility] Address: [address] [place] [address] Performed By: #### 2 4323-8 ####SHINTO LABORATORYCLIA [id number] [address] [place], [place] [address] [place] ALP [Catalytic activity/Vol] 70 U/L Normal 38-113 [facility] Comment on above: Order Comment: Speci men Type: BLOOD SPECIMENOrdering Facility: [facility] Address: [address] [place] [address] Performed By: #### 2 4323-8 ####SHINTO LABORATORYCLIA [id number] [address] [place], [place] [address] [place] ALT [Catalytic activity/Vol] 24 U/L Normal 10-54 [facility] Comment on above: Order Comment: Speci men Type: BLOOD SPECIMENOrdering Facility: [facility] Address: [address] [place] [address] Performed By: #### 2 4323-8 ####SHINTO LABORATORYCLIA [id number] [place] [id number] [place] Anion gap [Moles/Vol] 10 mmol/L Normal 9-18 [facility] Comment on above: Order Comment: Speci men Type: BLOOD SPECIMENOrdering Facility: [facility] Address: [address] [place] [address] Performed By: #### 2 4323-8 ####SHINTO LABORATORYCLIA [id number] [address] [place], [place] [address] [place] AST [Catalytic activity/Vol] 27 U/L Normal 14-40 [facility] Comment on above: Order Comment: Speci men Type: BLOOD SPECIMENOrdering Facility: [facility] Address: [facility] [address] Performed By: #### 2 4323-8 ####SHINTO LABORATORYCLIA [id number] [address] [place], [place] [address] [place] Bilirubin [Mass/Vol] 0.6 mg/dL Normal 0.2-1.3 [facility] Comment on above: Order Comment: Speci men Type: BLOOD SPECIMENOrdering Facility: [facility] Address: [address] [place] [address] Performed By: #### 2 4323-8 ####SHINTO LABORATORYCLIA [id number] [place] [address] [place] Calcium [Mass/Vol] 9.1 mg/dL Normal 8.5-10.2 [facility] Comment on above: Order Comment: Speci men Type: BLOOD SPECIMENOrdering Facility: [facility] Address: [address] [place], [place] [address] Performed By: #### 2 4323-8 ####SHINTO LABORATORYCLIA [id number] [address] [place] [address] [place] Chloride [Moles/Vol] 105 mmol/L Normal 97-105 [facility] Comment on above: Order Comment: Speci men Type: BLOOD SPECIMENOrdering Facility: [facility] Address: [address] [place] [address] Performed By: #### 2 4323-8 ####SHINTO LABORATORYCLIA [id number] [place] [address] [place] CO2 [Moles/Vol] 24 mmol/L Normal 22-30 [facility] Comment on above: Order Comment: Speci men Type: BLOOD SPECIMENOrdering Facility: [facility] Address: [address] [place], [place] [id number] Performed By: #### 2 4323-8 ####SHINTO LABORATORYCLIA [id number] [place] [address] [place] Creatinine [Mass/Vol] 0.82 mg/dL Normal 0.73-1.22 [facility] Comment on above: Order Comment: Speci men Type: BLOOD SPECIMENOrdering Facility: [facility] Address: [address] [place] [address] Performed By: #### 2 4323-8 ####SHINTO LABORATORYCLIA [id number] [address] [place] ESTIMATED GLOMERULAR FILTRATION RATE 93 mL/min/1.73m??? Normal >=60 [facility] Comment on above: Order Comment: Andrea barriga Type: BLOOD SPECIMENOrdering Facility: [facility] Address: [address] [place] [address] Result Comment: Lavonne mated Glomerular Filtration Rate [...] actual GFR. Performed By: #### 2 4323-8 ####SHINTO LABORATORYCLIA [id number] [place] [address] [place] Glucose [Mass/Vol] 110 mg/dL High 74-99 [facility] Comment on above: Order Comment: Andrea barriga Type: BLOOD SPECIMENOrdering Facility: [facility] Address: [address] [place] [address] Result Comment: The [place] Diabetes Association (ADA) provides guidance for cutoff [...] Standards of Medical Care in Diabetes 2016, [place] [employer]. Diabetes Care. 2016.39(Suppl 1). Performed By: #### 2 4323-8 ####SHINTO LABORATORYCLIA [id number] [place] [address] [place] Potassium [Moles/Vol] 4.4 mmol/L Normal 3.7-5.1 [facility] Comment on above: Order Comment: Speci men Type: BLOOD SPECIMENOrdering Facility: [facility] Address: [address] [place] [address] Performed By: #### 2 4323-8 ####SHINTO LABORATORYCLIA [id number] [place] [address] [place] Protein [Mass/Vol] 6.9 g/dL Normal 6.3-8.0 [facility] Comment on above: Order Comment: Speci men Type: BLOOD SPECIMENOrdering Facility: [facility] Address: [address] [place] [address] Performed By: #### 2 4323-8 ####SHINTO LABORATORYCLIA [id number] [place] [address] [place] Sodium [Moles/Vol] 139 mmol/L Normal 136-144 [facility] Comment on above: Order Comment: Speci men Type: BLOOD SPECIMENOrdering Facility: [facility] Address: [address] [place] [address] Performed By: #### 2 4323-8 ####SHINTO LABORATORYCLIA [id number] [place] [address] [place] Urea nitrogen [Mass/Vol] 19 mg/dL Normal 9-24 [facility] Comment on above: Order Comment: Speci men Type: BLOOD SPECIMENOrdering Facility: [facility] Address: [address] [place] [address] Performed By: #### 2 4323-8 ####SHINTO LABORATORYCLIA [id number] [place] [id number] [place] Albumin [Mass/Vol] 4.2 g/dL 3.9 - 4.9 g/dL [facility] ALP [Catalytic activity/Vol] 70 U/L 38 - 113 U/L [facility] ALT [Catalytic activity/Vol] 24 U/L 10 - 54 U/L [facility] Anion gap [Moles/Vol] 10 mmol/L 9 - 18 mmol/L [facility] AST [Catalytic activity/Vol] 27 U/L 14 - 40 U/L [facility] Bilirubin [Mass/Vol] 0.6 mg/dL 0.2 - 1 .3 mg/dL [facility] Calcium [Mass/Vol] 9.1 mg/dL 8.5 - 10. 2 mg/dL [facility] Chloride [Moles/Vol] 105 mmol/L 97 - 10 5 mmol/L [facility] CO2 [Moles/Vol] 24 mmol/L 22 - 30 mmol/L [facility] Creatinine [Mass/Vol] 0.82 mg/dL 0.73 - 1.22 mg/dL [facility] Estimated Glomerular Filtration Rate 93 mL/min/1.73m >=60 mL/min/1.73m [facility] Glucose [Mass/Vol] 110 mg/dL High 74 - 99 mg/dL [facility] Potassium [Moles/Vol] 4.4 mmol/L 3.7 - 5.1 mmol/L [facility] Protein [Mass/Vol] 6.9 g/dL 6.3 - 8.0 g/dL [facility] Sodium [Moles/Vol] 139 mmol/L 136 - 144 mmol/L [facility] Urea nitrogen [Mass/Vol] 19 mg/dL 9 - 24 mg/dL [facility] TYPE AND SCREEN,30 DAYon ABO A [facility] ic HIstorical Ab Scr Status Negative [facility] Rh Nom (Bld) Positive Fine Cl inic ABO A [facility] Comment on above: Order Comment: Speci men Type: BLOOD SPECIMENOrdering Facility: [facility] Address: [address] [place] [address] Performed By: #### T SCR30 ####SHINTO BLOOD BANKCLIA [id number] [address] OF [facility] HISTORICAL AB SCR STATUS Negative [facility] Comment on above: Order Comment: Speci men Type: BLOOD SPECIMENOrdering Facility: [facility] Address: [address] [place] [address] Performed By: #### T SCR30 ####SHINTO BLOOD BANKCLIA [id number] [address] [place], [place] [address] [place] Rh Nom (Bld) Positive Normal [facility] Comment on above: Order Comment: Speci men Type: BLOOD SPECIMENOrdering Facility: [facility] Address: [address] [place] [address] Performed By: #### T SCR30 ####SHINTO BLOOD BANKCLIA [id number] [address] [place], [place] [address] [place] Urinalysis complete panel (U )on 02-22-2022 Bilirubin Ql (U) Negative Normal Negative [facility] Comment on above: Order Comment: Speci men Type: URINE SPECIMENOrdering Facility: [facility] Address: [address] [place] [address] Performed By: #### 2 4356-8 ####SHINTO LABORATORYCLIA [id number] [address] [place], [place] [address] [place] Clarity (Unsp spec) Clear Normal Clear [facility] Comment on above: Order Comment: Speci men Type: URINE SPECIMENOrdering Facility: [facility] Address: [address] [place] [address] Performed By: #### 2 4356-8 ####SHINTO LABORATORYCLIA [id number] [address] [place], [place] [address] [place] Color (U) Yellow Normal Yellow [facility] Comment on above: Order Comment: Speci men Type: URINE SPECIMENOrdering Facility: [facility] Address: [address] [place], [place] [address] Performed By: #### 2 4356-8 ####SHINTO LABORATORYCLIA [id number] [address] [place], [place] [address] [place] Glucose Test strip (U) [Mass/Vol] Negative Normal Negative [facility] Comment on above: Order Comment: Speci men Type: URINE SPECIMENOrdering Facility: [facility] Address: [address] [place] [address] Performed By: #### 2 4356-8 ####SHINTO LABORATORYCLIA [id number] [address] [place], [place] [address] [place] Hemoglobin Ql (U) Negative Normal Negative [facility] Comment on above: Order Comment: Speci men Type: URINE SPECIMENOrdering Facility: [facility] Address: [address] [place] [address] Performed By: #### 2 4356-8 ####SHINTO LABORATORYCLIA [id number] [address] [place], [place] [address] [place] [facility] Ketones Ql (U) Negative Normal Negative [facility] Comment on above: Order Comment: Speci men Type: URINE SPECIMENOrdering Facility: [facility] Address: [address] [place] [address] Performed By: #### 2 4356-8 ####SHINTO LABORATORYCLIA [id number] [address] [place], [place] [address] [place] Leukocyte esterase Test strip Ql (U) Negative Normal Negative [facility] Comment on above: Order Comment: Speci men Type: URINE SPECIMENOrdering Facility: [facility] Address: [address] [place] [address] Performed By: #### 2 4356-8 ####SHINTO LABORATORYCLIA [id number] [address] [place], [place] [address] [place] Nitrite Ql (U) Negative Normal Negative [facility] Comment on above: Order Comment: Speci men Type: URINE SPECIMENOrdering Facility: [facility] Address: [address] [place] [address] Performed By: #### 2 4356-8 ####SHINTO LABORATORYCLIA [id number] [address] [place], [place] [address] [place] pH (U) 6.0 [pH] Normal 5.0-8.0 [facility] Comment on above: Order Comment: Speci men Type: URINE SPECIMENOrdering Facility: [facility] Address: [address] [place] [address] Performed By: #### 2 4356-8 ####SHINTO LABORATORYCLIA [id number] [place] [address] [place] [facility] Protein (U) [Mass/Vol] Negative Normal Negative [facility] Comment on above: Order Comment: Speci men Type: URINE SPECIMENOrdering Facility: [facility] Address: [address] [place] [address] Performed By: #### 2 4356-8 ####SHINTO LABORATORYCLIA [id number] [place] [address] [place] RBC LM.HPF (Urine sed) [#/Area] 0-3 /HPF Normal 0-3 /HPF [facility] Comment on above: Order Comment: Speci men Type: URINE SPECIMENOrdering Facility: [facility] Address: [address] [place] [address] Performed By: #### 2 4356-8 ####SHINTO LABORATORYCLIA [id number] [address] [place] Specific gravity (U) [Rel density] 1.025 Normal 1.005-1.030 [facility] Comment on above: Order Comment: Speci men Type: URINE SPECIMENOrdering Facility: [facility] Address: [address] [place] [address] Performed By: #### 2 4356-8 ####SHINTO LABORATORYCLIA [id number] [place] [address] [place] Urobilinogen Ql (U) 0.2 EU/dL Normal 0.2-1.0 EU/dL [facility] Comment on above: Order Comment: Speci men Type: URINE SPECIMENOrdering Facility: [facility] Address: [address] [place], [place] [address] Performed By: #### 2 4356-8 ####SHINTO LABORATORYCLIA [id number] [address] WBC LM.HPF (Urine sed) [#/Area] 0-5 /HPF Normal 0-5 /HPF [facility] Comment on above: Order Comment: Speci men Type: URINE SPECIMENOrdering Facility: [facility] Address: [facility] [place] [phone] Performed By: #### 2 4356-8 ####SHINTO LABORATORYCLIA [id number] [address] Bilirubin Ql (U) Negative Negative [facility] Clarity (Unsp spec) Clear Clear [facility] Color (U) Yellow Yellow [facility] ic Glucose Test strip (U) [Mass/Vol] Negative Negative [facility] Hemoglobin Ql (U) Negative Negative [facility] Ketones Ql (U) Negative Negative [facility] Leukocyte esterase Test strip Ql (U) Negative Negative [facility] ic Nitrite Ql (U) Negative Negative [facility] pH (U) 6.0 [pH] 5.0 - 8.0 [facility] ic Protein (U) [Mass/Vol] Negative Negative [facility] RBC LM.HPF (Urine sed) [#/Area] 0-3 /HPF 0-3 /HPF [facility] Specific gravity (U) [Rel density] 1.025 1.005 - 1.030 [facility] Urobilinogen Ql (U) 0.2 EU/dL 0.2-1.0 EU/dL [facility] WBC LM.HPF (Urine sed) [#/Area] 0-5 /HPF 0-5 /HPF [facility] ANES Rosa 04-30-2020 ANES POST HNO ID: [id number] Author: Lorenzo Kauffman Service: Anesthesiology Author Type: [...] 30, 2020 TIME: 4:38 PM PAGER/CONTACT #: [phone] [facility] ANES PREOPon 04-30-2020 ANES PREOP HNO ID: [id number] Author: Derrick Wylie (Srna) Service: Anesthesiology Author Type: Student Type: Anesthesia PreOp Filed: 04/30/2020 10:47 AM Note Text: Attestation signed by Lorenzo Kauffman at 04/30/2020 12:19 PM agree [facility] ANESTHESIOLOGY DAY OF SURGERY NOTE PATIENT NAME: Shimon Amato : 1950 Procedure(s) (LRB): ARTHRODESIS WRIST [...] SURGICAL HISTORY OF Left 10/15/2014 [facility] H[facility] OF Right 2000 [...] injection (XYLOCAINE) 0.1-0.2 mL INTRADERMAL PRN Dalton Ortega) [place] - lactated ringers infusion 5-30 mL/hr INTRAVENOUS CONTINUOUS Dalton Ortega) [place] - ceFAZolin iv piggyback 2 g in D5W (iso-osmotic) 100 mL (ANCEF) 2 g INTRAVENOUS Pre-Op Once Dalton Ortega) [place] - midazolam (PF) 4 mg injection (VERSED) [...] DATE: April 30, 2020 TIME: 10:36 AM [facility] BRIEF OP NOTon 04-30-2020 BRIEF OP NOT HNO ID: [id number] Author: Stephan Mendez Service: Orthopaedic Surgery Author Type: Resident Type: Brief Op Note Filed: 04/30/2020 3:14 PM Note Text: BRIEF OP NOTE LOG ID: [id number] Surgery/Procedure Date: 04/30/2020 Incision/Procedure Start Time: 1:11 PM Incision Close/Procedure End Time: 2:58 PM Surgeon(s)/Procedural ist(s) and [place] Hand(s): Surgeon(s) and Role: * Sam House - [...] 30, 2020 TIME: 3:13 PM PAGER/CONTACT #: [facility] NURSING PROGon 04-30-2020 NURSING PROG HNO ID: [id number] Author: Ashlie Watson RN Service: ? Author Type: Registered Nurse Type: Nursing Progress Note Filed: 04/30/2020 3:40 PM Note Text: TLS drain intact. Suction maintained, draining small amount of serosanguinous drainage. [facility] OPERATIVE NOon 04-30-2020 OPERATIVE NO HNO ID: [id number] Author: Sam House Service: Orthopaedic Surgery Author Type: Physician Type: Operative Report Filed: 05/03/2020 12:45 PM Note Text: [facility] - Operative Report SHIMON AMATO : 1950 AGE: 69. SEX: M PATIENT TYPE: A HOSP SVC: OROR LOCATION: [facility] ATTENDING PHYSICIAN: JARAD NUMBER: [id number] DATE OF SURGERY/PROCEDURE: 04/30/2020 INCISION/PROCEDURE START TIME: 01:11 p.m. INCISION CLOSE/PROCEDURE END TIME: 02:58 p.m. PREOPERATIVE DIAGNOSIS: Right wrist osteoarthritis. POSTOPERATIVE DIAGNOSIS: Right wrist osteoarthritis. SURGEON: Sam House MD POST HOLE DIGGER: 1. Joel Lakhani M.D. 2. Stephan Mendez M.D. SURGERY/PROCEDURE: Right total wrist fusion. ANESTHESIA: Block with sedation. LOCATION: [place]. OPERATIVE INDICATIONS: The patient is a 69-year-old [...] appropriate screw lengths. The capsule was closed [id number] using 2-0 Vicryl suture. The EPL was [...] The removed carpal bones. Sam House MD SDM:[id number] /[id number] cc: [facility] PT EDon 04-30-2020 PT ED HNO ID: [id number] Author: Pricilla GonzalezRnYonatan Mclean RN Service: Nursing Author Type: Registered [...] Signed By: Pricilla Mclean RN In Department: [facility] SURGICAL SERVICES [facility] NURSING PROGon 04-26-2020 NURSING PROG HNO ID: [id number] Author: Luis GonzalezRnYonatan Collier RN Service: ? [...] Chloride 107 Covid scheduled 04/27/2020 review in [facility] Imaging Within Last 12 Months: X-ray Wrist right 10/27/2019 see [facility] Cardiac Testing: Exercise Nuclear Stress Test Date: 01/25/2018 , Comment: No ischemia, preserved EF see Care everywhere and also scanned in [facility] BMI Percentile (PEDS): N/A Risk Assessment: N/A Anesthesia Review: s/p uvulectomy Narrative: N/A Pre-op Considerations: Benign non-nodular prostatic hyperplasia with lower urinary tract symptoms: no rx MYLENE: s/p uvulectomy, no CPAP Chart Check: COMPLETE-Covid scheduled 04/27/2020 review in [facility] Luis Collier RN April 27, 2020 7:14 AM [facility] HOSPon 03-31-2020 HOSP Patient:Michelle Amato MRN: Height:5' [...] List: Degeneration of intervertebral disc, site unspecified [[id number]] Pain in joint, pelvic region and thigh [...] % 04/21/2020 51.0 39.0 Progress Notes ([facility]): Sam House MD 04/19/2020 2:24 PM Signed Follow up: R wrist HPI: Mr. Amat[facility]. Last visit we provided education on [...] patient was offered a surgery/procedure at a [facility] facility. The surgeon/proceduralist and patient [...] House MD April 19, 2020 2:[address] [facility] Clinical Summary: HMSPatient IDon 10-27-2019 [facility] Work Phone: Office Visit: New - visi t with practice, Rm: 5on 10-27-2019 NEGATED: Highlighted rowTobacco smoking status NHIS Tobacco smoking status NHIS [facility] Work Phone: US DVT LOWER BILon 8 US DVT LOWER LUMA * * *Final Report* * *DATE OF EXAM: Aug 27 2018 8:49AM MDU 1005 - US DVT LOWER LUMA / REASON: M79.89-Leg swelling * * * * Physician Interpretation * * * * Examination: US DVT LOWER BILHistory: Leg swelling . Right hip surgeryPlease fax to [phone] : US DVT LOWER BILComparison: NoneRESULTHigh resolution [...] knee.Left popliteal fossa cysts.Venous stasis right popliteal vein.Zone Manager : BILLY Transcribe Date/Time: Aug 27 2018 1:31PDictated by : YOEL GALLARDO MDThis examination was interpreted and the report reviewed and electronically signed by: YOEL GALLARDO MD on Aug 27 2018 1:34PM [id number] [facility] Vital Signs Date Time Vital Sign Value Performing Clinician Facility 06-04-2025 10:30-0400 Body height 180.3 cm Helio Cortez MD Work Phone: [facility] 06-04-2025 10:30-0400 Body mass index (BMI) [Ratio] 29.99 kg/m2 Helio Cortez MD Work Phone: [facility] 06-04-2025 10:30-0400 Body weight 97.52 kg Helio Cortez MD Work Phone: [facility] 06-04-2025 10:30-0400 Respiratory rate 18 /min Helio Cortez MD Work Phone: [facility] 05-05-2025 11:18-0400 Body height 185.4 cm eHlio Cortez MD Work Phone: [facility] 05-05-2025 11:18-0400 Body mass index (BMI) [Ratio] 28.37 kg/m2 Helio Cortez MD Work Phone: [facility] 05-05-2025 11:18-0400 Body weight 97.52 kg Helio Cortez MD Work Phone: [facility] 05-05-2025 11:18-0400 Respiratory rate 18 /min Helio Cortez MD Work Phone: [facility] 04-13-2025 13:23-0400 Body height 180.3 cm Suresh Soto MD Work Phone: [facility] 04-13-2025 13:23-0400 Body mass index (BMI) [Ratio] 29.99 kg/m2 Suresh Soto MD Work Phone: [facility] 04-13-2025 13:23-0400 Body weight 97.52 kg Suresh Soto MD Work Phone: [facility] 04-13-2025 13:23-0400 Respiratory rate 18 /min Suresh Soto MD Work Phone: [facility] 04-13-2025 11:25-0400 Body height 180.3 cm Pst 1 [facility] 04-13-2025 11:25-0400 Body mass index (BMI) [Ratio] 29.71 kg/m2 Pst 1 [facility] 04-13-2025 11:25-0400 Body temperature 97.3 [degF] Pst 1 [facility] 04-13-2025 11:25-0400 Body weight 96.62 kg Pst 1 [facility] 04-13-2025 11:25-0400 Diastolic blood pressure 89 mm[Hg] Pst 1 [facility] 04-13-2025 11:25-0400 Heart rate 75 /min Pst 1 [facility] 04-13-2025 11:25-0400 Respiratory rate 16 /min Pst 1 [facility] 04-13-2025 11:25-0400 SaO2% (BldA) [Mass fraction] 96 % Pst 1 [facility] 04-13-2025 11:25-0400 Systolic blood pressure 159 mm[Hg] Pst 1 [facility] 03-27-2025 10:39-0400 Body height 180.3 cm Suresh Soto MD Work Phone: [facility] 03-27-2025 10:39-0400 Body mass index (BMI) [Ratio] 30.44 kg/m2 Suresh Soto MD Work Phone: [facility] 03-27-2025 10:39-0400 Body weight 99 kg Suresh Soto MD Work Phone: [facility] 03-27-2025 10:39-0400 Diastolic blood pressure 80 mm[Hg] Suresh Soto MD Work Phone: [facility] 03-27-2025 10:39-0400 Heart rate 78 /min Suresh Soto MD Work Phone: [facility] 03-27-2025 10:39-0400 SaO2% (BldA) [Mass fraction] 96 % Suresh Soto MD Work Phone: [facility] 03-27-2025 10:39-0400 Systolic blood pressure 139 mm[Hg] Suresh Soto MD Work Phone: [facility] 03-24-2025 13:14-0400 Body height 180.3 cm Helio Cortez MD Work Phone: [facility] 03-24-2025 13:14-0400 Body mass index (BMI) [Ratio] 30.13 kg/m2 Helio Cortez MD Work Phone: [facility] 03-24-2025 13:14-0400 Body weight 97.98 kg Helio Cortez MD Work Phone: [facility] 03-24-2025 13:14-0400 Respiratory rate 18 /min Helio Cortez MD Work Phone: [facility] 2024 13:13-0500 Body height 180.3 cm Helio Cortez MD Work Phone: [facility] 2024 13:13-0500 Body mass index (BMI) [Ratio] 29.99 kg/m2 Helio Cortez MD Work Phone: [facility] 2024 13:13-0500 Body weight 97.52 kg Helio Cortez MD Work Phone: [facility] 2024 13:13-0500 Respiratory rate 16 /min Helio Cortez MD Work Phone: [facility] 12-16-2024 13:36-0500 Body height 180.3 cm Helio Cortez MD Work Phone: [facility] 12-16-2024 13:36-0500 Body mass index (BMI) [Ratio] 29.99 kg/m2 Helio Cortez MD Work Phone: [facility] 12-16-2024 13:36-0500 Body weight 97.52 kg Helio Cortez MD Work Phone: [facility] 12-16-2024 13:36-0500 Respiratory rate 18 /min Helio Cortez MD Work Phone: [facility] 10-23-2024 10:49-0500 Body height 180.3 cm Helio Cortez MD Work Phone: [facility] 10-23-2024 10:49-0500 Body mass index (BMI) [Ratio] 29.99 kg/m2 Helio Cortez MD Work Phone: [facility] 10-23-2024 10:49-0500 Body weight 97.52 kg Helio Cortez MD Work Phone: [facility] 10-23-2024 10:49-0500 Respiratory rate 20 /min Helio Cortez MD Work Phone: [facility] 09-26-2024 10:52-0500 Body height 180.3 cm Kat Curtis-Alexandria PA-C Work Phone: [facility] 09-26-2024 10:52-0500 Body mass index (BMI) [Ratio] 29.99 kg/m2 Yirrenzo Curtis-Alexandria PA-C Work Phone: [facility] 09-26-2024 10:52-0500 Body weight 97.52 kg Yirka Curtis-Alexandria PA-C Work Phone: [facility] 09-26-2024 10:52-0500 Respiratory rate 20 /min Yirka Curtis-Aelxandria PA-C Work Phone: [facility] 08-22-2024 10:41-0400 Body height 180.3 cm Stephan Yun MD Work Phone: [facility] 08-22-2024 10:41-0400 Body mass index (BMI) [Ratio] 29.29 kg/m2 Stephan Yun MD Work Phone: [facility] 08-22-2024 10:41-0400 Body temperature 98.29 [degF] Stephan Yun MD Work Phone: [facility] 08-22-2024 10:41-0400 Body weight 95.25 kg Stephan Yun MD Work Phone: [facility] 10-10-2023 14:38-0500 Body height 180.3 cm Giovannicarlota Mclean Manjinder, DO Work Phone: [facility] 10-10-2023 14:38-0500 Body temperature 97.59 [degF] Giovannicarlota Mclean Manjinder, DO Work Phone: [facility] 10-10-2023 14:38-0500 Body weight 101.06 kg Giovannicarlota Mclean Manjinder, DO Work Phone: [facility] 10-10-2023 14:38-0500 Diastolic blood pressure 87 mm[Hg] Giovannicarlota Mclean Manjinder, DO Work Phone: [facility] 10-10-2023 14:38-0500 Heart rate 88 /min Giovannicarlota Mclean Manjinder, DO Work Phone: [facility] 10-10-2023 14:38-0500 Respiratory rate 18 /min Giovannicarlota Mclean Manjinder, DO Work Phone: [facility] 10-10-2023 14:38-0500 SaO2% (BldA) [Mass fraction] 96 % Giovanni Mclean V, DO Work Phone: [facility] 10-10-2023 14:38-0500 Systolic blood pressure 145 mm[Hg] Giovannicarlota Mcelan Manjinder, DO Work Phone: [facility] 04-03-2022 10:04-0400 Body temperature 98.4 [degF] Avis Milton PT Work Phone: [facility] 04-03-2022 10:04-0400 Diastolic blood pressure 78 mm[Hg] Avis Milton PT Work Phone: [facility] 04-03-2022 10:04-0400 Heart rate 89 /min Avis Milton PT Work Phone: [facility] 04-03-2022 10:04-0400 Respiratory rate 17 /min Avis Milton PT Work Phone: [facility] 04-03-2022 10:04-0400 SaO2% (BldA) [Mass fraction] 96 % Avis Milton PT Work Phone: [facility] 04-03-2022 10:04-0400 Systolic blood pressure 122 mm[Hg] Avis Milton PT Work Phone: [facility] 03-31-2022 10:23-0400 Body temperature 98.01 [degF] Laly Lincoln [employer] Work Phone: [facility] 03-31-2022 10:23-0400 Diastolic blood pressure 82 mm[Hg] Laly Lincoln [employer] Work Phone: [facility] 03-31-2022 10:23-0400 Heart rate 100 /min Laly Lincoln [employer] Work Phone: [facility] 03-31-2022 10:23-0400 Respiratory rate 18 /min Laly Lincoln [employer] Work Phone: [facility] 03-31-2022 10:23-0400 SaO2% (BldA) [Mass fraction] 97 % Laly Lincoln [employer] Work Phone: [facility] 03-31-2022 10:23-0400 Systolic blood pressure 124 mm[Hg] Laly Lincoln [employer] Work Phone: [facility] 03-30-2022 13:12-0400 Body temperature 98.01 [degF] Laly Lnicoln [employer] Work Phone: [facility] 03-30-2022 13:12-0400 Diastolic blood pressure 84 mm[Hg] Laly Lincoln [employer] Work Phone: [facility] 03-30-2022 13:12-0400 Heart rate 100 /min Laly Lincoln [employer] Work Phone: [facility] 03-30-2022 13:12-0400 Respiratory rate 18 /min Laly Lincoln [employer] Work Phone: [facility] 03-30-2022 13:12-0400 SaO2% (BldA) [Mass fraction] 95 % Laly Lincoln [employer] Work Phone: [facility] 03-30-2022 13:12-0400 Systolic blood pressure 122 mm[Hg] Laly Lincoln [employer] Work Phone: [facility] 03-28-2022 09:09-0400 Body temperature 97.39 [degF] Laly Lincoln [employer] Work Phone: [facility] 03-28-2022 09:09-0400 Diastolic blood pressure 86 mm[Hg] Laly Lincoln [employer] Work Phone: [facility] 03-28-2022 09:09-0400 Heart rate 101 /min Laly Lincoln [employer] Work Phone: [facility] 03-28-2022 09:09-0400 Respiratory rate 18 /min Laly Lincoln [employer] Work Phone: [facility] 03-28-2022 09:09-0400 SaO2% (BldA) [Mass fraction] 95 % Laly Lincoln [employer] Work Phone: [facility] 03-28-2022 09:09-0400 Systolic blood pressure 140 mm[Hg] Laly Lincoln [employer] Work Phone: [facility] 03-23-2022 09:49-0400 Diastolic blood pressure 68 mm[Hg] Laly Lincoln [employer] Work Phone: [facility] 03-23-2022 09:49-0400 Heart rate 92 /min Laly Lincoln [employer] Work Phone: [facility] 03-23-2022 09:49-0400 SaO2% (BldA) [Mass fraction] 97 % Laly Lincoln [employer] Work Phone: [facility] 03-23-2022 09:49-0400 Systolic blood pressure 110 mm[Hg] Laly Lincoln [employer] Work Phone: [facility] 03-23-2022 09:00-0400 Body temperature 97.81 [degF] Laly Lincoln [employer] Work Phone: [facility] 03-22-2022 12:40-0400 Body temperature 97.7 [degF] Laly Lincoln [employer] Work Phone: [facility] 03-22-2022 12:40-0400 Diastolic blood pressure 78 mm[Hg] Laly Lincoln [employer] Work Phone: [facility] 03-22-2022 12:40-0400 Heart rate 101 /min Laly Lincoln [employer] Work Phone: [facility] 03-22-2022 12:40-0400 Respiratory rate 18 /min Laly Lincoln [employer] Work Phone: [facility] 03-22-2022 12:40-0400 SaO2% (BldA) [Mass fraction] 96 % Laly Lincoln [employer] Work Phone: [facility] 03-22-2022 12:40-0400 Systolic blood pressure 118 mm[Hg] Laly Lincoln [employer] Work Phone: [facility] 03-20-2022 15:35-0400 Body temperature 97.7 [degF] Avis Halderman-Galeana PT Work Phone: [facility] 03-20-2022 15:35-0400 Diastolic blood pressure 82 mm[Hg] Avis Halderman-Galeana PT Work Phone: [facility] 03-20-2022 15:35-0400 Heart rate 96 /min Avis Halderman-Galeana PT Work Phone: [facility] 03-20-2022 15:35-0400 Respiratory rate 18 /min Avis Halderman-Galeana PT Work Phone: [facility] 03-20-2022 15:35-0400 SaO2% (BldA) [Mass fraction] 96 % Avis Halderman-Galeana PT Work Phone: [facility] 03-20-2022 15:35-0400 Systolic blood pressure 130 mm[Hg] Avis Halderman-Galeana PT Work Phone: [facility] 03-18-2022 12:14-0400 Body temperature 97.2 [degF] William Knupp PT Work Phone: [facility] 03-18-2022 12:14-0400 Diastolic blood pressure 80 mm[Hg] William Knupp PT Work Phone: [facility] 03-18-2022 12:14-0400 Heart rate 91 /min William Knupp PT Work Phone: [facility] 03-18-2022 12:14-0400 Respiratory rate 18 /min William Knupp PT Work Phone: [facility] 03-18-2022 12:14-0400 SaO2% (BldA) [Mass fraction] 97 % William Knupp PT Work Phone: [facility] 03-18-2022 12:14-0400 Systolic blood pressure 142 mm[Hg] William Knupp PT Work Phone: [facility] 02-22-2022 10:12-0400 Body height 180.3 cm Pacc 2 Work Phone: [facility] 02-22-2022 10:12-0400 Body temperature 97.59 [degF] Pacc 2 Work Phone: [facility] 02-22-2022 10:12-0400 Body weight 98.02 kg Pacc 2 Work Phone: [facility] 02-22-2022 10:12-0400 Diastolic blood pressure 75 mm[Hg] Pacc 2 Work Phone: [facility] 02-22-2022 10:12-0400 Heart rate 73 /min Pacc 2 Work Phone: [facility] 02-22-2022 10:12-0400 Respiratory rate 18 /min Pacc 2 Work Phone: [facility] 02-22-2022 10:12-0400 Systolic blood pressure 130 mm[Hg] Pacc 2 Work Phone: [facility] NEGATED: Highlighted [id number] 10:04-0500 BMI (Body Mass Index) 29.67 kg/m2 Gisell Degarmo RT [facility] Work Phone: NEGATED: Highlighted [id number] 10:04-0500 Body weight 94.8 kg Gisell Degarmo RT [facility] Work Phone: NEGATED: Highlighted [id number] 10:04-0500 Body weight 95 kg Gisell Degarmo RT [facility] Work Phone: NEGATED: Highlighted [id number] 10:04-0500 BP Diastolic 82 mm[Hg] Gisell Degarmo RT [facility] Work Phone: NEGATED: Highlighted [id number] 10:04-0500 BP Systolic 120 mm[Hg] Gisell Degarmo RT [facility] Work Phone: NEGATED: Highlighted [id number] 10:04-0500 Height 179.07 cm Gisell Degarmo RT [facility] Work Phone: NEGATED: Highlighted [id number] 10:04-0500 Height 179 cm Gisell Degarmo RT [facility] Work Phone: NEGATED: Highlighted [id number] 10:04-0500 Pulse (Heart Rate) 67 /min Gisell Degarmo RT [facility] Work Phone: Encounters Encounter Date Encounter Type Care Provider Facility Start: 07-06-2025 End: 07-06-2025 ambulatory Cherie Restrepo [employer] [facility] Comment on above: Nontraumatic tear of right rotator cuff, unspecified tear extent (Primary Dx) Start: 06-23-2025 End: 06-23-2025 ambulatory Juan Lafleur PT Work Phone: [facility] Comment on above: Nontraumatic tear of right rotator cuff, unspecified tear extent (Primary Dx) Start: 06-16-2025 End: 06-16-2025 ambulatory HELIO CORTEZ Facility:[facility] Start: 06-09-2025 End: 06-09-2025 ambulatory Juan Lafleur PT Work Phone: [facility] Comment on above: Nontraumatic tear of right rotator cuff, unspecified tear extent (Primary Dx) Start: 06-04-2025 End: 06-04-2025 Patient encounter procedure Helio Cortez MD Work Phone: [facility] Comment on above: Tear of right rotato r cuff, unspecified tear extent, unspecified whether traumatic (Primary Dx) Start: 06-04-2025 End: 06-04-2025 ambulatory [facility] Facility[facility] Start: 06-02-2025 End: 06-02-2025 ambulatory Juan Lafleur PT Work Phone: [facility] Comment on above: Nontraumatic tear of right rotator cuff, unspecified tear extent (Primary Dx) Start: 05-25-2025 End: 05-25-2025 ambulatory Juan Lafleur PT Work Phone: [facility] Comment on above: Nontraumatic tear of right rotator cuff, unspecified tear extent Start: 05-05-2025 End: 05-05-2025 Patient encounter procedure Helio Cortez MD Work Phone: [facility] Comment on above: Tear of right rotato r cuff, unspecified tear extent, unspecified whether traumatic (Primary Dx) Start: 05-05-2025 End: 05-05-2025 ambulatory GIOVANNI MCLEAN Facility[facility] Start: 04-20-2025 End: 04-20-2025 ambulatory GIOVANNI VINAY Facility:[facility] Start: 04-16-2025 End: 04-16-2025 Telephone encounter Helio Cortez MD Work Phone: [facility] Comment on above: Preparations For Rebel bala (Arrival time confirmation) Start: 04-13-2025 End: 04-13-2025 Office outpatient visit 25 minutes Suresh Soto MD Work Phone: [facility] Comment on above: Cervical spondylosis with myelopathy Start: 04-13-2025 End: 04-13-2025 ambulatory SURESH SOTO Facility:[facility] Start: 04-13-2025 End: 04-13-2025 Admission to establishment [facility] 1 Pre Surgical Testing Start: 04-13-2025 End: 04-13-2025 Preprocedural examination done Pst 1 [facility] Work Phone: Start: 04-13-2025 End: 04-13-2025 ambulatory GIOVANNI MCLEAN Pre Surgical Testing Comment on above: Preop examination (P rimary Dx); Traumatic complete tear of right rotator cuff, subsequent encounter; Rupture of right proximal biceps tendon, initial encounter; MYLENE (obstructive sleep apnea); H/O echocardiogram; Hypertension, essential Start: 04-10-2025 Encounter for other preprocedural examination STEPHAN YUN [facility] Start: 04-10-2025 Preprocedural examin ation done Pst 1 [facility] Start: 03-31-2025 ambulatory SURESH SOTO Facili ty:[facility] Start: 03-27-2025 End: 03-27-2025 Office outpatient new 30 minutes Suresh Soto MD Work Phone: [facility] Comment on above: Spinal stenosis of c ervical region (Primary Dx); Tear of right rotator cuff, unspecified tear extent, unspecified whether traumatic Start: 03-27-2025 End: 03-27-2025 ambulatory SURESH SOTO Facility:[facility] Start: 03-25-2025 End: 03-25-2025 Telephone encounter Suresh Soto MD Work Phone: [facility] Comment on above: Appointment Traumatic complete t ear of right rotator cuff, subsequent encounter (Primary Dx); Rupture of right proximal biceps tendon, initial encounter Start: 03-24-2025 End: 03-24-2025 Patient encounter procedure Helio Cortez MD Work Phone: [employer] [facility] Comment on above: Radiculopathy, cervi jean (Primary Dx); Traumatic complete tear of right rotator cuff, subsequent encounter; Rupture of right proximal biceps tendon, initial encounter Start: 03-24-2025 End: 03-24-2025 ambulatory [facility] Start: 03-12-2025 End: 03-12-2025 Telephone encounter [facility] Comment on above: Appointment Start: 2024 End: 2024 Patient encounter procedure Helio Cortez MD Work Phone: [employer] Comment on above: Nontraumatic tear of right rotator cuff, unspecified tear extent (Primary Dx); Rupture of right proximal biceps tendon, initial encounter Start: 2024 End: [facility] Start: 12-17-2024 End: 12-17-2024 ambulatory HELIO CORTEZ Facility:[facility] Start: 12-17-2024 End: 12-17-2024 Subsequent hospital visit by physician [employer] [facility] W[facility] (I-Stat/1.5t) Work Phone: Radiology Comment on above: Nontraumatic tear of right rotator cuff, unspecified tear extent [M75.101] Start: 12-16-2024 End: 12-16-2024 Patient encounter procedure Helio Cortez MD Work Phone: [employer] [facility] Comment on above: Nontraumatic tear of right rotator cuff, unspecified tear extent (Primary Dx); Rupture of right proximal biceps tendon, initial encounter Start: 12-16-2024 End: 12-16-2024 ambulatory [facility] Start: 12-15-2024 End: 12-15-2024 ambulatory [facility] Facility:[facility] Start: 10-23-2024 End: 10-23-2024 ambulatory [facility] Facility[facility] Start: 10-23-2024 End: 10-23-2024 Patient encounter procedure Helio Cortez MD Work Phone: [facility] Comment on above: Rupture of right pro ximal biceps tendon, initial encounter (Primary Dx); Nontraumatic tear of right rotator cuff, unspecified tear extent Start: 09-30-2024 End: 09-30-2024 Orders Only Giovanni Mclean DO Work Phone: Orthopaedics Comment on above: Cough productive of purulent sputum (Primary Dx) Start: 09-26-2024 End: 09-26-2024 Patient encounter procedure Kat Palomo PA-C Work Phone: [facility] Comment on above: History of carpal tu nnel surgery of left wrist (Primary Dx); Radiculopathy, cervical Start: 09-26-2024 End: 09-26-2024 ambulatory KAT PALOMO Facility:[facility] Start: 09-09-2024 ambulatory STEPHAN Truong cility:[facility] Start: 08-22-2024 End: 08-22-2024 Patient encounter procedure Stephan Yun MD Work Phone: [facility] Comment on above: Carpal tunnel syndro me of left wrist (Primary Dx) Left carpal tunnel s yndrome (Primary Dx) Start: 08-22-2024 End: 08-22-2024 ambulatory STEPHAN YUN Facility[facility] Start: 08-18-2024 End: 08-18-2024 ambulatory GIOVANNI MCLEAN Neu[facility] Start: 08-18-2024 End: 08-18-2024 Patient encounter procedure Emg 1 Neur [place] [facility] (Max Weight: 850) Neurology Start: 07-22-2024 End: 07-22-2024 Orders Only Giovanni Mclean DO Work Phone: Orthopaedics Comment on above: Paresthesias in left hand (Primary Dx) Start: 05-21-2024 Telephone encounter Giovanni morgan DO Work Phone: Orthopaedics Comment on above: Appointment Start: 04-11-2024 End: 04-11-2024 Patient encounter procedure Giovnani Mclean DO Work Phone: [facility] Comment on above: Rotator cuff disorde r, right (Primary Dx) Start: 04-11-2024 End: 04-11-2024 Subsequent hospital visit by physician [facility] Ilia Mob Work Phone: Radiology Comment on above: Right shoulder pain, unspecified chronicity [M25.511] Start: 04-10-2024 Orders Only Giovanni Vinay Valencia O Work Phone: Orthopaedics Comment on above: Right shoulder pain, unspecified chronicity (Primary Dx) Start: 10-10-2023 End: 10-10-2023 Patient encounter procedure Giovanni Vinay DO Work Phone: [facility] Comment on above: Hypertension, essent ial (Primary Dx); Mixed hyperlipidemia; Benign prostatic hyperplasia without lower urinary tract symptoms Start: 09-26-2023 Orders Only Giovanni Valencia O Work Phone: Orthopaedics Comment on above: Hypertension, essent ial (Primary Dx); Screening for prostate cancer Start: 06-02-2022 End: 06-02-2022 ambulatory Deborah Lima PT Work Phone: [facility] Comment on above: Status post left kne e replacement (Primary Dx) Start: 05-29-2022 End: 05-29-2022 ambulatory Marsha Cervantester [employer] Work Phone: [facility] Comment on above: Status post left kne e replacement (Primary Dx) Start: 05-25-2022 End: 05-25-2022 ambulatory Marsha Natalio [employer] Work Phone: [facility] Comment on above: Status post left kne e replacement (Primary Dx) Start: 05-22-2022 End: 05-22-2022 ambulatory Marsha Natalio [employer] Work Phone: [facility] Comment on above: Status post left kne e replacement (Primary Dx) Start: 05-17-2022 End: 05-17-2022 ambulatory Marshasoren Cervantester [employer] Work Phone: [facility] Comment on above: Status post left kne e replacement (Primary Dx) Start: 05-11-2022 End: 05-11-2022 ambulatory Deborah Lima PT Work Phone: [facility] Comment on above: Status post left kne e replacement (Primary Dx) Start: 05-08-2022 End: 05-08-2022 ambulatory Marsha Lance [employer] Work Phone: [facility] Comment on above: Status post left kne e replacement (Primary Dx) Start: 05-03-2022 End: 05-03-2022 ambulatory Deborah Lima PT Work Phone: [facility] Comment on above: Status post left kne e replacement (Primary Dx) Start: 05-01-2022 End: 05-01-2022 ambulatory Marsha Lance [employer] Work Phone: [facility] Comment on above: Status post left kne e replacement (Primary Dx) Start: 04-26-2022 End: 04-26-2022 ambulatory Deborah Lima PT Work Phone: [facility] Comment on above: Status post left kne e replacement (Primary Dx) Start: 04-17-2022 End: 04-17-2022 ambulatory Deborah Lima PT Work Phone: [facility] Comment on above: Status post left kne e replacement (Primary Dx) Start: 04-13-2022 End: 04-13-2022 ambulatory Deborah Lima PT Work Phone: [facility] Comment on above: Status post left kne e replacement (Primary Dx) Start: 04-07-2022 End: 04-07-2022 Patient encounter procedure Castillo Allen PA-C Work Phone: Orthopaedics Comment on above: Status post left kne e replacement (Primary Dx); Status post unilateral knee replacement, left Start: 04-07-2022 End: 04-07-2022 Subsequent hospital visit by physician Blayne Vaca [facility] Rej Work Phone: Radiology Comment on above: Primary osteoarthrit is of left knee [M17.12] Start: 04-07-2022 End: 04-07-2022 ambulatory Deborah Lima PT Work Phone: [facility] Comment on above: Status post left kne e replacement (Primary Dx) Start: 04-05-2022 End: 04-05-2022 ambulatory Deborah Lima PT Work Phone: [facility] Comment on above: Status post left kne e replacement Start: 04-03-2022 Telephone encounter Avis Milton PT Work Phone: [facility] Comment on above: Home Care (agency d/ c) Start: 04-03-2022 End: 04-03-2022 Home visit Avis Milton PT Work Phone: [facility] Comment on above: PT AGENCY DC W VISIT Start: 03-31-2022 End: 03-31-2022 Home visit Laly Lincoln [employer] Work Phone: [facility] Comment on above: [employer] ROUTINE Start: 03-30-2022 End: 03-30-2022 Home visit Laly Lincoln [employer] Work Phone: [facility] Comment on above: TR[employer]MER [employer] ROUTINE Start: 03-28-2022 End: 03-28-2022 Home visit Laly Lincoln [employer] Work Phone: [facility] Comment on above: [employer]MER [employer] ROUTINE Start: 03-27-2022 Refill Luis ferreira MD Work Phone: Orthopaedics Comment on above: Refill Request Start: 03-23-2022 End: 03-23-2022 Home visit Laly Lincoln [employer] Work Phone: [facility] Comment on above: TR[employer]MER [employer] ROUTINE Start: 03-22-2022 End: 03-22-2022 Home visit Laly Lincoln [employer] Work Phone: [facility] Comment on above: TR[employer]MER [employer] ROUTINE Start: 03-20-2022 End: 03-20-2022 Home visit Avis Milton PT Work Phone: [facility] Comment on above: PT CASE MANAGEMENT V ISIT Start: 03-18-2022 End: 03-18-2022 Home visit William Canaswhit PT Work Phone: [facility] Comment on above: PT SOC Start: 03-17-2022 Telephone encounter Self [facility] Comment on above: Home Care Start: 02-24-2022 End: 02-24-2022 Orders Only Castillo Allen PA-C Work Phone: Orthopaedics Comment on above: Primary osteoarthrit is of left knee (Primary Dx) Primary osteoarthrit is of left knee [M17.12] Start: 02-24-2022 End: 02-24-2022 Patient [facility] Start: 02-23-2022 Orders Only Luis ferreira MD Work Phone: Orthopaedics Comment on above: Pre-op testing (Prim rizwana Dx) Start: 02-23-2022 Patient encounter status Pantera Holliday MD Work Phone: Orthopaedics Start: 02-22-2022 End: 02-22-2022 Admission to establishment [facility] Work Phone: [facility] Start: 02-22-2022 End: 02-22-2022 ambulatory [facility] Work Phone: Pre Anesthesia Comment on above: Pre-operative examin ation (Primary Dx); Osteoarthritis of left knee, unspecified osteoarthritis type; Hypertension, essential; Benign non-nodular prostatic hyperplasia with lower urinary tract symptoms; Urinary frequency; Snores Start: 02-22-2022 End: 02-22-2022 Preprocedural examination done [facility] 2 Work Phone: Pre Anesthesia Start: 08-05-2021 Telephone encounter Giovanni morgan DO Work Phone: Orthopaedics Comment on above: Orders Start: 10-27-2019 End: 10-27-2019 Patient encounter procedure Wei Vance MD Work Phone: [facility] Work Phone: Start: 08-27-2018 Patient encounter [facility]MINDER CROUCH [facility] Procedures Date Procedure Procedure Detail Performing [...] - S shivani or Plasma Giovanni Mclean V, DO Work Phone: Start: 04-07-2022 Radiologic examinati on knee 3 views Castillo Allen PA-C Work Phone: Start: 02-24-2022 Ct lower extremity w /o contrast material Castillo Allen PA-C Work Phone: Start: 02-22-2022 End: 02-22-2022 Antibody screen Pacc 2 Work Phone: Comment on above: Order Comment: Speci men Type: BLOOD SPECIMENOrdering Facility: [facility] Address: [address] [place] [address] Performed By: #### T SCR30 ####[facility]CL[facility] [id number] [address] [place] [address] [place] Start: 12-19-2021 Colonoscopy Giovanni morgan V, DO Work Phone: Start: 08-03-2021 Lipid [...] Activity Detail Author Start: 12-19-2031 Colonoscopy COLONOSCOPY [facility] Start: 12-19-2031 COLORECTAL CANCER SCREENING COLORECTAL CANCER SCREENING [facility] Start: 12-19-2031 Screening for malign ant neoplasm of colon [facility] Start: 09-27-2028 Lipid 1996 panel - Serum or Plasma Lipid Screening [facility] Start: 09-27-2028 Lipid panel Lipid Screening [facility] Start: 09-07-2027 Urine microalbumin profile DTaP,Tdap,Td Vaccine (7 - Tdap) [facility] Start: 09-27-2026 Diabetes Screening Diabetes Screenin g [facility] Start: 08-03-2026 Lipid 1996 panel - Serum or Plasma Lipid Screening [facility] Start: 08-03-2026 LIPID SCREEN LIPID SCREEN [facility] Start: 10-12-2025 End: 10-12-2025 Patient encounter procedure 10/12/2025 9:15 AM EST Office Visit [facility] [address] [place], [place] [phone] Suresh Soto MD [address] [phone] CERVICAL SPINE FU [facility] Comment on above: CERVICAL SPINE FU Start: 08-06-2025 End: 08-06-2025 Patient encounter procedure 08/06/2025 10:15 AM EDT Office Visit [facility] [address] [place] [address] Helio Cortez MD [address] [place] [address] RIGHT SHOULDER SX 04-20-25 [facility] Comment on above: RIGHT SHOULDER SX 04-20-25 Start: 07-27-2025 End: 07-27-2025 ambulatory 07/27/2025 8:45 AM EDT OT/PT/Speech Visit [facility] [address] [place] [address] Cherie Restrepo, TRIMMER MEAT [address] [place] [address] M75.101 (ICD-10-CM) - Nontraumatic tear of right rotator cuff, unspecified tear extent [facility] Comment on above: M75.101 (ICD-10-CM) - Nontraumatic tear of right rotator cuff, unspecified tear extent Start: 07-21-2025 End: 07-21-2025 ambulatory 07/21/2025 11:45 AM EDT OT/PT/Speech Visit [facility] [address] [place] [address] Cherie Restrepo, TRIMMER MEAT [address] [place] [address] M75.101 (ICD-10-CM) - Nontraumatic tear of right rotator cuff, unspecified tear extent [facility] Comment on above: M75.101 (ICD-10-CM) - Nontraumatic tear of right rotator cuff, unspecified tear extent Start: 07-17-2025 End: 07-17-2025 ambulatory 07/17/2025 9:30 AM EDT OT/PT/Speech Visit [facility] [address] [place] [address] Juan Lafleur, PT [address] [place], [place] [phone] M75.101 (ICD-10-CM) - Nontraumatic tear of right rotator cuff, unspecified tear extent [facility] Comment on above: M75.101 (ICD-10-CM) - Nontraumatic tear of right rotator cuff, unspecified tear extent Start: 07-13-2025 Influenza vaccination Influenza Vacc ine (#1) [facility] Start: 07-06-2025 End: 07-06-2025 ambulatory 07/06/2025 2:45 PM EDT OT/PT/Speech Visit [facility] [address] [place] [address] Cherie Restrepo, TRIMMER MEAT [address] [facility] [place] [address] M75.101 (ICD-10-CM) - Nontraumatic tear of right rotator cuff, unspecified tear extent [facility] Comment on above: M75.101 (ICD-10-CM) - Nontraumatic tear of right rotator cuff, unspecified tear extent Start: 06-23-2025 End: 06-23-2025 ambulatory 06/23/2025 9:30 AM EDT OT/PT/Speech Visit [facility] [address] [facility] [place] [address] Juan Lafleur, PT [address] [place], [place] [phone] M75.101 (ICD-10-CM) - Nontraumatic tear of right rotator cuff, unspecified tear extent [facility] Comment on above: M75.101 (ICD-10-CM) - Nontraumatic tear of right rotator cuff, unspecified tear extent Start: 06-16-2025 End: 06-16-2025 ambulatory 06/16/2025 10:15 AM EDT OT/PT/Speech Visit [facility] [address] [place] [address] Cherie Restrepo, TRIMMER MEAT [address] [place] [address] M75.101 (ICD-10-CM) - Nontraumatic tear of right rotator cuff, unspecified tear extent [facility] Comment on above: M75.101 (ICD-10-CM) - Nontraumatic tear of right rotator cuff, unspecified tear extent Start: 06-09-2025 End: 06-09-2025 ambulatory 06/09/2025 11:00 AM EDT OT/PT/Speech Visit [facility] [address] [place] [address] Juan Lafleur, PT [address] [place] [address] M75.101 (ICD-10-CM) - Nontraumatic tear of right rotator cuff, unspecified tear extent [facility] Comment on above: M75.101 (ICD-10-CM) - Nontraumatic tear of right rotator cuff, unspecified tear extent Start: 06-04-2025 End: 06-04-2025 Patient encounter procedure 06/04/2025 10:45 AM EDT Office Visit [facility] [address] [place] [address] Helio Cortez MD [address] [address] RIGHT SHOULDER SX 04-20-25 [facility] Comment on above: RIGHT SHOULDER SX 04-20-25 Start: 06-02-2025 End: 06-02-2025 ambulatory 06/02/2025 2:00 PM EDT OT/PT/Speech Visit [facility] [address] [place] [address] Cherie Restrepo, ANNE-MARIE [address] [place] [address] M75.101 (ICD-10-CM) - Nontraumatic tear of right rotator cuff, unspecified tear extent [facility] Comment on above: M75.101 (ICD-10-CM) - Nontraumatic tear of right rotator cuff, unspecified tear extent Start: 06-02-2025 End: 06-02-2025 Patient encounter procedure 06/02/2025 8:45 AM EDT Office Visit [facility] [address] [place] [address] Helio Cortez MD [address] [place] [address] RIGHT SHOULDER SX 04-20-25 [facility] Comment on above: RIGHT SHOULDER SX 04-20-25 Start: 05-05-2025 End: 05-05-2025 Patient encounter procedure 05/05/2025 11:00 AM EDT Office Visit [facility] [address] [place] [address] Helio Cortez MD [address] [place] [address] po rt shoulder sx 04/20 [facility] Comment on above: po rt shoulder sx 04/20 Start: 05-04-2025 End: 05-04-2025 Patient encounter procedure 05/04/2025 10:45 AM EDT Office Visit [facility] [address] [place] [address] Suresh Soto MD [address] [facility] [place] [phone] follow up after mri done 03/31 [facility] Comment on above: follow up after mri done 03/31 Start: 04-20-2025 End: 04-20-2025 Admission to same day surgery center 04/20/2025 9:30 AM EDT - 04/20/2025 11:00 AM EDT Surgery [facility] [address] [place] [address] Helio Cortez MD [address] [place] [address] ARTHROSCOPY SHOULDER ROTATOR CUFF (rotator cuff repair [...] physician 04/20/2025 9:30 AM EDT Hospital Encounter [facility] [address] [facility] [address] [place] [address] Helio Cortez MD [address] [place] [address] Traumatic complete tear of right rotator cuff, subsequent encounter [S46.011D], Rupture of right proximal biceps tendon, initial encounter [S46.211A] [facility] Comment on above: Traumatic complete t ear of right rotator cuff, subsequent encounter [S46.011D], Rupture of right proximal biceps tendon, initial encounter [S46.211A] Start: 04-13-2025 End: 04-13-2025 ambulatory 04/13/2025 11:20 AM EDT PAT Pre Surgical Testing [address] [place] [address] 1. ARTHROSCOPY SHOULDER ROTATOR CUFF (rotator cuff repair right shoulder)--Right shoulder arthroscopic rotator cuff repair, possible biceps tenodesis Pre Surgical Testing Comment on above: 1. ARTHROSCOPY SHOUL JAIME ROTATOR CUFF (rotator cuff repair right shoulder)--Right shoulder arthroscopic rotator cuff repair, possible biceps tenodesis Start: 03-31-2025 End: 03-31-2025 Patient encounter procedure 03/31/2025 12:00 PM EDT Appointment Radiology [address] [place] [address] MRI CERVICAL SPINE WO IVCON Radiology Comment on above: MRI CERVICAL SPINE W O IVCON Start: 03-24-2025 End: 03-24-2025 Patient encounter procedure 03/24/2025 1:15 PM EDT Office Visit [facility] [address] [place], [place] [address] Helio Cortez MD [address] [place], [place] [phone] F/u right shoulder- discuss surgery [facility] Comment on above: F/u right shoulder- discuss surgery Start: 03-17-2025 DIABETES SCREEN DIABETES SCREEN [facility] Start: 03-17-2025 Diabetes Screening Diabetes Screenin g [facility] Start: 02-22-2025 DIABETES SCREEN DIABETES SCREEN [facility] Start: 01-28-2025 Covid-19 Vaccine ( season) Covid-19 Vaccine ( season) [facility] Start: 2024 End: 2024 Patient encounter procedure 2024 1:15 PM EST Office Visit [facility] [address] [place], [place] [address] Helio Cortez MD [address] [place], [place] [phone] MRI Rt Shoulder [facility] Comment on above: MRI Rt Shoulder Start: 12-17-2024 End: 12-17-2024 Patient encounter procedure 12/17/2024 9:30 AM EST Appointment Radiology [address] [place] [address] MRI Shoulder WO IVCON Right Radiology Comment on above: MRI Shoulder WO IVCO N Right Start: 12-16-2024 End: 12-16-2024 Patient encounter procedure 12/16/2024 1:15 PM EST Office Visit [facility] [address] [place] [address] Helio Cortez MD [address] [place] [phone] R shoulder [facility] Comment on above: R shoulder Start: 11-19-2024 End: 11-19-2024 ambulatory 11/19/2024 8:30 AM EST OT/PT/Speech Visit [facility] [address] [place], [place] [phone] Jose Restrepo, PT [address] [place] [address] Nontraumatic tear of right rotator cuff, unspecified tear extent [M75.101] [facility] Comment on above: Nontraumatic tear of right rotator cuff, unspecified tear extent [M75.101] Start: 11-12-2024 Advance Directive Discussion Advance Directive Discussion [facility] Start: 10-23-2024 End: 10-23-2024 Patient encounter procedure 10/23/2024 10:30 AM EST Office Visit [facility] [address] [place] [address] Helio Cortez MD [address] [address] rt shoulder ref kat abarca [facility] Comment on above: rt shoulder ref kat etienne Start: 09-26-2024 End: 09-26-2024 Patient encounter procedure 09/26/2024 10:45 AM EST Office Visit [facility] [place] [address] Stephan Yun MD [address] [place] [address] LEFT WRIST SX 09/09 [facility] Comment on above: LEFT WRIST SX 09/09 Start: 09-09-2024 End: 09-09-2024 Admission to same day surgery center 09/09/2024 2:00 PM EDT - 09/09/2024 3:00 PM EDT Surgery [facility] [address] [facility] [address] [place] [address] Stephan Yun MD [address] [place] [address] DECOMPRESSION NERVE MEDIAN CARPAL TUNNEL [facility] Comment on above: DECOMPRESSION NERVE MEDIAN CARPAL TUNNEL Start: 09-09-2024 End: 09-09-2024 Neuroplasty &/transpos median nrv carpal tunne DECOMPRESSION NERVE MEDIAN CARPAL TUNNEL Left carpal tunnel syndrome 09/09/2024 2:00 PM EDT [facility] Start: 09-09-2024 Subsequent hospital visit by physician 09/09/2024 2:00 PM EDT Hospital Encounter [facility] [address] [facility] [address] [place] [address] Stephan Yun MD [address] [place] [address] Left carpal tunnel syndrome [G56.02] [facility] Comment on above: Left carpal tunnel s yndrome [G56.02] Start: 09-01-2024 End: 09-01-2024 Patient encounter procedure 09/01/2024 1:00 PM EDT Office Visit Orthopaedics [address] [place] [address] Tianna Gutierres PA-C [address] [place] [address] Left Carpal Tunnel Syndrome. Referred by Dr. Mclean. Orthopaedics Comment on above: Left Carpal Tunnel S yndrome. Referred by Dr. Mclean. Start: 08-22-2024 End: 08-22-2024 Patient encounter procedure 08/22/2024 11:00 AM EDT Office Visit [facility] [address] [place], [place] [address] Stephan Yun MD [address] [place], [place] [phone] L CARPAL TUNNEL - EMG 08/18/24 [facility] Comment on above: L CARPAL TUNNEL - EM G 08/18/24 Start: 08-03-2024 DIABETES SCREEN DIABETES SCREEN [facility] Start: 07-13-2024 Covid-19 Vaccine ( season) Covid-19 Vaccine () [facility] Start: 07-13-2024 Influenza vaccination Influenza Vacc ine (#1) [facility] Start: 04-11-2024 End: 04-11-2024 Patient encounter procedure 04/11/2024 10:00 AM EDT Office Visit [facility] [address] [place], [place] [phone] Giovanni Mclean V, DO [address] [place], [place] [phone] Right shoulder injury [facility] Comment on above: Right shoulder injur y Start: 12-25-2023 Covid-19 Vaccine () Covid-19 Vaccine () [facility] Start: 11-12-2023 Advance Directive Discussion Advance Directive Discussion [facility] Start: 11-12-2023 Behavioral Health Screening Behavioral Health Screening [facility] Start: 09-26-2023 End: 12-26-2023 CBC W Auto Differential panel - Blood CBC + DIFF Lab Routine Hypertension, essential Expected: 09/26/2023, Expires: 12/26/2023 [facility] Work Phone: Comment on above: Expected: 09/26/2023 , Expires: 12/26/2023 Start: 09-26-2023 End: 12-26-2023 Comprehensive metabolic 2000 panel - Serum or Plasma COMP METABOLIC PANEL Lab Routine Hypertension, essential Expected: 09/26/2023, Expires: 12/26/2023 [facility] Work Phone: Comment on above: Expected: 09/26/2023 , Expires: 12/26/2023 Start: 09-26-2023 End: 12-26-2023 LIPID PANEL, NONFASTING LIPID PANEL, NONFASTING Lab Routine Hypertension, essential Expected: 09/26/2023, Expires: 12/26/2023 [facility] Work Phone: Comment on above: Expected: 09/26/2023 , Expires: 12/26/2023 Start: 09-26-2023 End: 12-26-2023 PSA/PROSTSPECAG SCRN PSA/PROSTSPECAG SCRN Lab Routine Screening for prostate cancer Expected: 09/26/2023, Expires: 12/26/2023 [facility] Work Phone: Comment on above: Expected: 09/26/2023 , Expires: 12/26/2023 Start: 07-13-2023 Covid-19 Vaccine ( season) Covid-19 Vaccine () [facility] Start: 07-13-2023 Influenza vaccination Influenza Vacc ine (#1) [facility] Start: 04-03-2023 BP CONTROLLED (<130/80) BP CONTROLLE D (<130/80) [facility] Start: 03-23-2023 BP CONTROLLED (<130/80) BP CONTROLLE D (<130/80) [facility] Start: 11-12-2022 Advance Directive Discussion Advance Directive Discussion [facility] Start: 11-12-2022 Depression Assessment Depression Ass essment [facility] Start: 07-13-2022 Influenza vaccination INFLUENZA (#1) [facility] Start: 02-22-2022 End: 04-24-2022 Bacteria identified in Urine by Culture [facility] Work Phone: Comment on above: Expected: 02/22/2022 , Expires: 04/24/2022 Start: 03-16-2022 COVID-19 VACCINE (4 - Booster for Moderna series) COVID-19 VACCINE (4 - Booster for Moderna series) [facility] Start: 11-12-2021 ADVANCE DIRECTIVE DISCUSSION ADVANCE DIRECTIVE DISCUSSION [facility] Start: 11-12-2019 Medicare Annual Wellness Visit Medicare Annual Wellness Visit [facility] Start: 10-27-2019 End: 10-27-[address] [facility] Work Phone: Start: 2014 Pneumococcal Vaccine : 65+ (1 - PCV) Pneumococcal Vaccine: 65+ (1 - PCV) [facility] Start: 2014 Pneumococcal Vaccine : 65+ (1 of 1 - PCV) Pneumococcal Vaccine: 65+ (1 of 1 - PCV) [facility] Start: 2014 PNEUMOCOCCAL: 65+ (1 - PCV) PNEUMOCOCCAL: 65+ (1 - PCV) [facility] Start: 2014 PNEUMOVAX AGE 65 AND OVER WITH 5YR LOOKBACK (#1) PNEUMOVAX AGE 65 AND OVER WITH 5YR LOOKBACK (#1) [facility] Start: 2009 RSV Vaccine (1 - 1-d ose 60+ series) RSV Vaccine (1 - 1-dose 60+ series) [facility] Start: 1999 Pneumococcal Vaccine : 50+ (1 of 1 - PCV) Pneumococcal Vaccine: 50+ (1 of 1 - PCV) [facility] Start: 1999 SHINGRIX VACCINE (1 of 2) SHINGRIX VACCINE (1 of 2) [facility] Start: 1994 COLOGUARD (FIT-DNA) COLOGUARD (FIT-D NA) [facility] Start: [address] COLONOGRAPHY [facility] Start: 1994 FECAL OCCULT BLOOD FECAL OCCULT BLOO D [facility] Start: 1994 Screening for malign ant neoplasm of colon [facility] Start: 1994 SIGMOIDOSCOPY SIGMOIDOSCOPY [facility] Start: 09-25-1990 Urine microalbumin profile [facility] Start: 1967 ANNUAL PCP TEAM AIX SYSTEM ADMINISTRATOR GEREMIAS DISEASE VISIT ANNUAL PCP TEAM CHRONIC DISEASE VISIT [facility] Start: 1967 Anxiety Screening Anxiety Screening [facility] Start: 1967 BP CONTROLLED (<130/80) BP CONTROLLE D (<130/80) [facility] Start: 1967 Depression Screening Depression Scre ening [facility] Start: 1967 HEPATITIS C SCREENING HEPATITIS C [facility] Start: 1967 Hepatitis C screening Hepatitis C [facility] Start: 1961 Adult depression screening assessment DEPRESSION SCREENING [facility] End: 02-22-2023 ECG COMPLETE ECG COMPLETE ECG Routine Pre-operative examination Hypertension, essential Osteoarthritis of left knee, unspecified osteoarthritis type Benign non-nodular prostatic hyperplasia with lower urinary tract symptoms Urinary frequency 1 Occurrences starting 02/22/2022 until 02/22/2023 [facility] Work Phone: Comment on above: 1 Occurrences starti ng 02/22/2022 until 02/22/2023 End: 07-22-2025 EMG(NEURO/NI) EMG(NEURO/NI) EMG Routine Paresthesias in left hand 1 Occurrences starting 07/22/2024 until 07/22/2025 [facility] Work Phone: Comment on above: 1 Occurrences starti ng 07/22/2024 until 07/22/2025 H&P for surgery H&P FOR SURGERY Procedures Routine Traumatic complete tear of right rotator cuff, subsequent encounter Rupture of right proximal biceps tendon, initial encounter Ordered: 03/25/2025 [facility] Work Phone: Comment on above: Ordered: 03/25/2025 End: 04-26-2026 MR Cervical spine WO contrast MRI CERVICAL SPINE WO IVCON Radiology Routine Spinal stenosis of cervical region 1 Occurrences starting 03/27/2025 until 04/26/2026 [facility] Work Phone: Comment on above: 1 Occurrences starti ng 03/27/2025 until 04/26/2026 End: 01-15-2026 MR Shoulder - right WO contrast MRI SHOULDER WO IVCON RIGHT Radiology Routine Nontraumatic tear of right rotator cuff, unspecified tear extent Rupture of right proximal biceps tendon, initial encounter 1 Occurrences starting 12/16/2024 until 01/15/2026 [facility] Work Phone: Comment on above: 1 Occurrences starti ng 12/16/2024 until 01/15/2026 PT PLAN OF CARE CERTIFICATION PT PLAN OF CARE CERTIFICATION Procedures Routine Status post left knee replacement Ordered: 04/06/2022 [facility] Work Phone: Comment on above: Ordered: 04/06/2022 PT PLAN OF CARE CERTIFICATION PT PLAN OF CARE CERTIFICATION Procedures Routine Status post left knee replacement Ordered: 05/04/2022 [facility] Work Phone: Comment on above: Ordered: 05/04/2022 SARS-CoV-2 (COVID-19 ) RNA [Presence] in Respiratory specimen by STANISLAV with probe detection SELF CHECK COVID Microbiology Routine Pre-op testing Ordered: 02/23/2022 [facility] Work Phone: Comment on above: Ordered: 02/23/2022 SARS-CoV-2 (COVID-19 ) RNA [Presence] in Respiratory specimen by STANISLAV with probe detection SELF CHECK COVID Microbiology Routine Primary osteoarthritis of left knee Ordered: 02/24/2022 [facility] Work Phone: Comment on above: Ordered: 02/24/2022 End: 05-10-2025 XR Shoulder - right 3 Views XR SHOULDER GENERAL 3V OR MORE AP/TRUE AP/OTHER RIGHT Radiology Routine Right shoulder pain, unspecified chronicity 1 Occurrences starting 04/10/2024 until 05/10/2025 [facility] Work Phone: Comment on above: 1 Occurrences starti ng 04/10/2024 until 05/10/2025 XR Shoulder - right 3 Views XR SHOULDER GENERAL 3V OR MORE AP/TRUE AP/OTHER RIGHT Radiology Routine Right shoulder pain, unspecified chronicity 04/11/2024 9:50 AM EDT [facility] Work Phone: XR Wrist - left PA a nd Lateral and Oblique XR WRIST GENERAL 3V PA/LAT/OBL LEFT Radiology Routine Carpal tunnel syndrome of left wrist Ordered: 08/22/2024 [facility] Work Phone: Comment on above: Ordered: 08/22/2024 [facility] [facility] Immunization Date Immunization Notes Care Provider Alexi galarza 07-31-2024 influenza virus vaccine, unspecified formulation Juan Lafleur PT Work Phone: [facility] 08-24-2023 influenza virus vaccine, unspecified formulation Giovanni Vinay V, DO Work Phone: [facility] 06-22-2022 influenza virus vaccine, unspecified formulation Xr Rej Work Phone: [facility] 08-14-2020 influenza, high-dose , quadrivalent vaccine (FLUZONE HIGH DOSE QUADRIVALENT) Giovanni Vinay V, DO Work Phone: [facility] 07-25-2018 influenza, high dose seasonal, preservative-free Giovanni Vinay V, DO Work Phone: [facility] Work Phone: 05-03-2018 hepatitis A vaccine, adult dosage Giovanni Vinay V, DO Work Phone: [facility] 08-12-2014 influenza virus vaccine, whole virus Giovannicarlota Mclean V, DO Work Phone: [facility] 09-08-2009 influenza virus vaccine, unspecified formulation Giovanni Vinay V, DO Work Phone: [facility] Work Phone: 09-25-2007 influenza virus vaccine, unspecified formulation Giovanni Vinay V, DO Work Phone: [facility] Work Phone: 09-21-2005 influenza virus vaccine, unspecified formulation Giovanni Vinay V, DO Work Phone: [facility] Work Phone: 09-25-1980 diphtheria and tetan us toxoids, adsorbed for pediatric use Giovanni Vinay V, DO Work Phone: [facility] Work Phone: 01-01-1968 trivalent poliovirus vaccine, live, oral Giovanni Vinay V, DO Work Phone: [facility] Work Phone: 08-23-1967 diphtheria and tetan us toxoids, adsorbed for pediatric use Giovanni Vinay V, DO Work Phone: [facility] Work Phone: 04-26-1966 diphtheria and tetan us toxoids, adsorbed for pediatric use Giovanni Vinay V, DO Work Phone: [facility] Work Phone: 07-30-1961 diphtheria and tetan us toxoids, adsorbed for pediatric use Giovanni Vinay V, DO Work Phone: [facility] Work Phone: 09-22-1959 diphtheria and tetan us toxoids, adsorbed for pediatric use Giovanni Vinay V, DO Work Phone: [facility] Work Phone: 09-22-1959 vaccinia (smallpox) vaccine, diluted Giovanni Vinay V, DO Work Phone: [facility] Work Phone: 02-24-1959 trivalent poliovirus vaccine, live, oral Giovanni Vinay V, DO Work Phone: [facility] Work Phone: 06-28-1956 trivalent poliovirus vaccine, live, oral Giovanni Vinay V, DO Work Phone: [facility] Work Phone: 10-10-1955 trivalent poliovirus vaccine, live, oral Giovanni Vinay V, DO Work Phone: [facility] Work Phone: 09-11-1955 trivalent poliovirus vaccine, live, oral Giovanni Vinay V, DO Work Phone: [facility] Work Phone: Payers Date Payer Category Payer Self-pay 2019 [facility] CATA SUPPLEMENT [id number] 2019 Medicare MEDICARE MEDICAR E A AND B [id number] 2019-Present [phone] [place] [address] Medicare [id number] 2019 Medicare [id number] 2019 Unknown ANTHEM ANTHEM ME DICARE SUPPLEMENT [id number] 2019-Present [phone] [id number] [place], [place] [address] Indemnity [id number] 2019 Unknown ANTHEM ANTHEM ME DICARE SUPPLEMENT [id number] 2019-Present [phone] [id number] [place] [address] Indemnity [id number] 2019 Unknown [id number] 2015 Medicare [id number] Unknown [id number] Social History Date Type Detail Facility Start: 07-09-2013 End: 10-10-2023 Tobacco smoking status NHIS Never smoked tobacco [facility] Start: 08-03-2021 End: 06-04-2025 Alcohol intake Current drinker of alcohol (finding) [facility] Start: 08-03-2021 End: 10-10-2023 Alcohol intake [facility] Work Phone: Start: 11-24-2019 History SDOH Alcohol Frequency 4 [facility] Start: 11-24-2019 History SDOH Alcohol Std Drinks 1 [facility] Start: 1950 Sex Assigned At Not on file [facility] Start: 11-19-2021 End: 12-19-2021 Exposure to SARS-CoV-2 (event) Yes [facility] Start: 02-22-2022 History SDOH Alcohol Comment few times a month [facility] Start: 02-12-2022 End: 03-17-2022 Exposure to SARS-CoV-2 (event) Not sure [facility] Start: 07-09-2013 End: 10-10-2023 Tobacco use and exposure Smokeless tobacco non-user [facility] Start: 11-24-2019 End: 10-10-2023 Alcohol Use Disorder Identification Test - Consumption [AUDIT-C] [facility] Work Phone: How often to you hav e a drink containing alcohol? 2-3 time sa week [facility] Work Phone: How many standard dr inks containing alcohol do you have on a typical day? 1 or 2 [facility] Work Phone: Start: 10-13-2012 Frequency of Binge Drinking Not on file [facility] Start: 09-27-2023 Gender identity Identifies as male gender (finding) [facility] Start: 09-27-2023 Sexual orientation Bisexual (finding ) [facility] NEGATED: Highlighted rowStart: 10-27-2019 End: 10-27-2019 Alcohol use Alcohol use [facility] Work Phone: NEGATED: Highlighted rowStart: 10-27-2019 End: 10-27-2019 Employment detail Employment detail [facility] Work Phone: NEGATED: Highlighted rowStart: 10-27-2019 End: 10-27-2019 How many days of moderate to strenuous exercise, like a brisk walk, did you do in the last 7 days? How many days of moderate to strenuous exercise, like a brisk walk, did you do in the last 7 days? [facility] Work Phone: NEGATED: Highlighted rowStart: 10-27-2019 End: 10-27-2019 Assertion Never smoker [facility] Work Phone: Medical Equipment Procedure Code Equipment Code Equipment Origin al Text Equipment Identifier Dates Graft Dbx Bone V oid Allograft Freeze Dried Putty 2.5ml - [id number] Start: 04-30-2020 Esteban Bn Smpx P To bra Fd - [id number] Start: 10-15-2014 Cement Simplex P Tobramycin Bone Full Dose Radiopaque Preblend Sterile - [id number] Start: 08-13-2018 Head Fem 52mm Hi p Resurf Bhr - [id number] Start: 10-15-2014 Cup Actb 58mm 52 mm Bhr Hbrd - [id number] Start: 10-15-2014 Cup Bhr 58mm 52m m Acetabular Hybrid Fixation Hip - [id number] Start: 08-13-2018 Head Bhr 52mm Fe moral Resurfacing - [id number] Start: 08-13-2018 Plate Lcp Short Bend Stainless Steel 118mm Bone Fusion 2.7/3.5mm Screw - [id number] Start: 04-30-2020 Screw Lcp 3.5mm Full Thread Stainless Steel 16mm Bone Stardrive Recess Self - [id number] Start: 04-30-2020 Screw Lcp 3.5mm 6mm Full Thread T15 Stainless Steel 18mm Bone Self Tap Low - [id number] Start: 04-30-2020 Screw Lcp 2.7mm T8 Stainless Steel 16mm Bone Self Tap Self Retaining - [id number] Start: 04-30-2020 Screw Lcp 2.7mm T8 Stainless Steel 22mm Bone Stardrive Self Tap Modular - [id number] Start: 04-30-2020 Screw Lcp 2.7mm T8 Stainless Steel 14mm Bone Self Tap Self Retaining - [id number] Start: 04-30-2020 Screw Lcp 3.5mm T15 Full Thread Cone Low Profile Stainless Steel 22mm Bone - [id number] Start: 04-30-2020 Cement Simplex P Bone Radiopaque Full Dose Sterile - [id number] Start: 03-16-2022 Component Triath rosy 6 Femoral Cruciate Retain Cemented Knee Left - [id number] Start: 03-16-2022 Insert Triathlon 6 9mm Tibial Bearing Condylar Stabilize Sterile Knee - [id number] Start: 03-16-2022 Component Triath rosy 38mm 11mm Patellar Asymmetric - [id number] Start: 03-16-2022 Baseplate Triath rosy 6 Tibial Primary Cement Knee - [id number] Start: 03-16-2022 Functional Status Date Assessment Result Facility 03-17-2022 Are you deaf, or do you have serious difficulty hearing No [facility] 03-17-2022 Are you blind, or do you have serious difficulty seeing, even when wearing glasses No [facility] 03-17-2022 Do you have serious difficulty walking or climbing stairs No [facility] 03-17-2022 Do you have difficulty dressing or bathin g No [facility] 03-17-2022 Because of a physica l, mental, or emotional condition, do you have difficulty doing errands alone such as visiting a physician's office or shopping No [facility] Mental Status Date Assessment Result Facility 03-17-2022 Because of a physica l, mental, or emotional condition, do you have serious difficulty concentrating, remembering, or making decisions No [facility] Clinical Notes 08-05-2021 to 07-06-2025 Juan Lafleur, [place] - 07/06/2025 2:59 PM Juan Puentes PT - 06/23/2025 9:54 AM Juan Puentes PT - 06/23/2025 9:30 AM Juan Puentes PT - 06/09/2025 11:33 AM EDTPatient Instructions Note Date & Type Note Facility 07-06-2025 Note HNO ID: [id number] Author: JUAN LAFLEUR PT Service: ? Author [...] the pt if he decides to goto [place] for 2 weeks. SUBJECTIVE: Pt reports that [...] 1455 Session Stop Time : 1527 Cherie Restrepo, TRIMMER MEAT Juan Lafleur, PT [facility] 07-06-2025 History of Presen t illness Narrative [...] the pt if he decides to goto [place] for 2 weeks. SUBJECTIVE: Pt reports that [...] La Rosa PT documented in this encounter [facility] 06-23-2025 History of Presen t illness Narrative Program_ID:[id number] Access Code: [email or web address] URL: [email or web address] Date: 06-23-2025 Prepared By: Juan Lafleur Program [...] Goals for Episode of Care: established 05/25/25 [facility] in home exercise program.- met Patient will [...] Patient to be seen for Therapeutic exercise (99296), Neuromuscular re-education (78759), Manual therapy (63694), Therapeutic activities (64617), Self-usp management (59624), Gait Training (29715), Patient/Family/Caregiver Education PLAN FOR NEXT VISIT: Loading [...] Time : 929 Session Stop Time : 1009 Juan Lafleur PT documented in this encounter [facility] 06-23-2025 Note HNO ID: [id number] Author: JUAN LAFLEUR PT Service: ? Author [...] Goals for Episode of Care: established 05/25/25 [place] in home exercise program.- met Patient will [...] Patient to be seen for Therapeutic exercise (25795), Neuromuscular re-education (98945), Manual therapy (16297), Therapeutic activities (01364), Self-usp management (70354), Gait Training (47952), Patient/Family/Caregiver Education PLAN FOR NEXT VISIT: Loading [...] Time (minutes): 40 Session Start Time : 30 Session Stop Time : 1010 Juan Lafleur PT [facility] 06-16-2025 Note HNO ID: [id number] Author: JUAN LAFLEUR PT Service: ? Author [...] 1015 Session Stop Time : 1045 Cherie Irahetajeanette, TRIMMER MEAT Juan Lafleur PT [facility] 06-09-2025 History of Presen t illness Narrative Program_ID:[id number] Access Code: [email or web address] URL: [email or web address] Date: 06-09-2025 Prepared By: Juan Lafleur Program [...] Juan Lafleur PT documented in this encounter [facility] 06-09-2025 Note HNO ID: [id number] Author: JUAN LAFLEUR PT Service: ? Author [...] Stop Time : 1140 Juan Lafleur PT [facility] 06-04-2025 Note HNO ID: [id number] Author: HELIO CORTEZ MD Service: ? Author [...] motion 3) Immobilization-okay to discontinue sling. 4) Vyxsbh-mefbyoy-cc lifting more than 5 pounds 5) Follow-up- Patient to follow up in 6 weeks Helio Cortez MD 06/04/2025 10:45 AM [facility] 06-04-2025 History of Presen t illness [...] motion 3) Immobilization-okay to discontinue sling. 4) Mwgmwr-yqelczi-lj lifting more than 5 pounds 5) Follow-up- Patient to follow up in 6 weeks Helio Cortez MD 06/04/2025 10:45 AM documented in this encounter [facility] 06-02-2025 History of Presen t illness Narrative Program_ID:[id number] Access Code: [email or web address] URL: [email or web address] Date: 06-02-2025 Prepared By: Juan Lafleur Program [...] Stop Time : 829 Juan Lafleur PT documented in this encounter [facility] 06-02-2025 Note HNO ID: [id number] Author: JUAN LAFLEUR PT Service: ? Author [...] Stop Time : 829 Juan Lafleur PT [facility] 05-25-2025 History of Presen t illness Narrative Program_ID:[id number] Access Code: [email or web address] URL: [email or web address] Date: 05-25-2025 Prepared By: Juan Lafleur Program [...] Goals for Episode of Care: established 05/25/25 [place] in home exercise program. Patient will decrease [...] Planned: 4 Planned Treatment Interventions: Therapeutic exercise (49589), Neuromuscular re-education (01888), Manual therapy (61875), Therapeutic activities (99824), Self-usp management (99761), Gait Training (06536), Patient/Family/Caregiver Education PLAN FOR NEXT VISIT: RCR [...] Demonstration TREATMENT: PT Treatment Interventions: Therapeutic Exercise, Self-Fpc Management Evaluation Therapeutic Exercise: 1: Discussed exam [...] was facilitated with verbal and visual cuing. Self-Fpc Management: 1: DIscussed proper use of sling [...] Juan Lafleur PT documented in this encounter [facility] 05-25-2025 Note HNO ID: [id number] Author: JUAN LAFLEUR PT Service: ? Author [...] Goals for Episode of Care: established 05/25/25 [place] in home exercise program. Patient will decrease [...] Planned: 4 Planned Treatment Interventions: Therapeutic exercise (01365), Neuromuscular re-education (19327), Manual therapy (95576), Therapeutic activities (81704), Self-usp management (27538), Gait Training (08653), Patient/Family/Caregiver Education PLAN FOR NEXT VISIT: RCR [...] Demonstration TREATMENT: PT Treatment Interventions: Therapeutic Exercise, Self-Fpc Management Evaluation Therapeutic Exercise: 1: Discussed exam [...] was facilitated with verbal and visual cuing. Self-Fpc Management: 1: DIscussed proper use of sling for the post-operative limb. Discussed wearing sling at all times unless directed otherwise by the surgeon. Explained that the sling may be removed to complete physica (more content not included)... [facility] 05-05-2025 Note HNO ID: [id number] Author: HELIO CORTEZ MD Service: ? Author [...] Cortez MD 05/05/2025 11:19 AM [facility] 05-05-2025 History of Presen t illness [...] 05/05/2025 11:19 AM documented in this encounter [facility] 04-20-2025 Note HNO ID: [id number] Author: SINGH FINCH APRN.CRNA Service: Anesthesiology Author Type: Nurse Rn Mds Coordinator Type: Anesthesia Procedure Notes Filed: 04/20/2025 10:40 Note Text: ANESTHESIOLOGY PROCEDURE NOTE Airway General Information Procedure Start Time/Medication Administration: 04/20/2025 10:24 AM Procedure End Time: 04/20/2025 10:24 AM Patient location during procedure: OR Timeout Performed Pre-procedure: timeout performed Consent Obtained: Yes Patient identity confirmed: arm band Staffing KNOTTER: Singh Finch APRN.KNOTTER Performed by: JESU Indications and Patient Condition [...] no Airway not difficult SIGNATURE: Singh Finch APRN.KNOTTER PATIENT NAME: Shimon Amato DATE: April 20, 2025 TIME: 10:39 AM CSN: [id number] [facility] 04-20-2025 Note HNO ID: [id number] Author: PRIETO DURANT MD Service: Anesthesiology Author [...] April 20, 2025 TIME: 9:03 AM CSN: [id number] [facility] 04-16-2025 Telephone encounter Note Just spoke to patient and advised him to arrive to our outpatient surgery center on SundayApril 20 by 7:30 am. He has address and suite number. I reminded him not to eat or drink after midnight Sunday night or for 8 hours prior to surgery. [facility] 04-16-2025 Miscellaneous Notes Just spoke to patient and advised him to arrive to our outpatient surgery center on SundayApril 20 by 7:30 am. He has address and suite number. I reminded him not to eat or drink after midnight Sunday night or for 8 hours prior to surgery. documented in this encounter [facility] 04-13-2025 History of Presen t [...] 5-14 Normal: PHQ-9 < 5 Data from [facility] Epic on prior therapies: PREVIOUS CONSERVATIVE TREATMENT: [...] plan. Suresh Soto MD Department of Orthopaedics [facility] [employer] Recording using [employer] software for draft documentation of the visit was discussed with the patient/authorized premium representative; all questions welcomed and answered. Patient/authorized premium representative agreed to proceed documented in this encounter [facility] 04-13-2025 Note HNO ID: [id number] Author: SURESH SOTO MD Service: ? Author [...] 5-14 Normal: PHQ-9 < 5 Data from [facility] Epic on prior therapies: PREVIOUS CONSERVATIVE TREATMENT: [...] positioning (more content not included)... [facility] 04-13-2025 Note HNO ID: [id number] Author: KAYY HANSON APRN.CNP Service: Anesthesiology Author Type: Nurse Practitioner Type: Progress Notes Filed: 04/13/2025 11:54 Note Text: PAT HANDP reviewed. No ASC or anesthesia concerns at this time. No pending optimizations. Will proceed with procedure as planned at ASC. [facility] 04-13-2025 History and physical note Images from the original note were not included. [facility] HISTORY AND PHYSICAL EXAMINATION SERVICE DATE: 04/13/2025 SERVICE TIME: 11:44 AM PRIMARY CARE PHYSICIAN: Giovanni Mclean, Assessment Patient has the following medical conditions [...] which included preparing to see the patient, clzv-ja-ufur patient care, completing clinical documentation, obtaining and/or [...] Admin: COVID-19 vaccine, age 12+ yr, season ([employer]) 06/22/2022 Imm Admin: COVID-19 original vaccine, full [...] 74 year old male who presents to [facility] for the above procedure. Patient c/o right shoulder pain for about 3 years, has had steriod injections 2-3 times. 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 GI: Negative for: abdominal pain, dysphagia, hepatitis, [...] or any previous visit (from the past 62974 hours). Instructions Given to Patient: Instructions located in the after visit summary. Patient given verbal and written preop instructions and voices comprehension and compliance. SIGNATURE: Hakeem Agudelo APRN.CNP PATIENT NAME: Shimon Amato DATE: April 13, 2025 TIME: 3:28 PM PAGER/CONTACT #: Health 04-13-2025 History and physical note Images from [...] which included preparing to see the patient, wcja-kr-bayn patient care, completing clinical documentation, obtaining and/or [...] COVID-19 vaccine, age 12+ yr, 2022- season ([employer]) 06/22/2022 Imm Admin: COVID-19 original vaccine, full [...] 74 year old male who presents to [facility] for the above procedure. Patient c/o right shoulder pain for about 3 years, has had steriod injections 2-3 times. 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 GI: Negative for: abdominal pain, dysphagia, hepatitis, [...] SURGICAL HISTORY OF Left 10/15/2014 [facility] PAST SURGICAL HISTORY OF Right 2000 wrist [...] or any previous visit (from the past 19703 hours). Instructions Given to Patient: Instructions located in the after visit summary. Patient given verbal and written preop instructions and voices comprehension and compliance. SIGNATURE: Hakeem Agudelo APRN.CNP PATIENT NAME: Shimon Amato DATE: April 13, 2025 TIME: 3:28 PM PAGER/CONTACT #: documented in this encounter [facility] 04-10-2025 Instructions Hakeem Agudelo APRN.CNP - 04/10/2025 3:27 PM EDT PATIENT PREOPERATIVE INSTRUCTIONS Your surgeon has scheduled for your procedure at this surgery center: [facility]: [phone], [address] [facility] [address] [place], [place] [id number] Please read below carefully for your personalized instructions. Surgery Date: 04/20/25 Your surgeon's office will provide you with your ARRIVAL TIME for surgery. - If you have not received an arrival time by the afternoon before your surgery date, please follow up with your surgeon's office. - If you are scheduled for Sunday surgery, please make sure you have your arrival time by Sunday. - Please be aware that emergency situations [...] surgery. - YOU MUST HAVE A RESPONSIBLE TITLE I DIRECTOR TAKE YOU HOME. A PAPER GRADER, CAB OR UBER TITLE I DIRECTOR CANNOT BE MADE A RESPONSIBLE TITLE I DIRECTOR. - If you are undergoing an outpatient [...] date of surgery. Visitation: Visitors to any [facility] facility: Any individual who is sick should not visit. Visitors to patients with COVID-19 must follow these guidelines, which include wearing a mask, eye protection, gown and gloves. [facility] [place] Visitation hours: 7 AM to 9 PM. Pre-Surgery Unit - Patients may have up to 2 visitors at a time. PACU recovery Unit - Patients may have up to 1-2 visitors at a time. [facility] [place] Pre-Surgery area - 1 visitor at a [...] Advance Directive, please fax a copy to [phone] or [place] GEOFF at [phone] or email to for it to be [...] Agudelo APRN.CNP 04/10/25 documented in this encounter [facility] 03-31-2025 Note HNO ID: [id number] Author: [place] RT(R) Service: ? Author [...] PATIENT PRESENTS WITH AN IMPLANTABLE OR ATTACHED THEOLOGY PROFESSOR: No RADIOLOGY DEPARTMENT: MR; Exam(s) Completed: Spine: Cervical spine. Lavender Administered: No PERIPHERAL IV DATA: Not applicable SIGNED BY: RT Alexa(R) March 31, 2025 12:20 PM [facility] 03-27-2025 History of Presen t illness Narrative Images from the original note were not included. SPINE SURGERY NEW PATIENT Date of visit: March 27, 2025 Patient Name: Mr.Brian Marco Antonio Amato Date of : 1950 Current Age: [age] year old Sex: male PCP: Giovanni Mclean DO REFERRING PROVIDER: Helio Cortez [address] [address] Subjective Chief Complaint: History of Present Illness: [...] 5-14 Normal: PHQ-9 < 5 Data from [facility] Epic on prior therapies: PREVIOUS CONSERVATIVE TREATMENT: [...] operative note independently gathered by the clinical patient support specialist and the remaining scribed note accurately describes my personal service to the patient. documented in this encounter [facility] 03-27-2025 Note HNO ID: [id number] Author: SURESH SOTO MD Service: ? Author Type: Physician Type: Progress Notes Filed: 03/27/2025 11:05 Note Text: SPINE SURGERY NEW PATIENT Date of visit: March 27, 2025 Patient Name: Mr.Brian Marco Antonio Amato Date of : 1950 Current Age: [age] year old Sex: male PCP: Giovanni Mclean DO REFERRING PROVIDER: Helio Cortez [address] [address] Subjective Chief Complaint: History of Present Illness: [...] 5-14 Normal: PHQ-9 < 5 Data from [facility] Epic on prior therapies: PREVIOUS CONSERVATIVE TREATMENT: [...] the (more content not included)... [facility] 03-25-2025 Telephone encounter Note Attempted to contact patient to schedule appointment with Dr Soto at request of Dr Cortez. Per velasquez Gilbert to double book on 03/27. Left message with office call back information and my extension. T [facility] 03-25-2025 Miscellaneous Notes Attempted to contact patient to schedule appointment with Dr Soto at request of Dr Cortez. Per velasquez Gilbert to double book on 03/27. Left message with office call back information and my extension. documented in this encounter [facility] 03-24-2025 Note HNO ID: [id number] Author: HELIO CORTEZ MD Service: ? Author [...] OR Time Needed: 1.5 hours Location: [] [facility] [] [facility] Equipment Request: Arthrex, beachchair [] Mini-C-arm [] Large C-arm Anesthesia: General with block Post op appointment: 2 weeks Inpatient stay: No Pre Testing Needed: Yes Physical Therapy: No Time Frame for scheduling: elective [facility] 03-24-2025 History of Presen t illness Narrative Dana Operative Scheduling Details Diagnosis: (M54.12) Radiculopathy, cervical (primary encounter diagnosis) (S46.011D) Traumatic complete tear of right rotator cuff, subsequent encounter (S46.211A) Rupture of right proximal biceps tendon, initial encounter Procedure: Right shoulder arthroscopic rotator cuff repair, possible biceps tenodesis OR Time Needed: 1.5 hours Location: [] [facility] [] [facility] Equipment Request: Arthrex, beachchair [] Mini-C-arm [] Large C-arm Anesthesia: General with block Post op appointment: 2 weeks Inpatient stay: No Pre Testing Needed: Yes Physical Therapy: No Time Frame for scheduling: elective Images from the original note were not included. Helio Cortez MD Orthopedic Sports Medicine Surgery [address] [facility] 410, [facility] [address] [address] [place] [address] [address] , [facility] [address], [place] [address] NAME: Shimon Amato : 1950 DATE: 03/24/2025 [...] 03/24/2025 3:55 PM documented in this encounter [facility] 03-24-2025 Note HNO ID: [id number] Author: HELIO CORTEZ MD Service: ? Author Type: Physician Type: Progress Notes Filed: 03/24/2025 15:56 Note Text: Helio Cortez MD Orthopedic Sports Medicine Surgery [address] [facility], [place] [address] [address] [place] [address] [address], [facility] [address], [place] [address] NAME: Shimon Amato : 1950 DATE: 03/24/2025 [...] tendon (more content not included)... [facility] 03-12-2025 Telephone encounter Note I got a message this morning from Dr. Cortez that Chris Mclean' neighbor wants to see Dr. Cortez again for his shoulder. I just called, but had to leave a message as no one answered. I left my direct number and the appt line number to call back to schedule. [facility] 03-12-2025 Miscellaneous Notes I got a message this morning from Dr. Cortez that Chris Mclean' neighbor wants to see Dr. Cortez again for his shoulder. I just called, but had to leave a message as no one answered. I left my direct number and the appt line number to call back to schedule. documented in this encounter [facility] 2024 Note HNO ID: [id number] Author: HELIO CORTEZ MD Service: ? Author Type: Physician Type: Progress Notes Filed: 2024 15:27 Note Text: Helio Cortez MD Orthopedic Sports Medicine Surgery [address] [facility] 410[facility] [address] [facility]6 [place], [place] [address] [place] [address] [facility] [address] [id number] NAME: Shimon Amato : 1950 DATE: 2024 [...] Cortez MD 2024 3:27 PM [facility] 2024 History of Presen t illness Narrative Images from the original note were not included. Helio Cortez MD Orthopedic Sports Medicine Surgery [address] [facility] [address], [facility] [address] [address] [place] [address] [address] [facility] , [facility] [address], [place] [address] NAME: Shimon Amato : 1950 DATE: 2024 [...] 2024 3:27 PM documented in this encounter [facility] 12-17-2024 History of Presen t [...] PATIENT PRESENTS WITH AN IMPLANTABLE OR ATTACHED THEOLOGY PROFESSOR: No RADIOLOGY DEPARTMENT: MR; Exam(s) Completed: Upper MSK: Shoulder, right PERIPHERAL IV DATA: Not applicable SIGNED BY: RT Diogenes(Amada) December 17, 2024 9:28 AM documented in this encounter [facility] 12-17-2024 Note HNO ID: [id number] Author: DEBORAH MCFARLANE RT (R) Service: ? Author Type: Technologist Type: Progress [...] PATIENT PRESENTS WITH AN IMPLANTABLE OR ATTACHED THEOLOGY PROFESSOR: No RADIOLOGY DEPARTMENT: MR; Exam(s) Completed: Upper MSK: Shoulder, right PERIPHERAL IV DATA: Not applicable SIGNED BY: RT Diogenes(Amada) December 17, 2024 9:28 AM [facility] 12-16-2024 Note HNO ID: [id number] Author: HELIO CORTEZ MD Service: ? Author Type: Physician Type: Progress Notes Filed: 12/16/2024 14:02 Note Text: Helio Cortez MD Orthopedic Sports Medicine Surgery [address] [place] [address], [facility] [address] [place] [address] [address], [address] [address] NAME: Shimon Amato : 1950 DATE: 12/16/2024 [...] Cortez MD 12/16/2024 2:01 PM [facility] 12-16-2024 History of Presen t illness Narrative Images from the original note were not included. Helio Cortez MD Orthopedic Sports Medicine Surgery [address] [facility] [address] [address] [place] [id number] [place] [address] [facility] [address], [place] [address] NAME: Shimon Amato : 1950 DATE: 12/16/2024 [...] 12/16/2024 2:01 PM documented in this encounter [facility] 10-23-2024 Note HNO ID: [id number] Author: HELIO CORTEZ MD Service: ? Author Type: Physician Type: Progress Notes Filed: 10/23/2024 12:45 Note Text: Helio Cortez MD Orthopedic Sports Medicine Surgery [address] [facility] 410, [facility] [address] [address] [place] [address] [address] [facility] , [facility] [address], [place] [address] NAME: Shimon Amato : 1950 DATE: 10/23/2024 [...] discussed. Helio Cortez MD 10/23/2024 [facility] 10-23-2024 History of Presen t illness Narrative Images from the original note were not included. Helio Cortez MD Orthopedic Sports Medicine Surgery [address] [facility] [address], [facility] [address] [address] [place] [address] [address] [facility] , [facility] [address], [place] [address] NAME: Shimon Amato : 1950 DATE: 10/23/2024 [...] Cortez MD 10/23/2024 documented in this encounter [facility] 09-26-2024 Note HNO ID: [id number] Author: KAT PALOMO PA-C Service: ? Author Type: Physician Ferry Hand Type: Progress Notes Filed: 09/26/2024 11:16 Note [...] start applying lotion with vitamin E, Vaseline, [place] butter, etc to help with scar healing. [...] phrases that may be inappropriate. [facility] 09-26-2024 History of Presen t illness [...] start applying lotion with vitamin E, Vaseline, [place] butter, etc to help with scar healing. [...] may be inappropriate. documented in this encounter [facility] 08-22-2024 Note HNO ID: [id number] Author: STEPHAN YUN MD Service: ? 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 documented in this encounter [facility] 08-22-2024 Note HNO ID: [id number] Author: ZEN BURGESS Tech Service: ? Author Type: Briquette Machine Operator Helper Type: Progress Notes Filed: 08/22/2024 12:39 Note [...] excessive bleeding, clots, bleeding disorders. [facility] 08-18-2024 Note HNO ID: [id number] Author: BRIANA GARNER MD Service: ? Author [...] Visit completed when applicable. ROGERIO Goldman MD [facility] 08-18-2024 History of Presen t illness Narrative [...] Briana Garner MD documented in this encounter [facility] 05-21-2024 Telephone encounter Note Please contact patient and schedule an appointment with Dr. Tirnh or Tianna Gutierres PA-C for Left Carpal Tunnel Syndrome. Referred by Dr. Mclean. Thank you! [facility] 05-21-2024 Miscellaneous Notes Please contact patient and schedule an appointment with Dr. Trinh or Tianna Gutierres PA-C for Left Carpal Tunnel Syndrome. Referred by Dr. Mclean. Thank you! documented in this encounter [facility] 04-11-2024 History of Presen t illness Narrative Associated Order(s): Large Joint Arthro/Inj: R subacromial bursa Post-Procedure Diagnose(s): Rotator cuff disorder, right Images from the original note were not included. SERVICE DATE: April 11, 2024 PCP: Giovanni Mclean DO Subjective Patient ID: Marco Antonio is [...] night that keeps him awake. He takes ypxu-rqv-fmezfxf NSAIDs with minimal improvement. Review of Systems [...] subacromial bursa Informed Consent Consent Obtained: Verbal [place] Protocol A moment to CARE was completed. [...] Intervention/Comfort measure: Medication documented in this encounter [facility] 04-11-2024 History of Presen t [...] PATIENT PRESENTS WITH AN IMPLANTABLE OR ATTACHED THEOLOGY PROFESSOR: No RADIOLOGY DEPARTMENT: General X-ray: Exam(s) Completed: Upper Extremity X-Ray(s): Shoulder, AP / TRUE AP / AXILLARY right PERIPHERAL IV DATA: Not applicable SIGNED BY: RT Iban(R) April 11, 2024 9:41 AM documented in this encounter [facility] 10-10-2023 History of Presen t [...] ago. Recommend rechecking in 1 year Giovanni Mclean DO documented in this encounter [facility] 06-02-2022 History of Presen t [...] of Care: created on 04/05/22 through 05/18/22 [facility] in home exercise program./ achieved Patient will [...] Deborah Lima PT documented in this encounter [facility] 05-29-2022 History of Presen t [...] He reports doing some steps at the [employer] and that created some stiffness. Pain: [...] PTA/Deborah Lima PT documented in this encounter [facility] 05-25-2022 History of Presen t [...] ANNE-MARIE Chavez PT documented in this encounter [facility] 05-22-2022 History of Presen t [...] Total Treatment Time Minutes (timed/untimed): 45 ANNE-MARIE Chavez PT documented in this encounter [facility] 05-17-2022 History of Presen t illness Narrative Episode Visit Count: 12 Therapist That Will Oversee The Plan Of Care: Deborha Lima PT Start of Care Date: 04/05/22 [...] PTA/Deborah Lima PT documented in this encounter [facility] 05-11-2022 History of Presen t [...] Deborah Lima PT documented in this encounter [facility] 05-08-2022 History of Presen t [...] PTA/Deborah Lima PT documented in this encounter [facility] 05-04-2022 History of Presen t [...] of Care: created on 04/05/22 through 05/18/22 [facility] in home exercise program./ achieved Patient will [...] Patient to be seen for Therapeutic exercise (27515);Neuromuscular re-education (34165);Manual therapy (78575);Self-usp management (71457);Patient/Family/Caregiver Education;Gait Training (79847) PLAN FOR NEXT VISIT: Will use therapist [...] Deborah Lima PT documented in this encounter [facility] 05-01-2022 History of Presen t [...] PTA/Deborah Lima PT documented in this encounter [facility] 04-26-2022 History of Presen t [...] Deborah Lima PT documented in this encounter [facility] 04-17-2022 History of Presen t [...] Deborah Lima PT documented in this encounter [facility] 04-13-2022 History of Presen t [...] Deborah Lima PT documented in this encounter [facility] 04-07-2022 History of Presen t [...] 11mo) FUSION WRIST WITH AUTOGRAFT (Right) Sam House MD; Joel Lakhani MD (Fel); Stephan Mendez MD - Posted 08/13/2018 (3yr) ARTHROPLASTY HIP (Right) Parminder Crouch MD; Solomon Dietrich - Posted 10/15/2014 (7yr) ARTHROPLASTY HIP [...] oversee plan of care Deborah Lima PT Deborah Lima PT Prognosis Excellent - Frequency 2x/week - Duration 4 weeks - Total number of visits 8 - Planned treatment interventions Therapeutic exercise (01550);Neuromuscular re-education (02722);Manual therapy (69299);Self-usp management (61748);Gait Training (96351);Patient/Family/Caregiver Education - Plan for next visit trial [...] There is no evidence of loosening. Provider: Castilol Allen PA-C Completed by: Castillo Allen PA-C documented in this encounter [facility] 04-07-2022 Instructions Timothy Graham RN [...] and/ or clarification. documented in this encounter [facility] 04-07-2022 History of Presen t [...] IV DATA: Not applicable SIGNED BY: RT ERICA(R) documented in this encounter [facility] 04-07-2022 History of Presen t [...] Deborah Lima PT documented in this encounter [facility] 04-06-2022 History of Presen t [...] of Care: created on 04/05/22 through 05/18/22 [facility] in home exercise program. 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 Hobbies / Interests: [...] Deborah Lima PT documented in this encounter [facility] 04-05-2022 History of Past i llness Narrative Problem Noted Date Resolved Date Status post left knee replacement 04/05/2022 06/02/2022 documented as of this encounter (statuses as of 06/02/2022) [facility] History of Past illness Narrative* Problem Noted Date Diagnosed Date Resolved Date Status post left knee replacement 04/05/2022 06/02/2022 documented as of this encounter (statuses as of 09/15/2023) [facility] History of Past illness Narrative* Problem Noted Date Diagnosed Date Resolved Date Status post left knee replacement 04/05/2022 06/02/2022 documented as of this encounter (statuses as of 09/26/2023) [facility] History of Past illness Narrative* Problem Noted Date Diagnosed Date Resolved Date Status post left knee replacement 04/05/2022 06/02/2022 documented as of this encounter (statuses as of 10/11/2023) [facility] Miscellaneous Notes* Telephone Encounter - Avis Milton, PT - 04/03/2022 4:57 PM EDT D/c home PT 04/03 Goals met Starts OP PT 04/05 documented in this encounter[facility] Miscellaneous Notes* PT DISCHARGE - Avis Milton PT - 04/03/2022 9:01 AM EDT SITUATION: [...] summary for intervention/education details. documented in this encounter[facility] Miscellaneous Notes* PT ROUTINE/REASSESSMENT/RECERT/CASE MGMT [...] summary for intervention/education details. documented in this encounter[facility] Miscellaneous Notes* PT ROUTINE/REASSESSMENT/RECERT/CASE [facility] Jevon Stark PTA - 03/28/2022 9:01 AM EDT [...] summary for intervention/education details. documented in this encounterUniversity [facility] Miscellaneous Notes* PT ROUTINE/REASSESSMENT/RECERT/CASE [facility] Jevon Stark PTA - 03/23/2022 8:58 AM EDT SITUATION: spouse [...] summary for intervention/education details. documented in this encounterUniversity [facility] Miscellaneous Notes* PT ROUTINE/REASSESSMENT/RECERT/CASE JACKY Stark PTA - 03/22/2022 12:35 PM EDT SITUATION: spouse [...] summary for intervention/education details. documented in this encounterUniversity [facility] Miscellaneous Notes* PT ROUTINE/REASSESSMENT/RECERT/CASE MGMT - Avis Milton, PT - 03/20/2022 3:01 [...] summary for intervention/education details. documented in this encounterUniversity [facility]als [facility] Miscellaneous Notes* PT SOC/OMARI/FOLLOW UP/OTHER - William Cason PT - 03/18/2022 12:01 PM EDT SITUATION: [...] Surgical Precautions: WBAT ASSESSMENT: Patient evaluated by [facility] physical therapy. Reviewed and [...] summary for intervention/education details. documented in this encounterUniversity [facility]als [facility]22 Miscellaneous Notes* Telephone Encounter - Jailene Dorantes - 03/17/2022 3:06 PM EDT 03/17/2022 @ 3:06 PM Patient contacted in regards to SOC. Patient/caregiver agreeable to therapist on 03/18/2022. Jailene/Minilab Operator documented in this encounterUniversity Hospitals [facility]05-[facility]-2022 NoteHNO ID: [id number] Author: Stephan Mendez MD Service: Orthopaedic Surgery [...] well controlled, denies n/v/cp/sob VITALS: 03/16/22 1558 03/16/22201603/17/22 0036 03/17/22 0425 BP: 132/82 151/89 125/69 [...] GILLIAN Mendez MD Orthopaedic Surgery PGY-4 Pager: [phone] [id number] NoteHNO ID: [id number] Author: Xavier Keating MD Service: Anesthesiology Author [...] March 16, 2022 TIME: 10:38 AM CSN: [id number] NoteHNO ID: [id number] Author: NEAL Forrester Service: Anesthesiology Author Type: Graphic Art Technician Type: Anesthesia Procedure Notes Filed: 03/16/2022 8:10 [...] March 16, 2022 TIME: 8:09 AM CSN: [id number] NoteHNO ID: [id number] Author: TAVARES Huerta Service: Radiology Author Type: Briquette Machine Operator Helper Type: Progress Notes Filed: 02/24/2022 9:06 AM [...] TAVARES Huerta February 24, 2022 8:59 AM [id number] [id number] History of Present illness Narrative* TAVARES Huerta [...] 2022 8:59 AM clh6 documented in this encounterUniversity Hospitals [facility]04[facility] History and physical note * [...] fevers. Neuro: No history of TIA's, stroke, ADMINISTRATIVE MANAGER tumor, impaired sensorium, hemiplegia, paraplegia or [...] 2022 TIME: 10:43 AM documented in this encounterUniversity Hospitals [facility]04-13-[facility]22 Instructions* Patient Instructions* Desirae Ibrahim PA-C - 02/22/2022 10:32 AM EDT PATIENT PREOPERATIVE INSTRUCTIONS Luis Holliday MD has scheduled you for your procedure at this surgery center: [facility]: [phone] --[address] [place] [address]. On your scheduled day of surgery, please [...] Procedures: - YOU MUST HAVE A RESPONSIBLE TITLE I DIRECTOR TAKE YOU HOME. A PAPER GRADER OR CRM MARKETING SPECIALIST CANNOT BE MADE A RESPONSIBLE TITLE I DIRECTOR. - We recommend that a responsible person [...] Advance Directive, please fax a copy to [phone] or email to for it to be [...] day. Desirae Ibrahim PA-C documented in this encounterUniversity Hospitals [facility]04-[facility]22 Nurse Note* Ivelisse Orozco - 02/22/2022 10:11 AM EDT Advance Directives discussed with patient: AD in chart and current. . Ivelisse Orozco February 22, 2022 10:12 AM documented in this encounterUniversity Hospitals [facility]09-24-2021 Miscellaneous Notes* Telephone Encounter - Charmaine Kuhn RN - 08/05/2021 10:50 AM EDT Scheduling center called office to report that order for echo was cancelled. Patient scheduled for echo on 08/08 at [facility]. Please file new order so appt does not get cancelled. documented in this encounterFine ClinicEvaluation note* Diagnosis Primary hypertension- Primary Unspecified essential hypertension SUGGS (dyspnea on exertion) Other dyspnea and respiratory abnormality [facility] Diagnosis Pre-operative examination- Primary Preoperative examination, unspecified Osteoarthritis of left knee, unspecified osteoarthritis type Hypertension, essential Unspecified essential hypertension Benign non-nodular prostatic hyperplasia with lower urinary tract symptoms Urinary frequency Snores Other dyspnea and respiratory abnormality Primary osteoarthritis of left knee Primary localized osteoarthrosis, lower leg [facility] Diagnosis Pre-op testing- Primary Preoperative examination, unspecified Primary osteoarthritis of left knee Primary localized osteoarthrosis, lower leg [facility] Diagnosis Primary osteoarthritis of left knee- Primary Primary localized osteoarthrosis, lower leg Primary osteoarthritis of left knee Primary localized osteoarthrosis, lower leg [facility] Diagnosis Primary osteoarthritis of left knee Primary localized osteoarthrosis, lower leg Arthritis of knee Unspecified arthropathy, lower leg Preop testing Preoperative examination, unspecified Primary osteoarthritis of left knee Primary localized osteoarthrosis, lower leg [facility] Diagnosis Status post left knee replacement- Primary [facility] Diagnosis Status post left knee replacement [facility] Diagnosis Status post left knee replacement- Primary [facility] Diagnosis Status post left knee replacement- Primary Status post unilateral knee replacement, left [facility] Diagnosis Status post left knee replacement- Primary [facility] Diagnosis Status post left knee replacement- Primary [facility] Diagnosis Status post left knee replacement- Primary [facility] Diagnosis Status post left knee replacement- Primary [facility] Diagnosis Status post left knee replacement- Primary [facility] encounter [facility] Hospital note* Diagnosis Status post left knee replacement- Primary documented in this encounter [facility] note* Diagnosis Status post left knee replacement- Primary documented in this encounter [facility] note* Diagnosis Status post left knee replacement- Primary documented in this encounter [facility] note* Diagnosis Primary osteoarthritis of left knee Primary localized osteoarthrosis, lower leg Arthritis of knee Unspecified arthropathy, lower leg documented in this encounter [facility] note* Diagnosis Hypertension, essential- Primary Unspecified essential hypertension Screening for prostate cancer Special screening for malignant neoplasm of prostate documented in this encounter [facility] note* Diagnosis Hypertension, essential- Primary Unspecified essential hypertension Mixed hyperlipidemia Benign prostatic hyperplasia without lower urinary tract symptoms documented in this encounter [facility] note* Diagnosis Right shoulder pain, unspecified chronicity- Primary documented in this encounter [facility] note* Diagnosis Rotator cuff disorder, right- Primary documented in this encounter [facility] note* Diagnosis Right shoulder pain, unspecified chronicity documented in this encounter [facility] note* Diagnosis Pre-operative examination- Primary Preoperative examination, unspecified Post-traumatic osteoarthritis, right wrist MYLENE (obstructive sleep apnea) Obstructive sleep apnea (adult) (pediatric) Status post bilateral hip replacements Hip joint replacement by other means Benign non-nodular prostatic hyperplasia with lower urinary tract symptoms Paresthesias in left hand- Primary Disturbance of skin sensation documented in this encounter [facility] note* Diagnosis Pre-operative examination- Primary Preoperative examination, unspecified Post-traumatic osteoarthritis, right wrist MYLENE (obstructive sleep apnea) Obstructive sleep apnea (adult) (pediatric) Status post bilateral hip replacements Hip joint replacement by other means Benign non-nodular prostatic hyperplasia with lower urinary tract symptoms Paresthesias in left hand Disturbance of skin sensation [facility] Diagnosis Pre-operative examination- Primary Preoperative examination, unspecified Post-traumatic osteoarthritis, right wrist MYLENE (obstructive sleep apnea) Obstructive sleep apnea (adult) (pediatric) Status post bilateral hip replacements Hip joint replacement by other means Benign non-nodular prostatic hyperplasia with lower urinary tract symptoms Carpal tunnel syndrome of left wrist- Primary Carpal tunnel syndrome Left carpal tunnel syndrome Carpal tunnel syndrome [facility] Diagnosis Pre-operative examination- Primary Preoperative examination, unspecified Post-traumatic osteoarthritis, right wrist MYLENE (obstructive sleep apnea) Obstructive sleep apnea (adult) (pediatric) Status post bilateral hip replacements Hip joint replacement by other means Benign non-nodular prostatic hyperplasia with lower urinary tract symptoms Left carpal tunnel syndrome- Primary Carpal tunnel syndrome Left carpal tunnel syndrome Carpal tunnel syndrome [facility] Diagnosis Pre-operative examination- Primary Preoperative examination, unspecified Post-traumatic osteoarthritis, right wrist MYLENE (obstructive sleep apnea) Obstructive sleep apnea (adult) (pediatric) Status post bilateral hip replacements Hip joint replacement by other means Benign non-nodular prostatic hyperplasia with lower urinary tract symptoms History of carpal tunnel surgery of left wrist- Primary Radiculopathy, cervical Brachial neuritis or radiculitis nos [facility] Diagnosis Pre-operative examination- Primary Preoperative examination, unspecified Post-traumatic osteoarthritis, right wrist MYLENE (obstructive sleep apnea) Obstructive sleep apnea (adult) (pediatric) Status post bilateral hip replacements Hip joint replacement by other means Benign non-nodular prostatic hyperplasia with lower urinary tract symptoms Cough productive of purulent sputum- Primary Cough [facility] Diagnosis Pre-operative examination- Primary Preoperative examination, unspecified Post-traumatic osteoarthritis, right wrist MYLENE (obstructive sleep apnea) Obstructive sleep apnea (adult) (pediatric) Status post bilateral hip replacements Hip joint replacement by other means Benign non-nodular prostatic hyperplasia with lower urinary tract symptoms Rupture of right proximal biceps tendon, initial encounter- Primary Nontraumatic tear of right rotator cuff, unspecified tear extent [facility] Diagnosis Pre-operative examination- Primary Preoperative examination, unspecified Post-traumatic osteoarthritis, right wrist MYLENE (obstructive sleep apnea) Obstructive sleep apnea (adult) (pediatric) Status post bilateral hip replacements Hip joint replacement by other means Benign non-nodular prostatic hyperplasia with lower urinary tract symptoms Nontraumatic tear of right rotator cuff, unspecified tear extent- Primary Rupture of right proximal biceps tendon, initial encounter [facility] Diagnosis Pre-operative examination- Primary Preoperative examination, unspecified Post-traumatic osteoarthritis, right wrist MYLENE (obstructive sleep apnea) Obstructive sleep apnea (adult) (pediatric) Status post bilateral hip replacements Hip joint replacement by other means Benign non-nodular prostatic hyperplasia with lower urinary tract symptoms Nontraumatic tear of right rotator cuff, unspecified tear extent Rupture of right proximal biceps tendon, initial encounter [facility] Diagnosis Pre-operative examination- Primary Preoperative examination, unspecified Post-traumatic osteoarthritis, right wrist MYLENE (obstructive sleep apnea) Obstructive sleep apnea (adult) (pediatric) Status post bilateral hip replacements Hip joint replacement by other means Benign non-nodular prostatic hyperplasia with lower urinary tract symptoms Nontraumatic tear of right rotator cuff, unspecified tear extent- Primary Rupture of right proximal biceps tendon, initial encounter documented [facility]* Diagnosis Pre-operative examination- Primary Preoperative examination, [...] initial encounter [facility] Diagnosis Pre-operative examination- Primary Preoperative examination, [...] tendon, initial encounter [facility]* Diagnosis Pre-operative examination- Primary Preoperative examination, [...] Note - Hakeem Agudelo APRN.CNP - 04/13/2025 11:44 AM EDT Associated Problem(s): [...] in visit today. [facility] Diagnosis Pre-operative examination- Primary [...] whether traumatic- Primary [facility] Diagnosis Pre-operative examination- Primary Preoperative examination, [...] unspecified tear extent [facility] Diagnosis Pre-operative examination- Primary Preoperative examination, [...] tear extent- Primary [facility] Diagnosis Pre-operative examination- Primary Preoperative examination, [...] whether traumatic- Primary documented in this encounter [facility] note* Diagnosis Pre-operative examination- Primary Preoperative [...] tear extent- Primary documented in this encounter [facility] Plan of care note* Visit [...] clean dressing and contact provider and PT mental health case manager. Problem:PT Orthopedic Condition Goal:Manage Orthopedic [...] and functional activity. [facility] [...] and functional activity. documented in this encounter [facility] home Plan of care note* Visit Details Visit Type -TRIMMER MEAT ROUTINE Discipline -Physical Therapy Problems Problem Description [...] clean dressing and contact provider and PT mental health case manager. Problem:PT Orthopedic Condition Goal:Manage Orthopedic [...] home exercise program. [facility] Visit Details Visit Type -TRIMMER MEAT ROUTINE Discipline -Physical Therapy Problems Problem Description [...] home exercise program. documented in this encounter [facility] home Plan of care note* Visit Details Visit Type -TRIMMER MEAT ROUTINE Discipline -Physical Therapy Problems Problem Description [...] home exercise program. [facility] Visit Details Visit Type -TRIMMER MEAT ROUTINE Discipline -Physical Therapy Problems Problem Description [...] home exercise program. [facility] [...] x 5 in -10 * seated knee [id number] with verbal cues for technique . [...] include: verbal cues. documented in this encounter [facility] for referral (narrative)* Outpatient Procedure (Routine) - Pending Review Specialty Diagnoses / Procedures Referred By Carly csatro Referred To Contact [facility] Diagnoses Pre-operative examination MYLENE (obstructive sleep apnea) Hypertension, essential Osteoarthritis of left knee, unspecified osteoarthritis type Benign non-nodular prostatic hyperplasia with lower urinary tract symptoms Urinary frequency Procedures ECG COMPLETE ECG ROUTINE ECG W/LEAST 12 LDS W/I&R Desirae Ibrahim PA-C [address] [place], [place] [id number] [facility] [place] [address] [place] [id number] Referral ID Status Reason Start Date Expiration Date Visits Requested Visits Authorized [id number] Pending Review Auto-Generat ed Referral 02/22/2022 02/22/2023 1 1 [facility] for referral (narrative)* Diagnostic Procedure Only (Routine) - Closed Specialty Diagnoses / Procedures Referred By Contac t Referred To Contact XR IMAGING Diagnoses Primary osteoarthritis of left knee Arthritis of knee Procedures XR KNEE POST OP 3V AP/LAT/MERCHANT LEFT X-RAY KNEE 3+ VW Castillo Allen PA-C [address] [place] [address] X[facility] [place] [address] Referral ID Status Reason Start Date Expiration Date V isits Requested Visits Authorized [id number] Closed Auto-Generate d Referral 10/07/2021 11/06/2022 1 1 [facility] for referral (narrative)* Diagnostic Procedure Only (Routine) - Pending Review Specialty Diagnoses / Procedures Referred By Contac t Referred To Contact XR IMAGING Diagnoses Right shoulder pain, unspecified chronicity Procedures XR SHOULDER GENERAL 3V OR MORE AP/TRUE AP/OTHER RIGHT RADEX SHOULDER COMPLETE MINIMUM 2 VIEWS Giovanni Mclean V, DO [address] [place] [address] [place] [id number] Referral ID Status Reason Start Date Expiration Date Visits Requested Visits Authorized [id number] Pending Review Auto-Generat ed Referral 04/10/2024 05/10/2025 1 1 [facility] for referral (narrative)* Outpatient Procedure (Routine) - New Request Specialty Diagnoses / Procedures Referred By Contac t Referred To Contact [facility] Diagnoses Paresthesias in left hand Procedures EMG(NEURO/NI) NERVE CONDUCTION STUDIES 9-10 STUDIES Giovanni Mclean V, DO [address] [place] [address] [facility] [place] [address] [place] [address] Referral ID Status Reason Start Date Expiration Date Visits Requested Visits Authorized [id number] New Request Auto-Generat ed Referral 07/22/2024 07/22/2025 1 1 [facility] for referral (narrative)* Diagnostic Procedure Only (Routine) - New Request Specialty Diagnoses / Procedures Referred By Contac t Referred To Contact XR IMAGING Diagnoses Carpal tunnel syndrome of left wrist Procedures XR WRIST GENERAL 3V PA/LAT/OBL LEFT RADEX WRIST COMPLETE MINIMUM 3 VIEWS Stephan Yun MD [address] [address] Xr Imaging [facility] Referral ID Status Reason Start Date Expiration Date Visits Requested Visits Authorized [id number] New Request Auto-Generat ed Referral 09/21/2025 1 1 [facility] for visit Narrative* Diagnostic Procedure Only (Routine) - Closed Specialty Diagnoses / Procedures Referred By Contac t Referred To Contact XR IMAGING Diagnoses Primary osteoarthritis of left knee Arthritis of knee Procedures XR KNEE POST OP 3V AP/LAT/MERCHANT LEFT X-RAY KNEE 3+ VW Castillo Allen, JUANITO [address] [place] [address] Xr Imaging [facility] Referral ID Status Reason Start Date Expiration Date V isits Requested Visits Authorized [id number] Closed Auto-Generate d Referral 10/07/2021 11/06/2022 1 1 [facility] for visit Narrative* Diagnostic Procedure Only (Routine) - Closed Specialty Diagnoses / Procedures Referred By Contac t Referred To Contact XR IMAGING Diagnoses Right shoulder pain, unspecified chronicity Procedures XR SHOULDER GENERAL 3V OR MORE AP/TRUE AP/OTHER RIGHT RADEX SHOULDER COMPLETE MINIMUM 2 VIEWS Giovanni Mclean V, DO [address] [place] [address] Xr Imaging [facility] Referral ID Status Reason Start Date Expiration Date V isits Requested Visits Authorized [id number] Closed Auto-Generate d Referral 04/10/2024 05/10/2025 1 1 [facility] for visit Narrative* Outpatient Procedure (Routine) - Closed Specialty Diagnoses / Procedures Referred By Contac t Referred To Contact [facility] Diagnoses Paresthesias in left hand Procedures EMG(NEURO/NI) NERVE CONDUCTION STUDIES 9-10 STUDIES Giovanni Mclean V, DO [address] [place] [address] [facility] [place] [address] [place] [address] Referral ID Status Reason Start Date Expiration Date V isits Requested Visits Authorized [id number] Closed Auto-Generate d Referral 07/22/2024 07/22/2025 1 1 [facility] Summary Purpose Family History No Family History Records FoundThere may be information available, but it has not been provided by the sender.No Family History Records FoundNo Family History Records FoundNo Family History Records FoundNo Family History Records FoundNo Family History Records Found Advance Directives No Advanced Directives Records FoundDocuments on File Type Date Recorded 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 Advance Directive(s) 08/13/2018 9:33 AM Date Activated Date Inactivated Comments 03/18/2022 10:37 PM Documents on File Type Date Recorded 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 Advance Directive(s) 12/19/2021 8:26 AM Advance Directive(s) 12/09/2021 2:01 PM Advance Directive(s) 04/30/2020 10:34 AM Advance Directive(s) 04/19/2020 2:26 PM Advance Directive(s) 08/13/2018 9:33 AM Documents on File Type Date Recorded 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 Advance Directive(s) 02/22/2022 10:59 AM Advance Directive(s) 02/17/2022 5:19 PM Advance Directive(s) 12/19/2021 8:26 AM Advance Directive(s) 12/09/2021 2:01 PM Advance Directive(s) 04/30/2020 10:34 AM Advance Directive(s) 04/19/2020 2:26 PM Advance Directive(s) 08/13/2018 9:33 AM Documents on File Type Date 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 Advance Directive(s) 02/22/2022 10:59 AM Advance Directive(s) 02/17/2022 5:19 PM Advance Directive(s) 12/19/2021 8:26 AM Advance Directive(s) 12/09/2021 2:01 PM Advance Directive(s) 04/30/2020 10:34 AM Advance Directive(s) 04/19/2020 2:26 PM Advance Directive(s) 08/13/2018 9:33 AM Documents on File Type Date Recorded 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 Advance Directive(s) 03/16/2022 5:59 AM [...] Documents on File Type Date Recorded 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 Advance Directive(s) 08/13/2018 9:33 AM [...] Referral Specialty Diagnoses / Procedures Referred By Carly castro Referred To Contact CT IMAGING Diagnoses Primary osteoarthritis of left knee Arthritis of knee Preop testing Procedures CT KNEE WO IVCON LT CT SCAN OF LEG Castillo Allen, JUANITO [address] [place] [address] Ct Imaging Referral ID Status Reason Start Date Expiration Date V isits Requested Visits Authorized [id number] Closed Auto-Generate d Referral 10/07/2021 11/06/2022 1 1 Specialty Diagnoses / Procedures Referred By Contac t Referred To Contact [facility] [place] Diagnoses Radiculopathy, cervical Procedures [facility] Kat Palomo PA-C [address] [place] [address] Referral ID Status Reason Start Date Expiration Date Visits Requested Visits Authorized [id number] Ref Not Required PCP Requested Referral 4 09/26/2025 1 1 Specialty Diagnoses / Procedures Referred By Contac t Referred To Contact [facility] Diagnoses Nontraumatic tear of right rotator cuff, unspecified tear extent Procedures CONSULT TO PHYSICAL THERAPY PHYSICAL THERAPY EVALUATION HIGH COMPLEX 45 MINS Helio Cortez MD [address] [address] [facility] [place] [address] [place] [address] Referral ID Status Reason Start Date Expiration Date Visits Requested Visits Authorized [id number] Authorized PCP Requested Referral Auto-Generate d Referral 4 10/23/2025 99 99 Specialty Diagnoses / Procedures Referred By Carly t Referred To Contact MR IMAGING Diagnoses Nontraumatic tear of right rotator cuff, unspecified tear extent Rupture of right proximal biceps tendon, initial encounter Procedures MRI SHOULDER WO IVCON RIGHT MRI ANY JT UPPER EXTREMITY W/O CONTRAST MATRL Helio Cortez MD [address] [place] [address] Mr [facility] [place] [address] Referral ID Status Reason Start Date Expiration Date Visits Requested Visits Authorized [id number] Authorized Auto-Generat ed Referral 12/16/2024 01/15/2026 1 1 Referral ID Status Reason Start Date Expiration Date V isits Requested Visits Authorized [id number] Closed Auto-Generate d Referral 12/16/2024 01/15/2026 1 1 Additional Source Comments (unrecognized sect ion and content) No Status Records FoundNo Status Records FoundNo Status Records FoundNo Status Records FoundNo Status Records FoundNo Status Records Found INFORMATION SOURCE (unrecogn ized section and content) DATE CREATED AUTHOR 09/29/2018 [facility] DATE CREATED AUTHOR AUTHOR'S ORGANIZ ATION 05/28/2020 [facility] DATE CREATED AUTHOR AUTHOR'S ORGANIZ ATION 05/09/2022 [facility] DATE CREATED AUTHOR AUTHOR'S ORGANIZ ATION 12/16/2024 [facility] DATE CREATED AUTHOR AUTHOR'S ORGANIZ ATION 06/05/2025 [facility] DATE CREATED AUTHOR AUTHOR'S ORGANIZ ATION 07/08/2025 [facility] Reason for Visit (unrecogniz ed section and content) Reason Comments PT Progress Note Specialty Diagnoses / Procedures Referred By Contac t Referred To Contact [facility] Diagnoses Nontraumatic tear of right rotator cuff, unspecified tear extent Procedures PHYSICAL THERAPY EVALUATION HIGH COMPLEX 45 MINS Helio Cortez MD [address] [place] [address] Phone: tel: fax: [facility] [address] [place] [address] Referral ID Status Reason Start Date Expiration Date Visits Requested Visits Authorized [id number] Authorized PCP Requested Referral Auto-Generate d Referral 10/23/2025 99 99 Reason Comments Physical Therapy Specialty Diagnoses / Procedures Referred By Contac t Referred To Contact [facility] Diagnoses Nontraumatic tear of right rotator cuff, unspecified tear extent Procedures CONSULT TO PHYSICAL THERAPY PHYSICAL THERAPY EVALUATION HIGH COMPLEX 45 MINS Helio Cortez MD [address] [place] [address] Phone: tel: fax: [facility] [address] [place] [address] Reason Comments PT Discharge Specialty Diagnoses / Procedures Referred By Contac t Referred To Contact Physical Therapy Diagnoses Status post left knee replacement Procedures CONSULT TO PHYSICAL THERAPY Castillo Allen PA-C [address] [place] [address] Referral ID Status Reason Start Date Expiration Date V isits Requested Visits Authorized [id number] Authorized 03/21/2022 06/19/2022 99 99 Reason For Visit Description Start Date New - 1st visit with practice Preliminary reason f or visit data, not yet signed by the author as of right wrist Reason Comments Orders Reason Comments Pre-Op Visit Specialty Diagnoses / Procedures Referred By Contac t Referred To Contact CT IMAGING Diagnoses Primary osteoarthritis of left knee Arthritis of knee Preop testing Procedures CT KNEE WO IVCON LT CT SCAN OF LEG Castillo Allen PA-C [address] [place] [address] Ct Imaging Referral ID Status Reason Start Date Expiration Date V isits Requested Visits Authorized [id number] Closed Auto-Generate d Referral 10/07/2021 11/06/2022 1 [...] Pain Specialty Diagnoses / Procedures Referred By Contac t Referred To Contact MR IMAGING Diagnoses Nontraumatic tear of right rotator cuff, unspecified tear extent Rupture of right proximal biceps tendon, initial encounter Procedures MRI SHOULDER WO IVCON RIGHT MRI ANY JT UPPER EXTREMITY W/O CONTRAST Helio Hahn MD [address] [place] [address] [place] [id number] Referral ID Status Reason Start Date Expiration Date V isits Requested Visits Authorized [id number] Closed Auto-Generate d Referral 12/16/2024 01/15/2026 1 1 Reason Comments Established Patient Follow Up Pain Results - Mri Reason Comments Established Patient Started about 3 year s ago 2/10 pain (ache) is worse at night Denies any new injuries/ falls Follow Up Started about 3 year s ago 2/10 pain (ache) is worse at night Denies any new injuries/ falls Pain Started about 3 year s ago 2/10 pain (ache) is worse at night Denies [...] or prosecute any alcohol or drug abuse patient.[facility] the event this information is protected by the Federal Confidentiality of Alcohol and Drug Abuse Patient Records regulations: The Federal rules restrict any use of the information to criminally investigate or prosecute any alcohol or drug abuse patient.[facility] the event this information is protected by the Federal Confidentiality of Alcohol and Drug Abuse Patient Records regulations: The Federal rules restrict any use of the information to criminally investigate or prosecute any alcohol or drug abuse patient.[facility] the event this information is protected by the Federal Confidentiality of Alcohol and Drug Abuse Patient Records regulations: The Federal rules restrict any use of the information to criminally investigate or prosecute any alcohol or drug abuse patient.[facility] Center[facility] the event this information is protected by the Federal Confidentiality of Alcohol and Drug Abuse Patient Records regulations: The Federal rules restrict any use of the information to criminally investigate or prosecute any alcohol or drug abuse patient.[facility] Center[facility] the event this information is protected by the Federal Confidentiality of Alcohol and Drug Abuse Patient Records regulations: The Federal rules restrict any use of the information to criminally investigate or prosecute any alcohol or drug abuse patient.[facility] CenterIn the event this information is protected by the Federal Confidentiality of Alcohol and Drug Abuse Patient Records regulations: The Federal rules restrict any use of the information to criminally investigate or prosecute any alcohol or drug abuse patient.[facility] CenterIn the event this information is protected by the Federal Confidentiality of Alcohol and Drug Abuse Patient Records regulations: The Federal rules restrict any use of the information to criminally investigate or prosecute any alcohol or drug abuse patient.[facility] CenterIn the event this information is protected by the Federal Confidentiality of Alcohol and Drug Abuse Patient Records regulations: The Federal rules restrict any use of the information to criminally investigate or prosecute any alcohol or drug abuse patient.[facility] CenterIn the event this information is protected by the Federal Confidentiality of Alcohol and Drug Abuse Patient Records regulations: The Federal rules restrict any use of the information to criminally investigate or prosecute any alcohol or drug abuse patient.[facility] CenterIn the event this information is protected by the Federal Confidentiality of Alcohol and Drug Abuse Patient Records regulations: The Federal rules restrict any use of the information to criminally investigate or prosecute any alcohol or drug abuse patient.[facility] CenterIn the event this information is protected by the Federal Confidentiality of Alcohol and Drug Abuse Patient Records regulations: The Federal rules restrict any use of the information to criminally investigate or prosecute any alcohol or drug abuse patient.[facility] CenterIn the event this information is protected by the Federal Confidentiality of Alcohol and Drug Abuse Patient Records regulations: The Federal rules restrict any use of the information to criminally investigate or prosecute any alcohol or drug abuse patient.[facility] CenterIn the event this information is protected by the Federal Confidentiality of Alcohol and Drug Abuse Patient Records regulations: The Federal rules restrict any use of the information to criminally investigate or prosecute any alcohol or drug abuse patient.[facility] CenterIn the event this information is protected by the Federal Confidentiality of Alcohol and Drug Abuse Patient Records regulations: The Federal rules restrict any use of the information to criminally investigate or prosecute any alcohol or drug abuse patient.[facility] CenterIn the event this information is protected by the Federal Confidentiality of Alcohol and Drug Abuse Patient Records regulations: The Federal rules restrict any use of the information to criminally investigate or prosecute any alcohol or drug abuse patient.[facility] CenterIn the event this information is protected by the Federal Confidentiality of Alcohol and Drug Abuse Patient Records regulations: The Federal rules restrict any use of the information to criminally investigate or prosecute any alcohol or drug abuse patient.[facility] CenterIn the event this information is protected by the Federal Confidentiality of Alcohol and Drug Abuse Patient Records regulations: The Federal rules restrict any use of the information to criminally investigate or prosecute any alcohol or drug abuse patient.[facility] CenterIn the event this information is protected by the Federal Confidentiality of Alcohol and Drug Abuse Patient Records regulations: The Federal rules restrict any use of the information to criminally investigate or prosecute any alcohol or drug abuse patient.[facility] CenterIn the event this information is protected by the Federal Confidentiality of Alcohol and Drug Abuse Patient Records regulations: The Federal rules restrict any use of the information to criminally investigate or prosecute any alcohol or drug abuse patient.[facility] CenterIn the event this information is protected by the Federal Confidentiality of Alcohol and Drug Abuse Patient Records regulations: The Federal rules restrict any use of the information to criminally investigate or prosecute any alcohol or drug abuse patient.[facility] CenterIn the event this information is protected by the Federal Confidentiality of Alcohol and Drug Abuse Patient Records regulations: The Federal rules restrict any use of the information to criminally investigate or prosecute any alcohol or drug abuse patient.[facility] CenterIn the event this information is protected by the Federal Confidentiality of Alcohol and Drug Abuse Patient Records regulations: The Federal rules restrict any use of the information to criminally investigate or prosecute any alcohol or drug abuse patient.[facility] CenterIn the event this information is protected by the Federal Confidentiality of Alcohol and Drug Abuse Patient Records regulations: The Federal rules restrict any use of the information to criminally investigate or prosecute any alcohol or drug abuse patient.[facility] CenterIn the event this information is protected by the Federal Confidentiality of Alcohol and Drug Abuse Patient Records regulations: The Federal rules restrict any use of the information to criminally investigate or prosecute any alcohol or drug abuse patient.[facility] CenterIn the event this information is protected by the Federal Confidentiality of Alcohol and Drug Abuse Patient Records regulations: The Federal rules restrict any use of the information to criminally investigate or prosecute any alcohol or drug abuse patient.[facility] CenterIn the event this information is protected by the Federal Confidentiality of Alcohol and Drug Abuse Patient Records regulations: The Federal rules restrict any use of the information to criminally investigate or prosecute any alcohol or drug abuse patient.[facility] CenterIn the event this information is protected by the Federal Confidentiality of Alcohol and Drug Abuse Patient Records regulations: The Federal rules restrict any use of the information to criminally investigate or prosecute any alcohol or drug abuse patient.[facility] CenterIn the event this information is protected by the Federal Confidentiality of Alcohol and Drug Abuse Patient Records regulations: The Federal rules restrict any use of the information to criminally investigate or prosecute any alcohol or drug abuse patient.[facility] CenterIn the event this information is protected by the Federal Confidentiality of Alcohol and Drug Abuse Patient Records regulations: The Federal rules restrict any use of the information to criminally investigate or prosecute any alcohol or drug abuse patient.[facility] CenterIn the event this information is protected by the Federal Confidentiality of Alcohol and Drug Abuse Patient Records regulations: The Federal rules restrict any use of the information to criminally investigate or prosecute any alcohol or drug abuse patient.[facility] CenterIn the event this information is protected by the Federal Confidentiality of Alcohol and Drug Abuse Patient Records regulations: The Federal rules restrict any use of the information to criminally investigate or prosecute any alcohol or drug abuse patient.[facility] CenterIn the event this information is protected by the Federal Confidentiality of Alcohol and Drug Abuse Patient Records regulations: The Federal rules restrict any use of the information to criminally investigate or prosecute any alcohol or drug abuse patient.[facility] CenterIn the event this information is protected by the Federal Confidentiality of Alcohol and Drug Abuse Patient Records regulations: The Federal rules restrict any use of the information to criminally investigate or prosecute any alcohol or drug abuse patient.[facility] CenterIn the event this information is protected by the Federal Confidentiality of Alcohol and Drug Abuse Patient Records regulations: The Federal rules restrict any use of the information to criminally investigate or prosecute any alcohol or drug abuse patient.[facility] CenterIn the event this information is protected by the Federal Confidentiality of Alcohol and Drug Abuse Patient Records regulations: The Federal rules restrict any use of the information to criminally investigate or prosecute any alcohol or drug abuse patient.[facility] CenterIn the event this information is protected by the Federal Confidentiality of Alcohol and Drug Abuse Patient Records regulations: The Federal rules restrict any use of the information to criminally investigate or prosecute any alcohol or drug abuse patient.[facility] CenterIn the event this information is protected by the Federal Confidentiality of Alcohol and Drug Abuse Patient Records regulations: The Federal rules restrict any use of the information to criminally investigate or prosecute any alcohol or drug abuse patient.[facility] CenterIn the event this information is protected by the Federal Confidentiality of Alcohol and Drug Abuse Patient Records regulations: The Federal rules restrict any use of the information to criminally investigate or prosecute any alcohol or drug abuse patient.[facility] CenterIn the event this information is protected by the Federal Confidentiality of Alcohol and Drug Abuse Patient Records regulations: The Federal rules restrict any use of the information to criminally investigate or prosecute any alcohol or drug abuse patient.[facility] CenterIn the event this information is protected by the Federal Confidentiality of Alcohol and Drug Abuse Patient Records regulations: The Federal rules restrict any use of the information to criminally investigate or prosecute any alcohol or drug abuse patient.[facility] CenterIn the event this information is protected by the Federal Confidentiality of Alcohol and Drug Abuse Patient Records regulations: The Federal rules restrict any use of the information to criminally investigate or prosecute any alcohol or drug abuse patient.[facility] CenterIn the event this information is protected by the Federal Confidentiality of Alcohol and Drug Abuse Patient Records regulations: The Federal rules restrict any use of the information to criminally investigate or prosecute any alcohol or drug abuse patient.[facility] CenterIn the event this information is protected by the Federal Confidentiality of Alcohol and Drug Abuse Patient Records regulations: The Federal rules restrict any use of the information to criminally investigate or prosecute any alcohol or drug abuse patient.[facility] CenterIn the event this information is protected by the Federal Confidentiality of Alcohol and Drug Abuse Patient Records regulations: The Federal rules restrict any use of the information to criminally investigate or prosecute any alcohol or drug abuse patient.[facility] CenterIn the event this information is protected by the Federal Confidentiality of Alcohol and Drug Abuse Patient Records regulations: The Federal rules restrict any use of the information to criminally investigate or prosecute any alcohol or drug abuse patient.[facility] CenterIn the event this information is protected by the Federal Confidentiality of Alcohol and Drug Abuse Patient Records regulations: The Federal rules restrict any use of the information to criminally investigate or prosecute any alcohol or drug abuse patient.[facility] CenterIn the event this information is protected by the Federal Confidentiality of Alcohol and Drug Abuse Patient Records regulations: The Federal rules restrict any use of the information to criminally investigate or prosecute any alcohol or drug abuse patient.[facility] CenterIn the event this information is protected by the Federal Confidentiality of Alcohol and Drug Abuse Patient Records regulations: The Federal rules restrict any use of the information to criminally investigate or prosecute any alcohol or drug abuse patient.[facility] CenterIn the event this information is protected by the Federal Confidentiality of Alcohol and Drug Abuse Patient Records regulations: The Federal rules restrict any use of the information to criminally investigate or prosecute any alcohol or drug abuse patient.[facility] CenterIn the event this information is protected by the Federal Confidentiality of Alcohol and Drug Abuse Patient Records regulations: The Federal rules restrict any use of the information to criminally investigate or prosecute any alcohol or drug abuse patient.[facility] CenterIn the event this information is protected by the Federal Confidentiality of Alcohol and Drug Abuse Patient Records regulations: The Federal rules restrict any use of the information to criminally investigate or prosecute any alcohol or drug abuse patient.[facility] CenterIn the event this information is protected by the Federal Confidentiality of Alcohol and Drug Abuse Patient Records regulations: The Federal rules restrict any use of the information to criminally investigate or prosecute any alcohol or drug abuse patient.[facility] CenterIn the event this information is protected by the Federal Confidentiality of Alcohol and Drug Abuse Patient Records regulations: The Federal rules restrict any use of the information to criminally investigate or prosecute any alcohol or drug abuse patient.[facility] CenterIn the event this information is protected by the Federal Confidentiality of Alcohol and Drug Abuse Patient Records regulations: The Federal rules restrict any use of the information to criminally investigate or prosecute any alcohol or drug abuse patient.[facility] CenterIn the event this information is protected by the Federal Confidentiality of Alcohol and Drug Abuse Patient Records regulations: The Federal rules restrict any use of the information to criminally investigate or prosecute any alcohol or drug abuse patient.[facility] CenterIn the event this information is protected by the Federal Confidentiality of Alcohol and Drug Abuse Patient Records regulations: The Federal rules restrict any use of the information to criminally investigate or prosecute any alcohol or drug abuse patient.[facility] CenterIn the event this information is protected by the Federal Confidentiality of Alcohol and Drug Abuse Patient Records regulations: The Federal rules restrict any use of the information to criminally investigate or prosecute any alcohol or drug abuse patient.[facility] CenterIn the event this information is protected by the Federal Confidentiality of Alcohol and Drug Abuse Patient Records regulations: The Federal rules restrict any use of the information to criminally investigate or prosecute any alcohol or drug abuse patient.[facility] CenterIn the event this information is protected by the Federal Confidentiality of Alcohol and Drug Abuse Patient Records regulations: The Federal rules restrict any use of the information to criminally investigate or prosecute any alcohol or drug abuse patient.[facility] CenterIn the event this information is protected by the Federal Confidentiality of Alcohol and Drug Abuse Patient Records regulations: The Federal rules restrict any use of the information to criminally investigate or prosecute any alcohol or drug abuse patient.[facility] CenterIn the event this information is protected by the Federal Confidentiality of Alcohol and Drug Abuse Patient Records regulations: The Federal rules restrict any use of the information to criminally investigate or prosecute any alcohol or drug abuse patient.[facility] CenterIn the event this information is protected by the Federal Confidentiality of Alcohol and Drug Abuse Patient Records regulations: The Federal rules restrict any use of the information to criminally investigate or prosecute any alcohol or drug abuse patient.[facility] CenterIn the event this information is protected by the Federal Confidentiality of Alcohol and Drug Abuse Patient Records regulations: The Federal rules restrict any use of the information to criminally investigate or prosecute any alcohol or drug abuse patient.[facility] CenterIn the event this information is protected by the Federal Confidentiality of Alcohol and Drug Abuse Patient Records regulations: The Federal rules restrict any use of the information to criminally investigate or prosecute any alcohol or drug abuse patient.[facility] Care Teams (unrecognized sec tion and content) Deoiling Machine Operator Relationship Specialty Start Date End Date Giovanni Mclean V, DO [address] [place] [address] PCP - General 12/20/06 Deoiling Machine Operator Relationship Specialty Start Date End Date Giovanni Mclean V, DO [address] [place] [address] PCP - General 12/20/06 Deoiling Machine Operator Relationship Specialty Start Date End Date Giovanni Mclean V, DO [address] [place] [address] PCP - General 12/20/06 Deoiling Machine Operator Relationship Specialty Start Date End Date Giovanni Mclean V, DO [address] [place] [address] PCP - General 12/20/06 Deoiling Machine Operator Relationship Specialty Start Date End Date Giovanni Mclean V, DO [address] [place] [address] PCP - General 12/20/06 Deoiling Machine Operator Relationship Specialty Start Date End Date Giovanni Mclean V, DO [address] [place] [address] PCP - General 12/20/06 Jensen Elizabeth MD [address] [place] [address] Referring Orthopedics 03/17/22 Parminder Crouch MD [address] [place] [address] Home Care Physician Orthopedics 03/17/22 Avis Milton, PT [address] [place] [address] Cooking Casing And Drying Supervisor Post Acute Care 03/17/22 Deoiling Machine Operator Relationship Specialty Start Date End Date Giovanni Mclean V, DO [address] [place] [address] PCP - General 12/20/06 Jensen Elizabeth MD [address] [place] [address] Referring Orthopedics 03/17/22 Parminder Crouch MD [address] [place] [address] Home Care Physician Orthopedics 03/17/22 Avis Milton, PT [address] [place] [address] Cooking Casing And Drying Supervisor Post Acute Care 03/17/22 Deoiling Machine Operator Relationship Specialty Start Date End Date Giovanni Mclean V, DO [address] [place] [address] PCP - General 12/20/06 Jensen Elizabeth MD [address] [place] [address] Referring Orthopedics 03/17/22 Avis Milton, PT [address] [place] [address] Cooking Casing And Drying Supervisor Post Acute Care 03/17/22 Luis Holliday MD [address] [place] [address] Home Care Physician Orthopedics 03/19/22 Deoiling Machine Operator Relationship Specialty Start Date End Date Giovanni Mclean V, DO [address] [place] [address] PCP - General 12/20/06 Jensen Elizabeth MD [address] [place] [address] Referring Orthopedics 03/17/22 Avis Milton, PT [address] [place] [address] Cooking Casing And Drying Supervisor Post Acute Care 03/17/22 Luis Holliday MD [address] [place] [address] Home Care Physician Orthopedics 03/19/22 Deoiling Machine Operator Relationship Specialty Start Date End Date Giovanni Mclean V, DO [address] [place] [address] PCP - General 12/20/06 Jensen Elizabeth MD [address] [place] [address] Referring Orthopedics 03/17/22 Avis Milton, PT [address] [place] [address] Cooking Casing And Drying Supervisor Post Acute Care 03/17/22 Luis Holliday MD [address] [place] [address] Home Care Physician Orthopedics 03/19/22 Deoiling Machine Operator Relationship Specialty Start Date End Date Giovanni Mclean V, DO [address] [place] [address] PCP - General 12/20/06 Jensen Elizabeth MD [address] [place] [address] Referring Orthopedics 03/17/22 Avis Milton, PT [address] [place] [address] Cooking Casing And Drying Supervisor Post Acute Care 03/17/22 Luis Holliday MD [address] [place] [address] Home Care Physician Orthopedics 03/19/22 Deoiling Machine Operator Relationship Specialty Start Date End Date Giovanni Mclean V, DO [address] [place] [address] PCP - General 12/20/06 Jensen Elizabeth MD [address] [place] [address] Referring Orthopedics 03/17/22 Avis Milton, PT [address] [place] [address] Cooking Casing And Drying Supervisor Post Acute Care 03/17/22 Luis Holliday MD [address] [place] [address] Home Care Physician Orthopedics 03/19/22 Deoiling Machine Operator Relationship Specialty Start Date End Date Giovanni Mclean V, DO [address] [place] [address] PCP - General 12/20/06 Jensen Elizabeth MD [address] [place] [address] Referring Orthopedics 03/17/22 Avis Milton, PT [address] [place] [address] Cooking Casing And Drying Supervisor Post Acute Care 03/17/22 Luis Holliday MD [address] [place] [address] Home Care Physician Orthopedics 03/19/22 Deoiling Machine Operator Relationship Specialty Start Date End Date Giovanni Mclean V, DO [address] [place] [address] PCP - General 12/20/06 Jensen Elizabeth MD [address] [place] [address] Referring Orthopedics 03/17/22 Avis Milton, PT [address] [place] [address] Cooking Casing And Drying Supervisor Post Acute Care 03/17/22 Luis Holliday MD [address] [place] [address] Home Care Physician Orthopedics 03/19/22 Deoiling Machine Operator Relationship Specialty Start Date End Date Giovanni Mclean V, DO [address] [place] [address] PCP - General 12/20/06 Jensen Elizabeth MD [address] [place] [address] Referring Orthopedics 03/17/22 Avis Milton, PT [address] [place] [address] Cooking Casing And Drying Supervisor Post Acute Care 03/17/22 Luis Holliday MD [address] [place] [address] Home Care Physician Orthopedics 03/19/22 Deoiling Machine Operator Relationship Specialty Start Date End Date Giovanni Mclean V, DO [address] [place] [address] PCP - General 12/20/06 Jensen Elizabeth MD [address] [place] [address] Referring Orthopedics 03/17/22 Avis Milton, PT [address] [place] [address] Cooking Casing And Drying Supervisor Post Acute Care 03/17/22 Luis Holliday MD [address] [place] [address] Home Care Physician Orthopedics 03/19/22 Deoiling Machine Operator Relationship Specialty Start Date End Date Giovanni Mclean V, DO [address] [place] [address] PCP - General 12/20/06 Jensen Elizabeth MD [address] [place] [address] Referring Orthopedics 03/17/22 Avis Milton, PT [address] [place] [address] Cooking Casing And Drying Supervisor Post Acute Care 03/17/22 Luis Holliday MD [address] [place] [address] Home Care Physician Orthopedics 03/19/22 Deoiling Machine Operator Relationship Specialty Start Date End Date Giovanni Mclean V, DO [address] [place] [address] PCP - General 12/20/06 Jensen Elizabeth MD [address] [facility] [place] [address] Referring Orthopedics 03/17/22 Avis Milton, PT [address] [place] [address] Cooking Casing And Drying Supervisor Post Acute Care 03/17/22 Luis Holliday MD [address] [place] [address] 15368 Home Care Physician Orthopedics 03/19/22 Deoiling Machine Operator Relationship Specialty Start Date End Date Giovanni Mclean V, DO [address] [place] [address] PCP - General 12/20/06 Jensen Elizabeth MD [address] [place] [address] Referring Orthopedics 03/17/22 Avis Milton, PT [address] [place] [address] Cooking Casing And Drying Supervisor Post Acute Care 03/17/22 Luis Holliday MD [address] [place] [address] 16355 Home Care Provider Orthopedics 03/19/22 Deoiling Machine Operator Relationship Specialty Start Date End Date Giovanni Mclean V, DO [address] [place] [address] PCP - General 12/20/06 Jensen Elizabeth MD [address] [place] [address] Referring Orthopedics 03/17/22 Avis Milton, PT [address] [place] [address] Cooking Casing And Drying Supervisor Post Acute Care 03/17/22 Luis Holliday MD [address] [place] [address] 75260 Home Care Provider Orthopedics 03/19/22 Deoiling Machine Operator Relationship Specialty Start Date End Date Giovanni Mclean V, DO [address] [place] [address] PCP - General 12/20/06 Jensen Elizabeth MD [address] [place] [address] Referring Orthopedics 03/17/22 Luis Holliday MD [address] [place] [address] 37263 Home Care Provider Orthopedics 03/19/22 Deoiling Machine Operator Relationship Specialty Start Date End Date Giovanni Mclean V, DO [address] [place] [address] PCP - General 12/20/06 Jensen Elizabeth MD [address] [place] [address] Referring Orthopedics 03/17/22 Luis Holliday MD [address] [place] [address] 54057 Home Care Provider Orthopedics 03/19/22 Deoiling Machine Operator Relationship Specialty Start Date End Date Giovanni Mclean V, DO [address] [place] [address] PCP - General 12/20/06 Jensen Elizabeth MD [address] [place] [address] Referring Orthopedics 03/17/22 Luis Holliday MD [address] [place] [address] 86083 Home Care Provider Orthopedics 03/19/22 Deoiling Machine Operator Relationship Specialty Start Date End Date Giovanni Mclean V, DO [address] [place] [address] PCP - General 12/20/06 Jensen Elizabeth MD [address] [place] [address] Referring Orthopedics 03/17/22 Luis Holliday MD [address] [place] [address] 12410 Home Care Provider Orthopedics 03/19/22 Deoiling Machine Operator Relationship Specialty Start Date End Date Giovanni Mclean V, DO [address] [place] [address] PCP - General 12/20/06 Jensen Elizabeth MD [address] [place] [address] Referring Orthopedics 03/17/22 Luis Holliday MD [address] [place] [address] 82576 Home Care Provider Orthopedics 03/19/22 Deoiling Machine Operator Relationship Specialty Start Date End Date Giovanni Mclean V, DO [address] [place] [address] PCP - General 12/20/06 Jensen Elizabeth MD [address] [place] [address] Referring Orthopedics 03/17/22 Luis Holliday MD [address] [place] [address] 34860 Home Care Provider Orthopedics 03/19/22 Deoiling Machine Operator Relationship Specialty Start Date End Date Giovanni Mclean V, DO [address] [place] [address] PCP - General 12/20/06 Jensen Elizabeth MD [address] [place] [address] Referring Orthopedics 03/17/22 Luis Holliday MD [address] [place] [address] 07898 Home Care Provider Orthopedics 03/19/22 Deoiling Machine Operator Relationship Specialty Start Date End Date Giovanni Mclean V, DO [address] [place] [address] PCP - General 12/20/06 Jensen Elizabeth MD [address] [place] [address] Referring Orthopedics 03/17/22 Luis Holliday MD [address] [place] [address] 28897 Home Care Provider Orthopedics 03/19/22 Deoiling Machine Operator Relationship Specialty Start Date End Date Giovanni Mclean V, DO [address] [place] [address] PCP - General 12/20/06 Jensen Elizabeth MD [address] [place] [address] Referring Orthopedics 03/17/22 Luis Holliday MD [address] [place] [address] 25010 Home Care Provider Orthopedics 03/19/22 Deoiling Machine Operator Relationship Specialty Start Date End Date Giovanni Mclean V, DO [address] [place] [address] PCP - General 12/20/06 Jensen Elizabeth MD [address] [place] [address] Referring Orthopedics 03/17/22 Luis Holliday MD [address] [place] [address] 55921 Home Care Provider Orthopedics 03/19/22 Deoiling Machine Operator Relationship Specialty Start Date End Date Giovanni Mclean V, DO [address] [place] [address] PCP - General 12/20/06 Jensen Elizabeth MD [address] [place] [address] Referring Orthopedics 03/17/22 Luis Holliday MD [address] [place] [address] 57987 Home Care Provider Orthopedics 03/19/22 Deoiling Machine Operator Relationship Specialty Start Date End Date Giovanni Mclean V, DO [address] [place] [address] PCP - General 12/20/06 Jensen Elizabeth MD [address] [place] [address] Referring Orthopedics 03/17/22 Luis Holliday MD [address] [place] [address] 65226 Home Care Provider Orthopedics 03/19/22 Deoiling Machine Operator Relationship Specialty Start Date End Date Giovanni Mclean V, DO [address] [place] [address] PCP - General 12/20/06 Jensen Elizabeth MD [address] [place] [address] Referring Orthopedics 03/17/22 Luis Holliday MD [address] [place] [address] 07561 Home Care Provider Orthopedics 03/19/22 Deoiling Machine Operator Relationship Specialty Start Date End Date Giovanni Mclean V, DO [address] [place] [address] PCP - General 12/20/06 Jensen Elizabeth MD [address] [place] [address] Referring Orthopedics 03/17/22 Luis Holliday MD [address] [place] [address] 32285 Home Care Provider Orthopedics 03/19/22 Deoiling Machine Operator Relationship Specialty Start Date End Date Giovanni Mclean V, DO [address] [place] [address] PCP - General 12/20/06 Jensen Elizabeth MD [address] [place] [address] Referring Orthopedics 03/17/22 Luis Holliday MD [address] [place] [address] 48326 Home Care Provider Orthopedics 03/19/22 Deoiling Machine Operator Relationship Specialty Start Date End Date Giovanni Mclean V, DO [address] [place] [address] PCP - General 12/20/06 Jensen Elizabeth MD [address] [place] [address] Referring Orthopedics 03/17/22 Luis Holliday MD [address] [place] [address] 52084 Home Care Provider Orthopedics 03/19/22 Deoiling Machine Operator Relationship Specialty Start Date End Date Giovanni Mclean V, DO [address] [place] [address] PCP - General 12/20/06 Jensen Elizabeth MD [address] [place] [address] Referring Orthopedics 03/17/22 Luis Holliday MD [address] [place] [address] 42645 Home Care Provider Orthopedics 03/19/22 Deoiling Machine Operator Relationship Specialty Start Date End Date Giovanni Mclean V, DO [address] [place] [address] PCP - General 12/20/06 Jensen Elizabeth MD [address] [place] [address] Referring Orthopedics 03/17/22 Luis Holliday MD [address] [place] [address] 28277 Home Care Provider Orthopedics 03/19/22 Deoiling Machine Operator Relationship Specialty Start Date End Date Giovanni Mclean V, DO [address] [place] [address] PCP - General 12/20/06 Jensen Elizabeth MD [address] [place] [address] Referring Orthopedics 03/17/22 Luis Holliday MD [address] [place] [address] 35375 Home Care Provider Orthopedics 03/19/22 Deoiling Machine Operator Relationship Specialty Start Date End Date Giovanni Mclean V, DO [address] [place] [address] PCP - General 12/20/06 Jensen Elizabeth MD [address] [place] [address] Referring Orthopedics 03/17/22 Luis Holliday MD [address] [place] [address] 18894 Home Care Provider Orthopedics 03/19/22 Deoiling Machine Operator Relationship Specialty Start Date End Date Giovanni Mclean V, DO [address] [place] [address] PCP - General 12/20/06 Jensen Elizabeth MD [address] [place] [address] Referring Orthopedics 03/17/22 Luis Holliday MD [address] [place] [address] 59917 Home Care Provider Orthopedics 03/19/22 Deoiling Machine Operator Relationship Specialty Start Date End Date Giovanni Mclean V, DO [address] [place] [address] PCP - General 12/20/06 Jensen Elizabeth MD [address] [place] [address] Referring Orthopedics 03/17/22 Luis Holliday MD [address] [place] [address] 31422 Home Care Provider Orthopedics 03/19/22 Deoiling Machine Operator Relationship Specialty Start Date End Date Giovanni Mclean V, DO [address] [place] [address] PCP - General 12/20/06 Jensen Elizabeth MD [address] [place] [address] Referring Orthopedics 03/17/22 Luis Holliday MD [address] [place] [address] 25930 Home Care Provider Orthopedics 03/19/22 Deoiling Machine Operator Relationship Specialty Start Date End Date Giovanni Mclean V, DO [address] [place] [address] PCP - General 12/20/06 Jensen Elizabeth MD [address] [place] [address] Referring Orthopedics 03/17/22 Luis Holliday MD [address] [place] [address] 69200 Home Care Provider Orthopedics 03/19/22 Deoiling Machine Operator Relationship Specialty Start Date End Date Giovanni Mclean V, DO [address] [place] [address] PCP - General 12/20/06 Jensen Elizabeth MD [address] [place] [address] Referring Orthopedics 03/17/22 Luis Holliday MD [address] [place] [address] 67383 Home Care Provider Orthopedics 03/19/22 FOR RECORDS [...] BE BASED ON THE PRIMARY CLINICAL RECORDS. [facility]. provides no warranty or guarantee of the accuracy or completeness of information in this document.
--- NOTE | 2025-07-11 17:14 | PCM.HP.STD ---
HPI - General General Date of Admission: 07/11/25 Date of Service: 07/11/25 Chief Complaint: Fall on the left side hip and shoulder. No LOC HPI Narrative ES GILMAN, is a 74 M came to ED after he fell down while working on the bench. Patient has bilateral hip replacement/arthroplasty. While standing and scraping on the wall, the bench flipped over and he fell on the left side hurting his left shoulder and hip. He denies hitting head or loss of consciousness. No headache or neck pain. Patient felt he Pain moving his left hip and while lifting left shoulder, about 6-7/10 intensity. At rest he does not feel pain. He has chronic left clavicular fracture. In the ED, x-rays were done and found fracture of left pubic bone and L of sacrum. As patient is not able to ambulate or move therefore admitted. [facility] Medical History Encounter for screening for COVID-19 Home Medications ?Medication ?Instructions ?Recorded ?Last Taken ?Type NK 07/11/25 Unknown History Allergy/AdvReac Type Severity Reaction Status Date / Time latex Allergy Intermediate . Verified 07/11/25 13:07 Social History Smoking Status: Never smoker ROS ROS Narrative Constitutional: Reports fatigue and weakness. No fever. HEENT: Reports systems reviewed and no addt'l complaints, except as documented Respiratory/Chest: No acute shortness of breath or respiratory distress or wheezing. CVS: No acute chest pain or shortness of breath. Gastrointestinal: Denies coffee ground emesis, hematemesis or vomiting Genitourinary: Denies burning urination or new urinary tract symptoms Musculoskeletal: Bilateral hip replacement. Rest as described in HPI. Neurologic: Denies seizure-like symptoms. skin: No ulcer. No rash Endocrinology: Reports systems reviewed and no addt'l complaints, except as documented Hematologic/Lymphatic: Reports systems reviewed and no addt'l complaints, except as documented Rest 14 ROS are negative except as mentioned in HPI Vital Signs Vital Signs Vital Signs: 07/11/25 13:06 07/11/25 15:06 07/11/25 16:28 Temperature 98.3 F 98 F Temperature Source Oral Pulse Rate 77 76 76 Respiratory Rate 16 16 16 Blood Pressure 117/80 135/78 H 135/78 H Blood Pressure Mean 92 97 97 Pulse Ox 98 97 97 Oxygen Delivery Method Room Air Room Air Weight Weight: 220 lb 7.396 oz Body Mass Index (BMI) 30.7 Physical Exam Narrative General: Alert, Oriented x3, Cooperative. BMI 30.7 kg/m? HEENT: Atraumatic, PERRLA, EOMI, Normocephalic. Oral: No Gingival or Mucosal Lesions/ Ulcerations Neck: Supple, No JVD, Negative Carotid Bruits Chest wall/Lungs: Air entry diminished in bilateral lung bases. No crepitation/rhonchi Cardiovascular: Regular rate and rhythm, Normal S1,S2, No M/G/R Abdomen: Bowel Sounds Present, Soft, Non Tender, Non-Distended : No dysuria. No renal angle tenderness. No suprapubic tenderness. Extremities: No edema, Capillary Refill Less than 3 Seconds. Not able to ambulate Skin: No rashes, No breakdown Musculoskeletal: Tenderness present over left pubic bone. Tender when able to extend or abduct left hip on the bed. Tenderness also on lifting left shoulder above 60 degree. ROM restricted over left hip and left shoulder. Neurological: Cranial nerves II-XII grossly intact, DTR 2+/4. No acute focal neurological deficit. Psych/Mental Status: Normal Affect, Appropriate. Results Lab / Micro Data 07/11/25 15:48 07/11/25 15:48 Labs: Laboratory Results - last 24 hr 07/11/25 15:48: WBC 16.4 H, RBC 5.23, Hgb 15.0, Hct 44.9, MCV 85.9, MCH 28.7, MCHC 33.4, RDW Std Deviation 41.6, RDW Coeff of Petr 13.2, Plt Count 238, MPV 10.3, Immature Gran % (Auto) 0.900, Neut % (Auto) 82.5 H, Lymph % (Auto) 8.8 L, [place] % (Auto) 6.7, Eos % (Auto) 0.7, Baso % (Auto) 0.4, Absolute Neuts (auto) 13.6 H, Absolute Lymphs (auto) 1.45, Nucleated RBC % 0, Sodium 138, Potassium 4.2, Chloride 106, Carbon Dioxide 20.7 L, Anion Gap 11, BUN 19, Creatinine 0.73, Estim Creat Clear Calc 96.12, Est GFR (MDRD) Non-Af 95, BUN/Creatinine Ratio 25.5 H, Glucose 109 H, Calcium 9.2 Imaging Radiology Impression Hip/Pelvis X-Ray 07/11/25 13:57 IMPRESSION: 1. Fractures of the left superior and inferior pubic rami. 2. Suspect a fracture of the left sacral ala. 3. Other findings as noted. Reading Location: [facility] Shoulder X-Ray 07/11/25 13:57 IMPRESSION: 1. No evidence of acute fracture or dislocation. 2. 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 3. Arthritis of the acromioclavicular and glenohumeral joints and rotator cuff arthropathy. Reading Location: [facility] Assessment & Plan Assessment/Plan (1) Fall: (2) Sacral fracture: QUALIFIERS: Encounter type: initial encounter Fracture type: closed (3) Closed fracture of pubic ramus: QUALIFIERS: Encounter type: initial encounter Laterality: left Qualified Code(s): S32.592A - Other specified fracture of left pubis, initial encounter for closed fracture PLAN: Plan This 74-year-old gentleman being admitted after fall and fracture of pubic bone and angle of sacrum. 1. Acute debility, unable to do ADLs/ambulate due to pelvic bone fracture: X-ray studies in the ED individually reviewed and shows fracture of left superior inferior deep pubic rami. Suspected vertical fracture of left sacral [place]. Degenerative arthritis of both SI joints. Patient is being admitted with PT and OT consult. Pain control. Muscle relaxant as needed ordered. Management is nonoperative. Heart rate and blood pressure in normal range. 2. Left shoulder soft tissue injury: Left shoulder x-ray shows old ununited fracture of the distal clavicle. No evidence of acute fracture or dislocation. 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 Patient recently had a right shoulder arthroscopic surgery for rotator cuff disorder but he did not fall on the right side. Rest as mentioned above. 3. Chronic degenerative arthritis of bilateral hips, status post hip replacement, bilateral SI joints and lumbar degenerative arthritis:: At home patient on hydrocodone/[place]. Not on any other prescribed medication. 4. DVT prophylaxis, high risk: Heparin 5000 units subcutaneous twice daily ordered. Bilateral SCDs. Living will/advanced directive/end of life care: Patient does not have living will or advanced directive. He does not have designated power of bellman for health. After discussion of benefits/risks procedures involved with full code, DNR CC arrest and DNR CC, the patient opted for full code. Patient does want artificial life support including intubation, tube feed, ventilator and/chest compression, central venous catheter, vasopressor and DC shock if needed Total time spent in [id number] encounter in discussion of advanced directive 17 minutes. Laboratory Results 07/11/25 15:48: WBC 16.4 H, RBC 5.23, Hgb 15.0, Hct 44.9, MCV 85.9, MCH 28.7, MCHC 33.4, RDW Std Deviation 41.6, RDW Coeff of Petr 13.2, Plt Count 238, MPV 10.3, Immature Gran % (Auto) 0.900, Neut % (Auto) 82.5 H, Lymph % (Auto) 8.8 L, [place] % (Auto) 6.7, Eos % (Auto) 0.7, Baso % (Auto) 0.4, Absolute Neuts (auto) 13.6 H, Absolute Lymphs (auto) 1.45, Nucleated RBC % 0, Sodium 138, Potassium 4.2, Chloride 106, Carbon Dioxide 20.7 L, Anion Gap 11, BUN 19, Creatinine 0.73, Estim Creat Clear Calc 96.12, Est GFR (MDRD) Non-Af 95, BUN/Creatinine Ratio 25.5 H, Glucose 109 H, Calcium 9.2 Clinical Impression(s) from Imaging Studies Hip/Pelvis X-Ray 07/11/25 13:57 IMPRESSION: 1. Fractures of the left superior and inferior pubic rami. 2. Suspect a fracture of the left sacral ala. 3. Other findings as noted. Reading Location: [id number] Shoulder X-Ray 07/11/25 13:57 IMPRESSION: 1. No evidence of acute fracture or dislocation. 2. 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 3. Arthritis of the acromioclavicular and glenohumeral joints and rotator cuff arthropathy. Reading Location: [id number] Charges/Coding Visit Charges Inpatient E&M: 68532 Init Hosp L3 Procedures Hospitalists Procedures: 86734 Advncd Care Plan 30 Min
[2025-07-11] MEDS: Lactated Ringers 1,000 ML 75 ML IV (17:40)
[2025-07-11 20:30] VITALS: O2SAT 97
[2025-07-11 20:45] VITALS: BP 119/91; PULSE 83; RESP 17; TEMP 36.6; O2SAT 96
[2025-07-11] MEDS: Heparin Injection (Vial) 5,000 UNIT/ML VIAL 5000 UNIT SC (21:02)
[2025-07-12 02:40] VITALS: BP 135/82; PULSE 60; RESP 18; TEMP 36.4; O2SAT 96
[2025-07-12 05:12] VITALS: BMI 30.1
[2025-07-12 06:25] LABS: Hematocrit 42.6 % (40-54); Hemoglobin 13.9 g/dL (13.0-16.5); Immature Granulocytes Count 0.050 X10^3/uL (0.0-0.0); Mean Corp Hgb Conc 32.6 g/dL (32-36); Mean Corpuscular Volume 88.9 fL (80-94); Mean Platelet Vol. 10.8 fl (6.2-12.0); NRBC Flagged by Analyzer 0 % (0-5); Platelet Count 218 K/mm3 (150-450); RBC Distribution Width CV 13.6 % (11.6-14.6); RBC Distribution Width SD 44.8 fl (35.1-43.9); Red Blood Count 4.79 M/mm3 (4.6-6.2); White Blood Count 8.6 K/mm3 (4.4-11.0)
[2025-07-12 06:50] LABS: Anion Gap 9 (5-15); BUN 16 mg/dL (4-19); BUN/Creat Ratio 19.6 RATIO (10-20); Calcium,Total 8.5 mg/dL (7.6-11.0); Carbon Dioxide 24.2 mmol/L (21.0-32.0); Chloride 104 mmol/L (98-108); Estimated Creatinine Clearance 91.65 ml/min (50-250); Glucose 112 mg/dL (70-99); Potassium 4.2 mmol/L (3.3-5.1)
[2025-07-12 07:44] VITALS: BP 129/73; PULSE 73; RESP 18; TEMP 36.6; O2SAT 97
--- NOTE | 2025-07-12 09:11 | PN.HOSP_ITS ---
Reason for Visit Chief Complaint: Fall on the left side hip and shoulder. No LOC Subjective Subjective Saw patient at bedside this morning. Patient was sitting in bedside chair fairly comfortably, conversing normally and in no acute distress. Noted that at rest he has minimal pain but with much of any movement, he has significant pain. He has been trying to utilize the walker to ambulate but noted that he had right shoulder rotator cuff surgery at [facility] about 7 weeks ago, and he feels like he putting a lot of weight on his arms and shoulders with a walker. Was asking for crutches or potentially something else to help with ambulation if possible. He was okay with trialing IV pain medication especially prior to working with physical therapy. No other acute concerns this morning. Objective Data Objective Data Vital Signs: Vital Signs Temp Pulse Resp BP Pulse Ox O2 Del Method 97.8 F 73 18 129/73 H 97 Room Air 07/12/25 07:44 07/12/25 07:44 07/12/25 07:44 07/12/25 07:44 07/12/25 07:44 07/12/25 07:44 Oxygen Delivery Method Room Air Weight: 97.7 kg Body Mass Index (BMI) 30.1 Intake & Output: Intake and Output for Last 24 Hours 07/10/25 07/11/25 07/12/25 23:59 23:59 23:59 Intake Total 180 / 480 1450 / 1450 Output Total 850 / 850 Balance 180 / 130 600 / 600 Lab / Micro Data 07/12/25 05:01 07/12/25 05:01 Labs: Laboratory Results - last 24 hr 07/11/25 15:48: WBC 16.4 H, RBC 5.23, Hgb 15.0, Hct 44.9, MCV 85.9, MCH 28.7, MCHC 33.4, RDW Std Deviation 41.6, RDW Coeff of Petr 13.2, Plt Count 238, MPV 10.3, Immature Gran % (Auto) 0.900, Neut % (Auto) 82.5 H, Lymph % (Auto) 8.8 L, Mckenzie % (Auto) 6.7, Eos % (Auto) 0.7, Baso % (Auto) 0.4, Absolute Neuts (auto) 13.6 H, Absolute Lymphs (auto) 1.45, Nucleated RBC % 0, Sodium 138, Potassium 4.2, Chloride 106, Carbon Dioxide 20.7 L, Anion Gap 11, BUN 19, Creatinine 0.73, Estim Creat Clear Calc 96.12, Est GFR (MDRD) Non-Af 95, BUN/Creatinine Ratio 25.5 H, Glucose 109 H, Calcium 9.2 07/12/25 05:01: WBC 8.6, RBC 4.79, Hgb 13.9, Hct 42.6, MCV 88.9, MCH 29.0, MCHC 32.6, RDW Std Deviation 44.8 H, RDW Coeff of Petr 13.6, Plt Count 218, MPV 10.8, Immature Gran % (Auto) 0.600, Neut % (Auto) 63.9, Lymph % (Auto) 20.0, Mckenzie % (Auto) 12.9 H, Eos % (Auto) 2.1, Baso % (Auto) 0.5, Absolute Neuts (auto) 5.5, Absolute Lymphs (auto) 1.72, Nucleated RBC % 0, Sodium 138, Potassium 4.2, Chloride 104, Carbon Dioxide 24.2, Anion Gap 9, BUN 16, Creatinine 0.83, Estim Creat Clear Calc 91.65, Est GFR (MDRD) Non-Af 91, BUN/Creatinine Ratio 19.6, G lucose 112 H, Calcium 8.5 Radiography Diagnostic Testing: Radiology Impression Hip/Pelvis X-Ray 07/11/25 13:57 IMPRESSION: 1. Fractures of the left superior and inferior pubic rami. 2. Suspect a fracture of the left sacral ala. 3. Other findings as noted. Reading Location: [facility] Shoulder X-Ray 07/11/25 13:57 IMPRESSION: 1. No evidence of acute fracture or dislocation. 2. 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 3. Arthritis of the acromioclavicular and glenohumeral joints and rotator cuff arthropathy. Reading Location: [facility] Physical Exam Const alert, oriented x3 and no apparent distress Constitutional Narrative: Pleasant elderly male, class I obesity, sitting back fairly comfortably in bedside chair, conversing normally, in no acute distress. General Appearance: cooperative and comfortable HEENT normocephalic, head/scalp atraumatic, hearing grossly normal bilaterally, nasal mucous membranes and turbinates normal and moist oral mucous membranes Eyes PERRL, EOMs intact bilaterally and conjunctivae normal Neck full ROM Chest inspection of chest normal Resp normal respiratory effort, normal air movement, no use of accessory muscles and clear to auscultation bilaterally Cardio regular rate, regular rhythm, no murmurs and peripheral pulses 2+ throughout GI normal to inspection, nondistended, normoactive bowel sounds, soft to palpation, non-tender and non-distended Back/Spine Back/Spine Narrative: Range of motion limited due to significant pain. Mild to moderate tenderness palpation in low back/sacral area. Extremity normal to inspection and no pedal edema Skin no rashes or lesions noted Psych mental status grossly normal Assessment & Plan Assessment/Plan (1) Closed fracture of pubic ramus: QUALIFIERS: Encounter type: initial encounter Laterality: left Q ualified Code(s): S32.592A - Other specified fracture of left pubis, initial encounter for closed fracture (2) Fall: (3) Sacral fracture: QUALIFIERS: Encounter type: initial encounter Fracture type: c losed (4) Inability to ambulate due to hip: PLAN: Plan Patient is a 74-year-old male who presented to [facility] ED on 07/11/2025 with left hip and low back pain after a fall at home. 1. Acute debility with inability to ambulate due to pelvic bone fractures secondary to mechanical fall ? PT/OT/case management following. Mechanical fall off of a bench while doing drywalling; fell onto his left side. Hip/pelvis x-ray showed fractures of the left superior and inferior pubic rami, as well as a suspected fracture of the left sacral ala. Unable to ambulate due to significant pain, and he has difficulty ambulating with a walker given shoulder issues as below. Pain control with scheduled Tylenol, oxycodone as needed and IV morphine as needed. Planning for SNF placement on discharge; not medically ready for discharge today due to intractable pain but should be medically ready in the next 1 to 2 days. 2. Left shoulder soft tissue injury, history of left clavicle fracture, history of bilateral rotator cuff arthropathy with recent right rotator cuff repair ? Left shoulder x-ray showed no acute fracture or dislocation; did show old fracture of the distal clavicle as well as arthritis of the AC and glenohumeral joints and rotator cuff arthropathy. Patient notably just had his right rotator cuff repaired at [facility] about 7 weeks ago. These shoulder issues are contributing to his difficulty using a walker with ambulation as above. Appreciate therapy recommendations. Pain control as above. 3. History of bilateral hip replacements, chronic degenerative arthritis of lumbar spine and bilateral SI joints ? Hip/pelvis x-ray on admit showed pelvic fractures as above, as well as degenerative disease of both SI joints and throughout the lumbar spine. Further management as above. DVT prophylaxis: Heparin subcu and SCDs CODE STATUS: Full code, verified Expected disposition: SNF, 1 to 2 days Total clinical time spent by myself addressing the patient's medical issues, reviewing all the data, and collaborating with patient's care team: 35 minutes. Charges/Coding Visit Charges Inpatient E&M: 91834 Subs Hosp L2
[2025-07-12] MEDS: Senna/Docusate Sodium 1 Tablet 2 TABLET PO ×2 (10:09→20:51)
[2025-07-12] MEDS: Heparin Injection (Vial) 5,000 UNIT/ML VIAL 5000 UNIT SC ×2 (10:10→20:50)
[2025-07-12 15:00] VITALS: BP 128/84; PULSE 86; RESP 17; TEMP 36.8; O2SAT 94
[2025-07-12 20:28] VITALS: BP 117/70; PULSE 79; RESP 18; TEMP 36.6; O2SAT 95
[2025-07-12 22:26] VITALS: BP 136/69; PULSE 79; RESP 18; TEMP 36.4; O2SAT 95
[2025-07-13 03:08] VITALS: BP 138/86; PULSE 69; RESP 17; TEMP 36.3; O2SAT 97
[2025-07-13 05:28] VITALS: BMI 31.0
[2025-07-13 08:31] VITALS: O2SAT 98
[2025-07-13 10:53] VITALS: BP 139/76; PULSE 89; RESP 16; TEMP 36.6; O2SAT 95
[2025-07-13] MEDS: Heparin Injection (Vial) 5,000 UNIT/ML VIAL 5000 UNIT SC ×2 (11:01→21:30)
[2025-07-13] MEDS: Senna/Docusate Sodium 1 Tablet 2 TABLET PO ×2 (11:03→21:30)
--- NOTE | 2025-07-13 15:30 | PN.HOSP_ITS ---
Reason for Visit Chief Complaint: Fall on the left side hip and shoulder. No LOC Subjective Subjective Patient was seen and examined today, he requested to try crutches to ambulate with, despite using crutches, patient was only able to walk a few steps due to pain. I told the patient that he should consider going to a half-way facility for short-term rehab services. Objective Data Objective Data Vital Signs: Vital Signs Temp Pulse Resp BP Pulse Ox O2 Del Method 97.9 F 89 16 139/76 H 95 Room Air 07/13/25 10:53 07/13/25 10:53 07/13/25 10:53 07/13/25 10:53 07/13/25 10:53 07/13/25 10:53 Oxygen Delivery Method Room Air Weight: 100.6 kg Body Mass Index (BMI) 31.0 Intake & Output: Intake and Output for Last 24 Hours 07/11/25 07/12/25 07/13/25 23:59 23:59 23:59 Intake Total 180 / 480 2290 / 2540 450 / 450 Output Total 1150 / 1150 630 / 630 Balance 180 / 130 1140 / 1390 -180 / -180 Lab / Micro Data 07/12/25 05:01 07/12/25 05:01 Physical Exam Const alert, oriented x3, no apparent distress and healthy appearing General Appearance: cooperative, well kempt and well developed Orientation / Consciousness: awake, oriented to person, oriented to place and oriented to time HEENT normocephalic, head/scalp atraumatic and moist oral mucous membranes Eyes PERRL, EOMs intact bilaterally and conjunctivae normal Neck supple, no JVD, thyroid normal and no carotid bruits General: trachea midline Resp normal respiratory effort, no retractions, no use of accessory muscles and clear to auscultation bilaterally Auscultation: Negative for rales, rhonchi or wheezes Cardio regular rate, regular rhythm, S1 normal heart sound, S2 normal heart sound, no murmurs, no rub and no gallops GI normal to inspection, nondistended, normoactive bowel sounds, soft to palpation, non-tender and non-distended Extremity no clubbing, cyanosis or edema Skin no rashes or lesions noted General Skin Exam: no breakdown Neuro oriented x3, CN's II-XII intact bilaterally, no focal motor deficits and no sensory deficits noted Sensorium / Orientation: awake and alert Speech: speech normal Psych affect normal Assessment & Plan Assessment/Plan (1) Closed fracture of pubic ramus: QUALIFIERS: Encounter type: initial encounter Laterality: left Q ualified Code(s): S32.592A - Other specified fracture of left pubis, initial encounter for closed fracture PLAN: Plan 1. Acute debility secondary to fractures of the left superior and inferior pubic rami and a fracture of the left sacral ala-PT and OT will continue to work with the patient, he may need to go to a half-way facility for short-term rehab services. #2 uncontrolled pain secondary to pubic rami fractures and fractures of the left sacrum-patient is currently on oxycodone, acetaminophen, and IV morphine as needed, I will add Celebrex to see if this will help pain control. Total clinical time spent by myself addressing the patient's medical issues, reviewing all of his data, and collaborating with patient's care team: 35 minutes Charges/Coding Visit Charges Inpatient E&M: 20925 Subs Hosp L2
[2025-07-13 17:28] VITALS: BP 107/69; PULSE 97; RESP 17; TEMP 37.1; O2SAT 94
[2025-07-13 20:37] VITALS: BP 137/76; PULSE 93; RESP 16; TEMP 36.7; O2SAT 98
[2025-07-14 04:54] VITALS: BP 147/93; PULSE 77; RESP 16; TEMP 36.6; O2SAT 98
[2025-07-14 05:22] VITALS: BMI 31.0
[2025-07-14 08:08] VITALS: BP 141/80; PULSE 78; RESP 18; TEMP 36.4; O2SAT 96
[2025-07-14] MEDS: Heparin Injection (Vial) 5,000 UNIT/ML VIAL 5000 UNIT SC (09:56)
--- NOTE | 2025-07-14 10:58 | CASEMGMT ---
Social Work Assessment- SW met with pt to discuss advanced directives and discharge planning. Pt is A & O x 3; able to engage in conversation and answer questions appropriately. PCP: Giovanni Mclean Pharmacy: [email or web address] [place] Insurance: [facility] A/D: Not on chart, but reports pt [place] is HCPOA. SW requested documents for scan into chart. Marital/Social: to [place], who is currently on vacation for 2 weeks out of state. Has a daughter in [place] that can assist in the home as she works from home. Pt reports strong social network and supports. 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 Living Situation: Pt lives in a two story home with bedrooms and full bathrooms upstairs. Pt does report a hlaf bath downstairs and a recliner and couch that pt could sleep on. Pt reports a 4 inch step from sidewalk to porch and a 4 inch step from porch into home. Pt garage has a 6 inch step. Pt lives with in the home. Transportation: Pt typically transports self. Reports dtr could assist as needed currently. Prior level of function: Independent. 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 Community services/mental health: none DME: Pt believes that he could borrow a walker; SW educated that pt can get a walker prior to d/c Pt reports that he can return home if he continues to do well. SW remains available to follow. KAYLAH Wilkerson
--- NOTE | 2025-07-14 12:36 | CASEMGMT ---
Addendum entered by Isabel Payne 07/14/25 12:40: ANTONIO ARIZA called [facility] and made referral, waiting on acceptance. Original Note: ANTONIO ARIZA into pt room to discuss DC plan. Pt states he has a walker available at home to use. Discussed OP PT with pt, he does not feel he is able to get to therapy for the next couple of weeks. ANTONIO ARIZA discussed HHC with pt, pt requested [facility]. ANTONIO ARIZA notified pt this RN TO will make a referral to see if able to accept, if not, will provide pt of a list of local [facility] agencies. Pt denies any additional needs at this time.
[2025-07-14 14:14] VITALS: BP 131/75; PULSE 95; RESP 16; TEMP 36.8; O2SAT 95
--- NOTE | 2025-07-14 14:23 | DCINST_ITS ---
Discharge Instructions DC O2, CPAP, BIPAP needs Home O2 Discharge instructions: No Dressing / Incision Discharge Activity: Return to Normal Activity Weight Bearing Status: Full weight bearing (With walker if needed) Follow Up Care Test Results: Test results from this visit will be discussed in further detail at your follow- up appointment, if applicable. Discharge Plan Admission Admit Date/Time: 07/11/25 16:12 Primary Reason for Your Visit: Pubic rami fracture, sacral fracture Attending Provider: Jimmie Bobo Primary Care Provider: Giovanni Mclean Consulting Providers: Sharad Bruno; Alex Vargas Discharge Orders/Prescriptions Prescriptions: New celecoxib 200 mg Capsule 200 mg PO BID Qty: 60 0RF oxycodone 5 mg Tablet 5 - 10 mg PO Q4H PRN PRN (Reason: Pain Score 4-10) 7 Days Qty: 30 0RF Referrals / Follow Up: Giovanni Mclean DO [Primary Care Provider] - Care Physician,No Primary [Non-Staff] - Disposition Disposition (needs filled in before D/C Order can be placed): Home Health Service
--- NOTE | 2025-07-14 14:30 | DS.PCM_ITS ---
Providers Date of Admission: 07/11/25 Date of Discharge: 07/14/25 Primary Care Physician: Dr. Giovanni Mclean DO Reason For Visit: FALL ON LEFT HIP/SHOULDER Diagnosis Discharge Diagnosis (1) Closed fracture of pubic ramus: Status: Acute Code(s): S32.599A - Other specified fracture of unspecified pubis, initial encounter for closed fracture Qualifiers: Encounter type: initial encounter Laterality: left Qualified Code(s): S32.592A - Other specified fracture of left pubis, initial encounter for closed fracture Plan 1. Acute debility secondary to fractures of the left superior and inferior pubic rami and a fracture of the left sacral ala-PT and OT will continue to work with the patient, he may need to go to a retirement facility for short-term rehab services. #2 uncontrolled pain secondary to pubic rami fractures and fractures of the left sacrum-patient is currently on oxycodone, acetaminophen, and IV morphine as needed, I will add Celebrex to see if this will help pain control. Total clinical time spent by myself addressing the patient's medical issues, reviewing all of his data, and collaborating with patient's care team: 35 minutes Medications at Discharge Home Medications celecoxib 200 mg capsule 200 mg PO BID #60 caps 07/14/25 oxycodone 5 mg tablet 5 - 10 mg (1 - 2 x 5 mg) PO Q4H PRN PRN Pain Score 4-10 7 days #30 tabs 07/14/25 Hospital Course Operations None Procedures None Summary of Care Provided Minutes Spent on Discharge: 31 Hospital Course: This 74-year-old white male was seen in the emergency room at [facility] after sustaining a fall at home when he was standing on a bench and the bench flipped over. Labs obtained showed an elevated white blood cell count at 16.4, chemistry profile was unremarkable, x-ray showed a fracture of the left superior and inferior pubic rami and a fracture of the left sacral ala. Due to the fact the patient could not ambulate without maximal assistance in the ER, he was admitted to [place] [id number] and seen by physical therapy, patient continued to have severe pelvic pain and was given analgesics and finally started on Celebrex. There was a thought that the patient might benefit from retirement care but the patient's pain improved during his hospitalization and he was able to be discharged home. On 07/14/2025, patient was seen and examined: On examination he appeared in good health and spirits. Vital signs as documented. Skin warm and dry and without overt rashes. Neck without JVD, neck was supple, trachea midline, thyroid was normal. Lungs clear bilaterally, normal air movement was noted. Heart exam notable for regular rhythm, normal sounds and absence of murmurs, rubs or gallops. Abdomen unremarkable and without evidence of organomegaly, masses, or abdominal aortic enlargement. Bowel sounds are present, abdomen is not distended. Extremities nonedematous, no cyanosis was noted, no clubbing was noted. Neuro: Cranial nerves II through XII are grossly intact, no focal motor deficits were noted, sensation to light touch and pinprick intact, motor exam 5/5 throughout. Psych: Patient is alert and oriented x3, he does not appear anxious or depressed, he does not appear agitated. Patient was discharged home in stable condition on 07/14/2025 Weight / BMI Weight Weight: 100.5 kg Body Mass Index (BMI) 31.0 ABG / Lab / Microbiology Data 07/12/25 05:01 07/12/25 05:01 D/C Instructions Weight Bearing Status: Full weight bearing (With walker if needed) DC O2, CPAP, BIPAP Needs Home O2 Discharge instructions: No Meaningful Use Info Meaningful Use Meaningful Use Diagnoses (Choose all that apply): None applicable Discharge Plan Admission Admit Date/Time: 07/11/25 16:12 Primary Reason for Your Visit: Pubic rami fracture, sacral fracture Attending Provider: Jimmie Bobo Primary Care Provider: Giovanni Mclean Consulting Providers: Sharad Bruno; Alex Vargas Discharge Orders/Prescriptions Prescriptions: New celecoxib 200 mg Capsule 200 mg PO BID Qty: 60 0RF oxycodone 5 mg Tablet 5 - 10 mg PO Q4H PRN PRN (Reason: Pain Score 4-10) 7 Days Qty: 30 0RF Referrals / Follow Up: Giovanni Mclean DO [Primary Care Provider] - Care Physician,No Primary [Non-Staff] - Disposition Disposition (needs filled in before D/C Order can be placed): Home Health Service Charges/Coding Visit Charges Inpatient E&M: 94834 Disch Hosp
--- NOTE | 2025-07-14 14:36 | CASEMGMT ---
ANTONIO ARIZA received call from [facility], pt is accepted. SOC will be 07/16/25. ANTONIO ARIZA notified pt, denies questions at this time.
== END 2025-07-14 17:15 | disposition home health service (06) | DRG 536 ==
LOC: ED 16:18 → MS3 16:47
PROVIDERS: Admitting Provider Internal Medicine; Emergency Provider Emergency Medicine; PCP Family Medicine; Visit Provider Internal Medicine
DX: S32.502A Unspecified fracture of left pubis, initial encounter for closed fracture (principal); S32.10XA Unspecified fracture of sacrum, initial encounter for closed fracture; M16.0 Bilateral primary osteoarthritis of hip; R26.2 Difficulty in walking, not elsewhere classified; W17.89XA Other fall from one level to another, initial encounter; M19.012 Primary osteoarthritis, left shoulder; S40.912A Unspecified superficial injury of left shoulder, initial encounter; Z96.643 Presence of artificial hip joint, bilateral; Y93.89 Activity, other specified; R53.81 Other malaise
CPT/HCPCS: 36415; 73030; 73502; 80048; 85025; 94668; 97116; 97162; 97165; 97530; 99283; A4216; J2405